=== PATIENT | female | born 1980 | race Caucasian/White ===

== ENCOUNTER 2016-06-21 18:15 | Observation (INO) | payer OTHER ==
[2016-06-21] MEDS ORDERED: Zofran 4 MG/2 ML VIAL IV ONE (18:43)
[2016-06-21] MEDS ORDERED: PROTONIX 40 MG IV IV ONE ×2 (18:43→19:11)
--- NOTE | 2016-06-21 18:43 | ERPHSYRPT ---
- History of Present Illness Historian: patient, family Exam Limitations: no limitations Patient Subjective Stated Complaint: Pt states she has had some wheezing and a cough since . Today she started having severe epigastric pain. She states the pain gets worse when she inhales. She also complains of feeling nauseous. She tried to get into Dr. Aguila but he was closed today. Triage Nursing Assessment: Pt alert and oriented x3. skin pink warm and dry. afebrile. pt sob upon arrival. bowel sounds present x4. abdomen soft, nontender. lung sounds clear and equal Timing/Duration: today Activities at Onset: none Quality: cramping, sharpness Abdominal Pain Onset Location: RUQ, LUQ, epigastric Severity of Pain-Max: moderate Severity of Pain-Current: moderate Modifying Factors: Improves With: coughing Associated Symptoms: shortness of breath Hx Tetanus, Diphtheria Vaccination/Date Given: No Hx Influenza Vaccination/Date Given: Yes Hx Pneumococcal Vaccination/Date Given: Yes Immunizations Up to Date: Yes <EDGAR GAYLE - Last Filed: 06/21/16 19:07> <YOSELIN JOHNSON - Last Filed: 06/21/16 21:47> - History of Present Illness Time Seen by Provider: 06/21/16 18:25 Allergies/Adverse Reactions: Sulfa (Sulfonamide Antibiotics) [Sulfa(Sulfonamide Antibiotics)] Allergy ( Verified 06/21/16 18:28) Rash topiramate [From Topamax] Allergy (Verified 06/21/16 18:28) confusion aspirin Adverse Reaction (Severe, Verified 06/21/16 18:28) advised not to take it d/t it will cause her to bleed Home Medications: Albuterol 8 gm Mdi Hfa [Ventolin Hfa MDI] 2 puff IH Q4HPRN PRN 07/14/14 [ History] Metformin HCl 500 mg [Glucophage 500 MG] 500 mg PO DAILY PRN 07/14/14 [ History] Citalopram Hydrobromide 20 mg* [ceLEXa 20 MG] 20 mg PO DAILY 07/24/14 [ History] Lorazepam 0.5 mg [Ativan 0.5 MG] 0.5 mg PO BID 07/02/15 [History] Montelukast Sodium [Singulair] 10 mg PO DAILY 07/02/15 [History] Sitagliptin Phosphate [Januvia] 100 mg PO DAILY 07/08/15 [History] Famotidine 40 mg PO BID 03/09/16 [History] Levothyroxine Sodium 75 Mcg [Synthroid 75 Mcg] 75 mcg PO DAILY 03/09/16 [ History] Metformin HCl 500 mg [Glucophage 500 MG] 250 mg PO HSPRN PRN 03/09/16 [ History] Multivitamin with Folic Acid [One Daily Multivitamin Tablet] 1 tab PO DAILY [History] Diphenhydramine HCl 25 mg [Benadryl 25 mg Capsule] 25 mg PO QHS 05/28/16 [ History] Prednisone 20 mg [Deltasone 20 mg] 20 mg PO DAILY 05/28/16 [History] Albuterol 2.5 mg/3 ml Neb [Proventil 2.5 mg/3 ml Neb] 2.5 mg IH Q4HPRN PRN 06/21/16 [History] - Review of Systems Constitutional: No Symptoms Eyes: No Symptoms Ears, Nose, & Throat: No Symptoms Respiratory: Cough, Dyspnea Cardiac: No Symptoms Abdominal/Gastrointestinal: Abdominal Pain, Nausea Musculoskeletal: No Symptoms Skin: No Symptoms Neurological: No Symptoms Psychological: No Symptoms Endocrine: No Symptoms Hematologic/Lymphatic: No Symptoms Immunological/Allergic: No Symptoms <EDGAR GAYLE - Last Filed: 06/21/16 19:07> - Past Medical History Pertinent Past Medical History: Yes Neurological History: Migraines, Other ENT History: No Pertinent History Cardiac History: High Cholesterol, Hypertension, Other Respiratory History: Asthma, Bronchitis, COPD, Sleep Apnea Endocrine Medical History: Diabetes Type II, Hypothyroidism Musculoskeletal History: Other GI Medical History: No Pertinent History History: No Pertinent History Psycho-Social History: Anxiety, Depression Female Reproductive Disorders: Menstrual Problems, Other Other Medical History: ANEMIA. ITP - Past Surgical History Past Surgical History: No Neuro Surgical History: No Pertinent History Cardiac: No Pertinent History Respiratory: No Pertinent History Gastrointestinal: No Pertinent History Genitourinary: No Pertinent History Musculoskeletal: No Pertinent History Female Surgical History: No Pertinent History - Social History Smoking Status: Never smoker Exposure to second hand smoke: Yes Alcohol Use: None Drug Use: none Patient Lives Alone: No Significant Family History: no pertinent family hx - Female History Hx Last Menstrual Period: 05/22/2016 Hx Now: No <EDGAR GAYLE - Last Filed: 06/21/16 19:07> - Physical Exam General Appearance: moderate distress, obese (with truncal obesity prominent) Eye Exam: eyes nml inspection Ears, Nose, Throat Exam: normal ENT inspection, pharynx normal Neck Exam: normal inspection, non-tender, supple, full range of motion Respiratory Exam: normal breath sounds, chest tenderness (lower costal margins canelo), lungs clear, airway intact Cardiovascular Exam: regular rate/rhythm, normal heart sounds, normal peripheral pulses Gastrointestinal/Abdomen Exam: soft, normal bowel sounds, tenderness (RUQ, LUQ, and epigastrium) Back Exam: normal inspection, normal range of motion Extremity Exam: normal inspection, normal range of motion, pelvis stable Neurologic Exam: alert, 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, cooperative Skin Exam: normal color, warm, dry SpO2 Interpretation: normal SpO2: 97 Oxygen Delivery: Room Air <EDGAR GAYLE - Last Filed: 06/21/16 19:07> - Course Nursing assessment & vital signs reviewed: Yes <EDGAR GAYLE - Last Filed: 06/21/16 19:07> - Course EKG Interpreted by Me: RATE (85), Sinus Rhythm, NORMAL AXIS, LAFB, Non-specific ST Changes - Radiology Exams cxr X-ray Interpretation: Interpreted by me, Negative - CT Exams abd/pelvis CT Interpretation: Tele-radiologist Report (normal eppendix, fatty liver, no acute) <YOSELIN JOHNSON - Last Filed: 06/21/16 21:47> Ordered Tests: Active Orders 24 hr Category Date Time Status Clean Catch Urine Specimen STAT Care 06/21/16 18:43 Active EKG-ER Only STAT Care 06/21/16 18:43 Active IV Insertion STAT Care 06/21/16 19:07 Active ABDOMEN AND PELVIS W CONTRAST [CT] Stat Exams 06/21/16 19:44 Taken CHEST 1 VIEW (PORTABLE) Stat Exams 06/21/16 18:43 Taken CBC W DIFF Stat Lab 06/21/16 18:59 Completed CMP Stat Lab 06/21/16 18:59 Completed HCG QUALITATIVE,SERUM Stat Lab 06/21/16 19:45 Completed LIPASE Stat Lab 06/21/16 18:59 Completed UA W/ MICROSCOPIC Stat Lab 06/21/16 19:20 Completed Respiratory Nebulizer STAT RT 06/21/16 19:43 Completed Medication Summary Generic Name Dose Route Start Last Admin Trade Name Freq PRN Reason Stop Dose Admin Sodium Chloride 1,000 mls @ 100 mls/hr 06/21/16 19:45 06/21/16 19:49 Sodium Chloride 0.9% 1000 Ml IV 07/21/16 19:44 100 mls/hr .Q10H CAITY Administration Discontinued Medications Generic Name Dose Route Start Last Admin Trade Name Freq PRN Reason Stop Dose Admin Albuterol/Ipratropium 3 ml 06/21/16 19:43 06/21/16 19:57 Duoneb 0.5-3 Mg/3 Ml Neb IH 06/21/16 19:44 3 ml STAT ONE Administration Albuterol/Ipratropium Confirm 06/21/16 19:55 Duoneb 0.5-3 Mg/3 Ml Neb Administered 06/21/16 19:56 Dose 3 ml IH .STK-MED ONE Hydromorphone HCl 0.5 mg 06/21/16 19:44 06/21/16 19:49 Dilaudid 1 Mg/Ml Injection IV 06/21/16 19:45 0.5 mg STAT ONE Administration Hydromorphone HCl Confirm 06/21/16 19:47 Dilaudid 1 Mg/Ml Injection Administered 06/21/16 19:48 Dose 1 mg .ROUTE .STK-MED ONE Hydromorphone HCl 0.5 mg 06/21/16 21:39 Dilaudid 1 Mg/Ml Injection IV 06/21/16 21:40 STAT ONE Sodium Chloride Confirm 06/21/16 19:47 Sodium Chloride 0.9% 1000 Ml Administered 06/21/16 19:48 Dose 1,000 mls @ ud .ROUTE .STK-MED ONE Ondansetron HCl 4 mg 06/21/16 18:43 06/21/16 19:14 Zofran 4 Mg/2 Ml Vial IV 06/21/16 18:44 4 mg STAT ONE Administration Ondansetron HCl Confirm 06/21/16 19:11 Zofran 4 Mg/2 Ml Vial Administered 06/21/16 19:12 Dose 4 mg .ROUTE .K-MED ONE Pantoprazole Sodium 40 mg 06/21/16 18:43 06/21/16 19:14 Protonix 40 Mg Iv IV 06/21/16 18:44 40 mg STAT ONE Administration Pantoprazole Sodium Confirm 06/21/16 19:11 Protonix 40 Mg Iv Administered 06/21/16 19:12 Dose 40 mg IV .K-MED ONE Lab/Rad Data: Laboratory Result Diagrams 06/21/16 18:59 06/21/16 18:59 Laboratory Results 06/21/16 06/21/16 06/21/16 Range/Units 19:45 19:20 18:59 WBC (4.0-10.5) K/mm3 RBC (4.1-5.4) M/mm3 Hgb (12.0-16.0) gm/dl Hct (35-47) % MCV (78-100) fl MCH (26-32) pg MCHC (32-36) g/dl RDW (11.5-14.0) % Plt Count (150-450) K/mm3 MPV (6-9.5) fl Gran % (36.0-66.0) % Lymphocytes % (24.0-44.0) % Monocytes % (0.0-12.0) % Eosinophils % (0.00-5.0) % Basophils % (0.0-0.4) % Basophils # (0-0.4) Sodium 138 (136-145) mEq/L Potassium 3.5 (3.5-5.1) mEq/L Chloride 104 (98-107) mEq/L Carbon Dioxide 25.9 (21-32) mEq/L Anion Gap 12.0 (5-15) MEQ/L BUN 21 H (9-20) mg/dL Creatinine 0.94 (0.55-1.30) mg/dl Estimated GFR > 60 ML/MIN Glucose 207 H (70-110) MG/DL Calcium 8.7 (8.5-10.1) mg/dL Total Bilirubin 0.2 (0.2-1.0) mg/dL AST 9 L (15-37) U/L ALT 38 (12-78) U/L Alkaline Phosphatase 109 (46-116) U/L Serum Total Protein 6.9 (6.4-8.2) gm/dL Albumin 3.3 L (3.4-5.0) g/dL Lipase 107 (73-393) U/L Serum , Qual NEGATIVE (Negative) Ur Collection Type CLEAN CATCH Urine Color YELLOW (YELLOW) Urine Appearance CLEAR (CLEAR) Urine pH 5.5 (5-6) Ur Specific [place] 1.010 (1.005-1.025) Urine Protein NEGATIVE (Negative) Urine Glucose (UA) NEGATIVE (NEGATIVE) mg/dL Urine Ketones NEGATIVE (NEGATIVE) Urine Nitrite NEGATIVE (NEGATIVE) Urine Bilirubin NEGATIVE (NEGATIVE) Urine Urobilinogen 0.2 (0-1) mg/dL Urine WBC (Auto) MODERATE (NEGATIVE) Urine RBC (Auto) NEGATIVE (0-5) Chago/ul Urine Microscopic WBC 2-5 (0-5) /HPF Ur Epithelial Cells MODERATE (FEW) /HPF Urine Bacteria FEW (NEGATIVE) /HPF Specimen Received [id number] 06/21/16 Range/Units 18:59 WBC 7.1 (4.0-10.5) K/mm3 RBC 3.86 L (4.1-5.4) M/mm3 Hgb 10.6 L (12.0-16.0) gm/dl Hct 33.4 L (35-47) % MCV 86.5 (78-100) fl MCH 27.4 (26-32) pg MCHC 31.7 L (32-36) g/dl RDW 14.3 H (11.5-14.0) % Plt Count 284 (150-450) K/mm3 MPV 9.1 (6-9.5) fl Gran % 70.9 H (36.0-66.0) % Lymphocytes % 19.6 L (24.0-44.0) % Monocytes % 6.5 (0.0-12.0) % Eosinophils % 2.6 (0.00-5.0) % Basophils % 0.4 (0.0-0.4) % Basophils # 0.03 (0-0.4) Sodium (136-145) mEq/L Potassium (3.5-5.1) mEq/L Chloride (98-107) mEq/L Carbon Dioxide (21-32) mEq/L Anion Gap (5-15) MEQ/L BUN (9-20) mg/dL Creatinine (0.55-1.30) mg/dl Estimated GFR ML/MIN Glucose (70-110) MG/DL Calcium (8.5-10.1) mg/dL Total Bilirubin (0.2-1.0) mg/dL AST (15-37) U/L ALT (12-78) U/L Alkaline Phosphatase (46-116) U/L Serum Total Protein (6.4-8.2) gm/dL Albumin (3.4-5.0) g/dL Lipase (73-393) U/L Serum , Qual (Negative) Ur Collection Type Urine Color (YELLOW) Urine Appearance (CLEAR) Urine pH (5-6) Ur Specific Greenleaf (1.005-1.025) Urine Protein (Negative) Urine Glucose (UA) (NEGATIVE) mg/dL Urine Ketones (NEGATIVE) Urine Nitrite (NEGATIVE) Urine Bilirubin (NEGATIVE) Urine Urobilinogen (0-1) mg/dL Urine WBC (Auto) (NEGATIVE) Urine RBC (Auto) (0-5) Chago/ul Urine Microscopic WBC (0-5) /HPF Ur Epithelial Cells (FEW) /HPF Urine Bacteria (NEGATIVE) /HPF Specimen Received <EDGAR GAYLE - Last Filed: 06/21/16 19:07> - Progress Will see patient in: hospital (observation) Counseled pt/family regarding: lab results, diagnosis, need for follow-up, rad results <YOSELIN JOHNSON - Last Filed: 06/21/16 21:47> - Progress Progress Note: 06/21/16 21:45 The patient was initially seen by Dr Gayle. She usually has DM and asthma. Tonite she has upper abd pain since all day. No hx of this in the past. No prior abd surgeries. States not . No fever. PE: Very tender epigastrum. Some guarding. No murphys sign. Lungs mostly clear. CAlled Dr Ramy Mendoza for [facility] and will place in obs and consult surgeon and get GB sonogram. (YOSELIN JOHNSON) <EDGAR GAYLE - Last Filed: 06/21/16 19:07> - Departure Time of Disposition: 21:46 Departure Disposition: Observation Critical Care Time: No <YOSELIN JOHNSON - Last Filed: 06/21/16 21:47> - Departure Clinical Impression: Type 2 diabetes mellitus with hyperglycemia, without long-term current use of insulin, Anxiety disorder, Epigastric abdominal pain, Hx of intrinsic asthma Condition: Fair Referrals: TIM MAGUIRE MD [Primary Care Provider] -
[2016-06-21 19:05] LABS: BASOPHIL % 0.4 % (0.0-0.4); Eosinophil % 2.6 % (0.00-5.0); Granulocytes % 70.9 % (36.0-66.0); Lymphocytes % 19.6 % (24.0-44.0); Mean Cell Volume 86.5 fl (78-100); Mean Corpuscular Hemoglobin 27.4 pg (26-32); Mean Platelet Volume 9.1 fl (6-9.5); Monocytes % 6.5 % (0.0-12.0); Platelet Count 284 K/mm3 (150-450); Red Blood Count 3.86 M/mm3 (4.1-5.4); Red Cell Distribution Width 14.3 % (11.5-14.0); White Blood Count 7.1 K/mm3 (4.0-10.5)
[2016-06-21] MEDS ORDERED: Zofran 4 MG/2 ML VIAL ONE (19:11)
[2016-06-21 19:34] LABS: COMPLETE URINE MICROSCOPIC? YES; Collection Type CLEAN CATCH; Epithelial Cells MODERATE /HPF (FEW); Ph 5.5 (5-6)
[2016-06-21 19:35] LABS: Bacteria FEW /HPF (NEGATIVE)
[2016-06-21 19:37] LABS: ALBUMIN 3.3 g/dL (3.4-5.0); ALKALINE PHOSPHATASE 109 U/L (46-116); BILIRUBIN,TOTAL 0.2 mg/dL (0.2-1.0); BLOOD UREA NITROGEN 21 mg/dL (9-20); CHLORIDE 104 mEq/L (98-107); Carbon Dioxide 25.9 mEq/L (21-32); Glucose 207 MG/DL (70-110); LIPASE 107 U/L (73-393); Potassium 3.5 mEq/L (3.5-5.1); SGOT/AST 9 U/L (15-37); SGPT/ALT 38 U/L (12-78); SODIUM 138 mEq/L (136-145); Total Protein 6.9 gm/dL (6.4-8.2)
[2016-06-21] MEDS ORDERED: DUONEB 0.5-3 MG/3 ml Neb IH ONE ×2 (19:43→19:55)
[2016-06-21] MEDS ORDERED: DILAUDID 1 MG/ML INJECTION IV ONE ×2 (19:44→21:39)
[2016-06-21] MEDS ORDERED: Sodium Chloride 0.9% 1000 ML 1,000 ML IV SCH (19:45)
[2016-06-21] MEDS ORDERED: DILAUDID 1 MG/ML INJECTION ONE ×2 (19:47→21:52)
[2016-06-21] MEDS ORDERED: Sodium Chloride 0.9% 1000 ML 1,000 ML ONE (19:47)
[2016-06-21] MEDS ORDERED: DUONEB 0.5-3 MG/3 ml Neb IH PRN (22:12)
[2016-06-21] MEDS ORDERED: NovoLOG Insulin SQ PRN (22:12)
[2016-06-21] MEDS: Sodium Chloride 0.9% 1000 ML 1,000 ML IV SCH (22:45)
[2016-06-22] MEDS: DILAUDID 2 MG INJECTION IV PRN ×4 (03:25→17:00)
[2016-06-22 05:48] LABS: Mean Cell Volume 87.2 fl (78-100); Mean Platelet Volume 9.1 fl (6-9.5); Platelet Count 292 K/mm3 (150-450); Red Blood Count 3.75 M/mm3 (4.1-5.4); Red Cell Distribution Width 14.7 % (11.5-14.0); White Blood Count 7.1 K/mm3 (4.0-10.5)
[2016-06-22 06:06] LABS: Mean Corpuscular Hemoglobin 27.4 pg (26-32)
[2016-06-22 06:18] LABS: ALBUMIN 3.3 g/dL (3.4-5.0); ALKALINE PHOSPHATASE 92 U/L (46-116); ANION GAP 11.4 MEQ/L (5-15); BILIRUBIN,TOTAL 0.3 mg/dL (0.2-1.0); BLOOD UREA NITROGEN 19 mg/dL (9-20); CHLORIDE 107 mEq/L (98-107); Carbon Dioxide 28.2 mEq/L (21-32); Glucose 104 MG/DL (70-110); Potassium 3.8 mEq/L (3.5-5.1); SGOT/AST 10 U/L (15-37); SGPT/ALT 36 U/L (12-78); SODIUM 143 mEq/L (136-145); Total Protein 6.7 gm/dL (6.4-8.2)
[2016-06-22] MEDS: Sodium Chloride 0.9% 1000 ML 1,000 ML IV SCH ×2 (06:44→17:00)
[2016-06-22] MEDS: Zofran 4 MG/2 ML VIAL IV PRN ×2 (08:11→13:13)
--- NOTE | 2016-06-22 08:29 | XRAY ---
Indication: Short of breath and wheezing. Comparison: May 28, 2016 Portable chest again demonstrates normal heart, lungs, and bony thorax.
--- NOTE | 2016-06-22 08:32 | XRAY ---
Indication: Bilateral upper abdominal pain and nausea. Multiple contiguous axial images obtained through the abdomen and pelvis using 80 cc Isovue 370 contrast only. Comparison: July 23, 2014 Lung bases are clear. Heart is not enlarged. Noncontrasted stomach and bowel loops appear nonobstructed. There is now mild diffuse scattered colonic fecal debris. Normal appendix. No free fluid/air. Stable fatty liver and small fatty umbilical hernia. Remaining liver, gallbladder, pancreas, spleen, adrenal glands, kidneys, ureters, bladder, uterus, and aorta appear unremarkable. No pathologic retroperitoneal lymphadenopathy. Osseous structures intact. Impression: 1. Fecal stasis without obstruction. 2. Stable fatty liver and fatty umbilical hernia. 3. No acute intra-abdominal/pelvic abnormalities. CT DI is 28.13
[2016-06-22 08:53] LABS: BAND 2 % (0.0-2.0); Platelet Estimate NORMAL (NORMAL); Total Cells Counted 100
[2016-06-22] MEDS ORDERED: BENADRYL 50 MG/ML IV ONE (09:52)
[2016-06-22] MEDS ORDERED: HOLD METFORMIN PRODUCTS FOR 48 HOURS MC SCH (10:00)
[2016-06-22] MEDS ORDERED: PROTONIX 40 MG IV IV SCH (10:00)
--- NOTE | 2016-06-22 12:03 | XRAY ---
Indication: Right upper quadrant pain. Two-dimensional right upper quadrant abdominal sonogram performed. Comparison: July 24, 2014 Sonogram again limited due to body habitus. Pancreas not seen and the liver is poorly visualized. Liver appears again fatty in echogenicity. No ascites. Gallbladder normally distended without gallstones, wall thickening, or pericholecystic fluid. Common bile duct measures 6.2 mm. No intrahepatic biliary distention. Right kidney measures 14.2 cm in length. No renal mass or hydronephrosis. Impression: Again limited exam due to body habitus. Stable fatty liver. Again negative gallbladder sonogram.
--- NOTE | 2016-06-22 14:50 | HP ---
HISTORY OF PRESENT ILLNESS: Gertrude Lees is a 35 year old woman with past medical history of hypertension, asthma, diabetes mellitus, anxiety/depression, chronic pain syndrome and obesity. She was admitted through the emergency room yesterday with symptoms of upper abdominal pain which has been ongoing for one and a half weeks however was particularly worse yesterday. It was associated with nausea. There was no precipitating factor as per patient. Also she had been moving her bowels earlier, too. The patient had also complained of some wheezing, chest congestion for about three to four days. After initial evaluation in the emergency room she was treated with Albuterol/Atrovent nebulization, Dilaudid 1 mg IV x2, Zofran 4 mg IV x1, Protonix 40 mg IV x1. She was admitted to the medical floor for further monitoring and management. Since admission she was kept NPO and underwent additional studies. At the time of this evaluation she is alert, awake, comfortable, still having some upper abdominal pain. However it is controlled with Dilaudid. Complains of nausea. No history of vomiting. PAST MEDICAL HISTORY: As noted above. History of chronic anemia, idiopathic thrombocytopenic purpura and hypothyroidism. PAST SURGICAL HISTORY: Noncontributory. MEDICATIONS: Current medications were reviewed. ALLERGIES: SULFA, TOPAMAX, ASPIRIN. FAMILY HISTORY: Noncontributory to current admission. SOCIAL HISTORY: The patient has not smoked but has history of exposure to secondhand smoke. Denies alcohol abuse or illicit drug use. 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 REVIEW OF SYSTEMS: Denies headache or dizziness. Denies chest pain. Complains of shortness of breath (mild). Complains of cough/chest congestion. Complains of upper abdominal pain, nausea. No vomiting. Denies constipation or diarrhea. Denies urinary complaints. PHYSICAL EXAMINATION: A middle aged woman lying comfortably in bed, not in acute distress. VITAL SIGNS: Blood pressure 107/58, heart rate 74, respiratory rate 18, temperature 98.2F. Oxygen saturations 99% on 2 liters. HEENT: No pallor or icterus is noted. NECK: No JVD is present. CVS: S1, S2 present. RESPIRATORY: Breath sounds are bilaterally diminished and clear to auscultation. ABDOMEN: Obese, soft, mild tenderness present epigastric and right upper quadrant area. No guarding or rigidity present. NEURO: She is alert, oriented x3. EXTREMITIES: No edema on bilateral lower extremities. LABORATORY DATA AND TESTS: Labs from admission were reviewed. Labs from today showed CBC with white blood cell 7.1, hemoglobin 10.3, hematocrit 32.7, neutrophils 73, bands 2, lymphocytes 22. Chest x-ray on admission was normal. CT scan of abdomen and pelvis showed fecal stasis without obstruction, stable fatty liver and fatty umbilical hernia, no acute intra-abdominal/pelvic pathology. Gallbladder ultrasound from earlier today showed limited exam due to body habitus, stable fatty liver, negative gallbladder sonogram. EKG showed sinus rhythm, nonspecific ST-T changes. ASSESSMENT: A 35 year old woman with impression: 1) Upper abdominal pain (epigastric and right upper quadrant area). 2) Acute bronchitis. 3) History of hypertension/congestive heart failure. 4) History of diabetes mellitus. 5) History of asthma. 6) Chronic pain syndrome. 7) Anxiety/depression. 8) Morbid obesity. 9) Hypothyroidism. 10) Chronic anemia. 11) History of idiopathic thrombocytopenic purpura. 12) Questionable urinary tract infection. PLAN: The patient is admitted for further monitoring and management. Since admission she has been kept NPO and will continue for now. Will continue PRN analgesics and antiemetic. Surgical consultation has been requested and is pending. Will add IV proton pump inhibitor. Also will continue to hold prednisone at this time. Will obtain baseline troponin due to the patient's multiple cardiac risk factors. The patient's clinical condition, work up results and plan of management was discussed with her. She seems to be in understanding and agreement.
[2016-06-22] MEDS ORDERED: Singulair 10 MG PO SCH (15:00)
[2016-06-22] MEDS ORDERED: KEFLEX 500 MG PO SCH (15:00)
[2016-06-22] MEDS ORDERED: SYNTHROID 75 MCG PO SCH (15:00)
[2016-06-22] MEDS ORDERED: THERAGRAN MULTIVITAMIN PO SCH (15:00)
[2016-06-22] MEDS ORDERED: TYLENOL 325 MG PO PRN (20:10)
[2016-06-22] MEDS ORDERED: TYLENOL 325 MG ONE (20:12)
[2016-06-22 20:22] VITALS: BP 108/61
[2016-06-22 21:12] VITALS: PULSE 80; O2SAT 95
[2016-06-22] MEDS ORDERED: Ativan 0.5 MG PO SCH (22:00)
[2016-06-22] MEDS ORDERED: Pepcid 20 MG PO SCH (22:00)
[2016-06-22] MEDS ORDERED: BENADRYL 25 MG CAPSULE PO SCH (22:00)
[2016-06-22] MEDS ORDERED: NON-FORMULARY ITEM (Famotidine [Famotidine] 40 MG) PO SCH (22:00)
--- NOTE | 2016-06-23 08:32 | CONS ---
CONSULT DATE: 06/22/2016 HISTORY: The patient is a 35 year-old female with multiple medical problems came in with some shortness of breath, some upper abdominal aches and pains associated with slight nausea. No vomiting. No bloody stool. No diarrhea. She told me the pain just started yesterday. She had some vague aches a week or so prior to that. She had some chest congestion. PAST MEDICAL HISTORY: Chronic pain syndrome, obesity, anxiety, depression, diabetes, asthma, hypertension. PAST SURGICAL HISTORY: She said she has got all of her parts. She has not had any prior abdominal surgery. MEDICATIONS: Prior to admission includes Albuterol, Proventil, Metformin, Citalopram, lorazepam, Montelukast, Januvia, famotidine, levothyroxine for some hypothyroidism, Metformin, multivitamin, diphenhydramine, prednisone 20 mg daily. ALLERGIES: SULFA, TOPAMAX, ASPIRIN. FAMILY HISTORY: Cancer, heart disease, diabetes. No family history of inflammatory bowel disease. SOCIAL HISTORY: No smoking or alcohol abuse. She is exposed to secondhand smoke. REVIEW OF SYSTEMS: Ten systems reviewed pertinent for chest congestion and respiratory issues as well as multiple medical problems. No current chest pain or shortness of breath. She is wearing glasses. Otherwise she has hypercholesterolemia, hypertension, hypothyroidism, diabetes, sleep apnea, chronic obstructive pulmonary disease, bronchitis, asthma, anxiety/depression, history of some idiopathic thrombocytopenic purpura in the past. PHYSICAL EXAMINATION: GENERAL: No acute distress. HEENT: Sclera nonicteric. NECK: No JVD. CHEST: Equal excursion, nonlabored breathing. CVS: Regular rhythm and pulse. ABDOMEN: Obese, soft. She had some mild tenderness along the right costal margin that is much improved from when she came in before, otherwise no peritoneal signs. EXTREMITIES: No edema. NEURO: Alert, moving extremities grossly symmetrically. LAB DATA AND TESTS: CT scan and ultrasound negative. Gallbladder ultrasound fatty liver, no gallstones. Chest x-ray fairly unremarkable. CT scan compared to prior study 07/23/2014 to current study shows no acute intra-abdominal pelvic abnormalities, fatty liver, small fatty umbilical hernia otherwise some fecal stasis without any evidence of obstruction, normal appendix, no free air. Hemoglobin A1C 6.3. White blood cell count 7.1, hemoglobin 10.3, PLT 292,000. Liver function test unremarkable. Total bilirubin 0.3, alkaline phosphatase 92, lipase 107. HCG was negative. IMPRESSION: Some vague upper abdominal pain that is improved in this 35 year-old female with multiple medical problems. It could be anything from some gastritis which she had been on prednisone in the past, some duodenitis versus some chronic cholecystitis or biliary dyskinesia. She said she has not had a HIDA scan before. Ultrasound does not show any stones. I feel she would benefit from HIDA scan for further evaluation as above and possible consideration of upper and lower endoscopy for further evaluation if the HIDA is negative. The patient said she has not had prior endoscopy. Either way no emergent surgery is necessary. She actually wants to eat and go home as she is feeling much better than when she came in. If she does go home then it could be worked up as an outpatient. I would recommend checking HIDA and if that is negative consider upper and/or lower endoscopy as she has a little bit low hemoglobin. She agrees with the plan. She wants to try to eat and possibly go home tonight. If she does can set up HIDA scan as an outpatient.
[2016-06-23] MEDS ORDERED: ceLEXa 20 MG PO SCH (10:00)
[2016-06-23] MEDS ORDERED: MULTIVITAMIN WITH FOLIC ACID PO SCH (10:00)
== END 2016-06-22 22:35 | disposition home or self-care (01) ==
LOC: ED 18:15 → MED SURG 22:03
PROVIDERS: ADMIT General Practice; ATTEND General Practice
DX: R10.11 Right upper quadrant pain (principal); R10.13 Epigastric pain; J20.9 Acute bronchitis, unspecified; E11.9 Type 2 diabetes mellitus without complications; Z79.4 Long term (current) use of insulin; I11.0 Hypertensive heart disease with heart failure; I50.9 Heart failure, unspecified; J45.909 Unspecified asthma, uncomplicated; G89.4 Chronic pain syndrome; F45.42 Pain disorder with related psychological factors; F41.8 Other specified anxiety disorders; E66.01 Morbid (severe) obesity due to excess calories; E03.9 Hypothyroidism, unspecified; D53.9 Nutritional anemia, unspecified
CPT/HCPCS: 36000; 36415; 71010; 74177; 76705; 80053; 81000; 82962; 83036; 83690; 84484; 84703; 85025; 93005; 94640; 94760; 96360; 96361; 96375; 96376; 99285; G0378; J1170; J1200; J2405

== ENCOUNTER 2016-07-12 19:17 | Emergency (ER) | payer OTHER ==
[2016-07-12] MEDS ORDERED: PROVENTIL 2.5 MG/3 ML NEB IH ONE ×2 (19:41→19:56)
--- NOTE | 2016-07-12 19:47 | ERPHSYRPT ---
- History of Present Illness Time Seen by Provider: 07/12/16 19:29 Source: patient Exam Limitations: no limitations Patient Subjective Stated Complaint: reports wheezing for 1 week - right-sided cp et arm pain as well - increased swelling in the legs - reports also 1 episode of diarrhea Triage Nursing Assessment: ambulatory to treatment area - steady gait - moves all extremities with equal strength. alert/oriented - grimmacing affect. skin pwd - no rash/injury. resps easy - tachypnea - non-labored Physician History: FOR THE PAST WEEK PT HAS HAD ACHY/DULL RIGHT ANTERIOR CHEST PAIN ONLY WITH MOVEMENT OF HER RIGHT SHOULDER AND DEEP BREATHING, WHEEZING AND A NON- PRODUCTIVE COUGH; FOR THE PAST 3 DAYS CHILLS; FOR THE PAST 2 DAYS DIARRHEA X1 WITHOUT BLOOD. PT ALSO STATES SHE HAS HAD SWELLING OF BOTH FEET FOR YEARS. Allergies/Adverse Reactions: Sulfa (Sulfonamide Antibiotics) [Sulfa(Sulfonamide Antibiotics)] Allergy ( Verified 07/12/16 19:32) Rash topiramate [From Topamax] Allergy (Verified 07/12/16 19:32) confusion aspirin Adverse Reaction (Severe, Verified 07/12/16 19:32) advised not to take it d/t it will cause her to bleed Home Medications: Albuterol 8 gm Mdi Hfa [Ventolin Hfa MDI] 2 puff IH Q4HPRN PRN 07/14/14 [ History] Metformin HCl 500 mg [Glucophage 500 MG] 500 mg PO DAILY PRN 07/14/14 [ History] Citalopram Hydrobromide 20 mg* [ceLEXa 20 MG] 20 mg PO DAILY 07/24/14 [ History] Lorazepam 0.5 mg [Ativan 0.5 MG] 0.5 mg PO BID 07/02/15 [History] Montelukast Sodium [Singulair] 10 mg PO DAILY 07/02/15 [History] Sitagliptin Phosphate [Januvia] 100 mg PO DAILY 07/08/15 [History] Famotidine 40 mg PO BID 03/09/16 [History] Levothyroxine Sodium 75 Mcg [Synthroid 75 Mcg] 75 mcg PO DAILY 03/09/16 [ History] Metformin HCl 500 mg [Glucophage 500 MG] 250 mg PO HSPRN PRN 03/09/16 [ History] Multivitamin with Folic Acid [One Daily Multivitamin Tablet] 1 tab PO DAILY [History] Diphenhydramine HCl 25 mg [Benadryl 25 mg Capsule] 25 mg PO QHS 05/28/16 [ History] Prednisone 20 mg [Deltasone 20 mg] 20 mg PO DAILY 05/28/16 [History] Albuterol 2.5 mg/3 ml Neb [Proventil 2.5 mg/3 ml Neb] 2.5 mg IH Q4HPRN PRN 06/21/16 [History] Hx Tetanus, Diphtheria Vaccination/Date Given: Yes Hx Influenza Vaccination/Date Given: No Hx Pneumococcal Vaccination/Date Given: No Immunizations Up to Date: Yes - Review of Systems Constitutional: Chills Respiratory: Cough, Wheezing Cardiac: Chest Pain Abdominal/Gastrointestinal: Diarrhea Musculoskeletal: Other (SWELLING OF BOTH FEET FOR YEARS) All Other Systems: Reviewed and Negative - Past Medical History Pertinent Past Medical History: Yes Neurological History: Migraines, Other ENT History: No Pertinent History Cardiac History: High Cholesterol, Hypertension, Other Respiratory History: Asthma, Bronchitis, COPD, Sleep Apnea Endocrine Medical History: Diabetes Type II, Hypothyroidism Musculoskeletal History: Other GI Medical History: No Pertinent History History: No Pertinent History Psycho-Social History: Anxiety, Depression Female Reproductive Disorders: Menstrual Problems, Other Other Medical History: ANEMIA. ITP - Past Surgical History Past Surgical History: No Neuro Surgical History: No Pertinent History Cardiac: No Pertinent History Respiratory: No Pertinent History Gastrointestinal: No Pertinent History Genitourinary: No Pertinent History Musculoskeletal: No Pertinent History Female Surgical History: No Pertinent History - Social History Smoking Status: Never smoker Exposure to second hand smoke: No Alcohol Use: None Drug Use: none Patient Lives Alone: No Significant Family History: no pertinent family hx - Female History Hx Last Menstrual Period: 2 weeks Hx Now: No - Nursing Vital Signs Nursing Vital Signs: Initial Vital Signs Temperature Source Oral Pulse Rate [Right Radial] 100 Pulse Rate 102 Respiratory Rate 14 Blood Pressure [Right Arm] 124/75 Pain Intensity 10 - Physical Exam General Appearance: alert Eye Exam: PERRL/EOMI, eyes nml inspection Ears, Nose, Throat Exam: TMs normal, pharynx normal, moist mucous membranes Neck Exam: normal inspection Respiratory Exam: wheezing (MINIMAL EXPIRATORY WHEEZING OVER BOTH POSTERIOR BASES) Cardiovascular Exam: regular rate/rhythm, normal heart sounds Gastrointestinal/Abdomen Exam: soft, normal bowel sounds Back Exam: normal range of motion Extremity Exam: normal inspection, No pedal edema Neurologic Exam: alert, cooperative Skin Exam: warm, dry SpO2 Interpretation: normal SpO2: 97 Oxygen Delivery: Room Air - Course Nursing assessment & vital signs reviewed: Yes EKG Interpreted by Me: RATE (85), Sinus Rhythm, NORMAL AXIS, NORMAL INTERVALS - Radiology Exams Chest X-ray Interpretation: Interpreted by me, No Pneumonia Ordered Tests: Active Orders 24 hr Category Date Time Status EKG-ER Only STAT Care 07/12/16 19:39 Active CHEST 2 VIEWS (PA AND LAT) Stat Exams 07/12/16 19:40 Taken AMYLASE Stat Lab 07/12/16 19:58 Completed CBC W DIFF Stat Lab 07/12/16 19:58 Completed CMP Stat Lab 07/12/16 19:58 Completed CULTURE,URINE Stat Lab 07/12/16 20:53 Ordered HCG QUALITATIVE,SERUM Stat Lab 07/12/16 19:58 Completed LIPASE Stat Lab 07/12/16 19:58 Completed MAGNESIUM Stat Lab 07/12/16 19:58 Completed TROPONIN Stat Lab 07/12/16 19:58 Completed UA W/ MICROSCOPIC Stat Lab 07/12/16 20:33 Completed Respiratory Nebulizer STAT RT 07/12/16 19:41 Completed Medication Summary Generic Name Dose Route Start Last Admin Trade Name Freq PRN Reason Stop Dose Admin Magnesium Oxide 400 mg 07/12/16 22:00 Mag-Ox 400 PO 08/11/16 21:59 BID CAITY Discontinued Medications Generic Name Dose Route Start Last Admin Trade Name Freq PRN Reason Stop Dose Admin Acetaminophen/Hydrocodone Bitart 2 tab 07/12/16 20:40 07/12/16 20:51 [place] 5/325 Mg PO 07/12/16 20:41 2 tab STAT ONE Administration Acetaminophen/Hydrocodone Bitart Confirm 07/12/16 20:45 [place] 5/325 Mg Administered 07/12/16 20:46 Dose 2 tab .ROUTE .STK-MED ONE Albuterol Sulfate 2.5 mg 07/12/16 19:41 07/12/16 20:04 Proventil 2.5 Mg/3 Ml Neb IH 07/12/16 19:42 2.5 mg STAT ONE Administration Albuterol Sulfate Confirm 07/12/16 19:56 Proventil 2.5 Mg/3 Ml Neb Administered 07/12/16 19:57 Dose 2.5 mg IH .STK-MED ONE Ceftriaxone Sodium 1,000 mg 07/12/16 20:53 Rocephin 1000 Mg Inj IM 07/12/16 20:54 STAT ONE Ondansetron HCl 4 mg 07/12/16 20:41 07/12/16 20:51 Zofran Odt 4 Mg PO 07/12/16 20:42 4 mg STAT ONE Administration Ondansetron HCl Confirm 07/12/16 20:45 Zofran Odt 4 Mg Administered 07/12/16 20:46 Dose 4 mg .ROUTE .STK-MED ONE Lab/Rad Data: Laboratory Result Diagrams 07/12/16 19:58 07/12/16 19:58 Laboratory Results 07/12/16 07/12/16 07/12/16 Range/Units 20:33 19:58 19:58 WBC (4.0-10.5) K/mm3 RBC (4.1-5.4) M/mm3 Hgb (12.0-16.0) gm/dl Hct (35-47) % MCV (78-100) fl MCH (26-32) pg MCHC (32-36) g/dl RDW (11.5-14.0) % Plt Count (150-450) K/mm3 MPV (6-9.5) fl Gran % (36.0-66.0) % Lymphocytes % (24.0-44.0) % Monocytes % (0.0-12.0) % Eosinophils % (0.00-5.0) % Basophils % (0.0-0.4) % Basophils # (0-0.4) Sodium (136-145) mEq/L Potassium (3.5-5.1) mEq/L Chloride (98-107) mEq/L Carbon Dioxide (21-32) mEq/L Anion Gap (5-15) MEQ/L BUN (9-20) mg/dL Creatinine (0.55-1.30) mg/dl Estimated GFR ML/MIN Glucose (70-110) MG/DL Calcium (8.5-10.1) mg/dL Magnesium 1.6 L (1.8-2.4) mg/dL Total Bilirubin (0.2-1.0) mg/dL AST (15-37) U/L ALT (12-78) U/L Alkaline Phosphatase (46-116) U/L Troponin I (0.000-0.056) ng/ml Serum Total Protein (6.4-8.2) gm/dL Albumin (3.4-5.0) g/dL Amylase (25-115) U/L Lipase (73-393) U/L Serum , Qual NEGATIVE (Negative) Ur Collection Type CLEAN CATCH Urine Color YELLOW (YELLOW) Urine Appearance CLEAR (CLEAR) Urine pH 6.0 (5-6) Ur Specific [place] 1.025 (1.005-1.025) Urine Protein NEGATIVE (Negative) Urine Glucose (UA) NEGATIVE (NEGATIVE) mg/dL Urine Ketones NEGATIVE (NEGATIVE) Urine Nitrite NEGATIVE (NEGATIVE) Urine Bilirubin NEGATIVE (NEGATIVE) Urine Urobilinogen 0.2 (0-1) mg/dL Urine WBC (Auto) TRACE (NEGATIVE) Urine RBC (Auto) TRACE-INTACT (0-5) [place]/ul Urine Microscopic RBC 0-2 (0-2) /HPF Urine Microscopic WBC 5-10 (0-5) /HPF Ur Epithelial Cells MODERATE (FEW) /HPF Urine Bacteria FEW (NEGATIVE) /HPF Specimen Received [id number] 07/12/16 07/12/16 Range/Units 19:58 19:58 WBC 7.0 (4.0-10.5) K/mm3 RBC 3.95 L (4.1-5.4) M/mm3 Hgb 10.9 L (12.0-16.0) gm/dl Hct 34.1 L (35-47) % MCV 86.3 (78-100) fl MCH 27.5 (26-32) pg MCHC 32.0 (32-36) g/dl RDW 14.3 H (11.5-14.0) % Plt Count 248 (150-450) K/mm3 MPV 9.5 (6-9.5) fl Gran % 61.3 (36.0-66.0) % Lymphocytes % 26.7 (24.0-44.0) % Monocytes % 8.3 (0.0-12.0) % Eosinophils % 3.3 (0.00-5.0) % Basophils % 0.4 (0.0-0.4) % Basophils # 0.03 (0-0.4) Sodium 142 (136-145) mEq/L Potassium 3.8 (3.5-5.1) mEq/L Chloride 105 (98-107) mEq/L Carbon Dioxide 27.0 (21-32) mEq/L Anion Gap 13.6 (5-15) MEQ/L BUN 19 (9-20) mg/dL Creatinine 1.09 (0.55-1.30) mg/dl Estimated GFR > 60 ML/MIN Glucose 115 H (70-110) MG/DL Calcium 8.6 (8.5-10.1) mg/dL Magnesium (1.8-2.4) mg/dL Total Bilirubin 0.2 (0.2-1.0) mg/dL AST 31 (15-37) U/L ALT 64 (12-78) U/L Alkaline Phosphatase 119 H (46-116) U/L Troponin I 0.022 (0.000-0.056) ng/ml Serum Total Protein 7.1 (6.4-8.2) gm/dL Albumin 3.4 (3.4-5.0) g/dL Amylase 46 (25-115) U/L Lipase 125 (73-393) U/L Serum , Qual (Negative) Ur Collection Type Urine Color (YELLOW) Urine Appearance (CLEAR) Urine pH (5-6) Ur Specific [place] (1.005-1.025) Urine Protein (Negative) Urine Glucose (UA) (NEGATIVE) mg/dL Urine Ketones (NEGATIVE) Urine Nitrite (NEGATIVE) Urine Bilirubin (NEGATIVE) Urine Urobilinogen (0-1) mg/dL Urine WBC (Auto) (NEGATIVE) Urine RBC (Auto) (0-5) [place] Urine Microscopic RBC (0-2) /HPF Urine Microscopic WBC (0-5) /HPF Ur Epithelial Cells (FEW) /HPF Urine Bacteria (NEGATIVE) /HPF Specimen Received - Departure Time of Disposition: 20:57 Departure Disposition: Home Clinical Impression: BRONCHITIS, UTI, HYPOMAGNESEMIA Condition: Fair Critical Care Time: No Instructions: Chest Pain, Bronchitis, Urinary Tract Infection (UTI) Additional Instructions: FOLLOW UP WITH PRIVATE DOCTOR TOMORROW. Prescriptions: Guaifenesin/Codeine Phosphate [Robitussin AC Syrup] 10 ml PO Q4H PRN PRN #120 ml PRN Reason: Cough Cefdinir [Omnicef 300 mg] 300 mg PO BID #20 capsule
[2016-07-12 20:05] LABS: BASOPHIL % 0.4 % (0.0-0.4); Eosinophil % 3.3 % (0.00-5.0); Granulocytes % 61.3 % (36.0-66.0); Lymphocytes % 26.7 % (24.0-44.0); Mean Cell Volume 86.3 fl (78-100); Mean Platelet Volume 9.5 fl (6-9.5); Monocytes % 8.3 % (0.0-12.0); Platelet Count 248 K/mm3 (150-450); Red Blood Count 3.95 M/mm3 (4.1-5.4); Red Cell Distribution Width 14.3 % (11.5-14.0)
[2016-07-12 20:06] LABS: Mean Corpuscular Hemoglobin 27.5 pg (26-32)
[2016-07-12 20:39] LABS: ALBUMIN 3.4 g/dL (3.4-5.0); ALKALINE PHOSPHATASE 119 U/L (46-116); ANION GAP 13.6 MEQ/L (5-15); BILIRUBIN,TOTAL 0.2 mg/dL (0.2-1.0); BLOOD UREA NITROGEN 19 mg/dL (9-20); CHLORIDE 105 mEq/L (98-107); Glucose 115 MG/DL (70-110); LIPASE 125 U/L (73-393); Potassium 3.8 mEq/L (3.5-5.1); SGOT/AST 31 U/L (15-37); SGPT/ALT 64 U/L (12-78); SODIUM 142 mEq/L (136-145); TROPONIN 0.022 ng/ml (0.000-0.056); Total Protein 7.1 gm/dL (6.4-8.2)
[2016-07-12] MEDS ORDERED: NORCO 5/325 MG PO ONE (20:40)
[2016-07-12] MEDS ORDERED: ZOFRAN ODT 4 MG PO ONE (20:41)
[2016-07-12] MEDS ORDERED: NORCO 5/325 MG ONE (20:45)
[2016-07-12] MEDS ORDERED: ZOFRAN ODT 4 MG ONE (20:45)
[2016-07-12 20:50] LABS: COMPLETE URINE MICROSCOPIC? YES; Collection Type CLEAN CATCH
[2016-07-12 20:51] LABS: Bacteria FEW /HPF (NEGATIVE); Epithelial Cells MODERATE /HPF (FEW)
[2016-07-12] MEDS ORDERED: Rocephin 1000 MG INJ IM ONE (20:53)
[2016-07-12] MEDS ORDERED: Rocephin 1000 MG INJ ONE (20:57)
[2016-07-12] MEDS ORDERED: XYLOCAINE 1% HCL 20 ML MDV ONE (20:57)
[2016-07-12] MEDS ORDERED: MAG-OX 400 ONE (20:58)
[2016-07-12 21:28] VITALS: BP 101/67; PULSE 96; O2SAT 96
[2016-07-12] MEDS ORDERED: MAG-OX 400 PO SCH (22:00)
--- NOTE | 2016-07-13 08:48 | XRAY ---
Indication: Cough and wheezing. History of asthma. Comparison: June 21, 2016 PA/lateral chest again demonstrates normal heart, lungs, and bony thorax.
== END 2016-07-12 21:27 | disposition home or self-care (01) ==
LOC: ED 19:17
DX: J40 Bronchitis, not specified as acute or chronic (principal); N39.0 Urinary tract infection, site not specified; E83.42 Hypomagnesemia; E78.00 Pure hypercholesterolemia, unspecified; I10 Essential (primary) hypertension; E11.9 Type 2 diabetes mellitus without complications; E03.9 Hypothyroidism, unspecified; Z79.84 Long term (current) use of oral hypoglycemic drugs
CPT/HCPCS: 36415; 71020; 80053; 81000; 82150; 83690; 83735; 84484; 84703; 85025; 87086; 93005; 94640; 96372; 99283; J0696; Q0162

== ENCOUNTER 2016-07-19 14:21 | Emergency (ER) | payer OTHER ==
[2016-07-19] MEDS ORDERED: PROVENTIL 2.5 MG/3 ML NEB IH ONE ×2 (14:44→14:49)
[2016-07-19] MEDS ORDERED: Sodium Chloride 0.9% 1000 ML 1,000 ML IV STA (14:44)
[2016-07-19] MEDS ORDERED: solu-MEDROL 125 MG IV ONE (14:49)
[2016-07-19] MEDS ORDERED: Levofloxacin 500MG/100ML D5W 100 ML IV ONE ×2 (14:50→15:03)
--- NOTE | 2016-07-19 14:53 | ERPHSYRPT ---
- History of Present Illness Time Seen by Provider: 07/19/16 14:40 Source: patient Exam Limitations: clinical condition Patient Subjective Stated Complaint: pt co increase sob for a week, was seen here and given antibotics , pt has finished meds Triage Nursing Assessment: pt alert and hyperventilating, encouraged to slow deep breaths, resp labored, lungs clear, wheezes to upper airway Physician History: PATIENT WITH HISTORY OF COPD, COMPLAINS OF PRODUCTIVE COUGH, DYSPNEA, FINISHED 7 DAY COURSE OF OMNICEF 300MG TWICE DAILY FOR 7 DAYS. DENIES CHEST PAIN, FEVER. Timing/Duration: week(s) Activities at Onset: none Severity of Dyspnea-Max: moderate Severity of Dyspnea-Current: moderate Possible Cause: occasional episodes Modifying Factors: Improves With: coughing Allergies/Adverse Reactions: Sulfa (Sulfonamide Antibiotics) [Sulfa(Sulfonamide Antibiotics)] Allergy ( Verified 07/19/16 14:31) Rash topiramate [From Topamax] Allergy (Verified 07/19/16 14:31) confusion aspirin Adverse Reaction (Severe, Verified 07/19/16 14:31) advised not to take it d/t it will cause her to bleed Home Medications: Albuterol 8 gm Mdi Hfa [Ventolin Hfa MDI] 2 puff IH Q4HPRN PRN 07/14/14 [ History] Metformin HCl 500 mg [Glucophage 500 MG] 500 mg PO DAILY PRN 07/14/14 [ History] Citalopram Hydrobromide 20 mg* [ceLEXa 20 MG] 20 mg PO DAILY 07/24/14 [ History] Lorazepam 0.5 mg [Ativan 0.5 MG] 0.5 mg PO BID 07/02/15 [History] Montelukast Sodium [Singulair] 10 mg PO DAILY 07/02/15 [History] Sitagliptin Phosphate [Januvia] 100 mg PO DAILY 07/08/15 [History] Famotidine 40 mg PO BID 03/09/16 [History] Levothyroxine Sodium 75 Mcg [Synthroid 75 Mcg] 75 mcg PO DAILY 03/09/16 [ History] Metformin HCl 500 mg [Glucophage 500 MG] 250 mg PO HSPRN PRN 03/09/16 [ History] Multivitamin with Folic Acid [One Daily Multivitamin Tablet] 1 tab PO DAILY [History] Diphenhydramine HCl 25 mg [Benadryl 25 mg Capsule] 25 mg PO QHS 05/28/16 [ History] Prednisone 20 mg [Deltasone 20 mg] 20 mg PO DAILY 05/28/16 [History] Albuterol 2.5 mg/3 ml Neb [Proventil 2.5 mg/3 ml Neb] 2.5 mg IH Q4HPRN PRN 06/21/16 [History] Hx Tetanus, Diphtheria Vaccination/Date Given: Yes Hx Influenza Vaccination/Date Given: Yes Hx Pneumococcal Vaccination/Date Given: No Immunizations Up to Date: Yes - Review of Systems Constitutional: No Fever, No Chills Eyes: No Symptoms Ears, Nose, & Throat: No Symptoms Respiratory: Cough, Dyspnea, Dyspnea on Exertion (MONZON), Stridor Cardiac: No Chest Pain, No Edema, No Syncope Abdominal/Gastrointestinal: No Symptoms, No Abdominal Pain, No Nausea, No Vomiting, No Diarrhea Genitourinary Symptoms: Incontinence, No Dysuria Musculoskeletal: No Symptoms, No Back Pain, No Neck Pain Skin: No Symptoms, No Rash Neurological: No Dizziness, No Focal Weakness, No Sensory Changes Psychological: No Symptoms Endocrine: No Symptoms All Other Systems: Reviewed and Negative - Past Medical History Pertinent Past Medical History: Yes Neurological History: Migraines, Other ENT History: No Pertinent History Cardiac History: High Cholesterol, Hypertension, Other Respiratory History: Asthma, Bronchitis, COPD, Sleep Apnea Endocrine Medical History: Diabetes Type II, Hypothyroidism Musculoskeletal History: Other GI Medical History: No Pertinent History History: No Pertinent History Psycho-Social History: Anxiety, Depression Female Reproductive Disorders: Menstrual Problems, Other Other Medical History: ANEMIA. ITP - Past Surgical History Past Surgical History: No Neuro Surgical History: No Pertinent History Cardiac: No Pertinent History Respiratory: No Pertinent History Gastrointestinal: No Pertinent History Genitourinary: No Pertinent History Musculoskeletal: No Pertinent History Female Surgical History: No Pertinent History - Social History Smoking Status: Never smoker Exposure to second hand smoke: Yes Alcohol Use: None Drug Use: none Patient Lives Alone: Yes Significant Family History: no pertinent family hx - Female History Hx Last Menstrual Period: 4 weeks Hx Now: No - Nursing Vital Signs Nursing Vital Signs: Initial Vital Signs Temperature 98.0 F Temperature Source Oral Pulse Rate 108 Respiratory Rate 18 Blood Pressure [Right Arm] 108/73 Pain Intensity 4 - Physical Exam General Appearance: no apparent distress, alert, other (NO AUDIBLE WHEEZES OR STRIDOR) Eye Exam: PERRL/EOMI Neck Exam: normal inspection, supple Respiratory Exam: diminished breath sounds, wheezing (THERE IS FAINT TERMINAL WHEEZES) Cardiovascular/Chest Exam: normal heart sounds, regular rate/rhythm Abdominal/Gastrointestinal Exam: soft, normal bowel sounds, No tenderness, No distention, No mass Extremity Exam: non-tender, normal range of motion, normal inspection, no calf tenderness, no pedal edema Peripheral Pulses Exam: carotid (R): 2+, carotid (L): 2+, femoral (R): 2+, femoral (L): 2+, dorsalis-pedis (R): 2+, dorsalis-pedis (L): 2+ Neurologic Exam: alert, 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, cooperative, long lines operator II-XII nml as tested, sensation nml, No motor deficits Skin Exam: normal color, warm, No dry SpO2 Interpretation: normal SpO2: 99 Oxygen Delivery: Room Air - Radiology Exams Chest X-ray Interpretation: Discussed w/ radiologist, Negative, No Infiltrates Ordered Tests: Active Orders 24 hr Category Date Time Status IV Insertion STAT Care 07/19/16 14:44 Active CHEST 2 VIEWS (PA AND LAT) Stat Exams 07/19/16 14:46 Completed ARTERIAL BLOOD GASES Stat Lab 07/19/16 14:50 Completed BMP Stat Lab 07/19/16 14:55 Completed CBC W DIFF Stat Lab 07/19/16 14:55 Completed Manual Differential NC Stat Lab 07/19/16 14:55 Completed Peak Expiratory Flow Rate ONCE RT 07/19/16 14:44 Completed Respiratory Nebulizer STAT RT 07/19/16 14:47 Completed Respiratory Nebulizer STAT RT 07/19/16 14:49 Completed Medication Summary Generic Name Dose Route Start Last Admin Trade Name Freq PRN Reason Stop Dose Admin Sodium Chloride 1,000 mls @ 500 mls/hr 07/19/16 14:44 07/19/16 15:05 Sodium Chloride 0.9% 1000 Ml IV 07/19/16 16:43 500 mls/hr .Q2H STA Administration Discontinued Medications Generic Name Dose Route Start Last Admin Trade Name Freq PRN Reason Stop Dose Admin Albuterol Sulfate 2.5 mg 07/19/16 14:44 Proventil 2.5 Mg/3 Ml Neb IH 07/19/16 14:45 STAT ONE Albuterol Sulfate 10 mg 07/19/16 14:49 Proventil 2.5 Mg/3 Ml Neb IH 07/19/16 14:50 STAT ONE Albuterol Sulfate Confirm 07/19/16 14:58 Proventil Solution 2.5 Mg/0.5 Ml Administered 07/19/16 14:59 Dose 10 mg IH .STK-MED ONE Albuterol Sulfate 10 mg 07/19/16 15:23 07/19/16 15:23 Proventil Solution 2.5 Mg/0.5 Ml IH 07/19/16 15:24 10 mg STAT ONE Administration Levofloxacin/Dextrose 100 mls @ 100 mls/hr 07/19/16 14:50 07/19/16 15:05 Levofloxacin 500mg/100ml D5w IV 07/19/16 15:49 100 mls/hr STAT ONE Administration Sodium Chloride Confirm 07/19/16 15:02 Sodium Chloride 0.9% 1000 Ml Administered 07/19/16 15:03 Dose 1,000 mls @ ud .ROUTE .STK-MED ONE Levofloxacin/Dextrose Confirm 07/19/16 15:03 Levofloxacin 500mg/100ml D5w Administered 07/19/16 15:04 Dose 100 mls @ ud IV .STK-MED ONE Methylprednisolone Sodium Succinate 125 mg 07/19/16 14:49 07/19/16 15:05 Solu-Medrol 125 Mg IV 07/19/16 14:50 125 mg STAT ONE Administration Methylprednisolone Sodium Succinate Confirm 07/19/16 15:02 Solu-Medrol 125 Mg Administered 07/19/16 15:03 Dose 125 mg .ROUTE .STK-MED ONE Sodium Chloride Confirm 07/19/16 14:59 Sodium Chloride 3 Ml Ud Nebules Administered 07/19/16 15:00 Dose 9 ml IH .STK-MED ONE Lab/Rad Data: Laboratory Result Diagrams 07/19/16 14:55 07/19/16 14:55 Laboratory Results 07/19/16 07/19/1617 Range/Units 14:55 14:55 14:50 WBC 6.1 (4.0-10.5) K/mm3 RBC 3.80 L (4.1-5.4) M/mm3 Hgb 10.3 L (12.0-16.0) gm/dl Hct 32.9 L (35-47) % MCV 86.6 (78-100) fl MCH 27.1 (26-32) pg MCHC 31.3 L (32-36) g/dl RDW 14.2 H (11.5-14.0) % Plt Count 247 (150-450) K/mm3 MPV 9.4 (6-9.5) fl Segmented Neutrophils 73 H (36.0-66.0) % Lymphocytes (Manual) 20 L (24-44) % Monocytes (Manual) 6 (0.0-12.0) % Eosinophils (Manual) 1 (0.00-3.0) % Differential Comment NORMAL Platelet Estimate NORMAL (NORMAL) Puncture Site LEFT RADIAL pCO2 36 (35-45) mmHg pO2 70 L (75-100) mmHg Base Excess 1.1 (-2.0-2.0) O2 Saturation 93.7 L (94-100) g/dF ABG pH 7.45 (7.35-7.45) ABG HCO3 25.0 (22-28) ABG O2 Sat (Measured) 96.6 (95-100) % Adam Test YES A-a Gradient 35 a/A Ratio 0.67 Hemoglobin 10.6 Carboxyhemoglobin 1.6 (0.0-6.9) % THgb Methemoglobin 1.4 (1.4-1.5) % Potassium 3.9 3.6 (3.5-5.1) Temperature 37.0 C POC O2 Flow Rate 21 % Sodium 142 (136-145) mEq/L Chloride 107 (98-107) mEq/L Carbon Dioxide 24.8 (21-32) mEq/L Anion Gap 14.2 (5-15) MEQ/L BUN 15 (9-20) mg/dL Creatinine 0.90 (0.55-1.30) mg/dl Estimated GFR > 60 ML/MIN Glucose 169 H (70-110) MG/DL Calcium 8.7 (8.5-10.1) mg/dL - Progress Progress: improved Air Movement: good Progress Note: 07/19/16 16:21 PATIENT GIVEN CONTINUOUS ALBUTEROL 10MG OVER 1 HOUR, SOLUMEDROL 125MG IV, LEVAQUIN 500MG IVPB Blood Culture(s) Obtained: No Antibiotics given: Yes Counseled pt/family regarding: lab results, diagnosis, need for follow-up, rad results - Departure Time of Disposition: 16:35 Departure Disposition: Home Clinical Impression: EXACERBATION COPD Condition: Stable Critical Care Time: No Additional Instructions: TAKE YOUR PREDNISONE DAILY FOR 5 DAYS. ANTIBIOTIC LEVAQUIN 500MG DAILY FOR 10 DAYS. CONTINUE AEROSOL TREATMENTS EVERY 4 HOURS NEEDED. TAKE OVER THE COUNTER COUGH SYRUP NEEDED. FOLLOWUP WITH YOUR FAMILY PHYSICIAN IN 1 WEEK. RETURN TO EMERGENCY FOR BREATHING DIFFICULTY, Prescriptions: Levofloxacin [Levaquin] 500 mg PO DAILY #10 tablet
[2016-07-19 14:54] LABS: A-aADO2 35; ALLEN TEST OK? YES; ARTERIAL BLD GAS O2 SATURATION 96.6 % (95-100); ARTERIAL BLOOD GAS BASE EXCESS 1.1 (-2.0-2.0); ARTERIAL BLOOD GAS FIO2 21 %; ARTERIAL BLOOD GAS PO2 70 mmHg (75-100); ARTERIAL BLOOD GAS pH 7.45 (7.35-7.45)
[2016-07-19] MEDS ORDERED: PROVENTIL Solution 2.5 MG/0.5 ML IH ONE ×2 (14:58→15:23)
[2016-07-19] MEDS ORDERED: Sodium Chloride 3 ML UD NEBULES IH ONE (14:59)
[2016-07-19] MEDS ORDERED: solu-MEDROL 125 MG ONE (15:02)
[2016-07-19] MEDS ORDERED: Sodium Chloride 0.9% 1000 ML 1,000 ML ONE (15:02)
[2016-07-19 15:05] LABS: Mean Cell Volume 86.6 fl (78-100); Mean Corpuscular Hemoglobin 27.1 pg (26-32); Mean Platelet Volume 9.4 fl (6-9.5); Platelet Count 247 K/mm3 (150-450); Red Cell Distribution Width 14.2 % (11.5-14.0); White Blood Count 6.1 K/mm3 (4.0-10.5)
[2016-07-19 15:25] LABS: ANION GAP 14.2 MEQ/L (5-15); BLOOD UREA NITROGEN 15 mg/dL (9-20); CHLORIDE 107 mEq/L (98-107); Carbon Dioxide 24.8 mEq/L (21-32); Glucose 169 MG/DL (70-110); Potassium 3.9 mEq/L (3.5-5.1); SODIUM 142 mEq/L (136-145)
--- NOTE | 2016-07-19 15:32 | XRAY ---
Indication: Cough and short of breath. Comparison: June 21 and July 12, 2016 PA/lateral chest continues to demonstrate normal heart, lungs, and bony thorax.
[2016-07-19 15:48] LABS: Eosinophil 1 % (0.00-3.0); Total Cells Counted 100
[2016-07-19 15:49] LABS: Platelet Estimate NORMAL (NORMAL)
[2016-07-19 16:10] VITALS: PULSE 108
[2016-07-19 16:32] VITALS: BP 108/77; O2SAT 98
== END 2016-07-19 16:31 | disposition home or self-care (01) ==
LOC: ED 14:21
DX: J44.1 Chronic obstructive pulmonary disease with (acute) exacerbation (principal); R05 Cough; E11.9 Type 2 diabetes mellitus without complications; E03.9 Hypothyroidism, unspecified; Z79.84 Long term (current) use of oral hypoglycemic drugs; Z79.899 Other long term (current) drug therapy
CPT/HCPCS: 36000; 36415; 36600; 71020; 80048; 82375; 82803; 85025; 94150; 94640; 96360; 96361; 96374; 99283; J1956; J2930

== ENCOUNTER 2016-08-16 17:00 | Emergency (ER) | payer OTHER ==
--- NOTE | 2016-08-16 17:49 | ERPHSYRPT ---
- History of Present Illness Time Seen by Provider: 08/16/16 17:40 Source: patient Exam Limitations: clinical condition Patient Subjective Stated Complaint: SOB x 3 days, chest pain with deep breath, nausea Triage Nursing Assessment: skin warm and dry, no resp distress noted, no cough, pt c/o mid chest pain with deep inspiration and nausea, no emesis noted, resp unlabored at 20/min. LCTA bilat, monitor shows NSR w freq PVCs (see strip). saline lock noted to right ac per EMS. Physician History: PATIENT WITH HISTORY OF COPD COMPLAINS OF EXERTIONAL DYSPNEA, PRODUCTIVE COUGH FOR 4 DAYS. DENIES FEVER OR CHILLS. HAS ANTERIOR CHEST AND POSTERIOR CHEST PAINS UPON COUGHING AND DEEP INSPIRATION. Timing/Duration: day(s) Activities at Onset: activity Severity of Dyspnea-Max: moderate Severity of Dyspnea-Current: moderate Possible Cause: occasional episodes Modifying Factors: Improves With: coughing, deep breath, exertion Associated Symptoms: cough, wheezing, painful breathing International travel in last 2 weeks: No Allergies/Adverse Reactions: Sulfa (Sulfonamide Antibiotics) [Sulfa(Sulfonamide Antibiotics)] Allergy ( Verified 07/19/16 14:31) Rash topiramate [From Topamax] Allergy (Verified 07/19/16 14:31) confusion aspirin Adverse Reaction (Severe, Verified 07/19/16 14:31) advised not to take it d/t it will cause her to bleed Home Medications: Albuterol 8 gm Mdi Hfa [Ventolin Hfa MDI] 2 puff IH Q4HPRN PRN 07/14/14 [ History] Metformin HCl 500 mg [Glucophage 500 MG] 500 mg PO DAILY PRN 07/14/14 [ History] Citalopram Hydrobromide 20 mg* [ceLEXa 20 MG] 20 mg PO DAILY 07/24/14 [ History] Lorazepam 0.5 mg [Ativan 0.5 MG] 0.5 mg PO BID 07/02/15 [History] Montelukast Sodium [Singulair] 10 mg PO DAILY 07/02/15 [History] Sitagliptin Phosphate [Januvia] 100 mg PO DAILY 07/08/15 [History] Famotidine 40 mg PO BID 03/09/16 [History] Metformin HCl 500 mg [Glucophage 500 MG] 250 mg PO HSPRN PRN 03/09/16 [ History] Diphenhydramine HCl 25 mg [Benadryl 25 mg Capsule] 25 mg PO QHS 05/28/16 [ History] Albuterol 2.5 mg/3 ml Neb [Proventil 2.5 mg/3 ml Neb] 2.5 mg IH Q4HPRN PRN 06/21/16 [History] Folic Acid 0.8 mg PO DAILY 08/16/16 [History] Hydroxyzine HCl 25 mg [Atarax 25 mg] 25 mg PO QID 08/16/16 [History] Naproxen 375 mg [Naprosyn 375 mg] 375 mg PO DAILY 08/16/16 [History] Verapamil HCl [Verapamil ER Pm] 200 mg PO HS 08/16/16 [History] Hx Tetanus, Diphtheria Vaccination/Date Given: Yes Hx Influenza Vaccination/Date Given: Yes Hx Pneumococcal Vaccination/Date Given: No - Review of Systems Constitutional: No Fever, No Chills Eyes: No Symptoms Ears, Nose, & Throat: No Symptoms Respiratory: Cough, Dyspnea on Exertion (MONZON), No Dyspnea Cardiac: No Chest Pain, No Edema, No Syncope Abdominal/Gastrointestinal: No Symptoms, No Abdominal Pain, No Nausea, No Vomiting, No Diarrhea Genitourinary Symptoms: No Symptoms, No Dysuria Musculoskeletal: No Symptoms, No Back Pain, No Neck Pain Skin: No Symptoms, No Rash Neurological: No Dizziness, No Focal Weakness, No Sensory Changes Psychological: No Symptoms Endocrine: No Symptoms All Other Systems: Reviewed and Negative - Past Medical History Pertinent Past Medical History: Yes Neurological History: Migraines, Other ENT History: No Pertinent History Cardiac History: High Cholesterol, Hypertension, Other Respiratory History: Asthma, Bronchitis, COPD, Sleep Apnea Endocrine Medical History: Diabetes Type II, Hypothyroidism Musculoskeletal History: Other GI Medical History: No Pertinent History History: No Pertinent History Psycho-Social History: Anxiety, Depression Female Reproductive Disorders: Menstrual Problems, Other Other Medical History: ANEMIA. ITP - Past Surgical History Past Surgical History: No Neuro Surgical History: No Pertinent History Cardiac: No Pertinent History Respiratory: No Pertinent History Gastrointestinal: No Pertinent History Genitourinary: No Pertinent History Musculoskeletal: No Pertinent History Female Surgical History: No Pertinent History - Social History Smoking Status: Never smoker Exposure to second hand smoke: Yes Alcohol Use: None Drug Use: none Patient Lives Alone: No Significant Family History: no pertinent family hx - Female History Hx Last Menstrual Period: 1 month ago Hx Now: No - Nursing Vital Signs Nursing Vital Signs: Initial Vital Signs Temperature 98.8 F Temperature Source Oral Pulse Rate 85 Respiratory Rate 20 Blood Pressure [] 120/64 Pain Intensity 10 - Physical Exam General Appearance: no apparent distress, alert Eye Exam: PERRL/EOMI Neck Exam: normal inspection, supple Respiratory Exam: normal breath sounds, chest tenderness (THERE IS PARASTERNAL TENDERNESS T3 TO T5, AND LEFT POSTERIOR CHEST WALL T4 TO T8 TENDERNESS), lungs clear, other (NO WHEEZES OR RHONCHI NOTED) Cardiovascular/Chest Exam: normal heart sounds, regular rate/rhythm Abdominal/Gastrointestinal Exam: soft, No tenderness, No distention, No mass Extremity Exam: non-tender, normal range of motion, normal inspection, no calf tenderness, no pedal edema Peripheral Pulses Exam: carotid (R): 2+, carotid (L): 2+, femoral (R): 2+, femoral (L): 2+, dorsalis-pedis (R): 2+ Neurologic Exam: alert, 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, cooperative, terrapin fisher II-XII nml as tested, sensation nml, No motor deficits Skin Exam: normal color, warm, No dry SpO2 Interpretation: normal SpO2: 96 Oxygen Delivery: Room Air - Course EKG Interpreted by Me: RATE, Sinus Tach, NORMAL AXIS (OCCASIONAL PVC) - CT Exams Chest CT Interpretation: Discussed w/radiologist (NO CENTRAL PULMONARY EMBOLI, SPLENOMEGALY) Ordered Tests: Active Orders 24 hr Category Date Time Status House Registry Rn STAT Care 08/16/16 17:46 Active EKG-ER Only STAT Care 08/16/16 17:46 Active CHEST WITH CONTRAST [CT] Stat Exams 08/16/16 17:45 Taken BLOOD CULTURE Stat Lab 08/16/16 18:07 Received CBC W DIFF Stat Lab 08/16/16 18:11 Completed CMP Stat Lab 08/16/16 18:11 Completed HCG,QUALITATIVE URINE Stat Lab 08/16/16 18:21 Completed Manual Differential NC Stat Lab 08/16/16 18:11 Completed NT PRO BNP Stat Lab 08/16/16 18:11 Completed PROTIME WITH INR Stat Lab 08/16/16 18:11 Completed TROPONIN Stat Lab 08/16/16 18:11 Completed UA Stat Lab 08/16/16 18:21 Completed Peak Expiratory Flow Rate ONCE RT 08/16/16 17:46 Completed Medication Summary Generic Name Dose Route Start Last Admin Trade Name Freq PRN Reason Stop Dose Admin Sodium Chloride 1,000 mls @ 200 mls/hr 08/16/16 18:00 08/16/16 18:13 Sodium Chloride 0.9% 1000 Ml IV 09/15/16 17:59 200 mls/hr .Q5H CAITY Administration Levofloxacin 500 mg 08/16/16 20:32 Levofloxacin 250mg Tablet PO 08/16/16 20:33 STAT ONE Discontinued Medications Generic Name Dose Route Start Last Admin Trade Name Freq PRN Reason Stop Dose Admin Sodium Chloride Confirm 08/16/16 18:05 Sodium Chloride 0.9% 1000 Ml Administered 08/16/16 18:06 Dose 1,000 mls @ ud .ROUTE .STK-MED ONE Levofloxacin Confirm 08/16/16 20:25 Levofloxacin 500 Mg Tablet Administered 08/16/16 20:26 Dose 500 mg .ROUTE .STK-MED ONE Lab/Rad Data: Laboratory Result Diagrams 08/16/16 18:11 08/16/16 18:11 Laboratory Results 08/16/16 08/16/16 08/16/16 Range/Units 18:21 18:21 18:11 WBC (4.0-10.5) K/mm3 RBC (4.1-5.4) M/mm3 Hgb (12.0-16.0) gm/dl Hct (35-47) % MCV (78-100) fl MCH (26-32) pg MCHC (32-36) g/dl RDW (11.5-14.0) % Plt Count (150-450) K/mm3 MPV (6-9.5) fl Segmented Neutrophils (36.0-66.0) % Lymphocytes (Manual) (24-44) % Monocytes (Manual) (0.0-12.0) % Eosinophils (Manual) (0.00-3.0) % Differential Comment Platelet Estimate (NORMAL) Hypochromasia Anisocytosis INR 1.07 (0.8-3.0) Sodium (136-145) mEq/L Potassium (3.5-5.1) mEq/L Chloride (98-107) mEq/L Carbon Dioxide (21-32) mEq/L Anion Gap (5-15) MEQ/L BUN (9-20) mg/dL Creatinine (0.55-1.30) mg/dl Estimated GFR ML/MIN Glucose (70-110) MG/DL Calcium (8.5-10.1) mg/dL Total Bilirubin (0.2-1.0) mg/dL AST (15-37) U/L ALT (12-78) U/L Alkaline Phosphatase (46-116) U/L Troponin I (0.000-0.056) ng/ml NT-Pro-B Natriuret Pep (0-125) pg/ml Serum Total Protein (6.4-8.2) gm/dL Albumin (3.4-5.0) g/dL Ur Collection Type CLEAN CATCH Urine Color YELLOW (YELLOW) Urine Appearance CLEAR (CLEAR) Urine pH 5.5 (5-6) Ur Specific [place] 1.020 (1.005-1.025) Urine Protein NEGATIVE (Negative) Urine Glucose (UA) NEGATIVE (NEGATIVE) mg/dL Urine Ketones NEGATIVE (NEGATIVE) Urine Nitrite NEGATIVE (NEGATIVE) Urine Bilirubin NEGATIVE (NEGATIVE) Urine Urobilinogen 0.2 (0-1) mg/dL Urine WBC (Auto) NEGATIVE (NEGATIVE) Urine RBC (Auto) NEGATIVE (0-5) Chago/ul Urine HCG, Qual NEGATIVE (Negative) Specimen Received 08/16/16 1830 08/16/16 08/16/16 Range/Units 18:11 18:11 WBC 6.8 (4.0-10.5) K/mm3 RBC 3.83 L (4.1-5.4) M/mm3 Hgb 10.4 L (12.0-16.0) gm/dl Hct 32.7 L (35-47) % MCV 85.4 (78-100) fl MCH 27.1 (26-32) pg MCHC 31.8 L (32-36) g/dl RDW 14.5 H (11.5-14.0) % Plt Count 317 (150-450) K/mm3 MPV 9.3 (6-9.5) fl Segmented Neutrophils 57 (36.0-66.0) % Lymphocytes (Manual) 35 (24-44) % Monocytes (Manual) 5 (0.0-12.0) % Eosinophils (Manual) 3 (0.00-3.0) % Differential Comment ABNORMAL Platelet Estimate NORMAL (NORMAL) Hypochromasia 1+ Anisocytosis 1+ INR (0.8-3.0) Sodium 142 (136-145) mEq/L Potassium 3.6 (3.5-5.1) mEq/L Chloride 107 (98-107) mEq/L Carbon Dioxide 23.0 (21-32) mEq/L Anion Gap 16.0 H (5-15) MEQ/L BUN 19 (9-20) mg/dL Creatinine 0.87 (0.55-1.30) mg/dl Estimated GFR > 60 ML/MIN Glucose 138 H (70-110) MG/DL Calcium 8.6 (8.5-10.1) mg/dL Total Bilirubin 0.1 L (0.2-1.0) mg/dL AST 22 (15-37) U/L ALT 34 (12-78) U/L Alkaline Phosphatase 112 (46-116) U/L Troponin I < 0.017 (0.000-0.056) ng/ml NT-Pro-B Natriuret Pep 505 H (0-125) pg/ml Serum Total Protein 6.9 (6.4-8.2) gm/dL Albumin 3.5 (3.4-5.0) g/dL Ur Collection Type Urine Color (YELLOW) Urine Appearance (CLEAR) Urine pH (5-6) Ur Specific [place] (1.005-1.025) Urine Protein (Negative) Urine Glucose (UA) (NEGATIVE) mg/dL Urine Ketones (NEGATIVE) Urine Nitrite (NEGATIVE) Urine Bilirubin (NEGATIVE) Urine Urobilinogen (0-1) mg/dL Urine WBC (Auto) (NEGATIVE) Urine RBC (Auto) (0-5) Chago/ul Urine HCG, Qual (Negative) Specimen Received - Progress Progress Note: 08/16/16 20:25 PULSE OXIMETRY 98%, PEAK FLOW 350, REPEAT EXAM NO WHEEZES, CLEAR BREATH SOUNDS Blood Culture(s) Obtained: No Antibiotics given: Yes (PATIENT GIVEN LEVAQUIN 500MG ORALLY) Counseled pt/family regarding: lab results, diagnosis, need for follow-up, rad results - Departure Time of Disposition: 20:35 Departure Disposition: Home Clinical Impression: ACUTE BRONCHITIS Condition: Stable Critical Care Time: No Referrals: TIM MAGUIRE MD [Primary Care Provider] - Additional Instructions: ANTIBIOTIC CEFTIN 250MG TWICE DAILY FOR 7 DAYS. CONTINUE AEROSOL TREATMENTS NEEDED. CONSULT YOUR FAMILY PHYSICIAN FOR FOLLOWUP IN 1 WEEK. Prescriptions: Cefuroxime Axetil [Cefuroxime] 250 mg PO BID #14 tablet
[2016-08-16] MEDS ORDERED: Sodium Chloride 0.9% 1000 ML 1,000 ML IV SCH (18:00)
[2016-08-16] MEDS ORDERED: Sodium Chloride 0.9% 1000 ML 1,000 ML ONE (18:05)
[2016-08-16 18:18] LABS: Mean Cell Volume 85.4 fl (78-100); Mean Platelet Volume 9.3 fl (6-9.5); Platelet Count 317 K/mm3 (150-450); Red Blood Count 3.83 M/mm3 (4.1-5.4); Red Cell Distribution Width 14.5 % (11.5-14.0); White Blood Count 6.8 K/mm3 (4.0-10.5)
[2016-08-16 18:32] LABS: COMPLETE URINE MICROSCOPIC? NO; Collection Type CLEAN CATCH; Ph 5.5 (5-6)
[2016-08-16 18:34] LABS: Mean Corpuscular Hemoglobin 27.1 pg (26-32)
[2016-08-16 18:40] LABS: INR 1.07 (0.8-3.0)
[2016-08-16 18:58] LABS: Eosinophil 3 % (0.00-3.0); Total Cells Counted 100
[2016-08-16 19:00] LABS: ALBUMIN 3.5 g/dL (3.4-5.0); ALKALINE PHOSPHATASE 112 U/L (46-116); BILIRUBIN,TOTAL 0.1 mg/dL (0.2-1.0); BLOOD UREA NITROGEN 19 mg/dL (9-20); CHLORIDE 107 mEq/L (98-107); Glucose 138 MG/DL (70-110); Potassium 3.6 mEq/L (3.5-5.1); SGOT/AST 22 U/L (15-37); SGPT/ALT 34 U/L (12-78); SODIUM 142 mEq/L (136-145); Total Protein 6.9 gm/dL (6.4-8.2)
[2016-08-16 19:01] LABS: TROPONIN < 0.017 ng/ml (0.000-0.056)
[2016-08-16 19:10] LABS: Platelet Estimate NORMAL (NORMAL)
[2016-08-16 19:11] LABS: ANISOCYTOSIS 1+; Hypochromia 1+
[2016-08-16] MEDS ORDERED: Levofloxacin 500 MG Tablet ONE (20:25)
[2016-08-16 20:26] VITALS: O2SAT 96
[2016-08-16 20:32] VITALS: BP 120/64; PULSE 85
[2016-08-16] MEDS ORDERED: Levofloxacin 250MG Tablet PO ONE (20:32)
--- NOTE | 2016-08-17 08:38 | XRAY ---
Indication: Chest pain and coughing. Multiple contiguous axial images obtained through the chest using 80 cc Isovue 370 contrast and PE protocol. Comparison: None There is adequate opacification of the pulmonary arteries. However some respiration artifact limits evaluation of the lobar and distal branches. No filling defect or pulmonary embolus in the more central pulmonary arteries. Heart is enlarged. No pericardial effusion. Aorta is normal in course and caliber. No pathologic mediastinal/hilar lymphadenopathy. Examination of the lung parenchyma demonstrates fully inflated lungs. No pulmonary mass/nodule, infiltrate, consolidation, or effusion. Bony thorax intact. Limited upper abdomen demonstrates fatty liver and 13 cm splenomegaly. Impression: 1. Respiration artifact. No central pulmonary embolus. 2. Cardiomegaly. No acute cardiopulmonary abnormalities. 3. Incidental fatty liver and splenomegaly. CT DI 23.69
== END 2016-08-16 20:56 | disposition home or self-care (01) ==
LOC: ED 17:00
DX: J20.9 Acute bronchitis, unspecified (principal); R07.89 Other chest pain; R05 Cough; R11.0 Nausea; I10 Essential (primary) hypertension; E78.00 Pure hypercholesterolemia, unspecified; E11.9 Type 2 diabetes mellitus without complications; Z79.84 Long term (current) use of oral hypoglycemic drugs; Z79.4 Long term (current) use of insulin; Z79.899 Other long term (current) drug therapy
CPT/HCPCS: 36000; 36415; 71260; 80053; 81002; 83880; 84484; 84703; 85025; 85610; 87040; 93005; 93041; 94150; 96360; 96361; 99284

== ENCOUNTER 2016-09-15 18:49 | Observation (INO) | payer OTHER, SELFPAY ==
[2016-09-15] MEDS ORDERED: PROVENTIL 2.5 MG/3 ML NEB IH ONE ×2 (19:19→19:32)
[2016-09-15] MEDS ORDERED: Rocephin 1000 MG INJ IM ONE (19:21)
[2016-09-15] MEDS ORDERED: Rocephin 1000 MG INJ ONE (19:26)
--- NOTE | 2016-09-15 19:27 | ERPHSYRPT ---
- History of Present Illness Time Seen by Provider: 09/15/16 19:10 Source: patient Exam Limitations: no limitations Patient Subjective Stated Complaint: back pain for weeks Triage Nursing Assessment: back pain for weeks. saw dr maguire on 09/03 and states 'he keeps saying my back hurts from my lungs and cough' and it isnt getting [place] better. denies injury. states pain starts in lower back and goes up to neck--pain worse with movement. productive cough for weeks. no fever at home. normal bm. denies pain with uriantion. multiple complaints with every question asked of pt. skin warm and dry Physician History: FOR THE PAST 19 DAYS PT HAS HAD COUGH PRODUCTIVE OF YELLOW-GREEN PHLEGM; FOR THE PAST 12 DAYS CONSTANT ANTERIOR CHEST PAIN AND BACK PAIN; FOR 10 DAYS STARTING 12 DAYS AGO A SORE THROAT. PT ALSO C/O ONGOING DYSPNEA ON EXERTION AND ASTHMA. PT DENIES VOMITING, DIARRHEA, FEVER. Allergies/Adverse Reactions: Sulfa (Sulfonamide Antibiotics) [Sulfa(Sulfonamide Antibiotics)] Allergy ( Verified 09/15/16 19:07) Rash topiramate [From Topamax] Allergy (Verified 09/15/16 19:07) confusion aspirin Adverse Reaction (Severe, Verified 09/15/16 19:07) advised not to take it d/t it will cause her to bleed Home Medications: Albuterol 8 gm Mdi Hfa [Ventolin Hfa MDI] 2 puff IH Q4HPRN PRN 07/14/14 [ History] Metformin HCl 500 mg [Glucophage 500 MG] 500 mg PO DAILY PRN 07/14/14 [ History] Citalopram Hydrobromide 20 mg* [ceLEXa 20 MG] 20 mg PO DAILY 07/24/14 [ History] Lorazepam 0.5 mg [Ativan 0.5 MG] 0.5 mg PO BID 07/02/15 [History] Montelukast Sodium [Singulair] 10 mg PO DAILY 07/02/15 [History] Sitagliptin Phosphate [Januvia] 100 mg PO DAILY 07/08/15 [History] Famotidine 40 mg PO BID 03/09/16 [History] Metformin HCl 500 mg [Glucophage 500 MG] 250 mg PO HSPRN PRN 03/09/16 [ History] Diphenhydramine HCl 25 mg [Benadryl 25 mg Capsule] 25 mg PO QHS 05/28/16 [ History] Albuterol 2.5 mg/3 ml Neb [Proventil 2.5 mg/3 ml Neb] 2.5 mg IH Q4HPRN PRN 06/21/16 [History] Folic Acid 0.8 mg PO DAILY 08/16/16 [History] Hydroxyzine HCl 25 mg [Atarax 25 mg] 25 mg PO QID 08/16/16 [History] Naproxen 375 mg [Naprosyn 375 mg] 375 mg PO DAILY 08/16/16 [History] Verapamil HCl [Verapamil ER Pm] 200 mg PO HS 08/16/16 [History] Hx Tetanus, Diphtheria Vaccination/Date Given: Yes Hx Influenza Vaccination/Date Given: Yes Hx Pneumococcal Vaccination/Date Given: Yes Immunizations Up to Date: Yes - Review of Systems Constitutional: No Fever Ears, Nose, & Throat: Throat Pain Respiratory: Cough, Dyspnea on Exertion (MONZON) Cardiac: Chest Pain Abdominal/Gastrointestinal: No Vomiting, No Diarrhea Musculoskeletal: Back Pain All Other Systems: Reviewed and Negative - Past Medical History Pertinent Past Medical History: Yes Neurological History: Migraines, Other ENT History: No Pertinent History Cardiac History: High Cholesterol, Hypertension, Other Respiratory History: Asthma, Bronchitis, COPD, Sleep Apnea Endocrine Medical History: Diabetes Type II, Hypothyroidism Musculoskeletal History: Other GI Medical History: No Pertinent History History: No Pertinent History Psycho-Social History: Anxiety, Depression Female Reproductive Disorders: Menstrual Problems, Other Other Medical History: ANEMIA. ITP - Past Surgical History Past Surgical History: No Neuro Surgical History: No Pertinent History Cardiac: No Pertinent History Respiratory: No Pertinent History Gastrointestinal: No Pertinent History Genitourinary: No Pertinent History Musculoskeletal: No Pertinent History Female Surgical History: No Pertinent History - Social History Smoking Status: Never smoker Exposure to second hand smoke: Yes Alcohol Use: None Drug Use: none Patient Lives Alone: No Significant Family History: no pertinent family hx - Female History Hx Last Menstrual Period: current Hx Now: No - Nursing Vital Signs Nursing Vital Signs: Initial Vital Signs Temperature 98.3 F Temperature Source Oral Pulse Rate 90 Respiratory Rate 18 Blood Pressure [] 134/68 Pain Intensity 8 - Physical Exam General Appearance: alert, anxiety Eye Exam: PERRL/EOMI Ears, Nose, Throat Exam: TMs normal, dry mucous membranes, pharyngeal erythema Neck Exam: normal inspection Respiratory Exam: wheezing (MINIMAL EXPIRATORY WHEEZING OVER POSTERIOR BASES.) Cardiovascular Exam: normal heart sounds Gastrointestinal/Abdomen Exam: soft, normal bowel sounds Back Exam: normal range of motion, other (MILD PARAVERTEBRAL MUSCLE TENDERNESS OVER THE ENTIRE SPINE WITHOUT BRUISING OR ERYTHEMA.) Extremity Exam: No pedal edema Neurologic Exam: alert, cooperative, No normal mood/affect (ANXIOUS) Skin Exam: warm, dry SpO2 Interpretation: normal SpO2: 98 Oxygen Delivery: Room Air - Course Nursing assessment & vital signs reviewed: Yes EKG Interpreted by Me: RATE (80), Sinus Rhythm, NORMAL AXIS, NORMAL INTERVALS - Radiology Exams Chest X-ray Interpretation: Interpreted by me, No Pneumonia Ordered Tests: Active Orders 24 hr Category Date Time Status Legal Transcriptionist STAT Care 09/15/16 19:19 Active Clean Catch Urine Specimen STAT Care 09/15/16 19:19 Active EKG-ER Only STAT Care 09/15/16 19:19 Active CHEST 1 VIEW (PORTABLE) Stat Exams 09/15/16 19:20 Taken AMYLASE Stat Lab 09/15/16 19:38 Completed ARTERIAL BLOOD GASES Urgent Lab 09/15/16 19:40 Completed CBC W DIFF Stat Lab 09/15/16 19:38 Completed CMP Stat Lab 09/15/16 19:38 Completed LIPASE Stat Lab 09/15/16 19:38 Completed MAGNESIUM Stat Lab 09/15/16 19:38 Completed TROPONIN Stat Lab 09/15/16 19:38 Completed UA Stat Lab 09/15/16 19:20 Completed Respiratory Nebulizer STAT RT 09/15/16 19:21 Completed Medication Summary Discontinued Medications Generic Name Dose Route Start Last Admin Trade Name Freq PRN Reason Stop Dose Admin Albuterol Sulfate 2.5 mg 09/15/16 19:19 09/15/16 19:34 Proventil 2.5 Mg/3 Ml Neb IH 09/15/16 19:20 2.5 mg STAT ONE Administration Albuterol Sulfate Confirm 09/15/16 19:32 Proventil 2.5 Mg/3 Ml Neb Administered 09/15/16 19:33 Dose 2.5 mg IH .STK-MED ONE Ceftriaxone Sodium 1,000 mg 09/15/16 19:21 09/15/16 19:31 Rocephin 1000 Mg Inj IM 09/15/16 19:22 1,000 mg STAT ONE Administration Ceftriaxone Sodium Confirm 09/15/16 19:26 Rocephin 1000 Mg Inj Administered 09/15/16 19:27 Dose 1,000 mg .ROUTE .STK-MED ONE Hydromorphone HCl 1 mg 09/15/16 21:43 09/15/16 21:49 Hydromorphone 1 Mg/Ml Ampule IV 09/15/16 21:44 1 mg STAT ONE Administration Hydromorphone HCl Confirm 09/15/16 21:46 Hydromorphone 1 Mg/Ml Ampule Administered 09/15/16 21:47 Dose 1 mg .ROUTE .STK-MED ONE Sodium Chloride 1,000 mls @ 999 mls/hr 09/15/16 20:30 09/15/16 21:08 Sodium Chloride 0.9% 1000 Ml IV 09/15/16 21:30 999 mls/hr .Q1H1M STA Administration Sodium Chloride Confirm 09/15/16 21:07 Sodium Chloride 0.9% 1000 Ml Administered 09/15/16 21:08 Dose 1,000 mls @ ud .ROUTE .STK-MED ONE Lidocaine HCl Confirm 09/15/16 20:00 Xylocaine 1% Hcl 20 Ml Mdv Administered 09/15/16 20:01 Dose 3 ml .ROUTE .STK-MED ONE Nitroglycerin Confirm 09/15/16 21:07 Nitrostat 0.4 Mg (Ed) Administered 09/15/16 21:08 Dose 0.4 mg SL .STK-MED ONE Nitroglycerin 0.4 mg 09/15/16 21:11 09/15/16 21:16 Nitrostat 0.4 Mg (Ed) SL 09/15/16 21:12 0.4 mg STAT ONE Administration Nitroglycerin Confirm 09/15/16 21:15 Nitrostat 0.4 Mg (Ed) Administered 09/15/16 21:16 Dose 0.4 mg SL .STK-MED ONE Promethazine HCl 12.5 mg 09/15/16 21:43 09/15/16 21:49 Phenergan 25 Mg Inj IV 09/15/16 21:44 12.5 mg STAT ONE Administration Promethazine HCl Confirm 09/15/16 21:46 Phenergan 25 Mg Inj Administered 09/15/16 21:47 Dose 25 mg .ROUTE .STK-MED ONE Lab/Rad Data: Laboratory Result Diagrams 09/15/16 19:38 09/15/16 19:38 Laboratory Results 09/15/16 09/15/16 09/15/16 Range/Units 19:40 19:38 19:38 WBC (4.0-10.5) K/mm3 RBC (4.1-5.4) M/mm3 Hgb (12.0-16.0) gm/dl Hct (35-47) % MCV (78-100) fl MCH (26-32) pg MCHC (32-36) g/dl RDW (11.5-14.0) % Plt Count (150-450) K/mm3 MPV (6-9.5) fl Gran % (36.0-66.0) % Lymphocytes % (24.0-44.0) % Monocytes % (0.0-12.0) % Eosinophils % (0.00-5.0) % Basophils % (0.0-0.4) % Basophils # (0-0.4) Puncture Site LEFT RADIAL pCO2 41 (35-45) mmHg pO2 74 L (75-100) mmHg Base Excess 4.1 H (-2.0-2.0) O2 Saturation 94.8 (94-100) g/dF ABG pH 7.45 (7.35-7.45) ABG HCO3 28.5 H (22-28) ABG O2 Sat (Measured) 97.3 (95-100) % Adam Test YES A-a Gradient 24 a/A Ratio 0.76 Hemoglobin 10.5 Carboxyhemoglobin 1.3 (0.0-6.9) % THgb Methemoglobin 1.2 L (1.4-1.5) % Temperature 37.0 C POC O2 Flow Rate 21 % Sodium 143 (136-145) mEq/L Potassium 4.1 4.0 (3.5-5.1) mEq/L Chloride 105 (98-107) mEq/L Carbon Dioxide 28.3 (21-32) mEq/L Anion Gap 13.2 (5-15) MEQ/L BUN 27 H (9-20) mg/dL Creatinine 0.97 (0.55-1.30) mg/dl Estimated GFR > 60 ML/MIN Glucose 111 H (70-110) MG/DL Calcium 8.9 (8.5-10.1) mg/dL Magnesium 1.9 (1.8-2.4) mg/dL Total Bilirubin 0.2 (0.2-1.0) mg/dL AST 25 (15-37) U/L ALT 30 (12-78) U/L Alkaline Phosphatase 110 (46-116) U/L Troponin I 0.110 H* (0.000-0.056) ng/ml Serum Total Protein 7.1 (6.4-8.2) gm/dL Albumin 3.7 (3.4-5.0) g/dL Amylase 45 (25-115) U/L Lipase 102 (73-393) U/L Ur Collection Type Urine Color (YELLOW) Urine Appearance (CLEAR) Urine pH (5-6) Ur Specific [place] (1.005-1.025) Urine Protein (Negative) Urine Glucose (UA) (NEGATIVE) mg/dL Urine Ketones (NEGATIVE) Urine Nitrite (NEGATIVE) Urine Bilirubin (NEGATIVE) Urine Urobilinogen (0-1) mg/dL Urine WBC (Auto) (NEGATIVE) Urine RBC (Auto) (0-5) Chago/ul Specimen Received 09/15/16 09/15/16 Range/Units 19:38 19:20 WBC 7.1 (4.0-10.5) K/mm3 RBC 3.83 L (4.1-5.4) M/mm3 Hgb 10.4 L (12.0-16.0) gm/dl Hct 32.8 L (35-47) % MCV 85.6 (78-100) fl MCH 27.1 (26-32) pg MCHC 31.7 L (32-36) g/dl RDW 14.2 H (11.5-14.0) % Plt Count 287 (150-450) K/mm3 MPV 9.0 (6-9.5) fl Gran % 66.7 H (36.0-66.0) % Lymphocytes % 19.2 L (24.0-44.0) % Monocytes % 7.1 (0.0-12.0) % Eosinophils % 6.4 H (0.00-5.0) % Basophils % 0.6 (0.0-0.4) % Basophils # 0.04 (0-0.4) Puncture Site pCO2 (35-45) mmHg pO2 (75-100) mmHg Base Excess (-2.0-2.0) O2 Saturation (94-100) g/dF ABG pH (7.35-7.45) ABG HCO3 (22-28) ABG O2 Sat (Measured) (95-100) % Adam Test A-a Gradient a/A Ratio Hemoglobin Carboxyhemoglobin (0.0-6.9) % THgb Methemoglobin (1.4-1.5) % Temperature C POC O2 Flow Rate % Sodium (136-145) mEq/L Potassium (3.5-5.1) mEq/L Chloride (98-107) mEq/L Carbon Dioxide (21-32) mEq/L Anion Gap (5-15) MEQ/L BUN (9-20) mg/dL Creatinine (0.55-1.30) mg/dl Estimated GFR ML/MIN Glucose (70-110) MG/DL Calcium (8.5-10.1) mg/dL Magnesium (1.8-2.4) mg/dL Total Bilirubin (0.2-1.0) mg/dL AST (15-37) U/L ALT (12-78) U/L Alkaline Phosphatase (46-116) U/L Troponin I (0.000-0.056) ng/ml Serum Total Protein (6.4-8.2) gm/dL Albumin (3.4-5.0) g/dL Amylase (25-115) U/L Lipase (73-393) U/L Ur Collection Type CCMS Urine Color YELLOW (YELLOW) Urine Appearance CLEAR (CLEAR) Urine pH 5.5 (5-6) Ur Specific [place] 1.025 (1.005-1.025) Urine Protein NEGATIVE (Negative) Urine Glucose (UA) NEGATIVE (NEGATIVE) mg/dL Urine Ketones NEGATIVE (NEGATIVE) Urine Nitrite NEGATIVE (NEGATIVE) Urine Bilirubin NEGATIVE (NEGATIVE) Urine Urobilinogen 0.2 (0-1) mg/dL Urine WBC (Auto) NEGATIVE (NEGATIVE) Urine RBC (Auto) NEGATIVE (0-5) Chago/ul Specimen Received [id number] - Progress Discussed with : Aaron (([id number] - WILL SEE PT TOMORROW AT [facility] ), [place] ( OBS - [id number]) - Departure Time of Disposition: 21:50 Departure Disposition: Observation Clinical Impression: BRONCHITIS, PHARYNGITIS, BACK PAIN, CHEST PAIN, ELEVATED TROPONIN, MILD DEHYDRATION, MONZON, ANEMIA, HTN, COPD, DM, HYPOTHYROIDISM, HX ITP, ANXIETY, DEPRESSION Condition: Stable Critical Care Time: No Referrals: TIM MAGUIRE MD [Primary Care Provider] -
[2016-09-15 19:32] LABS: COMPLETE URINE MICROSCOPIC? NO; Collection Type CCMS; Ph 5.5 (5-6)
[2016-09-15 19:42] LABS: BASOPHIL % 0.6 % (0.0-0.4); Eosinophil % 6.4 % (0.00-5.0); Granulocytes % 66.7 % (36.0-66.0); Lymphocytes % 19.2 % (24.0-44.0); Mean Cell Volume 85.6 fl (78-100); Mean Corpuscular Hemoglobin 27.1 pg (26-32); Monocytes % 7.1 % (0.0-12.0); Platelet Count 287 K/mm3 (150-450); Red Blood Count 3.83 M/mm3 (4.1-5.4); Red Cell Distribution Width 14.2 % (11.5-14.0); White Blood Count 7.1 K/mm3 (4.0-10.5)
[2016-09-15 19:46] LABS: A-aADO2 24; ALLEN TEST OK? YES; ARTERIAL BLD GAS O2 SATURATION 97.3 % (95-100); ARTERIAL BLOOD GAS BASE EXCESS 4.1 (-2.0-2.0); ARTERIAL BLOOD GAS FIO2 21 %; ARTERIAL BLOOD GAS PO2 74 mmHg (75-100); ARTERIAL BLOOD GAS pH 7.45 (7.35-7.45)
[2016-09-15] MEDS ORDERED: XYLOCAINE 1% HCL 20 ML MDV ONE (20:00)
[2016-09-15 20:08] LABS: LIPASE 102 U/L (73-393)
[2016-09-15 20:26] LABS: ALBUMIN 3.7 g/dL (3.4-5.0); ALKALINE PHOSPHATASE 110 U/L (46-116); ANION GAP 13.2 MEQ/L (5-15); BILIRUBIN,TOTAL 0.2 mg/dL (0.2-1.0); BLOOD UREA NITROGEN 27 mg/dL (9-20); CHLORIDE 105 mEq/L (98-107); Carbon Dioxide 28.3 mEq/L (21-32); Glucose 111 MG/DL (70-110); MAGNESIUM 1.9 mg/dL (1.8-2.4); SGOT/AST 25 U/L (15-37); SGPT/ALT 30 U/L (12-78); SODIUM 143 mEq/L (136-145); Total Protein 7.1 gm/dL (6.4-8.2)
[2016-09-15] MEDS ORDERED: Sodium Chloride 0.9% 1000 ML 1,000 ML IV STA (20:30)
[2016-09-15] MEDS ORDERED: Sodium Chloride 0.9% 1000 ML 1,000 ML ONE (21:07)
[2016-09-15] MEDS ORDERED: Nitrostat 0.4 MG (ED) SL ONE ×3 (21:07→21:15)
[2016-09-15] MEDS ORDERED: Hydromorphone 1 mg/ml Ampule IV ONE (21:43)
[2016-09-15] MEDS ORDERED: Phenergan 25 MG INJ IV ONE (21:43)
[2016-09-15] MEDS ORDERED: Hydromorphone 1 mg/ml Ampule ONE (21:46)
[2016-09-15] MEDS ORDERED: Phenergan 25 MG INJ ONE (21:46)
[2016-09-15] MEDS ORDERED: TYLENOL 325 MG PO PRN (22:16)
[2016-09-15] MEDS ORDERED: PROVENTIL 2.5 MG/3 ML NEB IH PRN (22:16)
[2016-09-15] MEDS ORDERED: NovoLOG Insulin SQ PRN (22:16)
[2016-09-15] MEDS ORDERED: Phenergan 25 MG INJ IV PRN (22:16)
[2016-09-15] MEDS ORDERED: DUONEB 0.5-3 MG/3 ml Neb IH ONE (22:33)
[2016-09-15] MEDS ORDERED: DUONEB 0.5-3 MG/3 ml Neb IH SCH (23:00)
[2016-09-15] MEDS ORDERED: Naprosyn 500 MG ONE (23:07)
[2016-09-15] MEDS: Ativan 0.5 MG PO SCH (23:13)
[2016-09-15] MEDS: ceLEXa 20 MG PO SCH (23:14)
[2016-09-15] MEDS: NAPROSYN 375 MG PO SCH (23:17)
[2016-09-15] MEDS: Pepcid 20 MG PO SCH (23:17)
[2016-09-15] MEDS ORDERED: BENADRYL 25 MG CAPSULE PO SCH (23:30)
[2016-09-16] MEDS: DILAUDID 2 MG INJECTION IV PRN ×5 (01:56→20:21)
[2016-09-16 06:03] LABS: BASOPHIL % 0.5 % (0.0-0.4); Eosinophil % 7.9 % (0.00-5.0); Lymphocytes % 31.6 % (24.0-44.0); Mean Cell Volume 86.7 fl (78-100); Mean Corpuscular Hemoglobin 27.3 pg (26-32); Mean Platelet Volume 9.4 fl (6-9.5); Platelet Count 304 K/mm3 (150-450); Red Blood Count 3.84 M/mm3 (4.1-5.4); Red Cell Distribution Width 14.5 % (11.5-14.0); White Blood Count 7.6 K/mm3 (4.0-10.5)
[2016-09-16] MEDS: DUONEB 0.5-3 MG/3 ml Neb IH SCH ×3 (06:32→19:12)
[2016-09-16 06:58] LABS: ALBUMIN 3.7 g/dL (3.4-5.0); ALKALINE PHOSPHATASE 97 U/L (46-116); ANION GAP 14.6 MEQ/L (5-15); BILIRUBIN,TOTAL 0.3 mg/dL (0.2-1.0); BLOOD UREA NITROGEN 23 mg/dL (9-20); CHLORIDE 106 mEq/L (98-107); Carbon Dioxide 27.5 mEq/L (21-32); Glucose 90 MG/DL (70-110); Potassium 3.8 mEq/L (3.5-5.1); SGOT/AST 21 U/L (15-37); SGPT/ALT 41 U/L (12-78); SODIUM 144 mEq/L (136-145); Total Protein 7.2 gm/dL (6.4-8.2)
[2016-09-16 07:03] LABS: TROPONIN 0.153 ng/ml (0.000-0.056)
[2016-09-16] MEDS ORDERED: Glucophage 500 MG PO PRN ×2 (07:21)
[2016-09-16] MEDS: Sodium Chloride 0.9% 1000 ML 1,000 ML IV SCH ×5 (07:56→22:12)
[2016-09-16] MEDS ORDERED: MEDICATION INTERVENTION MC SCH (08:00)
--- NOTE | 2016-09-16 08:49 | XRAY ---
Indication: Cough, congestion, and chest pain. Comparison: July 19, 2016. Portable chest again demonstrates normal heart, lungs, and bony thorax.
[2016-09-16] MEDS ORDERED: Imitrex 6 MG/0.5 ML SQ PRN (09:25)
[2016-09-16] MEDS: Singulair 10 MG PO SCH (09:29)
[2016-09-16] MEDS: Januvia 50 MG PO SCH (09:29)
[2016-09-16] MEDS: LASIX 20 MG PO SCH (09:29)
[2016-09-16] MEDS: ROCEPHIN 1 Gm-D5w 50 ml Bag** 50 ML IV SCH (09:29)
[2016-09-16] MEDS: Ativan 0.5 MG PO SCH ×2 (09:29→23:01)
[2016-09-16] MEDS: BENADRYL 25 MG CAPSULE PO PRN ×2 (09:29→23:13)
[2016-09-16] MEDS: Pepcid 20 MG PO SCH ×2 (09:30→23:03)
[2016-09-16] MEDS: FOLATE 1 MG PO SCH (09:30)
[2016-09-16] MEDS: Glucophage 500 MG PO SCH (09:33)
[2016-09-16] MEDS: NAPROSYN 375 MG PO SCH (09:34)
[2016-09-16] MEDS ORDERED: NON-FORMULARY ITEM (Sumatriptan Succinate [Imitrex 50 Mg] 50 MG) PO SCH (10:00)
[2016-09-16] MEDS ORDERED: NON-FORMULARY ITEM (Folic Acid [Folic Acid] 0.8 MG) PO SCH (10:00)
[2016-09-16] MEDS: Nitrostat 0.4 MG Tablet SL PRN ×2 (11:09→11:24)
--- NOTE | 2016-09-16 11:47 | PCM.HP ---
History of Present Illness - Chief Complaint Chief Complaint: Shortness of Breath for weeks, c/o back pain for 2-3 weeks History of Present Illness: is a 36 year old female. FOR THE PAST 19 DAYS PT HAS HAD COUGH PRODUCTIVE OF YELLOW-GREEN PHLEGM; FOR THE PAST 12 DAYS CONSTANT ANTERIOR CHEST PAIN AND BACK PAIN; FOR 10 DAYS STARTING 12 DAYS AGO A SORE THROAT. PT ALSO C/ O ONGOING DYSPNEA ON EXERTION AND ASTHMA. PT DENIES VOMITING, DIARRHEA, FEVER - Review of Systems Constitutional: No Fever, No Chills Eyes: No Symptoms Ears, Nose, & Throat: No Symptoms Respiratory: Cough, Short Of Breath Cardiac: Chest Pain, No Edema, No Syncope Abdominal/Gastrointestinal: No Abdominal Pain, No Nausea, No Vomiting, No Diarrhea Genitourinary Symptoms: No Dysuria Musculoskeletal: Back Pain, No Neck Pain Skin: No Rash Neurological: No Dizziness, No Focal Weakness, No Sensory Changes Psychological: No Symptoms Endocrine: No Symptoms Hematologic/Lymphatic: No Symptoms Immunological/Allergic: No Symptoms Medications & Allergies Home Medications: Home Medication List Metformin HCl 500 mg [Glucophage 500 MG] 500 mg PO DAILY 07/14/14 [ History Confirmed 09/15/16] Citalopram Hydrobromide 20 mg* [ceLEXa 20 MG] 20 mg PO DAILY 07/24/14 [ History Confirmed 09/15/16] Lorazepam 0.5 mg [Ativan 0.5 MG] 0.5 mg PO BID 07/02/15 [History Confirmed 09/15/16] Montelukast Sodium [Singulair] 10 mg PO DAILY 07/02/15 [History Confirmed ] Sitagliptin Phosphate [Januvia] 100 mg PO DAILY 07/08/15 [History Confirmed ] Famotidine 40 mg PO BID 03/09/16 [History Confirmed 09/15/16] Metformin HCl 500 mg [Glucophage 500 MG] 250 mg PO HS 03/09/16 [History Confirmed 09/16/16] Diphenhydramine HCl 25 mg [Benadryl 25 mg Capsule] 25 mg PO QHS 05/28/16 [ History Confirmed 09/15/16] Folic Acid 0.8 mg PO DAILY 08/16/16 [History Confirmed 09/15/16] Naproxen 375 mg [Naprosyn 375 mg] 375 mg PO BID 08/16/16 [History Confirmed 09/15/16] Verapamil HCl [Verapamil ER Pm] 200 mg PO HS 08/16/16 [History Confirmed ] Furosemide [Lasix] 20 mg PO DAILY 09/15/16 [History Confirmed 09/15/16] Sumatriptan Succinate [Imitrex 50 mg] 50 mg PO DAILY PRN PRN 09/15/16 [History Confirmed 09/16/16] Allergies/Adverse Reactions: Allergies Allergy/AdvReac Type Severity Reaction Status Date / Time Sulfa (Sulfonamide Allergy Rash Verified 09/15/16 19:07 Antibiotics) [Sulfa(Sulfonamide Antibiotics)] topiramate [From Topamax] Allergy confusion Verified 09/15/16 19:07 aspirin AdvReac Severe Verified 09/15/16 19:07 - Past Medical History Past Medical History: Yes Neurological History: Migraines, Other ENT History: No Pertinent History Cardiac History: High Cholesterol, Hypertension, Other Respiratory History: Asthma, Bronchitis, COPD, Sleep Apnea Endocrine Medical History: Diabetes Type II, Hypothyroidism Musculoskelatal History: Other GI Medical History: No Pertinent History History: No Pertinent History Pyscho-Social History: Anxiety, Depression Reproductive Disorders: Menstrual Problems, Other Comment: ANEMIA. ITP - Female History Hx Last Menstrual Period: current Are you now?: No - Past Surgical History Past Surgical History: No Neuro Surgical History: No Pertinent History Cardiac History: No Pertinent History Respiratory Surgery: No Pertinent History GI Surgical History: No Pertinent History Genitourinary Surgical Hx: No Pertinent History Musculskeletal Surgical Hx: No Pertinent History Female Surgical History: No Pertinent History - Social History Smoking Status: Never smoker Exposure to second hand smoke: Yes Alcohol: None Drug Use: none Significant Family History: no pertinent family hx - Physical Exam Vital Signs: Vital Signs - 24 hr Temp Pulse Resp BP BP Pulse Ox 09/16/16 11:25 97.9 F 78 22 134/63 98 09/16/16 11:24 87 112/57 09/16/16 11:09 62 134/63 09/16/16 07:18 98 F 80 20 127/62 98 09/16/16 06:32 79 16 98 09/16/16 03:53 98.7 F 75 16 123/64 98 09/15/16 23:14 78 20 97 09/15/16 22:37 98.0 F 71 16 117/58 96 09/15/16 21:54 89 22 122/55 97 09/15/16 21:51 98 09/15/16 21:12 90 18 134/68 97 09/15/16 19:47 88 10 L 96 09/15/16 19:02 98.3 F 90 20 137/63 98 Oxygen-Last 24 hours O2 Percentage 2 Liters = 28% O2 Percentage 2 Liters = 28% General Appearance: no apparent distress, alert Neurologic Exam: alert, 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, cooperative, normal mood/affect, nml cerebellar function, nml station & gait, sensation nml, No motor deficits Eye Exam: PERRL/EOMI, eyes nml inspection Ears, Nose, Throat Exam: normal ENT inspection, TMs normal, pharynx normal, moist mucous membranes Neck Exam: normal inspection, non-tender, supple, full range of motion Respiratory Exam: normal breath sounds, lungs clear, No respiratory distress Cardiovascular Exam: regular rate/rhythm, normal heart sounds, normal peripheral pulses Gastrointestinal/Abdomen Exam: soft, normal bowel sounds, No tenderness, No mass Back Exam: normal inspection, normal range of motion, No CVA tenderness, No vertebral tenderness Extremity Exam: normal inspection, normal range of motion, pelvis stable Skin Exam: normal color, warm, dry, No rash Lymphatic Exam: No adenopathy Results - Labs Lab/Micro Results: Accuchecks Date 09/16/16 Date 09/16/16 Time 11:30 Time 07:30 Accucheck Value: 93 Accucheck Value: 93 Lab Results-Last 24 Hours 09/16/16 09/16/16 09/16/16 Range/Units 05:44 05:44 05:44 WBC 7.6 (4.0-10.5) K/mm3 RBC 3.84 L (4.1-5.4) M/mm3 Hgb 10.5 L (12.0-16.0) gm/dl Hct 33.3 L (35-47) % MCV 86.7 (78-100) fl MCH 27.3 (26-32) pg MCHC 31.5 L (32-36) g/dl RDW 14.5 H (11.5-14.0) % Plt Count 304 (150-450) K/mm3 MPV 9.4 (6-9.5) fl Gran % 53.0 (36.0-66.0) % Lymphocytes % 31.6 (24.0-44.0) % Monocytes % 7.0 (0.0-12.0) % Eosinophils % 7.9 H (0.00-5.0) % Basophils % 0.5 (0.0-0.4) % Basophils # 0.04 (0-0.4) Sodium 144 (136-145) mEq/L Potassium 3.8 (3.5-5.1) mEq/L Chloride 106 (98-107) mEq/L Carbon Dioxide 27.5 (21-32) mEq/L Anion Gap 14.6 (5-15) MEQ/L BUN 23 H (9-20) mg/dL Creatinine 0.92 (0.55-1.30) mg/dl Estimated GFR > 60 ML/MIN Glucose 90 (70-110) MG/DL Calcium 8.6 (8.5-10.1) mg/dL Total Bilirubin 0.3 (0.2-1.0) mg/dL AST 21 (15-37) U/L ALT 41 (12-78) U/L Alkaline Phosphatase 97 (46-116) U/L Troponin I 0.153 H* (0.000-0.056) ng/ml Serum Total Protein 7.2 (6.4-8.2) gm/dL Albumin 3.7 (3.4-5.0) g/dL Triglycerides 73 (30-200) mg/dL Cholesterol 155 (100-200) mg/dL LDL Cholesterol 104 H (5-99) mg/dL HDL Cholesterol 40 (35-60) mg/dL Heart Disease Risk Ratio 3.9 Accuchecks Date 09/16/16 Date 09/16/16 Time 11:30 Time 07:30 Accucheck Value: 93 Accucheck Value: 93 - Other Procedures and Tests Respiratory Therapy 09/15/16 23:04 Respiratory Nebulizer UD Assessment/Plan (1) Chest pain Current Visit: Yes Status: Acute Qualifiers: Chest pain type: other chest pain Qualified Code(s): R07.89 - Other chest pain; R07.8 - Other chest pain Code(s): R07.9 - CHEST PAIN, UNSPECIFIED (2) Elevated troponin Current Visit: Yes Status: Acute Code(s): R74.8 - ABNORMAL LEVELS OF OTHER SERUM ENZYMES (3) Hx of intrinsic asthma Current Visit: Yes Status: Chronic Code(s): Z87.09 - PERSONAL HISTORY OF OTHER DISEASES OF THE RESPIRATORY SYSTEM (4) Diabetes Current Visit: No Status: Chronic Qualifiers: Diabetes mellitus type: type 2 Diabetes mellitus complication status: without complication Diabetes mellitus jail insulin use: without jail use Qualified Code(s): E11.9 - Type 2 diabetes mellitus without complications Code(s): E11.9 - TYPE 2 DIABETES MELLITUS WITHOUT COMPLICATIONS (5) Hypertension Current Visit: No Status: Chronic Qualifiers: Hypertension type: essential hypertension Qualified Code(s): I10 - Essential (primary) hypertension Code(s): I10 - ESSENTIAL (PRIMARY) HYPERTENSION (6) Morbid obesity Current Visit: Yes Status: Chronic Code(s): E66.01 - MORBID (SEVERE) OBESITY DUE TO EXCESS CALORIES
[2016-09-16] MEDS ORDERED: Glucophage 500 MG PO SCH (22:00)
[2016-09-16] MEDS ORDERED: ISOPTIN SR 180MG PO SCH ×2 (22:00)
[2016-09-16] MEDS ORDERED: VERAPAMIL HCL 200 MG PO SCH (22:00)
[2016-09-16] MEDS: ceLEXa 20 MG PO SCH (23:02)
[2016-09-17] MEDS: DILAUDID 2 MG INJECTION IV PRN ×3 (01:14→09:32)
[2016-09-17] MEDS: Sodium Chloride 0.9% 1000 ML 1,000 ML IV SCH (04:54)
[2016-09-17] MEDS: DUONEB 0.5-3 MG/3 ml Neb IH SCH ×2 (05:20→12:39)
--- NOTE | 2016-09-17 07:52 | CONS ---
CONSULT DATE: 09/16/2016 BRIEF HISTORY: This is a 36 year-old female who was seen because of elevated troponin I. The patient gave a history of having intermittent coughing spells with yellowish sputum for the past 12 days associated with some chest pain that she described as aggravated by deep inspiration and often by coughing. In addition, she also had some back pain starting on the lower back that goes to the posterior chest area. There is no diaphoresis, no syncope. She is also mildly short of breath. She was admitted for further evaluation and apparently she had troponin I that went up but is trending down. At the time of examination was still complaining of pleuritic-type of chest pain. She denies any fever but she said she had some chills. The patient has had previous stress test and she was told that this was within normal limits. She has a history of idiopathic thrombocytopenic purpura with platelets going down to the 40's. She has seen Dr. Enriquez and she was told not to take any NSAID's or aspirin. CURRENT MEDICATIONS: Tylenol, Albuterol inhaler, Celexa, Benadryl, famotidine, Dilaudid, lorazepam. CARDIAC RISK FACTORS: She has hypertension. She does not smoke. She has history of no history of diabetes. No known hyperlipidemia. FAMILY HISTORY: Positive for coronary artery disease. REVIEW OF SYSTEMS: RUG SCRATCHER: No history of stroke or seizure. RESPIRATORY: She has chronic obstructive lung disease on nebulizer. GI: Denies any peptic ulcer or colon disorder. : Negative for dysuria or hematuria. PERIPHERAL VASCULAR: No history of deep venous thrombosis or claudication. HEMATOLOGY: She has a history of idiopathic thrombocytopenic purpura. SOCIAL HISTORY: She is . She has no significant alcohol intake. PHYSICAL EXAMINATION: Her blood pressure 123/64 with heart rate 75, respirations about 16. GENERAL: The patient is a young female who is obese, alert, who is not in any form of distress. HEENT: Unremarkable. NECK: No significant JVD. No carotid bruit. CHEST: The breath sounds are harsh. CARDIAC: Heart tones are normal. There is no audible gallop. The rhythm is regular. ABDOMEN: Soft with normal bowel sounds. No bruits. EXTREMITIES: No significant edema with palpable distal pulses. LAB DATA AND DIAGNOSTIC TESTS: The EKG shows a normal sinus rhythm with poor R progression and nonspecific ST changes. IMPRESSION: In essence the patient has elevated troponin I possibly due to demand and supply mismatch from ongoing infection, this may also be secondary to respiratory tract infection associated with myocarditis. It is also possible that the patient has occlusive coronary artery disease. In view of the patient's history of idiopathic thrombocytopenic purpura and unable to take any aspirin would just continue with medical therapy. The patient will be started on beta blockers. The patient understands about her risk of having pain because of her history of thrombocytopenic purpura. I agree with aggressive treatment of infection. Will get an echocardiogram to assess left ventricle systolic function. I will follow up with you.
[2016-09-17] MEDS: Glucophage 500 MG PO SCH (09:20)
[2016-09-17] MEDS: FOLATE 1 MG PO SCH (09:20)
[2016-09-17] MEDS: Ativan 0.5 MG PO SCH (09:20)
[2016-09-17] MEDS: Singulair 10 MG PO SCH (09:20)
[2016-09-17] MEDS: LASIX 20 MG PO SCH (09:20)
[2016-09-17] MEDS: Pepcid 20 MG PO SCH (09:22)
[2016-09-17] MEDS: Januvia 50 MG PO SCH (09:22)
[2016-09-17] MEDS: ROCEPHIN 1 Gm-D5w 50 ml Bag** 50 ML IV SCH (09:23)
[2016-09-17] MEDS: ceLEXa 20 MG PO SCH (09:30)
[2016-09-17] MEDS ORDERED: Lopressor 25MG Tab PO SCH (10:00)
[2016-09-17] MEDS: BENADRYL 25 MG CAPSULE PO PRN (10:15)
[2016-09-17 12:02] VITALS: BP 96/44; PULSE 72
[2016-09-17 12:41] VITALS: O2SAT 92
--- NOTE | 2016-09-17 12:47 | PCM.DS ---
Discharge Summary Date of Admission: 09/15/16 22:11 Admitting Physician: TIM MAGUIRE Consults: Consults on Case 09/16/16 09:00 Cardiology Consult [Notify Systems Librarian of Admit] ROUTINE Primary Care Provider: TIM MAGUIRE Allergies Allergies Sulfa (Sulfonamide Antibiotics) [Sulfa(Sulfonamide Antibiotics)] Allergy ( Verified 09/15/16 19:07) Rash topiramate [From Topamax] Allergy (Verified 09/15/16 19:07) confusion aspirin Adverse Reaction (Severe, Verified 09/15/16 19:07) advised not to take it d/t it will cause her to bleed Hospital Summary - Hospital Course Hospital Course: Chief Complaint Diagnosis Shortness of Breath for weeks, c/o back pain for 2-3 weeks Allergies Allergy/AdvReac Type Severity Reaction Status Date / Time Sulfa (Sulfonamide Allergy Rash Verified 09/15/16 19:07 Antibiotics) [Sulfa(Sulfonamide Antibiotics)] topiramate [From Topamax] Allergy confusion Verified 09/15/16 19:07 aspirin AdvReac Severe Verified 09/15/16 19:07 Vital Signs (Last 24 hours) Temp Pulse Resp BP Pulse Ox 09/17/16 12:40 72 20 92 L 09/17/16 12:00 98.6 F 72 20 96/44 91 L 09/17/16 07:23 98.9 F 69 19 112/53 92 L 09/17/16 06:00 16 09/17/16 05:20 91 H 16 97 09/17/16 03:55 98.1 F 84 16 119/57 96 09/17/16 02:00 19 09/17/16 00:00 97.9 F 84 15 132/69 97 09/16/16 23:39 75 15 97 09/16/16 22:00 16 09/16/16 20:00 98.4 F 73 15 125/57 98 09/16/16 19:13 81 20 96 09/16/16 18:00 20 09/16/16 16:07 96.6 F 80 20 121/59 95 09/16/16 14:00 20 09/16/16 13:10 84 20 97 Home Medications Medication Instructions Recorded Confirmed Last Taken Type Furosemide [Lasix] 20 mg PO DAILY 09/15/16 09/15/16 09/15/16 08:00 History Sumatriptan Succinate [Imitrex 50 50 mg PO DAILY PRN PRN 09/15/16 09/16/16 Unknown History mg] Current Medications Generic Name Dose Route Start Last Admin Trade Name Freq PRN Reason Stop Dose Admin Acetaminophen 650 mg 09/15/16 22:16 Tylenol 325 Mg PO 10/15/16 22:15 Q4H PRN PRN PAIN AND/OR FEVER Albuterol Sulfate 2.5 mg 09/15/16 22:16 Proventil 2.5 Mg/3 Ml Neb IH 10/15/16 22:15 Q2H PRN PRN SHORTNESS OF BREATH/WHEEZING Albuterol/Ipratropium 3 ml 09/16/16 07:00 09/17/16 12:39 Duoneb 0.5-3 Mg/3 Ml Neb IH 10/16/16 06:59 3 ml TIDRT CAITY Administration Citalopram Hydrobromide 20 mg 09/15/16 23:30 09/17/16 09:30 Celexa 20 Mg PO 10/15/16 23:29 20 mg HS CAITY Administration Diphenhydramine HCl 25 mg 09/16/16 09:02 09/17/16 10:15 Benadryl 25 Mg Capsule PO 10/16/16 09:14 25 mg TIDPRN PRN Administration ITCHING Famotidine 40 mg 09/15/16 23:30 09/17/16 09:22 Pepcid 20 Mg PO 10/15/16 23:29 40 mg BID CAITY Administration Folic Acid 1 mg 09/16/16 10:00 09/17/16 09:20 Folate 1 Mg PO 10/16/16 09:59 1 mg DAILY CAITY Administration Furosemide 20 mg 09/16/16 10:00 09/17/16 09:20 Lasix 20 Mg PO 10/16/16 09:59 20 mg DAILY CAITY Administration Hydromorphone HCl 1 mg 09/15/16 22:16 09/17/16 09:32 Dilaudid 2 Mg Injection IV 09/20/16 22:15 1 mg Q4H PRN PRN Administration PAIN Ceftriaxone Sodium/Dextrose 50 mls @ 100 mls/hr 09/16/16 10:00 03/31/17 09:23 Rocephin 1 Gm-D5w 50 Ml Bag IV 10/16/16 09:59 100 mls/hr Q24H10 CAITY Administration Sodium Chloride 1,000 mls @ 150 mls/hr 09/15/16 22:16 09/17/16 04:54 Sodium Chloride 0.9% 1000 Ml IV 10/15/16 22:15 150 mls/hr .Q6H40M CAITY Administration Insulin Aspart 0 unit 09/15/16 22:16 Novolog Insulin SQ 10/15/16 22:15 UD PRN HYPERGLYCEMIA Lorazepam 0.5 mg 09/15/16 23:30 09/17/16 09:20 Ativan 0.5 Mg PO 10/15/16 23:29 0.5 mg BID CAITY Administration Metformin HCl 500 mg 09/16/16 10:00 09/17/16 09:20 Glucophage 500 Mg PO 10/16/16 09:59 Not Given DAILY CAITY Metformin HCl 250 mg 09/16/16 22:00 09/16/16 23:01 Glucophage 500 Mg PO 10/16/16 21:59 250 mg HS CAITY Administration Metoprolol Tartrate 12.5 mg 09/17/16 10:00 09/17/16 09:22 Lopressor 25mg Tab PO 10/17/16 09:59 12.5 mg DAILY CAITY Administration Montelukast Sodium 10 mg 09/16/16 10:00 09/17/16 09:20 Singulair 10 Mg PO 10/16/16 09:59 10 mg DAILY CAITY Administration Nitroglycerin 0.4 mg 09/15/16 22:16 09/16/16 11:24 Nitrostat 0.4 Mg Tablet SL 10/15/16 22:15 0.4 mg Q5MIN PRN MR X 3 PRN Administration CHEST PAIN Promethazine HCl 12.5 mg 09/15/16 22:16 09/16/16 11:18 Phenergan 25 Mg Inj IV 10/15/16 22:15 12.5 mg Q2H PRN PRN Administration NAUSEA/VOMITING Sitagliptin Phosphate 100 mg 09/16/16 10:00 09/17/16 09:22 Januvia 50 Mg PO 10/16/16 09:59 100 mg DAILY CAITY Administration Sumatriptan Succinate 6 mg 09/16/16 09:25 Imitrex 6 Mg/0.5 Ml SQ 10/16/16 09:24 QDP PRN HEADACHE Verapamil HCl 180 mg 09/16/16 22:00 09/16/16 23:04 Isoptin Sr 180mg PO 10/16/16 21:59 180 mg HS CAITY Administration Discontinued Medications Generic Name Dose Route Start Last Admin Trade Name Freq PRN Reason Stop Dose Admin Albuterol Sulfate 2.5 mg 09/15/16 19:19 09/15/16 19:34 Proventil 2.5 Mg/3 Ml Neb IH 09/15/16 19:20 2.5 mg STAT ONE Administration Albuterol Sulfate Confirm 09/15/16 19:32 Proventil 2.5 Mg/3 Ml Neb Administered 09/15/16 19:33 Dose 2.5 mg IH .STK-MED ONE Albuterol/Ipratropium 3 ml 09/15/16 23:00 09/15/16 22:58 Duoneb 0.5-3 Mg/3 Ml Neb IH 10/15/16 22:59 Not Given Q4HRT CAITY Albuterol/Ipratropium Confirm 09/15/16 22:33 Duoneb 0.5-3 Mg/3 Ml Neb Administered 09/15/16 22:34 Dose 3 ml IH .STK-MED ONE Ceftriaxone Sodium 1,000 mg 09/15/16 19:21 09/15/16 19:31 Rocephin 1000 Mg Inj IM 09/15/16 19:22 1,000 mg STAT ONE Administration Ceftriaxone Sodium Confirm 09/15/16 19:26 Rocephin 1000 Mg Inj Administered 09/15/16 19:27 Dose 1,000 mg .ROUTE .STK-MED ONE Diphenhydramine HCl 25 mg 09/15/16 23:30 09/15/16 23:13 Benadryl 25 Mg Capsule PO 10/15/16 23:29 25 mg HS CAITY Administration Hydromorphone HCl 1 mg 09/15/16 21:43 09/15/16 21:49 Hydromorphone 1 Mg/Ml Ampule IV 09/15/16 21:44 1 mg STAT ONE Administration Hydromorphone HCl Confirm 09/15/16 21:46 Hydromorphone 1 Mg/Ml Ampule Administered 09/15/16 21:47 Dose 1 mg .ROUTE .STK-MED ONE Sodium Chloride 1,000 mls @ 999 mls/hr 09/15/16 20:30 09/15/16 21:08 Sodium Chloride 0.9% 1000 Ml IV 09/15/16 21:30 999 mls/hr .Q1H1M STA Administration Sodium Chloride Confirm 09/15/16 21:07 Sodium Chloride 0.9% 1000 Ml Administered 09/15/16 21:08 Dose 1,000 mls @ ud .ROUTE .STK-MED ONE Lidocaine HCl Confirm 09/15/16 20:00 Xylocaine 1% Hcl 20 Ml Mdv Administered 09/15/16 20:01 Dose 3 ml .ROUTE .STK-MED ONE Metformin HCl 250 mg 09/16/16 07:21 Glucophage 500 Mg PO 10/16/16 07:20 HSPRN PRN elevated BS Metformin HCl 500 mg 09/16/16 07:21 Glucophage 500 Mg PO 10/16/16 07:20 DAILY PRN PRN HYPERGLYCEMIA Naproxen 375 mg 09/15/16 23:30 09/16/16 09:34 Naprosyn 375 Mg PO 10/15/16 23:29 375 mg BID CAITY Administration Naproxen Confirm 09/15/16 23:07 Naprosyn 500 Mg Administered 09/15/16 23:08 Dose 500 mg .ROUTE .STK-MED ONE Nitroglycerin Confirm 09/15/16 21:07 Nitrostat 0.4 Mg (Ed) Administered 09/15/16 21:08 Dose 0.4 mg SL .STK-MED ONE Nitroglycerin 0.4 mg 09/15/16 21:11 09/15/16 21:16 Nitrostat 0.4 Mg (Ed) SL 09/15/16 21:12 0.4 mg STAT ONE Administration Nitroglycerin Confirm 09/15/16 21:15 Nitrostat 0.4 Mg (Ed) Administered 09/15/16 21:16 Dose 0.4 mg SL .STK-MED ONE Promethazine HCl 12.5 mg 09/15/16 21:43 09/15/16 21:49 Phenergan 25 Mg Inj IV 09/15/16 21:44 12.5 mg STAT ONE Administration Promethazine HCl Confirm 09/15/16 21:46 Phenergan 25 Mg Inj Administered 09/15/16 21:47 Dose 25 mg .ROUTE .STK-MED ONE Intake & Output (Last 24 hours) 09/15/16 09/16/16 09/17/16 09/18/16 11:59 11:59 11:59 11:59 Intake Total 1820 4651 Balance 1820 4658 Weight 158.757 kg 163.157 kg Laboratory Results (Last 24 hours) 09/17/16 05:27 Troponin I 0.071 H* Orders (Last 24 hours) Category Date Time Status ECHO W/2D AND DOPPLER [US] Routine Exams 09/17/16 08:00 Taken TROPONIN Routine Lab 09/17/16 05:27 Completed Metformin HCl 500 mg [Glucophage 500 MG] Med 09/16/16 22:00 Active 250 mg PO HS Metoprolol Tartrate 25 mg [Lopressor 25MG Tab] Med 09/17/16 10:00 Active 12.5 mg PO DAILY Verapamil HCl Sr 180 mg [Isoptin Sr 180Mg] Med 09/16/16 22:00 Active 180 mg PO HS Patient Care Notes (Last 24 hours) 09/17/16 09:45 (created 09/17/16 11:07) Case Management Note by Jeanine Ochoa DISCHARGE PLAN REVIEWED, PROVIDES SELF CARE, INDEPENDENT WITH ALL ADL'S. DECLINED NEED FOR ADDNL SERVICES/EQUIP ON DC. PLAN TO RETURN HOME TO PRE EPISODIC LEVEL OF [facility]. Initialized on 09/17/16 11:07 - END OF NOTE 09/16/16 19:12 Respiratory Note by Rome Cosby PT REFUSED 1900 TX, ASKED TO HAVE ME COME BACK AROUND 2300. Initialized on 09/16/16 19:12 - END OF NOTE Patient is doing better. Troponin back to normal. coronary calcium score CT scan as an outpatient. will discharge home. - Vitals & Intake/Output Vital Signs: Vital Signs Temperature 98.6 F 09/17/16 12:00 Pulse Rate 72 09/17/16 12:40 Respiratory Rate 20 09/17/16 12:40 Blood Pressure 96/44 09/17/16 12:00 O2 Sat by Pulse Oximetry 92 L 09/17/16 12:40 Oxygen-Last Documented O2 Percentage 2 Liters = 28% Intake & Output: Intake & Output 09/15/16 09/16/16 09/17/16 09/18/16 11:59 11:59 11:59 11:59 Intake Total 1820 4658 Balance 1820 4658 Weight 158.757 kg 163.157 kg - Lab Result Diagrams: 09/16/16 05:44 09/16/16 05:44 Lab Results-Last 24 Hrs: Accuchecks Date 09/17/16 Date 09/16/16 Date 09/16/16 Time 07:30 Time 22:00 Time 16:30 Accucheck Value: 106 Accucheck Value: 117 Accucheck Value: 119 Lab Results-Last 24 Hours 09/17/16 Range/Units 05:27 Troponin I 0.071 H* (0.000-0.056) ng/ml Micro Results-Entire Visit: Accuchecks Date 09/17/16 Date 09/16/16 Date 09/16/16 Time 07:30 Time 22:00 Time 16:30 Accucheck Value: 106 Accucheck Value: 117 Accucheck Value: 119 - Radiology Exams Ordered Rad Exams-Entire Visit: Radiology Procedures Category Date Time Status ECHO W/2D AND DOPPLER [US] Routine Exams 09/17/16 08:00 Taken - Procedures and Test Procedures and Tests throughout Hospitalization: Therapy Orders & Screens 09/15/16 23:04 Respiratory Nebulizer UD Comment: Diagnosis: Shortness of Breath 09/16/16 11:03 EKG ROUTINE Comment: Diagnosis: Shortness of Breath Discharge Exam General Appearance: no apparent distress, alert Neurologic Exam: alert, 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, cooperative, normal mood/affect, nml cerebellar function, sensation nml, No motor deficits Skin Exam: normal color, warm, dry Eye Exam: PERRL, EOMI, eyes nml inspection Ears, Nose, Throat Exam: normal ENT inspection, pharynx normal, moist mucous membranes Neck Exam: normal inspection, non-tender, supple, full range of motion Respiratory Exam: normal breath sounds, lungs clear, No respiratory distress Cardiovascular Exam: regular rate/rhythm, normal heart sounds Gastrointestinal/Abdomen Exam: soft, No tenderness, No mass Extremity Exam: normal inspection, normal range of motion Back Exam: normal inspection, normal range of motion, No CVA tenderness, No vertebral tenderness Pelvic Exam: deferred Rectal Exam: deferred Final Diagnosis/Problem List - Final Discharge Diagnosis/Problem (1) Chest pain Current Visit: Yes Status: Resolved (2) Elevated troponin Current Visit: Yes Status: Resolved (3) Hx of intrinsic asthma Current Visit: Yes Status: Chronic (4) Diabetes Current Visit: No Status: Chronic (5) Hypertension Current Visit: No Status: Chronic (6) Morbid obesity Current Visit: No Status: Chronic - Discharge Discharge Date: 09/17/16 Disposition: Home, Self-Care Condition: Stable Prescriptions: New Metoprolol Tartrate 25 mg [Lopressor 25MG Tab] 12.5 mg PO DAILY #30 tab Continue Metformin HCl 500 mg [Glucophage 500 MG] 500 mg PO DAILY Citalopram Hydrobromide 20 mg* [ceLEXa 20 MG] 20 mg PO DAILY Montelukast Sodium [Singulair] 10 mg PO DAILY Lorazepam 0.5 mg [Ativan 0.5 MG] 0.5 mg PO BID Sitagliptin Phosphate [Januvia] 100 mg PO DAILY Metformin HCl 500 mg [Glucophage 500 MG] 250 mg PO HS Famotidine 40 mg PO BID Diphenhydramine HCl 25 mg [Benadryl 25 mg Capsule] 25 mg PO QHS Naproxen 375 mg [Naprosyn 375 mg] 375 mg PO BID Verapamil HCl [Verapamil ER Pm] 200 mg PO HS Folic Acid 0.8 mg PO DAILY Furosemide [Lasix] 20 mg PO DAILY Sumatriptan Succinate [Imitrex 50 mg] 50 mg PO DAILY PRN PRN PRN Reason: Headache Instructions: Bronchitis, Diabetes Type 2, Viral Pharyngitis Follow up with: GIANCARLO KIRBY [ACTIVE STAFF] - 09/23/16 3:00 pm TIM MAGUIRE MD [Primary Care Provider] - 09/24/16 2:00 pm ([facility]) Forms: Discharge Instructions
== END 2016-09-17 13:39 | disposition home or self-care (01) ==
LOC: ED 18:49 → MED SURG 22:11
PROVIDERS: ADMIT General Practice; ATTEND General Practice
DX: R07.9 Chest pain, unspecified (principal); R79.89 Other specified abnormal findings of blood chemistry; Z87.09 Personal history of other diseases of the respiratory system; E11.9 Type 2 diabetes mellitus without complications; I10 Essential (primary) hypertension; E66.01 Morbid (severe) obesity due to excess calories; Z79.4 Long term (current) use of insulin; J44.9 Chronic obstructive pulmonary disease, unspecified; G47.30 Sleep apnea, unspecified; E03.9 Hypothyroidism, unspecified; F41.8 Other specified anxiety disorders; Z79.899 Other long term (current) drug therapy
CPT/HCPCS: 36000; 36415; 36600; 71010; 80053; 80061; 81002; 82150; 82375; 82803; 82962; 83690; 83721; 83735; 84484; 85025; 93005; 93041; 93268; 93306; 94640; 94760; 96360; 96372; 96374; 96375; 99285; G0378; J0696; J1170; J2550; A9270-GY

== ENCOUNTER 2016-10-02 19:31 | Emergency (ER) | payer OTHER, SELFPAY ==
[2016-10-02] MEDS ORDERED: Nitrostat 0.4 MG (ED) SL ONE ×4 (19:59→20:25)
[2016-10-02] MEDS ORDERED: Phenergan 25 MG INJ IV ONE (19:59)
[2016-10-02 20:05] LABS: BASOPHIL % 0.3 % (0.0-0.4); Eosinophil % 2.6 % (0.00-5.0); Granulocytes % 70.8 % (36.0-66.0); Lymphocytes % 20.8 % (24.0-44.0); Mean Cell Volume 85.1 fl (78-100); Mean Platelet Volume 9.3 fl (6-9.5); Monocytes % 5.5 % (0.0-12.0); Platelet Count 255 K/mm3 (150-450); Red Blood Count 3.97 M/mm3 (4.1-5.4); Red Cell Distribution Width 14.2 % (11.5-14.0); White Blood Count 7.2 K/mm3 (4.0-10.5)
[2016-10-02] MEDS ORDERED: Phenergan 25 MG INJ ONE (20:05)
--- NOTE | 2016-10-02 20:05 | ERPHSYRPT ---
- History of Present Illness Time Seen by Provider: 10/02/16 19:54 Historian: patient Exam Limitations: no limitations Patient Subjective Stated Complaint: STATES THAT DR. KIRBY TOLD HER THAT SHE HAS AN INFECTION AROUND HER HEART X 2 WEEKS AGO AND HAS BEEN HAVING PAIN SINCE THAT TIME - STATES THAT HE DID NOT GIVE HER ANYTHING FOR PAIN - ALSO C/O NAUSEA AT THIS TIME Triage Nursing Assessment: AMBULATORY TO TREATMENT AREA - STEADY GAIT - MOVES ALL EXTREMITIES WITH EQUAL STRENGTH. ALERT/ORIENTED - ANXIOUS AFFECT. SKIN PWD - NO RASH/INJURY. RESPS LABORED - SCATTERED WHEEZING Physician History: FOR THE PAST 2 DAYS PT HAS HAD SHARP/DULL CONSTANT LEFT ANTERIOR CHEST PAIN RADIATING TO THE LEFT ARM WORSE WITH MOVEMENT. THIS AM PT HAS HAD SHORTNESS OF AIR AND NAUSEA. PT DENIES FEVER, DIAPHORESIS, CHILLS. Aspirin Treatment Today: no aspirin today Allergies/Adverse Reactions: Sulfa (Sulfonamide Antibiotics) [Sulfa(Sulfonamide Antibiotics)] Allergy ( Verified 10/02/16 19:34) Rash topiramate [From Topamax] Allergy (Verified 10/02/16 19:34) confusion aspirin Adverse Reaction (Severe, Verified 10/02/16 19:34) advised not to take it d/t it will cause her to bleed Home Medications: Metformin HCl 500 mg [Glucophage 500 MG] 500 mg PO DAILY 07/14/14 [History ] Citalopram Hydrobromide 20 mg* [ceLEXa 20 MG] 20 mg PO DAILY 07/24/14 [ History] Lorazepam 0.5 mg [Ativan 0.5 MG] 0.5 mg PO BID 07/02/15 [History] Montelukast Sodium [Singulair] 10 mg PO DAILY 07/02/15 [History] Sitagliptin Phosphate [Januvia] 100 mg PO DAILY 07/08/15 [History] Famotidine 40 mg PO BID 03/09/16 [History] Metformin HCl 500 mg [Glucophage 500 MG] 250 mg PO HS 03/09/16 [History] Diphenhydramine HCl 25 mg [Benadryl 25 mg Capsule] 25 mg PO QHS 05/28/16 [ History] Folic Acid 0.8 mg PO DAILY 08/16/16 [History] Naproxen 375 mg [Naprosyn 375 mg] 375 mg PO BID 08/16/16 [History] Verapamil HCl [Verapamil ER Pm] 200 mg PO HS 08/16/16 [History] Furosemide [Lasix] 20 mg PO DAILY 09/15/16 [History] Sumatriptan Succinate [Imitrex 50 mg] 50 mg PO DAILY PRN PRN 09/15/16 [History] Hx Tetanus, Diphtheria Vaccination/Date Given: Yes Hx Influenza Vaccination/Date Given: Yes Hx Pneumococcal Vaccination/Date Given: No Immunizations Up to Date: Yes - Review of Systems Constitutional: No Fever, No Chills Respiratory: Dyspnea Cardiac: Chest Pain Abdominal/Gastrointestinal: Nausea Musculoskeletal: Other (LEFT ARM PAIN) Endocrine: No Excessive Sweating All Other Systems: Reviewed and Negative - Past Medical History Pertinent Past Medical History: Yes Neurological History: Migraines, Other ENT History: No Pertinent History Cardiac History: High Cholesterol, Hypertension, Other Respiratory History: Asthma, Bronchitis, COPD, Sleep Apnea Endocrine Medical History: Diabetes Type II, Hypothyroidism Musculoskeletal History: Other GI Medical History: No Pertinent History History: No Pertinent History Psycho-Social History: Anxiety, Depression Female Reproductive Disorders: Menstrual Problems, Other Other Medical History: ANEMIA. ITP - Past Surgical History Past Surgical History: No Neuro Surgical History: No Pertinent History Cardiac: No Pertinent History Respiratory: No Pertinent History Gastrointestinal: No Pertinent History Genitourinary: No Pertinent History Musculoskeletal: No Pertinent History Female Surgical History: No Pertinent History - Social History Smoking Status: Never smoker Exposure to second hand smoke: No Alcohol Use: None Drug Use: none Patient Lives Alone: No Significant Family History: no pertinent family hx - Female History Hx Last Menstrual Period: 2.5 WEEKS AGO Hx Now: No - Nursing Vital Signs Temperature: 99.2 F Temperature Source: Oral Pulse Rate: 110 Respiratory Rate: 24 Pain Intensity: 10 - Physical Exam General Appearance: alert Eye Exam: PERRL/EOMI Ears, Nose, Throat Exam: TMs normal, moist mucous membranes, pharyngeal erythema (MINIMAL) Neck Exam: normal inspection Respiratory Exam: lungs clear Cardiovascular Exam: normal heart sounds Gastrointestinal/Abdomen Exam: soft, normal bowel sounds Back Exam: normal range of motion Extremity Exam: normal inspection, No pedal edema Neurologic Exam: alert, cooperative Skin Exam: warm, dry SpO2 Interpretation: normal SpO2: 98 Oxygen Delivery: Room Air - Course Nursing assessment & vital signs reviewed: Yes EKG Interpreted by Me: RATE (100), NORMAL AXIS, LAFB, Other (UNIFOCAL PVC'S) Ordered Tests: Active Orders 24 hr Category Date Time Status Brazing Furnace Feeder STAT Care 10/02/16 19:59 Active Clean Catch Urine Specimen STAT Care 10/02/16 19:59 Active EKG-ER Only STAT Care 10/02/16 19:50 Active IV Insertion STAT Care 10/02/16 19:50 Active Oxygen-ED Only NASAL CANNULA 2 lpm Care 10/02/16 19:59 Active Pulse Oximetry (ED) STAT Care 10/02/16 19:59 Active CHEST 1 VIEW (PORTABLE) Stat Exams 10/02/16 19:59 Completed AMYLASE Stat Lab 10/02/16 19:50 Completed CBC W DIFF Stat Lab 10/02/16 19:50 Completed CMP Stat Lab 10/02/16 19:50 Completed CULTURE, THROAT Stat Lab 10/02/16 20:21 Received Erythrocyte Sedimentation Rate Stat Lab 10/02/16 19:50 Completed LIPASE Stat Lab 10/02/16 19:50 Completed MAGNESIUM Stat Lab 10/02/16 19:50 Completed Rankin Screen Stat Lab 10/02/16 19:50 Completed STREP SCREEN-BETA A Stat Lab 10/02/16 20:21 Completed TROPONIN Q3H Lab 10/02/16 19:50 Completed TROPONIN Q3H Lab 10/02/16 23:00 Ordered TROPONIN Q3H Lab 10/03/16 02:00 Ordered TROPONIN Q3H Lab 10/03/16 05:00 Ordered TROPONIN Q3H Lab 10/03/16 08:00 Ordered UA Stat Lab 10/02/16 20:18 Completed Medication Summary Generic Name Dose Route Start Last Admin Trade Name Freq PRN Reason Stop Dose Admin Sodium Chloride 1,000 mls @ 999 mls/hr 10/02/16 21:04 10/02/16 21:13 Sodium Chloride 0.9% 1000 Ml IV 10/02/16 22:04 999 mls/hr .Q1H1M STA Administration Discontinued Medications Generic Name Dose Route Start Last Admin Trade Name Freq PRN Reason Stop Dose Admin Magnesium Sulfate/Dextrose 100 mls @ 200 mls/hr 10/02/16 21:04 10/02/16 21:13 Magnesium 1 Gm / 100 Ml D5w IV 10/02/16 21:33 200 mls/hr STAT ONE Administration Magnesium Sulfate/Dextrose Confirm 10/02/16 21:09 Magnesium 1 Gm / 100 Ml D5w Administered 10/02/16 21:10 Dose 100 mls @ ud IV .STK-MED ONE Sodium Chloride Confirm 10/02/16 21:09 Sodium Chloride 0.9% 1000 Ml Administered 10/02/16 21:10 Dose 1,000 mls @ ud .ROUTE .STK-MED ONE Ketorolac Tromethamine 15 mg 10/02/16 20:50 10/02/16 20:55 Toradol 30 Mg Injection IV 10/02/16 20:51 15 mg STAT ONE Administration Ketorolac Tromethamine Confirm 10/02/16 20:53 Toradol 30 Mg Injection Administered 10/02/16 20:54 Dose 30 mg .ROUTE .STK-MED ONE Nitroglycerin 0.4 mg 10/02/16 19:59 10/02/16 20:09 Nitrostat 0.4 Mg (Ed) SL 10/02/16 20:00 0.4 mg STAT ONE Administration Nitroglycerin Confirm 10/02/16 20:06 Nitrostat 0.4 Mg (Ed) Administered 10/02/16 20:07 Dose 0.4 mg SL .STK-MED ONE Nitroglycerin 0.4 mg 10/02/16 20:23 10/02/16 20:26 Nitrostat 0.4 Mg (Ed) SL 10/02/16 20:24 0.4 mg STAT ONE Administration Nitroglycerin Confirm 10/02/16 20:25 Nitrostat 0.4 Mg (Ed) Administered 10/02/16 20:26 Dose 0.4 mg SL .STK-MED ONE Promethazine HCl 12.5 mg 10/02/16 19:59 10/02/16 20:09 Phenergan 25 Mg Inj IV 10/02/16 20:00 12.5 mg STAT ONE Administration Promethazine HCl Confirm 10/02/16 20:05 Phenergan 25 Mg Inj Administered 10/02/16 20:06 Dose 25 mg .ROUTE .STK-MED ONE Lab/Rad Data: Laboratory Result Diagrams 10/02/16 19:50 04/15/17 19:50 Laboratory Results 10/02/16 10/02/16 10/02/16 Range/Units 20:21 20:21 20:18 WBC (4.0-10.5) K/mm3 RBC (4.1-5.4) M/mm3 Hgb (12.0-16.0) gm/dl Hct (35-47) % MCV (78-100) fl MCH (26-32) pg MCHC (32-36) g/dl RDW (11.5-14.0) % Plt Count (150-450) K/mm3 MPV (6-9.5) fl Gran % (36.0-66.0) % Lymphocytes % (24.0-44.0) % Monocytes % (0.0-12.0) % Eosinophils % (0.00-5.0) % Basophils % (0.0-0.4) % Basophils # (0-0.4) ESR (0-20) mm/hr Sodium (136-145) mEq/L Potassium (3.5-5.1) mEq/L Chloride (98-107) mEq/L Carbon Dioxide (21-32) mEq/L Anion Gap (5-15) MEQ/L BUN (9-20) mg/dL Creatinine (0.55-1.30) mg/dl Estimated GFR ML/MIN Glucose (70-110) MG/DL Calcium (8.5-10.1) mg/dL Magnesium (1.8-2.4) mg/dL Total Bilirubin (0.2-1.0) mg/dL AST (15-37) U/L ALT (12-78) U/L Alkaline Phosphatase (46-116) U/L Troponin I (0.000-0.056) ng/ml Serum Total Protein (6.4-8.2) gm/dL Albumin (3.4-5.0) g/dL Amylase (25-115) U/L Lipase (73-393) U/L Ur Collection Type CLEAN CATCH Urine Color YELLOW (YELLOW) Urine Appearance CLEAR (CLEAR) Urine pH 5.5 (5-6) Ur Specific [place] 1.020 (1.005-1.025) Urine Protein NEGATIVE (Negative) Urine Glucose (UA) NEGATIVE (NEGATIVE) mg/dL Urine Ketones NEGATIVE (NEGATIVE) Urine Nitrite NEGATIVE (NEGATIVE) Urine Bilirubin NEGATIVE (NEGATIVE) Urine Urobilinogen 0.2 (0-1) mg/dL Urine WBC (Auto) NEGATIVE (NEGATIVE) Urine RBC (Auto) NEGATIVE (0-5) [place]/ul Monoscreen (Negative) Influenza Type A Ag NEGATIVE (NEGATIVE) Influenza Type B Ag NEGATIVE (NEGATIVE) RSV (PCR) NEGATIVE (Negative) Streptococcus Screen NEGATIVE (Negative) Specimen Received 10/02/16:201410/02/16 10/02/16 10/02/16 Range/Units 19:50 19:50 19:50 WBC (4.0-10.5) K/mm3 RBC (4.1-5.4) M/mm3 Hgb (12.0-16.0) gm/dl Hct (35-47) % MCV (78-100) fl MCH (26-32) pg MCHC (32-36) g/dl RDW (11.5-14.0) % Plt Count (150-450) K/mm3 MPV (6-9.5) fl Gran % (36.0-66.0) % Lymphocytes % (24.0-44.0) % Monocytes % (0.0-12.0) % Eosinophils % (0.00-5.0) % Basophils % (0.0-0.4) % Basophils # (0-0.4) ESR 33 H (0-20) mm/hr Sodium (136-145) mEq/L Potassium (3.5-5.1) mEq/L Chloride (98-107) mEq/L Carbon Dioxide (21-32) mEq/L Anion Gap (5-15) MEQ/L BUN (9-20) mg/dL Creatinine (0.55-1.30) mg/dl Estimated GFR ML/MIN Glucose (70-110) MG/DL Calcium (8.5-10.1) mg/dL Magnesium (1.8-2.4) mg/dL Total Bilirubin (0.2-1.0) mg/dL AST (15-37) U/L ALT (12-78) U/L Alkaline Phosphatase (46-116) U/L Troponin I < 0.017 (0.000-0.056) ng/ml Serum Total Protein (6.4-8.2) gm/dL Albumin (3.4-5.0) g/dL Amylase (25-115) U/L Lipase (73-393) U/L Ur Collection Type Urine Color (YELLOW) Urine Appearance (CLEAR) Urine pH (5-6) Ur Specific [place] (1.005-1.025) Urine Protein (Negative) Urine Glucose (UA) (NEGATIVE) mg/dL Urine Ketones (NEGATIVE) Urine Nitrite (NEGATIVE) Urine Bilirubin (NEGATIVE) Urine Urobilinogen (0-1) mg/dL Urine WBC (Auto) (NEGATIVE) Urine RBC (Auto) (0-5) [place]/ul Monoscreen NEGATIVE (Negative) Influenza Type A Ag (NEGATIVE) Influenza Type B Ag (NEGATIVE) RSV (PCR) (Negative) Streptococcus Screen (Negative) Specimen Received 10/02/16 10/02/16 Range/Units 19:50 19:50 WBC 7.2 (4.0-10.5) K/mm3 RBC 3.97 L (4.1-5.4) M/mm3 Hgb 10.7 L (12.0-16.0) gm/dl Hct 33.8 L (35-47) % MCV 85.1 (78-100) fl MCH 26.9 (26-32) pg MCHC 31.7 L (32-36) g/dl RDW 14.2 H (11.5-14.0) % Plt Count 255 (150-450) K/mm3 MPV 9.3 (6-9.5) fl Gran % 70.8 H (36.0-66.0) % Lymphocytes % 20.8 L (24.0-44.0) % Monocytes % 5.5 (0.0-12.0) % Eosinophils % 2.6 (0.00-5.0) % Basophils % 0.3 (0.0-0.4) % Basophils # 0.02 (0-0.4) ESR (0-20) mm/hr Sodium 138 (136-145) mEq/L Potassium 3.7 (3.5-5.1) mEq/L Chloride 104 (98-107) mEq/L Carbon Dioxide 25.8 (21-32) mEq/L Anion Gap 11.7 (5-15) MEQ/L BUN 21 H (9-20) mg/dL Creatinine 0.96 (0.55-1.30) mg/dl Estimated GFR > 60 ML/MIN Glucose 203 H (70-110) MG/DL Calcium 8.8 (8.5-10.1) mg/dL Magnesium 1.6 L (1.8-2.4) mg/dL Total Bilirubin 0.4 (0.2-1.0) mg/dL AST 16 (15-37) U/L ALT 39 (12-78) U/L Alkaline Phosphatase 100 (46-116) U/L Troponin I (0.000-0.056) ng/ml Serum Total Protein 6.9 (6.4-8.2) gm/dL Albumin 3.5 (3.4-5.0) g/dL Amylase 41 (25-115) U/L Lipase 97 (73-393) U/L Ur Collection Type Urine Color (YELLOW) Urine Appearance (CLEAR) Urine pH (5-6) Ur Specific [place] (1.005-1.025) Urine Protein (Negative) Urine Glucose (UA) (NEGATIVE) mg/dL Urine Ketones (NEGATIVE) Urine Nitrite (NEGATIVE) Urine Bilirubin (NEGATIVE) Urine Urobilinogen (0-1) mg/dL Urine WBC (Auto) (NEGATIVE) Urine RBC (Auto) (0-5) [place]/ul Monoscreen (Negative) Influenza Type A Ag (NEGATIVE) Influenza Type B Ag (NEGATIVE) RSV (PCR) (Negative) Streptococcus Screen (Negative) Specimen Received - Progress Discussed with : Aguila ([facility] - [id number]) - Departure Time of Disposition: 21:45 Departure Disposition: Home Clinical Impression: CHEST PAIN, HYPOMAGNESEMIA Condition: Fair Critical Care Time: No Referrals: TIM MAGUIRE MD [Primary Care Provider] - Instructions: Chest Pain Additional Instructions: FOLLOW UP WITH PRIVATE DOCTOR TOMORROW.
[2016-10-02 20:24] LABS: ALBUMIN 3.5 g/dL (3.4-5.0); ALKALINE PHOSPHATASE 100 U/L (46-116); ANION GAP 11.7 MEQ/L (5-15); BILIRUBIN,TOTAL 0.4 mg/dL (0.2-1.0); BLOOD UREA NITROGEN 21 mg/dL (9-20); CHLORIDE 104 mEq/L (98-107); Carbon Dioxide 25.8 mEq/L (21-32); Glucose 203 MG/DL (70-110); LIPASE 97 U/L (73-393); MAGNESIUM 1.6 mg/dL (1.8-2.4); Potassium 3.7 mEq/L (3.5-5.1); SGOT/AST 16 U/L (15-37); SGPT/ALT 39 U/L (12-78); SODIUM 138 mEq/L (136-145); Total Protein 6.9 gm/dL (6.4-8.2)
[2016-10-02 20:27] LABS: Mean Corpuscular Hemoglobin 26.9 pg (26-32)
[2016-10-02 20:27] LABS: COMPLETE URINE MICROSCOPIC? NO; Collection Type CLEAN CATCH; Ph 5.5 (5-6)
[2016-10-02] MEDS ORDERED: TORAdol 30 mg Injection IV ONE (20:50)
[2016-10-02] MEDS ORDERED: TORAdol 30 mg Injection ONE (20:53)
[2016-10-02] MEDS ORDERED: Magnesium 1 Gm / 100 Ml D5W*** 100 ML IV ONE ×2 (21:04→21:09)
[2016-10-02] MEDS ORDERED: Sodium Chloride 0.9% 1000 ML 1,000 ML IV STA (21:04)
[2016-10-02] MEDS ORDERED: Sodium Chloride 0.9% 1000 ML 1,000 ML ONE (21:09)
--- NOTE | 2016-10-02 21:27 | XRAY ---
Indication: Chest pain and short of breath. History of asthma. Comparison: September 15, 2016. Portable chest again demonstrates normal heart, lungs, and bony thorax.
[2016-10-02] MEDS ORDERED: Hydromorphone 1 mg/ml Ampule IV ONE (21:46)
[2016-10-02] MEDS ORDERED: Hydromorphone 1 mg/ml Ampule ONE (21:50)
[2016-10-02 22:16] VITALS: BP 132/46; PULSE 80; O2SAT 97
== END 2016-10-02 22:19 | disposition home or self-care (01) ==
LOC: ED 19:31
DX: R07.89 Other chest pain (principal); E83.42 Hypomagnesemia; Z79.84 Long term (current) use of oral hypoglycemic drugs; Z79.4 Long term (current) use of insulin; R06.02 Shortness of breath; R11.0 Nausea; E78.00 Pure hypercholesterolemia, unspecified; I10 Essential (primary) hypertension; E11.9 Type 2 diabetes mellitus without complications
CPT/HCPCS: 36000; 36415; 71010; 80053; 81002; 82150; 83690; 83735; 84484; 85025; 85652; 86308; 87070; 87430; 87631; 93005; 93041; 96360; 96361; 96365; 96374; 96375; 99284; 99285; J1170; J1885; J2550; J3475; A9270-GY

== ENCOUNTER 2016-11-04 13:03 | Emergency (ER) | payer OTHER, SELFPAY ==
--- NOTE | 2016-11-04 13:20 | ERPHSYRPT ---
- History of Present Illness Time Seen by Provider: 11/04/16 13:10 Source: patient Patient Subjective Stated Complaint: pt arrived per ambulance for cough and wheezes, took 3 neb treatments at home, coughing up white sputum, no fever, pain from coughing Triage Nursing Assessment: pt alert,resp easy, chest clear, skin w/d pinl, no distress Physician History: Pt. with cough with whitish sputum that began yesterday. States asthma worse with cough/bronchitis and took 3 nebs at home prior to coming to ED. States increase chest discomfort with coughing but not fever, chills, vomiting or diarrhea. States no dizziness or weakness. Took Prednisone 20mg this AM as well. Timing/Duration: yesterday Cough Quality/Degree: moderate, productive cough Possible Cause: occasional episodes Modifying Factors: Improves With: albuterol inhaler (improves), albuterol nebulizer (improves), coughing (worsens) Associated Symptoms: chest pain/soreness, cough, nasal drainage, sore throat, No fever, No chills, No nasal congestion, No shortness of breath International travel in last 2 weeks: No Allergies/Adverse Reactions: Sulfa (Sulfonamide Antibiotics) [Sulfa(Sulfonamide Antibiotics)] Allergy ( Verified 11/04/16 13:09) Rash topiramate [From Topamax] Allergy (Verified 11/04/16 13:09) confusion aspirin Adverse Reaction (Severe, Verified 11/04/16 13:09) advised not to take it d/t it will cause her to bleed Home Medications: Metformin HCl 500 mg [Glucophage 500 MG] 500 mg PO DAILY 07/14/14 [History ] Citalopram Hydrobromide 20 mg* [ceLEXa 20 MG] 20 mg PO DAILY 07/24/14 [ History] Lorazepam 0.5 mg [Ativan 0.5 MG] 0.5 mg PO BID 07/02/15 [History] Montelukast Sodium [Singulair] 10 mg PO DAILY 07/02/15 [History] Sitagliptin Phosphate [Januvia] 100 mg PO DAILY 07/08/15 [History] Famotidine 40 mg PO BID 03/09/16 [History] Metformin HCl 500 mg [Glucophage 500 MG] 250 mg PO HS 03/09/16 [History] Diphenhydramine HCl 25 mg [Benadryl 25 mg Capsule] 25 mg PO QHS 05/28/16 [ History] Folic Acid 0.8 mg PO DAILY 08/16/16 [History] Naproxen 375 mg [Naprosyn 375 mg] 375 mg PO BID 08/16/16 [History] Verapamil HCl [Verapamil ER Pm] 200 mg PO HS 08/16/16 [History] Furosemide [Lasix] 20 mg PO DAILY 09/15/16 [History] Sumatriptan Succinate [Imitrex 50 mg] 50 mg PO DAILY PRN PRN 09/15/16 [History] Levothyroxine Sodium 75 Mcg [Synthroid 75 Mcg] 75 mcg DAILY 11/04/16 [ History] Hx Tetanus, Diphtheria Vaccination/Date Given: Yes Hx Influenza Vaccination/Date Given: Yes Hx Pneumococcal Vaccination/Date Given: Yes Immunizations Up to Date: Yes - Review of Systems Constitutional: No Fever, No Chills Eyes: No Symptoms Ears, Nose, & Throat: No Symptoms, Nose Congestion, Nose Discharge, Throat Pain Respiratory: Cough, No Dyspnea Cardiac: No Chest Pain, No Edema, No Palpitations, No Syncope Abdominal/Gastrointestinal: No Abdominal Pain, No Nausea, No Vomiting, No Diarrhea Genitourinary Symptoms: No Dysuria Musculoskeletal: No Back Pain, No Neck Pain Skin: No Rash Neurological: No Dizziness, No Focal Weakness, No Sensory Changes Psychological: No Symptoms Endocrine: No Symptoms All Other Systems: Reviewed and Negative - Past Medical History Pertinent Past Medical History: Yes Neurological History: Migraines, Other ENT History: No Pertinent History Cardiac History: High Cholesterol, Hypertension, Other Respiratory History: Asthma, Bronchitis, COPD, Sleep Apnea Endocrine Medical History: Diabetes Type II, Hypothyroidism Musculoskeletal History: Other GI Medical History: No Pertinent History History: No Pertinent History Psycho-Social History: Anxiety, Depression Female Reproductive Disorders: Menstrual Problems, Other Other Medical History: ANEMIA. ITP - Past Surgical History Past Surgical History: No Neuro Surgical History: No Pertinent History Cardiac: No Pertinent History Respiratory: No Pertinent History Gastrointestinal: No Pertinent History Genitourinary: No Pertinent History Musculoskeletal: No Pertinent History Female Surgical History: No Pertinent History - Social History Smoking Status: Never smoker Exposure to second hand smoke: Yes Alcohol Use: None Drug Use: none Patient Lives Alone: No Significant Family History: no pertinent family hx - Female History Hx Last Menstrual Period: 2 weeks ago Hx Now: No - Nursing Vital Signs Nursing Vital Signs: Initial Vital Signs Temperature 97.5 F Temperature Source Oral Pulse Rate 90 Respiratory Rate 18 Blood Pressure [Right Arm] 105/55 Pain Intensity 9 - Physical Exam General Appearance: no apparent distress, alert, other (extreme obesity) Eye Exam: PERRL/EOMI, eyes nml inspection Ears, Nose, Throat Exam: normal ENT inspection, TMs normal, pharynx normal, moist mucous membranes Neck Exam: normal inspection, non-tender, supple, full range of motion Respiratory Exam: normal breath sounds, lungs clear, No respiratory distress Cardiovascular Exam: regular rate/rhythm, normal heart sounds Gastrointestinal/Abdomen Exam: soft, No tenderness Back Exam: normal inspection, No CVA tenderness, No vertebral tenderness Extremity Exam: normal inspection, normal range of motion Neurologic Exam: alert, 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, cooperative, normal mood/affect, sensation nml, No motor deficits Skin Exam: normal color, warm, dry, No rash Lymphatic Exam: No adenopathy SpO2: 95 Oxygen Delivery: Room Air - Course Nursing assessment & vital signs reviewed: Yes - Radiology Exams Chest X-ray Interpretation: Discussed w/ radiologist, No Pneumonia Ordered Tests: Active Orders 24 hr Category Date Time Status CHEST 2 VIEWS (PA AND LAT) Stat Exams 11/04/16 13:27 Completed Medication Summary Discontinued Medications Generic Name Dose Route Start Last Admin Trade Name [place] PRN Reason Stop Dose Admin Acetaminophen 650 mg 11/04/16 13:38 11/04/16 13:39 Tylenol 325 Mg PO 11/04/16 13:39 650 mg STAT STA Administration Acetaminophen Confirm 11/04/16 13:38 Tylenol 325 Mg Administered 11/04/16 13:39 Dose 650 mg .ROUTE .STK-MED ONE Guaifenesin/Dextromethorphan 10 ml 11/04/16 13:31 11/04/16 13:52 Robitussin-Dm Syrup PO 11/04/16 13:32 10 ml STAT ONE Administration Methylprednisolone Sodium Succinate 125 mg 11/04/16 13:27 11/04/16 13:31 Solu-Medrol 125 Mg IM 11/04/16 13:28 125 mg STAT ONE Administration Methylprednisolone Sodium Succinate Confirm 11/04/16 13:30 Solu-Medrol 125 Mg Administered 11/04/16 13:31 Dose 125 mg .ROUTE .STK-MED ONE - Progress Progress: improved Air Movement: good Progress Note: 11/04/16 13:25 Given Solumedrol and Robitussin add feels better 11/04/16 13:32 Blood Culture(s) Obtained: No Antibiotics given: No Counseled pt/family regarding: diagnosis, rad results - Departure Time of Disposition: 14:05 Departure Disposition: Home, Extended Care Facility Clinical Impression: Bronchitis Condition: Stable Critical Care Time: No Instructions: Cough -- Adult, Bronchitis Additional Instructions: Motrin or Tylenol for fever/pain. RX: ZPack, Prednisone, Robitussin AC Return for worse cough, short of breath, fever, vomiting or any problems Forms: Work/School Release Form Prescriptions: Azithromycin [Zithromax Tri-Jude] 500 mg PO DAILY #3 tablet Guaifenesin/Codeine 5 ml [Robitussin AC Syrup Unit Dose Cup] 10 ml PO Q6- 8HPRN PRN #200 ml PRN Reason: Cough Prednisone 20 mg [Deltasone 20 mg] 60 mg PO DAILY #15 tablet
[2016-11-04] MEDS ORDERED: solu-MEDROL 125 MG IM ONE (13:27)
[2016-11-04] MEDS ORDERED: solu-MEDROL 125 MG ONE (13:30)
[2016-11-04] MEDS ORDERED: Robitussin-Dm Syrup PO ONE (13:31)
[2016-11-04] MEDS ORDERED: TYLENOL 325 MG ONE (13:38)
[2016-11-04] MEDS ORDERED: TYLENOL 325 MG PO STA (13:38)
--- NOTE | 2016-11-04 13:59 | XRAY ---
Indication: Cough. Comparison: October 02, 2016. PA/lateral chest again demonstrates normal heart, lungs, and bony thorax.
[2016-11-04 14:22] VITALS: BP 92/52; PULSE 79; O2SAT 98
== END 2016-11-04 14:22 | disposition home or self-care (01) ==
LOC: ED 13:03
DX: J40 Bronchitis, not specified as acute or chronic (principal); R05 Cough; J45.909 Unspecified asthma, uncomplicated; J44.9 Chronic obstructive pulmonary disease, unspecified
CPT/HCPCS: 71020; 96372; 96374; 99283; 99284; J2930; A9270-GY

== ENCOUNTER 2016-11-22 12:43 | Emergency (ER) | payer OTHER, SELFPAY ==
[2016-11-22] MEDS ORDERED: Reglan 10 MG/2 ML IM ONE (15:08)
[2016-11-22] MEDS ORDERED: BENADRYL 25 MG CAPSULE PO ONE (15:09)
[2016-11-22] MEDS ORDERED: ZOFRAN ODT 4 MG PO ONE (15:09)
[2016-11-22] MEDS ORDERED: ZOFRAN ODT 4 MG ONE (15:23)
[2016-11-22] MEDS ORDERED: Reglan 10 MG/2 ML ONE (15:23)
[2016-11-22] MEDS ORDERED: BENADRYL 25 MG CAPSULE ONE (15:23)
[2016-11-22 15:32] VITALS: PULSE 78
--- NOTE | 2016-11-22 15:38 | XRAY ---
Indication: Headache. Multiple contiguous axial images obtained through the head without contrast. Comparison: March 28, 2016. Again normal appearing brain parenchyma, ventricles, and bony calvarium. Visualized paranasal sinuses and mastoid air cells are pneumatized and clear. Impression: Stable normal CT head without contrast exam. CTDI 68.81
--- NOTE | 2016-11-22 15:50 | ERPHSYRPT ---
- History of Present Illness Time Seen by Provider: 11/22/16 13:15 Source: patient Exam Limitations: no limitations Patient Subjective Stated Complaint: co dizziness, pt also states she feels foggy,pt is alert and oriented to name,place and birthday, states has been for a couple days, cough nonproductive, headache since this week end Triage Nursing Assessment: pt alert and oriented, resp easy, skin w/d pink, no edema noted, sob when she goes into a smoke room . pt answers question well Physician History: Multiple symptoms with initial onset headache 3 days ago .[place]O located vertex scalp is 10/10 intensity sharp. Now she feeld foggy and dizzy with nausea. Timing/Duration: day(s) (3) Quality: sharpness Head Pain Location: frontal Severity of Pain-Max: moderate Severity of Pain-Current: moderate Recent Head Trauma: no recent headache/trauma, frequent headaches, chronic headaches Associated Symptoms: dizziness, fatigue, light-headedness, nausea/vomiting, No confusion, No fever/chills Previous symptoms: same symptoms as today Allergies/Adverse Reactions: Sulfa (Sulfonamide Antibiotics) [Sulfa(Sulfonamide Antibiotics)] Allergy ( Verified 11/22/16 13:16) Rash topiramate [From Topamax] Allergy (Verified 11/22/16 13:16) confusion aspirin Adverse Reaction (Severe, Verified 11/22/16 13:16) advised not to take it d/t it will cause her to bleed Home Medications: Metformin HCl 500 mg [Glucophage 500 MG] 500 mg PO DAILY 07/14/14 [History ] Citalopram Hydrobromide 20 mg* [ceLEXa 20 MG] 20 mg PO DAILY 07/24/14 [ History] Lorazepam 0.5 mg [Ativan 0.5 MG] 0.5 mg PO BID 07/02/15 [History] Montelukast Sodium [Singulair] 10 mg PO DAILY 07/02/15 [History] Sitagliptin Phosphate [Januvia] 100 mg PO DAILY 07/08/15 [History] Famotidine 40 mg PO BID 03/09/16 [History] Metformin HCl 500 mg [Glucophage 500 MG] 250 mg PO HS 03/09/16 [History] Diphenhydramine HCl 25 mg [Benadryl 25 mg Capsule] 25 mg PO QHS 05/28/16 [ History] Folic Acid 0.8 mg PO DAILY 08/16/16 [History] Naproxen 375 mg [Naprosyn 375 mg] 375 mg PO BID 08/16/16 [History] Verapamil HCl [Verapamil ER Pm] 200 mg PO HS 08/16/16 [History] Furosemide [Lasix] 20 mg PO DAILY 09/15/16 [History] Sumatriptan Succinate [Imitrex 50 mg] 50 mg PO DAILY PRN PRN 09/15/16 [History] Levothyroxine Sodium 75 Mcg [Synthroid 75 Mcg] 75 mcg DAILY 11/04/16 [ History] Hx Tetanus, Diphtheria Vaccination/Date Given: Yes Hx Influenza Vaccination/Date Given: Yes Hx Pneumococcal Vaccination/Date Given: Yes Immunizations Up to Date: Yes - Review of Systems Constitutional: Malaise Eyes: No Symptoms Ears, Nose, & Throat: No Symptoms Respiratory: No Symptoms Cardiac: No Symptoms Abdominal/Gastrointestinal: No Symptoms Musculoskeletal: No Symptoms Skin: No Symptoms Neurological: Dizziness Psychological: No Symptoms Endocrine: No Symptoms Hematologic/Lymphatic: No Symptoms - Past Medical History Pertinent Past Medical History: Yes Neurological History: Migraines, Other ENT History: No Pertinent History Cardiac History: High Cholesterol, Hypertension, Other Respiratory History: Asthma, Bronchitis, COPD, Sleep Apnea Endocrine Medical History: Diabetes Type II, Hypothyroidism Musculoskeletal History: Other GI Medical History: No Pertinent History History: No Pertinent History Psycho-Social History: Anxiety, Depression Female Reproductive Disorders: Menstrual Problems, Other Other Medical History: ANEMIA. ITP - Past Surgical History Past Surgical History: No Neuro Surgical History: No Pertinent History Cardiac: No Pertinent History Respiratory: No Pertinent History Gastrointestinal: No Pertinent History Genitourinary: No Pertinent History Musculoskeletal: No Pertinent History Female Surgical History: No Pertinent History - Social History Smoking Status: Never smoker Exposure to second hand smoke: Yes Alcohol Use: None Drug Use: none Patient Lives Alone: No Significant Family History: no pertinent family hx - Female History Hx Last Menstrual Period: week ago Hx Now: No - Nursing Vital Signs Nursing Vital Signs: Initial Vital Signs Temperature 98.2 F Temperature Source Oral Pulse Rate 78 Respiratory Rate 18 Blood Pressure [Left Thigh] 121/70 Pain Intensity 0 - Physical Exam General Appearance: mild distress Eye Exam: PERRL/EOMI, eyes nml inspection Ears, Nose, Throat Exam: normal ENT inspection, pharynx normal Neck Exam: normal inspection, non-tender, supple, full range of motion Respiratory Exam: normal breath sounds, lungs clear Cardiovascular Exam: regular rate/rhythm Gastrointestinal/Abdominal Exam: soft, normal bowel sounds Back Exam: normal inspection Extremity Exam: normal inspection, normal range of motion, pelvis stable Mental Status Exam: alert, 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 targeteer Exam: normal hearing, normal speech, PERRL Coordination/Gait Exam: normal gait Motor/Sensory Exam: no motor deficit, no sensory deficit SpO2: 97 Oxygen Delivery: Room Air - CT Exams Head CT Interpretation: Negative, Tele-radiologist Report Ordered Tests: Active Orders 24 hr Category Date Time Status HEAD WITHOUT CONTRAST [CT] Stat Exams 11/22/16 15:07 Completed Medication Summary Discontinued Medications Generic Name Dose Route Start Last Admin Trade Name Freq PRN Reason Stop Dose Admin Diphenhydramine HCl 25 mg 11/22/16 15:09 11/22/16 15:25 Benadryl 25 Mg Capsule PO 11/22/16 15:10 25 mg STAT ONE Administration Diphenhydramine HCl Confirm 11/22/16 15:23 Benadryl 25 Mg Capsule Administered 11/22/16 15:24 Dose 25 mg .ROUTE .STK-MED ONE Metoclopramide HCl 10 mg 11/22/16 15:08 11/22/16 15:25 Reglan 10 Mg/2 Ml IM 11/22/16 15:09 10 mg STAT ONE Administration Metoclopramide HCl Confirm 11/22/16 15:23 Reglan 10 Mg/2 Ml Administered 11/22/16 15:24 Dose 10 mg .ROUTE .STK-MED ONE Ondansetron HCl 4 mg 11/22/16 15:09 11/22/16 15:25 Zofran Odt 4 Mg PO 11/22/16 15:10 4 mg STAT ONE Administration Ondansetron HCl Confirm 11/22/16 15:23 Zofran Odt 4 Mg Administered 11/22/16 15:24 Dose 4 mg .ROUTE .STK-MED ONE - Progress Progress: improved Air Movement: good Blood Culture(s) Obtained: No Antibiotics given: No Counseled pt/family regarding: lab results, diagnosis, need for follow-up, rad results - Departure Time of Disposition: 15:45 Departure Disposition: Home Clinical Impression: Headache Qualifiers: Headache type: tension-type Headache chronicity pattern: chronic headache Intractability: intractable Qualified Code(s): G44.221 - Chronic tension-type headache, intractable Condition: Stable Critical Care Time: No
[2016-11-22 16:17] VITALS: BP 141/67; O2SAT 98
== END 2016-11-22 16:38 | disposition home or self-care (01) ==
LOC: ED 12:43
DX: G44.221 Chronic tension-type headache, intractable (principal); R42 Dizziness and giddiness; R11.0 Nausea; E11.9 Type 2 diabetes mellitus without complications; E78.00 Pure hypercholesterolemia, unspecified; I10 Essential (primary) hypertension; E03.9 Hypothyroidism, unspecified; Z79.84 Long term (current) use of oral hypoglycemic drugs; Z79.4 Long term (current) use of insulin; Z79.899 Other long term (current) drug therapy
CPT/HCPCS: 70450; 96372; 99284; Q0162; A9270-GY

== ENCOUNTER 2016-12-03 20:24 | Emergency (ER) | payer OTHER, SELFPAY ==
[2016-12-03] MEDS ORDERED: NORCO 5/325 MG PO ONE ×2 (20:37→21:19)
--- NOTE | 2016-12-03 20:42 | ERPHSYRPT ---
- History of Present Illness Time Seen by Provider: 12/03/16 20:33 Source: patient Exam Limitations: no limitations Physician History: FOR THE PAST 3 DAYS PT HAS HAD ACHY RIGHT ANKLE PAIN WITH NO RECENT INJURY AND NO NUMBNESS OF THE RIGHT TOES. Allergies/Adverse Reactions: Sulfa (Sulfonamide Antibiotics) [Sulfa(Sulfonamide Antibiotics)] Allergy ( Verified 12/03/16 20:29) Rash topiramate [From Topamax] Allergy (Verified 12/03/16 20:29) confusion aspirin Adverse Reaction (Severe, Verified 12/03/16 20:29) advised not to take it d/t it will cause her to bleed Home Medications: Metformin HCl 500 mg [Glucophage 500 MG] 500 mg PO DAILY 07/14/14 [History ] Citalopram Hydrobromide 20 mg* [ceLEXa 20 MG] 20 mg PO DAILY 07/24/14 [ History] Lorazepam 0.5 mg [Ativan 0.5 MG] 0.5 mg PO BID 07/02/15 [History] Montelukast Sodium [Singulair] 10 mg PO DAILY 07/02/15 [History] Sitagliptin Phosphate [Januvia] 100 mg PO DAILY 07/08/15 [History] Famotidine 40 mg PO BID 03/09/16 [History] Metformin HCl 500 mg [Glucophage 500 MG] 250 mg PO HS 03/09/16 [History] Diphenhydramine HCl 25 mg [Benadryl 25 mg Capsule] 25 mg PO QHS 05/28/16 [ History] Folic Acid 0.8 mg PO DAILY 08/16/16 [History] Naproxen 375 mg [Naprosyn 375 mg] 375 mg PO BID 08/16/16 [History] Verapamil HCl [Verapamil ER Pm] 200 mg PO HS 08/16/16 [History] Furosemide [Lasix] 20 mg PO DAILY 09/15/16 [History] Sumatriptan Succinate [Imitrex 50 mg] 50 mg PO DAILY PRN PRN 09/15/16 [History] Levothyroxine Sodium 75 Mcg [Synthroid 75 Mcg] 75 mcg DAILY 11/04/16 [ History] Hx Tetanus, Diphtheria Vaccination/Date Given: Yes Hx Influenza Vaccination/Date Given: Yes Hx Pneumococcal Vaccination/Date Given: Yes - Review of Systems Musculoskeletal: Joint Pain (RIGHT ANKLE PAIN) - Past Medical History Pertinent Past Medical History: Yes Neurological History: Migraines, Other ENT History: No Pertinent History Cardiac History: High Cholesterol, Hypertension, Other Respiratory History: Asthma, Bronchitis, COPD, Sleep Apnea Endocrine Medical History: Diabetes Type II, Hypothyroidism Musculoskeletal History: Other GI Medical History: No Pertinent History History: No Pertinent History Psycho-Social History: Anxiety, Depression Female Reproductive Disorders: Menstrual Problems, Other Other Medical History: ANEMIA. ITP - Past Surgical History Past Surgical History: No Neuro Surgical History: No Pertinent History Cardiac: No Pertinent History Respiratory: No Pertinent History Gastrointestinal: No Pertinent History Genitourinary: No Pertinent History Musculoskeletal: No Pertinent History Female Surgical History: No Pertinent History - Social History Smoking Status: Never smoker Exposure to second hand smoke: Yes Alcohol Use: None Drug Use: none Patient Lives Alone: No Significant Family History: no pertinent family hx - Female History Hx Now: No - Nursing Vital Signs Nursing Vital Signs: Initial Vital Signs Temperature 98.5 F Temperature Source Oral Pulse Rate 95 Respiratory Rate 18 Blood Pressure [Right Arm] 139/62 Pain Intensity 6 - Physical Exam General Appearance: alert Hips Exam: right: normal range of motion Legs Exam: right leg: normal range of motion Knees Exam: right knee: normal range of motion Ankle Exam: right ankle: normal range of motion, soft tissue tenderness (MILD TENDERNESS OF THE MEDIAL ASPECT OF THE RIGHT ANKLE WITHOUT ERYTHEMA OR EDEMA.) Foot Exam: right foot: normal range of motion Neuro/Tendon Exam: normal sensation, normal motor functions, normal tendon functions Mental Status Exam: alert, cooperative Skin Exam: warm, dry - Course Nursing assessment & vital signs reviewed: Yes - Radiology Exams Right Ankle X-ray Interpretation: Discussed w/ radiologist (STABLE NON-ACUTE RIGHT ANKLE WITH CHRONIC FINDINGS COMPARED TO 01/12/16.) Ordered Tests: Active Orders 24 hr Category Date Time Status Luke Bandage Application -[facility] STAT Care 12/03/16 20:37 Active Crutches STAT Care 12/03/16 20:37 Active ANKLE (3 VIEWS) Stat Exams 12/03/16 20:38 Taken Medication Summary Discontinued Medications Generic Name Dose Route Start Last Admin Trade Name Freq PRN Reason Stop Dose Admin Hydrocodone Bitart/Acetaminophen 2 tab 12/03/16 20:37 12/03/16 20:49 [place] 5/325 Mg PO 12/03/16 20:38 2 tab STAT ONE Administration Hydrocodone Bitart/Acetaminophen Confirm 12/03/16 20:49 [place] 5/325 Mg Administered 12/03/16 20:50 Dose 2 tab .ROUTE .STK-MED ONE - Departure Time of Disposition: 21:19 Departure Disposition: Home Clinical Impression: RIGHT ANKLE SPRAIN Condition: Fair Critical Care Time: No Instructions: Ankle Sprain Additional Instructions: FOLLOW UP WITH PRIVATE DOCTOR TOMORROW. ELEVATE RIGHT ANKLE ABOVE HEART LEVEL FOR 24 HOURS. LUKE WRAP TO RIGHT ANKLE FOR 4 DAYS. NO WEIGHT BEARING ON RIGHT ANKLE FOR 4 DAYS. USE CRUTCHES FOR 2 WEEKS. Prescriptions: Acetaminophen 650 mg PO Q4H PRN PRN #30 tablet PRN Reason: Pain
[2016-12-03] MEDS ORDERED: NORCO 5/325 MG ONE ×2 (20:49→21:21)
[2016-12-03 21:33] VITALS: BP 124/73; PULSE 79; O2SAT 100
--- NOTE | 2016-12-04 07:55 | XRAY ---
Indication: Medial ankle pain. Comparison: January 12, 2016. 3 views of the right ankle unchanged again demonstrating moderate plantar/posterior heel spurs with stable cuboid accessory ossicle and well-circumscribed round ossifications adjacent to the tip of the medial/lateral malleolus either developmental versus sequela to old injury. No new/acute findings.
== END 2016-12-03 21:32 | disposition home or self-care (01) ==
LOC: ED 20:24
DX: S93.401A Sprain of unspecified ligament of right ankle, initial encounter (principal)
CPT/HCPCS: 73610; 99284; A9270-GY

== ENCOUNTER 2016-12-08 12:33 | Emergency (ER) | payer OTHER, SELFPAY ==
[2016-12-08] MEDS ORDERED: PROVENTIL 2.5 MG/3 ML NEB IH ONE ×2 (13:12→13:23)
[2016-12-08] MEDS ORDERED: MORPHINE SULFATE 4 MG INJ IV ONE (13:13)
--- NOTE | 2016-12-08 13:17 | ERPHSYRPT ---
- History of Present Illness Time Seen by Provider: 12/08/16 13:11 Source: patient Exam Limitations: no limitations Patient Subjective Stated Complaint: ems states pt called 911 due to an asthma attack. pt states she became sob with wheezing at home. ems states they gave 125mg solumedrol, a duo gisel and 4mg zofran. Triage Nursing Assessment: pt pink, warm, dry. lung sounds clear and equal. breathing wnl. Physician History: This is a 36-year-old morbidly obese white female with history of migraines, diabetes, hypothyroidism, bronchitis, asthma She arrives with complaint of shortness of breath, and pain with breathing in the left anterior chest described as a aching onset since 1120 this afternoon She was given breathing treatments 2 Solu-Medrol and Zofran prior to arrival she states she is feeling better Patient does have a history of recent of her brother yesterday. Past medical history includes migraines, diabetes, hypothyroidism, asthma, bronchitis. Timing/Duration: today (1120 this morning) Activities at Onset: rest Severity of Dyspnea-Max: moderate Severity of Dyspnea-Current: mild Possible Cause: occasional episodes Modifying Factors: Improves With: other (patient received DuoNeb treatment and Solu-Medrol prior to arrival) Associated Symptoms: wheezing, painful breathing, No constant, No intermittent, No anxiety, No cough, No chest pain/discomfort, No edema, No fever, No insomnia , No loss of appetite, No lightheadedness, No weakness, No ankle swelling, No chills, No hemoptysis, No calf pain, No dizziness, No heaviness, No heart racing , No lightheadedness, No leg swelling, No muscle spasms feet, No muscle spasms hands, No productive cough, No sweating, No tightness (We need to get them. The ) International travel in last 2 weeks: No Allergies/Adverse Reactions: Sulfa (Sulfonamide Antibiotics) [Sulfa(Sulfonamide Antibiotics)] Allergy ( Verified 12/08/16 12:41) Rash topiramate [From Topamax] Allergy (Verified 12/08/16 12:41) confusion aspirin Adverse Reaction (Severe, Verified 12/08/16 12:41) advised not to take it d/t it will cause her to bleed Home Medications: Metformin HCl 500 mg [Glucophage 500 MG] 500 mg PO DAILY 07/14/14 [History ] Citalopram Hydrobromide 20 mg* [ceLEXa 20 MG] 20 mg PO DAILY 07/24/14 [ History] Lorazepam 0.5 mg [Ativan 0.5 MG] 0.5 mg PO BID 07/02/15 [History] Montelukast Sodium [Singulair] 10 mg PO DAILY 07/02/15 [History] Sitagliptin Phosphate [Januvia] 100 mg PO DAILY 07/08/15 [History] Famotidine 40 mg PO BID 03/09/16 [History] Metformin HCl 500 mg [Glucophage 500 MG] 250 mg PO HS 03/09/16 [History] Diphenhydramine HCl 25 mg [Benadryl 25 mg Capsule] 25 mg PO QHS 05/28/16 [ History] Folic Acid 0.8 mg PO DAILY 08/16/16 [History] Naproxen 375 mg [Naprosyn 375 mg] 375 mg PO BID 08/16/16 [History] Verapamil HCl [Verapamil ER Pm] 200 mg PO HS 08/16/16 [History] Furosemide [Lasix] 20 mg PO DAILY 09/15/16 [History] Sumatriptan Succinate [Imitrex 50 mg] 50 mg PO DAILY PRN PRN 09/15/16 [History] Levothyroxine Sodium 75 Mcg [Synthroid 75 Mcg] 75 mcg DAILY 11/04/16 [ History] Hx Tetanus, Diphtheria Vaccination/Date Given: Yes (up to date) Hx Influenza Vaccination/Date Given: Yes Hx Pneumococcal Vaccination/Date Given: No Immunizations Up to Date: Yes - Review of Systems Constitutional: No Fever, No Chills Eyes: No Symptoms Ears, Nose, & Throat: No Symptoms Respiratory: Dyspnea, Wheezing Cardiac: Chest Pain (pain with breathing anterior chest) Abdominal/Gastrointestinal: No Abdominal Pain, No Nausea, No Vomiting, No Diarrhea Genitourinary Symptoms: No Dysuria Musculoskeletal: No Back Pain, No Neck Pain Skin: No Rash Neurological: No Dizziness, No Focal Weakness, No Sensory Changes Psychological: Other (patient with recent loss of her brother) Endocrine: No Symptoms All Other Systems: Reviewed and Negative - Past Medical History Pertinent Past Medical History: Yes Neurological History: Migraines, Other ENT History: No Pertinent History Cardiac History: High Cholesterol, Hypertension, Other Respiratory History: Asthma, Bronchitis, COPD, Sleep Apnea Endocrine Medical History: Diabetes Type II, Hypothyroidism Musculoskeletal History: Other GI Medical History: No Pertinent History History: No Pertinent History Psycho-Social History: Anxiety, Depression Female Reproductive Disorders: Menstrual Problems, Other Other Medical History: ANEMIA. ITP - Past Surgical History Past Surgical History: No Neuro Surgical History: No Pertinent History Cardiac: No Pertinent History Respiratory: No Pertinent History Gastrointestinal: No Pertinent History Genitourinary: No Pertinent History Musculoskeletal: No Pertinent History Female Surgical History: No Pertinent History - Social History Smoking Status: Never smoker Exposure to second hand smoke: Yes Alcohol Use: None Drug Use: none Patient Lives Alone: No Significant Family History: no pertinent family hx - Female History Hx Last Menstrual Period: end october 2016 Hx Now: No - Nursing Vital Signs Nursing Vital Signs: Initial Vital Signs Temperature 98.7 F Temperature Source Oral Pulse Rate 84 Respiratory Rate 16 Blood Pressure [] 92/46 Pain Intensity 0 - Physical Exam General Appearance: mild distress Eye Exam: PERRL/EOMI Neck Exam: normal inspection, supple Respiratory Exam: rhonchi (occasional rhonchi), wheezing (few scattered wheezes) Cardiovascular/Chest Exam: normal heart sounds, regular rate/rhythm Abdominal/Gastrointestinal Exam: soft, No tenderness, No distention, No mass Neurologic Exam: alert, 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, cooperative, lithograph printer II-XII nml as tested, sensation nml, No motor deficits Skin Exam: normal color, warm, No dry SpO2 Interpretation: normal (this96%) SpO2: 96 Oxygen Delivery: Room Air - Course Nursing assessment & vital signs reviewed: Yes EKG Interpreted by Me: RATE (85 bpm), Sinus Rhythm, NORMAL AXIS, Other (EKG: Sinus rhythm, 85 bpm, normal axis, no acute ST or T wave changes noted) - Radiology Exams Chest X-ray Interpretation: Discussed w/ radiologist, Other (chest x-ray: No acute cardiopulmonary processes noted) Ordered Tests: Active Orders 24 hr Category Date Time Status Bakelite Molder STAT Care 12/08/16 13:12 Active EKG-ER Only STAT Care 12/08/16 13:12 Active IV Insertion STAT Care 12/08/16 13:12 Active CHEST 1 VIEW (PORTABLE) Stat Exams 12/08/16 13:12 Completed CBC W DIFF Stat Lab 12/08/16 13:30 Completed CMP Stat Lab 12/08/16 13:30 Completed Manual Differential NC Stat Lab 12/08/16 13:30 Completed TROPONIN Stat Lab 12/08/16 13:30 Completed Respiratory Nebulizer STAT RT 12/08/16 13:13 Completed Medication Summary Discontinued Medications Generic Name Dose Route Start Last Admin Trade Name [place] PRN Reason Stop Dose Admin Albuterol Sulfate 2.5 mg 12/08/16 13:12 12/08/16 13:25 Proventil 2.5 Mg/3 Ml Neb IH 12/08/16 13:13 2.5 mg STAT ONE Administration Albuterol Sulfate Confirm 12/08/16 13:23 Proventil 2.5 Mg/3 Ml Neb Administered 12/08/16 13:24 Dose 2.5 mg IH .STK-MED ONE Morphine Sulfate 4 mg 12/08/16 13:13 12/08/16 13:25 Morphine Sulfate 4 Mg Inj IV 12/08/16 13:14 4 mg STAT ONE Administration Morphine Sulfate Confirm 12/08/16 13:22 Morphine Sulfate 4 Mg Inj Administered 12/08/16 13:23 Dose 4 mg .ROUTE .STK-MED ONE Lab/Rad Data: Laboratory Result Diagrams 12/08/16 13:30 12/08/16 13:30 Laboratory Results 12/08/16 12/08/16 Range/Units 13:30 13:30 WBC 6.7 (4.0-10.5) K/mm3 RBC 3.67 L (4.1-5.4) M/mm3 Hgb 10.0 L (12.0-16.0) gm/dl Hct 31.7 L (35-47) % MCV 86.4 (78-100) fl MCH 27.2 (26-32) pg MCHC 31.5 L (32-36) g/dl RDW 14.7 H (11.5-14.0) % Plt Count 240 (150-450) K/mm3 MPV 9.8 H (6-9.5) fl Gran % 72.0 H (36.0-66.0) % Lymphocytes % 20.0 L (24.0-44.0) % Monocytes % 5.9 (0.0-12.0) % Eosinophils % 1.8 (0.00-5.0) % Basophils % 0.3 (0.0-0.4) % Segmented Neutrophils 65 (36.0-66.0) % Band Neutrophils 3 H (0.0-2.0) % Lymphocytes (Manual) 27 (24-44) % Monocytes (Manual) 4 (0.0-12.0) % Eosinophils (Manual) 1 (0.00-3.0) % Basophils # 0.02 (0-0.4) Differential Comment NORMAL Platelet Estimate NORMAL (NORMAL) Sodium 142 (136-145) mEq/L Potassium 3.8 (3.5-5.1) mEq/L Chloride 108 H (98-107) mEq/L Carbon Dioxide 26.0 (21-32) mEq/L Anion Gap 11.7 (5-15) MEQ/L BUN 19 (9-20) mg/dL Creatinine 0.79 (0.55-1.30) mg/dl Estimated GFR > 60 ML/MIN Glucose 178 H (70-110) MG/DL Calcium 8.2 L (8.5-10.1) mg/dL Total Bilirubin 0.20 (0.2-1.0) mg/dL AST 20 (15-37) U/L ALT 35 (12-78) U/L Alkaline Phosphatase 109 (46-116) U/L Troponin I < 0.017 (0.000-0.056) ng/ml Serum Total Protein 6.4 (6.4-8.2) gm/dL Albumin 3.3 L (3.4-5.0) g/dL - Progress Progress: improved Air Movement: fair Progress Note: 12/08/16 15:03 Patient markedly improved feeling much better lungs are clear. Will discharge with Zithromax, tapering prednisone. Patient has been warned to keep an eye on her blood sugars. Patient has albuterol inhalers at home. Patient states she is planning to see his therapist to help her deal with the loss of her brother she denies any suicidal or homicidal ideation. Will discharge 12/08/16 15:12 Patient's blood pressure 92/46 vitals are stable she is in no distress Will go ahead and discharge - Departure Time of Disposition: 15:04 Departure Disposition: Home Clinical Impression: COPD with exacerbation, Grief reaction Condition: Fair Critical Care Time: No Referrals: TIM MAGUIRE MD [Primary Care Provider] - Instructions: Chronic Obstructive Pulmonary Disease Additional Instructions: Return home. Continue your nebulizers as prescribed by your family doctor. Zithromax Z-ROSLYN as directed. Tapering dose of prednisone as directed follow-up with your family doctor. Follow-up with your counselor. Return for acute distress or for severe symptoms. Prescriptions: Azithromycin 250 mg [Zithromax 250 MG TABLET] 0 mg PO ZPACK #6 tablet
[2016-12-08] MEDS ORDERED: MORPHINE SULFATE 4 MG INJ ONE (13:22)
[2016-12-08 13:53] LABS: BASOPHIL % 0.3 % (0.0-0.4); Eosinophil % 1.8 % (0.00-5.0); Mean Cell Volume 86.4 fl (78-100); Mean Corpuscular Hemoglobin 27.2 pg (26-32); Mean Platelet Volume 9.8 fl (6-9.5); Monocytes % 5.9 % (0.0-12.0); Platelet Count 240 K/mm3 (150-450); Red Blood Count 3.67 M/mm3 (4.1-5.4); Red Cell Distribution Width 14.7 % (11.5-14.0); White Blood Count 6.7 K/mm3 (4.0-10.5)
[2016-12-08 14:07] LABS: ALBUMIN 3.3 g/dL (3.4-5.0); ALKALINE PHOSPHATASE 109 U/L (46-116); ANION GAP 11.7 MEQ/L (5-15); BLOOD UREA NITROGEN 19 mg/dL (9-20); CHLORIDE 108 mEq/L (98-107); Glucose 178 MG/DL (70-110); Potassium 3.8 mEq/L (3.5-5.1); SGOT/AST 20 U/L (15-37); SGPT/ALT 35 U/L (12-78); SODIUM 142 mEq/L (136-145); Total Protein 6.4 gm/dL (6.4-8.2)
[2016-12-08 14:09] LABS: TROPONIN < 0.017 ng/ml (0.000-0.056)
--- NOTE | 2016-12-08 14:16 | XRAY ---
Exam: AP upright portable chest film from 1320 hrs. on 12/08/2016. Comparison: Two-view chest from 11/04/2016. Indication: Shortness of breath. Findings: The film was obtained in a lordotic projection. The transverse heart size appears within normal limits for this portable technique. The nnacy and mediastinal structures appear unremarkable. Some subtle linear artifact overlies the lower chest. The lungs are well expanded. No air space infiltrates, vascular congestion, pneumothorax, or pleural fluid is seen. Abundant soft tissues are evident. Impression: 1. No acute cardiopulmonary disease is seen. The findings are unchanged from 11/04/2016.
[2016-12-08 15:05] LABS: BAND 3 % (0.0-2.0); Eosinophil 1 % (0.00-3.0); Total Cells Counted 100
[2016-12-08 15:06] LABS: Platelet Estimate NORMAL (NORMAL)
[2016-12-08 15:08] VITALS: O2SAT 96
[2016-12-08 15:10] VITALS: BP 92/46; PULSE 84
== END 2016-12-08 15:19 | disposition home or self-care (01) ==
LOC: ED 12:33
DX: J44.1 Chronic obstructive pulmonary disease with (acute) exacerbation (principal); F43.20 Adjustment disorder, unspecified
CPT/HCPCS: 36000; 36415; 71010; 80053; 84484; 85025; 93005; 93041; 94640; 96374; 99282; 99284; J2270; A9270-GY

== ENCOUNTER 2017-03-25 18:28 | Emergency (ER) | payer OTHER, SELFPAY ==
[2017-03-25] MEDS ORDERED: TORAdol 30 mg Injection IM ONE (19:42)
[2017-03-25] MEDS ORDERED: Norflex 60 MG/2 ML IM ONE (19:43)
--- NOTE | 2017-03-25 19:46 | ERPHSYRPT ---
- History of Present Illness Time Seen by Provider: 03/25/17 20:21 Patient Subjective Stated Complaint: pt states she has had a migraine all day. states she took her meds with no relief. c/o sensitivity to light and sound. states she has been nauseated and vomiting today. Triage Nursing Assessment: pt alert and oriented, asnwers questions approp. pt ambulatory with steady gait noted. respirations nonlabored with lungs cta. bilat upper and lowr ext srtrength wnl. pupils equal and reactive. Physician History: 36-year-old female came to the emergency room with complaining of frontal headache, for last 1 day. She took Imitrex but without any relief. She is complaining of photosensitivity and also complaining of some nausea. Timing/Duration: today Quality: aching, throbbing Head Pain Location: frontal Severity of Pain-Max: moderate Severity of Pain-Current: severe Recent Head Trauma: frequent headaches Modifying Factors: Improves With: exposure to light Associated Symptoms: nausea/vomiting, sensitive to light Previous symptoms: same symptoms as today Allergies/Adverse Reactions: Sulfa (Sulfonamide Antibiotics) [Sulfa(Sulfonamide Antibiotics)] Allergy ( Verified 03/25/17 19:25) Rash topiramate [From Topamax] Allergy (Verified 03/25/17 19:25) confusion aspirin Adverse Reaction (Severe, Verified 03/25/17 19:25) advised not to take it d/t it will cause her to bleed Home Medications: Metformin HCl 500 mg [Glucophage 500 MG] 500 mg PO DAILY 07/14/14 [History ] Citalopram Hydrobromide 20 mg* [ceLEXa 20 MG] 20 mg PO DAILY 07/24/14 [ History] Lorazepam 0.5 mg [Ativan 0.5 MG] 0.5 mg PO BID 07/02/15 [History] Montelukast Sodium [Singulair] 10 mg PO DAILY 07/02/15 [History] Sitagliptin Phosphate [Januvia] 100 mg PO DAILY 07/08/15 [History] Famotidine 40 mg PO BID 03/09/16 [History] Metformin HCl 500 mg [Glucophage 500 MG] 250 mg PO HS 03/09/16 [History] Diphenhydramine HCl 25 mg [Benadryl 25 mg Capsule] 25 mg PO QHS 05/28/16 [ History] Folic Acid 0.8 mg PO DAILY 08/16/16 [History] Naproxen 375 mg [Naprosyn 375 mg] 375 mg PO BID 08/16/16 [History] Verapamil HCl [Verapamil ER Pm] 200 mg PO HS 08/16/16 [History] Furosemide [Lasix] 20 mg PO DAILY 09/15/16 [History] Sumatriptan Succinate [Imitrex 50 mg] 50 mg PO DAILY PRN PRN 09/15/16 [History] Levothyroxine Sodium 75 Mcg [Synthroid 75 Mcg] 75 mcg DAILY 11/04/16 [ History] Hx Tetanus, Diphtheria Vaccination/Date Given: Yes (up to date) Hx Influenza Vaccination/Date Given: No Hx Pneumococcal Vaccination/Date Given: No Immunizations Up to Date: Yes - Review of Systems Constitutional: No Fever, No Chills Eyes: No Symptoms Ears, Nose, & Throat: No Symptoms Respiratory: No Cough, No Dyspnea Cardiac: No Chest Pain, No Edema, No Syncope Abdominal/Gastrointestinal: No Abdominal Pain, No Nausea, No Vomiting, No Diarrhea Genitourinary Symptoms: No Dysuria Musculoskeletal: No Back Pain, No Neck Pain Skin: No Rash Neurological: Headache, No Dizziness, No Focal Weakness, No Sensory Changes Psychological: No Symptoms Endocrine: No Symptoms All Other Systems: Reviewed and Negative - Past Medical History Pertinent Past Medical History: Yes Neurological History: Migraines, Other ENT History: No Pertinent History Cardiac History: High Cholesterol, Hypertension, Other Respiratory History: Asthma, Bronchitis, COPD, Sleep Apnea Endocrine Medical History: Diabetes Type II, Hypothyroidism Musculoskeletal History: Other GI Medical History: No Pertinent History History: No Pertinent History Psycho-Social History: Anxiety, Depression Female Reproductive Disorders: Menstrual Problems, Other Other Medical History: ANEMIA. ITP - Past Surgical History Past Surgical History: No Neuro Surgical History: No Pertinent History Cardiac: No Pertinent History Respiratory: No Pertinent History Gastrointestinal: No Pertinent History Genitourinary: No Pertinent History Musculoskeletal: No Pertinent History Female Surgical History: No Pertinent History - Social History Smoking Status: Never smoker Exposure to second hand smoke: Yes Alcohol Use: None Drug Use: none Patient Lives Alone: No Significant Family History: no pertinent family hx - Female History Hx Last Menstrual Period: 1 week ago Hx Now: No - Nursing Vital Signs Nursing Vital Signs: Initial Vital Signs Temperature 98.3 F 03/25/17 19:17 Pulse Rate 88 03/25/17 19:17 Respiratory Rate 18 03/25/17 19:17 Blood Pressure 133/66 03/25/17 19:17 O2 Sat by Pulse Oximetry 97 03/25/17 19:17 Pain Scale Pain Intensity 9 - Physical Exam General Appearance: no apparent distress Eye Exam: PERRL/EOMI Ears, Nose, Throat Exam: normal ENT inspection, moist mucous membranes Neck Exam: normal inspection, supple, full range of motion, No meningismus Respiratory Exam: normal breath sounds, lungs clear Cardiovascular Exam: regular rate/rhythm, normal heart sounds Gastrointestinal/Abdominal Exam: soft, No tenderness, No distention Back Exam: normal inspection, normal range of motion Mental Status Exam: alert, 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, 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 Exam: normal speech, PERRL, No facial droop Coordination/Gait Exam: normal cerebellar function Motor/Sensory Exam: no motor deficit, no sensory deficit Skin Exam: normal color, warm, dry, No rash SpO2: 97 Oxygen Delivery: Room Air - Course Nursing assessment & vital signs reviewed: Yes Ordered Tests: Medication Summary Discontinued Medications Generic Name Dose Route Start Last Admin Trade Name Paxton PRN Reason Stop Dose Admin Ketorolac Tromethamine 60 mg 03/25/17 19:42 03/25/17 19:56 Toradol 30 Mg Injection IM 03/25/17 19:43 60 mg STAT ONE Administration Ketorolac Tromethamine Confirm 03/25/17 19:51 Toradol 30 Mg Injection Administered 03/25/17 19:52 Dose 60 mg .ROUTE .STK-MED ONE Orphenadrine Citrate 60 mg 03/25/17 19:43 03/25/17 19:56 Norflex 60 Mg/2 Ml IM 03/25/17 19:44 60 mg STAT ONE Administration Orphenadrine Citrate Confirm 03/25/17 19:51 Norflex 60 Mg/2 Ml Administered 03/25/17 19:52 Dose 60 mg .ROUTE .STK-MED ONE - Progress Progress: improved Counseled pt/family regarding: diagnosis, need for follow-up - Departure Time of Disposition: 20:21 Departure Disposition: Home Clinical Impression: Migraine Qualifiers: Migraine type: with aura Status migrainosus presence: without status migrainosus Intractability: intractable Qualified Code(s): G43.119 - Migraine with aura, intractable, without status migrainosus Condition: Stable Critical Care Time: No Referrals: TIM MAGUIRE MD [Primary Care Provider] - Instructions: Headache, Migraine Additional Instructions: HEADACHE 1. After discharge from the emergency department, you should rest at home in a cool, dark, quiet place for 12-24 hours. 2. If any of the following signs or symptoms are noticed, you should be re- evaluated right away: A. Visual changes B. Stiff Neck C. Change in quality or location of pain D. Fever E. Recurrent vomiting 3. If pain medications were prescribed or given, they may cause drowsiness.
[2017-03-25] MEDS ORDERED: Norflex 60 MG/2 ML ONE (19:51)
[2017-03-25] MEDS ORDERED: TORAdol 30 mg Injection ONE (19:51)
[2017-03-25 20:22] VITALS: BP 118/63; PULSE 64
[2017-03-25 20:23] VITALS: O2SAT 97
== END 2017-03-25 20:35 | disposition home or self-care (01) ==
LOC: ED 18:28
DX: G43.119 Migraine with aura, intractable, without status migrainosus (principal); R11.2 Nausea with vomiting, unspecified; Z79.899 Other long term (current) drug therapy; Z79.84 Long term (current) use of oral hypoglycemic drugs
CPT/HCPCS: 96372; 99284; J1885; J2360

== ENCOUNTER 2017-08-28 13:13 | Observation (INO) | payer OTHER, SELFPAY ==
[2017-08-28] MEDS ORDERED: BABY ASPIRIN 81 MG CHEW PO ONE (13:36)
[2017-08-28] MEDS ORDERED: NITRO-BID 2% UD PACKETS TOP ONE (13:36)
[2017-08-28] MEDS ORDERED: Pepcid 20 MG VIAL IV ONE ×2 (13:36→13:43)
[2017-08-28] MEDS ORDERED: ATARAX 25 MG PO ONE (13:37)
[2017-08-28] MEDS ORDERED: BABY ASPIRIN 81 MG CHEW ONE (13:42)
[2017-08-28 13:43] LABS: BASOPHIL % 0.2 % (0.0-0.4); Basophil (Absolute #) 0.02 (0-0.4); Eosinophil % 1.2 % (0.00-5.0); Eosinophil (Absolute #) 0.12 (0-0.5); Granulocyte Absolute (ANC) 7.12 (1.4-6.9); Granulocytes % 73.7 % (36.0-66.0); Hemoglobin 10.4 gm/dl (12.0-16.0); Lymphocyte (Absolute #) 1.87 (1.0-4.6); Lymphocytes % 19.4 % (24.0-44.0); Mean Cell Volume 84.2 fl (78-100); Mean Corpuscular Hemoglobin 26.5 pg (26-32); Mean Corpuscular Hgb Concent. 31.5 g/dl (32-36); Mean Platelet Volume 9.6 fl (6-9.5); Monocyte (Absolute #) 0.53 (0.0-1.3); Monocytes % 5.5 % (0.0-12.0); Platelet Count 290 K/mm3 (150-450); Red Blood Count 3.92 M/mm3 (4.1-5.4); Red Cell Distribution Width 14.6 % (11.5-14.0); White Blood Count 9.7 K/mm3 (4.0-10.5)
[2017-08-28] MEDS ORDERED: ATARAX 25 MG ONE (13:43)
[2017-08-28] MEDS ORDERED: NITRO-BID 2% UD PACKETS ONE (13:43)
--- NOTE | 2017-08-28 13:47 | ERPHSYRPT ---
- History of Present Illness Time Seen by Provider: 08/28/17 13:27 Historian: patient, family (mother) Patient Subjective Stated Complaint: chest pain started at noon today while at work. also having palpitations. Triage Nursing Assessment: ambulated to room per self. skin w/d, color normal, resp nonlabored. Physician History: CC: chest pain Hx: 37 y/o patient of Dr Diaz. She has hx of afib but no CAD. She is on xarelto. Hx of ITP and asthma. She felt bad yesterday. Has some dizziness and feels malaise. No fever, chills, cough. 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 She took two NTG with some easing and came to ER. Continues to have some lower chest pains. Not short of breath. Some nausea. LMP 2 weeks ago. Timing/Duration: today Nitro Today/Relief: 0.4 mg x 2, mild relief Aspirin Treatment Today: no aspirin today (ITP= pt declines) Allergies/Adverse Reactions: Sulfa (Sulfonamide Antibiotics) [Sulfa(Sulfonamide Antibiotics)] Allergy ( Verified 08/28/17 13:35) Rash topiramate [From Topamax] Allergy (Verified 08/28/17 13:35) confusion aspirin Adverse Reaction (Severe, Verified 08/28/17 13:35) advised not to take it d/t it will cause her to bleed Home Medications: Metformin HCl 500 mg [Glucophage 500 MG] 500 mg PO DAILY 07/14/14 [History ] Citalopram Hydrobromide 20 mg* [ceLEXa 20 MG] 20 mg PO DAILY 07/24/14 [ History] Lorazepam 0.5 mg [Ativan 0.5 MG] 0.5 mg PO TID 07/02/15 [History] Montelukast Sodium [Singulair] 10 mg PO DAILY 07/02/15 [History] Sitagliptin Phosphate [Januvia] 100 mg PO DAILY 07/08/15 [History] Famotidine 40 mg PO BID 03/09/16 [History] Metformin HCl 500 mg [Glucophage 500 MG] 250 mg PO HS 03/09/16 [History] Diphenhydramine HCl 25 mg [Benadryl 25 mg Capsule] 25 mg PO QHS 05/28/16 [ History] Folic Acid 0.8 mg PO DAILY 08/16/16 [History] Naproxen 375 mg [Naprosyn 375 mg] 375 mg PO BID 08/16/16 [History] Furosemide [Lasix] 20 mg PO DAILY 09/15/16 [History] Sumatriptan Succinate [Imitrex 50 mg] 50 mg PO DAILY PRN PRN 09/15/16 [History] Levothyroxine Sodium 75 Mcg [Synthroid 75 Mcg] 75 mcg DAILY 11/04/16 [ History] Gabapentin [Gralise] 300 mg PO BID 08/28/17 [History] Metoprolol Tartrate 25 mg [Lopressor 25MG Tab] 50 mg PO DAILY 08/28/17 [ History] Rivaroxaban 10 mg Tablet [Xarelto 10 mg Tablet] 20 mg PO DAILY 08/28/17 [ History] Hx Tetanus, Diphtheria Vaccination/Date Given: No Hx Influenza Vaccination/Date Given: Yes Hx Pneumococcal Vaccination/Date Given: No - Review of Systems Constitutional: Malaise, No Fever, No Chills Eyes: No Symptoms Ears, Nose, & Throat: No Symptoms Respiratory: No Cough, No Dyspnea Cardiac: Chest Pain, Palpitations, No Syncope Abdominal/Gastrointestinal: Nausea, No Abdominal Pain, No Vomiting Skin: No Rash Neurological: No Focal Weakness, No Headache, No Parasthesia All Other Systems: Reviewed and Negative - Past Medical History Pertinent Past Medical History: Yes Neurological History: Migraines, Other ENT History: No Pertinent History Cardiac History: High Cholesterol, Hypertension, Other Respiratory History: Asthma, Bronchitis, COPD, Sleep Apnea Endocrine Medical History: Diabetes Type II, Hypothyroidism Musculoskeletal History: Other GI Medical History: No Pertinent History History: No Pertinent History Psycho-Social History: Anxiety, Depression Female Reproductive Disorders: Menstrual Problems, Other Other Medical History: ANEMIA. ITP - Past Surgical History Past Surgical History: No Neuro Surgical History: No Pertinent History Cardiac: No Pertinent History Respiratory: No Pertinent History Gastrointestinal: No Pertinent History Genitourinary: No Pertinent History Musculoskeletal: No Pertinent History Female Surgical History: No Pertinent History - Social History Smoking Status: Never smoker Exposure to second hand smoke: Yes Alcohol Use: None Drug Use: none Patient Lives Alone: No Significant Family History: no pertinent family hx - Female History Hx Last Menstrual Period: yesterday Hx Now: No - Nursing Vital Signs Nursing Vital Signs: Initial Vital Signs Temperature 98.5 F 08/28/17 13:24 Pulse Rate 83 08/28/17 13:24 Respiratory Rate 18 08/28/17 13:24 Blood Pressure 114/81 08/28/17 13:24 O2 Sat by Pulse Oximetry 98 08/28/17 13:24 Pain Scale Pain Intensity 6 - Physical Exam General Appearance: alert, obese Eye Exam: PERRL/EOMI Ears, Nose, Throat Exam: normal ENT inspection, moist mucous membranes Neck Exam: normal inspection, non-tender, supple Respiratory Exam: normal breath sounds Cardiovascular Exam: regular rate/rhythm Gastrointestinal/Abdomen Exam: soft, No tenderness, No distention Extremity Exam: normal inspection, normal range of motion, No calf tenderness, No pedal edema Neurologic Exam: alert, 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, cooperative, sensation nml, No motor deficits Skin Exam: warm, dry, No rash SpO2 Interpretation: normal SpO2: 98 - Course Nursing assessment & vital signs reviewed: Yes EKG Interpreted by Me: RATE (3), Sinus Rhythm, NORMAL AXIS, LAFB, NORMAL INTERVALS (QTc 440), Non-specific ST Changes - Radiology Exams cxr X-ray Interpretation: Reviewed by me (atelectasis) Ordered Tests: Active Orders 24 hr Category Date Time Status Trade Embalmer STAT Care 08/28/17 13:37 Active EKG-ER Only STAT Care 08/28/17 13:36 Active IV Insertion STAT Care 08/28/17 13:36 Active Pulse Oximetry (ED) STAT Care 08/28/17 13:36 Active CHEST 1 VIEW (PORTABLE) Stat Exams 08/28/17 13:37 Taken CBC W DIFF Stat Lab 08/28/17 13:30 Completed CMP Routine Lab 08/28/17 13:30 Completed HCG QUALITATIVE,SERUM Stat Lab 08/28/17 13:30 Completed TROPONIN Q3H Lab 08/28/17 13:30 Completed TROPONIN Q3H Lab 08/28/17 16:45 Ordered TROPONIN Q3H Lab 08/28/17 19:45 Ordered TROPONIN Q3H Lab 08/28/17 22:45 Ordered TROPONIN Q3H Lab 08/29/17 01:45 Ordered Medication Summary Discontinued Medications Generic Name Dose Route Start Last Admin Trade Name Paxton PRN Reason Stop Dose Admin Aspirin 81 mg 08/28/17 13:36 08/28/17 13:44 Baby Aspirin 81 Mg Chew PO 08/28/17 13:37 Not Given STAT ONE Aspirin Confirm 08/28/17 13:42 Baby Aspirin 81 Mg Chew Administered 08/28/17 13:43 Dose 81 mg .ROUTE .STK-MED ONE Famotidine 20 mg 08/28/17 13:36 08/28/17 13:46 Pepcid 20 Mg Vial IV 08/28/17 13:37 20 mg STAT ONE Administration Famotidine Confirm 08/28/17 13:43 Pepcid 20 Mg Vial Administered 08/28/17 13:44 Dose 20 mg IV .STK-MED ONE Fentanyl Citrate 50 mcg 08/28/17 14:47 Sublimaze 100 Mcg/2 Ml IV 08/28/17 14:48 STAT ONE Hydroxyzine HCl 25 mg 08/28/17 13:37 08/28/17 13:45 Atarax 25 Mg PO 08/28/17 13:38 25 mg STAT ONE Administration Hydroxyzine HCl Confirm 08/28/17 13:43 Atarax 25 Mg Administered 08/28/17 13:44 Dose 25 mg .ROUTE .STK-MED ONE Nitroglycerin 1 gm 08/28/17 13:36 08/28/17 13:45 Nitro-Bid 2% Ud Packets TOP 08/28/17 13:37 1 gm STAT ONE Administration Nitroglycerin Confirm 08/28/17 13:43 Nitro-Bid 2% Ud Packets Administered 08/28/17 13:44 Dose 1 gm .ROUTE .STK-MED ONE Ondansetron HCl 4 mg 08/28/17 14:47 Zofran 4 Mg/2 Ml Vial IV 08/28/17 14:48 STAT ONE Lab/Rad Data: Laboratory Result Diagrams 08/28/17 13:30 08/28/17 13:30 Laboratory Results 08/28/17 08/28/17 08/28/17 Range/Units 13:30 13:30 13:30 WBC 9.7 (4.0-10.5) K/mm3 RBC 3.92 L (4.1-5.4) M/mm3 Hgb 10.4 L (12.0-16.0) gm/dl Hct 33.0 L (35-47) % MCV 84.2 (78-100) fl MCH 26.5 (26-32) pg MCHC 31.5 L (32-36) g/dl RDW 14.6 H (11.5-14.0) % Plt Count 290 (150-450) K/mm3 MPV 9.6 H (6-9.5) fl Gran % 73.7 H (36.0-66.0) % Lymphocytes % 19.4 L (24.0-44.0) % Monocytes % 5.5 (0.0-12.0) % Eosinophils % 1.2 (0.00-5.0) % Basophils % 0.2 (0.0-0.4) % Basophils # 0.02 (0-0.4) Sodium 143 (137-145) mmol/L Potassium 3.9 (3.5-5.1) mmol/L Chloride 104 (98-107) mEq/L Carbon Dioxide 28 (22-30) mmol/L Anion Gap 15.3 H (5-15) MEQ/L BUN 22 H (7-17) mg/dl Creatinine 0.67 (0.52-1.04) mg/dl Estimated GFR > 60 ML/MIN Glucose 122 H (74-106) mg/dL Calcium 9.6 (8.4-10.2) mg/dL Total Bilirubin 0.20 (0.2-1.3) mg/d? AST 21 (14-36) U/L ALT 32 (0-35) U/L Alkaline Phosphatase 123 (38-126) U/L Troponin I < 0.012 (0.000-0.034) ng/ml Serum Total Protein 7.6 (6.3-8.2) mg/dl Albumin 4.3 (3.5-5.0) g/dl Serum , Qual NEGATIVE (Negative) - Progress Progress Note: 08/28/17 14:50 Still having chest pain. NTG paste applied. Normal troponin. She has strong fam hx of CAD in her mother and has HTN and obesity. Called Dr Ramy Mendoza for [place] and will place in chest pain observation to rule out DC. Will see patient in: hospital (observation) Counseled pt/family regarding: lab results, diagnosis, need for follow-up, rad results - Departure Time of Disposition: 14:51 Departure Disposition: Observation (Tele) Clinical Impression: Chest pain, rule out acute myocardial infarction Condition: Stable Critical Care Time: No Referrals: TIM MAGUIRE MD [Primary Care Provider] -
[2017-08-28 14:00] LABS: ALBUMIN 4.3 g/dl (3.5-5.0); ALKALINE PHOSPHATASE 123 U/L (38-126); ANION GAP 15.3 MEQ/L (5-15); BLOOD UREA NITROGEN 22 mg/dl (7-17); CHLORIDE 104 mEq/L (98-107); Calcium 9.6 mg/dL (8.4-10.2); Carbon Dioxide 28 mmol/L (22-30); Creatinine 1 0.67 mg/dl (0.52-1.04); Glucose 122 mg/dL (74-106); Potassium 3.9 mmol/L (3.5-5.1); SGOT/AST 21 U/L (14-36); SGPT/ALT 32 U/L (0-35); SODIUM 143 mmol/L (137-145); Total Protein 7.6 mg/dl (6.3-8.2)
[2017-08-28 14:13] LABS: TROPONIN < 0.012 ng/ml (0.000-0.034)
[2017-08-28] MEDS ORDERED: SUBLIMAZE 100 MCG/2 ML IV ONE (14:47)
[2017-08-28] MEDS ORDERED: Zofran 4 MG/2 ML VIAL IV ONE (14:47)
[2017-08-28] MEDS ORDERED: Zofran 4 MG/2 ML VIAL ONE (14:55)
[2017-08-28] MEDS ORDERED: SUBLIMAZE 100 MCG/2 ML ONE (14:56)
[2017-08-28] MEDS ORDERED: MILK OF MAGNESIA 30 ML PO PRN (15:06)
[2017-08-28] MEDS ORDERED: TYLENOL 325 MG PO PRN (15:06)
[2017-08-28] MEDS ORDERED: Zofran 4 MG/2 ML VIAL IV PRN (15:06)
[2017-08-28] MEDS ORDERED: Senokot-S Tablet PO PRN (15:06)
[2017-08-28] MEDS ORDERED: MAALOX ES 30 ML UNIT DOSE PO PRN (15:06)
[2017-08-28] MEDS ORDERED: NovoLOG Insulin SQ PRN (15:06)
[2017-08-28] MEDS ORDERED: NON-FORMULARY ITEM (Sumatriptan Succinate [Imitrex 50 Mg] 50 MG) PO PRN (16:20)
[2017-08-28] MEDS ORDERED: PATIENT OWN MEDICATION PO PRN (16:31)
[2017-08-28] MEDS: NORCO 5/325 MG PO PRN (18:12)
--- NOTE | 2017-08-28 20:40 | XRAY ---
Indication: Chest pain. Comparison: December 08, 2016. Portable chest remains clear. Heart and mediastinal structures within normal limits for AP portable technique. Bony thorax intact. Impression: Stable nonacute chest.
[2017-08-28] MEDS: Pepcid 20 MG PO SCH (21:40)
[2017-08-28] MEDS: Ativan 0.5 MG PO SCH (21:40)
[2017-08-28] MEDS: NEURONTIN 300 MG PO SCH (21:41)
[2017-08-28] MEDS: NITRO-BID 2% UD PACKETS TOP SCH (21:49)
[2017-08-28] MEDS ORDERED: NAPROSYN 375 MG PO PRN (22:00)
[2017-08-28] MEDS ORDERED: BENADRYL 25 MG CAPSULE PO SCH (22:00)
[2017-08-28] MEDS ORDERED: Glucophage 500 MG PO SCH (22:00)
[2017-08-28] MEDS ORDERED: Pepcid 20 MG PO SCH (22:00)
[2017-08-28] MEDS ORDERED: NON-FORMULARY ITEM (Famotidine [Famotidine] 40 MG) PO SCH (22:00)
[2017-08-28] MEDS ORDERED: GABAPENTIN 300 MG PO SCH (22:00)
[2017-08-28] MEDS: MORPHINE SULFATE 2 MG INJ IV PRN (23:30)
[2017-08-29 04:18] LABS: Risk Ratio 3.9
[2017-08-29 04:29] LABS: LDL, DIRECT 90.96 mg/dL (30-100)
[2017-08-29] MEDS: NORCO 5/325 MG PO PRN (05:19)
[2017-08-29] MEDS: NITRO-BID 2% UD PACKETS TOP SCH ×2 (05:29→14:16)
[2017-08-29 06:51] VITALS: O2SAT 97
[2017-08-29] MEDS: MORPHINE SULFATE 2 MG INJ IV PRN (08:11)
[2017-08-29] MEDS ORDERED: Lopressor 25MG Tab PO SCH (10:00)
[2017-08-29] MEDS ORDERED: XARELTO 10 MG TABLET PO SCH (10:00)
[2017-08-29] MEDS ORDERED: FOLATE 1 MG PO SCH (10:00)
[2017-08-29] MEDS ORDERED: Januvia 50 MG PO SCH (10:00)
[2017-08-29] MEDS ORDERED: Glucophage 500 MG PO SCH (10:00)
[2017-08-29] MEDS ORDERED: NON-FORMULARY ITEM (Folic Acid [Folic Acid] 0.8 MG) PO SCH (10:00)
[2017-08-29] MEDS ORDERED: ceLEXa 20 MG PO SCH (10:00)
[2017-08-29] MEDS ORDERED: Singulair 10 MG PO SCH (10:00)
[2017-08-29] MEDS ORDERED: LASIX 20 MG PO SCH (10:00)
[2017-08-29] MEDS ORDERED: SYNTHROID 75 MCG PO SCH (10:00)
[2017-08-29] MEDS ORDERED: Lopressor 50 MG PO SCH (10:00)
[2017-08-29] MEDS: NEURONTIN 300 MG PO SCH (10:13)
[2017-08-29] MEDS: Ativan 0.5 MG PO SCH (10:14)
[2017-08-29] MEDS: Pepcid 20 MG PO SCH (10:15)
[2017-08-29 10:58] VITALS: BP 133/63; PULSE 65
--- NOTE | 2017-08-29 12:53 | PCM.SSS ---
History of Present Illness - Chief Complaint Chief Complaint: chest pain History of Present Illness: is a 37 year old female has hx of afib but no CAD. She is on xarelto. Hx of ITP and asthma. She felt bad yesterday. Has some dizziness and feels malaise. No fever, chills, cough. 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 She took two NTG with some easing and came to ER. Continues to have some lower chest pains. Not short of breath. - Review of Systems Constitutional: No Fever, No Chills Eyes: No Symptoms Ears, Nose, & Throat: No Symptoms Respiratory: No Cough, No Short Of Breath Cardiac: No Chest Pain, No Edema, No Syncope Abdominal/Gastrointestinal: No Abdominal Pain, No Nausea, No Vomiting, No Diarrhea Genitourinary Symptoms: No Dysuria Musculoskeletal: No Back Pain, No Neck Pain Skin: No Rash Neurological: No Dizziness, No Focal Weakness, No Sensory Changes Psychological: No Symptoms Endocrine: No Symptoms Hematologic/Lymphatic: No Symptoms Immunological/Allergic: No Symptoms Medications & Allergies Home Medications: Home Medication List Metformin HCl 500 mg [Glucophage 500 MG] 500 mg PO DAILY 07/14/14 [ History Confirmed 08/28/17] Citalopram Hydrobromide 20 mg* [ceLEXa 20 MG] 20 mg PO DAILY 07/24/14 [ History Confirmed 08/28/17] Lorazepam 0.5 mg [Ativan 0.5 MG] 0.5 mg PO TID 07/02/15 [History Confirmed 08/28/17] Montelukast Sodium [Singulair] 10 mg PO DAILY 07/02/15 [History Confirmed ] Sitagliptin Phosphate [Januvia] 100 mg PO DAILY 07/08/15 [History Confirmed 05/07] Famotidine 40 mg PO BID 03/09/16 [History Confirmed 08/28/17] Metformin HCl 500 mg [Glucophage 500 MG] 250 mg PO HS 03/09/16 [History Confirmed 08/28/17] Diphenhydramine HCl 25 mg [Benadryl 25 mg Capsule] 25 mg PO QHS 05/28/16 [ History Confirmed 08/28/17] Folic Acid 0.8 mg PO DAILY 08/16/16 [History Confirmed 08/28/17] Naproxen 375 mg [Naprosyn 375 mg] 375 mg PO BID 08/16/16 [History Confirmed 08/28/17] Furosemide [Lasix] 20 mg PO DAILY 09/15/16 [History Confirmed 08/28/17] Sumatriptan Succinate [Imitrex 50 mg] 50 mg PO DAILY PRN PRN 09/15/16 [History Confirmed 08/28/17] Levothyroxine Sodium 75 Mcg [Synthroid 75 Mcg] 75 mcg DAILY 11/04/16 [ History Confirmed 08/28/17] Acetaminophen 650 mg PO Q4H PRN PRN #30 tablet 12/03/16 [Rx Confirmed 08/28/17] Gabapentin [Gralise] 300 mg PO BID 08/28/17 [History Confirmed 08/28/17] Metoprolol Tartrate 25 mg [Lopressor 25MG Tab] 50 mg PO DAILY 08/28/17 [ History Confirmed 08/28/17] Rivaroxaban 10 mg Tablet [Xarelto 10 mg Tablet] 20 mg PO DAILY 08/28/17 [ History Confirmed 08/28/17] Allergies/Adverse Reactions: Allergies Allergy/AdvReac Type Severity Reaction Status Date / Time Sulfa (Sulfonamide Allergy Rash Verified 08/28/17 13:35 Antibiotics) [Sulfa(Sulfonamide Antibiotics)] topiramate [From Topamax] Allergy confusion Verified 08/28/17 13:35 aspirin AdvReac Severe Verified 08/28/17 13:35 - Past Medical History Past Medical History: Yes Neurological History: Migraines, Other ENT History: No Pertinent History Cardiac History: High Cholesterol, Hypertension, Other Respiratory History: Asthma, Bronchitis, COPD, Sleep Apnea Endocrine Medical History: Diabetes Type II, Hypothyroidism Musculoskelatal History: Other GI Medical History: No Pertinent History History: No Pertinent History Pyscho-Social History: Anxiety, Depression Reproductive Disorders: Menstrual Problems, Other Comment: ANEMIA. ITP - Female History Hx Last Menstrual Period: yesterday Are you now?: No - Past Surgical History Past Surgical History: No Neuro Surgical History: No Pertinent History Cardiac History: No Pertinent History Respiratory Surgery: No Pertinent History GI Surgical History: No Pertinent History Genitourinary Surgical Hx: No Pertinent History Musculskeletal Surgical Hx: No Pertinent History Female Surgical History: No Pertinent History - Social History Smoking Status: Never smoker Exposure to second hand smoke: No Alcohol: None Drug Use: none Significant Family History: no pertinent family hx - Physical Exam Vital Signs: Vital Signs - 24 hr Temp Pulse Pulse Resp BP Pulse Ox 08/29/17 11:58 97 08/29/17 10:57 98.0 F 65 20 133/63 97 08/29/17 08:00 97 08/29/17 06:51 97.8 F 70 20 128/73 97 08/29/17 04:00 98.4 F 86 19 110/59 98 08/29/17 00:00 93 L 08/28/17 23:43 97.9 F 73 18 107/58 96 08/28/17 20:08 95 08/28/17 19:48 98.3 F 85 19 104/54 95 08/28/17 16:08 96 08/28/17 15:44 98.5 F 71 18 134/70 96 08/28/17 15:03 71 18 134/70 96 08/28/17 14:51 98 08/28/17 14:18 97 08/28/17 14:04 86 22 138/75 16 L 08/28/17 13:24 98.5 F 83 83 18 114/81 98 General Appearance: no apparent distress, alert Neurologic Exam: alert, 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, cooperative, normal mood/affect, nml cerebellar function, nml station & gait, sensation nml, No motor deficits Eye Exam: PERRL/EOMI, eyes nml inspection Ears, Nose, Throat Exam: normal ENT inspection, TMs normal, pharynx normal, moist mucous membranes Neck Exam: normal inspection, non-tender, supple, full range of motion Respiratory Exam: normal breath sounds, lungs clear, No respiratory distress Cardiovascular Exam: regular rate/rhythm, normal heart sounds, normal peripheral pulses Gastrointestinal/Abdomen Exam: soft, normal bowel sounds, No tenderness, No mass Back Exam: normal inspection, normal range of motion, No CVA tenderness, No vertebral tenderness Extremity Exam: normal inspection, normal range of motion, pelvis stable Skin Exam: normal color, warm, dry, No rash Lymphatic Exam: No adenopathy Results - Labs Lab/Micro Results: Accuchecks Date 08/29/17 Date 08/29/17 Date 08/28/17 Date 08/28/17 Time 22:00 Time 16:30 Accucheck Value: 143 Accucheck Value: 107 Accucheck Value: 126 Accucheck Value: 102 Lab Results-Last 24 Hours 08/28/17 08/28/17 08/29/17 Range/Units 16:57 19:54 03:21 Hemoglobin A1c (4.5-6.0) Troponin I < 0.012 < 0.012 < 0.012 (0.000-0.034) ng/ml Triglycerides (30-150) mg/dl Cholesterol (50-200) mg/dl LDL Cholesterol (30-100) mg/dL HDL Cholesterol (40-60) mg/dl Heart Disease Risk Ratio 08/29/17 08/29/17 Range/Units 03:21 10:05 Hemoglobin A1c 6.31 H (4.5-6.0) Troponin I (0.000-0.034) ng/ml Triglycerides 80 (30-150) mg/dl Cholesterol 144 (50-200) mg/dl LDL Cholesterol 90.96 (30-100) mg/dL HDL Cholesterol 37 L (40-60) mg/dl Heart Disease Risk Ratio 3.9 Accuchecks Date 08/29/17 Date 08/29/17 Date 08/28/17 Date 08/28/17 Time 22:00 Time 16:30 Accucheck Value: 143 Accucheck Value: 107 Accucheck Value: 126 Accucheck Value: 102 - Other Procedures and Tests Respiratory Therapy 08/30/17 05:00 EKG ONCE 08/31/17 05:00 EKG ONCE Assessment/Plan (1) Chest pain, rule out acute myocardial infarction Current Visit: Yes Status: Resolved Assessment & Plan: Chief Complaint Diagnosis chest pain Allergies Allergy/AdvReac Type Severity Reaction Status Date / Time Sulfa (Sulfonamide Allergy Rash Verified 08/28/17 13:35 Antibiotics) [Sulfa(Sulfonamide Antibiotics)] topiramate [From Topamax] Allergy confusion Verified 08/28/17 13:35 aspirin AdvReac Severe Verified 08/28/17 13:35 Vital Signs (Last 24 hours) Temp Pulse Pulse Resp BP Pulse Ox 08/29/17 11:58 97 08/29/17 10:57 98.0 F 65 20 133/63 97 08/29/17 08:00 97 08/29/17 06:51 97.8 F 70 20 128/73 97 08/29/17 04:00 98.4 F 86 19 110/59 98 08/29/17 00:00 93 L 08/28/17 23:43 97.9 F 73 18 107/58 96 08/28/17 20:08 95 08/28/17 19:48 98.3 F 85 19 104/54 95 08/28/17 16:08 96 08/28/17 15:44 98.5 F 71 18 134/70 96 08/28/17 15:03 71 18 134/70 96 08/28/17 14:51 98 08/28/17 14:18 97 08/28/17 14:04 86 22 138/75 16 L 08/28/17 13:24 98.5 F 83 83 18 114/81 98 Home Medications Medication Instructions Recorded Confirmed Last Taken Type Gabapentin [Gralise] 300 mg PO BID 08/28/17 08/28/17 08/28/17 History Metoprolol Tartrate 25 mg 50 mg PO DAILY 08/28/17 08/28/17 08/28/17 History [Lopressor 25MG Tab] Rivaroxaban 10 mg Tablet 20 mg PO DAILY 08/28/17 08/28/17 08/28/17 History [Xarelto 10 mg Tablet] Current Medications Generic Name Dose Route Start Last Admin Trade Name Freq PRN Reason Stop Dose Admin Acetaminophen 650 mg 08/28/17 15:06 08/28/17 21:40 Tylenol 325 Mg PO 09/27/17 15:05 650 mg Q4H PRN PRN Administration PAIN AND/OR FEVER Hydrocodone Bitart/Acetaminophen 1 tab 08/28/17 18:07 08/29/17 05:19 [place] 5/325 Mg PO 09/02/17 18:06 1 tab Q8H PRN PRN Administration PAIN Al Hydrox/Mg Hydrox/Simethicone 30 ml 08/28/17 15:06 Maalox Es 30 Ml Unit Dose PO 09/27/17 15:05 Q4H PRN PRN INDIGESTION Citalopram Hydrobromide 20 mg 08/29/17 10:00 08/29/17 10:14 Celexa 20 Mg PO 09/28/17 09:59 20 mg DAILY CAITY Administration Diphenhydramine HCl 25 mg 08/28/17 22:00 08/28/17 21:41 Benadryl 25 Mg Capsule PO 09/27/17 21:59 25 mg QHS CAITY Administration Famotidine 40 mg 08/28/17 22:00 08/29/17 10:15 Pepcid 20 Mg PO 09/27/17 21:59 40 mg BID CAITY Administration Folic Acid 1 mg 08/29/17 10:00 08/29/17 10:14 Folate 1 Mg PO 09/28/17 09:59 1 mg DAILY CAITY Administration Furosemide 20 mg 08/29/17 10:00 08/29/17 10:14 Lasix 20 Mg PO 09/28/17 09:59 20 mg DAILY CAITY Administration Gabapentin 300 mg 08/28/17 22:00 08/29/17 10:13 Neurontin 300 Mg PO 09/27/17 21:59 300 mg BID CAITY Administration Insulin Aspart 0 unit 08/28/17 15:06 Novolog Insulin SQ 09/27/17 15:05 PRN PRN HYPERGLYCEMIA Levothyroxine Sodium 75 mcg 08/29/17 10:00 08/29/17 10:15 Synthroid 75 Mcg PO 09/28/17 09:59 75 mcg DAILY CAITY Administration Lorazepam 0.5 mg 08/28/17 22:00 08/29/17 10:14 Ativan 0.5 Mg PO 09/27/17 21:59 0.5 mg TID CAITY Administration Magnesium Hydroxide 30 - 60 ml 08/28/17 15:06 Milk Of Magnesia 30 Ml PO 09/27/17 15:05 QDP PRN CONSTIPATION Metformin HCl 250 mg 08/28/17 22:00 08/28/17 21:41 Glucophage 500 Mg PO 09/27/17 21:59 250 mg HS CAITY Administration Metformin HCl 500 mg 08/29/17 10:00 08/29/17 10:14 Glucophage 500 Mg PO 09/28/17 09:59 500 mg DAILY CAITY Administration Metoprolol Tartrate 50 mg 08/29/17 10:00 03/12/18 10:16 Lopressor 50 Mg PO 09/28/17 09:59 50 mg DAILY CAITY Administration Montelukast Sodium 10 mg 08/29/17 10:00 08/29/17 10:15 Singulair 10 Mg PO 09/28/17 09:59 10 mg DAILY CAITY Administration Morphine Sulfate 1 mg 08/28/17 22:45 08/29/17 08:11 Morphine Sulfate 2 Mg Inj IV 09/02/17 22:44 1 mg Q6H PRN PRN Administration PAIN Naproxen 375 mg 08/28/17 22:00 Naprosyn 375 Mg PO 09/27/17 21:59 BID PRN PRN Nitroglycerin 1 gm 08/28/17 22:00 08/29/17 05:29 Nitro-Bid 2% Ud Packets TOP 09/27/17 21:59 Not Given Q8HT [facility] Ondansetron HCl 4 mg 08/28/17 15:06 Zofran 4 Mg/2 Ml Vial IV 09/27/17 15:05 Q4H PRN PRN NAUSEA/VOMITING Patient Own Med: 0 each 08/28/17 16:31 Imitrex 50 Mg Tablet PO 09/27/17 16:30 DAILY PRN PRN HEADACHE Senna/Docusate Sodium 2 udtab 08/28/17 15:06 Senokot-S Tablet PO 09/27/17 15:05 BID PRN PRN CONSTIPATION Sitagliptin Phosphate 100 mg 08/29/17 10:00 08/29/17 10:15 Januvia 50 Mg PO 09/28/17 09:59 100 mg DAILY CAITY Administration Discontinued Medications Generic Name Dose Route Start Last Admin Trade Name Freq PRN Reason Stop Dose Admin Aspirin 81 mg 08/28/17 13:36 08/28/17 13:44 Baby Aspirin 81 Mg Chew PO 08/28/17 13:37 Not Given STAT ONE Aspirin Confirm 08/28/17 13:42 Baby Aspirin 81 Mg Chew Administered 08/28/17 13:43 Dose 81 mg .ROUTE .STK-MED ONE Famotidine 20 mg 08/28/17 13:36 08/28/17 13:46 Pepcid 20 Mg Vial IV 08/28/17 13:37 20 mg STAT ONE Administration Famotidine Confirm 08/28/17 13:43 Pepcid 20 Mg Vial Administered 08/28/17 13:44 Dose 20 mg IV .STK-MED ONE Famotidine 20 mg 08/28/17 22:00 Pepcid 20 Mg PO 09/27/17 21:59 BID CAITY Fentanyl Citrate 50 mcg 08/28/17 14:47 08/28/17 14:56 Sublimaze 100 Mcg/2 Ml IV 08/28/17 14:48 50 mcg STAT ONE Administration Fentanyl Citrate Confirm 08/28/17 14:56 Sublimaze 100 Mcg/2 Ml Administered 08/28/17 14:57 Dose 100 mcg .ROUTE .STK-MED ONE Hydroxyzine HCl 25 mg 08/28/17 13:37 08/28/17 13:45 Atarax 25 Mg PO 08/28/17 13:38 25 mg STAT ONE Administration Hydroxyzine HCl Confirm 08/28/17 13:43 Atarax 25 Mg Administered 08/28/17 13:44 Dose 25 mg .ROUTE .STK-MED ONE Nitroglycerin 1 gm 08/28/17 13:36 08/28/17 13:45 Nitro-Bid 2% Ud Packets TOP 08/28/17 13:37 1 gm STAT ONE Administration Nitroglycerin Confirm 08/28/17 13:43 Nitro-Bid 2% Ud Packets Administered 08/28/17 13:44 Dose 1 gm .ROUTE .STK-MED ONE Ondansetron HCl 4 mg 08/28/17 14:47 08/28/17 14:56 Zofran 4 Mg/2 Ml Vial IV 08/28/17 14:48 4 mg STAT ONE Administration Ondansetron HCl Confirm 08/28/17 14:55 Zofran 4 Mg/2 Ml Vial Administered 08/28/17 14:56 Dose 4 mg .ROUTE .STK-MED ONE Intake & Output (Last 24 hours) 08/27/17 08/28/17 08/29/17 08/30/17 10:59 11:59 11:59 11:59 Intake Total 1578 Output Total 400 Balance 1178 Weight 156.9 kg Laboratory Results (Last 24 hours) 08/29/17 08/29/17 08/29/17 10:05 03:21 03:21 WBC RBC Hgb Hct MCV MCH MCHC RDW Plt Count MPV Gran % Lymphocytes % Monocytes % Eosinophils % Basophils % Basophils # Sodium Potassium Chloride Carbon Dioxide Anion Gap BUN Creatinine Estimated GFR Glucose Hemoglobin A1c 6.31 H Calcium Total Bilirubin AST ALT Alkaline Phosphatase Troponin I < 0.012 Serum Total Protein Albumin Triglycerides 80 Cholesterol 144 LDL Cholesterol 90.96 HDL Cholesterol 37 L Heart Disease Risk Ratio 3.9 TSH 3rd Generation Serum , Qual 08/28/17 08/28/17 08/28/17 19:54 16:57 13:45 WBC RBC Hgb Hct MCV MCH MCHC RDW Plt Count MPV Gran % Lymphocytes % Monocytes % Eosinophils % Basophils % Basophils # Sodium Potassium Chloride Carbon Dioxide Anion Gap BUN Creatinine Estimated GFR Glucose Hemoglobin A1c Calcium Total Bilirubin AST ALT Alkaline Phosphatase Troponin I < 0.012 < 0.012 Serum Total Protein Albumin Triglycerides Cholesterol LDL Cholesterol HDL Cholesterol Heart Disease Risk Ratio TSH 3rd Generation 4.240 Serum , Qual 08/28/17 08/28/17 08/28/17 13:30 13:30 13:30 WBC 9.7 RBC 3.92 L Hgb 10.4 L Hct 33.0 L MCV 84.2 MCH 26.5 MCHC 31.5 L RDW 14.6 H Plt Count 290 MPV 9.6 H Gran % 73.7 H Lymphocytes % 19.4 L Monocytes % 5.5 Eosinophils % 1.2 Basophils % 0.2 Basophils # 0.02 Sodium 143 Potassium 3.9 Chloride 104 Carbon Dioxide 28 Anion Gap 15.3 H BUN 22 H Creatinine 0.67 Estimated GFR > 60 Glucose 122 H Hemoglobin A1c Calcium 9.6 Total Bilirubin 0.20 AST 21 ALT 32 Alkaline Phosphatase 123 Troponin I < 0.012 Serum Total Protein 7.6 Albumin 4.3 Triglycerides Cholesterol LDL Cholesterol HDL Cholesterol Heart Disease Risk Ratio TSH 3rd Generation Serum , Qual NEGATIVE 08/28/17 00:02 WBC RBC Hgb Hct MCV MCH MCHC RDW Plt Count MPV Gran % Lymphocytes % Monocytes % Eosinophils % Basophils % Basophils # Sodium Potassium Chloride Carbon Dioxide Anion Gap BUN Creatinine Estimated GFR Glucose Hemoglobin A1c Calcium Total Bilirubin AST ALT Alkaline Phosphatase Troponin I < 0.012 Serum Total Protein Albumin Triglycerides Cholesterol LDL Cholesterol HDL Cholesterol Heart Disease Risk Ratio TSH 3rd Generation Serum , Qual Orders (Last 24 hours) Category Date Time Status Bedrest with BRP/BSC ROUTINE Activity 08/28/17 15:06 Active Accucheck ACHS Care 08/28/17 15:06 Active Call Admit Doctor for Orders ROUTINE Care 08/28/17 15:06 Active Seed Tester STAT Care 08/28/17 13:37 Completed Code Status Order ROUTINE Care 08/28/17 15:06 Active EKG-ER Only STAT Care 08/28/17 13:36 Completed IV Care Q6H Care 08/28/17 15:06 Completed IV Insertion STAT Care 08/28/17 13:36 Completed Implement Chest Pain Pathway ROUTINE Care 08/28/17 15:[address] in Observation ROUTINE Care 08/28/17 15:06 Active Pulse Oximetry (ED) STAT Care 08/28/17 13:36 Completed [place] Arellano, Jacquie ROUTINE Care 08/28/17 15:06 Active Telemetry ROUTINE Care 08/28/17 15:06 Active Vital Signs Q4H Care 08/28/17 15:06 Completed Weight,Daily 0600 Care 08/28/17 15:06 Active 1800 Calorie ADA Diet 08/29/17 Dinner Active Nutritional Admission Screen once Diet 08/28/17 15:57 Completed CHEST 1 VIEW (PORTABLE) Stat Exams 08/28/17 13:37 Completed CBC W DIFF Stat Lab 08/28/17 13:30 Completed CMP Routine Lab 08/28/17 13:30 Completed HCG QUALITATIVE,SERUM Stat Lab 08/28/17 13:30 Completed HEMOGLOBIN A1C Urgent Lab 08/29/17 10:05 Completed LIPID PROFILE AM.LAB Lab 08/29/17 03:21 Completed TROPONIN Q3H Lab 08/28/17 13:30 Completed TROPONIN Q3H Lab 08/28/17 16:57 Completed TROPONIN Q3H Lab 08/28/17 19:54 Completed TROPONIN Q3H Lab 08/29/17 03:21 Completed TSH [TSH, 3RD Generation] Routine Lab 08/28/17 13:45 Completed Acetaminophen 325 mg [Tylenol 325 mg] Med 08/28/17 15:06 Active 650 mg PO Q4H PRN PRN Aspirin 81 gm Chew [Baby Aspirin 81 mg Chew] Med 08/28/17 13:42 Discontinued 81 mg .ROUTE .STK-MED ONE Aspirin 81 gm Chew [Baby Aspirin 81 mg Chew] Med 08/28/17 13:36 Discontinued 81 mg PO STAT ONE Citalopram Hydrobromide 20 mg* [ceLEXa 20 MG] Med 08/29/17 10:00 Active 20 mg PO DAILY Diphenhydramine HCl 25 mg [Benadryl 25 mg Capsule Med 08/28/17 22:00 Active ] 25 mg PO QHS Famotidine 20 mg Vial [Pepcid 20 MG VIAL] Med 08/28/17 13:43 Discontinued 20 mg IV .STK-MED ONE Famotidine 20 mg Vial [Pepcid 20 MG VIAL] Med 08/28/17 13:36 Discontinued 20 mg IV STAT ONE Famotidine 20 mg [Pepcid 20 MG] Med 08/28/17 22:00 Discontinued 20 mg PO BID Famotidine 20 mg [Pepcid 20 MG] Med 08/28/17 22:00 Active 40 mg PO BID Fentanyl Citrate 100 Mcg/2 ml* [Sublimaze 100 Mcg/2 ml* Med 08/28/17 14:56 Discontinued ] 100 mcg .ROUTE .STK-MED ONE Fentanyl Citrate 100 Mcg/2 ml* [Sublimaze 100 Mcg/2 ml* Med 08/28/17 14:47 Discontinued ] 50 mcg IV STAT ONE Folic Acid 1 mg [Folate 1 mg] Med 08/29/17 10:00 Active 1 mg PO DAILY Furosemide 20 mg [Lasix 20 mg] Med 08/29/17 10:00 Active 20 mg PO DAILY Gabapentin 300 mg [Neurontin 300 mg] Med 08/28/17 22:00 Active 300 mg PO BID Hydrocodone/APAP 5/325 [[place] 5/325 mg] Med 08/28/17 18:07 Active 1 tab PO Q8H PRN PRN Hydroxyzine HCl 25 mg [Atarax 25 mg] Med 08/28/17 13:43 Discontinued 25 mg .ROUTE .STK-MED ONE Hydroxyzine HCl 25 mg [Atarax 25 mg] Med 08/28/17 13:37 Discontinued 25 mg PO STAT ONE Insulin Aspart [NovoLOG Insulin] Med 08/28/17 15:06 Active See Dose Instructions SQ PRN PRN Levothyroxine Sodium 75 Mcg [Synthroid 75 Mcg] Med 08/29/17 10:00 Active 75 mcg PO DAILY Lorazepam 0.5 mg [Ativan 0.5 MG] Med 08/28/17 22:00 Active 0.5 mg PO TID Mag Hydrox/Al Hydrox/Simeth [Maalox Es 30 ml Unit Med 08/28/17 15:06 Active Dose] 30 ml PO Q4H PRN PRN Magnesium Hydroxide 30 ml [Milk of Magnesia 30 ml Med 08/28/17 15:06 Active ] 30 - 60 ml PO QDP PRN Metformin HCl 500 mg [Glucophage 500 MG] Med 08/28/17 22:00 Active 250 mg PO HS Metformin HCl 500 mg [Glucophage 500 MG] Med 08/29/17 10:00 Active 500 mg PO DAILY Metoprolol Tartrate 50 mg [Lopressor 50 MG] Med 08/29/17 10:00 Active 50 mg PO DAILY Montelukast Sodium 10 mg [Singulair 10 MG] Med 08/29/17 10:00 Active 10 mg PO DAILY Morphine Sulfate 2 mg Inj Med 08/28/17 22:45 Active 1 mg IV Q6H PRN PRN Naproxen 375 mg [Naprosyn 375 mg] Med 08/28/17 22:00 Active 375 mg PO BID PRN PRN Nitroglycerin 2 %Ointment [Nitro-Bid 2% Ud Packets Med 08/28/17 13:43 Discontinued *] 1 gm .ROUTE .STK-MED ONE Nitroglycerin 2 %Ointment [Nitro-Bid 2% Ud Packets Med 08/28/17 22:00 Active *] 1 gm TOP Q8HT Nitroglycerin 2 %Ointment [Nitro-Bid 2% Ud Packets Med 08/28/17 13:36 Discontinued *] 1 gm TOP STAT ONE Ondansetron HCl 4 mg/2 ml [Zofran 4 MG/2 ML VIAL] Med 08/28/17 14:55 Discontinued 4 mg .ROUTE .STK-MED ONE Ondansetron HCl 4 mg/2 ml [Zofran 4 MG/2 ML VIAL] Med 08/28/17 15:06 Active 4 mg IV Q4H PRN PRN Ondansetron HCl 4 mg/2 ml [Zofran 4 MG/2 ML VIAL] Med 08/28/17 14:47 Discontinued 4 mg IV STAT ONE Patient Own Med [Patient Own Medication] Med 08/28/17 16:31 Active 0 each PO DAILY PRN PRN Rivaroxaban 10 mg Tablet [Xarelto 10 mg Tablet] Med 08/29/17 10:00 Active 20 mg PO DAILY Senna/Docusate Sodium Tab [Senokot-S Tablet] Med 08/28/17 15:06 Active 2 udtab PO BID PRN PRN Sitagliptin Phosphate 50 MG [Januvia 50 MG] Med 08/29/17 10:00 Active 100 mg PO DAILY EKG ONCE RT 08/28/17 21:00 Completed EKG ONCE RT 08/29/17 05:00 Completed EKG ONCE RT 08/30/17 05:00 Active EKG ONCE RT 08/31/17 05:00 Active EKG Q8HX2,QAMX3,PRN RT 08/28/17 15:06 Completed Pulse Oximetry Q4H RT 08/28/17 15:06 Active RT Screen per Nursing Assess ONCE RT 08/28/17 15:57 Completed Code(s): R07.9 - CHEST PAIN, UNSPECIFIED (2) Bronchitis Current Visit: No Status: Acute Code(s): J40 - BRONCHITIS, NOT SPECIFIED ACUTE OR CHRONIC (3) Hypertension Current Visit: No Status: Chronic Qualifiers: Hypertension type: essential hypertension Qualified Code(s): I10 - Essential (primary) hypertension Code(s): I10 - ESSENTIAL (PRIMARY) HYPERTENSION (4) Morbid obesity Current Visit: No Status: Chronic Code(s): E66.01 - MORBID (SEVERE) OBESITY DUE TO EXCESS CALORIES (5) Sleep apnea, obstructive Current Visit: No Status: Chronic Code(s): G47.33 - OBSTRUCTIVE SLEEP APNEA (ADULT) (PEDIATRIC) (6) Type 2 diabetes mellitus with hyperglycemia, without long-term current use of insulin Current Visit: No Status: Chronic Code(s): E11.65 - TYPE 2 DIABETES MELLITUS WITH HYPERGLYCEMIA Hospital Summary - Hospital Course Hospital Course: Last Vital Signs Temp 98.0 F 08/29/17 10:57 Pulse 65 08/29/17 10:57 Resp 20 08/29/17 10:57 BP 133/63 08/29/17 10:57 Pulse Ox 97 08/29/17 11:58 Allergies Sulfa (Sulfonamide Antibiotics) [Sulfa(Sulfonamide Antibiotics)] Allergy ( Verified 08/28/17 13:35) Rash topiramate [From Topamax] Allergy (Verified 08/28/17 13:35) confusion aspirin Adverse Reaction (Severe, Verified 08/28/17 13:35) advised not to take it d/t it will cause her to bleed Active Medications Acetaminophen (Tylenol 325 Mg) 650 mg PO Q4H PRN PRN PRN Reason: PAIN AND/OR FEVER Stop: 09/27/17 15:05 Last Admin: 08/28/17 21:40 Dose: 650 mg Hydrocodone Bitart/Acetaminophen ([place] 5/325 Mg) 1 tab PO Q8H PRN PRN PRN Reason: PAIN Stop: 09/02/17 18:06 Last Admin: 08/29/17 05:19 Dose: 1 tab Al Hydrox/Mg Hydrox/Simethicone (Maalox Es 30 Ml Unit Dose) 30 ml PO Q4H PRN PRN PRN Reason: INDIGESTION Stop: 09/27/17 15:05 Citalopram Hydrobromide (Celexa 20 Mg) 20 mg PO DAILY [facility] [place] Stop: 09/28/17 09:59 Last Admin: 08/29/17 10:14 Dose: 20 mg Diphenhydramine HCl (Benadryl 25 Mg Capsule) 25 mg PO QHS CAITY Stop: 09/27/17 21:59 Last Admin: 08/28/17 21:41 Dose: 25 mg Famotidine (Pepcid 20 Mg) 40 mg PO BID CAITY Stop: 09/27/17 21:59 Last Admin: 08/29/17 10:15 Dose: 40 mg Folic Acid (Folate 1 Mg) 1 mg PO DAILY CAITY Stop: 09/28/17 09:59 Last Admin: 08/29/17 10:14 Dose: 1 mg Furosemide (Lasix 20 Mg) 20 mg PO DAILY CAITY Stop: 09/28/17 09:59 Last Admin: 08/29/17 10:14 Dose: 20 mg Gabapentin (Neurontin 300 Mg) 300 mg PO BID CAITY Stop: 09/27/17 21:59 Last Admin: 08/29/17 10:13 Dose: 300 mg Insulin Aspart (Novolog Insulin) 0 unit SQ PRN PRN PRN Reason: HYPERGLYCEMIA Stop: 09/27/17 15:05 Levothyroxine Sodium (Synthroid 75 Mcg) 75 mcg PO DAILY [facility] [place] Stop: 09/28/17 09:59 Last Admin: 08/29/17 10:15 Dose: 75 mcg Lorazepam (Ativan 0.5 Mg) 0.5 mg PO TID CAITY Stop: 09/27/17 21:59 Last Admin: 08/29/17 10:14 Dose: 0.5 mg Magnesium Hydroxide (Milk Of Magnesia 30 Ml) 30 - 60 ml PO QDP PRN PRN Reason: CONSTIPATION Stop: 09/27/17 15:05 Metformin HCl (Glucophage 500 Mg) 250 mg PO HS [facility] [place] Stop: 09/27/17 21:59 Last Admin: 08/28/17 21:41 Dose: 250 mg Metformin HCl (Glucophage 500 Mg) 500 mg PO DAILY [facility] Stop: 09/28/17 09:59 Last Admin: 08/29/17 10:14 Dose: 500 mg Metoprolol Tartrate (Lopressor 50 Mg) 50 mg PO DAILY [facility] Stop: 09/28/17 09:59 Last Admin: 08/29/17 10:16 Dose: 50 mg Montelukast Sodium (Singulair 10 Mg) 10 mg PO DAILY [facility] [place] Stop: 09/28/17 09:59 Last Admin: 08/29/17 10:15 Dose: 10 mg Morphine Sulfate (Morphine Sulfate 2 Mg Inj) 1 mg IV Q6H PRN PRN PRN Reason: PAIN Stop: 09/02/17 22:44 Last Admin: 08/29/17 08:11 Dose: 1 mg Naproxen (Naprosyn 375 Mg) 375 mg PO BID PRN PRN Stop: 09/27/17 21:59 Nitroglycerin (Nitro-Bid 2% Ud Packets) 1 gm TOP Q8HT [facility] Stop: 09/27/17 21:59 Last Admin: 08/29/17 05:29 Dose: Not Given Ondansetron HCl (Zofran 4 Mg/2 Ml Vial) 4 mg IV Q4H PRN PRN PRN Reason: NAUSEA/VOMITING Stop: 09/27/17 15:05 Patient Own Med: (Imitrex 50 Mg Tablet) 0 each PO DAILY PRN PRN PRN Reason: HEADACHE Stop: 09/27/17 16:30 Senna/Docusate Sodium (Senokot-S Tablet) 2 udtab PO BID PRN PRN PRN Reason: CONSTIPATION Stop: 09/27/17 15:05 Sitagliptin Phosphate (Januvia 50 Mg) 100 mg PO DAILY [facility] [facility] Stop: 09/28/17 09:59 Last Admin: 08/29/17 10:15 Dose: 100 mg Intake & Output 08/29/17 08/30/17 11:59 11:59 Intake Total 1578 Output Total 400 Balance 1178 Weight 156.9 kg Orders 08/30/17 05:00 EKG ONCE 08/31/17 05:00 EKG ONCE Lab Tests 08/28/17 08/28/17 08/28/17 00:02 13:30 13:30 WBC 9.7 RBC 3.92 L Hgb 10.4 L Hct 33.0 L MCV 84.2 MCH 26.5 MCHC 31.5 L RDW 14.6 H Plt Count 290 MPV 9.6 H Gran % 73.7 H Lymphocytes % 19.4 L Monocytes % 5.5 Eosinophils % 1.2 Basophils % 0.2 Basophils # 0.02 Sodium 143 Potassium 3.9 Chloride 104 Carbon Dioxide 28 Anion Gap 15.3 H BUN 22 H Creatinine 0.67 Estimated GFR > 60 Glucose 122 H Hemoglobin A1c Calcium 9.6 Total Bilirubin 0.20 AST 21 ALT 32 Alkaline Phosphatase 123 Troponin I < 0.012 < 0.012 Serum Total Protein 7.6 Albumin 4.3 Triglycerides Cholesterol LDL Cholesterol HDL Cholesterol Heart Disease Risk Ratio TSH 3rd Generation Serum , Qual 08/28/17 08/28/17 08/28/17 13:30 13:45 16:57 WBC RBC Hgb Hct MCV MCH MCHC RDW Plt Count MPV Gran % Lymphocytes % Monocytes % Eosinophils % Basophils % Basophils # Sodium Potassium Chloride Carbon Dioxide Anion Gap BUN Creatinine Estimated GFR Glucose Hemoglobin A1c Calcium Total Bilirubin AST ALT Alkaline Phosphatase Troponin I < 0.012 Serum Total Protein Albumin Triglycerides Cholesterol LDL Cholesterol HDL Cholesterol Heart Disease Risk Ratio TSH 3rd Generation 4.240 Serum , Qual NEGATIVE 08/28/17 08/29/17 08/29/17 19:54 03:21 03:21 WBC RBC Hgb Hct MCV MCH MCHC RDW Plt Count MPV Gran % Lymphocytes % Monocytes % Eosinophils % Basophils % Basophils # Sodium Potassium Chloride Carbon Dioxide Anion Gap BUN Creatinine Estimated GFR Glucose Hemoglobin A1c Calcium Total Bilirubin AST ALT Alkaline Phosphatase Troponin I < 0.012 < 0.012 Serum Total Protein Albumin Triglycerides 80 Cholesterol 144 LDL Cholesterol 90.96 HDL Cholesterol 37 L Heart Disease Risk Ratio 3.9 TSH 3rd Generation Serum , Qual 08/29/17 10:05 WBC RBC Hgb Hct MCV MCH MCHC RDW Plt Count MPV Gran % Lymphocytes % Monocytes % Eosinophils % Basophils % Basophils # Sodium Potassium Chloride Carbon Dioxide Anion Gap BUN Creatinine Estimated GFR Glucose Hemoglobin A1c 6.31 H Calcium Total Bilirubin AST ALT Alkaline Phosphatase Troponin I Serum Total Protein Albumin Triglycerides Cholesterol LDL Cholesterol HDL Cholesterol Heart Disease Risk Ratio TSH 3rd Generation Serum , Qual - Vitals & Intake/Output Vital Signs: Vital Signs Temperature 98.0 F 08/29/17 10:57 Pulse Rate 65 08/29/17 10:57 Respiratory Rate 20 08/29/17 10:57 Blood Pressure 133/63 08/29/17 10:57 O2 Sat by Pulse Oximetry 97 08/29/17 11:58 Intake & Output: Intake & Output 08/27/17 08/28/17 08/29/17 08/30/17 10:59 11:59 11:59 11:59 Intake Total 1578 Output Total 400 Balance 1178 Weight 156.9 kg - Lab Result Diagrams: 08/28/17 13:30 08/28/17 13:30 Lab Results-Last 24 Hrs: Accuchecks Date 08/29/17 Date 08/29/17 Date 08/28/17 Date 08/28/17 Time 22:00 Time 16:30 Accucheck Value: 143 Accucheck Value: 107 Accucheck Value: 126 Accucheck Value: 102 Lab Results-Last 24 Hours 08/28/17 08/28/17 08/29/17 Range/Units 16:57 19:54 03:21 Hemoglobin A1c (4.5-6.0) Troponin I < 0.012 < 0.012 < 0.012 (0.000-0.034) ng/ml Triglycerides (30-150) mg/dl Cholesterol (50-200) mg/dl LDL Cholesterol (30-100) mg/dL HDL Cholesterol (40-60) mg/dl Heart Disease Risk Ratio 08/29/17 08/29/17 Range/Units 03:21 10:05 Hemoglobin A1c 6.31 H (4.5-6.0) Troponin I (0.000-0.034) ng/ml Triglycerides 80 (30-150) mg/dl Cholesterol 144 (50-200) mg/dl LDL Cholesterol 90.96 (30-100) mg/dL HDL Cholesterol 37 L (40-60) mg/dl Heart Disease Risk Ratio 3.9 Micro Results-Entire Visit: Accuchecks Date 08/29/17 Date 08/29/17 Date 08/28/17 Date 08/28/17 Time 22:00 Time 16:30 Accucheck Value: 143 Accucheck Value: 107 Accucheck Value: 126 Accucheck Value: 102 - Procedures and Test Procedures and Tests throughout Hospitalization: Therapy Orders & Screens 08/28/17 15:57 RT Screen per Nursing Assess ONCE Comment: Protocol Order Physician Instructions: Greater than 3 points order RT Admission Screen Reason For Exam: Triggered on Admission Diagnosis: chest pain Diagnosis: chest pain Pneumonia: No Home O2: No Asthma: Yes CHF: No Home CPAP/BIPAP: Yes Home Nebs/MDI: No Total Points: 9 08/28/17 21:00 EKG ONCE Comment: Diagnosis: chest pain 08/29/17 05:00 EKG ONCE Comment: Diagnosis: chest pain 08/30/17 05:00 EKG ONCE Comment: Diagnosis: chest pain 08/31/17 05:00 EKG ONCE Comment: Diagnosis: chest pain - Discharge Discharge Date: 08/29/17 Disposition: Home, Self-Care Condition: Stable Prescriptions: No Action Metformin HCl 500 mg [Glucophage 500 MG] 500 mg PO DAILY Citalopram Hydrobromide 20 mg* [ceLEXa 20 MG] 20 mg PO DAILY Montelukast Sodium [Singulair] 10 mg PO DAILY Lorazepam 0.5 mg [Ativan 0.5 MG] 0.5 mg PO TID Sitagliptin Phosphate [Januvia] 100 mg PO DAILY Metformin HCl 500 mg [Glucophage 500 MG] 250 mg PO HS Famotidine 40 mg PO BID Diphenhydramine HCl 25 mg [Benadryl 25 mg Capsule] 25 mg PO QHS Naproxen 375 mg [Naprosyn 375 mg] 375 mg PO BID Folic Acid 0.8 mg PO DAILY Furosemide [Lasix] 20 mg PO DAILY Sumatriptan Succinate [Imitrex 50 mg] 50 mg PO DAILY PRN PRN PRN Reason: Headache Levothyroxine Sodium 75 Mcg [Synthroid 75 Mcg] 75 mcg DAILY Acetaminophen 650 mg PO Q4H PRN PRN #30 tablet PRN Reason: Pain Rivaroxaban 10 mg Tablet [Xarelto 10 mg Tablet] 20 mg PO DAILY Gabapentin [Gralise] 300 mg PO BID Metoprolol Tartrate 25 mg [Lopressor 25MG Tab] 50 mg PO DAILY Follow up with: TIM MAGUIRE MD [Primary Care Provider] - 1 Week
== END 2017-08-29 14:45 | disposition home or self-care (01) ==
LOC: ED 13:13 → MED SURG 15:21
PROVIDERS: ADMIT General Practice; ATTEND General Practice
DX: R07.9 Chest pain, unspecified (principal); R42 Dizziness and giddiness; R53.81 Other malaise; J40 Bronchitis, not specified as acute or chronic; I10 Essential (primary) hypertension; E66.01 Morbid (severe) obesity due to excess calories; G47.33 Obstructive sleep apnea (adult) (pediatric); E11.65 Type 2 diabetes mellitus with hyperglycemia
CPT/HCPCS: 36000; 36415; 71045; 80053; 80061; 82962; 83036; 83721; 84443; 84484; 84703; 85025; 93005; 93041; 93268; 96374; 96375; 99285; G0378; J2270; J2405; J3010; A9270-GY

== ENCOUNTER 2017-10-14 19:17 | Emergency (ER) | payer OTHER ==
[2017-10-14] MEDS ORDERED: Sodium Chloride 0.9% 1000 ML 1,000 ML ONE (19:56)
--- NOTE | 2017-10-14 19:56 | ERPHSYRPT ---
- History of Present Illness Time Seen by Provider: 10/14/17 19:47 Historian: patient Exam Limitations: no limitations Patient Subjective Stated Complaint: pain in chest for past 3 days, states that the pain goes up middle of chest to middle of jaw to middle of back, took Nitro yesterday with no relief, didn't get out of bed until coming to hospital Triage Nursing Assessment: PT A&O x3, sinus tachy at 104, all other vitals wnl, lungs clear, no edema, pt states that she has a hx of afib, Physician History: 37-year-old morbidly obese white female arrives with complaint of substernal chest pain which radiates up to her jaw into her back described as sharp/dull/ worse with breathing symptoms going on for 3 days patient states she's been short of breath no nausea no vomiting. Past medical history includes atrial fibrillation ITP, asthma, hyperlipidemia, high blood pressure, bronchitis, COPD, diabetes, anxiety, depression, menstrual problems. Past surgical history is negative. Patient states she is on Xaralto Timing/Duration: day(s) (3 days) Activities at Onset: none Quality: dullness, sharpness Location: substernal Chest Pain Radiation: jaw, back Severity of Pain-Max: moderate Severity of Pain-Current: moderate Modifying Factors: Improves With: nothing Associated Symptoms: shortness of breath, hurts to breathe, No nausea, No vomiting, No palpitations, No heartburn, No abdominal pain, No cough, No diaphoresis, No chills, No fever, No fatigue, No weakness, No swelling/lump in chest, No syncope, No rash, No headache, No dizziness, No edema, No back pain Nitro Today/Relief: no nitro taken today Aspirin Treatment Today: no aspirin today (patient states she is allergic to aspirin) Allergies/Adverse Reactions: Sulfa (Sulfonamide Antibiotics) [Sulfa(Sulfonamide Antibiotics)] Allergy ( Verified 10/14/17 19:37) Rash aspirin Adverse Reaction (Severe, Verified 08/28/17 13:35) advised not to take it d/t it will cause her to bleed topiramate [From Topamax] Adverse Reaction (Verified 10/14/17 19:37) confusion Home Medications: Metformin HCl 500 mg [Glucophage 500 MG] 500 mg PO DAILY 07/14/14 [History ] Citalopram Hydrobromide 20 mg* [ceLEXa 20 MG] 20 mg PO DAILY 07/24/14 [ History] Lorazepam 0.5 mg [Ativan 0.5 MG] 0.5 mg PO TID 07/02/15 [History] Montelukast Sodium [Singulair] 10 mg PO DAILY 07/02/15 [History] Sitagliptin Phosphate [Januvia] 100 mg PO DAILY 07/08/15 [History] Famotidine 40 mg PO BID 03/09/16 [History] Metformin HCl 500 mg [Glucophage 500 MG] 250 mg PO HS 03/09/16 [History] Diphenhydramine HCl 25 mg [Benadryl 25 mg Capsule] 25 mg PO QHS 05/28/16 [ History] Folic Acid 0.8 mg PO DAILY 08/16/16 [History] Naproxen 375 mg [Naprosyn 375 mg] 375 mg PO BID 08/16/16 [History] Furosemide [Lasix] 20 mg PO DAILY 09/15/16 [History] SUMAtriptan succinate [Imitrex 50 mg] 50 mg PO DAILY PRN PRN 09/15/16 [History] Levothyroxine Sodium 75 Mcg [Synthroid 75 Mcg] 75 mcg DAILY 11/04/16 [ History] Gabapentin [Gralise] 300 mg PO BID 08/28/17 [History] Metoprolol Tartrate 25 mg [Lopressor 25MG Tab] 50 mg PO DAILY 08/28/17 [ History] Rivaroxaban 10 mg Tablet [Xarelto 10 mg Tablet] 20 mg PO DAILY 08/28/17 [ History] Topiramate 25 mg [Topamax 25 MG] 50 mg PO BID 10/14/17 [History] Hx Tetanus, Diphtheria Vaccination/Date Given: No Hx Influenza Vaccination/Date Given: Yes Hx Pneumococcal Vaccination/Date Given: No - Review of Systems Constitutional: No Fever, No Chills Eyes: No Symptoms Ears, Nose, & Throat: No Symptoms Respiratory: Dyspnea, No Cough, No Cyanosis, No Dyspnea on Exertion (MONZON), No Stridor, No Wheezing Cardiac: Chest Pain, No Edema, No Palpitations, No Syncope, No Orthopnea, No PND Abdominal/Gastrointestinal: No Abdominal Pain, No Nausea, No Vomiting, No Diarrhea Genitourinary Symptoms: No Dysuria Musculoskeletal: No Back Pain, No Neck Pain Skin: No Rash Neurological: No Dizziness, No Focal Weakness, No Sensory Changes Psychological: No Symptoms Endocrine: No Symptoms All Other Systems: Reviewed and Negative - Past Medical History Pertinent Past Medical History: Yes Neurological History: Migraines, Other ENT History: No Pertinent History Cardiac History: High Cholesterol, Hypertension, Other Respiratory History: Asthma, Bronchitis, COPD, Sleep Apnea Endocrine Medical History: Diabetes Type II, Hypothyroidism Musculoskeletal History: Other GI Medical History: No Pertinent History History: No Pertinent History Psycho-Social History: Anxiety, Depression Female Reproductive Disorders: Menstrual Problems, Other Other Medical History: ANEMIA. ITP - Past Surgical History Past Surgical History: No Neuro Surgical History: No Pertinent History Cardiac: No Pertinent History Respiratory: No Pertinent History Gastrointestinal: No Pertinent History Genitourinary: No Pertinent History Musculoskeletal: No Pertinent History Female Surgical History: No Pertinent History - Social History Smoking Status: Never smoker Exposure to second hand smoke: Yes Alcohol Use: None Drug Use: none Patient Lives Alone: No Significant Family History: no pertinent family hx - Female History Hx Last Menstrual Period: 2-3 weeks ago Hx Now: No - Nursing Vital Signs Nursing Vital Signs: Initial Vital Signs Temperature 98.6 F 10/14/17 19:19 Pulse Rate 104 H 10/14/17 19:19 Blood Pressure 100/73 10/14/17 19:19 O2 Sat by Pulse Oximetry 100 10/14/17 19:19 Pain Scale Pain Intensity 6 - Physical Exam General Appearance: other (morbidly obese white female alert 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 , mild distress) Eye Exam: PERRL/EOMI, eyes nml inspection Ears, Nose, Throat Exam: normal ENT inspection, moist mucous membranes Neck Exam: normal inspection, non-tender, supple, full range of motion Respiratory Exam: normal breath sounds, lungs clear, No respiratory distress Cardiovascular Exam: regular rate/rhythm, normal heart sounds Gastrointestinal/Abdomen Exam: soft, No tenderness, No mass Back Exam: normal inspection, No CVA tenderness, No vertebral tenderness Extremity Exam: normal inspection, normal range of motion Neurologic Exam: alert, 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, cooperative, 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, normal mood/affect, sensation nml, No motor deficits Skin Exam: normal color, warm, dry SpO2 Interpretation: normal (100%) SpO2: 100 Oxygen Delivery: Room Air - Course Nursing assessment & vital signs reviewed: Yes EKG Interpreted by Me: RATE (106 bpm), Sinus Tach, NORMAL AXIS, Other (EKG, sinus tachycardia, 106 bpm, normal axis, no acute ST or T wave changes,) - Radiology Exams Chest X-ray Interpretation: Reviewed by me, Other (no acute disease process noted) Ordered Tests: Active Orders 24 hr Category Date Time Status Vice President Medical Affairs STAT Care 10/14/17 19:50 Active EKG-ER Only STAT Care 10/14/17 19:49 Active IV Insertion STAT Care 10/14/17 19:49 Active Pulse Oximetry (ED) STAT Care 10/14/17 19:49 Active CHEST 1 VIEW (PORTABLE) Stat Exams 10/14/17 19:50 Taken CBC W DIFF Stat Lab 10/14/17 19:20 Completed CMP Stat Lab 10/14/17 19:20 Completed D-DIMER QUANTITATION Stat Lab 10/14/17 19:20 Completed HCG QUALITATIVE,SERUM Stat Lab 10/14/17 19:20 Completed PROTIME WITH INR Stat Lab 10/14/17 19:20 Completed PTT Stat Lab 10/14/17 19:20 Completed TROPONIN Q3H Lab 10/14/17 19:20 Completed TROPONIN Q3H Lab 10/14/17 23:00 Ordered TROPONIN Q3H Lab 10/15/17 02:00 Ordered TROPONIN Q3H Lab 10/15/17 05:00 Ordered TROPONIN Q3H Lab 10/15/17 08:00 Ordered Medication Summary Generic Name Dose Route Start Last Admin Trade Name Freq PRN Reason Stop Dose Admin Sodium Chloride 1,000 mls @ 100 mls/hr 10/14/17 20:00 10/14/17 19:57 Sodium Chloride 0.9% 1000 Ml IV 11/13/17 19:59 100 mls/hr .Q10H CAITY Administration Discontinued Medications Generic Name Dose Route Start Last Admin Trade Name Freq PRN Reason Stop Dose Admin Hydrocodone Bitart/Acetaminophen 1 tab 10/14/17 20:01 10/14/17 20:03 [place] 5/325 Mg PO 10/14/17 20:02 1 tab STAT ONE Administration Hydrocodone Bitart/Acetaminophen Confirm 10/14/17 20:03 [place] 5/325 Mg Administered 10/14/17 20:04 Dose 1 tab .ROUTE .STK-MED ONE Hydrocodone Bitart/Acetaminophen 2 tab 10/14/17 21:03 [place] 5/325 Mg PO 10/14/17 21:04 SENT HOME W/ PATIENT ONE Hydrocodone Bitart/Acetaminophen Confirm 10/14/17 21:10 [place] 5/325 Mg Administered 10/14/17 21:11 Dose 2 tab .ROUTE .STK-MED ONE Lab/Rad Data: Laboratory Result Diagrams 10/14/17 19:20 10/14/17 19:20 Laboratory Results 10/14/17 10/14/17 10/14/17 Range/Units 19:20 19:20 19:20 WBC (4.0-10.5) K/mm3 RBC (4.1-5.4) M/mm3 Hgb (12.0-16.0) gm/dl Hct (35-47) % MCV (78-100) fl MCH (26-32) pg MCHC (32-36) g/dl RDW (11.5-14.0) % Plt Count (150-450) K/mm3 MPV (6-9.5) fl Gran % (36.0-66.0) % Eos # (Auto) (0-0.5) Absolute Lymphs (auto) (1.0-4.6) Absolute Monos (auto) (0.0-1.3) Lymphocytes % (24.0-44.0) % Monocytes % (0.0-12.0) % Eosinophils % (0.00-5.0) % Basophils % (0.0-0.4) % Absolute Granulocytes (1.4-6.9) Basophils # (0-0.4) PT 12.9 H (9.95-12.35) SECONDS INR 1.16 (0.8-3.0) APTT 30.4 (25.3-37.0) SECONDS D-Dimer 323.18 (215-500) ng/mL Sodium (137-145) mmol/L Potassium (3.5-5.1) mmol/L Chloride (98-107) mmol/L Carbon Dioxide (22-30) mmol/L Anion Gap (5-15) MEQ/L BUN (7-17) mg/dL Creatinine (0.52-1.04) mg/dL Estimated GFR ML/MIN Glucose (74-106) mg/dL Calcium (8.4-10.2) mg/dL Total Bilirubin (0.2-1.3) mg/dL AST (14-36) U/L ALT (0-35) U/L Alkaline Phosphatase (38-126) U/L Troponin I < 0.012 (0.000-0.034) ng/mL Serum Total Protein (6.3-8.2) g/dL Albumin (3.5-5.0) g/dL Serum , Qual NEGATIVE (Negative) 10/14/17 10/14/17 Range/Units 19:20 19:20 WBC 12.6 H (4.0-10.5) K/mm3 RBC 4.07 L (4.1-5.4) M/mm3 Hgb 10.9 L (12.0-16.0) gm/dl Hct 33.9 L (35-47) % MCV 83.3 (78-100) fl MCH 26.7 (26-32) pg MCHC 32.2 (32-36) g/dl RDW 15.1 H (11.5-14.0) % Plt Count 311 (150-450) K/mm3 MPV 9.8 H (6-9.5) fl Gran % 76.1 H (36.0-66.0) % Eos # (Auto) 0.12 (0-0.5) Absolute Lymphs (auto) 2.12 (1.0-4.6) Absolute Monos (auto) 0.74 (0.0-1.3) Lymphocytes % 16.8 L (24.0-44.0) % Monocytes % 5.9 (0.0-12.0) % Eosinophils % 1.0 (0.00-5.0) % Basophils % 0.2 (0.0-0.4) % Absolute Granulocytes 9.60 H (1.4-6.9) Basophils # 0.02 (0-0.4) PT (9.95-12.35) SECONDS INR (0.8-3.0) APTT (25.3-37.0) SECONDS D-Dimer (215-500) ng/mL Sodium 139 (137-145) mmol/L Potassium 3.6 (3.5-5.1) mmol/L Chloride 107 (98-107) mmol/L Carbon Dioxide 22 (22-30) mmol/L Anion Gap 13.8 (5-15) MEQ/L BUN 23 H (7-17) mg/dL Creatinine 0.76 (0.52-1.04) mg/dL Estimated GFR > 60.0 ML/MIN Glucose 134 H (74-106) mg/dL Calcium 9.5 (8.4-10.2) mg/dL Total Bilirubin 0.40 (0.2-1.3) mg/dL AST 14 (14-36) U/L ALT 26 (0-35) U/L Alkaline Phosphatase 120 (38-126) U/L Troponin I (0.000-0.034) ng/mL Serum Total Protein 7.8 (6.3-8.2) g/dL Albumin 4.3 (3.5-5.0) g/dL Serum , Qual (Negative) - Progress Progress: improved Air Movement: fair Progress Note: 10/14/17 20:56 37-year-old white female with history of atrial fibrillation in the past ITP asthma hyperlipidemia high blood pressure bronchitis sleep apnea diabetes patient states she is she has had multiple episodes of chest pain she states she 's been worked up for this multiple time she arrives with complaint of anterior chest pain radiating to her jaw symptoms going on for 2-3 days she states she has shortness of breath with this On presentation patient with stable vitals EKG sinus tachycardia 10 6 bpm normal axis no acute ST or T wave changes noted chemistry is essentially normal glucose is 134 sodium 139 potassium 3.6 chloride 107 bicarbonate 22 BUN 23 creatinine 0.76 patient's d-dimer is within normal limits patient's troponin is less than 0.012 white blood cell count 12.6 hemoglobin 10.9 hematocrit 33.9 Patient's chest x-ray within normal limits Patient is markedly improved with one [place] tablet orally I have offered to and recommended to the patient that she's get a repeat troponin she does not want this she states she has had multiple presentations with the same complaints and has ruled out for heart problems. She is not having chest pain at this time she states she would like to go home and follow-up with her family doctor. I will write for a limited amount of [place] for the patient she states she has no problems with the [place] and is not having any issues with substance abuse. Will give patient 2 [place] tablets to take home with her write for a prescription for 8 [place] tablets 1 every 4-6 hours as needed for pain she is to contact her family doctor tomorrow morning and arrange follow-up. She is to return for acute distress or for severe symptoms. 10/14/17 21:01 Patient was not given aspirin she has a listed allergy to aspirin and she is on Xaralto - Departure Time of Disposition: 21:00 Departure Disposition: Home Clinical Impression: Morbid obesity Chest pain Qualifiers: Chest pain type: unspecified Qualified Code(s): R07.9 - Chest pain, unspecified Condition: Fair Critical Care Time: No Referrals: TIM MAGUIRE MD [Primary Care Provider] - Additional Instructions: Return home. Rest. Mans[place] 5/325 one orally every 4-6 hours as needed for pain. Follow-up with your family doctor call in the morning to arrange follow-up. Return for acute distress or for severe symptoms. Prescriptions: Hydrocodone/Acetaminophen [[place] 5-325 Tablet] 1 tab PO Q4-6HPRN PRN #8 tablet MDD 6 tablets PRN Reason: Pain
[2017-10-14] MEDS ORDERED: Sodium Chloride 0.9% 1000 ML 1,000 ML IV SCH (20:00)
[2017-10-14] MEDS ORDERED: NORCO 5/325 MG PO ONE ×2 (20:01→21:03)
[2017-10-14] MEDS ORDERED: NORCO 5/325 MG ONE ×2 (20:03→21:10)
[2017-10-14 20:04] LABS: BASOPHIL % 0.2 % (0.0-0.4); Basophil (Absolute #) 0.02 (0-0.4); Eosinophil (Absolute #) 0.12 (0-0.5); Granulocytes % 76.1 % (36.0-66.0); Hematocrit 33.9 % (35-47); Hemoglobin 10.9 gm/dl (12.0-16.0); Lymphocyte (Absolute #) 2.12 (1.0-4.6); Lymphocytes % 16.8 % (24.0-44.0); Mean Cell Volume 83.3 fl (78-100); Mean Corpuscular Hgb Concent. 32.2 g/dl (32-36); Mean Platelet Volume 9.8 fl (6-9.5); Monocyte (Absolute #) 0.74 (0.0-1.3); Monocytes % 5.9 % (0.0-12.0); Platelet Count 311 K/mm3 (150-450); Red Blood Count 4.07 M/mm3 (4.1-5.4); Red Cell Distribution Width 15.1 % (11.5-14.0); White Blood Count 12.6 K/mm3 (4.0-10.5)
[2017-10-14 20:08] LABS: Mean Corpuscular Hemoglobin 26.7 pg (26-32)
[2017-10-14 20:32] VITALS: O2SAT 100
[2017-10-14 20:33] LABS: ALBUMIN 4.3 g/dL (3.5-5.0); ALKALINE PHOSPHATASE 120 U/L (38-126); ANION GAP 13.8 MEQ/L (5-15); BLOOD UREA NITROGEN 23 mg/dL (7-17); CHLORIDE 107 mmol/L (98-107); Calcium 9.5 mg/dL (8.4-10.2); Carbon Dioxide 22 mmol/L (22-30); Creatinine 1 0.76 mg/dL (0.52-1.04); Glucose 134 mg/dL (74-106); Potassium 3.6 mmol/L (3.5-5.1); SGOT/AST 14 U/L (14-36); SGPT/ALT 26 U/L (0-35); SODIUM 139 mmol/L (137-145); Total Protein 7.8 g/dL (6.3-8.2)
[2017-10-14 20:41] LABS: INR 1.16 (0.8-3.0)
[2017-10-14 20:43] LABS: D-DIMER QUANTITATION 323.18 ng/mL (215-500)
[2017-10-14 20:44] LABS: PTT 30.4 SECONDS (25.3-37.0)
[2017-10-14 20:59] VITALS: BP 111/61; PULSE 93
--- NOTE | 2017-10-15 07:17 | XRAY ---
Indication: Chest pain and cough. Comparison: August 28, 2017. Portable chest again demonstrates normal heart and lungs. Bony thorax intact. No new/acute findings.
== END 2017-10-14 21:20 | disposition home or self-care (01) ==
LOC: ED 19:17
DX: R07.89 Other chest pain (principal); E66.01 Morbid (severe) obesity due to excess calories; Z79.899 Other long term (current) drug therapy; Z79.891 Long term (current) use of opiate analgesic; I10 Essential (primary) hypertension; E78.2 Mixed hyperlipidemia; J44.9 Chronic obstructive pulmonary disease, unspecified; E11.9 Type 2 diabetes mellitus without complications; Z79.01 Long term (current) use of anticoagulants
CPT/HCPCS: 36000; 36415; 71045; 80053; 84484; 84703; 85025; 85379; 85610; 85730; 93005; 93041; 99283; 99284; A9270-GY

== ENCOUNTER 2018-01-22 14:26 | Emergency (ER) | payer OTHER ==
--- NOTE | 2018-01-22 14:57 | ERPHSYRPT ---
- History of Present Illness Time Seen by Provider: 01/22/18 14:56 Source: patient Exam Limitations: no limitations Patient Subjective Stated Complaint: pt here for cough, sob, low grade fever, not eating well for a week, Triage Nursing Assessment: pt alert, resp labored with excertion,has frequent cough, nonproductive Physician History: pt here for cough, sob, low grade fever, not eating well for a week, Timing/Duration: week(s) Activities at Onset: none Severity of Dyspnea-Max: mild Severity of Dyspnea-Current: mild Possible Cause: occasional episodes Associated Symptoms: anxiety, cough, wheezing International travel in last 2 weeks: No Allergies/Adverse Reactions: Sulfa (Sulfonamide Antibiotics) [Sulfa(Sulfonamide Antibiotics)] Allergy ( Verified 01/22/18 14:39) Rash aspirin Adverse Reaction (Severe, Verified 01/22/18 14:39) advised not to take it d/t it will cause her to bleed Home Medications: Metformin HCl 500 mg [Glucophage 500 MG] 500 mg PO DAILY 07/14/14 [History ] Citalopram Hydrobromide 20 mg* [ceLEXa 20 MG] 20 mg PO DAILY 07/24/14 [ History] Lorazepam 0.5 mg [Ativan 0.5 MG] 0.5 mg PO TID 07/02/15 [History] Montelukast Sodium [Singulair] 10 mg PO DAILY 07/02/15 [History] Sitagliptin Phosphate [Januvia] 100 mg PO DAILY 07/08/15 [History] Famotidine 40 mg PO BID 03/09/16 [History] Metformin HCl 500 mg [Glucophage 500 MG] 250 mg PO HS 03/09/16 [History] Diphenhydramine HCl 25 mg [Benadryl 25 mg Capsule] 25 mg PO QHS 05/28/16 [ History] Folic Acid 0.8 mg PO DAILY 08/16/16 [History] Naproxen 375 mg [Naprosyn 375 mg] 375 mg PO BID 08/16/16 [History] Furosemide [Lasix] 20 mg PO DAILY 09/15/16 [History] SUMAtriptan succinate [Imitrex 50 mg] 50 mg PO DAILY PRN PRN 09/15/16 [History] Levothyroxine Sodium 75 Mcg [Synthroid 75 Mcg] 75 mcg DAILY 11/04/16 [ History] Gabapentin [Gralise] 300 mg PO BID 08/28/17 [History] Metoprolol Tartrate 25 mg [Lopressor 25MG Tab] 50 mg PO DAILY 08/28/17 [ History] Rivaroxaban 10 mg Tablet [Xarelto 10 mg Tablet] 20 mg PO DAILY 08/28/17 [ History] Topiramate 25 mg [Topamax 25 MG] 50 mg PO BID 10/14/17 [History] Hx Tetanus, Diphtheria Vaccination/Date Given: No Hx Influenza Vaccination/Date Given: Yes Hx Pneumococcal Vaccination/Date Given: Yes Immunizations Up to Date: Yes - Review of Systems Constitutional: No Fever, No Chills Eyes: No Symptoms Ears, Nose, & Throat: No Symptoms Respiratory: Cough, Dyspnea, Wheezing Cardiac: No Chest Pain, No Edema, No Syncope Abdominal/Gastrointestinal: No Abdominal Pain, No Nausea, No Vomiting, No Diarrhea Genitourinary Symptoms: No Dysuria Musculoskeletal: No Back Pain, No Neck Pain Skin: No Rash Neurological: No Dizziness, No Focal Weakness, No Sensory Changes Psychological: No Symptoms Endocrine: No Symptoms All Other Systems: Reviewed and Negative - Past Medical History Pertinent Past Medical History: Yes Neurological History: Migraines, Other ENT History: No Pertinent History Cardiac History: Arrhythmia, High Cholesterol, Hypertension, Other Respiratory History: Asthma, Bronchitis, COPD, Sleep Apnea Endocrine Medical History: Diabetes Type II, Hypothyroidism Musculoskeletal History: Other GI Medical History: No Pertinent History History: No Pertinent History Psycho-Social History: Anxiety, Depression Female Reproductive Disorders: Menstrual Problems, Other Other Medical History: ANEMIA,afib. ITP - Past Surgical History Past Surgical History: No Neuro Surgical History: No Pertinent History Cardiac: No Pertinent History Respiratory: No Pertinent History Gastrointestinal: No Pertinent History Genitourinary: No Pertinent History Musculoskeletal: No Pertinent History Female Surgical History: No Pertinent History - Social History Smoking Status: Never smoker Exposure to second hand smoke: Yes Alcohol Use: None Drug Use: none Patient Lives Alone: No Significant Family History: no pertinent family hx - Female History Hx Last Menstrual Period: 3 weeks ago Hx Now: No - Nursing Vital Signs Nursing Vital Signs: Initial Vital Signs Temperature 99.2 F 01/22/18 14:31 Pulse Rate 112 H 01/22/18 14:31 Respiratory Rate 28 H 01/22/18 14:31 Blood Pressure 149/107 01/22/18 14:31 O2 Sat by Pulse Oximetry 98 01/22/18 14:31 Pain Scale Pain Intensity 9 - Physical Exam General Appearance: no apparent distress, alert Eye Exam: PERRL/EOMI Neck Exam: normal inspection, supple Respiratory Exam: diminished breath sounds, rhonchi, wheezing Cardiovascular/Chest Exam: normal heart sounds, regular rate/rhythm Abdominal/Gastrointestinal Exam: soft, No tenderness, No distention, No mass Extremity Exam: non-tender, normal range of motion, normal inspection, no calf tenderness, no pedal edema Neurologic Exam: alert, 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, cooperative, 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, sensation nml, No motor deficits Skin Exam: normal color, warm, No dry SpO2 Interpretation: normal SpO2: 98 Oxygen Delivery: Room Air - Course Nursing assessment & vital signs reviewed: Yes - Radiology Exams Chest X-ray Interpretation: Reviewed by me, Negative, No Pneumonia, No Pneumothorax, No Infiltrates Ordered Tests: Active Orders 24 hr Category Date Time Status CHEST 2 VIEWS (PA AND LAT) Stat Exams 01/22/18 14:46 Taken BMP Stat Lab 01/22/18 15:00 Received CBC W DIFF Stat Lab 01/22/18 15:00 Completed Manual Differential NC Stat Lab 01/22/18 15:00 Completed Peak Expiratory Flow Rate ONCE RT 01/22/18 14:57 Completed Respiratory Nebulizer STAT RT 01/22/18 14:47 Completed Respiratory Therapy Assessment DAILY RT 01/22/18 14:57 Completed Medication Summary Discontinued Medications Generic Name Dose Route Start Last Admin Trade Name Freq PRN Reason Stop Dose Admin Albuterol/Ipratropium 3 ml 01/22/18 14:46 01/22/18 15:13 Duoneb 0.5-3 Mg/3 Ml Neb IH 01/22/18 14:47 3 ml STAT ONE Administration Albuterol/Ipratropium Confirm 01/22/18 15:03 Duoneb 0.5-3 Mg/3 Ml Neb Administered 01/22/18 15:04 Dose 3 ml IH .STK-MED ONE Guaifenesin/Codeine Phosphate 10 ml 01/22/18 14:49 Robitussin Ac Syrup Unit Dose Cup PO 01/22/18 14:50 STAT ONE Methylprednisolone Sodium Succinate 40 mg 01/22/18 14:46 Solu-Medrol 125 Mg IM 01/22/18 14:47 STAT ONE Lab/Rad Data: Laboratory Result Diagrams 01/22/18 15:00 Laboratory Results 01/22/18 Range/Units 15:00 WBC 8.5 (4.0-10.5) K/mm3 RBC 3.70 L (4.1-5.4) M/mm3 Hgb 9.9 L (12.0-16.0) gm/dl Hct 30.8 L (35-47) % MCV 83.2 (78-100) fl MCH 26.7 (26-32) pg MCHC 32.1 (32-36) g/dl RDW 15.4 H (11.5-14.0) % Plt Count 254 (150-450) K/mm3 MPV 9.4 (6-9.5) fl Absolute Granulocytes 6.25 (1.4-6.9) - Progress Progress: improved Air Movement: good Blood Culture(s) Obtained: No Antibiotics given: Yes Counseled pt/family regarding: lab results, diagnosis, need for follow-up, rad results - Departure Time of Disposition: 15:35 Departure Disposition: Home Clinical Impression: Acute bronchitis Qualifiers: Bronchitis organism: unspecified organism Qualified Code(s): J20.9 - Acute bronchitis, unspecified Condition: Stable Critical Care Time: No Referrals: TIM MAGUIRE MD [Primary Care Provider] - Instructions: Acute Bronchitis Forms: Work/School Release Form Prescriptions: Amoxicillin 500 mg Cap [Amoxil 500 mg] 500 mg PO TID #30 capsule Guaifenesin/Codeine Phos [Cheratussin AC Syrup] 5 ml PO Q6H #150 liquid
[2018-01-22] MEDS ORDERED: DUONEB 0.5-3 MG/3 ml Neb IH ONE (15:03)
[2018-01-22 15:13] LABS: Granulocyte Absolute (ANC) 6.25 (1.4-6.9); Hematocrit 30.8 % (35-47); Hemoglobin 9.9 gm/dl (12.0-16.0); Mean Cell Volume 83.2 fl (78-100); Mean Corpuscular Hgb Concent. 32.1 g/dl (32-36); Mean Platelet Volume 9.4 fl (6-9.5); Platelet Count 254 K/mm3 (150-450); Red Cell Distribution Width 15.4 % (11.5-14.0); White Blood Count 8.5 K/mm3 (4.0-10.5)
[2018-01-22] MEDS: DUONEB 0.5-3 MG/3 ml Neb IH ONE (15:13)
[2018-01-22 15:26] LABS: Mean Corpuscular Hemoglobin 26.7 pg (26-32)
[2018-01-22 15:31] LABS: ANION GAP 13.6 MEQ/L (5-15); BLOOD UREA NITROGEN 21 mg/dL (7-17); CHLORIDE 110 mmol/L (98-107); Calcium 9.1 mg/dL (8.4-10.2); Carbon Dioxide 20 mmol/L (22-30); Creatinine 1 0.73 mg/dL (0.52-1.04); Glucose 148 mg/dL (74-106); Potassium 3.6 mmol/L (3.5-5.1); SODIUM 141 mmol/L (137-145)
[2018-01-22] MEDS ORDERED: Robitussin AC Syrup Unit Dose Cup ONE (15:43)
[2018-01-22] MEDS ORDERED: solu-MEDROL 125 MG ONE (15:43)
[2018-01-22] MEDS: solu-MEDROL 125 MG IM ONE (15:44)
[2018-01-22] MEDS: Robitussin AC Syrup Unit Dose Cup PO ONE (15:44)
[2018-01-22 16:08] LABS: BAND 8 % (0.0-2.0); Hypochromia 1+; Lymphocytes 21 % (24-44); Monocyte 4 % (0.0-12.0); Neutrophils 67 % (36.0-66.0); Platelet Estimate NORMAL (NORMAL); Polychromasia 1+; Total Cells Counted 100
[2018-01-22] MEDS: Sodium Chloride 0.9% 1000 ML 1,000 ML IV SCH (16:14)
[2018-01-22 16:36] VITALS: BP 119/68; PULSE 84; O2SAT 95
--- NOTE | 2018-01-22 19:25 | XRAY ---
Indication: Short of breath. Comparison: October 14, 2017. PA/lateral chest again demonstrates normal heart and lungs. Bony thorax intact with minimal degenerative changes. No new/acute findings.
== END 2018-01-22 17:00 | disposition home or self-care (01) ==
LOC: ED 14:26
DX: J20.9 Acute bronchitis, unspecified (principal); F41.8 Other specified anxiety disorders; I10 Essential (primary) hypertension; I48.91 Unspecified atrial fibrillation; Z79.01 Long term (current) use of anticoagulants; Z79.899 Other long term (current) drug therapy; E78.00 Pure hypercholesterolemia, unspecified; J45.909 Unspecified asthma, uncomplicated; J44.9 Chronic obstructive pulmonary disease, unspecified; E03.9 Hypothyroidism, unspecified; G47.30 Sleep apnea, unspecified; E11.9 Type 2 diabetes mellitus without complications; Z79.4 Long term (current) use of insulin
CPT/HCPCS: 36415; 71046; 80048; 85025; 94150; 94640; 96372; 99284; J2930; A9270-GY

== ENCOUNTER 2018-02-16 13:23 | Emergency (ER) | payer OTHER ==
--- NOTE | 2018-02-16 13:32 | ERPHSYRPT ---
- History of Present Illness Time Seen by Provider: 02/16/18 13:24 Historian: patient, EMS, old records Exam Limitations: no limitations Physician History: CP substernal with radiation to left arm at rest today; can't take ASA due to allergy; took NTG - helped; no SOB; some nausea, no emesis; didn't take meds because of nausea; no diaporesis; similar to prior episodes; no hx of heart attacks; strong family hx; no trauma; no fever no chills; no different then prior episodes Timing/Duration: today, hour(s) (1-2) Activities at Onset: rest Quality: sharpness Location: substernal Chest Pain Radiation: arm (left) Severity of Pain-Max: moderate Severity of Pain-Current: mild Modifying Factors: Improves With: breathing, coughing, nitroglycerin Associated Symptoms: cough, hurts to breathe Prior Chest Pain/Cardiac Workup: non-cardiac Nitro Today/Relief: 0.4 mg x 1 Aspirin Treatment Today: no aspirin today Allergies/Adverse Reactions: Sulfa (Sulfonamide Antibiotics) [Sulfa(Sulfonamide Antibiotics)] Allergy ( Verified 02/16/18 13:47) Rash aspirin Adverse Reaction (Severe, Verified 02/16/18 13:47) advised not to take it d/t it will cause her to bleed Home Medications: Metformin HCl 500 mg [Glucophage 500 MG] 500 mg PO DAILY 07/14/14 [History ] Citalopram Hydrobromide 20 mg* [ceLEXa 20 MG] 20 mg PO DAILY 07/24/14 [ History] Lorazepam 0.5 mg [Ativan 0.5 MG] 0.5 mg PO TID 07/02/15 [History] Montelukast Sodium [Singulair] 10 mg PO DAILY 07/02/15 [History] Sitagliptin Phosphate [Januvia] 100 mg PO DAILY 07/08/15 [History] Famotidine 40 mg PO BID 03/09/16 [History] Metformin HCl 500 mg [Glucophage 500 MG] 250 mg PO HS 03/09/16 [History] Diphenhydramine HCl 25 mg [Benadryl 25 mg Capsule] 25 mg PO QHS 12/09/16 [ History] Folic Acid 0.8 mg PO DAILY 08/16/16 [History] Naproxen 375 mg [Naprosyn 375 mg] 375 mg PO BID 08/16/16 [History] Furosemide [Lasix] 20 mg PO DAILY 09/15/16 [History] SUMAtriptan succinate [Imitrex 50 mg] 50 mg PO DAILY PRN PRN 09/15/16 [History] Levothyroxine Sodium 75 Mcg [Synthroid 75 Mcg] 75 mcg DAILY 11/04/16 [ History] Gabapentin [Gralise] 300 mg PO BID 08/28/17 [History] Metoprolol Tartrate 25 mg [Lopressor 25MG Tab] 50 mg PO DAILY 08/28/17 [ History] Rivaroxaban 10 mg Tablet [Xarelto 10 mg Tablet] 20 mg PO DAILY 08/28/17 [ History] Topiramate 25 mg [Topamax 25 MG] 50 mg PO BID 10/14/17 [History] Hx Tetanus, Diphtheria Vaccination/Date Given: No Hx Influenza Vaccination/Date Given: Yes Hx Pneumococcal Vaccination/Date Given: Yes - Review of Systems Eyes: No Symptoms Ears, Nose, & Throat: No Symptoms Respiratory: Cough, No Cyanosis, No Dyspnea, No Wheezing Cardiac: Chest Pain, No Edema, No Palpitations, No Syncope, No Orthopnea Abdominal/Gastrointestinal: Nausea, No Abdominal Pain, No Vomiting, No Diarrhea Genitourinary Symptoms: No Symptoms Skin: No Symptoms Neurological: No Symptoms Psychological: No Symptoms Endocrine: No Symptoms Hematologic/Lymphatic: No Symptoms Immunological/Allergic: No Symptoms - Past Medical History Pertinent Past Medical History: Yes Neurological History: Migraines, Other ENT History: No Pertinent History Cardiac History: Arrhythmia, High Cholesterol, Hypertension, Other Respiratory History: Asthma, Bronchitis, COPD, Sleep Apnea Endocrine Medical History: Diabetes Type II, Hypothyroidism Musculoskeletal History: Other GI Medical History: No Pertinent History History: No Pertinent History Psycho-Social History: Anxiety, Depression Female Reproductive Disorders: Menstrual Problems, Other Other Medical History: ANEMIA,afib. ITP - Past Surgical History Past Surgical History: No Neuro Surgical History: No Pertinent History Cardiac: No Pertinent History Respiratory: No Pertinent History Gastrointestinal: No Pertinent History Genitourinary: No Pertinent History Musculoskeletal: No Pertinent History Female Surgical History: No Pertinent History - Social History Smoking Status: Never smoker Exposure to second hand smoke: Yes Alcohol Use: None Drug Use: none Patient Lives Alone: No Significant Family History: no pertinent family hx, heart disease, hypertension - Nursing Vital Signs Nursing Vital Signs: Initial Vital Signs Pulse Rate 80 02/16/18 13:39 Respiratory Rate 20 02/16/18 13:39 Blood Pressure 140/85 02/16/18 13:39 O2 Sat by Pulse Oximetry 98 02/16/18 13:39 Pain Scale Pain Intensity 6 - Physical Exam General Appearance: mild distress, alert, obese Eye Exam: PERRL/EOMI, eyes nml inspection Ears, Nose, Throat Exam: normal ENT inspection, TMs normal, pharynx normal, moist mucous membranes Neck Exam: normal inspection, non-tender, supple, full range of motion, No meningismus, No carotid bruit, No JVD Respiratory Exam: normal breath sounds, chest tenderness (left sternal margin - duplicates pain), lungs clear, airway intact, No respiratory distress, No crackles/rales, No rhonchi, No wheezing, No stridor, No pleural rub Cardiovascular Exam: regular rate/rhythm, normal heart sounds, normal peripheral pulses, capillary refill <2 sec, No murmur, No friction rub Gastrointestinal/Abdomen Exam: soft, normal bowel sounds, No tenderness, No guarding, No rebound, No organomegaly Pelvic Exam: deferred Rectal Exam: deferred Back Exam: normal inspection, normal range of motion, No CVA tenderness, No vertebral tenderness, No rash Extremity Exam: normal inspection, normal range of motion, No oleg's sign, No pedal edema Neurologic Exam: alert, 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, cooperative, 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, normal mood/affect Skin Exam: normal color, warm, dry, No rash, No petechiae, No cyanosis SpO2 Interpretation: normal SpO2: 98 Oxygen Delivery: Room Air - Course Nursing assessment & vital signs reviewed: Yes EKG Interpreted by Me: RATE (78), Sinus Rhythm, NORMAL AXIS, NORMAL INTERVALS, NORMAL QRS, Non-specific ST Changes, Other (compared to 10-14-17 no acute change) Rhythm Strip: Rate (78), Normal Sinus Rhythm - Radiology Exams Chest X-ray Interpretation: Discussed w/ radiologist, Teleradiologist Report, Negative , No Pneumonia, No Pneumothorax, Nml Alignment, Nml Heart Size, No Infiltrates, Nml Mediastinum Ordered Tests: Active Orders 24 hr Category Date Time Status Chief Petroleum Engineer STAT Care 02/16/18 13:25 Active EKG-ER Only STAT Care 02/16/18 13:25 Active Pulse Oximetry (ED) STAT Care 02/16/18 13:25 Active Re-Check Vital Signs STAT Care 02/16/18 13:25 Active CHEST 1 VIEW (PORTABLE) Stat Exams 02/16/18 13:37 Completed CBC W DIFF Stat Lab 02/16/18 13:56 Completed CMP Stat Lab 02/16/18 13:56 Completed Manual Differential NC Stat Lab 02/16/18 13:56 Completed NT PRO BNP Stat Lab 02/16/18 13:56 Completed TROPONIN Q3H Lab 02/16/18 13:56 Completed TROPONIN Q3H Lab 02/16/18 16:45 Ordered TROPONIN Q3H Lab 02/16/18 19:45 Ordered TROPONIN Q3H Lab 02/16/18 22:45 Ordered TROPONIN Q3H Lab 02/17/18 01:45 Ordered Medication Summary Discontinued Medications Generic Name Dose Route Start Last Admin Trade Name Freq PRN Reason Stop Dose Admin Nitroglycerin 1 gm 02/16/18 13:37 02/16/18 13:52 Nitro-Bid 2% Ud Packets TOP 02/16/18 13:38 1 gm STAT ONE Administration Nitroglycerin Confirm 02/16/18 13:48 Nitro-Bid 2% Ud Packets Administered 02/16/18 13:49 Dose 1 gm .ROUTE .STK-MED ONE Promethazine HCl 12.5 mg 02/16/18 13:44 02/16/18 13:52 Phenergan 25 Mg Inj IV 02/16/18 13:45 12.5 mg STAT ONE Administration Promethazine HCl Confirm 02/16/18 13:48 Phenergan 25 Mg Inj Administered 02/16/18 13:49 Dose 25 mg .ROUTE .STK-MED ONE Lab/Rad Data: Laboratory Result Diagrams 02/16/18 13:56 02/16/18 13:56 Laboratory Results 02/16/18 02/16/18 02/16/18 Range/Units 13:56 13:56 13:56 WBC 6.9 (4.0-10.5) K/mm3 RBC 3.75 L (4.1-5.4) M/mm3 Hgb 10.0 L (12.0-16.0) gm/dl Hct 31.7 L (35-47) % MCV 84.5 (78-100) fl MCH 26.6 (26-32) pg MCHC 31.5 L (32-36) g/dl RDW 15.5 H (11.5-14.0) % Plt Count 244 (150-450) K/mm3 MPV 9.0 (6-9.5) fl Sodium 141 (137-145) mmol/L Potassium 4.1 (3.5-5.1) mmol/L Chloride 111 H (98-107) mmol/L Carbon Dioxide 21 L (22-30) mmol/L Anion Gap 12.3 (5-15) MEQ/L BUN 25 H (7-17) mg/dL Creatinine 0.71 (0.52-1.04) mg/dL Estimated GFR > 60.0 ML/MIN Glucose 161 H (74-106) mg/dL Calcium 8.9 (8.4-10.2) mg/dL Total Bilirubin 0.20 (0.2-1.3) mg/dL AST 19 (14-36) U/L ALT 35 (0-35) U/L Alkaline Phosphatase 119 (38-126) U/L Troponin I < 0.012 (0.000-0.034) ng/mL NT-Pro-B Natriuret Pep 184 (0-450) pg/mL Serum Total Protein 6.7 (6.3-8.2) g/dL Albumin 3.8 (3.5-5.0) g/dL review - Progress Progress: improved (after meds), re-examined (after meds) Air Movement: good Progress Note: 02/16/18 13:54 will give NTG and phenergan for CP and nausea; no ASA due to hx; ekg ok; labs pending; cxr ok; sats good, no SOB will recheck 02/16/18 14:38 feeling better after meds; vs ok; cxr and ekg ok; labs pending 02/16/18 15:02 improved post meds; mild anemia; glu up mild at 161, bun up at 25, cr ok; lytes ok, liver fx ok, no chf; troponin pending; family at bedside 02/16/18 15:15 feeling better; troponin ok; vs ok discussed results, treatment plan and instructions Blood Culture(s) Obtained: No Antibiotics given: No Counseled pt/family regarding: lab results, diagnosis, need for follow-up, rad results - Departure Time of Disposition: 15:16 Departure Disposition: Home Clinical Impression: Chest pain, Type 2 diabetes mellitus with hyperglycemia, without long-term current use of insulin, Hypertension, Morbid obesity, Acute costochondritis Condition: Stable Critical Care Time: No Referrals: TIM MAGUIRE MD [Primary Care Provider] - Instructions: Atypical Chest Pain Additional Instructions: Follow-up with family doctor as directed. Call for appointment. Return if any problems. If you smoke please stop. Call or follow up with your family doctor for assistance if you need it to stop. Please wear your seatbelt when driving. Have a nice day. Thank you for allowing us to participate in your care today. :o) Dr Jhoan Saleem
[2018-02-16] MEDS ORDERED: NITRO-BID 2% UD PACKETS TOP ONE (13:37)
[2018-02-16] MEDS ORDERED: Phenergan 25 MG INJ IV ONE (13:44)
[2018-02-16] MEDS ORDERED: NITRO-BID 2% UD PACKETS ONE (13:48)
[2018-02-16] MEDS ORDERED: Phenergan 25 MG INJ ONE (13:48)
[2018-02-16 13:58] LABS: Hematocrit 31.7 % (35-47); Mean Cell Volume 84.5 fl (78-100); Mean Corpuscular Hgb Concent. 31.5 g/dl (32-36); Platelet Count 244 K/mm3 (150-450); Red Blood Count 3.75 M/mm3 (4.1-5.4); Red Cell Distribution Width 15.5 % (11.5-14.0); White Blood Count 6.9 K/mm3 (4.0-10.5)
[2018-02-16 13:59] LABS: Mean Corpuscular Hemoglobin 26.6 pg (26-32)
--- NOTE | 2018-02-16 14:12 | XRAY ---
Indication: Chest pain. History asthma and COPD. Comparison: January 22, 2018. Portable apical lordotic chest again demonstrates normal heart and lungs. Bony thorax intact. No new/acute findings.
[2018-02-16 14:25] LABS: ALBUMIN 3.8 g/dL (3.5-5.0); ALKALINE PHOSPHATASE 119 U/L (38-126); ANION GAP 12.3 MEQ/L (5-15); BLOOD UREA NITROGEN 25 mg/dL (7-17); CHLORIDE 111 mmol/L (98-107); Calcium 8.9 mg/dL (8.4-10.2); Carbon Dioxide 21 mmol/L (22-30); Creatinine 1 0.71 mg/dL (0.52-1.04); Glucose 161 mg/dL (74-106); NT PRO BNP 184 pg/mL (0-450); Potassium 4.1 mmol/L (3.5-5.1); SGOT/AST 19 U/L (14-36); SGPT/ALT 35 U/L (0-35); SODIUM 141 mmol/L (137-145); Total Protein 6.7 g/dL (6.3-8.2)
[2018-02-16 15:00] VITALS: BP 111/56; PULSE 75
[2018-02-16 15:04] VITALS: O2SAT 98
[2018-02-16 15:15] LABS: ANISOCYTOSIS 1+; BAND 1 % (0.0-2.0); Eosinophil 3 % (0.00-3.0); Lymphocytes 17 % (24-44); Monocyte 4 % (0.0-12.0); Neutrophils 75 % (36.0-66.0); Total Cells Counted 100
[2018-02-16 15:16] LABS: Platelet Estimate NORMAL (NORMAL)
== END 2018-02-16 15:26 | disposition home or self-care (01) ==
LOC: ED 13:23
DX: R07.9 Chest pain, unspecified (principal); E11.65 Type 2 diabetes mellitus with hyperglycemia; D64.9 Anemia, unspecified; M94.0 Chondrocostal junction syndrome [Tietze]; I10 Essential (primary) hypertension; E66.01 Morbid (severe) obesity due to excess calories; Z79.899 Other long term (current) drug therapy; Z79.84 Long term (current) use of oral hypoglycemic drugs
CPT/HCPCS: 36000; 36415; 71045; 80053; 83880; 84484; 85025; 93005; 93041; 96374; 99284; J2550; A9270-GY

== ENCOUNTER 2018-07-15 12:38 | Emergency (ER) | payer OTHER ==
--- NOTE | 2018-07-15 13:00 | ERPHSYRPT ---
- History of Present Illness Time Seen by Provider: 07/15/18 12:50 Historian: patient, family Exam Limitations: no limitations Physician History: 38 y/o morbidly obese white female presents with right upper quad abd pain. began a few days ago. pt did fall onto that site a few days ago after slipping on the ice. pt has had vomiting. no diarrhea. no flu like sx. no h/o of abd surgeries. no dysuria or hematuria. no flank pain. Timing/Duration: day(s) (a few days) Abdominal Pain Onset Location: RUQ Pain Radiation: no radiation Severity of Pain-Max: moderate Severity of Pain-Current: moderate Modifying Factors: Improves With: vomiting Associated Symptoms: loss of appetite, nausea, vomiting, No diarrhea Previous symptoms: no prior history Allergies/Adverse Reactions: Sulfa (Sulfonamide Antibiotics) [Sulfa(Sulfonamide Antibiotics)] Allergy ( Verified 07/15/18 13:01) Rash aspirin Adverse Reaction (Severe, Verified 07/15/18 13:01) advised not to take it d/t it will cause her to bleed Home Medications: Metformin HCl 500 mg [Glucophage 500 MG] 500 mg PO DAILY 07/14/14 [History ] Citalopram Hydrobromide 20 mg* [ceLEXa 20 MG] 20 mg PO DAILY 07/24/14 [ History] Lorazepam 0.5 mg [Ativan 0.5 MG] 0.5 mg PO TID 07/02/15 [History] Montelukast Sodium [Singulair] 10 mg PO DAILY 07/02/15 [History] Sitagliptin Phosphate [Januvia] 100 mg PO DAILY 07/08/15 [History] Famotidine 40 mg PO BID 03/09/16 [History] Metformin HCl 500 mg [Glucophage 500 MG] 250 mg PO HS 03/09/16 [History] Diphenhydramine HCl 25 mg [Benadryl 25 mg Capsule] 25 mg PO QHS 05/28/16 [ History] Folic Acid 0.8 mg PO DAILY 08/16/16 [History] Naproxen 375 mg [Naprosyn 375 mg] 375 mg PO BID 08/16/16 [History] Furosemide [Lasix] 20 mg PO DAILY 09/15/16 [History] SUMAtriptan succinate [Imitrex 50 mg] 50 mg PO DAILY PRN PRN 09/15/16 [History] Levothyroxine Sodium 75 Mcg [Synthroid 75 Mcg] 75 mcg DAILY 11/04/16 [ History] Gabapentin [Gralise] 300 mg PO BID 08/28/17 [History] Metoprolol Tartrate 25 mg [Lopressor 25MG Tab] 50 mg PO DAILY 08/28/17 [ History] Rivaroxaban 10 mg Tablet [Xarelto 10 mg Tablet] 20 mg PO DAILY 08/28/17 [ History] Topiramate 25 mg [Topamax 25 MG] 50 mg PO BID 10/14/17 [History] Hx Tetanus, Diphtheria Vaccination/Date Given: No Hx Influenza Vaccination/Date Given: Yes Hx Pneumococcal Vaccination/Date Given: Yes - Review of Systems Constitutional: No Symptoms Eyes: No Symptoms Ears, Nose, & Throat: No Symptoms Respiratory: No Symptoms Cardiac: No Symptoms Abdominal/Gastrointestinal: Abdominal Pain (right upper quad), Nausea, Vomiting , No Diarrhea, No Constipation Genitourinary Symptoms: No Symptoms Musculoskeletal: No Symptoms Skin: No Symptoms Neurological: No Symptoms Psychological: No Symptoms Endocrine: No Symptoms Hematologic/Lymphatic: No Symptoms Immunological/Allergic: No Symptoms All Other Systems: Reviewed and Negative - Past Medical History Pertinent Past Medical History: Yes Neurological History: Migraines, Other ENT History: No Pertinent History Cardiac History: Arrhythmia, High Cholesterol, Hypertension, Other Respiratory History: Asthma, Bronchitis, COPD, Sleep Apnea Endocrine Medical History: Diabetes Type II, Hypothyroidism Musculoskeletal History: Other GI Medical History: No Pertinent History History: No Pertinent History Psycho-Social History: Anxiety, Depression Female Reproductive Disorders: Menstrual Problems, Other Other Medical History: ANEMIA,afib. ITP - Past Surgical History Past Surgical History: No Neuro Surgical History: No Pertinent History Cardiac: No Pertinent History Respiratory: No Pertinent History Gastrointestinal: No Pertinent History Genitourinary: No Pertinent History Musculoskeletal: No Pertinent History Female Surgical History: No Pertinent History - Social History Smoking Status: Never smoker Exposure to second hand smoke: Yes Alcohol Use: None Drug Use: none Patient Lives Alone: No Significant Family History: no pertinent family hx, heart disease, hypertension - Nursing Vital Signs Nursing Vital Signs: Initial Vital Signs Temperature 97.8 F 07/15/18 12:53 Pulse Rate 89 07/15/18 12:53 Respiratory Rate 18 07/15/18 12:53 Blood Pressure 113/71 07/15/18 12:53 O2 Sat by Pulse Oximetry 98 07/15/18 12:53 Pain Scale Pain Intensity 6 - Physical Exam General Appearance: mild distress, alert, anxiety Eye Exam: PERRL/EOMI Ears, Nose, Throat Exam: normal ENT inspection, moist mucous membranes Neck Exam: normal inspection, non-tender, supple, full range of motion Respiratory Exam: normal breath sounds, lungs clear, airway intact, No chest tenderness, No respiratory distress, No accessory muscle use, No rhonchi, No wheezing, No stridor Cardiovascular Exam: regular rate/rhythm, normal heart sounds, normal peripheral pulses Gastrointestinal/Abdomen Exam: soft, normal bowel sounds, tenderness (right upper quad), guarding, No rebound Pelvic Exam: not done Rectal Exam: not done Back Exam: normal inspection, normal range of motion, No CVA tenderness, No vertebral tenderness Extremity Exam: normal inspection, normal range of motion, pelvis stable Neurologic Exam: alert, 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, cooperative, 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 tested Skin Exam: normal color, warm, dry Lymphatic Exam: adenopathy SpO2 Interpretation: normal O2 Delivery: Room Air - Course Nursing assessment & vital signs reviewed: Yes Ordered Tests: Active Orders 24 hr Category Date Time Status Clean Catch Urine Specimen STAT Care 07/15/18 13:01 Active IV Insertion STAT Care 07/15/18 13:01 Active ABDOMEN AND PELVIS W/0 CONTRAS [CT] Stat Exams 07/15/18 13:01 Taken AMYLASE Stat Lab 07/15/18 12:50 Completed CBC W DIFF Stat Lab 07/15/18 12:50 Completed CMP Stat Lab 07/15/18 12:50 Completed CULTURE,URINE Stat Lab 07/15/18 12:50 Received HCG,QUALITATIVE URINE Stat Lab 07/15/18 12:50 Completed LIPASE Stat Lab 07/15/18 12:50 Completed Lactic Acid Stat Lab 07/15/18 13:01 Completed UA W/RFX UR CULTURE Stat Lab 07/15/18 12:50 Completed Medication Summary Discontinued Medications Generic Name Dose Route Start Last Admin Trade Name Freq PRN Reason Stop Dose Admin Hydromorphone HCl 1 mg 07/15/18 13:01 07/15/18 13:12 Hydromorphone 1 Mg/Ml Ampule IV 07/15/18 13:02 1 mg STAT ONE Administration Hydromorphone HCl Confirm 07/15/18 13:05 Hydromorphone 1 Mg/Ml Ampule Administered 07/15/18 13:06 Dose 1 mg .ROUTE .STK-MED ONE Sodium Chloride 1,000 mls @ 999 mls/hr 07/15/18 13:01 07/15/18 13:13 Sodium Chloride 0.9% 1000 Ml IV 07/15/18 14:01 999 mls/hr .Q1H1M STA Administration Sodium Chloride Confirm 07/15/18 13:05 Sodium Chloride 0.9% 1000 Ml Administered 07/15/18 13:06 Dose 1,000 mls @ ud .ROUTE .STK-MED ONE Ceftriaxone Sodium/Dextrose 1 g in 50 mls @ 100 mls/hr 07/15/18 13:54 14:21 Rocephin 1 Gm-D5w 50 Ml Bag IV 07/15/18 14:23 100 ml/hr STAT STA 100 mls/hr Administration Ceftriaxone Sodium/Dextrose Confirm 07/15/18 14:19 Rocephin 1 Gm-D5w 50 Ml Bag Administered 07/15/18 14:20 Dose 1 g in 50 mls @ ud IV .STK-MED ONE Ondansetron HCl 4 mg 07/15/18 13:01 07/15/18 13:12 Zofran 4 Mg/2 Ml Vial IV 07/15/18 13:02 4 mg STAT ONE Administration Ondansetron HCl Confirm 07/15/18 13:05 Zofran 4 Mg/2 Ml Vial Administered 07/15/18 13:06 Dose 4 mg .ROUTE .STK-MED ONE Lab/Rad Data: Laboratory Result Diagrams 07/15/18 12:50 07/15/18 12:50 Laboratory Results 07/15/18 07/15/18 07/15/18 Range/Units 13:01 12:50 12:50 WBC (4.0-10.5) K/mm3 RBC (4.1-5.4) M/mm3 Hgb (12.0-16.0) gm/dl Hct (35-47) % MCV (78-100) fl MCH (26-32) pg MCHC (32-36) g/dl RDW (11.5-14.0) % Plt Count (150-450) K/mm3 MPV (6-9.5) fl Gran % (36.0-66.0) % Eos # (Auto) (0-0.5) Absolute Lymphs (auto) (1.0-4.6) Absolute Monos (auto) (0.0-1.3) Lymphocytes % (24.0-44.0) % Monocytes % (0.0-12.0) % Eosinophils % (0.00-5.0) % Basophils % (0.0-0.4) % Absolute Granulocytes (1.4-6.9) Basophils # (0-0.4) Sodium (137-145) mmol/L Potassium (3.5-5.1) mmol/L Chloride (98-107) mmol/L Carbon Dioxide (22-30) mmol/L Anion Gap (5-15) MEQ/L BUN (7-17) mg/dL Creatinine (0.52-1.04) mg/dL Estimated GFR ML/MIN Glucose (74-106) mg/dL Lactic Acid 0.8 (0.4-2.0) Calcium (8.4-10.2) mg/dL Total Bilirubin (0.2-1.3) mg/dL AST (14-36) U/L ALT (0-35) U/L Alkaline Phosphatase (38-126) U/L Serum Total Protein (6.3-8.2) g/dL Albumin (3.5-5.0) g/dL Amylase (30-110) U/L Lipase (23-300) U/L Urine Color YELLOW (YELLOW) Urine Appearance CLOUDY (CLEAR) Urine pH 5.0 (5-6) Ur Specific [place] 1.029 (1.005-1.025) Urine Protein 100 (Negative) Urine Ketones NEGATIVE (NEGATIVE) Urine Blood NEGATIVE (0-5) [place]/ul Urine Nitrite NEGATIVE (NEGATIVE) Urine Bilirubin NEGATIVE (NEGATIVE) Urine Urobilinogen 2 (0-1) mg/dL Ur Leukocyte Esterase MODERATE (NEGATIVE) Urine WBC (Auto) 6-10 (0-5) /HPF Urine RBC (Auto) NONE (0-2) /HPF U Epithel Cells (Auto) MANY (FEW) /HPF Urine Bacteria (Auto) MODERATE (NEGATIVE) /HPF Urine Mucus (Auto) SLIGHT (NEGATIVE) /HPF Urine Culture Reflexed YES (NO) Urine Glucose NEGATIVE (NEGATIVE) mg/dL Urine HCG, Qual NEGATIVE (Negative) 07/15/18 07/15/18 Range/Units 12:50 12:50 WBC 5.4 (4.0-10.5) K/mm3 RBC 4.08 L (4.1-5.4) M/mm3 Hgb 10.5 L (12.0-16.0) gm/dl Hct 34.2 L (35-47) % MCV 83.8 (78-100) fl MCH 25.7 L (26-32) pg MCHC 30.7 L (32-36) g/dl RDW 15.8 H (11.5-14.0) % Plt Count 279 (150-450) K/mm3 MPV 9.5 (6-9.5) fl Gran % 61.0 (36.0-66.0) % Eos # (Auto) 0.13 (0-0.5) Absolute Lymphs (auto) 1.57 (1.0-4.6) Absolute Monos (auto) 0.37 (0.0-1.3) Lymphocytes % 29.3 (24.0-44.0) % Monocytes % 6.9 (0.0-12.0) % Eosinophils % 2.4 (0.00-5.0) % Basophils % 0.4 (0.0-0.4) % Absolute Granulocytes 3.26 (1.4-6.9) Basophils # 0.02 (0-0.4) Sodium 141 (137-145) mmol/L Potassium 3.5 (3.5-5.1) mmol/L Chloride 110 H (98-107) mmol/L Carbon Dioxide 20 L (22-30) mmol/L Anion Gap 14.1 (5-15) MEQ/L BUN 16 (7-17) mg/dL Creatinine 0.64 (0.52-1.04) mg/dL Estimated GFR > 60.0 ML/MIN Glucose 135 H (74-106) mg/dL Lactic Acid (0.4-2.0) Calcium 8.3 L (8.4-10.2) mg/dL Total Bilirubin 0.40 (0.2-1.3) mg/dL AST 17 (14-36) U/L ALT 25 (0-35) U/L Alkaline Phosphatase 115 (38-126) U/L Serum Total Protein 7.7 (6.3-8.2) g/dL Albumin 4.3 (3.5-5.0) g/dL Amylase 47 (30-110) U/L Lipase 40 (23-300) U/L Urine Color (YELLOW) Urine Appearance (CLEAR) Urine pH (5-6) Ur Specific [place] (1.005-1.025) Urine Protein (Negative) Urine Ketones (NEGATIVE) Urine Blood (0-5) Chago/ul Urine Nitrite (NEGATIVE) Urine Bilirubin (NEGATIVE) Urine Urobilinogen (0-1) mg/dL Ur Leukocyte Esterase (NEGATIVE) Urine WBC (Auto) (0-5) /HPF Urine RBC (Auto) (0-2) /HPF U Epithel Cells (Auto) (FEW) /HPF Urine Bacteria (Auto) (NEGATIVE) /HPF Urine Mucus (Auto) (NEGATIVE) /HPF Urine Culture Reflexed (NO) Urine Glucose (NEGATIVE) mg/dL Urine HCG, Qual (Negative) - Progress Progress: improved, re-examined Counseled pt/family regarding: lab results, diagnosis, need for follow-up, rad results - Departure Time of Disposition: 14:57 Departure Disposition: Home Clinical Impression: UTI (urinary tract infection) Condition: Stable Critical Care Time: No Referrals: TIM MAGUIRE MD [Primary Care Provider] - Additional Instructions: drink plenty of fluids. take your medications as prescribed. follow up with your primary doctor for further management Prescriptions: Promethazine HCl 25 mg [Phenergan 25 mg] 25 mg PO Q8H PRN PRN #10 tablet PRN Reason: Nausea/Vomiting Ciprofloxacin [Cipro 500 MG] 500 mg PO BID #14 tablet
[2018-07-15] MEDS ORDERED: Hydromorphone 1 mg/ml Ampule IV ONE (13:01)
[2018-07-15] MEDS ORDERED: Sodium Chloride 0.9% 1000 ML 1,000 ML IV STA (13:01)
[2018-07-15] MEDS ORDERED: Zofran 4 MG/2 ML VIAL IV ONE (13:01)
[2018-07-15] MEDS ORDERED: Zofran 4 MG/2 ML VIAL ONE (13:05)
[2018-07-15] MEDS ORDERED: Hydromorphone 1 mg/ml Ampule ONE (13:05)
[2018-07-15] MEDS ORDERED: Sodium Chloride 0.9% 1000 ML 1,000 ML ONE (13:05)
[2018-07-15 13:17] LABS: BASOPHIL % 0.4 % (0.0-0.4); Basophil (Absolute #) 0.02 (0-0.4); Eosinophil % 2.4 % (0.00-5.0); Eosinophil (Absolute #) 0.13 (0-0.5); Granulocyte Absolute (ANC) 3.26 (1.4-6.9); Hematocrit 34.2 % (35-47); Hemoglobin 10.5 gm/dl (12.0-16.0); Lymphocyte (Absolute #) 1.57 (1.0-4.6); Lymphocytes % 29.3 % (24.0-44.0); Mean Cell Volume 83.8 fl (78-100); Mean Corpuscular Hemoglobin 25.7 pg (26-32); Mean Corpuscular Hgb Concent. 30.7 g/dl (32-36); Mean Platelet Volume 9.5 fl (6-9.5); Monocyte (Absolute #) 0.37 (0.0-1.3); Monocytes % 6.9 % (0.0-12.0); Platelet Count 279 K/mm3 (150-450); Red Blood Count 4.08 M/mm3 (4.1-5.4); Red Cell Distribution Width 15.8 % (11.5-14.0); White Blood Count 5.4 K/mm3 (4.0-10.5)
[2018-07-15 13:22] LABS: Appearance CLOUDY (CLEAR); Bacteria MODERATE /HPF (NEGATIVE); Bilirubin NEGATIVE (NEGATIVE); Blood NEGATIVE Ery/ul (0-5); Epithelial Cells MANY /HPF (FEW); Glucose NEGATIVE (NEGATIVE); Ketones NEGATIVE (NEGATIVE); Leukocyte Esterase MODERATE (NEGATIVE); Mucus SLIGHT /HPF (NEGATIVE); Nitrite NEGATIVE (NEGATIVE); Protein,Urine Dip 100 (Negative); Specific Gravity 1.029 (1.005-1.025); Urobilinogen 2 mg/dL (0-1)
[2018-07-15 13:45] LABS: ALBUMIN 4.3 g/dL (3.5-5.0); ALKALINE PHOSPHATASE 115 U/L (38-126); AMYLASE 47 U/L (30-110); ANION GAP 14.1 MEQ/L (5-15); BLOOD UREA NITROGEN 16 mg/dL (7-17); CHLORIDE 110 mmol/L (98-107); Calcium 8.3 mg/dL (8.4-10.2); Carbon Dioxide 20 mmol/L (22-30); Creatinine 1 0.64 mg/dL (0.52-1.04); Glucose 135 mg/dL (74-106); LIPASE 40 U/L (23-300); Potassium 3.5 mmol/L (3.5-5.1); SGOT/AST 17 U/L (14-36); SGPT/ALT 25 U/L (0-35); SODIUM 141 mmol/L (137-145); Total Protein 7.7 g/dL (6.3-8.2)
[2018-07-15] MEDS ORDERED: ROCEPHIN 1 Gm-D5w 50 ml Bag** 1 G/50 ML IVPB IV STA (13:54)
[2018-07-15] MEDS ORDERED: ROCEPHIN 1 Gm-D5w 50 ml Bag** 1 G/50 ML IVPB IV ONE (14:19)
[2018-07-15 15:11] VITALS: BP 114/90; PULSE 70; O2SAT 97
--- NOTE | 2018-07-15 20:07 | XRAY ---
Indication: Right abdominal pain. Nausea and vomiting. Multiple contiguous axial images obtained through the abdomen and pelvis without contrast as ordered. Comparison: June 21, 2016. Lung bases clear. Heart is not enlarged. Noncontrasted stomach and bowel loops again nonobstructed. Normal appendix. No free fluid/air. Stable fatty liver. Remaining liver, gallbladder, pancreas, spleen, adrenal glands, kidneys, ureters, bladder, uterus, and aorta appear unremarkable for noncontrast exam. Osseous structures intact. Stable small fatty umbilical hernia. Impression: 1. Stable fatty liver and fatty umbilical hernia. 2. Remaining CT abdomen/pelvis without contrast exam is again negative. Comment: Preliminary interpretation was made by [facility]. No discrepancy. CTDI 23.68
== END 2018-07-15 15:13 | disposition home or self-care (01) ==
LOC: ED 12:38
DX: N39.0 Urinary tract infection, site not specified (principal); E11.9 Type 2 diabetes mellitus without complications; Z79.4 Long term (current) use of insulin; E03.9 Hypothyroidism, unspecified; F41.8 Other specified anxiety disorders; I48.91 Unspecified atrial fibrillation; Z79.01 Long term (current) use of anticoagulants; Z79.899 Other long term (current) drug therapy
CPT/HCPCS: 36000; 36415; 74176; 80053; 81001; 82150; 83605; 83690; 84703; 85025; 87086; 96360; 96365; 96374; 96375; 99284; J0696; J1170; J2405

== ENCOUNTER 2018-09-04 18:50 | Emergency (ER) | payer OTHER ==
--- NOTE | 2018-09-04 18:58 | ERPHSYRPT ---
- History of Present Illness Time Seen by Provider: 09/04/18 18:56 Historian: patient, EMS Exam Limitations: no limitations Physician History: 38 y/o obese white female presents with recurrent substernal cp. pt cannot take asa due to allergy. EMS gave 2 ntg en route. pts cp is relieved on arrival.pt states her meal packer, dr. mccray, has run all tests except no cardiac cath. pt has a strong family h/o coronary artery dz. Timing/Duration: today Activities at Onset: none Quality: sharpness, stabbing Location: substernal Chest Pain Radiation: no radiation Severity of Pain-Max: moderate Severity of Pain-Current: mild Modifying Factors: Improves With: nitroglycerin Associated Symptoms: No nausea, No vomiting, No palpitations, No heartburn, No abdominal pain, No shortness of breath, No weakness, No syncope, No headache, No dizziness Prior Chest Pain/Cardiac Workup: echocardiography, stress test Nitro Today/Relief: provided by EMS Aspirin Treatment Today: no aspirin today Allergies/Adverse Reactions: Sulfa (Sulfonamide Antibiotics) [Sulfa(Sulfonamide Antibiotics)] Allergy ( Verified 09/04/18 19:09) Rash aspirin Adverse Reaction (Severe, Verified 09/04/18 19:09) advised not to take it d/t it will cause her to bleed Home Medications: Metformin HCl 500 mg [Glucophage 500 MG] 500 mg PO DAILY 07/14/14 [History ] Citalopram Hydrobromide 20 mg* [ceLEXa 20 MG] 20 mg PO DAILY 07/24/14 [ History] Lorazepam 0.5 mg [Ativan 0.5 MG] 0.5 mg PO TID 07/02/15 [History] Montelukast Sodium [Singulair] 10 mg PO DAILY 07/02/15 [History] Sitagliptin Phosphate [Januvia] 100 mg PO DAILY 07/08/15 [History] Famotidine 40 mg PO BID 03/09/16 [History] Metformin HCl 500 mg [Glucophage 500 MG] 250 mg PO HS 03/09/16 [History] Diphenhydramine HCl 25 mg [Benadryl 25 mg Capsule] 25 mg PO QHS 05/28/16 [ History] Folic Acid 0.8 mg PO DAILY 08/16/16 [History] Naproxen 375 mg [Naprosyn 375 mg] 375 mg PO BID 08/16/16 [History] Furosemide [Lasix] 20 mg PO DAILY 09/15/16 [History] SUMAtriptan succinate [Imitrex 50 mg] 50 mg PO DAILY PRN PRN 09/15/16 [History] Levothyroxine Sodium 75 Mcg [Synthroid 75 Mcg] 75 mcg DAILY 11/04/16 [ History] Gabapentin [Gralise] 300 mg PO BID 08/28/17 [History] Metoprolol Tartrate 25 mg [Lopressor 25MG Tab] 50 mg PO DAILY 08/28/17 [ History] Rivaroxaban 10 mg Tablet [Xarelto 10 mg Tablet] 20 mg PO DAILY 08/28/17 [ History] Topiramate 25 mg [Topamax 25 MG] 50 mg PO BID 10/14/17 [History] Hx Tetanus, Diphtheria Vaccination/Date Given: No Hx Influenza Vaccination/Date Given: Yes Hx Pneumococcal Vaccination/Date Given: Yes - Review of Systems Constitutional: No Symptoms Eyes: No Symptoms Ears, Nose, & Throat: No Symptoms Respiratory: No Symptoms Cardiac: Chest Pain, No Palpitations, No Syncope Abdominal/Gastrointestinal: No Symptoms, No Abdominal Pain, No Nausea, No Vomiting, No Diarrhea Genitourinary Symptoms: No Symptoms, No Dysuria, No Frequency, No Hematuria Musculoskeletal: No Symptoms Skin: No Symptoms Neurological: No Symptoms Psychological: No Symptoms Endocrine: No Symptoms Hematologic/Lymphatic: No Symptoms Immunological/Allergic: No Symptoms All Other Systems: Reviewed and Negative - Past Medical History Pertinent Past Medical History: Yes Neurological History: Migraines, Other ENT History: No Pertinent History Cardiac History: Arrhythmia, High Cholesterol, Hypertension, Other Respiratory History: Asthma, Bronchitis, COPD, Sleep Apnea Endocrine Medical History: Diabetes Type II, Hypothyroidism Musculoskeletal History: Other GI Medical History: No Pertinent History History: No Pertinent History Psycho-Social History: Anxiety, Depression Female Reproductive Disorders: Menstrual Problems, Other Other Medical History: ANEMIA,afib. ITP - Past Surgical History Past Surgical History: No Neuro Surgical History: No Pertinent History Cardiac: No Pertinent History Respiratory: No Pertinent History Gastrointestinal: No Pertinent History Genitourinary: No Pertinent History Musculoskeletal: No Pertinent History Female Surgical History: No Pertinent History - Social History Smoking Status: Never smoker Exposure to second hand smoke: Yes Alcohol Use: None Drug Use: none Patient Lives Alone: No Significant Family History: no pertinent family hx, heart disease, hypertension - Nursing Vital Signs Nursing Vital Signs: Initial Vital Signs Temperature 98.0 F 09/04/18 18:51 Pulse Rate 82 09/04/18 18:51 Respiratory Rate 24 09/04/18 18:51 Blood Pressure 132/66 09/04/18 18:51 O2 Sat by Pulse Oximetry 98 09/04/18 18:51 Pain Scale Pain Intensity 5 - Physical Exam General Appearance: mild distress, alert, anxiety Eye Exam: PERRL/EOMI Ears, Nose, Throat Exam: normal ENT inspection, moist mucous membranes Neck Exam: normal inspection, non-tender, supple, full range of motion Respiratory Exam: normal breath sounds, chest tenderness, lungs clear, airway intact, No respiratory distress, No accessory muscle use, No rhonchi, No wheezing, No stridor Cardiovascular Exam: regular rate/rhythm, normal heart sounds, normal peripheral pulses Gastrointestinal/Abdomen Exam: soft, normal bowel sounds, No tenderness, No guarding, No rebound Pelvic Exam: not done Rectal Exam: not done, No decreased tone Back Exam: normal inspection, normal range of motion, No vertebral tenderness Extremity Exam: normal inspection, normal range of motion, pelvis stable Neurologic Exam: alert, 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, cooperative, 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 Skin Exam: normal color, warm, dry Lymphatic Exam: No adenopathy SpO2 Interpretation: normal O2 Delivery: Room Air - Course Nursing assessment & vital signs reviewed: Yes EKG Interpreted by Me: RATE (75), Sinus Rhythm, Left [place] Deviation, Non- specific ST Changes, Other (new left axis deviation and 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) Ordered Tests: Active Orders 24 hr Category Date Time Status Fuel Pilot Engineer STAT Care 09/04/18 18:59 Active EKG-ER Only STAT Care 09/04/18 18:58 Active IV Insertion STAT Care 09/04/18 18:58 Active Pulse Oximetry (ED) STAT Care 09/04/18 18:58 Active CHEST 1 VIEW (PORTABLE) Stat Exams 09/04/18 19:18 Taken CBC W DIFF Stat Lab 09/04/18 19:25 Completed CMP Stat Lab 09/04/18 19:25 Completed D-DIMER QUANTITATION Stat Lab 09/04/18 19:25 Completed NT PRO BNP Stat Lab 09/04/18 19:25 Completed TROPONIN Q3H Lab 09/04/18 19:25 Completed TROPONIN Q3H Lab 09/04/18 22:00 Ordered TROPONIN Q3H Lab 09/05/18 01:00 Ordered TROPONIN Q3H Lab 09/05/18 04:00 Ordered TROPONIN Q3H Lab 09/05/18 07:00 Ordered Medication Summary Discontinued Medications Generic Name Dose Route Start Last Admin Trade Name Felicianoq PRN Reason Stop Dose Admin Morphine Sulfate 4 mg 09/04/18 20:02 09/04/18 20:18 Morphine Sulfate 4 Mg Inj IV 09/04/18 20:03 4 mg STAT ONE Administration Morphine Sulfate Confirm 09/04/18 20:18 Morphine Sulfate 4 Mg Inj Administered 09/04/18 20: Dose 4 mg .ROUTE .[place] [employer] ONE Lab/Rad Data: Laboratory Result Diagrams 09/04/18 19:25 09/04/18 19:25 Laboratory Results 09/04/18 09/04/18 09/04/18 Range/Units 19:25 19:25 19:25 WBC (4.0-10.5) K/mm3 RBC (4.1-5.4) M/mm3 Hgb (12.0-16.0) gm/dl Hct (35-47) % MCV (78-100) fl MCH (26-32) pg MCHC (32-36) g/dl RDW (11.5-14.0) % Plt Count (150-450) K/mm3 MPV (6-9.5) fl Gran % (36.0-66.0) % Eos # (Auto) (0-0.5) Absolute Lymphs (auto) (1.0-4.6) Absolute Monos (auto) (0.0-1.3) Lymphocytes % (24.0-44.0) % Monocytes % (0.0-12.0) % Eosinophils % (0.00-5.0) % Basophils % (0.0-0.4) % Absolute Granulocytes (1.4-6.9) Basophils # (0-0.4) D-Dimer < 215 L (215-500) ng/mL Sodium 140 (137-145) mmol/L Potassium 4.0 (3.5-5.1) mmol/L Chloride 110 H (98-107) mmol/L Carbon Dioxide 21 L (22-30) mmol/L Anion Gap 13.3 (5-15) MEQ/L BUN 23 H (7-17) mg/dL Creatinine 0.90 (0.52-1.04) mg/dL Estimated GFR > 60.0 ML/MIN Glucose 139 H (74-106) mg/dL Calcium 9.4 (8.4-10.2) mg/dL Total Bilirubin 0.30 (0.2-1.3) mg/dL AST 19 (14-36) U/L ALT 39 H (0-35) U/L Alkaline Phosphatase 110 (38-126) U/L Troponin I < 0.012 (0.000-0.034) ng/mL NT-Pro-B Natriuret Pep 242 (0-450) pg/mL Serum Total Protein 7.1 (6.3-8.2) g/dL Albumin 4.0 (3.5-5.0) g/dL 09/04/18 Range/Units 19:25 WBC 9.3 (4.0-10.5) K/mm3 RBC 3.81 L (4.1-5.4) M/mm3 Hgb 10.0 L (12.0-16.0) gm/dl Hct 32.1 L (35-47) % MCV 84.3 (78-100) fl MCH 26.2 (26-32) pg MCHC 31.2 L (32-36) g/dl RDW 15.9 H (11.5-14.0) % Plt Count 307 (150-450) K/mm3 MPV 9.0 (6-9.5) fl Gran % 77.8 H (36.0-66.0) % Eos # (Auto) 0.03 (0-0.5) Absolute Lymphs (auto) 1.53 (1.0-4.6) Absolute Monos (auto) 0.48 (0.0-1.3) Lymphocytes % 16.4 L (24.0-44.0) % Monocytes % 5.2 (0.0-12.0) % Eosinophils % 0.3 (0.00-5.0) % Basophils % 0.3 (0.0-0.4) % Absolute Granulocytes 7.24 H (1.4-6.9) Basophils # 0.03 (0-0.4) D-Dimer (215-500) ng/mL Sodium (137-145) mmol/L Potassium (3.5-5.1) mmol/L Chloride (98-107) mmol/L Carbon Dioxide (22-30) mmol/L Anion Gap (5-15) MEQ/L BUN (7-17) mg/dL Creatinine (0.52-1.04) mg/dL Estimated GFR ML/MIN Glucose (74-106) mg/dL Calcium (8.4-10.2) mg/dL Total Bilirubin (0.2-1.3) mg/dL AST (14-36) U/L ALT (0-35) U/L Alkaline Phosphatase (38-126) U/L Troponin I (0.000-0.034) ng/mL NT-Pro-B Natriuret Pep (0-450) pg/mL Serum Total Protein (6.3-8.2) g/dL Albumin (3.5-5.0) g/dL - Progress Progress: improved Air Movement: good Progress Note: 09/04/18 20:35 cxr-no acute process Counseled pt/family regarding: lab results, diagnosis, need for follow-up, rad results - Departure Time of Disposition: 20:35 Departure Disposition: Home Clinical Impression: Chest pain Condition: Stable Critical Care Time: No Referrals: TIM MAGUIRE MD [Primary Care Provider] - Additional Instructions: follow up with primary doctor for further management including evaluation of gallbladder and referral to a meal packer if indicated. avoid fatty, greasy, spicy foods. f
[2018-09-04 19:31] LABS: BASOPHIL % 0.3 % (0.0-0.4); Basophil (Absolute #) 0.03 (0-0.4); Eosinophil % 0.3 % (0.00-5.0); Eosinophil (Absolute #) 0.03 (0-0.5); Granulocyte Absolute (ANC) 7.24 (1.4-6.9); Granulocytes % 77.8 % (36.0-66.0); Hematocrit 32.1 % (35-47); Lymphocyte (Absolute #) 1.53 (1.0-4.6); Lymphocytes % 16.4 % (24.0-44.0); Mean Cell Volume 84.3 fl (78-100); Mean Corpuscular Hemoglobin 26.2 pg (26-32); Mean Corpuscular Hgb Concent. 31.2 g/dl (32-36); Monocyte (Absolute #) 0.48 (0.0-1.3); Monocytes % 5.2 % (0.0-12.0); Platelet Count 307 K/mm3 (150-450); Red Blood Count 3.81 M/mm3 (4.1-5.4); Red Cell Distribution Width 15.9 % (11.5-14.0); White Blood Count 9.3 K/mm3 (4.0-10.5)
[2018-09-04 19:52] LABS: ALKALINE PHOSPHATASE 110 U/L (38-126); ANION GAP 13.3 MEQ/L (5-15); BLOOD UREA NITROGEN 23 mg/dL (7-17); CHLORIDE 110 mmol/L (98-107); Calcium 9.4 mg/dL (8.4-10.2); Carbon Dioxide 21 mmol/L (22-30); Glucose 139 mg/dL (74-106); NT PRO BNP 242 pg/mL (0-450); SGOT/AST 19 U/L (14-36); SGPT/ALT 39 U/L (0-35); SODIUM 140 mmol/L (137-145); Total Protein 7.1 g/dL (6.3-8.2)
[2018-09-04] MEDS ORDERED: MORPHINE SULFATE 4 MG INJ IV ONE (20:02)
[2018-09-04] MEDS ORDERED: MORPHINE SULFATE 4 MG INJ ONE (20:18)
[2018-09-04 20:59] VITALS: O2SAT 97
[2018-09-04 21:00] VITALS: BP 113/63; PULSE 73
--- NOTE | 2018-09-05 08:40 | XRAY ---
Indication: Chest pain. Comparison: February 16, 2018. Portable apical lordotic chest again demonstrates normal heart, lungs, and bony thorax.
== END 2018-09-04 21:02 | disposition home or self-care (01) ==
LOC: ED 18:50
DX: R07.9 Chest pain, unspecified (principal); I10 Essential (primary) hypertension; E78.00 Pure hypercholesterolemia, unspecified; J45.909 Unspecified asthma, uncomplicated; J44.9 Chronic obstructive pulmonary disease, unspecified; P28.3 Primary sleep apnea of newborn; E11.9 Type 2 diabetes mellitus without complications; Z79.4 Long term (current) use of insulin; E03.9 Hypothyroidism, unspecified; F41.8 Other specified anxiety disorders; I48.91 Unspecified atrial fibrillation; Z79.01 Long term (current) use of anticoagulants; Z79.899 Other long term (current) drug therapy
CPT/HCPCS: 36415; 71045; 80053; 83880; 84484; 85025; 85379; 93005; 93041; 96374; 99284; J2270

== ENCOUNTER 2018-09-26 11:49 | Observation (INO) | payer OTHER ==
--- NOTE | 2018-09-26 12:55 | PCM.HP.ADD ---
Addendum to History & Physical - History & Physical Addendum Addendum to History & Physical: This certifies that the History & Physical in the electronic chart reflects the current health status of the patient. If there are changes in the H&P these changes/exceptions are listed as follows.
[2018-09-26] MEDS ORDERED: DUONEB 0.5-3 MG/3 ml Neb IH ONE (13:28)
--- NOTE | 2018-09-26 13:30 | XRAY ---
Indication: Short of breath. Comparison: September 04, 2018. PA/lateral chest again demonstrates normal heart, lungs, and bony thorax.
[2018-09-26] MEDS: Sodium Chloride 0.9% 1000 ML 1,000 ML IV SCH ×2 (13:34→23:59)
[2018-09-26 13:38] LABS: Hematocrit 29.6 % (35-47); Hemoglobin 9.3 gm/dl (12.0-16.0); Mean Cell Volume 82.9 fl (78-100); Mean Corpuscular Hgb Concent. 31.4 g/dl (32-36); Mean Platelet Volume 9.4 fl (6-9.5); Platelet Count 268 K/mm3 (150-450); Red Blood Count 3.57 M/mm3 (4.1-5.4); Red Cell Distribution Width 15.9 % (11.5-14.0); White Blood Count 3.8 K/mm3 (4.0-10.5)
[2018-09-26] MEDS: solu-MEDROL 125 MG IV SCH ×2 (13:52→21:51)
[2018-09-26] MEDS: DUONEB 0.5-3 MG/3 ml Neb IH SCH ×2 (13:57→19:35)
[2018-09-26 14:00] LABS: ALBUMIN 3.5 g/dL (3.5-5.0); ALKALINE PHOSPHATASE 115 U/L (38-126); ANION GAP 13.6 MEQ/L (5-15); BLOOD UREA NITROGEN 21 mg/dL (7-17); CHLORIDE 112 mmol/L (98-107); Calcium 8.9 mg/dL (8.4-10.2); Carbon Dioxide 21 mmol/L (22-30); Glucose 142 mg/dL (74-106); MAGNESIUM 1.6 mg/dL (1.6-2.3); NT PRO BNP 213 pg/mL (0-450); Potassium 3.3 mmol/L (3.5-5.1); SGOT/AST 22 U/L (14-36); SGPT/ALT 38 U/L (0-35); SODIUM 143 mmol/L (137-145); Total Protein 6.6 g/dL (6.3-8.2)
[2018-09-26 14:12] LABS: INFLUENZA A POSITIVE (NEGATIVE); INFLUENZA B NEGATIVE (NEGATIVE); RESPIRATORY SYNCTIAL VIRUS NEGATIVE (Negative)
[2018-09-26 14:14] LABS: A-aADO2 45; ABG HEMOGLOBIN 9.6; ARTERIAL BLD GAS O2 SATURATION 98.7 % (95-100); ARTERIAL BLOOD GAS FIO2 28 %; ARTERIAL BLOOD GAS PCO2 33 mmHg (35-45); ARTERIAL BLOOD GAS PO2 113 mmHg (75-100); ARTERIAL BLOOD GAS pH 7.43 (7.35-7.45); HCO3- 21.9 (22-28); HGB O2 SAT 96.8 g/dF (94-100); paO2 pAO1 0.72
[2018-09-26 14:17] LABS: ABG SITE LEFT RADIAL
[2018-09-26 14:18] LABS: ALLEN TEST OK? YES
[2018-09-26] MEDS ORDERED: POTASSIUM CHLORIDE 20 mEq IN WATER 100ML 20 MEQ/100 ML BAG IV ONE (15:09)
[2018-09-26] MEDS ORDERED: NON-FORMULARY ITEM (Sumatriptan Succinate [Imitrex 50 Mg] 50 MG) PO PRN (16:33)
[2018-09-26] MEDS: Tamiflu 75MG Capsule PO SCH ×2 (16:52→21:52)
[2018-09-26] MEDS: Januvia 50 MG PO SCH (17:00)
[2018-09-26] MEDS ORDERED: MEDICATION INTERVENTION MC SCH (17:00)
[2018-09-26] MEDS: XARELTO 10 MG TABLET PO SCH (17:00)
[2018-09-26] MEDS: TYLENOL 325 MG PO PRN ×2 (17:00→21:53)
[2018-09-26] MEDS: NAPROSYN 375 MG PO SCH (18:09)
[2018-09-26 19:36] LABS: Granulocyte Absolute (ANC) 2.78 (1.4-6.9)
[2018-09-26 19:37] LABS: Eosinophil 2 % (0.00-3.0); Lymphocytes 24 % (24-44); Monocyte 1 % (0.0-12.0); Neutrophils 73 % (36.0-66.0); Platelet Estimate NORMAL (NORMAL); Total Cells Counted 100
[2018-09-26] MEDS: Glucophage 500 MG PO SCH (21:52)
[2018-09-26] MEDS: NEURONTIN 300 MG PO SCH (21:52)
[2018-09-26] MEDS: Pepcid 20 MG PO SCH (21:52)
[2018-09-26] MEDS: BENADRYL 25 MG CAPSULE PO SCH (21:52)
[2018-09-26] MEDS: Topamax 100 MG PO SCH (21:52)
[2018-09-26] MEDS: Ativan 0.5 MG PO SCH (21:53)
[2018-09-26] MEDS: NovoLOG Insulin SQ PRN (21:53)
[2018-09-26] MEDS ORDERED: GABAPENTIN 300 MG PO SCH (22:00)
[2018-09-26] MEDS ORDERED: Topamax 25 MG PO SCH (22:00)
[2018-09-26] MEDS ORDERED: NON-FORMULARY ITEM (Famotidine [Famotidine] 40 MG) PO SCH (22:00)
[2018-09-26] MEDS: Robitussin AC Syrup Unit Dose Cup PO PRN (22:09)
[2018-09-27] MEDS: DUONEB 0.5-3 MG/3 ml Neb IH SCH ×8 (00:02→23:02)
[2018-09-27] MEDS: TYLENOL 325 MG PO PRN ×3 (04:44→22:39)
[2018-09-27] MEDS: Robitussin AC Syrup Unit Dose Cup PO PRN ×3 (04:44→22:36)
[2018-09-27] MEDS: solu-MEDROL 125 MG IV SCH ×3 (05:07→22:23)
[2018-09-27] MEDS ORDERED: Advair Hfa 115/21 Common canister IH SCH (07:00)
[2018-09-27] MEDS: Januvia 50 MG PO SCH (08:55)
[2018-09-27] MEDS: Topamax 100 MG PO SCH ×2 (08:56→22:24)
[2018-09-27] MEDS: Tamiflu 75MG Capsule PO SCH ×2 (08:56→22:24)
[2018-09-27] MEDS: Pepcid 20 MG PO SCH ×2 (08:57→22:23)
[2018-09-27] MEDS: NEURONTIN 300 MG PO SCH ×2 (08:58→22:22)
[2018-09-27] MEDS: Ativan 0.5 MG PO SCH ×3 (08:58→22:22)
[2018-09-27] MEDS: NAPROSYN 375 MG PO SCH ×2 (08:58→17:40)
[2018-09-27] MEDS: NovoLOG Insulin SQ PRN ×3 (08:58→22:27)
[2018-09-27] MEDS: XARELTO 10 MG TABLET PO SCH (09:01)
[2018-09-27] MEDS ORDERED: ceLEXa 20 MG PO SCH (10:00)
[2018-09-27] MEDS ORDERED: SYNTHROID 75 MCG PO SCH (10:00)
[2018-09-27] MEDS ORDERED: Glucophage 500 MG PO SCH (10:00)
[2018-09-27] MEDS ORDERED: Singulair 10 MG PO SCH (10:00)
[2018-09-27] MEDS ORDERED: Lopressor 25MG Tab PO SCH (10:00)
[2018-09-27] MEDS ORDERED: LASIX 20 MG PO SCH (10:00)
[2018-09-27] MEDS ORDERED: FOLATE 1 MG PO SCH (10:00)
[2018-09-27] MEDS ORDERED: Lopressor 50 MG PO SCH (10:00)
[2018-09-27] MEDS ORDERED: NON-FORMULARY ITEM (Folic Acid [Folic Acid] 0.8 MG) PO SCH (10:00)
--- NOTE | 2018-09-27 13:01 | PCM.NOTE ---
Date and Time: 09/27/18 1259 Subjective Assessment: doing ok - Review of Systems Constitutional: No Fever, No Chills Eyes: No Symptoms Ears, Nose, & Throat: No Symptoms Respiratory: Cough, Orthopnea, Short Of Breath, Wheezing Cardiac: No Chest Pain, No Edema, No Syncope Abdominal/Gastrointestinal: No Abdominal Pain, No Nausea, No Vomiting, No Diarrhea Genitourinary Symptoms: No Dysuria Musculoskeletal: No Back Pain, No Neck Pain Skin: No Rash Neurological: No Dizziness, No Focal Weakness, No Sensory Changes Psychological: No Symptoms Endocrine: No Symptoms Hematologic/Lymphatic: No Symptoms Immunological/Allergic: No Symptoms Objective Exam General Appearance: no apparent distress, alert Neurologic Exam: alert, 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, cooperative, normal mood/affect, nml cerebellar function, sensation nml, No motor deficits Skin Exam: normal color, warm, dry Eye Exam: PERRL, EOMI, eyes nml inspection Ears, Nose, Throat Exam: normal ENT inspection, pharynx normal, moist mucous membranes Neck Exam: normal inspection, non-tender, supple, full range of motion Respiratory Exam: diminished breath sounds, crackles/rales, wheezing, No respiratory distress Cardiovascular Exam: regular rate/rhythm, normal heart sounds Gastrointestinal/Abdomen Exam: soft, No tenderness, No mass Extremity Exam: normal inspection, normal range of motion Back Exam: normal inspection, normal range of motion, No CVA tenderness, No vertebral tenderness Pelvic Exam: deferred Rectal Exam: deferred OBJECTIVE DATA Vital Signs: Vital Signs - 24 hr Temp Pulse Resp BP Pulse Ox 09/27/18 10:24 86 18 96 09/27/18 07:51 97.8 F 65 18 145/72 97 09/27/18 06:45 65 18 97 09/27/18 04:12 64 18 98 09/27/18 03:55 97.7 F 64 18 132/67 98 09/27/18 00:06 80 20 98 09/26/18 23:55 97.9 F 69 17 141/79 96 09/26/18 21:01 83 20 98 09/26/18 19:58 96.4 F 76 18 131/78 98 09/26/18 16:00 98.5 F 78 18 141/67 98 09/26/18 14:02 78 18 98 09/26/18 13:59 98 Oxygen-Last 24 hours O2 Percentage 2 Liters = 28% O2 Percentage 2 Liters = 28% Pain Assessment - Last Documented Pain Intensity 5 Pain Scale Used 0-10 Pain Scale Intake and Output: Intake & Output 09/25/18 09/26/18 09/27/18 09/28/18 11:59 11:59 11:59 11:59 Intake Total 2924 Output Total 900 Balance 2023 Weight 153 kg Lab Results: Accuchecks Date 09/27/18 Date 09/26/18 Date 09/26/18 Time 07:30 Time 22:00 Time 16:30 Accucheck Value: 287 Accucheck Value: 277 Accucheck Value: 143 Lab Results-Last 24 Hours 09/26/18 09/26/18 09/26/18 Range/Units 13:30 13:30 13:30 WBC 3.8 L (4.0-10.5) K/mm3 RBC 3.57 L (4.1-5.4) M/mm3 Hgb 9.3 L (12.0-16.0) gm/dl Hct 29.6 L (35-47) % MCV 82.9 (78-100) fl MCH 26.0 (26-32) pg MCHC 31.4 L (32-36) g/dl RDW 15.9 H (11.5-14.0) % Plt Count 268 (150-450) K/mm3 MPV 9.4 (6-9.5) fl Absolute Granulocytes 2.78 (1.4-6.9) Segmented Neutrophils 73 H (36.0-66.0) % Lymphocytes (Manual) 24 (24-44) % Monocytes (Manual) 1 (0.0-12.0) % Eosinophils (Manual) 2 (0.00-3.0) % Platelet Estimate NORMAL (NORMAL) RBC Morphology NORMAL D-Dimer 244 (215-500) ng/mL Puncture Site pCO2 (35-45) mmHg pO2 (75-100) mmHg Base Excess (-2.0-2.0) O2 Saturation (94-100) g/dF ABG pH (7.35-7.45) ABG HCO3 (22-28) ABG O2 Sat (Measured) (95-100) % Adam Test A-a Gradient a/A Ratio Hemoglobin Carboxyhemoglobin (0.0-6.9) % THgb Methemoglobin (1.4-1.5) % Temperature C POC O2 Flow Rate % Sodium 143 (137-145) mmol/L Potassium 3.3 L (3.5-5.1) mmol/L Chloride 112 H (98-107) mmol/L Carbon Dioxide 21 L (22-30) mmol/L Anion Gap 13.6 (5-15) MEQ/L BUN 21 H (7-17) mg/dL Creatinine 0.80 (0.52-1.04) mg/dL Estimated GFR > 60.0 ML/MIN Glucose 142 H (74-106) mg/dL Hemoglobin A1c (4.5-6.0) % Lactic Acid (0.4-2.0) Calcium 8.9 (8.4-10.2) mg/dL Magnesium 1.6 (1.6-2.3) mg/dL Total Bilirubin 0.10 L (0.2-1.3) mg/dL AST 22 (14-36) U/L ALT 38 H (0-35) U/L Alkaline Phosphatase 115 (38-126) U/L Troponin I (0.000-0.034) ng/mL NT-Pro-B Natriuret Pep 213 (0-450) pg/mL Serum Total Protein 6.6 (6.3-8.2) g/dL Albumin 3.5 (3.5-5.0) g/dL Influenza Type A Ag (NEGATIVE) Influenza Type B Ag (NEGATIVE) RSV (PCR) (Negative) 09/26/18 09/26/18 09/26/18 Range/Units 13:30 13:30 13:45 WBC (4.0-10.5) K/mm3 RBC (4.1-5.4) M/mm3 Hgb (12.0-16.0) gm/dl Hct (35-47) % MCV (78-100) fl MCH (26-32) pg MCHC (32-36) g/dl RDW (11.5-14.0) % Plt Count (150-450) K/mm3 MPV (6-9.5) fl Absolute Granulocytes (1.4-6.9) Segmented Neutrophils (36.0-66.0) % Lymphocytes (Manual) (24-44) % Monocytes (Manual) (0.0-12.0) % Eosinophils (Manual) (0.00-3.0) % Platelet Estimate (NORMAL) RBC Morphology D-Dimer (215-500) ng/mL Puncture Site pCO2 (35-45) mmHg pO2 (75-100) mmHg Base Excess (-2.0-2.0) O2 Saturation (94-100) g/dF ABG pH (7.35-7.45) ABG HCO3 (22-28) ABG O2 Sat (Measured) (95-100) % Adam Test A-a Gradient a/A Ratio Hemoglobin Carboxyhemoglobin (0.0-6.9) % THgb Methemoglobin (1.4-1.5) % Temperature C POC O2 Flow Rate % Sodium (137-145) mmol/L Potassium (3.5-5.1) mmol/L Chloride (98-107) mmol/L Carbon Dioxide (22-30) mmol/L Anion Gap (5-15) MEQ/L BUN (7-17) mg/dL Creatinine (0.52-1.04) mg/dL Estimated GFR ML/MIN Glucose (74-106) mg/dL Hemoglobin A1c (4.5-6.0) % Lactic Acid 0.9 (0.4-2.0) Calcium (8.4-10.2) mg/dL Magnesium (1.6-2.3) mg/dL Total Bilirubin (0.2-1.3) mg/dL AST (14-36) U/L ALT (0-35) U/L Alkaline Phosphatase (38-126) U/L Troponin I < 0.012 (0.000-0.034) ng/mL NT-Pro-B Natriuret Pep (0-450) pg/mL Serum Total Protein (6.3-8.2) g/dL Albumin (3.5-5.0) g/dL Influenza Type A Ag POSITIVE (NEGATIVE) Influenza Type B Ag NEGATIVE (NEGATIVE) RSV (PCR) NEGATIVE (Negative) 09/26/18 09/26/18 09/26/18 Range/Units 13:45 20:55 Unknown WBC (4.0-10.5) K/mm3 RBC (4.1-5.4) M/mm3 Hgb (12.0-16.0) gm/dl Hct (35-47) % MCV (78-100) fl MCH (26-32) pg MCHC (32-36) g/dl RDW (11.5-14.0) % Plt Count (150-450) K/mm3 MPV (6-9.5) fl Absolute Granulocytes (1.4-6.9) Segmented Neutrophils (36.0-66.0) % Lymphocytes (Manual) (24-44) % Monocytes (Manual) (0.0-12.0) % Eosinophils (Manual) (0.00-3.0) % Platelet Estimate (NORMAL) RBC Morphology D-Dimer (215-500) ng/mL Puncture Site LEFT RADIAL pCO2 33 L (35-45) mmHg pO2 113 H (75-100) mmHg Base Excess -2.0 (-2.0-2.0) O2 Saturation 96.8 (94-100) g/dF ABG pH 7.43 (7.35-7.45) ABG HCO3 21.9 L (22-28) ABG O2 Sat (Measured) 98.7 (95-100) % Adam Test YES A-a Gradient 45 a/A Ratio 0.72 Hemoglobin 9.6 Carboxyhemoglobin 1.0 (0.0-6.9) % THgb Methemoglobin 1.0 L (1.4-1.5) % Temperature 37.0 C POC O2 Flow Rate 28 % Sodium (137-145) mmol/L Potassium 3.0 L 3.4 L (3.5-5.1) mmol/L Chloride (98-107) mmol/L Carbon Dioxide (22-30) mmol/L Anion Gap (5-15) MEQ/L BUN (7-17) mg/dL Creatinine (0.52-1.04) mg/dL Estimated GFR ML/MIN Glucose (74-106) mg/dL Hemoglobin A1c 5.87 (4.5-6.0) % Lactic Acid (0.4-2.0) Calcium (8.4-10.2) mg/dL Magnesium (1.6-2.3) mg/dL Total Bilirubin (0.2-1.3) mg/dL AST (14-36) U/L ALT (0-35) U/L Alkaline Phosphatase (38-126) U/L Troponin I (0.000-0.034) ng/mL NT-Pro-B Natriuret Pep (0-450) pg/mL Serum Total Protein (6.3-8.2) g/dL Albumin (3.5-5.0) g/dL Influenza Type A Ag (NEGATIVE) Influenza Type B Ag (NEGATIVE) RSV (PCR) (Negative) Radiology Exams: Radiology Procedures Category Date Time Status CHEST 2 VIEWS (PA AND LAT) Stat Exams 09/26/18 13:10 Completed Assessment/Plan (1) Influenza A Current Visit: Yes Status: Acute Code(s): J10.1 - FLU DUE TO OTH IDENT INFLUENZA VIRUS W OTH RESP MANIFEST (2) COPD (chronic obstructive pulmonary disease) Current Visit: Yes Status: Acute Qualifiers: COPD type: COPD with acute lower respiratory infection Qualified Code(s): J44.0 - Chronic obstructive pulmonary disease with acute lower respiratory infection (3) COPD with exacerbation Current Visit: Yes Status: Acute Code(s): J44.1 - CHRONIC OBSTRUCTIVE PULMONARY DISEASE W (ACUTE) EXACERBATION
[2018-09-27] MEDS: Glucophage 500 MG PO SCH (22:22)
[2018-09-27] MEDS: BENADRYL 25 MG CAPSULE PO SCH (22:22)
[2018-09-28] MEDS: DUONEB 0.5-3 MG/3 ml Neb IH SCH ×2 (03:20→06:58)
[2018-09-28] MEDS: TYLENOL 325 MG PO PRN ×2 (03:28→07:36)
[2018-09-28] MEDS: Robitussin AC Syrup Unit Dose Cup PO PRN ×2 (03:28→07:36)
[2018-09-28] MEDS: solu-MEDROL 125 MG IV SCH (06:40)
[2018-09-28 07:13] VITALS: BP 146/81
[2018-09-28 07:29] VITALS: PULSE 78; O2SAT 94
[2018-09-28] MEDS: NAPROSYN 375 MG PO SCH (07:36)
[2018-09-28] MEDS: NovoLOG Insulin SQ PRN (07:37)
--- NOTE | 2018-09-28 09:09 | PCM.DS ---
Discharge Summary Date of Admission: 09/26/18 11:59 Admitting Physician: TIM MAGUIRE Primary Care Provider: TIM MAGUIRE Allergies Allergies Sulfa (Sulfonamide Antibiotics) [Sulfa(Sulfonamide Antibiotics)] Allergy ( Verified 09/04/18 19:09) Rash aspirin Adverse Reaction (Severe, Verified 09/04/18 19:09) advised not to take it d/t it will cause her to bleed Hospital Summary - Hospital Course Hospital Course: Last Vital Signs Temp 97.7 F 09/28/18 07:11 Pulse 78 09/28/18 07:28 Resp 16 09/28/18 07:28 BP 146/81 09/28/18 07:11 Pulse Ox 94 L 09/28/18 07:28 Allergies Sulfa (Sulfonamide Antibiotics) [Sulfa(Sulfonamide Antibiotics)] Allergy ( Verified 09/04/18 19:09) Rash aspirin Adverse Reaction (Severe, Verified 09/04/18 19:09) advised not to take it d/t it will cause her to bleed Active Medications Acetaminophen (Tylenol 325 Mg) 650 mg PO Q4H PRN PRN PRN Reason: PAIN Stop: 10/26/18 16:32 Last Admin: 09/28/18 07:36 Dose: 650 mg Albuterol/Ipratropium (Duoneb 0.5-3 Mg/3 Ml Neb) 3 ml IH Q4HRT [facility] Stop: 10/26/18 14:59 Last Admin: 09/28/18 06:58 Dose: 3 ml Citalopram Hydrobromide (Celexa 20 Mg) 20 mg PO DAILY [facility] Stop: 10/27/18 09:59 Last Admin: 09/27/18 08:56 Dose: 20 mg Diphenhydramine HCl (Benadryl 25 Mg Capsule) 25 mg PO QHS [facility] Stop: 10/26/18 21:59 Last Admin: 09/27/18 22:22 Dose: 25 mg Famotidine (Pepcid 20 Mg) 40 mg PO BID [facility] Stop: 10/26/18 21:59 Last Admin: 09/27/18 22:23 Dose: 40 mg Folic Acid (Folate 1 Mg) 1 mg PO DAILY [facility] Stop: 10/27/18 09:59 Last Admin: 09/27/18 08:58 Dose: 1 mg Furosemide (Lasix 20 Mg) 20 mg PO DAILY [facility] Stop: 10/27/18 09:59 Last Admin: 09/27/18 08:55 Dose: 20 mg Gabapentin (Neurontin 300 Mg) 300 mg PO BID [facility] Stop: 10/26/18 21:59 Last Admin: 09/27/18 22:22 Dose: 300 mg Guaifenesin/Codeine Phosphate (Robitussin Ac Syrup Unit Dose Cup) 5 ml PO Q4H PRN PRN PRN Reason: COUGH Stop: 10/26/18 22:04 Last Admin: 09/28/18 07:36 Dose: 5 ml Sodium Chloride (Sodium Chloride 0.9% 1000 Ml) 1,000 mls @ 50 mls/hr IV .Q20H [facility] Stop: 10/26/18 12:59 Last Admin: 09/26/18 23:59 Dose: 50 mls/hr Insulin Aspart (Novolog Insulin) 0 unit SQ UD PRN PRN Reason: HYPERGLYCEMIA Stop: 10/26/18 17:24 Last Admin: 09/28/18 07:37 Dose: 2 unit Levothyroxine Sodium (Synthroid 75 Mcg) 75 mcg PO DAILY [facility] Stop: 10/27/18 09:59 Last Admin: 09/27/18 08:56 Dose: 75 mcg Lorazepam (Ativan 0.5 Mg) 0.5 mg PO TID [facility] Stop: 10/26/18 21:59 Last Admin: 09/27/18 22:22 Dose: 0.5 mg Metformin HCl (Glucophage 500 Mg) 250 mg PO HS [facility] Stop: 10/26/18 21:59 Last Admin: 09/27/18 22:22 Dose: 250 mg Metformin HCl (Glucophage 500 Mg) 500 mg PO DAILY [facility] Stop: 10/27/18 09:59 Last Admin: 09/27/18 08:56 Dose: 500 mg Methylprednisolone Sodium Succinate (Solu-Medrol 125 Mg) 60 mg IV Q8HT [facility] Stop: 10/26/18 12:59 Last Admin: 09/28/18 06:40 Dose: 60 mg Metoprolol Tartrate (Lopressor 50 Mg) 50 mg PO DAILY [facility] Stop: 10/27/18 09:59 Last Admin: 09/27/18 08:56 Dose: 50 mg Miscellaneous Information (Medication Intervention) 0 each MC .RN TO [facility] WITH PT [facility] Stop: 10/26/18 16:59 Montelukast Sodium (Singulair 10 Mg) 10 mg PO DAILY [facility] Stop: 10/27/18 09:59 Last Admin: 09/27/18 08:58 Dose: 10 mg Naproxen (Naprosyn 375 Mg) 375 mg PO BIDPC [facility] Stop: 10/26/18 18:29 Last Admin: 09/28/18 07:36 Dose: 375 mg Oseltamivir Phosphate (Tamiflu 75mg Capsule) 75 mg PO BID [facility] Stop: 10/01/18 15:29 Last Admin: 09/27/18 22:24 Dose: 75 mg Rivaroxaban (Xarelto 10 Mg Tablet) 20 mg PO DAILY [facility] Stop: 10/26/18 16:59 Last Admin: 09/27/18 09:01 Dose: 20 mg Sitagliptin Phosphate (Januvia 50 Mg) 100 mg PO DAILY [facility] Stop: 10/26/18 16:59 Last Admin: 09/27/18 08:55 Dose: 100 mg Topiramate (Topamax 100 Mg) 50 mg PO BID [facility] Stop: 10/26/18 21:59 Last Admin: 09/27/18 22:24 Dose: 50 mg Intake & Output 09/27/18 09/28/18 11:59 11:59 Intake Total 2924 3140 Output Total 900 1000 Balance 2023 2139 Weight 153 kg Orders 09/27/18 10:00 Citalopram Hydrobromide 20 mg* [ceLEXa 20 MG] 20 mg PO DAILY Folic Acid 1 mg [Folate 1 mg] 1 mg PO DAILY Furosemide 20 mg [Lasix 20 mg] 20 mg PO DAILY Levothyroxine Sodium 75 Mcg [Synthroid 75 Mcg] 75 mcg PO DAILY Metformin HCl 500 mg [Glucophage 500 MG] 500 mg PO DAILY Metoprolol Tartrate 50 mg [Lopressor 50 MG] 50 mg PO DAILY Montelukast Sodium 10 mg [Singulair 10 MG] 10 mg PO DAILY - Vitals & Intake/Output Vital Signs: Vital Signs Temperature 97.7 F 09/28/18 07:11 Pulse Rate 78 09/28/18 07:28 Respiratory Rate 16 09/28/18 07:28 Blood Pressure 146/81 09/28/18 07:11 O2 Sat by Pulse Oximetry 94 L 09/28/18 07:28 Oxygen-Last Documented O2 Percentage 2 Liters = 28% Intake & Output: Intake & Output 09/25/18 09/26/18 09/27/18 09/28/18 11:59 11:59 11:59 11:59 Intake Total 2924 3140 Output Total 900 1000 Balance 2023 2139 Weight 153 kg - Lab Result Diagrams: 09/26/18 13:30 09/26/18 20:55 Lab Results-Last 24 Hrs: Accuchecks Date 09/28/18 Date 09/27/18 Date 09/27/18 Time 07:30 Time 16:30 Time 12:00 Accucheck Value: 218 Accucheck Value: 271 Accucheck Value: 131 Accucheck Value: 308 Micro Results-Entire Visit: Accuchecks Date 09/28/18 Date 09/27/18 Date 09/27/18 Time 07:30 Time 16:30 Time 12:00 Accucheck Value: 218 Accucheck Value: 271 Accucheck Value: 131 Accucheck Value: 308 - Radiology Exams Ordered Rad Exams-Entire Visit: Radiology Procedures Category Date Time Status CHEST 2 VIEWS (PA AND LAT) Stat Exams 09/26/18 13:10 Completed - Procedures and Test Procedures and Tests throughout Hospitalization: Therapy Orders & Screens 09/26/18 07:00 Peak Expiratory Flow Rate DAILY Comment: Reason For Exam: Diagnosis: exacerbation asthma 09/26/18 12:51 Oxygen Nasal Cannula 2 lpm Comment: Diagnosis: exacerbation asthma Respiratory Nebulizer Q4H Comment: Diagnosis: exacerbation asthma 09/27/18 07:00 Respiratory Therapy Assessment DAILY Comment: Diagnosis: exacerbation asthma Discharge Exam General Appearance: no apparent distress, alert Neurologic Exam: alert, 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, cooperative, normal mood/affect, nml cerebellar function, sensation nml, No motor deficits Skin Exam: normal color, warm, dry Eye Exam: PERRL, EOMI, eyes nml inspection Ears, Nose, Throat Exam: normal ENT inspection, pharynx normal, moist mucous membranes Neck Exam: normal inspection, non-tender, supple, full range of motion Respiratory Exam: normal breath sounds, lungs clear, No respiratory distress Cardiovascular Exam: regular rate/rhythm, normal heart sounds Gastrointestinal/Abdomen Exam: soft, No tenderness, No mass Extremity Exam: normal inspection, normal range of motion Back Exam: normal inspection, normal range of motion, No CVA tenderness, No vertebral tenderness Pelvic Exam: deferred Rectal Exam: deferred Final Diagnosis/Problem List - Final Discharge Diagnosis/Problem (1) Influenza A Current Visit: Yes Status: Acute Assessment & Plan: resolved Code(s): J10.1 - FLU DUE TO OTH IDENT INFLUENZA VIRUS W OTH RESP MANIFEST (2) COPD (chronic obstructive pulmonary disease) Current Visit: Yes Status: Acute (3) COPD with exacerbation Current Visit: Yes Status: Acute Code(s): J44.1 - CHRONIC OBSTRUCTIVE PULMONARY DISEASE W (ACUTE) EXACERBATION - Discharge Discharge Date: 09/28/18 Disposition: Home, Self-Care Condition: Stable Prescriptions: New Methylprednisolone Packet [Medrol Dosepack] 4 mg PO UD #30 packet Hydrocodone/APAP 5-325 Tab^^^ [[place] 5-325 Tablet^^^] 1 tab PO Q6HPRN PRN # 20 tablet MDD 6 PRN Reason: Pain Oseltamivir 75 mg [Tamiflu 75MG Capsule] 75 mg PO BID #6 cap Continue Metformin HCl 500 mg [Glucophage 500 MG] 500 mg PO DAILY Citalopram Hydrobromide 20 mg* [ceLEXa 20 MG] 20 mg PO DAILY Montelukast Sodium [Singulair] 10 mg PO DAILY Lorazepam 0.5 mg [Ativan 0.5 MG] 0.5 mg PO TID Sitagliptin Phosphate [Januvia] 100 mg PO DAILY Metformin HCl 500 mg [Glucophage 500 MG] 250 mg PO HS Famotidine 40 mg PO BID Diphenhydramine HCl 25 mg [Benadryl 25 mg Capsule] 25 mg PO QHS Naproxen 375 mg [Naprosyn 375 mg] 375 mg PO BID Folic Acid 0.8 mg PO DAILY Furosemide [Lasix] 20 mg PO DAILY SUMAtriptan succinate [Imitrex 50 mg] 50 mg PO DAILY PRN PRN PRN Reason: Headache Levothyroxine Sodium 75 Mcg [Synthroid 75 Mcg] 75 mcg PO DAILY Acetaminophen 650 mg PO Q4H PRN PRN #30 tablet PRN Reason: Pain Rivaroxaban 10 mg Tablet [Xarelto 10 mg Tablet] 20 mg PO DAILY Gabapentin [Gralise] 300 mg PO BID Metoprolol Tartrate 25 mg [Lopressor 25MG Tab] 50 mg PO DAILY Topiramate 25 mg [Topamax 25 MG] 50 mg PO BID Follow up with: TIM MAGUIRE MD [Primary Care Provider] - 1 Week
== END 2018-09-28 10:40 | disposition home or self-care (01) ==
LOC: MED SURG 11:59
PROVIDERS: ADMIT General Practice; ATTEND General Practice
DX: J09.X2 Influenza due to identified novel influenza A virus with other respiratory manifestations (principal); J44.1 Chronic obstructive pulmonary disease with (acute) exacerbation; E11.9 Type 2 diabetes mellitus without complications; G47.33 Obstructive sleep apnea (adult) (pediatric); Z79.899 Other long term (current) drug therapy
CPT/HCPCS: 36415; 36600; 71046; 80053; 82375; 82803; 82962; 83036; 83605; 83735; 83880; 84132; 84484; 85025; 85379; 87631; 93268; 94150; 94640; 94760; J2930; J3480; A9270-GY; G0378

== ENCOUNTER 2018-11-27 13:30 | Emergency (ER) | payer OTHER ==
[2018-11-27] MEDS ORDERED: DELTASONE 20 MG PO ONE (14:08)
--- NOTE | 2018-11-27 14:08 | ERPHSYRPT ---
- History of Present Illness Time Seen by Provider: 11/27/18 13:36 Source: patient Exam Limitations: clinical condition Patient Subjective Stated Complaint: Natasha states she has been SOB since noon today, Natasha states she got choaked at lunch and has been SOB since Triage Nursing Assessment: Patient arrived by ambulance to ER. Natasha states SOB, Sats 94-97 on arrival to ER. Lunges with slight crackels noted Physician History: PATIENT WITH A HISTORY OF ASTHMA, CHOKED ON FOOD AT NOON AND COMPLAINS OF DIFFICULTY BREATHING. HAS SHORTNESS OF BREATH. DENIES CHEST PAIN, AUDIBLE WHEEZES OR LABORED BREATHING. Timing/Duration: today Activities at Onset: none Severity of Dyspnea-Max: mild Severity of Dyspnea-Current: mild Possible Cause: occasional episodes Modifying Factors: Improves With: coughing Associated Symptoms: cough, wheezing International travel in last 2 weeks: No Allergies/Adverse Reactions: Sulfa (Sulfonamide Antibiotics) [Sulfa(Sulfonamide Antibiotics)] Allergy (Mild, Verified 11/27/18 13:50) Rash rash aspirin Adverse Reaction (Severe, Verified 09/04/18 19:09) advised not to take it d/t it will cause her to bleed Home Medications: Metformin HCl 500 mg [Glucophage 500 MG] 500 mg PO DAILY 07/14/14 [History ] Citalopram Hydrobromide 20 mg* [ceLEXa 20 MG] 20 mg PO DAILY 07/24/14 [ History] Lorazepam 0.5 mg [Ativan 0.5 MG] 0.5 mg PO TID 07/02/15 [History] Montelukast Sodium [Singulair] 10 mg PO DAILY 07/02/15 [History] Sitagliptin Phosphate [Januvia] 100 mg PO DAILY 07/08/15 [History] Famotidine 40 mg PO BID 03/09/16 [History] Metformin HCl 500 mg [Glucophage 500 MG] 250 mg PO HS 03/09/16 [History] Diphenhydramine HCl 25 mg [Benadryl 25 mg Capsule] 25 mg PO QHS 05/28/16 [ History] Folic Acid 0.8 mg PO DAILY 08/16/16 [History] Naproxen 375 mg [Naprosyn 375 mg] 375 mg PO BID 08/16/16 [History] Furosemide [Lasix] 20 mg PO DAILY 09/15/16 [History] SUMAtriptan succinate [Imitrex 50 mg] 50 mg PO DAILY PRN PRN 09/15/16 [History] Levothyroxine Sodium 75 Mcg [Synthroid 75 Mcg] 75 mcg PO DAILY 11/04/16 [ History] Gabapentin [Gralise] 300 mg PO BID 08/28/17 [History] Metoprolol Tartrate 25 mg [Lopressor 25MG Tab] 50 mg PO DAILY 08/28/17 [ History] Rivaroxaban 10 mg Tablet [Xarelto 10 mg Tablet] 20 mg PO DAILY 08/28/17 [ History] Topiramate 25 mg [Topamax 25 MG] 50 mg PO BID 10/14/17 [History] Hx Tetanus, Diphtheria Vaccination/Date Given: Yes Hx Influenza Vaccination/Date Given: Yes Hx Pneumococcal Vaccination/Date Given: Yes Immunizations Up to Date: Yes - Review of Systems Constitutional: No Fever, No Chills Eyes: No Symptoms Ears, Nose, & Throat: No Symptoms Respiratory: Cough, Dyspnea Cardiac: No Symptoms, No Chest Pain, No Edema, No Syncope Abdominal/Gastrointestinal: Constipation, No Abdominal Pain, No Nausea, No Vomiting, No Diarrhea Genitourinary Symptoms: No Dysuria Musculoskeletal: No Back Pain, No Neck Pain Skin: No Symptoms, No Rash Neurological: No Dizziness, No Focal Weakness, No Sensory Changes Psychological: No Symptoms Endocrine: No Symptoms All Other Systems: Reviewed and Negative - Past Medical History Pertinent Past Medical History: Yes Neurological History: No Pertinent History ENT History: No Pertinent History Cardiac History: Congestive Heart Failure, High Cholesterol, Other Respiratory History: Asthma Endocrine Medical History: Diabetes Type II Musculoskeletal History: No Pertinent History GI Medical History: No Pertinent History History: No Pertinent History Psycho-Social History: No Pertinent History Female Reproductive Disorders: No Pertinent History Other Medical History: patient states she has ITP, sleep apnia - Past Surgical History Past Surgical History: Yes Neuro Surgical History: No Pertinent History Cardiac: No Pertinent History Respiratory: No Pertinent History Gastrointestinal: No Pertinent History Genitourinary: No Pertinent History Musculoskeletal: Other Female Surgical History: No Pertinent History Other Surgical History: bunion to right foot - Social History Smoking Status: Never smoker Exposure to second hand smoke: Yes Alcohol Use: None Drug Use: none Patient Lives Alone: No Significant Family History: no pertinent family hx, heart disease, hypertension - Female History Hx Last Menstrual Period: 11/20/2018 Hx Now: No - Nursing Vital Signs Nursing Vital Signs: Initial Vital Signs Temperature 99 F 11/27/18 13:36 Pulse Rate 89 11/27/18 13:36 Respiratory Rate 20 11/27/18 13:36 Blood Pressure 132/67 11/27/18 13:36 O2 Sat by Pulse Oximetry 95 11/27/18 13:36 Pain Scale Pain Intensity 7 - Physical Exam General Appearance: no apparent distress, other (THERE IS NO AUDIBLE WHEEZES OR STRIDOR, NO LABORED BREATHING) Ears, Nose, Throat Exam: hearing grossly normal, tonsillar exudate Respiratory Exam: normal breath sounds, chest tenderness, other (NO WHEEZES OR RHONCHI) Cardiovascular/Chest Exam: normal heart sounds Peripheral Pulses Exam: carotid (R): 2+, carotid (L): 2+, femoral (R): 2+, femoral (L): 2+, dorsalis-pedis (R): 2+, dorsalis-pedis (L): 2+ Neurologic Exam: alert, 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 Skin Exam: normal color SpO2 Interpretation: normal SpO2: 98 - Radiology Exams Chest X-ray Interpretation: Discussed w/ radiologist, No Infiltrates Ordered Tests: Active Orders 24 hr Category Date Time Status CHEST 2 VIEWS (PA AND LAT) Stat Exams 11/27/18 14:05 Completed Peak Expiratory Flow Rate ONCE RT 11/27/18 14:05 Active Respiratory Therapy Assessment DAILY RT 11/27/18 14:19 Active Medication Summary Discontinued Medications Generic Name Dose Route Start Last Admin Trade Name Freq PRN Reason Stop Dose Admin Albuterol/Ipratropium 3 ml 11/27/18 14:09 11/27/18 14:14 Duoneb 0.5-3 Mg/3 Ml Neb IH 11/27/18 14:10 3 ml STAT ONE Administration Albuterol/Ipratropium Confirm 11/27/18 14:13 Duoneb 0.5-3 Mg/3 Ml Neb Administered 11/27/18 14:14 Dose 3 ml IH .STK-MED ONE Prednisone 40 mg 11/27/18 14:08 11/27/18 14:17 Deltasone 20 Mg PO 11/27/18 14:09 40 mg STAT ONE Administration Prednisone Confirm 11/27/18 14:16 Deltasone 20 Mg Administered 11/27/18 14:17 Dose 40 mg .ROUTE .STK-MED ONE - Progress Progress Note: 11/27/18 14:58 PEAK FLOW PRE 250, POST 260, ADMINISTERED PREDNISONE 40MG ORALLY Counseled pt/family regarding: lab results, diagnosis, need for follow-up - Departure Departure Disposition: Home Clinical Impression: CHOKING EPISODE Condition: Stable Critical Care Time: No Referrals: TIM MAGUIRE MD [Primary Care Provider] - Additional Instructions: CONTINUE AEROSOL TREATMENTS EVERY 3-4 HOURS NEEDED. PREDNISONE 20MG, 2 TABLETS DAILY FOR 4 DAYS. ZITHROMAX 250MG, TAKE 2 TABLETS DAY 1, FOLLOWED BY 1 TABLET DAILY FOR 4 DAYS. CONSULT YOUR PRIMARY CARE PROVIDER FOR FOLLOWUP IN 1 WEEK. Prescriptions: Azithromycin 250 mg [Zithromax 250 MG TABLET] 250 mg PO ZPACK #6 tablet Prednisone 20 mg [Deltasone 20 mg] 2 tab PO DAILY #8 tablet
[2018-11-27] MEDS ORDERED: DUONEB 0.5-3 MG/3 ml Neb IH ONE ×2 (14:09→14:13)
[2018-11-27] MEDS ORDERED: DELTASONE 20 MG ONE (14:16)
--- NOTE | 2018-11-27 14:45 | XRAY ---
Indication: Cough. Choking episode. Comparison: September 26, 2018. PA/lateral chest again demonstrates normal heart and lungs. Bony thorax intact. No new/acute findings.
[2018-11-27 15:02] VITALS: O2SAT 98
[2018-11-27 15:13] VITALS: BP 100/51; PULSE 80
== END 2018-11-27 15:14 | disposition home or self-care (01) ==
LOC: ED 13:30
DX: R09.89 Other specified symptoms and signs involving the circulatory and respiratory systems (principal); Z79.899 Other long term (current) drug therapy; E11.9 Type 2 diabetes mellitus without complications
CPT/HCPCS: 71046; 94150; 94640; 99284; A9270-GY

== ENCOUNTER 2018-12-07 13:16 | Observation (INO) | payer OTHER ==
[2018-12-07] MEDS ORDERED: Pepcid 20 MG VIAL IV ONE ×2 (13:49→14:01)
[2018-12-07] MEDS ORDERED: Zofran 4 MG/2 ML VIAL IV ONE (13:49)
[2018-12-07] MEDS ORDERED: GI COCKTAIL 45 ML (Maalox/Lidocaine) PO ONE (13:51)
--- NOTE | 2018-12-07 13:57 | ERPHSYRPT ---
- History of Present Illness Time Seen by Provider: 12/07/18 13:52 Historian: patient Exam Limitations: no limitations Patient Subjective Stated Complaint: CP x 2 days. has had CP occasionally for a while.. was at work and lkeft due to the pain.. mid chest into the left shoulder. nausea with no vomiting. did not take her meds today. Triage Nursing Assessment: alert and in no distress.. CP x 2 days.. wants to find outwhat is going on with her heart has had these issues for a while. 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 hx asthma. lungs clear bilaterally. Physician History: C/o mid sternal chest pain, radiating to her left shoulder since yesterday, with mild SOB, nausea, denies abdominal pain, vomiting, productive cough, fever other complaints. Timing/Duration: yesterday Activities at Onset: none Quality: sharpness Location: substernal Chest Pain Radiation: arm (left shoulder) Severity of Pain-Max: moderate Severity of Pain-Current: moderate Modifying Factors: Improves With: nothing Associated Symptoms: nausea, shortness of breath Prior Chest Pain/Cardiac Workup: non-cardiac Nitro Today/Relief: no nitro taken today Aspirin Treatment Today: no aspirin today Allergies/Adverse Reactions: Sulfa (Sulfonamide Antibiotics) [Sulfa(Sulfonamide Antibiotics)] Allergy (Mild, Verified 11/27/18 13:50) Rash rash aspirin Adverse Reaction (Severe, Verified 09/04/18 19:09) advised not to take it d/t it will cause her to bleed Home Medications: Metformin HCl 500 mg [Glucophage 500 MG] 500 mg PO DAILY 07/14/14 [History ] Citalopram Hydrobromide 20 mg* [ceLEXa 20 MG] 20 mg PO DAILY 07/24/14 [ History] Lorazepam 0.5 mg [Ativan 0.5 MG] 0.5 mg PO TID 07/02/15 [History] Montelukast Sodium [Singulair] 10 mg PO DAILY 07/02/15 [History] Sitagliptin Phosphate [Januvia] 100 mg PO DAILY 07/08/15 [History] Famotidine 40 mg PO BID 03/09/16 [History] Metformin HCl 500 mg [Glucophage 500 MG] 250 mg PO HS 03/09/16 [History] Diphenhydramine HCl 25 mg [Benadryl 25 mg Capsule] 25 mg PO QHS 05/28/16 [ History] Folic Acid 0.8 mg PO DAILY 08/16/16 [History] Naproxen 375 mg [Naprosyn 375 mg] 375 mg PO BID 08/16/16 [History] Furosemide [Lasix] 20 mg PO DAILY 09/15/16 [History] SUMAtriptan succinate [Imitrex 50 mg] 50 mg PO DAILY PRN PRN 09/15/16 [History] Levothyroxine Sodium 75 Mcg [Synthroid 75 Mcg] 75 mcg PO DAILY 11/04/16 [ History] Gabapentin [Gralise] 300 mg PO BID 08/28/17 [History] Metoprolol Tartrate 25 mg [Lopressor 25MG Tab] 50 mg PO DAILY 08/28/17 [ History] Rivaroxaban 10 mg Tablet [Xarelto 10 mg Tablet] 20 mg PO DAILY 08/28/17 [ History] Topiramate 25 mg [Topamax 25 MG] 50 mg PO BID 10/14/17 [History] Hx Tetanus, Diphtheria Vaccination/Date Given: Yes Hx Influenza Vaccination/Date Given: Yes Hx Pneumococcal Vaccination/Date Given: Yes - Review of Systems Constitutional: No Symptoms Ears, Nose, & Throat: No Symptoms Respiratory: Dyspnea Cardiac: Chest Pain, No Edema Abdominal/Gastrointestinal: Nausea Skin: No Symptoms Neurological: No Symptoms All Other Systems: Reviewed and Negative - Past Medical History Pertinent Past Medical History: Yes Neurological History: No Pertinent History ENT History: No Pertinent History Cardiac History: Congestive Heart Failure, High Cholesterol, Other Respiratory History: Asthma Endocrine Medical History: Diabetes Type II Musculoskeletal History: No Pertinent History GI Medical History: No Pertinent History History: No Pertinent History Psycho-Social History: No Pertinent History Female Reproductive Disorders: No Pertinent History Other Medical History: patient states she has ITP, sleep apnia - Past Surgical History Past Surgical History: Yes Neuro Surgical History: No Pertinent History Cardiac: No Pertinent History Respiratory: No Pertinent History Gastrointestinal: No Pertinent History Genitourinary: No Pertinent History Musculoskeletal: Other Female Surgical History: No Pertinent History Other Surgical History: bunion to right foot - Social History Smoking Status: Never smoker Exposure to second hand smoke: No Alcohol Use: None Drug Use: none Patient Lives Alone: No Significant Family History: no pertinent family hx, heart disease, hypertension - Female History Hx Now: No - Nursing Vital Signs Nursing Vital Signs: Initial Vital Signs Temperature 98.6 F 12/07/18 13:29 Pulse Rate 77 12/07/18 13:29 Respiratory Rate 18 12/07/18 13:29 Blood Pressure 92/80 12/07/18 13:29 O2 Sat by Pulse Oximetry 98 12/07/18 13:29 Pain Scale Pain Intensity 9 - Physical Exam General Appearance: no apparent distress Eye Exam: eyes nml inspection Ears, Nose, Throat Exam: normal ENT inspection, moist mucous membranes Neck Exam: normal inspection, non-tender, supple, No carotid bruit, No JVD Respiratory Exam: normal breath sounds, lungs clear, airway intact, No chest tenderness Cardiovascular Exam: regular rate/rhythm, normal heart sounds, normal peripheral pulses, No murmur Gastrointestinal/Abdomen Exam: soft, normal bowel sounds, No tenderness Back Exam: normal inspection, No CVA tenderness Extremity Exam: normal inspection, No calf tenderness, No oleg's sign, No pedal edema Neurologic Exam: alert, 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, cooperative, normal mood/affect Skin Exam: normal color, warm, dry, No rash, No petechiae, No diaphoresis Lymphatic Exam: No adenopathy SpO2 Interpretation: normal SpO2: 98 O2 Delivery: Room Air - Course Nursing assessment & vital signs reviewed: Yes EKG Interpreted by Me: RATE (75/min), Left [place] Deviation, NORMAL INTERVALS, NORMAL QRS, Non-specific ST Changes, Other (unchanged from 09/04/18) - Radiology Exams Chest X-ray Interpretation: Interpreted by me, Negative Ordered Tests: Active Orders 24 hr Category Date Time Status Forging Press Operator STAT Care 12/07/18 13:50 Active EKG-ER Only STAT Care 12/07/18 13:49 Active IV Insertion STAT Care 12/07/18 13:49 Active CHEST 1 VIEW (PORTABLE) Stat Exams 12/07/18 13:49 Completed CBC W DIFF Stat Lab 12/07/18 13:58 Completed CK-Creatinine Phosphokinase Routine Lab 12/07/18 13:58 Completed CMP Routine Lab 12/07/18 13:58 Completed D-DIMER QUANTITATION Stat Lab 12/07/18 15:25 Completed LIPASE Routine Lab 12/07/18 13:58 Completed MAGNESIUM Routine Lab 12/07/18 13:58 Completed NT PRO BNP Routine Lab 12/07/18 13:58 Completed PROTIME WITH INR Stat Lab 12/07/18 13:58 Completed PTT Stat Lab 12/07/18 13:58 Completed TROPONIN Q3H Lab 12/07/18 13:58 Completed TROPONIN Q3H Lab 12/07/18 17:00 Ordered TROPONIN Q3H Lab 12/07/18 20:00 Ordered TROPONIN Q3H Lab 12/07/18 23:00 Ordered TROPONIN Q3H Lab 12/08/18 02:00 Ordered Medication Summary Discontinued Medications Generic Name Dose Route Start Last Admin Trade Name Freq PRN Reason Stop Dose Admin Al Hydrox/Mg Hydrox/Simethicone Confirm 12/07/18 13:59 Maalox Es 30 Ml Unit Dose Administered 12/07/18 14:00 Dose 30 ml .ROUTE .STK-MED ONE Famotidine 20 mg 12/07/18 13:49 12/07/18 14:05 Pepcid 20 Mg Vial IV 12/07/18 13:50 20 mg STAT ONE Administration Famotidine Confirm 12/07/18 14:01 Pepcid 20 Mg Vial Administered 12/07/18 14:02 Dose 20 mg IV .STK-MED ONE Lidocaine HCl Confirm 12/07/18 13:59 Xylocaine Hcl Viscous * Administered 12/07/18 14:00 Dose 15 ml .ROUTE .STK-MED ONE Magnesium Hydroxide 45 ml 12/07/18 13:51 12/07/18 14:05 Gi Cocktail 45 Ml (Maalox/Lidocaine) PO 12/07/18 13:52 45 ml STAT ONE Administration Ondansetron HCl 4 mg 12/07/18 13:49 12/07/18 14:05 Zofran 4 Mg/2 Ml Vial IV 12/07/18 13:50 4 mg STAT ONE Administration Ondansetron HCl Confirm 12/07/18 14:00 Zofran 4 Mg/2 Ml Vial Administered 12/07/18 14:01 Dose 4 mg .ROUTE .STK-MED ONE Lab/Rad Data: Laboratory Result Diagrams 12/07/18 13:58 06/20/19 13:58 Laboratory Results 12/07/18 12/07/18 12/07/18 Range/Units 15:25 13:58 13:58 WBC (4.0-10.5) K/mm3 RBC (4.1-5.4) M/mm3 Hgb (12.0-16.0) gm/dl Hct (35-47) % MCV (78-100) fl MCH (26-32) pg MCHC (32-36) g/dl RDW (11.5-14.0) % Plt Count (150-450) K/mm3 MPV (6-9.5) fl Gran % (36.0-66.0) % Eos # (Auto) (0-0.5) Absolute Lymphs (auto) (1.0-4.6) Absolute Monos (auto) (0.0-1.3) Lymphocytes % (24.0-44.0) % Monocytes % (0.0-12.0) % Eosinophils % (0.00-5.0) % Basophils % (0.0-0.4) % Absolute Granulocytes (1.4-6.9) Basophils # (0-0.4) PT 12.4 H (9.95-12.35) SECONDS INR 1.10 (0.8-3.0) APTT 31.4 (25.3-37.0) SECONDS D-Dimer 310 (215-500) ng/mL Sodium 141 (137-145) mmol/L Potassium 4.0 (3.5-5.1) mmol/L Chloride 107 (98-107) mmol/L Carbon Dioxide 25 (22-30) mmol/L Anion Gap 13.0 (5-15) MEQ/L BUN 21 H (7-17) mg/dL Creatinine 0.66 (0.52-1.04) mg/dL Estimated GFR > 60.0 ML/MIN Glucose 120 H (74-106) mg/dL Calcium 9.1 (8.4-10.2) mg/dL Magnesium 1.9 (1.6-2.3) mg/dL Total Bilirubin 0.30 (0.2-1.3) mg/dL AST 24 (14-36) U/L ALT 34 (0-35) U/L Alkaline Phosphatase 102 (38-126) U/L Creatine Kinase 44 (30-135) U/L Troponin I < 0.012 (0.000-0.034) ng/mL NT-Pro-B Natriuret Pep 121 (0-450) pg/mL Serum Total Protein 6.9 (6.3-8.2) g/dL Albumin 3.9 (3.5-5.0) g/dL Lipase 44 (23-300) U/L 12/07/18 Range/Units 13:58 WBC 6.3 (4.0-10.5) K/mm3 RBC 3.55 L (4.1-5.4) M/mm3 Hgb 9.2 L (12.0-16.0) gm/dl Hct 30.0 L (35-47) % MCV 84.5 (78-100) fl MCH 25.9 L (26-32) pg MCHC 30.7 L (32-36) g/dl RDW 15.6 H (11.5-14.0) % Plt Count 283 (150-450) K/mm3 MPV 10.0 H (6-9.5) fl Gran % 64.6 (36.0-66.0) % Eos # (Auto) 0.11 (0-0.5) Absolute Lymphs (auto) 1.63 (1.0-4.6) Absolute Monos (auto) 0.47 (0.0-1.3) Lymphocytes % 25.8 (24.0-44.0) % Monocytes % 7.4 (0.0-12.0) % Eosinophils % 1.7 (0.00-5.0) % Basophils % 0.5 (0.0-0.4) % Absolute Granulocytes 4.09 (1.4-6.9) Basophils # 0.03 (0-0.4) PT (9.95-12.35) SECONDS INR (0.8-3.0) APTT (25.3-37.0) SECONDS D-Dimer (215-500) ng/mL Sodium (137-145) mmol/L Potassium (3.5-5.1) mmol/L Chloride (98-107) mmol/L Carbon Dioxide (22-30) mmol/L Anion Gap (5-15) MEQ/L BUN (7-17) mg/dL Creatinine (0.52-1.04) mg/dL Estimated GFR ML/MIN Glucose (74-106) mg/dL Calcium (8.4-10.2) mg/dL Magnesium (1.6-2.3) mg/dL Total Bilirubin (0.2-1.3) mg/dL AST (14-36) U/L ALT (0-35) U/L Alkaline Phosphatase (38-126) U/L Creatine Kinase (30-135) U/L Troponin I (0.000-0.034) ng/mL NT-Pro-B Natriuret Pep (0-450) pg/mL Serum Total Protein (6.3-8.2) g/dL Albumin (3.5-5.0) g/dL Lipase (23-300) U/L - Progress Progress: improved Air Movement: good Progress Note: 12/07/18 16:22 Pt improved after GI cocktail and IV Pepcid, but still c/o pain, denies dizziness, nausea, or SOB, stable, reviewed her results, called Dr Maguire, discussed our findings and her current condition, he agreed to admit her for observation, patient and her family was informed and agreed. Blood Culture(s) Obtained: No Antibiotics given: No Discussed with .: Aguila Will see patient in: hospital (observation) Counseled pt/family regarding: lab results, diagnosis, rad results - Departure Departure Disposition: Observation Clinical Impression: Chest pain Qualifiers: Chest pain type: unspecified Qualified Code(s): R07.9 - Chest pain, unspecified Condition: Stable Critical Care Time: No Referrals: TIM MAGUIRE MD [Primary Care Provider] - Instructions: Chest Pain (DC), Atypical Chest Pain
[2018-12-07] MEDS ORDERED: XYLOCAINE HCl Viscous ONE (13:59)
[2018-12-07] MEDS ORDERED: MAALOX ES 30 ML UNIT DOSE ONE (13:59)
[2018-12-07] MEDS ORDERED: Zofran 4 MG/2 ML VIAL ONE (14:00)
[2018-12-07 14:10] LABS: BASOPHIL % 0.5 % (0.0-0.4); Basophil (Absolute #) 0.03 (0-0.4); Eosinophil % 1.7 % (0.00-5.0); Eosinophil (Absolute #) 0.11 (0-0.5); Granulocyte Absolute (ANC) 4.09 (1.4-6.9); Granulocytes % 64.6 % (36.0-66.0); Hemoglobin 9.2 gm/dl (12.0-16.0); Lymphocyte (Absolute #) 1.63 (1.0-4.6); Lymphocytes % 25.8 % (24.0-44.0); Mean Cell Volume 84.5 fl (78-100); Mean Corpuscular Hemoglobin 25.9 pg (26-32); Mean Corpuscular Hgb Concent. 30.7 g/dl (32-36); Monocytes % 7.4 % (0.0-12.0); Platelet Count 283 K/mm3 (150-450); Red Blood Count 3.55 M/mm3 (4.1-5.4); Red Cell Distribution Width 15.6 % (11.5-14.0); White Blood Count 6.3 K/mm3 (4.0-10.5)
[2018-12-07 14:13] LABS: INR 1.1 (0.8-3.0); PROTIME 12.4 SECONDS (9.95-12.35)
[2018-12-07 14:15] LABS: PTT 31.4 SECONDS (25.3-37.0)
--- NOTE | 2018-12-07 14:27 | XRAY ---
Indication: Chest pain. Comparison: November 27, 2018. Portable chest remains clear. Heart is within normal limits for AP portable technique. Bony thorax intact. Impression: Stable nonacute chest.
[2018-12-07 14:29] LABS: ALBUMIN 3.9 g/dL (3.5-5.0); ALKALINE PHOSPHATASE 102 U/L (38-126); BLOOD UREA NITROGEN 21 mg/dL (7-17); CHLORIDE 107 mmol/L (98-107); CK-Creatinine Phosphokinase 44 U/L (30-135); Calcium 9.1 mg/dL (8.4-10.2); Carbon Dioxide 25 mmol/L (22-30); Creatinine 1 0.66 mg/dL (0.52-1.04); Glucose 120 mg/dL (74-106); LIPASE 44 U/L (23-300); MAGNESIUM 1.9 mg/dL (1.6-2.3); NT PRO BNP 121 pg/mL (0-450); SGOT/AST 24 U/L (14-36); SGPT/ALT 34 U/L (0-35); SODIUM 141 mmol/L (137-145); Total Protein 6.9 g/dL (6.3-8.2)
[2018-12-07 14:34] LABS: TROPONIN < 0.012 ng/mL (0.000-0.034)
[2018-12-07] MEDS ORDERED: TYLENOL 325 MG PO PRN (16:24)
[2018-12-07] MEDS ORDERED: MAALOX ES 30 ML UNIT DOSE PO PRN (16:24)
[2018-12-07] MEDS ORDERED: MILK OF MAGNESIA 30 ML PO PRN (16:24)
[2018-12-07] MEDS ORDERED: Senokot-S Tablet PO PRN (16:24)
[2018-12-07] MEDS ORDERED: Nitrostat 0.4 MG Tablet SL PRN (16:24)
[2018-12-07] MEDS ORDERED: NovoLOG Insulin SQ PRN (16:24)
[2018-12-07] MEDS: PLAVIX 75 MG Tablet PO ONE ×2 (17:59→18:02)
[2018-12-07] MEDS: MORPHINE SULFATE 2 MG INJ IV PRN (21:03)
[2018-12-07] MEDS: Zofran 4 MG/2 ML VIAL IV PRN (21:03)
[2018-12-07] MEDS ORDERED: Pepcid 20 MG PO SCH (22:00)
[2018-12-07] MEDS ORDERED: Naprosyn 500 MG ONE (22:01)
[2018-12-07] MEDS: TOPIRAMATE PO SCH (22:59)
[2018-12-07] MEDS: Glucophage 500 MG PO SCH (22:59)
[2018-12-07] MEDS: Ativan 0.5 MG PO SCH (22:59)
[2018-12-07] MEDS: NAPROSYN 375 MG PO SCH (22:59)
[2018-12-07] MEDS: Pepcid 20 MG PO SCH (23:00)
[2018-12-07] MEDS: BENADRYL 25 MG CAPSULE PO SCH (23:00)
[2018-12-07] MEDS: Neurontin 400 MG PO SCH (23:03)
[2018-12-08] MEDS: Zofran 4 MG/2 ML VIAL IV PRN ×2 (01:16→09:00)
[2018-12-08] MEDS: MORPHINE SULFATE 2 MG INJ IV PRN ×2 (01:17→09:00)
[2018-12-08 02:54] LABS: Risk Ratio 4.1
[2018-12-08] MEDS ORDERED: NON-FORMULARY ITEM (Sumatriptan Succinate [Imitrex 50 Mg] 50 MG) PO PRN (07:09)
[2018-12-08] MEDS ORDERED: MEDICATION INTERVENTION PO SCH (07:30)
[2018-12-08] MEDS ORDERED: Glucophage 500 MG PO SCH (08:00)
--- NOTE | 2018-12-08 09:01 | PCM.HP ---
History of Present Illness - Chief Complaint Chief Complaint: Chest Pain History of Present Illness: is a 38 year old female pt of Dr. Sheehan with PMHx morbid obesity , DM, CHF, afib, COPD/asthma who was admitted through ER with chest pain. She has had pain off and on x 2 years but has been worse for the past 2 days. Was intermittent, now constant. Sharp/sabbing, with some pressure and ache, 8/10. Moving and sitting up makes it worse. Tylenol without relief; morphine wiht relief. The pain is substernal and radiates to L shoulder; does have some palpitations, nausea, and SOB. denies diaphoresis. Her EKG was NSR with L axis deviation, no acute ST changes. Her troponins are negative x 5. Of note, she has a hemoglobin of 9.2; she says she has had a transfusion before "for platelets." Pt has seen Dr. Walker in the past and was told she is too obese for a heart cath. 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 Her mother had an ND at age 40. Pt's father had CABG about age 50. Pt has not been a smoker. Pt does have panic attacks but states this pain feels different. She admits to having anxiety about her heart. Pt had a stress test last 1-2 years ago, she thinks - result not currently available to me. She does not recall having an echocardiogram. - Review of Systems Respiratory: Cough, Short Of Breath Cardiac: Chest Pain, Palpitations Psychological: Anxiety All Other Systems: Reviewed and Negative Medications & Allergies Home Medications: Home Medication List Metformin HCl 500 mg [Glucophage 500 MG] 500 mg PO DAILY 07/14/14 [ History Confirmed 12/07/18] Citalopram Hydrobromide 20 mg* [ceLEXa 20 MG] 20 mg PO DAILY 07/24/14 [ History Confirmed 12/07/18] Lorazepam 0.5 mg [Ativan 0.5 MG] 0.5 mg PO TID 07/02/15 [History Confirmed 12/07/18] Montelukast Sodium [Singulair] 10 mg PO DAILY 07/02/15 [History Confirmed ] Sitagliptin Phosphate [Januvia] 100 mg PO DAILY 07/08/15 [History Confirmed ] Famotidine 40 mg PO BID 03/09/16 [History Confirmed 12/07/18] Metformin HCl 500 mg [Glucophage 500 MG] 250 mg PO HS 03/09/16 [History Confirmed 12/07/18] Diphenhydramine HCl 25 mg [Benadryl 25 mg Capsule] 25 mg PO QHS 05/28/16 [ History Confirmed 12/07/18] Folic Acid 0.8 mg PO DAILY 08/16/16 [History Confirmed 12/07/18] Naproxen 375 mg [Naprosyn 375 mg] 375 mg PO BID 08/16/16 [History Confirmed 12/07/18] Furosemide [Lasix] 20 mg PO DAILY 09/15/16 [History Confirmed 12/07/18] SUMAtriptan succinate [Imitrex 50 mg] 50 mg PO DAILY PRN PRN 09/15/16 [History Confirmed 12/07/18] Levothyroxine Sodium 75 Mcg [Synthroid 75 Mcg] 75 mcg PO DAILY 11/04/16 [ History Confirmed 12/07/18] Acetaminophen 650 mg PO Q4H PRN PRN #30 tablet 12/03/16 [Rx Confirmed 12/07/18] Metoprolol Tartrate 25 mg [Lopressor 25MG Tab] 12.5 mg PO DAILY 08/28/17 [ History Confirmed 12/07/18] Rivaroxaban 10 mg Tablet [Xarelto 10 mg Tablet] 20 mg PO DAILY 08/28/17 [ History Confirmed 12/07/18] Topiramate 25 mg [Topamax 25 MG] 50 mg PO BID 10/14/17 [History Confirmed 12/07/18] Gabapentin 400 mg [Neurontin 400 MG] 400 mg PO BID 12/07/18 [History Confirmed 12/07/18] Allergies/Adverse Reactions: Allergies Allergy/AdvReac Type Severity Reaction Status Date / Time Sulfa (Sulfonamide Allergy Mild Rash Verified 12/07/18 20:53 Antibiotics) [Sulfa(Sulfonamide Antibiotics)] aspirin AdvReac Severe Verified 12/07/18 20:53 - Past Medical History Past Medical History: Yes Neurological History: No Pertinent History ENT History: No Pertinent History Cardiac History: Congestive Heart Failure, High Cholesterol, Other Respiratory History: Asthma Endocrine Medical History: Diabetes Type II Musculoskelatal History: No Pertinent History GI Medical History: GERD History: No Pertinent History Pyscho-Social History: Anxiety, Depression Reproductive Disorders: Fibroids Comment: patient states she has ITP, sleep apnea - Female History Hx Last Menstrual Period: 12/05/18 Are you now?: No - Past Surgical History Past Surgical History: Yes Neuro Surgical History: No Pertinent History Cardiac History: No Pertinent History Respiratory Surgery: No Pertinent History GI Surgical History: No Pertinent History Genitourinary Surgical Hx: No Pertinent History Musculskeletal Surgical Hx: Other Female Surgical History: No Pertinent History Other Surgical History: bunion to right foot - Social History Smoking Status: Never smoker Exposure to second hand smoke: No Alcohol: None Drug Use: none Significant Family History: no pertinent family hx, heart disease, hypertension - Physical Exam Vital Signs: Vital Signs - 24 hr Temp Pulse Pulse Resp BP Pulse Ox 12/08/18 08:00 98.2 F 76 18 113/60 99 12/08/18 05:00 99 12/08/18 04:00 98.4 F 69 18 128/58 99 12/08/18 01:00 96 12/08/18 00:00 97.8 F 74 19 145/61 94 L 12/07/18 20:51 98.1 F 89 18 138/60 96 12/07/18 20:00 90 L 12/07/18 17:19 96.7 F 70 16 113/81 97 12/07/18 17:17 96 12/07/18 16:51 96.7 F 70 16 113/81 97 12/07/18 16:50 96.7 F 70 16 113/81 97 12/07/18 16:24 98 12/07/18 16:04 75 16 108/60 98 12/07/18 14:34 57 L 16 116/69 99 12/07/18 13:29 98.6 F 77 77 18 92/80 98 Oxygen-Last 24 hours O2 Percentage 2 Liters = 28% O2 Percentage 2 Liters = 28% O2 Percentage 2 Liters = 28% General Appearance: mild distress (states increased CP since getting up and going to bathroom), alert, obese Neurologic Exam: 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, cooperative Eye Exam: eyes nml inspection Neck Exam: normal inspection, non-tender, No lymphadenopathy Respiratory Exam: normal breath sounds, lungs clear, wheezing (faint scattered) , No crackles/rales, No rhonchi Cardiovascular Exam: regular rate/rhythm, normal heart sounds, murmur (1/) Gastrointestinal/Abdomen Exam: soft, normal bowel sounds, No tenderness, No distention, No mass, No guarding, No rebound Back Exam: normal inspection, No CVA tenderness, No rash Extremity Exam: normal inspection, No pedal edema, No swelling Skin Exam: normal color, warm, dry, No rash Results - Labs Lab/Micro Results: Accuchecks Date 12/08/18 Date 12/07/18 Date 12/07/18 Time 08:04 Time 22:00 Time 16:30 Accucheck Value: 106 Accucheck Value: 137 Accucheck Value: 107 Lab Results-Last 24 Hours 12/07/18 12/07/18 12/07/18 Range/Units 13:58 13:58 13:58 WBC 6.3 (4.0-10.5) K/mm3 RBC 3.55 L (4.1-5.4) M/mm3 Hgb 9.2 L (12.0-16.0) gm/dl Hct 30.0 L (35-47) % MCV 84.5 (78-100) fl MCH 25.9 L (26-32) pg MCHC 30.7 L (32-36) g/dl RDW 15.6 H (11.5-14.0) % Plt Count 283 (150-450) K/mm3 MPV 10.0 H (6-9.5) fl Gran % 64.6 (36.0-66.0) % Eos # (Auto) 0.11 (0-0.5) Absolute Lymphs (auto) 1.63 (1.0-4.6) Absolute Monos (auto) 0.47 (0.0-1.3) Lymphocytes % 25.8 (24.0-44.0) % Monocytes % 7.4 (0.0-12.0) % Eosinophils % 1.7 (0.00-5.0) % Basophils % 0.5 (0.0-0.4) % Absolute Granulocytes 4.09 (1.4-6.9) Basophils # 0.03 (0-0.4) PT 12.4 H (9.95-12.35) SECONDS INR 1.10 (0.8-3.0) APTT 31.4 (25.3-37.0) SECONDS D-Dimer (215-500) ng/mL Sodium 141 (137-145) mmol/L Potassium 4.0 (3.5-5.1) mmol/L Chloride 107 (98-107) mmol/L Carbon Dioxide 25 (22-30) mmol/L Anion Gap 13.0 (5-15) MEQ/L BUN 21 H (7-17) mg/dL Creatinine 0.66 (0.52-1.04) mg/dL Estimated GFR > 60.0 ML/MIN Glucose 120 H (74-106) mg/dL Calcium 9.1 (8.4-10.2) mg/dL Magnesium 1.9 (1.6-2.3) mg/dL Total Bilirubin 0.30 (0.2-1.3) mg/dL AST 24 (14-36) U/L ALT 34 (0-35) U/L Alkaline Phosphatase 102 (38-126) U/L Creatine Kinase 44 (30-135) U/L Troponin I < 0.012 (0.000-0.034) ng/mL NT-Pro-B Natriuret Pep 121 (0-450) pg/mL Serum Total Protein 6.9 (6.3-8.2) g/dL Albumin 3.9 (3.5-5.0) g/dL Triglycerides (30-150) mg/dL Cholesterol (50-200) mg/dL LDL Cholesterol (30-100) mg/dL HDL Cholesterol (40-60) mg/dL Heart Disease Risk Ratio Lipase 44 (23-300) U/L 12/07/18 12/07/18 12/07/18 Range/Units 15:25 17:15 20:17 WBC (4.0-10.5) K/mm3 RBC (4.1-5.4) M/mm3 Hgb (12.0-16.0) gm/dl Hct (35-47) % MCV (78-100) fl MCH (26-32) pg MCHC (32-36) g/dl RDW (11.5-14.0) % Plt Count (150-450) K/mm3 MPV (6-9.5) fl Gran % (36.0-66.0) % Eos # (Auto) (0-0.5) Absolute Lymphs (auto) (1.0-4.6) Absolute Monos (auto) (0.0-1.3) Lymphocytes % (24.0-44.0) % Monocytes % (0.0-12.0) % Eosinophils % (0.00-5.0) % Basophils % (0.0-0.4) % Absolute Granulocytes (1.4-6.9) Basophils # (0-0.4) PT (9.95-12.35) SECONDS INR (0.8-3.0) APTT (25.3-37.0) SECONDS D-Dimer 310 (215-500) ng/mL Sodium (137-145) mmol/L Potassium (3.5-5.1) mmol/L Chloride (98-107) mmol/L Carbon Dioxide (22-30) mmol/L Anion Gap (5-15) MEQ/L BUN (7-17) mg/dL Creatinine (0.52-1.04) mg/dL Estimated GFR ML/MIN Glucose (74-106) mg/dL Calcium (8.4-10.2) mg/dL Magnesium (1.6-2.3) mg/dL Total Bilirubin (0.2-1.3) mg/dL AST (14-36) U/L ALT (0-35) U/L Alkaline Phosphatase (38-126) U/L Creatine Kinase (30-135) U/L Troponin I < 0.012 < 0.012 (0.000-0.034) ng/mL NT-Pro-B Natriuret Pep (0-450) pg/mL Serum Total Protein (6.3-8.2) g/dL Albumin (3.5-5.0) g/dL Triglycerides (30-150) mg/dL Cholesterol (50-200) mg/dL LDL Cholesterol (30-100) mg/dL HDL Cholesterol (40-60) mg/dL Heart Disease Risk Ratio Lipase (23-300) U/L 12/07/18 12/08/18 12/08/18 Range/Units 23:24 02:19 02:19 WBC (4.0-10.5) K/mm3 RBC (4.1-5.4) M/mm3 Hgb (12.0-16.0) gm/dl Hct (35-47) % MCV (78-100) fl MCH (26-32) pg MCHC (32-36) g/dl RDW (11.5-14.0) % Plt Count (150-450) K/mm3 MPV (6-9.5) fl Gran % (36.0-66.0) % Eos # (Auto) (0-0.5) Absolute Lymphs (auto) (1.0-4.6) Absolute Monos (auto) (0.0-1.3) Lymphocytes % (24.0-44.0) % Monocytes % (0.0-12.0) % Eosinophils % (0.00-5.0) % Basophils % (0.0-0.4) % Absolute Granulocytes (1.4-6.9) Basophils # (0-0.4) PT (9.95-12.35) SECONDS INR (0.8-3.0) APTT (25.3-37.0) SECONDS D-Dimer (215-500) ng/mL Sodium (137-145) mmol/L Potassium (3.5-5.1) mmol/L Chloride (98-107) mmol/L Carbon Dioxide (22-30) mmol/L Anion Gap (5-15) MEQ/L BUN (7-17) mg/dL Creatinine (0.52-1.04) mg/dL Estimated GFR ML/MIN Glucose (74-106) mg/dL Calcium (8.4-10.2) mg/dL Magnesium (1.6-2.3) mg/dL Total Bilirubin (0.2-1.3) mg/dL AST (14-36) U/L ALT (0-35) U/L Alkaline Phosphatase (38-126) U/L Creatine Kinase (30-135) U/L Troponin I < 0.012 < 0.012 (0.000-0.034) ng/mL NT-Pro-B Natriuret Pep (0-450) pg/mL Serum Total Protein (6.3-8.2) g/dL Albumin (3.5-5.0) g/dL Triglycerides 105 (30-150) mg/dL Cholesterol 134 (50-200) mg/dL LDL Cholesterol 81 (30-100) mg/dL HDL Cholesterol 33 L (40-60) mg/dL Heart Disease Risk Ratio 4.1 Lipase (23-300) U/L Accuchecks Date 12/08/18 Date 12/07/18 Date 12/07/18 Time 08:04 Time 22:00 Time 16:30 Accucheck Value: 106 Accucheck Value: 137 Accucheck Value: 107 - Radiology Impressions Radiology Exams & Impressions: Radiology Procedures Category Date Time Status CHEST 1 VIEW (PORTABLE) Stat Exams 12/07/18 13:49 Completed - Other Procedures and Tests Respiratory Therapy 12/07/18 16:24 Oxygen Nasal Cannula 2 lpm 12/09/18 05:00 EKG ONCE 12/10/18 05:00 EKG ONCE Assessment/Plan (1) Chest pain Current Visit: Yes Status: Acute Qualifiers: Chest pain type: unspecified Qualified Code(s): R07.9 - Chest pain, unspecified Assessment & Plan: Her troponins are neg and her EKG was non acute. However I am concerned with her PMHx and would like to do a telecardiology consult. Echo today. She will need workup outpatient. She is on naproxen. 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
[2018-12-08] MEDS ORDERED: Januvia 50 MG PO SCH (10:00)
[2018-12-08] MEDS ORDERED: LASIX 20 MG PO SCH (10:00)
[2018-12-08] MEDS ORDERED: ceLEXa 20 MG PO SCH (10:00)
[2018-12-08] MEDS ORDERED: XARELTO 10 MG TABLET PO SCH (10:00)
[2018-12-08] MEDS ORDERED: Lopressor 25MG Tab PO SCH (10:00)
[2018-12-08] MEDS ORDERED: Singulair 10 MG PO SCH (10:00)
[2018-12-08] MEDS ORDERED: NON-FORMULARY ITEM (Folic Acid [Folic Acid] 0.8 MG) PO SCH (10:00)
[2018-12-08] MEDS ORDERED: SYNTHROID 75 MCG PO SCH (10:00)
[2018-12-08] MEDS ORDERED: FOLATE 1 MG PO SCH (10:00)
[2018-12-08] MEDS: Ativan 0.5 MG PO SCH ×3 (10:32→22:55)
[2018-12-08] MEDS: Pepcid 20 MG PO SCH ×2 (10:34→20:57)
[2018-12-08] MEDS: NAPROSYN 375 MG PO SCH ×2 (10:35→21:00)
[2018-12-08] MEDS: Neurontin 400 MG PO SCH ×2 (10:35→21:01)
[2018-12-08] MEDS: TOPIRAMATE PO SCH ×2 (10:36→21:00)
[2018-12-08] MEDS ORDERED: NORCO 5/325 MG PO PRN (14:55)
[2018-12-08] MEDS ORDERED: NORCO 7.5/325 MG TAB PO PRN (20:32)
[2018-12-08] MEDS: Glucophage 500 MG PO SCH (20:58)
[2018-12-08] MEDS: BENADRYL 25 MG CAPSULE PO SCH (23:04)
[2018-12-09 07:39] VITALS: BP 101/58; PULSE 68; O2SAT 99
--- NOTE | 2018-12-09 08:01 | PCM.DS ---
Discharge Summary Date of Admission: 12/07/18 16:49 Admitting Physician: TIM MAGUIRE Consults: Consults on Case 12/08/18 09:06 Consult Cardiology ROUTINE Primary Care Provider: TIM MAGUIRE Allergies Allergies Sulfa (Sulfonamide Antibiotics) [Sulfa(Sulfonamide Antibiotics)] Allergy (Mild, Verified 12/07/18 20:53) Rash rash aspirin Adverse Reaction (Severe, Verified 12/07/18 20:53) advised not to take it d/t it will cause her to bleed Hospital Summary - Hospital Course Hospital Course: Chief Complaint Diagnosis Chest Pain Allergies Allergy/AdvReac Type Severity Reaction Status Date / Time Sulfa (Sulfonamide Allergy Mild Rash Verified 12/07/18 20:53 Antibiotics) [Sulfa(Sulfonamide Antibiotics)] aspirin AdvReac Severe Verified 12/07/18 20:53 Vital Signs (Last 24 hours) Temp Pulse Resp BP Pulse Ox 12/09/18 07:38 97.7 F 68 18 101/58 99 12/09/18 06:00 100 12/09/18 04:00 98.2 F 69 20 107/54 100 12/09/18 02:00 99 12/09/18 00:00 98.6 F 64 20 123/57 99 12/08/18 22:08 98 12/08/18 20:00 98.4 F 72 20 121/58 99 12/08/18 18:00 95 12/08/18 16:00 98.6 F 66 19 112/54 95 12/08/18 14:03 99 12/08/18 12:00 97.8 F 74 18 119/61 100 12/08/18 09:00 99 12/08/18 08:00 98.2 F 76 18 113/60 99 Home Medications Medication Instructions Recorded Confirmed Last Taken Type Gabapentin 400 mg [Neurontin 400 mg PO BID 12/07/18 12/07/18 12/06/18 History 400 MG] Current Medications Generic Name Dose Route Start Last Admin Trade Name Freq PRN Reason Stop Dose Admin Acetaminophen 650 mg 12/07/18 16:24 12/07/18 17:59 Tylenol 325 Mg PO 01/06/19 16:23 650 mg Q4H PRN PRN Administration PAIN AND/OR FEVER Hydrocodone Bitart/Acetaminophen 1 tab 12/08/18 20:32 12/08/18 20:57 [place] 7.5/325 Mg Tab PO 12/13/18 20:31 1 tab Q4H PRN PRN Administration PAIN Al Hydrox/Mg Hydrox/Simethicone 30 ml 12/07/18 16:24 Maalox Es 30 Ml Unit Dose PO 01/06/19 16:23 Q4H PRN PRN INDIGESTION Citalopram Hydrobromide 20 mg 12/08/18 10:00 12/08/18 10:33 Celexa 20 Mg PO 01/07/19 09:59 20 mg DAILY CAITY Administration Diphenhydramine HCl 25 mg 12/07/18 22:00 12/08/18 23:04 Benadryl 25 Mg Capsule PO 01/06/19 21:59 25 mg HS CAITY Administration Famotidine 40 mg 12/07/18 22:00 12/08/18 20:57 Pepcid 20 Mg PO 01/06/19 21:59 40 mg BID CAITY Administration Folic Acid 1 mg 12/08/18 10:00 12/08/18 10:33 Folate 1 Mg PO 01/07/19 09:59 1 mg DAILY CAITY Administration Furosemide 20 mg 12/08/18 10:00 12/08/18 10:35 Lasix 20 Mg PO 01/07/19 09:59 20 mg DAILY CAITY Administration Gabapentin 400 mg 12/07/18 22:00 12/08/18 21:01 Neurontin 400 Mg PO 01/06/19 21:59 400 mg BID CAIYT Administration Insulin Aspart 0 unit 12/07/18 16:24 Novolog Insulin SQ 01/06/19 16:23 PRN PRN HYPERGLYCEMIA Levothyroxine Sodium 75 mcg 12/08/18 10:00 12/08/18 10:33 Synthroid 75 Mcg PO 01/07/19 09:59 75 mcg DAILY CAITY Administration Lorazepam 0.5 mg 12/07/18 22:00 12/08/18 22:55 Ativan 0.5 Mg PO 01/06/19 21:59 Not Given TID CAITY Magnesium Hydroxide 30 - 60 ml 12/07/18 16:24 Milk Of Magnesia 30 Ml PO 01/06/19 16:23 QDP PRN CONSTIPATION Metformin HCl 250 mg 12/07/18 22:00 12/08/18 20:58 Glucophage 500 Mg PO 01/06/19 21:59 250 mg HS CAITY Administration Metformin HCl 500 mg 12/08/18 08:00 12/08/18 07:59 Glucophage 500 Mg PO 01/07/19 07:59 500 mg BREAKFAST CAITY Administration Metoprolol Tartrate 12.5 mg 12/08/18 10:00 12/08/18 10:33 Lopressor 25mg Tab PO 01/07/19 09:59 12.5 mg DAILY CAITY Administration Miscellaneous Information 1 each 12/08/18 07:30 Medication Intervention PO 01/07/19 07:29 .RN TO CHECK ON CAITY Montelukast Sodium 10 mg 12/08/18 10:00 12/08/18 10:33 Singulair 10 Mg PO 01/07/19 09:59 10 mg DAILY CAITY Administration Morphine Sulfate 2 mg 12/07/18 20:54 12/08/18 09:00 Morphine Sulfate 2 Mg Inj IV 12/12/18 20:53 2 mg Q4H PRN PRN Administration PAIN Naproxen 375 mg 12/07/18 22:00 12/08/18 21:00 Naprosyn 375 Mg PO 01/06/19 21:59 375 mg BID CAITY Administration Nitroglycerin 0.4 mg 12/07/18 16:24 Nitrostat 0.4 Mg Tablet SL 01/06/19 16:23 .Q5MIN PRN CHEST PAIN Ondansetron HCl 4 mg 12/07/18 16:24 12/08/18 09:00 Zofran 4 Mg/2 Ml Vial IV 01/06/19 16:23 4 mg Q4H PRN PRN Administration NAUSEA/VOMITING Rivaroxaban 20 mg 12/08/18 10:00 12/08/18 10:33 Xarelto 10 Mg Tablet PO 01/07/19 09:59 20 mg DAILY CAITY Administration Senna/Docusate Sodium 2 udtab 12/07/18 16:24 Senokot-S Tablet PO 01/06/19 16:23 BID PRN PRN CONSTIPATION Sitagliptin Phosphate 100 mg 12/08/18 10:00 12/08/18 10:33 Januvia 50 Mg PO 01/07/19 09:59 100 mg DAILY CAITY Administration Sodium Chloride 10 ml 12/09/18 14:00 Sodium Chloride 0.9% 10 Ml Flush Syringe IV 01/08/19 13:59 Q8HT CAITY Topiramate 50 mg 12/07/18 22:00 12/08/18 21:00 Topiramate PO 01/06/19 21:59 50 mg BID CAITY Administration Discontinued Medications Generic Name Dose Route Start Last Admin Trade Name Freq PRN Reason Stop Dose Admin Hydrocodone Bitart/Acetaminophen 1 tab 12/08/18 14:55 12/08/18 15:14 [place] 5/325 Mg PO 12/13/18 14:54 1 tab Q4H PRN PRN Administration PAIN Al Hydrox/Mg Hydrox/Simethicone Confirm 12/07/18 13:59 Maalox Es 30 Ml Unit Dose Administered 12/07/18 14:00 Dose 30 ml .ROUTE .STK-MED ONE Clopidogrel Bisulfate 75 mg 12/07/18 16:42 12/07/18 18:02 Plavix 75 Mg Tablet PO 12/07/18 16:43 Not Given STAT ONE Famotidine 20 mg 12/07/18 13:49 12/07/18 14:05 Pepcid 20 Mg Vial IV 12/07/18 13:50 20 mg STAT ONE Administration Famotidine Confirm 12/07/18 14:01 Pepcid 20 Mg Vial Administered 12/07/18 14:02 Dose 20 mg IV .STK-MED ONE Famotidine 20 mg 12/07/18 22:00 Pepcid 20 Mg PO 01/06/19 21:59 BID CAITY Lidocaine HCl Confirm 12/07/18 13:59 Xylocaine Hcl Viscous * Administered 12/07/18 14:00 Dose 15 ml .ROUTE .STK-MED ONE Magnesium Hydroxide 45 ml 12/07/18 13:51 12/07/18 14:05 Gi Cocktail 45 Ml (Maalox/Lidocaine) PO 12/07/18 13:52 45 ml STAT ONE Administration Naproxen Confirm 12/07/18 22:01 Naprosyn 500 Mg Administered 12/07/18 22:02 Dose 500 mg .ROUTE .STK-MED ONE Ondansetron HCl 4 mg 12/07/18 13:49 12/07/18 14:05 Zofran 4 Mg/2 Ml Vial IV 12/07/18 13:50 4 mg STAT ONE Administration Ondansetron HCl Confirm 12/07/18 14:00 Zofran 4 Mg/2 Ml Vial Administered 12/07/18 14:01 Dose 4 mg .ROUTE .STK-MED ONE Intake & Output (Last 24 hours) 12/06/18 12/07/18 12/08/18 12/09/18 11:59 11:59 11:59 11:59 Intake Total 1320 1620 Balance 1320 1620 Weight 147.8 kg 147.8 kg Laboratory Results (Last 24 hours) 12/08/18 12/08/18 14:55 02:00 ESR 25 H C-React Prot High Sens 6.56 H Orders (Last 24 hours) Category Date Time Status Consult Cardiology ROUTINE Cons 12/08/18 09:06 Completed ECHO W/2D AND DOPPLER [US] Routine Exams 12/08/18 10:30 Taken Erythrocyte Sedimentation Rate Urgent Lab 12/08/18 14:55 Completed Citalopram Hydrobromide 20 mg* [ceLEXa 20 MG] Med 12/08/18 10:00 Active 20 mg PO DAILY Folic Acid 1 mg [Folate 1 mg] Med 12/08/18 10:00 Active 1 mg PO DAILY Furosemide 20 mg [Lasix 20 mg] Med 12/08/18 10:00 Active 20 mg PO DAILY Hydrocodone /APAP 7.5/325 mg [[place] 7.5/325 mg Tab Med 12/08/18 20:32 Active ] 1 tab PO Q4H PRN PRN Hydrocodone/APAP 5/325 [[place] 5/325 mg] Med 12/08/18 14:55 Discontinued 1 tab PO Q4H PRN PRN Levothyroxine Sodium 75 Mcg [Synthroid 75 Mcg] Med 12/08/18 10:00 Active 75 mcg PO DAILY Medication Intervention Med 12/08/18 07:30 Active 1 each PO .RN TO CHECK ON Metformin HCl 500 mg [Glucophage 500 MG] Med 12/08/18 08:00 Active 500 mg PO BREAKFAST Metoprolol Tartrate 25 mg [Lopressor 25MG Tab] Med 12/08/18 10:00 Active 12.5 mg PO DAILY Montelukast Sodium 10 mg [Singulair 10 MG] Med 12/08/18 10:00 Active 10 mg PO DAILY NaCl 0.9% 10 ML FLUSH [Sodium Chloride 0.9% 10 ML FLUSH Med 12/09/18 14:00 Active Syringe] 10 ml IV Q8HT Rivaroxaban 10 mg Tablet [Xarelto 10 mg Tablet] Med 12/08/18 10:00 Active 20 mg PO DAILY Sitagliptin Phosphate 50 MG [Januvia 50 MG] Med 12/08/18 10:00 Active 100 mg PO DAILY EKG ONCE RT 12/09/18 05:00 Completed EKG ONCE RT 12/10/18 05:00 Active Patient Care Notes (Last 24 hours) 12/08/18 14:56 Nursing Note by Nahomy Funez Call placed to Dr Mcgraw to report decreased Hr with last dose of Morphine and throughout the night at times. Received new order for [place] 5-325mg, 1 tablet po q4 hours prn for pain, Initialized on 12/08/18 14:56 - END OF NOTE - Vitals & Intake/Output Vital Signs: Vital Signs Temperature 97.7 F 12/09/18 07:38 Pulse Rate 68 12/09/18 07:38 Respiratory Rate 18 12/09/18 07:38 Blood Pressure 101/58 12/09/18 07:38 O2 Sat by Pulse Oximetry 99 12/09/18 07:38 Oxygen-Last Documented O2 Percentage 2 Liters = 28% Intake & Output: Intake & Output 12/06/18 12/07/18 12/08/18 12/09/18 11:59 11:59 11:59 11:59 Intake Total 1320 1620 Balance 1320 1620 Weight 147.8 kg 147.8 kg - Lab Result Diagrams: 12/07/18 13:58 12/07/18 13:58 Lab Results-Last 24 Hrs: Accuchecks Date 12/08/18 Date 12/08/18 Time 16:30 Time 11:43 Accucheck Value: 110 Accucheck Value: 124 Accucheck Value: 110 Lab Results-Last 24 Hours 12/08/18 12/08/18 Range/Units 02:00 14:55 ESR 25 H (0-20) mm/hr C-React Prot High Sens 6.56 H (0.00-3.00) mg/L Micro Results-Entire Visit: Accuchecks Date 12/08/18 Date 12/08/18 Time 16:30 Time 11:43 Accucheck Value: 110 Accucheck Value: 124 Accucheck Value: 110 - Radiology Exams Ordered Rad Exams-Entire Visit: Radiology Procedures Category Date Time Status CHEST 1 VIEW (PORTABLE) Stat Exams 12/07/18 13:49 Completed ECHO W/2D AND DOPPLER [US] Routine Exams 12/08/18 10:30 Taken - Procedures and Test Procedures and Tests throughout Hospitalization: Therapy Orders & Screens 12/07/18 16:24 Oxygen Nasal Cannula 2 lpm Comment: 12/07/18 16:25 EKG Q8HX2,QAMX3,PRN Comment: 12/07/18 21:23 EKG ONCE Comment: 12/08/18 05:00 EKG ONCE Comment: 12/09/18 05:00 EKG ONCE Comment: 12/10/18 05:00 EKG ONCE Comment: Discharge Exam General Appearance: no apparent distress, alert Neurologic Exam: alert, 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, cooperative, normal mood/affect, nml cerebellar function, sensation nml, No motor deficits Eye Exam: PERRL, EOMI, eyes nml inspection Ears, Nose, Throat Exam: normal ENT inspection, pharynx normal, moist mucous membranes Neck Exam: normal inspection, non-tender, supple, full range of motion Respiratory Exam: normal breath sounds, lungs clear, No respiratory distress Cardiovascular Exam: regular rate/rhythm, normal heart sounds Gastrointestinal/Abdomen Exam: soft, No tenderness, No mass Pelvic Exam: deferred Rectal Exam: deferred Back Exam: normal inspection, normal range of motion, No CVA tenderness, No vertebral tenderness Extremity Exam: normal inspection, normal range of motion Skin Exam: normal color, warm, dry Final Diagnosis/Problem List - Final Discharge Diagnosis/Problem (1) Chest pain Current Visit: Yes Status: Acute Assessment & Plan: TX ruled out, cardiology consult reviewed and recommendations to follow Code(s): R07.9 - CHEST PAIN, UNSPECIFIED (2) Hx of intrinsic asthma Current Visit: Yes Status: Chronic Code(s): Z87.09 - PERSONAL HISTORY OF OTHER DISEASES OF THE RESPIRATORY SYSTEM (3) Hypertension Current Visit: Yes Status: Chronic Code(s): I10 - ESSENTIAL (PRIMARY) HYPERTENSION (4) Morbid obesity Current Visit: No Status: Chronic Code(s): E66.01 - MORBID (SEVERE) OBESITY DUE TO EXCESS CALORIES - Discharge Discharge Date: 12/09/18 Disposition: Home, Self-Care Condition: Stable Prescriptions: Continue Metformin HCl 500 mg [Glucophage 500 MG] 500 mg PO DAILY Citalopram Hydrobromide 20 mg* [ceLEXa 20 MG] 20 mg PO DAILY Montelukast Sodium [Singulair] 10 mg PO DAILY Lorazepam 0.5 mg [Ativan 0.5 MG] 0.5 mg PO TID Sitagliptin Phosphate [Januvia] 100 mg PO DAILY Metformin HCl 500 mg [Glucophage 500 MG] 250 mg PO HS Famotidine 40 mg PO BID Diphenhydramine HCl 25 mg [Benadryl 25 mg Capsule] 25 mg PO QHS Naproxen 375 mg [Naprosyn 375 mg] 375 mg PO BID Folic Acid 0.8 mg PO DAILY Furosemide [Lasix] 20 mg PO DAILY SUMAtriptan succinate [Imitrex 50 mg] 50 mg PO DAILY PRN PRN PRN Reason: Headache Levothyroxine Sodium 75 Mcg [Synthroid 75 Mcg] 75 mcg PO DAILY Acetaminophen 650 mg PO Q4H PRN PRN #30 tablet PRN Reason: Pain Rivaroxaban 10 mg Tablet [Xarelto 10 mg Tablet] 20 mg PO DAILY Metoprolol Tartrate 25 mg [Lopressor 25MG Tab] 12.5 mg PO DAILY Topiramate 25 mg [Topamax 25 MG] 50 mg PO BID Gabapentin 400 mg [Neurontin 400 MG] 400 mg PO BID Follow up with: Memo Ku MD [CONSULTING PHYSICIAN] - 1 Week (follow up with dr ku after stress test is completed) TIM MAGUIRE MD [Primary Care Provider] - 1 Week
[2018-12-09] MEDS ORDERED: Sodium Chloride 0.9% 10 ML FLUSH Syringe IV SCH (14:00)
== END 2018-12-09 08:35 | disposition home or self-care (01) ==
LOC: ED 13:16 → MED SURG 16:49
PROVIDERS: ADMIT General Practice; ATTEND General Practice
DX: R07.9 Chest pain, unspecified (principal); I10 Essential (primary) hypertension; E11.9 Type 2 diabetes mellitus without complications; I48.91 Unspecified atrial fibrillation; J44.9 Chronic obstructive pulmonary disease, unspecified; F41.8 Other specified anxiety disorders; Z87.09 Personal history of other diseases of the respiratory system; E78.00 Pure hypercholesterolemia, unspecified; D69.3 Immune thrombocytopenic purpura; G47.30 Sleep apnea, unspecified; E66.01 Morbid (severe) obesity due to excess calories; Z68.43 Body mass index [BMI] 50.0-59.9, adult; Z79.899 Other long term (current) drug therapy; Z79.01 Long term (current) use of anticoagulants
CPT/HCPCS: 36000; 36415; 71045; 80053; 80061; 82550; 82962; 83690; 83721; 83735; 83880; 84484; 85025; 85379; 85610; 85652; 85730; 86141; 93005; 93041; 93268; 93306; 94760; 96374; 96375; 99285; G0378; Q3014; J2270; J2405; A9270-GY

== ENCOUNTER 2019-03-20 13:21 | Emergency (ER) | payer SELFPAY ==
--- NOTE | 2019-03-20 13:28 | ERPHSYRPT ---
- History of Present Illness Time Seen by Provider: 03/20/19 13:28 Historian: patient, EMS Exam Limitations: no limitations Physician History: 38 y/o diabetic, mobidly obese white female with h/o cp, asthma, hypothyroidism , chf, itp, sleep apnea and migraine headaches and strong family h/o cardiac dz presents with substernal central cp for 3 days. pts pain radiates to both shoulders. pt is allergic to aspirin. no sig soa Timing/Duration: day(s) (3) Activities at Onset: none Quality: aching Location: substernal, central Chest Pain Radiation: arm (bilat shoulders) Severity of Pain-Max: mild Severity of Pain-Current: mild Modifying Factors: Improves With: nothing Associated Symptoms: denies symptoms Prior Chest Pain/Cardiac Workup: angina Aspirin Treatment Today: no aspirin today Allergies/Adverse Reactions: Sulfa (Sulfonamide Antibiotics) [Sulfa(Sulfonamide Antibiotics)] Allergy (Mild, Verified 12/07/18 20:53) Rash rash aspirin Adverse Reaction (Severe, Verified 12/07/18 20:53) advised not to take it d/t it will cause her to bleed Home Medications: Metformin HCl 500 mg [Glucophage 500 MG] 500 mg PO DAILY 07/14/14 [History ] Citalopram Hydrobromide 20 mg* [ceLEXa 20 MG] 20 mg PO DAILY 07/24/14 [ History] Lorazepam 0.5 mg [Ativan 0.5 MG] 0.5 mg PO TID 07/02/15 [History] Montelukast Sodium [Singulair] 10 mg PO DAILY 07/02/15 [History] Sitagliptin Phosphate [Januvia] 100 mg PO DAILY 07/08/15 [History] Famotidine 40 mg PO BID 03/09/16 [History] Metformin HCl 500 mg [Glucophage 500 MG] 250 mg PO HS 03/09/16 [History] Diphenhydramine HCl 25 mg [Benadryl 25 mg Capsule] 25 mg PO QHS 05/28/16 [ History] Folic Acid 0.8 mg PO DAILY 08/16/16 [History] Naproxen 375 mg [Naprosyn 375 mg] 375 mg PO BID 08/16/16 [History] Furosemide [Lasix] 20 mg PO DAILY 09/15/16 [History] SUMAtriptan succinate [Imitrex 50 mg] 50 mg PO DAILY PRN PRN 09/15/16 [History] Levothyroxine Sodium 75 Mcg [Synthroid 75 Mcg] 75 mcg PO DAILY 11/04/16 [ History] Metoprolol Tartrate 25 mg [Lopressor 25MG Tab] 12.5 mg PO DAILY 08/28/17 [ History] Rivaroxaban 10 mg Tablet [Xarelto 10 mg Tablet] 20 mg PO DAILY 08/28/17 [ History] Topiramate 25 mg [Topamax 25 MG] 50 mg PO BID 10/14/17 [History] Gabapentin 400 mg [Neurontin 400 MG] 400 mg PO BID 12/07/18 [History] Hx Tetanus, Diphtheria Vaccination/Date Given: Yes Hx Influenza Vaccination/Date Given: Yes Hx Pneumococcal Vaccination/Date Given: Yes - Review of Systems Constitutional: No Symptoms Eyes: No Symptoms Ears, Nose, & Throat: No Symptoms Respiratory: No Symptoms Cardiac: Chest Pain Abdominal/Gastrointestinal: No Symptoms Genitourinary Symptoms: No Symptoms Musculoskeletal: Joint Pain (bilat shoulders) Skin: No Symptoms Neurological: No Symptoms Psychological: No Symptoms Endocrine: No Symptoms Hematologic/Lymphatic: No Symptoms Immunological/Allergic: No Symptoms All Other Systems: Reviewed and Negative - Past Medical History Pertinent Past Medical History: Yes Neurological History: No Pertinent History ENT History: No Pertinent History Cardiac History: Congestive Heart Failure, High Cholesterol, Other Respiratory History: Asthma Endocrine Medical History: Diabetes Type II Musculoskeletal History: No Pertinent History GI Medical History: GERD History: No Pertinent History Psycho-Social History: Anxiety, Depression Female Reproductive Disorders: Fibroids Other Medical History: patient states she has ITP, sleep apnea - Past Surgical History Past Surgical History: Yes Neuro Surgical History: No Pertinent History Cardiac: No Pertinent History Respiratory: No Pertinent History Gastrointestinal: No Pertinent History Genitourinary: No Pertinent History Musculoskeletal: Other Female Surgical History: No Pertinent History Other Surgical History: bunion to right foot - Social History Smoking Status: Never smoker Exposure to second hand smoke: No Alcohol Use: None Drug Use: none Patient Lives Alone: No Significant Family History: no pertinent family hx, heart disease, hypertension - Nursing Vital Signs Nursing Vital Signs: Initial Vital Signs Temperature 97.3 F 03/20/19 13:26 Pulse Rate 88 03/20/19 13:26 Respiratory Rate 20 03/20/19 13:26 Blood Pressure 120/67 03/20/19 13:26 O2 Sat by Pulse Oximetry 99 03/20/19 13:26 Pain Scale Pain Intensity 9 - Physical Exam General Appearance: no apparent distress, alert, anxiety Eye Exam: PERRL/EOMI, eyes nml inspection Ears, Nose, Throat Exam: normal ENT inspection, moist mucous membranes Neck Exam: normal inspection, non-tender, supple, full range of motion Respiratory Exam: normal breath sounds, chest tenderness, lungs clear, airway intact, No respiratory distress Cardiovascular Exam: regular rate/rhythm, normal heart sounds, normal peripheral pulses Gastrointestinal/Abdomen Exam: soft, normal bowel sounds, No tenderness Pelvic Exam: not done Rectal Exam: not done Back Exam: normal inspection, normal range of motion, No CVA tenderness, No vertebral tenderness Extremity Exam: normal inspection, normal range of motion, No pelvis stable Neurologic Exam: alert, 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, cooperative, j2ee developer II-XII nml as tested Skin Exam: normal color, warm, dry Lymphatic Exam: No adenopathy SpO2 Interpretation: normal - Course Nursing assessment & vital signs reviewed: Yes EKG Interpreted by Me: RATE (85), Sinus Rhythm, NORMAL AXIS, NORMAL INTERVALS, NORMAL QRS, Other (new nonspecific st segment changes. persistent left ant fasc block on comparison ekg 12/09/18) Ordered Tests: Active Orders 24 hr Category Date Time Status Telemarketing Fundraiser STAT Care 03/20/19 13:29 Active EKG-ER Only STAT Care 03/20/19 13:28 Active IV Insertion STAT Care 03/20/19 13:28 Active Pulse Oximetry (ED) STAT Care 03/20/19 13:28 Active CHEST 1 VIEW (PORTABLE) Stat Exams 03/20/19 13:28 Completed CBC W DIFF Stat Lab 03/20/19 13:41 Completed CMP Stat Lab 03/20/19 13:41 Completed D-DIMER QUANTITATION Stat Lab 03/20/19 13:41 Completed NT PRO BNP Stat Lab 03/20/19 13:41 Completed TROPONIN Q3H Lab 03/20/19 13:41 Completed TROPONIN Q3H Lab 03/20/19 16:30 Ordered TROPONIN Q3H Lab 03/20/19 19:30 Ordered TROPONIN Q3H Lab 03/20/19 22:30 Ordered TROPONIN Q3H Lab 03/21/19 01:30 Ordered Medication Summary Generic Name Dose Route Start Last Admin Trade Name Freq PRN Reason Stop Dose Admin Morphine Sulfate 4 mg 03/20/19 14:48 Morphine Sulfate 4 Mg Inj IV 03/20/19 14:49 STAT ONE Ondansetron HCl 4 mg 03/20/19 14:48 Zofran 4 Mg/2 Ml Vial IV 03/20/19 14:49 STAT ONE Lab/Rad Data: Laboratory Result Diagrams 03/20/19 13:41 03/20/19 13:41 Laboratory Results 03/20/19 03/20/19 03/20/19 Range/Units 13:41 13:41 13:41 WBC (4.0-10.5) K/mm3 RBC (4.1-5.4) M/mm3 Hgb (12.0-16.0) gm/dl Hct (35-47) % MCV (78-100) fl MCH (26-32) pg MCHC (32-36) g/dl RDW (11.5-14.0) % Plt Count (150-450) K/mm3 MPV (6-9.5) fl Gran % (36.0-66.0) % Eos # (Auto) (0-0.5) Absolute Lymphs (auto) (1.0-4.6) Absolute Monos (auto) (0.0-1.3) Lymphocytes % (24.0-44.0) % Monocytes % (0.0-12.0) % Eosinophils % (0.00-5.0) % Basophils % (0.0-0.4) % Absolute Granulocytes (1.4-6.9) Basophils # (0-0.4) D-Dimer 330 (215-500) ng/mL Sodium 142 (137-145) mmol/L Potassium 4.1 (3.5-5.1) mmol/L Chloride 107 (98-107) mmol/L Carbon Dioxide 25 (22-30) mmol/L Anion Gap 14.2 (5-15) MEQ/L BUN 18 H (7-17) mg/dL Creatinine 0.71 (0.52-1.04) mg/dL Estimated GFR > 60.0 ML/MIN Glucose 158 H (74-106) mg/dL Calcium 9.2 (8.4-10.2) mg/dL Total Bilirubin 0.30 (0.2-1.3) mg/dL AST 19 (14-36) U/L ALT 26 (0-35) U/L Alkaline Phosphatase 92 (38-126) U/L Troponin I < 0.012 (0.000-0.034) ng/mL NT-Pro-B Natriuret Pep 171 (0-450) pg/mL Serum Total Protein 7.0 (6.3-8.2) g/dL Albumin 3.8 (3.5-5.0) g/dL 03/20/19 Range/Units 13:41 WBC 8.2 (4.0-10.5) K/mm3 RBC 3.70 L (4.1-5.4) M/mm3 Hgb 9.6 L (12.0-16.0) gm/dl Hct 31.0 L (35-47) % MCV 83.8 (78-100) fl MCH 25.9 L (26-32) pg MCHC 31.0 L (32-36) g/dl RDW 15.8 H (11.5-14.0) % Plt Count 275 (150-450) K/mm3 MPV 9.9 H (6-9.5) fl Gran % 72.7 H (36.0-66.0) % Eos # (Auto) 0.12 (0-0.5) Absolute Lymphs (auto) 1.53 (1.0-4.6) Absolute Monos (auto) 0.56 (0.0-1.3) Lymphocytes % 18.6 L (24.0-44.0) % Monocytes % 6.8 (0.0-12.0) % Eosinophils % 1.5 (0.00-5.0) % Basophils % 0.4 (0.0-0.4) % Absolute Granulocytes 5.98 (1.4-6.9) Basophils # 0.03 (0-0.4) D-Dimer (215-500) ng/mL Sodium (137-145) mmol/L Potassium (3.5-5.1) mmol/L Chloride (98-107) mmol/L Carbon Dioxide (22-30) mmol/L Anion Gap (5-15) MEQ/L BUN (7-17) mg/dL Creatinine (0.52-1.04) mg/dL Estimated GFR ML/MIN Glucose (74-106) mg/dL Calcium (8.4-10.2) mg/dL Total Bilirubin (0.2-1.3) mg/dL AST (14-36) U/L ALT (0-35) U/L Alkaline Phosphatase (38-126) U/L Troponin I (0.000-0.034) ng/mL NT-Pro-B Natriuret Pep (0-450) pg/mL Serum Total Protein (6.3-8.2) g/dL Albumin (3.5-5.0) g/dL - Progress Progress: improved Air Movement: good Progress Note: 03/20/19 14:58 cxr-no acute process Blood Culture(s) Obtained: No Antibiotics given: No Counseled pt/family regarding: lab results, diagnosis, need for follow-up, rad results - Departure Departure Disposition: Home Clinical Impression: Chest pain, Bilateral shoulder pain Condition: Stable Critical Care Time: No Referrals: TIM MAGUIRE MD [Primary Care Provider] -
[2019-03-20 13:50] LABS: Absolute Neutrophil Ct (ANC) 5.98 (1.4-6.9); BASOPHIL % 0.4 % (0.0-0.4); Basophil (Absolute #) 0.03 (0-0.4); Eosinophil % 1.5 % (0.00-5.0); Eosinophil (Absolute #) 0.12 (0-0.5); Hemoglobin 9.6 gm/dl (12.0-16.0); Lymphocyte (Absolute #) 1.53 (1.0-4.6); Lymphocytes % 18.6 % (24.0-44.0); Mean Cell Volume 83.8 fl (78-100); Mean Corpuscular Hemoglobin 25.9 pg (26-32); Mean Platelet Volume 9.9 fl (6-9.5); Monocyte (Absolute #) 0.56 (0.0-1.3); Monocytes % 6.8 % (0.0-12.0); Neutrophil % 72.7 % (36.0-66.0); Platelet Count 275 K/mm3 (150-450); Red Cell Distribution Width 15.8 % (11.5-14.0); White Blood Count 8.2 K/mm3 (4.0-10.5)
--- NOTE | 2019-03-20 13:59 | XRAY ---
Indication: Left chest and left arm pain. Comparison: December 07, 2018. Portable apical lordotic chest demonstrates normal heart, lungs, and bony thorax.
[2019-03-20 14:05] LABS: ALBUMIN 3.8 g/dL (3.5-5.0); ALKALINE PHOSPHATASE 92 U/L (38-126); ANION GAP 14.2 MEQ/L (5-15); BLOOD UREA NITROGEN 18 mg/dL (7-17); CHLORIDE 107 mmol/L (98-107); Calcium 9.2 mg/dL (8.4-10.2); Carbon Dioxide 25 mmol/L (22-30); Creatinine 1 0.71 mg/dL (0.52-1.04); Glucose 158 mg/dL (74-106); NT PRO BNP 171 pg/mL (0-450); Potassium 4.1 mmol/L (3.5-5.1); SGOT/AST 19 U/L (14-36); SGPT/ALT 26 U/L (0-35); SODIUM 142 mmol/L (137-145)
[2019-03-20] MEDS ORDERED: Zofran 4 MG/2 ML VIAL IV ONE (14:48)
[2019-03-20] MEDS ORDERED: MORPHINE SULFATE 4 MG INJ IV ONE (14:48)
[2019-03-20 15:29] VITALS: BP 112/73; PULSE 73; O2SAT 98
[2019-03-20] MEDS ORDERED: Zofran 4 MG/2 ML VIAL ONE (15:29)
[2019-03-20] MEDS ORDERED: MORPHINE SULFATE 4 MG INJ ONE (15:30)
== END 2019-03-20 16:03 | disposition home or self-care (01) ==
LOC: ED 13:21
DX: R07.89 Other chest pain (principal); M25.512 Pain in left shoulder; M25.511 Pain in right shoulder; Z79.899 Other long term (current) drug therapy; E03.9 Hypothyroidism, unspecified; E11.9 Type 2 diabetes mellitus without complications; I50.9 Heart failure, unspecified; D69.3 Immune thrombocytopenic purpura; G47.30 Sleep apnea, unspecified; J45.909 Unspecified asthma, uncomplicated; Z79.4 Long term (current) use of insulin; Z79.84 Long term (current) use of oral hypoglycemic drugs; E78.00 Pure hypercholesterolemia, unspecified
CPT/HCPCS: 36000; 36415; 71045; 80053; 83880; 84484; 85025; 85379; 93005; 93041; 94760; 96374; 96375; 99284; J2270; J2405

== ENCOUNTER 2019-04-25 13:58 | Emergency (ER) | payer SELFPAY ==
[2019-04-25] MEDS ORDERED: DUONEB 0.5-3 MG/3 ml Neb IH ONE ×3 (14:00→14:13)
[2019-04-25] MEDS ORDERED: Sodium Chloride 0.9% 1000 ML 1,000 ML IV STA (14:00)
--- NOTE | 2019-04-25 14:18 | ERPHSYRPT ---
- History of Present Illness Time Seen by Provider: 04/25/19 14:00 Source: patient Exam Limitations: no limitations Patient Subjective Stated Complaint: PT states "I was walking to work around 1 pm and I started to have an asthma attack. I have been out of my breathing meds for a week and I started coughing and just had a hard time stopping. I feel much better now." Triage Nursing Assessment: Pt presented via scat and placed in room 5. Pt alert and oriented X 3, skin pwd. PT able to speak in clear full sentences. Pt in no apparent respiratory distress. at this time. Physician History: Sudden onset of shortness of breath and wheezing going out into the cold air. Patient has been out of as the medications for one week. She called EMS, who gave her 125 mg of IV Solu-Medrol and 1 do no therapy which helped her symptoms improved significantly. The patient had some chest pain and tightness with the coughing. Timing/Duration: hour(s) (1), sudden, improved Activities at Onset: other (cold air) Severity of Dyspnea-Max: severe Severity of Dyspnea-Current: none Possible Cause: occasional episodes Modifying Factors: Improves With: albuterol nebulizer. Worsens With: coughing, deep breath, exertion, other (cold air) Associated Symptoms: intermittent, cough, chest pain/discomfort, wheezing, painful breathing, tightness, No edema, No fever, No insomnia, No loss of appetite, No lightheadedness, No weakness, No ankle swelling, No chills, No hemoptysis, No calf pain, No dizziness, No heaviness, No heart racing, No lightheadedness, No leg swelling, No muscle spasms feet, No muscle spasms hands , No productive cough, No sweating, No tingling face, No tingling hands International travel in last 2 weeks: No Allergies/Adverse Reactions: Sulfa (Sulfonamide Antibiotics) [Sulfa(Sulfonamide Antibiotics)] Allergy (Mild, Verified 12/07/18 20:53) Rash rash aspirin Adverse Reaction (Severe, Verified 12/07/18 20:53) advised not to take it d/t it will cause her to bleed Home Medications: Metformin HCl 500 mg [Glucophage 500 MG] 500 mg PO DAILY 07/14/14 [History ] Citalopram Hydrobromide 20 mg* [ceLEXa 20 MG] 20 mg PO DAILY 07/24/14 [ History] Lorazepam 0.5 mg [Ativan 0.5 MG] 0.5 mg PO TID 07/02/15 [History] Montelukast Sodium [Singulair] 10 mg PO DAILY 07/02/15 [History] Sitagliptin Phosphate [Januvia] 100 mg PO DAILY 07/08/15 [History] Famotidine 40 mg PO BID 03/09/16 [History] Metformin HCl 500 mg [Glucophage 500 MG] 250 mg PO HS 03/09/16 [History] Diphenhydramine HCl 25 mg [Benadryl 25 mg Capsule] 25 mg PO QHS 05/28/16 [ History] Folic Acid 0.8 mg PO DAILY 08/16/16 [History] Naproxen 375 mg [Naprosyn 375 mg] 375 mg PO BID 08/16/16 [History] Furosemide [Lasix] 20 mg PO DAILY 09/15/16 [History] SUMAtriptan succinate [Imitrex 50 mg] 50 mg PO DAILY PRN PRN 09/15/16 [History] Levothyroxine Sodium 75 Mcg [Synthroid 75 Mcg] 75 mcg PO DAILY 11/04/16 [ History] Metoprolol Tartrate 25 mg [Lopressor 25MG Tab] 12.5 mg PO DAILY 08/28/17 [ History] Rivaroxaban 10 mg Tablet [Xarelto 10 mg Tablet] 20 mg PO DAILY 08/28/17 [ History] Topiramate 25 mg [Topamax 25 MG] 50 mg PO BID 10/14/17 [History] Gabapentin 400 mg [Neurontin 400 MG] 400 mg PO BID 12/07/18 [History] Hx Tetanus, Diphtheria Vaccination/Date Given: Yes Hx Influenza Vaccination/Date Given: Yes Hx Pneumococcal Vaccination/Date Given: Yes Immunizations Up to Date: Yes - Review of Systems Constitutional: No Fever, No Chills, No Fatigue Eyes: No Eye Pain, No Tearing, No Vision Changes Ears, Nose, & Throat: No Nose Congestion, No Nose Discharge, No Throat Pain, No Throat Swelling, No Hoarse Respiratory: Cough, Dyspnea, Dyspnea on Exertion (MONZON) Cardiac: Chest Pain, No Palpitations Abdominal/Gastrointestinal: No Abdominal Pain, No Hematochezia, No Melena Genitourinary Symptoms: No Dysuria, No Frequency, No Hematuria, No Flank Pain Musculoskeletal: No Back Pain, No Neck Pain Skin: No Pruritis, No Rash Neurological: No Focal Weakness, No Headache, No Lethargy, No Parasthesia, No Tremors Psychological: No Anxiety Endocrine: No Excessive Sweating Hematologic/Lymphatic: No Easy Bleeding, No Easy Bruising All Other Systems: Reviewed and Negative - Past Medical History Pertinent Past Medical History: Yes Neurological History: No Pertinent History ENT History: No Pertinent History Cardiac History: Congestive Heart Failure, High Cholesterol, Other Respiratory History: Asthma Endocrine Medical History: Diabetes Type II Musculoskeletal History: No Pertinent History GI Medical History: GERD History: No Pertinent History Psycho-Social History: Anxiety, Depression Female Reproductive Disorders: Fibroids Other Medical History: patient states she has ITP, sleep apnea - Past Surgical History Past Surgical History: Yes Neuro Surgical History: No Pertinent History Cardiac: No Pertinent History Respiratory: No Pertinent History Gastrointestinal: No Pertinent History Genitourinary: No Pertinent History Musculoskeletal: Other Female Surgical History: No Pertinent History Other Surgical History: bunion to right foot - Social History Smoking Status: Never smoker Exposure to second hand smoke: Yes Alcohol Use: None Drug Use: none Patient Lives Alone: No Significant Family History: no pertinent family hx, heart disease, hypertension - Female History Hx Last Menstrual Period: now Hx Now: No - Nursing Vital Signs Nursing Vital Signs: Initial Vital Signs Temperature 99.4 F 04/25/19 14:03 Pulse Rate 91 H 04/25/19 14:03 Respiratory Rate 20 04/25/19 14:03 Blood Pressure 130/78 04/25/19 14:03 O2 Sat by Pulse Oximetry 97 04/25/19 14:03 Pain Scale Pain Intensity 0 - Physical Exam General Appearance: no apparent distress, alert Eye Exam: PERRL/EOMI, eyes nml inspection, No scleral icterus, No pale conjunctivae Ears, Nose, Throat Exam: hearing grossly normal, normal ENT inspection, normal pharynx, No sinus pain/drainage, No nasal congestion, No pharyngeal erythema, No tonsillar exudate Neck Exam: normal inspection, non-tender, No Brudzinski, No JVD, No lymphadenopathy (R), No lymphadenopathy (L) Respiratory Exam: lungs clear, airway intact, diminished breath sounds, No chest tenderness, No respiratory distress, No accessory muscle use, No crackles/ rales, No rhonchi, No wheezing, No stridor, No pleural rub Cardiovascular/Chest Exam: normal heart sounds, regular rate/rhythm, normal peripheral pulses, No murmur, No edema, No JVD Abdominal/Gastrointestinal Exam: soft, normal bowel sounds, No tenderness, No distention, No guarding, No rebound Extremity Exam: non-tender, normal range of motion, normal inspection, no calf tenderness, no pedal edema, No calf tenderness, No pedal edema, No swelling Neurologic Exam: alert, 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, cooperative, 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, normal mood/affect, sensation nml, No motor deficits Skin Exam: normal color, warm, dry, No rash, No petechiae, No cyanosis SpO2 Interpretation: normal SpO2: 97 O2 Delivery: Room Air - Course Nursing assessment & vital signs reviewed: Yes EKG Interpreted by Me: RATE, Sinus Rhythm, LAFB, NORMAL INTERVALS, NORMAL QRS, NORMAL ST-T, Other (no change from previous EKG from 03/20/2019) - Radiology Exams Chest X-ray Interpretation: Interpreted by me, Reviewed by me, Negative, No Fracture, No Pneumonia, No Pneumothorax, No Infiltrates, Nml Mediastinum, Other ( confirmed by Radiologist interpretation) Ordered Tests: Active Orders 24 hr Category Date Time Status Merchandising Director STAT Care 04/25/19 14:02 Active EKG-ER Only STAT Care 04/25/19 14:00 Active Pulse Oximetry (ED) STAT Care 04/25/19 14:00 Active CHEST 1 VIEW (PORTABLE) Stat Exams 04/25/19 14:01 Completed CBC W DIFF Stat Lab 04/25/19 14:40 Completed CMP Stat Lab 04/25/19 16:35 Completed CULTURE,URINE Stat Lab 04/25/19 14:38 Received D-DIMER QUANTITATION Stat Lab 04/25/19 14:40 Completed Lactic Acid Stat Lab 04/25/19 14:35 Completed MAGNESIUM Stat Lab 04/25/19 14:40 Completed NT PRO BNP Stat Lab 04/25/19 14:40 Completed PROTIME WITH INR Stat Lab 04/25/19 14:40 Completed PTT Stat Lab 04/25/19 14:40 Completed TROPONIN Q3H Lab 04/25/19 14:40 Completed TROPONIN Q3H Lab 04/25/19 17:15 Ordered TROPONIN Q3H Lab 04/25/19 20:15 Ordered TROPONIN Q3H Lab 04/25/19 23:15 Ordered TROPONIN Q3H Lab 04/26/19 02:15 Ordered UA W/RFX UR CULTURE Stat Lab 04/25/19 14:38 Completed VENOUS BLOOD GAS Stat Lab 04/25/19 14:35 Completed Peak Expiratory Flow Rate ONCE RT 04/25/19 14:21 Active Respiratory Therapy Assessment DAILY RT 04/25/19 14:20 Active Medication Summary Discontinued Medications Generic Name Dose Route Start Last Admin Trade Name Freq PRN Reason Stop Dose Admin Albuterol/Ipratropium 6 ml 04/25/19 14:00 04/25/19 14:12 Duoneb 0.5-3 Mg/3 Ml Neb IH 04/25/19 14:01 6 ml STAT ONE Administration Albuterol/Ipratropium Confirm 04/25/19 14:09 Duoneb 0.5-3 Mg/3 Ml Neb Administered 04/25/19 14:10 Dose 3 ml IH .STK-MED ONE Albuterol/Ipratropium Confirm 04/25/19 14:13 Duoneb 0.5-3 Mg/3 Ml Neb Administered 04/25/19 14:14 Dose 3 ml IH .STK-MED ONE Sodium Chloride 1,000 mls @ 999 mls/hr 04/25/19 14:00 04/25/19 15:51 Sodium Chloride 0.9% 1000 Ml IV 04/25/19 15:00 Infused .Q1H1M STA Infusion Sodium Chloride Confirm 04/25/19 14:39 Sodium Chloride 0.9% 1000 Ml Administered 04/25/19 14:40 Dose 1,000 mls @ ud .ROUTE .STK-MED ONE Methylprednisolone Sodium Succinate 125 mg 04/25/19 16:47 04/25/19 16:56 Solu-Medrol 125 Mg IV 04/25/19 16:48 125 mg STAT ONE Administration Methylprednisolone Sodium Succinate Confirm 04/25/19 16:48 Solu-Medrol 125 Mg Administered 04/25/19 16:49 Dose 125 mg .ROUTE .STK-MED ONE Morphine Sulfate 4 mg 04/25/19 15:07 04/25/19 15:15 Morphine Sulfate 4 Mg Inj IV 04/25/19 15:08 4 mg STAT ONE Administration Morphine Sulfate Confirm 04/25/19 15:14 Morphine Sulfate 4 Mg Inj Administered 04/25/19 15:15 Dose 4 mg .ROUTE .STK-MED ONE Lab/Rad Data: Laboratory Result Diagrams 04/25/19 14:40 04/25/19 16:35 Laboratory Results 04/25/19 04/25/19 04/25/19 Range/Units 16:35 14:40 14:40 WBC (4.0-10.5) K/mm3 RBC (4.1-5.4) M/mm3 Hgb (12.0-16.0) gm/dl Hct (35-47) % MCV (78-100) fl MCH (26-32) pg MCHC (32-36) g/dl RDW (11.5-14.0) % Plt Count (150-450) K/mm3 MPV (6-9.5) fl Gran % (36.0-66.0) % Eos # (Auto) (0-0.5) Absolute Lymphs (auto) (1.0-4.6) Absolute Monos (auto) (0.0-1.3) Lymphocytes % (24.0-44.0) % Monocytes % (0.0-12.0) % Eosinophils % (0.00-5.0) % Basophils % (0.0-0.4) % Absolute Granulocytes (1.4-6.9) Basophils # (0-0.4) PT 12.2 (9.95-12.35) SECONDS INR 1.08 (0.8-3.0) APTT 31.6 (25.3-37.0) SECONDS D-Dimer 351 (215-500) ng/mL pO2/FiO2 Ratio % VBG pH (7.32-7.42) VBG pCO2 at Pat Temp (42-55) mm/Hg VBG pO2 at Pat Temp (25-40) mm/Hg VBG HCO3 (22-28) meq/L VBG O2 Sat (Stephie) (95-100) VBG Base Excess (-2.0-2.0) VBG Hemoglobin VBG Carboxyhemoglobin (0.0-6.9) % T HGB POC Potassium (3.5-5.1) Sodium 143 (137-145) mmol/L Potassium 4.0 (3.5-5.1) mmol/L Chloride 108 H (98-107) mmol/L Carbon Dioxide 25 (22-30) mmol/L Anion Gap 13.9 (5-15) MEQ/L BUN 21 H (7-17) mg/dL Creatinine 0.63 (0.52-1.04) mg/dL Estimated GFR > 60.0 ML/MIN Glucose 155 H (74-106) mg/dL Lactic Acid (0.4-2.0) Calcium 9.1 (8.4-10.2) mg/dL Magnesium (1.6-2.3) mg/dL Total Bilirubin 0.30 (0.2-1.3) mg/dL AST 23 (14-36) U/L ALT 26 (0-35) U/L Alkaline Phosphatase 99 (38-126) U/L Troponin I < 0.012 (0.000-0.034) ng/mL NT-Pro-B Natriuret Pep (0-450) pg/mL Serum Total Protein 7.3 (6.3-8.2) g/dL Albumin 3.9 (3.5-5.0) g/dL Urine Color (YELLOW) Urine Appearance (CLEAR) Urine pH (5-6) Ur Specific [place] (1.005-1.025) Urine Protein (Negative) Urine Ketones (NEGATIVE) Urine Blood (0-5) Chago/ul Urine Nitrite (NEGATIVE) Urine Bilirubin (NEGATIVE) Urine Urobilinogen (0-1) mg/dL Ur Leukocyte Esterase (NEGATIVE) Urine WBC (Auto) (0-5) /HPF Urine RBC (Auto) (0-2) /HPF U Epithel Cells (Auto) (FEW) /HPF Urine Bacteria (Auto) (NEGATIVE) /HPF Urine Mucus (Auto) (NEGATIVE) /HPF Urine Culture Reflexed (NO) Urine Glucose (NEGATIVE) mg/dL 04/25/19 04/25/19 04/25/19 Range/Units 14:40 14:40 14:38 WBC 7.1 (4.0-10.5) K/mm3 RBC 3.66 L (4.1-5.4) M/mm3 Hgb 9.5 L (12.0-16.0) gm/dl Hct 30.7 L (35-47) % MCV 83.9 (78-100) fl MCH 25.9 L (26-32) pg MCHC 30.9 L (32-36) g/dl RDW 15.4 H (11.5-14.0) % Plt Count 308 (150-450) K/mm3 MPV 9.3 (6-9.5) fl Gran % 72.5 H (36.0-66.0) % Eos # (Auto) 0.09 (0-0.5) Absolute Lymphs (auto) 1.54 (1.0-4.6) Absolute Monos (auto) 0.29 (0.0-1.3) Lymphocytes % 21.7 L (24.0-44.0) % Monocytes % 4.1 (0.0-12.0) % Eosinophils % 1.3 (0.00-5.0) % Basophils % 0.4 (0.0-0.4) % Absolute Granulocytes 5.16 (1.4-6.9) Basophils # 0.03 (0-0.4) PT (9.95-12.35) SECONDS INR (0.8-3.0) APTT (25.3-37.0) SECONDS D-Dimer (215-500) ng/mL pO2/FiO2 Ratio % VBG pH (7.32-7.42) VBG pCO2 at Pat Temp (42-55) mm/Hg VBG pO2 at Pat Temp (25-40) mm/Hg VBG HCO3 (22-28) meq/L VBG O2 Sat (Stephie) (95-100) VBG Base Excess (-2.0-2.0) VBG Hemoglobin VBG Carboxyhemoglobin (0.0-6.9) % T HGB POC Potassium (3.5-5.1) Sodium (137-145) mmol/L Potassium (3.5-5.1) mmol/L Chloride (98-107) mmol/L Carbon Dioxide (22-30) mmol/L Anion Gap (5-15) MEQ/L BUN (7-17) mg/dL Creatinine (0.52-1.04) mg/dL Estimated GFR ML/MIN Glucose (74-106) mg/dL Lactic Acid (0.4-2.0) Calcium (8.4-10.2) mg/dL Magnesium 1.7 (1.6-2.3) mg/dL Total Bilirubin (0.2-1.3) mg/dL AST (14-36) U/L ALT (0-35) U/L Alkaline Phosphatase (38-126) U/L Troponin I (0.000-0.034) ng/mL NT-Pro-B Natriuret Pep 263 (0-450) pg/mL Serum Total Protein (6.3-8.2) g/dL Albumin (3.5-5.0) g/dL Urine Color YELLOW (YELLOW) Urine Appearance CLEAR (CLEAR) Urine pH 6.0 (5-6) Ur Specific [place] 1.017 (1.005-1.025) Urine Protein 100 (Negative) Urine Ketones NEGATIVE (NEGATIVE) Urine Blood MODERATE (0-5) Chago/ul Urine Nitrite NEGATIVE (NEGATIVE) Urine Bilirubin NEGATIVE (NEGATIVE) Urine Urobilinogen NEGATIVE (0-1) mg/dL Ur Leukocyte Esterase NEGATIVE (NEGATIVE) Urine WBC (Auto) NONE (0-5) /HPF Urine RBC (Auto) 3-5 (0-2) /HPF U Epithel Cells (Auto) RARE (FEW) /HPF Urine Bacteria (Auto) RARE (NEGATIVE) /HPF Urine Mucus (Auto) SLIGHT (NEGATIVE) /HPF Urine Culture Reflexed YES (NO) Urine Glucose NEGATIVE (NEGATIVE) mg/dL 04/25/19 Range/Units 14:35 WBC (4.0-10.5) K/mm3 RBC (4.1-5.4) M/mm3 Hgb (12.0-16.0) gm/dl Hct (35-47) % MCV (78-100) fl MCH (26-32) pg MCHC (32-36) g/dl RDW (11.5-14.0) % Plt Count (150-450) K/mm3 MPV (6-9.5) fl Gran % (36.0-66.0) % Eos # (Auto) (0-0.5) Absolute Lymphs (auto) (1.0-4.6) Absolute Monos (auto) (0.0-1.3) Lymphocytes % (24.0-44.0) % Monocytes % (0.0-12.0) % Eosinophils % (0.00-5.0) % Basophils % (0.0-0.4) % Absolute Granulocytes (1.4-6.9) Basophils # (0-0.4) PT (9.95-12.35) SECONDS INR (0.8-3.0) APTT (25.3-37.0) SECONDS D-Dimer (215-500) ng/mL pO2/FiO2 Ratio 21.0 % VBG pH 7.43 H (7.32-7.42) VBG pCO2 at Pat Temp 40 L (42-55) mm/Hg VBG pO2 at Pat Temp 42 H (25-40) mm/Hg VBG HCO3 26.5 (22-28) meq/L VBG O2 Sat (Stephie) 82.0 L (95-100) VBG Base Excess 2.0 (-2.0-2.0) VBG Hemoglobin 9.7 VBG Carboxyhemoglobin 2.4 (0.0-6.9) % T HGB POC Potassium 3.8 (3.5-5.1) Sodium (137-145) mmol/L Potassium (3.5-5.1) mmol/L Chloride (98-107) mmol/L Carbon Dioxide (22-30) mmol/L Anion Gap (5-15) MEQ/L BUN (7-17) mg/dL Creatinine (0.52-1.04) mg/dL Estimated GFR ML/MIN Glucose (74-106) mg/dL Lactic Acid 1.6 (0.4-2.0) Calcium (8.4-10.2) mg/dL Magnesium (1.6-2.3) mg/dL Total Bilirubin (0.2-1.3) mg/dL AST (14-36) U/L ALT (0-35) U/L Alkaline Phosphatase (38-126) U/L Troponin I (0.000-0.034) ng/mL NT-Pro-B Natriuret Pep (0-450) pg/mL Serum Total Protein (6.3-8.2) g/dL Albumin (3.5-5.0) g/dL Urine Color (YELLOW) Urine Appearance (CLEAR) Urine pH (5-6) Ur Specific [place] (1.005-1.025) Urine Protein (Negative) Urine Ketones (NEGATIVE) Urine Blood (0-5) Chago/ul Urine Nitrite (NEGATIVE) Urine Bilirubin (NEGATIVE) Urine Urobilinogen (0-1) mg/dL Ur Leukocyte Esterase (NEGATIVE) Urine WBC (Auto) (0-5) /HPF Urine RBC (Auto) (0-2) /HPF U Epithel Cells (Auto) (FEW) /HPF Urine Bacteria (Auto) (NEGATIVE) /HPF Urine Mucus (Auto) (NEGATIVE) /HPF Urine Culture Reflexed (NO) Urine Glucose (NEGATIVE) mg/dL - Progress Progress: re-examined Air Movement: good Progress Note: 04/25/19 16:31 the patient is feeling much better then when she came into the emergency department. patient is in no type of respiratory distress, no tachypnea, and clear to auscultation with improved airflow throughout all lung cooley. patient has remained in sinus rhythm throughout her time in the emergency department on the air sampling and monitoring with no signs of ectopy, arrhythmia, ischemia , injury or infarction. PERC for PE with negative range D-Dimer, low probability for pulmonary embolus causing her symptoms, no need for CT of the chest this time HEART score: 1 with negative Troponin, low risk, 0.9%-1.6% risk for MACE in the next 6 weeks Blood Culture(s) Obtained: No Antibiotics given: No Counseled pt/family regarding: lab results, diagnosis, need for follow-up, rad results - Departure Departure Disposition: Home Clinical Impression: Elevated blood pressure reading without diagnosis of hypertension, Chronic anemia Acute asthma exacerbation Qualifiers: Asthma severity: mild Asthma persistence: intermittent Qualified Code(s): J45.21 - Mild intermittent asthma with (acute) exacerbation Dyspnea Qualifiers: Dyspnea type: unspecified Qualified Code(s): R06.00 - Dyspnea, unspecified Condition: Good Critical Care Time: No Referrals: TIM MAGUIRE MD [Primary Care Provider] - 04/27/19 Instructions: Asthma, Adult (DC), Shortness of Breath (Dyspnea) (DC), DASH Diet , Normocytic Normochromic Anemia (DC) Additional Instructions: Your lab and chest x-ray results did not show any significant abnormalities that required you to stay in the hospital, and your shortness of breath most likely was from a acute asthma exacerbation. Return immediately back to the emergency room if any worsening shortness of breath, any chest pain, chest tightness, new fever, new wheezing, or any other concerning signs or symptoms that were not present at today's emergency department visit for immediate reevaluation in the emergency department. Forms: Work/School Release Form Prescriptions: Albuterol Sulfate [Proair Hfa] 8.5 gm IH Q4H PRN PRN #1 [email or web address] PRN Reason: Wheezing/Chest Congestion Albuterol/Ipratropium 3ml Neb* [DUONEB 0.5-3 MG/3 ml Neb] 3 ml NEBULIZE Q4H PRN PRN #1 box PRN Reason: Wheezing/Chest Congestion Prednisone 20 mg [Deltasone 20 mg] 60 mg PO DAILY #9 tablet
--- NOTE | 2019-04-25 14:30 | XRAY ---
Indication: Asthma. Comparison: March 20, 2019. Portable chest again demonstrates normal heart, lungs, and bony thorax.
[2019-04-25] MEDS ORDERED: Sodium Chloride 0.9% 1000 ML 1,000 ML ONE (14:39)
[2019-04-25 14:42] LABS: Lactic Acid 1.6 (0.4-2.0); VBG CARBOXYHEMOGLOBIN 2.4 % T HGB (0.0-6.9); VBG HCO3- 26.5 meq/L (22-28); VBG HEMOGLOBIN 9.7; VBG POTASSIUM 3.8 (3.5-5.1); VBG pH 7.43 (7.32-7.42)
[2019-04-25 14:48] LABS: Absolute Neutrophil Ct (ANC) 5.16 (1.4-6.9); BASOPHIL % 0.4 % (0.0-0.4); Basophil (Absolute #) 0.03 (0-0.4); Eosinophil % 1.3 % (0.00-5.0); Eosinophil (Absolute #) 0.09 (0-0.5); Hematocrit 30.7 % (35-47); Hemoglobin 9.5 gm/dl (12.0-16.0); Lymphocyte (Absolute #) 1.54 (1.0-4.6); Lymphocytes % 21.7 % (24.0-44.0); Mean Cell Volume 83.9 fl (78-100); Mean Corpuscular Hgb Concent. 30.9 g/dl (32-36); Mean Platelet Volume 9.3 fl (6-9.5); Monocyte (Absolute #) 0.29 (0.0-1.3); Monocytes % 4.1 % (0.0-12.0); Neutrophil % 72.5 % (36.0-66.0); Platelet Count 308 K/mm3 (150-450); Red Blood Count 3.66 M/mm3 (4.1-5.4); Red Cell Distribution Width 15.4 % (11.5-14.0); White Blood Count 7.1 K/mm3 (4.0-10.5)
[2019-04-25 14:50] LABS: Mean Corpuscular Hemoglobin 25.9 pg (26-32)
[2019-04-25 14:51] LABS: Appearance CLEAR (CLEAR); Bacteria RARE /HPF (NEGATIVE); Bilirubin NEGATIVE (NEGATIVE); Blood MODERATE Ery/ul (0-5); Epithelial Cells RARE /HPF (FEW); Glucose NEGATIVE (NEGATIVE); Ketones NEGATIVE (NEGATIVE); Leukocyte Esterase NEGATIVE (NEGATIVE); Mucus SLIGHT /HPF (NEGATIVE); Nitrite NEGATIVE (NEGATIVE); Protein,Urine Dip 100 (Negative); Specific Gravity 1.017 (1.005-1.025); Urobilinogen NEGATIVE mg/dL (0-1)
[2019-04-25 14:51] LABS: INR 1.08 (0.8-3.0); PROTIME 12.2 SECONDS (9.95-12.35)
[2019-04-25 14:54] LABS: PTT 31.6 SECONDS (25.3-37.0)
[2019-04-25 15:04] LABS: MAGNESIUM 1.7 mg/dL (1.6-2.3)
[2019-04-25] MEDS ORDERED: MORPHINE SULFATE 4 MG INJ IV ONE (15:07)
[2019-04-25] MEDS ORDERED: MORPHINE SULFATE 4 MG INJ ONE (15:14)
[2019-04-25] MEDS ORDERED: solu-MEDROL 125 MG IV ONE (16:47)
[2019-04-25] MEDS ORDERED: solu-MEDROL 125 MG ONE (16:48)
[2019-04-25 16:50] VITALS: BP 127/66
[2019-04-25 16:50] LABS: ALBUMIN 3.9 g/dL (3.5-5.0); ALKALINE PHOSPHATASE 99 U/L (38-126); ANION GAP 13.9 MEQ/L (5-15); BLOOD UREA NITROGEN 21 mg/dL (7-17); CHLORIDE 108 mmol/L (98-107); Calcium 9.1 mg/dL (8.4-10.2); Carbon Dioxide 25 mmol/L (22-30); Creatinine 1 0.63 mg/dL (0.52-1.04); Glucose 155 mg/dL (74-106); SGOT/AST 23 U/L (14-36); SGPT/ALT 26 U/L (0-35); SODIUM 143 mmol/L (137-145); Total Protein 7.3 g/dL (6.3-8.2)
[2019-04-25 17:05] VITALS: O2SAT 97
[2019-04-25 17:14] VITALS: PULSE 78
== END 2019-04-25 17:24 | disposition home or self-care (01) ==
LOC: ED 13:58
DX: J45.21 Mild intermittent asthma with (acute) exacerbation (principal); R03.0 Elevated blood-pressure reading, without diagnosis of hypertension; D64.89 Other specified anemias; R05 Cough; R07.9 Chest pain, unspecified; R06.00 Dyspnea, unspecified; I50.9 Heart failure, unspecified; E78.00 Pure hypercholesterolemia, unspecified; E11.9 Type 2 diabetes mellitus without complications; D69.3 Immune thrombocytopenic purpura
CPT/HCPCS: 36415; 71045; 80053; 81001; 82805; 83605; 83735; 83880; 84484; 85025; 85379; 85610; 85730; 87086; 93005; 93041; 94150; 94640; 94760; 96360; 96374; 96375; 99284; J2270; J2930; A9270-GY

== ENCOUNTER 2019-07-04 12:00 | Emergency (ER) | payer OTHER ==
[2019-07-04] MEDS ORDERED: Zofran 4 MG/2 ML VIAL IV ONE (12:44)
[2019-07-04] MEDS ORDERED: MORPHINE SULFATE 4 MG INJ IV ONE ×2 (12:44→14:09)
[2019-07-04] MEDS ORDERED: Sodium Chloride 0.9% 1000 ML 1,000 ML IV STA (12:44)
--- NOTE | 2019-07-04 12:51 | ERPHSYRPT ---
- History of Present Illness Time Seen by Provider: 07/04/19 12:26 Historian: patient Exam Limitations: no limitations Patient Subjective Stated Complaint: pt to ER with complaints of fever, cough ( since tuesday), vomiting and diarrhea since last night. pt states her temp this morning was 100 and took some tylenol. Triage Nursing Assessment: pt to ER with complaints of fever, vomiting and diarrhea since last night, cough since tuesday. Physician History: 38 yo presented with cc of flu like symptoms for the last 4 days with nasal congestion non productive cough followed by loose stool . last night she spiked fever of 100.3F and multiple episodes of non projectile /non bilious vomiting with no hemetemesis. she is also having gen body aches/pain and fatigure. works as [employer] and [employer] positive flu contacts. minimal abdominal discomfort with cramping at times. Allergies/Adverse Reactions: Sulfa (Sulfonamide Antibiotics) [Sulfa(Sulfonamide Antibiotics)] Allergy (Mild, Verified 07/04/19 12:15) Rash rash aspirin Adverse Reaction (Severe, Verified 07/04/19 12:15) advised not to take it d/t it will cause her to bleed Home Medications: Metformin HCl 500 mg [Glucophage 500 MG] 500 mg PO DAILY 07/14/14 [History ] Citalopram Hydrobromide 20 mg* [ceLEXa 20 MG] 20 mg PO DAILY 07/24/14 [ History] Lorazepam 0.5 mg [Ativan 0.5 MG] 0.5 mg PO TID 07/02/15 [History] Montelukast Sodium [Singulair] 10 mg PO DAILY 07/02/15 [History] Sitagliptin Phosphate [Januvia] 100 mg PO DAILY 07/08/15 [History] Famotidine 40 mg PO BID 03/09/16 [History] Metformin HCl 500 mg [Glucophage 500 MG] 250 mg PO HS 03/09/16 [History] Diphenhydramine HCl 25 mg [Benadryl 25 mg Capsule] 25 mg PO QHS 05/28/16 [ History] Folic Acid 0.8 mg PO DAILY 08/16/16 [History] Naproxen 375 mg [Naprosyn 375 mg] 375 mg PO BID 08/16/16 [History] Furosemide [Lasix] 20 mg PO DAILY 09/15/16 [History] SUMAtriptan succinate [Imitrex 50 mg] 50 mg PO DAILY PRN PRN 09/15/16 [History] Levothyroxine Sodium 75 Mcg [Synthroid 75 Mcg] 75 mcg PO DAILY 11/04/16 [ History] Metoprolol Tartrate 25 mg [Lopressor 25MG Tab] 12.5 mg PO DAILY 08/28/17 [ History] Rivaroxaban 10 mg Tablet [Xarelto 10 mg Tablet] 20 mg PO DAILY 08/28/17 [ History] Topiramate 25 mg [Topamax 25 MG] 50 mg PO BID 10/14/17 [History] Gabapentin 400 mg [Neurontin 400 MG] 400 mg PO BID 12/07/18 [History] Hx Tetanus, Diphtheria Vaccination/Date Given: Yes Hx Influenza Vaccination/Date Given: Yes Hx Pneumococcal Vaccination/Date Given: Yes Immunizations Up to Date: Yes - Review of Systems Constitutional: Fever, Chills, Fatigue, Malaise Eyes: No Symptoms Ears, Nose, & Throat: Nose Congestion, Throat Pain Respiratory: Cough, No Dyspnea on Exertion (MONZON), No Wheezing Cardiac: No Symptoms Abdominal/Gastrointestinal: Abdominal Pain, Nausea, Vomiting, Diarrhea Genitourinary Symptoms: No Symptoms Musculoskeletal: Myalgias Skin: No Symptoms Neurological: No Symptoms Psychological: No Symptoms Endocrine: No Symptoms Hematologic/Lymphatic: No Symptoms Immunological/Allergic: No Symptoms - Past Medical History Pertinent Past Medical History: Yes Neurological History: No Pertinent History ENT History: No Pertinent History Cardiac History: Congestive Heart Failure, High Cholesterol, Other Respiratory History: Asthma Endocrine Medical History: Diabetes Type II Musculoskeletal History: No Pertinent History GI Medical History: GERD History: No Pertinent History Psycho-Social History: Anxiety, Depression Female Reproductive Disorders: Fibroids Other Medical History: patient states she has ITP, sleep apnea - Past Surgical History Past Surgical History: Yes Neuro Surgical History: No Pertinent History Cardiac: No Pertinent History Respiratory: No Pertinent History Gastrointestinal: No Pertinent History Genitourinary: No Pertinent History Musculoskeletal: Other Female Surgical History: No Pertinent History Other Surgical History: bunion to right foot - Social History Smoking Status: Never smoker Exposure to second hand smoke: Yes Alcohol Use: None Drug Use: none Patient Lives Alone: No Significant Family History: no pertinent family hx, heart disease, hypertension - Female History Hx Now: No - Nursing Vital Signs Nursing Vital Signs: Initial Vital Signs Temperature 98.1 F 07/04/19 12:06 Pulse Rate 93 H 07/04/19 12:06 Respiratory Rate 18 07/04/19 12:06 Blood Pressure 139/90 07/04/19 12:06 O2 Sat by Pulse Oximetry 95 07/04/19 12:06 Pain Scale Pain Intensity 2 - Physical Exam General Appearance: no apparent distress Eye Exam: PERRL/EOMI Ears, Nose, Throat Exam: normal ENT inspection, TMs normal, pharyngeal erythema Neck Exam: normal inspection, non-tender Respiratory Exam: normal breath sounds, lungs clear, No chest tenderness, No respiratory distress Cardiovascular Exam: regular rate/rhythm, normal heart sounds, normal peripheral pulses Gastrointestinal/Abdomen Exam: soft, normal bowel sounds, tenderness, No distention, No mass, No guarding Back Exam: normal inspection Extremity Exam: normal inspection, normal range of motion Neurologic Exam: alert, 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, cooperative Skin Exam: normal color Lymphatic Exam: adenopathy SpO2 Interpretation: normal SpO2: 95 O2 Delivery: Room Air - Course Nursing assessment & vital signs reviewed: Yes Ordered Tests: Active Orders 24 hr Category Date Time Status IV Insertion STAT Care 07/04/19 12:44 Active GALLBLADDER [US] Stat Exams 07/04/19 16:12 Completed OBSTR/ACUTE ABDOMEN SERIES Stat Exams 07/04/19 12:44 Completed AMYLASE Stat Lab 07/04/19 12:30 Completed CBC W DIFF Stat Lab 07/04/19 12:30 Completed CMP Stat Lab 07/04/19 12:30 Completed CULTURE,URINE Stat Lab 07/04/19 14:00 Received HCG,QUALITATIVE URINE Stat Lab 07/04/19 14:00 Completed LIPASE Stat Lab 07/04/19 12:30 Completed UA W/RFX UR CULTURE Stat Lab 07/04/19 14:00 Completed Medication Summary Discontinued Medications Generic Name Dose Route Start Last Admin Trade Name Freq PRN Reason Stop Dose Admin Al Hydrox/Mg Hydrox/Simethicone Confirm 07/04/19 13:54 Maalox Es 30 Ml Unit Dose Administered 07/04/19 13:55 Dose 30 ml .ROUTE .STK-MED ONE Sodium Chloride 1,000 mls @ 999 mls/hr 07/04/19 12:44 07/04/19 14:06 Sodium Chloride 0.9% 1000 Ml IV 07/04/19 13:44 Infused .Q1H1M STA Infusion Sodium Chloride Confirm 07/04/19 12:59 Sodium Chloride 0.9% 1000 Ml Administered 07/04/19 13:00 Dose 1,000 mls @ ud .ROUTE .STK-MED ONE Lidocaine HCl Confirm 07/04/19 13:54 Xylocaine Hcl Viscous * Administered 07/04/19 13:55 Dose 15 ml .ROUTE .STK-MED ONE Magnesium Hydroxide 45 ml 07/04/19 14:09 07/04/19 14:53 Gi Cocktail 45 Ml (Maalox/Lidocaine) PO 07/04/19 14:10 45 ml STAT ONE Administration Morphine Sulfate 4 mg 07/04/19 12:44 07/04/19 13:03 Morphine Sulfate 4 Mg Inj IV 07/04/19 12:45 4 mg STAT ONE Administration Morphine Sulfate Confirm 07/04/19 12:59 Morphine Sulfate 4 Mg Inj Administered 07/04/19 13:00 Dose 4 mg .ROUTE .STK-MED ONE Morphine Sulfate 4 mg 07/04/19 14:09 07/04/19 14:20 Morphine Sulfate 4 Mg Inj IV 07/04/19 14:10 4 mg STAT ONE Administration Morphine Sulfate Confirm 07/04/19 14:19 Morphine Sulfate 4 Mg Inj Administered 07/04/19 14:20 Dose 4 mg .ROUTE .STK-MED ONE Ondansetron HCl 4 mg 07/04/19 12:44 07/04/19 13:03 Zofran 4 Mg/2 Ml Vial IV 07/04/19 12:45 4 mg STAT ONE Administration Ondansetron HCl Confirm 07/04/19 12:59 Zofran 4 Mg/2 Ml Vial Administered 07/04/19 13:00 Dose 4 mg .ROUTE .STK-MED ONE Lab/Rad Data: Laboratory Result Diagrams 07/04/19 12:30 07/04/19 12:30 Laboratory Results 07/04/19 07/04/19 07/04/19 Range/Units 14:00 14:00 13:00 WBC (4.0-10.5) K/mm3 RBC (4.1-5.4) M/mm3 Hgb (12.0-16.0) gm/dl Hct (35-47) % MCV (78-100) fl MCH (26-32) pg MCHC (32-36) g/dl RDW (11.5-14.0) % Plt Count (150-450) K/mm3 MPV (7.5-11.0) fl Gran % (36.0-66.0) % Eos # (Auto) (0-0.5) Absolute Lymphs (auto) (1.0-4.6) Absolute Monos (auto) (0.0-1.3) Lymphocytes % (24.0-44.0) % Monocytes % (0.0-12.0) % Eosinophils % (0.00-5.0) % Basophils % (0.0-0.4) % Absolute Granulocytes (1.4-6.9) Basophils # (0-0.4) Sodium (137-145) mmol/L Potassium (3.5-5.1) mmol/L Chloride (98-107) mmol/L Carbon Dioxide (22-30) mmol/L Anion Gap (5-15) MEQ/L BUN (7-17) mg/dL Creatinine (0.52-1.04) mg/dL Estimated GFR ML/MIN Glucose (74-106) mg/dL Calcium (8.4-10.2) mg/dL Total Bilirubin (0.2-1.3) mg/dL AST (14-36) U/L ALT (0-35) U/L Alkaline Phosphatase (38-126) U/L Serum Total Protein (6.3-8.2) g/dL Albumin (3.5-5.0) g/dL Amylase (30-110) U/L Lipase (23-300) U/L Urine Color YELLOW (YELLOW) Urine Appearance SLIGHTLY CLOUDY (CLEAR) Urine pH 5.0 (5-6) Ur Specific [place] 1.020 (1.005-1.025) Urine Protein NEGATIVE (Negative) Urine Ketones NEGATIVE (NEGATIVE) Urine Blood NEGATIVE (0-5) [place]/ul Urine Nitrite NEGATIVE (NEGATIVE) Urine Bilirubin NEGATIVE (NEGATIVE) Urine Urobilinogen NEGATIVE (0-1) mg/dL Ur Leukocyte Esterase SMALL (NEGATIVE) Urine WBC (Auto) 6-10 (0-5) /HPF Urine RBC (Auto) 3-5 (0-2) /HPF U Epithel Cells (Auto) FEW (FEW) /HPF Urine Bacteria (Auto) MODERATE (NEGATIVE) /HPF Urine Mucus (Auto) SLIGHT (NEGATIVE) /HPF Urine Culture Reflexed YES (NO) Urine Glucose NEGATIVE (NEGATIVE) mg/dL Urine HCG, Qual NEGATIVE (Negative) Influenza Type A Ag NEGATIVE (NEGATIVE) Influenza Type B Ag NEGATIVE (NEGATIVE) RSV (PCR) NEGATIVE (Negative) 07/04/19 07/04/19 Range/Units 12:30 12:30 WBC 10.7 H (4.0-10.5) K/mm3 RBC 4.11 (4.1-5.4) M/mm3 Hgb 10.5 L (12.0-16.0) gm/dl Hct 33.7 L (35-47) % MCV 82.0 (78-100) fl MCH 25.5 L (26-32) pg MCHC 31.2 L (32-36) g/dl RDW 16.1 H (11.5-14.0) % Plt Count 318 (150-450) K/mm3 MPV 9.7 (7.5-11.0) fl Gran % 74.2 H (36.0-66.0) % Eos # (Auto) 0.16 (0-0.5) Absolute Lymphs (auto) 1.78 (1.0-4.6) Absolute Monos (auto) 0.79 (0.0-1.3) Lymphocytes % 16.7 L (24.0-44.0) % Monocytes % 7.4 (0.0-12.0) % Eosinophils % 1.5 (0.00-5.0) % Basophils % 0.2 (0.0-0.4) % Absolute Granulocytes 7.91 H (1.4-6.9) Basophils # 0.02 (0-0.4) Sodium 140 (137-145) mmol/L Potassium 3.9 (3.5-5.1) mmol/L Chloride 106 (98-107) mmol/L Carbon Dioxide 24 (22-30) mmol/L Anion Gap 14.4 (5-15) MEQ/L BUN 22 H (7-17) mg/dL Creatinine 0.58 (0.52-1.04) mg/dL Estimated GFR > 60.0 ML/MIN Glucose 126 H (74-106) mg/dL Calcium 8.8 (8.4-10.2) mg/dL Total Bilirubin 0.50 (0.2-1.3) mg/dL AST 43 H (14-36) U/L ALT 47 H (0-35) U/L Alkaline Phosphatase 109 (38-126) U/L Serum Total Protein 7.7 (6.3-8.2) g/dL Albumin 4.2 (3.5-5.0) g/dL Amylase 77 (30-110) U/L Lipase 85 (23-300) U/L Urine Color (YELLOW) Urine Appearance (CLEAR) Urine pH (5-6) Ur Specific [place] (1.005-1.025) Urine Protein (Negative) Urine Ketones (NEGATIVE) Urine Blood (0-5) Ch[place]/ul Urine Nitrite (NEGATIVE) Urine Bilirubin (NEGATIVE) Urine Urobilinogen (0-1) mg/dL Ur Leukocyte Esterase (NEGATIVE) Urine WBC (Auto) (0-5) /HPF Urine RBC (Auto) (0-2) /HPF U Epithel Cells (Auto) (FEW) /HPF Urine Bacteria (Auto) (NEGATIVE) /HPF Urine Mucus (Auto) (NEGATIVE) /HPF Urine Culture Reflexed (NO) Urine Glucose (NEGATIVE) mg/dL Urine HCG, Qual (Negative) Influenza Type A Ag (NEGATIVE) Influenza Type B Ag (NEGATIVE) RSV (PCR) (Negative) - Progress Progress: improved, re-examined Progress Note: 38 years old is evaluated for flulike symptoms with vomiting and diarrhea but no fever. She has a negative flu. Negative acute abdomen series. Patient is given IV fluid and pain medications, and evaluation feeling better. She has some tenderness in the right upper quadrant ultrasound is negative for acute cholecystitis/stones. She did not vomit while in here. Patient probably had a viral gastroenteritis, recommended hydration and Tylenol along with Zofran as needed. Do not think she needs any further work up and is stable for discharge with outpatient follow up. 07/04/19 16:55 Counseled pt/family regarding: lab results, diagnosis, need for follow-up, rad results - Departure Departure Disposition: Home Clinical Impression: Gastroenteritis Condition: Good Critical Care Time: No Referrals: TIM MAGUIRE MD [Primary Care Provider] - (1-2 days for reevaluation) Instructions: Vomiting -- Adult, Diarrhea and Traveler's Diarrhea -- Adult Additional Instructions: drink plenty of fluids. Take Tylenol/Zofran as needed. Followup with primary care physician for reevaluation. Return to ER for worsening. Prescriptions: Ondansetron HCl [Zofran] 4 mg PO TID PRN #10 tablet PRN Reason: Nausea/Vomiting
[2019-07-04 12:57] LABS: Absolute Neutrophil Ct (ANC) 7.91 (1.4-6.9); BASOPHIL % 0.2 % (0.0-0.4); Basophil (Absolute #) 0.02 (0-0.4); Eosinophil % 1.5 % (0.00-5.0); Eosinophil (Absolute #) 0.16 (0-0.5); Hematocrit 33.7 % (35-47); Hemoglobin 10.5 gm/dl (12.0-16.0); Lymphocyte (Absolute #) 1.78 (1.0-4.6); Lymphocytes % 16.7 % (24.0-44.0); Mean Corpuscular Hemoglobin 25.5 pg (26-32); Mean Corpuscular Hgb Concent. 31.2 g/dl (32-36); Mean Platelet Volume 9.7 fl (7.5-11.0); Monocyte (Absolute #) 0.79 (0.0-1.3); Monocytes % 7.4 % (0.0-12.0); Neutrophil % 74.2 % (36.0-66.0); Platelet Count 318 K/mm3 (150-450); Red Blood Count 4.11 M/mm3 (4.1-5.4); Red Cell Distribution Width 16.1 % (11.5-14.0); White Blood Count 10.7 K/mm3 (4.0-10.5)
[2019-07-04] MEDS ORDERED: Zofran 4 MG/2 ML VIAL ONE (12:59)
[2019-07-04] MEDS ORDERED: MORPHINE SULFATE 4 MG INJ ONE ×2 (12:59→14:19)
[2019-07-04] MEDS ORDERED: Sodium Chloride 0.9% 1000 ML 1,000 ML ONE (12:59)
[2019-07-04 13:03] LABS: ALBUMIN 4.2 g/dL (3.5-5.0); ALKALINE PHOSPHATASE 109 U/L (38-126); AMYLASE 77 U/L (30-110); ANION GAP 14.4 MEQ/L (5-15); BLOOD UREA NITROGEN 22 mg/dL (7-17); CHLORIDE 106 mmol/L (98-107); Calcium 8.8 mg/dL (8.4-10.2); Carbon Dioxide 24 mmol/L (22-30); Creatinine 1 0.58 mg/dL (0.52-1.04); Glucose 126 mg/dL (74-106); LIPASE 85 U/L (23-300); Potassium 3.9 mmol/L (3.5-5.1); SGOT/AST 43 U/L (14-36); SGPT/ALT 47 U/L (0-35); SODIUM 140 mmol/L (137-145); Total Protein 7.7 g/dL (6.3-8.2)
--- NOTE | 2019-07-04 13:42 | XRAY ---
Indication: Nausea, vomiting, diarrhea. Flu symptoms. Comparison: Chest exam April 25, 2019. 2 views of the abdomen demonstrates nonspecific nonobstructed bowel gas pattern. No free air. Solid organs and osseous structures unremarkable. Single PA chest again demonstrates normal heart, lungs, and bony thorax. Impression: Nonacute nonobstructed abdomen. Stable normal 1 view chest.
[2019-07-04] MEDS ORDERED: MAALOX ES 30 ML UNIT DOSE ONE (13:54)
[2019-07-04] MEDS ORDERED: XYLOCAINE HCl Viscous ONE (13:54)
[2019-07-04 13:59] LABS: INFLUENZA A NEGATIVE (NEGATIVE); INFLUENZA B NEGATIVE (NEGATIVE); RESPIRATORY SYNCTIAL VIRUS NEGATIVE (Negative)
[2019-07-04 14:07] LABS: Appearance SLIGHTLY CLOUDY (CLEAR); Bacteria MODERATE /HPF (NEGATIVE); Bilirubin NEGATIVE (NEGATIVE); Blood NEGATIVE Ery/ul (0-5); Epithelial Cells FEW /HPF (FEW); Glucose NEGATIVE (NEGATIVE); Ketones NEGATIVE (NEGATIVE); Leukocyte Esterase SMALL (NEGATIVE); Mucus SLIGHT /HPF (NEGATIVE); Nitrite NEGATIVE (NEGATIVE); Protein,Urine Dip NEGATIVE (Negative); Urobilinogen NEGATIVE mg/dL (0-1)
[2019-07-04] MEDS ORDERED: GI COCKTAIL 45 ML (Maalox/Lidocaine) PO ONE (14:09)
[2019-07-04 15:11] VITALS: BP 146/88
--- NOTE | 2019-07-04 16:23 | XRAY ---
Indication: Fever and vomiting. Acute cholecystitis. Two-dimensional gallbladder sonogram performed. Comparison: June 22, 2016. Again fatty hepatomegaly measuring 22.7 cm. Remaining visualized gallbladder, pancreas, and right kidney appear sonographically unremarkable. Common bile duct measures 6 mm. Right kidney measures 11.3 cm in length. No ascites. Impression: Fatty hepatomegaly. Otherwise negative gallbladder sonogram.
[2019-07-04 16:52] VITALS: PULSE 70
[2019-07-04 16:54] VITALS: O2SAT 95
== END 2019-07-04 17:08 | disposition home or self-care (01) ==
LOC: ED 12:00
DX: K52.9 Noninfective gastroenteritis and colitis, unspecified (principal)
CPT/HCPCS: 36000; 36415; 74022; 76705; 80053; 81001; 82150; 83690; 84703; 85025; 87086; 87631; 96360; 96374; 96375; 99284; J2270; J2405; A9270-GY

== ENCOUNTER 2019-07-31 13:23 | Emergency (ER) | payer OTHER ==
--- NOTE | 2019-07-31 13:30 | ERPHSYRPT ---
- History of Present Illness Time Seen by Provider: 07/31/19 13:30 Source: patient, EMS Exam Limitations: no limitations Physician History: The patient is a 39-year-old female the past medical history significant for atrial fibrillation for which she is currently anticoagulated on Xarelto, hypertension, diabetes mellitus, in addition to obesity presents with a chief complaint of chest pain. 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 She reportedly went to [facility] emergency department and had a work-up at that location was released to follow-up with her primary care provider. She states her pain has been ongoing since that time is described as a sharp pain located in her midsternum and radiates to her left arm and back. The pain is associated with nausea and reported shortness of breath. Of note, the patient does have a history of anxiety and depression and reported has had multiple ED visits in the past for chest pain that is been attributed to anxiety according to her as well as her mother who eventually arrived at bedside. Patient states that she has been under a lot of stress and anxious about cardiac disease since her recently had backslash coronary bypass surgery. She arrives via EMS and reportedly received nitroglycerin which actually increased her pain. She reports that she has been taken Tylenol for her pain with no relief. Her chemical laboratory scientist is Dr. Denis Allergies/Adverse Reactions: Sulfa (Sulfonamide Antibiotics) [Sulfa(Sulfonamide Antibiotics)] Allergy (Mild, Verified 07/31/19 13:27) Rash rash aspirin Adverse Reaction (Severe, Verified 07/31/19 13:27) advised not to take it d/t it will cause her to bleed Home Medications: Metformin HCl 500 mg [Glucophage 500 MG] 500 mg PO DAILY 07/14/14 [History ] Citalopram Hydrobromide 20 mg* [ceLEXa 20 MG] 20 mg PO DAILY 07/24/14 [ History] Lorazepam 0.5 mg [Ativan 0.5 MG] 0.5 mg PO TID 07/02/15 [History] Montelukast Sodium [Singulair] 10 mg PO DAILY 07/02/15 [History] Sitagliptin Phosphate [Januvia] 100 mg PO DAILY 07/08/15 [History] Famotidine 40 mg PO BID 03/09/16 [History] Metformin HCl 500 mg [Glucophage 500 MG] 250 mg PO HS 03/09/16 [History] Diphenhydramine HCl 25 mg [Benadryl 25 mg Capsule] 25 mg PO QHS 05/28/16 [ History] Naproxen 375 mg [Naprosyn 375 mg] 375 mg PO BID 08/16/16 [History] Furosemide [Lasix] 20 mg PO DAILY 09/15/16 [History] SUMAtriptan succinate [Imitrex 50 mg] 50 mg PO DAILY PRN PRN 09/15/16 [History] Levothyroxine Sodium 75 Mcg [Synthroid 75 Mcg] 75 mcg PO DAILY 11/04/16 [ History] Metoprolol Tartrate 25 mg [Lopressor 25MG Tab] 12.5 mg PO DAILY 08/28/17 [ History] Rivaroxaban 10 mg Tablet [Xarelto 10 mg Tablet] 20 mg PO DAILY 08/28/17 [ History] Topiramate 25 mg [Topamax 25 MG] 50 mg PO BID 10/14/17 [History] Gabapentin 400 mg [Neurontin 400 MG] 400 mg PO BID 12/07/18 [History] Hx Tetanus, Diphtheria Vaccination/Date Given: Yes Hx Influenza Vaccination/Date Given: Yes Hx Pneumococcal Vaccination/Date Given: Yes - Review of Systems Constitutional: No Fever, No Chills Ears, Nose, & Throat: No Symptoms Respiratory: Dyspnea, No Cough, No Cyanosis Cardiac: Chest Pain, No Edema, No Palpitations, No Syncope, No Orthopnea, No PND Abdominal/Gastrointestinal: Nausea, No Abdominal Pain Genitourinary Symptoms: No Symptoms Musculoskeletal: No Symptoms Skin: No Symptoms Neurological: Dizziness, Headache Psychological: Anxiety, No Suicidal Ideations, No Homicidal Ideations, No Hallucinations Endocrine: No Symptoms All Other Systems: Reviewed and Negative - Past Medical History Pertinent Past Medical History: Yes Neurological History: No Pertinent History ENT History: No Pertinent History Cardiac History: Congestive Heart Failure, High Cholesterol, Other Respiratory History: Asthma Endocrine Medical History: Diabetes Type II Musculoskeletal History: No Pertinent History GI Medical History: GERD History: No Pertinent History Psycho-Social History: Anxiety, Depression Female Reproductive Disorders: Fibroids Other Medical History: patient states she has ITP, sleep apnea - Past Surgical History Past Surgical History: Yes Neuro Surgical History: No Pertinent History Cardiac: No Pertinent History Respiratory: No Pertinent History Gastrointestinal: No Pertinent History Genitourinary: No Pertinent History Musculoskeletal: Other Female Surgical History: No Pertinent History Other Surgical History: bunion to right foot - Social History Smoking Status: Never smoker Exposure to second hand smoke: Yes Alcohol Use: None Drug Use: none Patient Lives Alone: No Significant Family History: no pertinent family hx, heart disease, hypertension - Nursing Vital Signs Nursing Vital Signs: Initial Vital Signs Temperature 97.9 F 07/31/19 13:33 Pulse Rate 85 07/31/19 13:33 Respiratory Rate 18 07/31/19 13:33 Blood Pressure 133/61 07/31/19 13:33 O2 Sat by Pulse Oximetry 98 07/31/19 13:33 Pain Scale Pain Intensity 2 - Physical Exam General Appearance: no apparent distress, alert, obese Eye Exam: PERRL/EOMI, EOM palsy/anisocoria Ears, Nose, Throat Exam: No TM abnormal (R), No TM abnormal (L), No pharyngeal erythema, No tonsillar exudate Neck Exam: normal inspection Respiratory Exam: normal breath sounds, lungs clear, airway intact, No chest tenderness, No respiratory distress, No diminished breath sounds, No accessory muscle use Cardiovascular Exam: regular rate/rhythm, normal peripheral pulses, capillary refill <2 sec, No murmur, No friction rub, No gallop Gastrointestinal/Abdomen Exam: soft, other (Abdominal exam was limited due to abdominal obesity), No tenderness, No distention, No guarding Pelvic Exam: not done Rectal Exam: deferred Back Exam: normal inspection Extremity Exam: normal inspection, other (No symmetric lower extremity edema, calf tenderness, or erythema to suggest DVT), No contusions, No calf tenderness , No deformities, No pedal edema, No swelling, No tenderness Neurologic Exam: alert, 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, cooperative Skin Exam: normal color, warm, dry, No rash, No petechiae O2 Delivery: Room Air - Course Nursing assessment & vital signs reviewed: Yes EKG Interpreted by Me: RATE, Sinus Rhythm, Left Calhoun Deviation, NORMAL INTERVALS , NORMAL QRS, NORMAL ST-T, Other (No evidence of acute myocardial ischemia or injury) - Radiology Exams Chest X-ray Interpretation: Reviewed by me, Negative Ordered Tests: Medication Summary Discontinued Medications Generic Name Dose Route Start Last Admin Trade Name Paxton PRN Reason Stop Dose Admin Lorazepam 1 mg 07/31/19 14:12 07/31/19 14:14 Ativan 1 Mg PO 07/31/19 14:13 1 mg STAT ONE Administration Lorazepam Confirm 07/31/19 14:13 Ativan 1 Mg Administered 07/31/19 14:14 Dose 1 mg .ROUTE .STK-MED ONE Lab/Rad Data: Laboratory Result Diagrams 07/31/19 13:55 07/31/19 13:55 Laboratory Results 07/31/19 07/31/19 07/31/19 Range/Units 16:10 13:55 13:55 WBC 6.6 (4.0-10.5) K/mm3 RBC 3.90 L (4.1-5.4) M/mm3 Hgb 10.0 L (12.0-16.0) gm/dl Hct 32.1 L (35-47) % MCV 82.3 (78-100) fl MCH 25.6 L (26-32) pg MCHC 31.2 L (32-36) g/dl RDW 16.1 H (11.5-14.0) % Plt Count 313 (150-450) K/mm3 MPV 9.1 (7.5-11.0) fl Gran % 69.2 H (36.0-66.0) % Eos # (Auto) 0.09 (0-0.5) Absolute Lymphs (auto) 1.43 (1.0-4.6) Absolute Monos (auto) 0.46 (0.0-1.3) Lymphocytes % 21.8 L (24.0-44.0) % Monocytes % 7.0 (0.0-12.0) % Eosinophils % 1.4 (0.00-5.0) % Basophils % 0.6 (0.0-0.4) % Absolute Granulocytes 4.53 (1.4-6.9) Basophils # 0.04 (0-0.4) Sodium 139 (137-145) mmol/L Potassium 3.9 (3.5-5.1) mmol/L Chloride 111 H (98-107) mmol/L Carbon Dioxide 21 L (22-30) mmol/L Anion Gap 10.4 (5-15) MEQ/L BUN 19 H (7-17) mg/dL Creatinine 0.71 (0.52-1.04) mg/dL Estimated GFR > 60.0 ML/MIN Glucose 134 H (74-106) mg/dL Calcium 9.0 (8.4-10.2) mg/dL Troponin I < 0.012 < 0.012 (0.000-0.034) ng/mL NT-Pro-B Natriuret Pep 118 (0-450) pg/mL - Progress Progress: improved Progress Note: 07/31/19 14:47 Records from [facility] were faxed over to our location. It appears the patient was seen on July 29, 2019 for the same complaints. She underwent a noncontrasted head CT that was within normal limits in addition to a chest x- ray at that time that was within normal limits. Laboratory work-up was reviewed and appeared to be relatively benign to include cardiac markers, electrolytes and CBC. Her hemoglobin at that time was 10.1. [facility] also recommended that she follow-up with cardiology a Dr. Nithin Summers 2 to 3 days. 07/31/19 15:11 Patient is reassessed to find that she was feeling better but still having pain. Labs are reviewed and relatively benign with the exception of a mildly elevated glucose reflective of her known history of diabetes mellitus. Her EKG showed no evidence of acute myocardial ischemia or injury and her troponin is within normal limits. I will attempt to contact the chemical laboratory scientist she was referred to during her last ED visit in addition to checking a second troponin II hours from the initial troponin that was obtained today. If this is normal I feel the patient can be appropriately discharged home to follow-up with cardiology and her primary care provider as an outpatient. 07/31/19 15:[address] Francis, chemical laboratory scientist, at [facility] and discussed the case with him. He agreed the patient can be discharged home if her 2nd troponin is wnl. He will have the clinic nurse schedule her to be seen next week. 07/31/19 16:35 Repeat EKG at 1610 appears to be unchanged with no evidence of acute myocardial ischemia or injury. Nontoxic in appearance. Low gestalt for PE and given patient taking rivaroxban likelihood of PE thought to be low. Low suspicion for dissecting aortic aneurysm given CXR without evidence of widen mediastinum and equal peripheral pulses. Low suspicion for ACS at this time given patient's CP has been ongoing for well-over 24-48 hrs and with serial troponins and EKG relatively benign. Cardiology consulted (see above recommendations). CXR also ordered to r/o pneumonia, pleural effusion, PTX and was negative for such. Ultimately, the patient was discharged home to f/u with cardiology as an outpatient. ED return precautions for CP given. Discussed with Dr.: Other (Dr. Francis with cardiology at [facility]) Counseled pt/family regarding: lab results, diagnosis, need for follow-up, rad results - Departure Departure Disposition: Home Clinical Impression: Chest pain, unspecified Condition: Stable Critical Care Time: No Referrals: TIM MAGUIRE MD [Primary Care Provider] - JUSTEN FRANCIS MD [NON-STAFF PHY W/O PRIVILEGES] - Instructions: Chest Pain (DC) Additional Instructions: Please call Dr. Francis's cardiology at [facility] office to confirm your scheduled outpatient appointment that should ideally take place next week. He informed me that he was currently working with the clinical research administrator for you to be scheduled to be seen next week. Please return to the emergency department if your pain were to become worse. You can also call Dr. Summers's office who is one of Dr. Francis's partners. The number to the clinic is [phone] or .
[2019-07-31 14:03] LABS: Absolute Neutrophil Ct (ANC) 4.53 (1.4-6.9); BASOPHIL % 0.6 % (0.0-0.4); Basophil (Absolute #) 0.04 (0-0.4); Eosinophil % 1.4 % (0.00-5.0); Eosinophil (Absolute #) 0.09 (0-0.5); Hematocrit 32.1 % (35-47); Lymphocyte (Absolute #) 1.43 (1.0-4.6); Lymphocytes % 21.8 % (24.0-44.0); Mean Cell Volume 82.3 fl (78-100); Mean Corpuscular Hemoglobin 25.6 pg (26-32); Mean Corpuscular Hgb Concent. 31.2 g/dl (32-36); Mean Platelet Volume 9.1 fl (7.5-11.0); Monocyte (Absolute #) 0.46 (0.0-1.3); Neutrophil % 69.2 % (36.0-66.0); Platelet Count 313 K/mm3 (150-450); Red Cell Distribution Width 16.1 % (11.5-14.0); White Blood Count 6.6 K/mm3 (4.0-10.5)
[2019-07-31] MEDS ORDERED: Ativan 1 MG PO ONE (14:12)
[2019-07-31] MEDS ORDERED: Ativan 1 MG ONE (14:13)
--- NOTE | 2019-07-31 14:28 | XRAY ---
Indication: Chest pain. Comparison: April 25, 2019. PA/lateral chest again demonstrates normal heart, lungs, and bony thorax.
[2019-07-31 14:29] LABS: ANION GAP 10.4 MEQ/L (5-15); BLOOD UREA NITROGEN 19 mg/dL (7-17); CHLORIDE 111 mmol/L (98-107); Carbon Dioxide 21 mmol/L (22-30); Creatinine 1 0.71 mg/dL (0.52-1.04); Glucose 134 mg/dL (74-106); NT PRO BNP 118 pg/mL (0-450); Potassium 3.9 mmol/L (3.5-5.1); SODIUM 139 mmol/L (137-145)
[2019-07-31 14:50] LABS: TROPONIN < 0.012 ng/mL (0.000-0.034)
[2019-07-31 16:16] VITALS: O2SAT 98
[2019-07-31 16:54] VITALS: BP 117/71; PULSE 76
== END 2019-07-31 16:58 | disposition home or self-care (01) ==
LOC: ED 13:23
DX: R07.9 Chest pain, unspecified (principal)
CPT/HCPCS: 36000; 36415; 71046; 80048; 83880; 84484; 85025; 93005; 93041; 99284; A9270-GY

== ENCOUNTER 2019-09-10 05:27 | Emergency (ER) | payer OTHER ==
--- NOTE | 2019-09-10 05:49 | ERPHSYRPT ---
- History of Present Illness Source: patient Exam Limitations: no limitations Associated Symptoms: headaches, No nausea, No vomiting, No abdominal pain, No shortness of breath, No diaphoresis, No cough, No chills, No chest pain, No fever, No syncope Hx Tetanus, Diphtheria Vaccination/Date Given: Yes Hx Influenza Vaccination/Date Given: Yes Hx Pneumococcal Vaccination/Date Given: Yes <JAN BISHOP - Last Filed: 09/10/19 06:58> <EMORY FERNANDO - Last Filed: 09/10/19 07:44> - History of Present Illness Time Seen by Provider: 09/10/19 05:40 Physician History: The patient is a 39-year-old female who presents with a chief complaint of lightheadedness. She stated she had a dull headache that started over the weekend but when she awoke this morning she felt lightheaded. The lightheadedness gets worse with going from sitting to standing. She denies nausea, vomiting, changes in her visual acuity, chest pain, shortness of breath, syncope, diarrhea, fever or recent illness. She denies any recent head trauma or direct falls. She denies focal weakness. She states that she started taking amlodipine, metoprolol in addition to atorvastatin starting last Tuesday that was prescribed by her multigraph operator and was feeling fine until she started taking these medications. She was accompanied in the emergency department by her . (JAN BISHOP) Allergies/Adverse Reactions: Sulfa (Sulfonamide Antibiotics) [Sulfa(Sulfonamide Antibiotics)] Allergy (Mild, Verified 07/31/19 13:27) Rash rash aspirin Adverse Reaction (Severe, Verified 07/31/19 13:27) advised not to take it d/t it will cause her to bleed Home Medications: Metformin HCl 500 mg [Glucophage 500 MG] 500 mg PO DAILY 07/14/14 [History ] Citalopram Hydrobromide 20 mg* [ceLEXa 20 MG] 20 mg PO DAILY 07/24/14 [ History] Lorazepam 0.5 mg [Ativan 0.5 MG] 0.5 mg PO TID 07/02/15 [History] Montelukast Sodium [Singulair] 10 mg PO DAILY 07/02/15 [History] Sitagliptin Phosphate [Januvia] 100 mg PO DAILY 07/08/15 [History] Famotidine 40 mg PO BID 03/09/16 [History] Metformin HCl 500 mg [Glucophage 500 MG] 250 mg PO HS 03/09/16 [History] Diphenhydramine HCl 25 mg [Benadryl 25 mg Capsule] 25 mg PO QHS 05/28/16 [ History] Naproxen 375 mg [Naprosyn 375 mg] 375 mg PO BID 08/16/16 [History] Furosemide [Lasix] 20 mg PO DAILY 09/15/16 [History] SUMAtriptan succinate [Imitrex 50 mg] 50 mg PO DAILY PRN PRN 09/15/16 [History] Levothyroxine Sodium 75 Mcg [Synthroid 75 Mcg] 75 mcg PO DAILY 11/04/16 [ History] Metoprolol Tartrate 25 mg [Lopressor 25MG Tab] 12.5 mg PO DAILY 08/28/17 [ History] Rivaroxaban 10 mg Tablet [Xarelto 10 mg Tablet] 20 mg PO DAILY 08/28/17 [ History] Topiramate 25 mg [Topamax 25 MG] 50 mg PO BID 10/14/17 [History] Gabapentin 400 mg [Neurontin 400 MG] 400 mg PO BID 12/07/18 [History] Travel Risk - International Travel Have you traveled outside of the country in past 3 weeks: No Have you or anyone close to you been diagnosed with or: No Do your reside in a community with a known COVID-19 case?: No - Coronavirus Screening Has patient experienced Coronavirus symptoms: No <JAN BISHOP - Last Filed: 09/10/19 06:58> - Review of Systems Constitutional: No Fever, No Chills, No Weakness Eyes: No Symptoms Ears, Nose, & Throat: No No Symptoms Neurological: Dizziness, Headache, Other (Lightheaded) Psychological: No Symptoms Endocrine: No Symptoms Hematologic/Lymphatic: No Symptoms All Other Systems: Reviewed and Negative <JAN BISHOP - Last Filed: 09/10/19 06:58> - Past Medical History Pertinent Past Medical History: Yes Neurological History: No Pertinent History ENT History: No Pertinent History Cardiac History: Congestive Heart Failure, High Cholesterol, Other Respiratory History: Asthma Endocrine Medical History: Diabetes Type II Musculoskeletal History: No Pertinent History GI Medical History: GERD History: No Pertinent History Psycho-Social History: Anxiety, Depression Female Reproductive Disorders: Fibroids Other Medical History: patient states she has ITP, sleep apnea - Past Surgical History Past Surgical History: Yes Neuro Surgical History: No Pertinent History Cardiac: No Pertinent History Respiratory: No Pertinent History Gastrointestinal: No Pertinent History Genitourinary: No Pertinent History Musculoskeletal: Other Female Surgical History: No Pertinent History Other Surgical History: bunion to right foot - Social History Smoking Status: Never smoker Exposure to second hand smoke: Yes Alcohol Use: None Drug Use: none Patient Lives Alone: No Significant Family History: no pertinent family hx, heart disease, hypertension <JAN BISHOP - Last Filed: 09/10/19 06:58> - Physical Exam General Appearance: no apparent distress, alert Eye Exam: PERRL/EOMI, No scleral icterus, No photophobia, No EOM palsy/ anisocoria Ears, Nose, Throat Exam: normal ENT inspection, pharynx normal, moist mucous membranes, No TM abnormal (R), No TM abnormal (L), No pharyngeal erythema, No tonsillar exudate Neck Exam: normal inspection, supple, No non-tender Respiratory Exam: normal breath sounds, lungs clear, No chest tenderness Cardiovascular Exam: regular rate/rhythm, normal heart sounds, normal peripheral pulses, No murmur, No friction rub, No gallop, No capillary refill < 2 sec Gastrointestinal/Abdomen Exam: soft, No tenderness, No distention, No mass Pelvic Exam: not done Rectal Exam: deferred Back Exam: normal inspection Extremity Exam: normal inspection Neurologic Exam: alert, 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, cooperative, sensation nml, abnormal inspector subassemblies II-XII, other (patient became orthostatic when going from sitting to standing), No motor deficits, No sensory deficit, No disoriented, No agitation, No uncooperative, No intoxicated appearance, No slurred speech, No dysarthria Skin Exam: normal color, warm, dry, No rash, No petechiae SpO2 Interpretation: normal O2 Delivery: Room Air <JAN BISHOP - Last Filed: 09/10/19 06:58> - Nursing Vital Signs Nursing Vital Signs: Initial Vital Signs Temperature 97.7 F 09/10/19 05:36 Pulse Rate 71 09/10/19 05:36 Respiratory Rate 18 09/10/19 05:36 Blood Pressure 130/59 09/10/19 05:36 O2 Sat by Pulse Oximetry 99 09/10/19 05:36 Pain Scale Pain Intensity 2 - Course Nursing assessment & vital signs reviewed: Yes EKG Interpreted by Me: RATE, Sinus Rhythm, Left Carleton Deviation, NORMAL INTERVALS , NORMAL QRS, Other (LVH, sinus rhythm, ventricular rate 61 bpm, VT interval 167 ms, QRS duration 95 ms, QT/QTc 444/449, No evidence of acute myocardial ischemia or injury) <JAN BISHOP - Last Filed: 09/10/19 06:58> - CT Exams Head CT Interpretation: Negative (Head CT negative) <EMORY FERNANDO - Last Filed: 09/10/19 07:44> Ordered Tests: Active Orders 24 hr Category Date Time Status EKG-ER Only STAT Care 09/10/19 05:50 Active IV Insertion STAT Care 09/10/19 05:50 Active HEAD WITHOUT CONTRAST [CT] Stat Exams 09/10/19 06:10 Taken BMP Stat Lab 09/10/19 06:30 Completed CBC W DIFF Stat Lab 09/10/19 06:30 Completed Medication Summary Discontinued Medications Generic Name Dose Route Start Last Admin Trade Name Paxton PRN Reason Stop Dose Admin Acetaminophen 975 mg 09/10/19 05:50 09/10/19 06:09 Tylenol 325 Mg PO 09/10/19 05:51 975 mg STAT ONE Administration Acetaminophen Confirm 09/10/19 06:08 Tylenol 325 Mg Administered 09/10/19 06:09 Dose 975 mg .ROUTE .STK-MED ONE Sodium Chloride 1,000 mls @ 999 mls/hr 09/10/19 05:50 09/10/19 07:19 Sodium Chloride 0.9% 1000 Ml IV 09/10/19 06:50 Infused .Q1H1M STA Infusion Sodium Chloride Confirm 09/10/19 06:09 Sodium Chloride 0.9% 1000 Ml Administered 09/10/19 06:10 Dose 1,000 mls @ ud .ROUTE .STK-MED ONE Ondansetron HCl 4 mg 09/10/19 07:30 09/10/19 07:34 Zofran 4 Mg/2 Ml Vial IV 09/10/19 07:31 4 mg STAT ONE Administration Ondansetron HCl Confirm 09/10/19 07:31 Zofran 4 Mg/2 Ml Vial Administered 09/10/19 07:32 Dose 4 mg .ROUTE .STK-MED ONE Lab/Rad Data: Laboratory Result Diagrams 09/10/19 06:30 09/10/19 06:30 Laboratory Results 09/10/19 09/10/19 Range/Units 06:30 06:30 WBC 7.0 (4.0-10.5) K/mm3 RBC 3.69 L (4.1-5.4) M/mm3 Hgb 9.5 L (12.0-16.0) gm/dl Hct 30.6 L (35-47) % MCV 82.9 (78-100) fl MCH 25.7 L (26-32) pg MCHC 31.0 L (32-36) g/dl RDW 15.8 H (11.5-14.0) % Plt Count 299 (150-450) K/mm3 MPV 9.9 (7.5-11.0) fl Gran % 65.5 (36.0-66.0) % Eos # (Auto) 0.13 (0-0.5) Absolute Lymphs (auto) 1.83 (1.0-4.6) Absolute Monos (auto) 0.43 (0.0-1.3) Lymphocytes % 26.1 (24.0-44.0) % Monocytes % 6.1 (0.0-12.0) % Eosinophils % 1.9 (0.00-5.0) % Basophils % 0.4 (0.0-0.4) % Absolute Granulocytes 4.58 (1.4-6.9) Basophils # 0.03 (0-0.4) Sodium 141 (137-145) mmol/L Potassium 4.1 (3.5-5.1) mmol/L Chloride 110 H (98-107) mmol/L Carbon Dioxide 23 (22-30) mmol/L Anion Gap 11.3 (5-15) MEQ/L BUN 20 H (7-17) mg/dL Creatinine 0.77 (0.52-1.04) mg/dL Estimated GFR > 60.0 ML/MIN Glucose 142 H (74-106) mg/dL Calcium 8.9 (8.4-10.2) mg/dL <JAN BISHOP - Last Filed: 09/10/19 06:58> - Progress Progress: unchanged <EMORY FERNANDO - Last Filed: 09/10/19 07:44> - Progress Progress Note: 09/10/19 06:45 Nontoxic in appearance. The patient presents with orthostasis and a headache. Her neuro exam is relatively benign and I believe her complaint if indeed dizziness is likely peripheral in origin rather than central. Because she has a headache and is anticoagulated with rivaroxaban I will perform a noncontrasted head CT to rule out intracranial hemorrhage, specifically subdural and intraparenchymal hemorrhage which I currently have a low suspicion for at this time. I will also obtain screening labs to include CBC to eval for evidence of anemia, in addition to CKD or acute kidney injury which would suggest dehydration as her etiology. Ultimately, I suspect the patient may be suffering from a medication interaction given that her symptoms started after she started taking amlodipine in addition to metoprolol. I do not feel the atorvastatin is the likely culprit. Of note, the triage nurse noted that the patient had a normal gait and was walking fine when she arrived to the emergency department. When she went from sitting to standing she appeared to become orthostatic and had to sit back down. I will give her some IV fluids and I suspect she be safe for discharge after her work-up is completed and after her fluids have been administered. Patient care is being transitioned to Dr. Fernando (JAN BISHOP) - Departure Critical Care Time: No <JAN BISHOP - Last Filed: 09/10/19 06:58> - Departure Departure Disposition: Home Critical Care Time: No <EMORY FERNANDO - Last Filed: 09/10/19 07:44> - Departure Clinical Impression: Orthostatic dizziness, Headache, Medication reaction Condition: Good Referrals: TIM MAGUIRE MD [Primary Care Provider] - Instructions: Side Effects From Medicines, Dizziness, Nonvertigo, (DC) Additional Instructions: Please discontinue your metoprolol in addition to your amlodipine and talk to your multigraph operator about your emergency department visit and symptoms and to receive further instructions on how to proceed with taking your medications. Forms: Work/School Release Form
[2019-09-10] MEDS ORDERED: Sodium Chloride 0.9% 1000 ML 1,000 ML IV STA (05:50)
[2019-09-10] MEDS ORDERED: TYLENOL 325 MG PO ONE (05:50)
[2019-09-10 05:51] VITALS: O2SAT 99
[2019-09-10] MEDS ORDERED: TYLENOL 325 MG ONE (06:08)
[2019-09-10] MEDS ORDERED: Sodium Chloride 0.9% 1000 ML 1,000 ML ONE (06:09)
[2019-09-10 06:42] LABS: Absolute Neutrophil Ct (ANC) 4.58 (1.4-6.9); BASOPHIL % 0.4 % (0.0-0.4); Basophil (Absolute #) 0.03 (0-0.4); Eosinophil % 1.9 % (0.00-5.0); Eosinophil (Absolute #) 0.13 (0-0.5); Hematocrit 30.6 % (35-47); Hemoglobin 9.5 gm/dl (12.0-16.0); Lymphocyte (Absolute #) 1.83 (1.0-4.6); Lymphocytes % 26.1 % (24.0-44.0); Mean Cell Volume 82.9 fl (78-100); Mean Corpuscular Hemoglobin 25.7 pg (26-32); Mean Platelet Volume 9.9 fl (7.5-11.0); Monocyte (Absolute #) 0.43 (0.0-1.3); Monocytes % 6.1 % (0.0-12.0); Neutrophil % 65.5 % (36.0-66.0); Platelet Count 299 K/mm3 (150-450); Red Blood Count 3.69 M/mm3 (4.1-5.4); Red Cell Distribution Width 15.8 % (11.5-14.0)
[2019-09-10 07:04] LABS: ANION GAP 11.3 MEQ/L (5-15); BLOOD UREA NITROGEN 20 mg/dL (7-17); CHLORIDE 110 mmol/L (98-107); Calcium 8.9 mg/dL (8.4-10.2); Carbon Dioxide 23 mmol/L (22-30); Creatinine 1 0.77 mg/dL (0.52-1.04); Glucose 142 mg/dL (74-106); Potassium 4.1 mmol/L (3.5-5.1); SODIUM 141 mmol/L (137-145)
[2019-09-10] MEDS ORDERED: Zofran 4 MG/2 ML VIAL IV ONE (07:30)
[2019-09-10] MEDS ORDERED: Zofran 4 MG/2 ML VIAL ONE (07:31)
[2019-09-10 07:53] VITALS: BP 128/84; PULSE 63
--- NOTE | 2019-09-10 08:50 | XRAY ---
Indication: Headache and dizziness. Multiple contiguous axial images obtained through the head without contrast. Comparison: November 22, 2016. Again normal appearing brain parenchyma, ventricles, and bony calvarium. Visualized paranasal sinuses and mastoid air cells are clear. Impression: Continued normal CT head without contrast exam.
== END 2019-09-10 07:53 | disposition home or self-care (01) ==
LOC: ED 05:27
DX: R42 Dizziness and giddiness (principal); R51 Headache; T50.905A Adverse effect of unspecified drugs, medicaments and biological substances, initial encounter; I50.9 Heart failure, unspecified; E78.00 Pure hypercholesterolemia, unspecified; E11.9 Type 2 diabetes mellitus without complications; Z79.4 Long term (current) use of insulin; J45.909 Unspecified asthma, uncomplicated; K21.9 Gastro-esophageal reflux disease without esophagitis; F41.9 Anxiety disorder, unspecified; F32.9 Major depressive disorder, single episode, unspecified; G47.30 Sleep apnea, unspecified
CPT/HCPCS: 36000; 36415; 70450; 80048; 85025; 93005; 96360; 96374; 96375; 99284; J2405; A9270-GY

== ENCOUNTER 2019-10-08 11:51 | Emergency (ER) | payer OTHER ==
[2019-10-08 12:03] VITALS: O2SAT 99
--- NOTE | 2019-10-08 12:03 | ERPHSYRPT ---
- History of Present Illness Time Seen by Provider: 10/08/19 11:59 Source: patient Exam Limitations: no limitations Physician History: This is a 39-year-old morbidly obese female with chronic recurrent migraine headaches. Patient returns to the emergency department with a recurrent migraine headache. Patient's pain began at 230 this morning. She denies head injury. It is a typical migraine headache for her. She has light sensitivity and noise sensitivity. Patient did take her Imitrex this morning however, it did not work. Is not the worst headache she is ever had Timing/Duration: today Quality: aching, throbbing Head Pain Location: global Severity of Pain-Max: moderate Severity of Pain-Current: moderate Recent Head Trauma: no recent headache/trauma, frequent headaches Modifying Factors: Improves With: exposure to light, noise Associated Symptoms: sensitive to light Previous symptoms: same symptoms as today Allergies/Adverse Reactions: Sulfa (Sulfonamide Antibiotics) [Sulfa(Sulfonamide Antibiotics)] Allergy (Mild, Verified 07/31/19 13:27) Rash rash aspirin Adverse Reaction (Severe, Verified 07/31/19 13:27) advised not to take it d/t it will cause her to bleed Home Medications: Metformin HCl 500 mg [Glucophage 500 MG] 500 mg PO DAILY 07/14/14 [History ] Citalopram Hydrobromide 20 mg* [ceLEXa 20 MG] 20 mg PO DAILY 07/24/14 [ History] Lorazepam 0.5 mg [Ativan 0.5 MG] 0.5 mg PO TID 07/02/15 [History] Montelukast Sodium [Singulair] 10 mg PO DAILY 07/02/15 [History] Sitagliptin Phosphate [Januvia] 100 mg PO DAILY 07/08/15 [History] Famotidine 40 mg PO BID 03/09/16 [History] Metformin HCl 500 mg [Glucophage 500 MG] 250 mg PO HS 03/09/16 [History] Diphenhydramine HCl 25 mg [Benadryl 25 mg Capsule] 25 mg PO QHS 05/28/16 [ History] Naproxen 375 mg [Naprosyn 375 mg] 375 mg PO BID 08/16/16 [History] Furosemide [Lasix] 20 mg PO DAILY 09/15/16 [History] SUMAtriptan succinate [Imitrex 50 mg] 50 mg PO DAILY PRN PRN 09/15/16 [History] Levothyroxine Sodium 75 Mcg [Synthroid 75 Mcg] 75 mcg PO DAILY 11/04/16 [ History] Metoprolol Tartrate 25 mg [Lopressor 25MG Tab] 12.5 mg PO DAILY 08/28/17 [ History] Rivaroxaban 10 mg Tablet [Xarelto 10 mg Tablet] 20 mg PO DAILY 08/28/17 [ History] Topiramate 25 mg [Topamax 25 MG] 50 mg PO BID 10/14/17 [History] Gabapentin 400 mg [Neurontin 400 MG] 400 mg PO BID 12/07/18 [History] Hx Tetanus, Diphtheria Vaccination/Date Given: Yes Hx Influenza Vaccination/Date Given: Yes Hx Pneumococcal Vaccination/Date Given: Yes Travel Risk - International Travel Have you traveled outside of the country in past 3 weeks: No Have you or anyone close to you been diagnosed with or: No Do your reside in a community with a known COVID-19 case?: Yes If Yes where:: [place] - Review of Systems Constitutional: No Symptoms Eyes: No Symptoms Ears, Nose, & Throat: No Symptoms Respiratory: No Symptoms Cardiac: No Symptoms Abdominal/Gastrointestinal: No Symptoms Genitourinary Symptoms: No Symptoms Musculoskeletal: No Symptoms Skin: No Symptoms Neurological: Headache Psychological: No Symptoms Endocrine: No Symptoms Hematologic/Lymphatic: No Symptoms Immunological/Allergic: No Symptoms All Other Systems: Reviewed and Negative - Past Medical History Pertinent Past Medical History: Yes Neurological History: No Pertinent History ENT History: No Pertinent History Cardiac History: Congestive Heart Failure, High Cholesterol, Other Respiratory History: Asthma Endocrine Medical History: Diabetes Type II Musculoskeletal History: No Pertinent History GI Medical History: GERD History: No Pertinent History Psycho-Social History: Anxiety, Depression Female Reproductive Disorders: Fibroids Other Medical History: patient states she has ITP, sleep apnea - Past Surgical History Past Surgical History: Yes Neuro Surgical History: No Pertinent History Cardiac: No Pertinent History Respiratory: No Pertinent History Gastrointestinal: No Pertinent History Genitourinary: No Pertinent History Musculoskeletal: Other Female Surgical History: No Pertinent History Other Surgical History: bunion to right foot - Social History Smoking Status: Never smoker Exposure to second hand smoke: Yes Alcohol Use: None Drug Use: none Patient Lives Alone: No Significant Family History: no pertinent family hx, heart disease, hypertension - Nursing Vital Signs Nursing Vital Signs: Initial Vital Signs Temperature 98.9 F 10/08/19 11:58 Pulse Rate 74 10/08/19 11:58 Respiratory Rate 20 10/08/19 11:58 Blood Pressure 153/83 10/08/19 11:58 O2 Sat by Pulse Oximetry 99 10/08/19 11:58 Pain Scale Pain Intensity 10 - Physical Exam General Appearance: mild distress, alert, anxiety, obese Eye Exam: PERRL/EOMI, eyes nml inspection Ears, Nose, Throat Exam: normal ENT inspection, moist mucous membranes Neck Exam: normal inspection, non-tender, supple, full range of motion Respiratory Exam: normal breath sounds, lungs clear, airway intact, No chest tenderness, No respiratory distress Cardiovascular Exam: regular rate/rhythm, normal heart sounds, normal peripheral pulses Gastrointestinal/Abdominal Exam: soft, normal bowel sounds, No tenderness Back Exam: normal inspection, normal range of motion, No CVA tenderness, No vertebral tenderness Extremity Exam: normal inspection, normal range of motion, pelvis stable Mental Status Exam: alert, 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, cooperative leveler Exam: normal hearing, normal speech, PERRL Coordination/Gait Exam: normal finger to nose, normal gait, normal cerebellar function Motor/Sensory Exam: no motor deficit, no sensory deficit Skin Exam: normal color, warm, dry Lymphatic Exam: No adenopathy SpO2 Interpretation: normal O2 Delivery: Room Air - Course Nursing assessment & vital signs reviewed: Yes Ordered Tests: Medication Summary Discontinued Medications Generic Name Dose Route Start Last Admin Trade Name Freq PRN Reason Stop Dose Admin Hydromorphone HCl 0.5 mg 10/08/19 12:04 Hydromorphone 1 Mg/Ml Ampule IM 10/08/19 12:05 STAT ONE Promethazine HCl 25 mg 10/08/19 12:05 Phenergan 25 Mg Inj IM 10/08/19 12:06 STAT ONE - Progress Progress: re-examined, unchanged Blood Culture(s) Obtained: No Antibiotics given: No Counseled pt/family regarding: diagnosis, need for follow-up - Departure Departure Disposition: Home Clinical Impression: Migraine headache Condition: Stable Critical Care Time: No Referrals: TIM MAGUIRE MD [Primary Care Provider] - Additional Instructions: Take your migraine headache medication as prescribed. Follow-up with your prescribing physician for further management.
[2019-10-08] MEDS ORDERED: Hydromorphone 1 mg/ml Ampule IM ONE (12:04)
[2019-10-08] MEDS ORDERED: Phenergan 25 MG INJ IM ONE (12:05)
[2019-10-08] MEDS ORDERED: Phenergan 25 MG INJ ONE (12:09)
[2019-10-08] MEDS ORDERED: Hydromorphone 1 mg/ml Ampule ONE (12:10)
[2019-10-08 12:46] VITALS: BP 115/68; PULSE 59
== END 2019-10-08 12:54 | disposition home or self-care (01) ==
LOC: ED 11:51
DX: G43.909 Migraine, unspecified, not intractable, without status migrainosus (principal)
CPT/HCPCS: 96372; 99284; J1170; J2550

== ENCOUNTER 2019-11-07 05:56 | Emergency (ER) | payer OTHER ==
--- NOTE | 2019-11-07 06:06 | ERPHSYRPT ---
<MARYJANE PRICE - Last Filed: 11/07/19 06:58> - History of Present Illness Time Seen by Provider: 11/07/19 06:10 Historian: patient Exam Limitations: no limitations Physician History: Patient is a 39-year-old female with a history of morbid obesity, diabetes, congestive heart failure, hypertension presents to our ED with complaints of chest pain. Symptoms started yesterday but resolved. Upon awakening this morning patient felt well. As she began to walk she developed chest pain shortness of breath lightheadedness and dizziness. Chest pain described as an ache that radiates to her neck and left arm. Chest pain is intermittent. Chest pain occurs at rest as well. No specific worsening or improving factors. No associated nausea vomiting or diaphoresis. No syncope. Patient's last cardiac stress test was in August 2019. Patient was told "she has leaky heart valves". Her supervisor net making is Dr. Campbell (sp?) from [facility]. Patient has been taking all medications as required. She took 1 baby aspirin this morning. Patient voices no other complaints at this time. Patient advises that both her parents have significant cardiac history. Patient's mother had a heart attack at age 40. Timing/Duration: today Activities at Onset: activity Quality: aching Location: substernal Chest Pain Radiation: neck, arm Severity of Pain-Max: moderate Severity of Pain-Current: mild Modifying Factors: Improves With: nothing Associated Symptoms: shortness of breath, dizziness (lightheadedness) Prior Chest Pain/Cardiac Workup: stress test, recent hospitalization Nitro Today/Relief: no nitro taken today Aspirin Treatment Today: 81 mg x 1 Allergies/Adverse Reactions: Sulfa (Sulfonamide Antibiotics) [Sulfa(Sulfonamide Antibiotics)] Allergy (Mild, Verified 11/07/19 06:12) Rash rash Home Medications: Metformin HCl 500 mg [Glucophage 500 MG] 500 mg PO DAILY 07/14/14 [History ] Citalopram Hydrobromide 20 mg* [ceLEXa 20 MG] 20 mg PO DAILY 07/24/14 [ History] Lorazepam 0.5 mg [Ativan 0.5 MG] 0.5 mg PO TID 07/02/15 [History] Famotidine 40 mg PO BID 03/09/16 [History] Metformin HCl 500 mg [Glucophage 500 MG] 250 mg PO HS 03/09/16 [History] Diphenhydramine HCl 25 mg [Benadryl 25 mg Capsule] 25 mg PO QHS 05/28/16 [ History] Naproxen 375 mg [Naprosyn 375 mg] 375 mg PO BID 08/16/16 [History] Furosemide [Lasix] 20 mg PO DAILY 09/15/16 [History] SUMAtriptan succinate [Imitrex 50 mg] 50 mg PO DAILY PRN PRN 09/15/16 [History] Levothyroxine Sodium 75 Mcg [Synthroid 75 Mcg] 75 mcg PO DAILY 11/04/16 [ History] Rivaroxaban 10 mg Tablet [Xarelto 10 mg Tablet] 20 mg PO DAILY 08/28/17 [ History] Topiramate 25 mg [Topamax 25 MG] 50 mg PO BID 10/14/17 [History] Gabapentin 400 mg [Neurontin 400 MG] 400 mg PO BID 12/07/18 [History] Hx Tetanus, Diphtheria Vaccination/Date Given: Yes Hx Influenza Vaccination/Date Given: Yes Hx Pneumococcal Vaccination/Date Given: Yes - Review of Systems Constitutional: No Symptoms, No Fever, No Chills Eyes: No Symptoms Ears, Nose, & Throat: No Symptoms Respiratory: No Cough, No Dyspnea Cardiac: Chest Pain, No Edema, No Syncope Abdominal/Gastrointestinal: No Abdominal Pain, No Nausea, No Vomiting, No Diarrhea Genitourinary Symptoms: No Dysuria Musculoskeletal: No Symptoms, No Back Pain, No Neck Pain Skin: No Symptoms, No Rash Neurological: Dizziness, No Focal Weakness, No Sensory Changes, No Speech Changes Psychological: No Symptoms Endocrine: No Symptoms All Other Systems: Reviewed and Negative - Past Medical History Pertinent Past Medical History: Yes Neurological History: No Pertinent History ENT History: No Pertinent History Cardiac History: Congestive Heart Failure, High Cholesterol, Other Respiratory History: Asthma Endocrine Medical History: Diabetes Type II Musculoskeletal History: No Pertinent History GI Medical History: GERD History: No Pertinent History Psycho-Social History: Anxiety, Depression Female Reproductive Disorders: Fibroids Other Medical History: patient states she has ITP, sleep apnea - Past Surgical History Past Surgical History: Yes Neuro Surgical History: No Pertinent History Cardiac: No Pertinent History Respiratory: No Pertinent History Gastrointestinal: No Pertinent History Genitourinary: No Pertinent History Musculoskeletal: Other Female Surgical History: No Pertinent History Other Surgical History: bunion to right foot - Social History Smoking Status: Never smoker Exposure to second hand smoke: Yes Alcohol Use: None Drug Use: none Patient Lives Alone: No Significant Family History: no pertinent family hx, heart disease, hypertension - Female History Hx Now: No - Nursing Vital Signs Nursing Vital Signs: Initial Vital Signs Temperature 98.0 F 11/07/19 06:00 Pulse Rate 75 11/07/19 06:00 Respiratory Rate 20 11/07/19 06:00 Blood Pressure 130/70 11/07/19 06:00 O2 Sat by Pulse Oximetry 99 11/07/19 06:00 Pain Scale Pain Intensity 3 - Physical Exam General Appearance: no apparent distress, alert Eye Exam: PERRL/EOMI, eyes nml inspection, No scleral icterus Ears, Nose, Throat Exam: normal ENT inspection, TMs normal, moist mucous membranes, TM abnormal (L) Neck Exam: normal inspection, non-tender, supple, full range of motion Respiratory Exam: normal breath sounds, lungs clear, No respiratory distress Cardiovascular Exam: regular rate/rhythm, normal heart sounds, No normal peripheral pulses Gastrointestinal/Abdomen Exam: soft, No tenderness, No mass, No guarding, No pulsatile mass Pelvic Exam: not done Rectal Exam: deferred Back Exam: normal inspection, normal range of motion, No CVA tenderness, No vertebral tenderness Extremity Exam: normal inspection, normal range of motion, No oleg's sign Neurologic Exam: alert, 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, cooperative, normal mood/affect, sensation nml, No motor deficits Skin Exam: normal color, warm, dry SpO2 Interpretation: normal SpO2: 99 O2 Delivery: Room Air - Course Nursing assessment & vital signs reviewed: Yes EKG Interpreted by Me: RATE (rate 69), Sinus Rhythm, NORMAL AXIS, NORMAL INTERVALS Ordered Tests: Active Orders 24 hr Category Date Time Status Mobile Equipment Servicer STAT Care 11/07/19 06:01 Active EKG-ER Only STAT Care 11/07/19 06:00 Active IV Insertion STAT Care 11/07/19 06:00 Active Isolation, Initiate & Maintain Q4H Care 11/07/19 06:11 Active Pulse Oximetry (ED) STAT Care 11/07/19 06:00 Active CHEST 1 VIEW (PORTABLE) Stat Exams 11/07/19 06:00 Taken CBC W DIFF Stat Lab 11/07/19 06:45 Completed CMP Stat Lab 11/07/19 06:59 Completed D-DIMER QUANTITATIVE Stat Lab 11/07/19 06:59 Completed NT PRO BNP Stat Lab 11/07/19 06:59 Completed TROPONIN Q3H Lab 11/07/19 06:59 Completed TROPONIN Q3H Lab 11/07/19 09:23 Completed TROPONIN Q3H Lab 11/07/19 12:00 Ordered TROPONIN Q3H Lab 11/07/19 15:00 Ordered TROPONIN Q3H Lab 11/07/19 18:00 Ordered Urine Triage Profile Stat Lab 11/07/19 06:11 Completed Medication Summary Discontinued Medications Generic Name Dose Route Start Last Admin Trade Name Freq PRN Reason Stop Dose Admin Aspirin 162 mg 11/07/19 06:26 11/07/19 06:48 Baby Aspirin 81 Mg Chew PO 11/07/19 06:27 162 mg STAT ONE Administration Aspirin Confirm 11/07/19 06:47 Baby Aspirin 81 Mg Chew Administered 11/07/19 06:48 Dose 162 mg .ROUTE .STK-MED ONE Morphine Sulfate 4 mg 11/07/19 06:26 11/07/19 06:49 Morphine Sulfate 4 Mg Inj IV 11/07/19 06:27 4 mg STAT ONE Administration Morphine Sulfate Confirm 11/07/19 06:47 Morphine Sulfate 4 Mg Inj Administered 11/07/19 06:48 Dose 4 mg .ROUTE .STK-MED ONE Nitroglycerin 1 gm 11/07/19 06:26 11/07/19 06:49 Nitro-Bid 2% Ud Packets TOP 11/07/19 06:27 1 gm STAT ONE Administration Nitroglycerin Confirm 11/07/19 06:47 Nitro-Bid 2% Ud Packets Administered 11/07/19 06:48 Dose 1 gm .ROUTE .STK-MED ONE Ondansetron HCl 4 mg 11/07/19 07:47 11/07/19 07:59 Zofran 4 Mg/2 Ml Vial IV 11/07/19 07:48 4 mg STAT ONE Administration Ondansetron HCl Confirm 11/07/19 07:57 Zofran 4 Mg/2 Ml Vial Administered 11/07/19 07:58 Dose 4 mg .ROUTE .STK-MED ONE Lab/Rad Data: Laboratory Result Diagrams 11/07/19 06:45 11/07/19 06:59 Laboratory Results 11/07/19 11/07/19 11/07/19 Range/Units 09:23 06:59 06:59 WBC (4.0-10.5) K/mm3 RBC (4.1-5.4) M/mm3 Hgb (12.0-16.0) gm/dl Hct (35-47) % MCV (78-100) fl MCH (26-32) pg MCHC (32-36) g/dl RDW (11.5-14.0) % Plt Count (150-450) K/mm3 MPV (7.5-11.0) fl Gran % (36.0-66.0) % Eos # (Auto) (0-0.5) Absolute Lymphs (auto) (1.0-4.6) Absolute Monos (auto) (0.0-1.3) Lymphocytes % (24.0-44.0) % Monocytes % (0.0-12.0) % Eosinophils % (0.00-5.0) % Basophils % (0.0-0.4) % Absolute Granulocytes (1.4-6.9) Basophils # (0-0.4) D-Dimer 218 (215-500) ng/mL Sodium 141 (137-145) mmol/L Potassium 3.7 (3.5-5.1) mmol/L Chloride 110 H (98-107) mmol/L Carbon Dioxide 22 (22-30) mmol/L Anion Gap 12.7 (5-15) MEQ/L BUN 20 H (7-17) mg/dL Creatinine 0.69 (0.52-1.04) mg/dL Estimated GFR > 60.0 ML/MIN Glucose 155 H (74-106) mg/dL Calcium 8.6 (8.4-10.2) mg/dL Total Bilirubin 0.40 (0.2-1.3) mg/dL AST 18 (14-36) U/L ALT 21 (0-35) U/L Alkaline Phosphatase 115 (38-126) U/L Troponin I < 0.012 (0.000-0.034) ng/mL NT-Pro-B Natriuret Pep 160 (0-450) pg/mL Serum Total Protein 7.1 (6.3-8.2) g/dL Albumin 3.8 (3.5-5.0) g/dL Urine Opiates Level (NEGATIVE) Ur Methadone (NEGATIVE) Urine Barbiturates (NEGATIVE) Ur Phencyclidine (PCP) (NEGATIVE) Urine Amphetamine (NEGATIVE) U Benzodiazepine Level (NEGATIVE) Urine Cocaine (NEGATIVE) Urine Marijuana (THC) (NEGATIVE) 11/07/19 11/07/19 11/07/19 Range/Units 06:59 06:45 06:11 WBC 7.7 (4.0-10.5) K/mm3 RBC 3.53 L (4.1-5.4) M/mm3 Hgb 8.9 L (12.0-16.0) gm/dl Hct 29.4 L (35-47) % MCV 83.3 (78-100) fl MCH 25.2 L (26-32) pg MCHC 30.3 L (32-36) g/dl RDW 15.7 H (11.5-14.0) % Plt Count 271 (150-450) K/mm3 MPV 9.5 (7.5-11.0) fl Gran % 70.7 H (36.0-66.0) % Eos # (Auto) 0.10 (0-0.5) Absolute Lymphs (auto) 1.65 (1.0-4.6) Absolute Monos (auto) 0.46 (0.0-1.3) Lymphocytes % 21.6 L (24.0-44.0) % Monocytes % 6.0 (0.0-12.0) % Eosinophils % 1.3 (0.00-5.0) % Basophils % 0.4 (0.0-0.4) % Absolute Granulocytes 5.41 (1.4-6.9) Basophils # 0.03 (0-0.4) D-Dimer (215-500) ng/mL Sodium (137-145) mmol/L Potassium (3.5-5.1) mmol/L Chloride (98-107) mmol/L Carbon Dioxide (22-30) mmol/L Anion Gap (5-15) MEQ/L BUN (7-17) mg/dL Creatinine (0.52-1.04) mg/dL Estimated GFR ML/MIN Glucose (74-106) mg/dL Calcium (8.4-10.2) mg/dL Total Bilirubin (0.2-1.3) mg/dL AST (14-36) U/L ALT (0-35) U/L Alkaline Phosphatase (38-126) U/L Troponin I < 0.012 (0.000-0.034) ng/mL NT-Pro-B Natriuret Pep (0-450) pg/mL Serum Total Protein (6.3-8.2) g/dL Albumin (3.5-5.0) g/dL Urine Opiates Level NEGATIVE (NEGATIVE) Ur Methadone NEGATIVE (NEGATIVE) Urine Barbiturates NEGATIVE (NEGATIVE) Ur Phencyclidine (PCP) NEGATIVE (NEGATIVE) Urine Amphetamine NEGATIVE (NEGATIVE) U Benzodiazepine Level NEGATIVE (NEGATIVE) Urine Cocaine NEGATIVE (NEGATIVE) Urine Marijuana (THC) NEGATIVE (NEGATIVE) - Progress Progress: improved Air Movement: fair Progress Note: 11/07/19 06:58 Patient endorsed to at 0700. He will follow-up on pending labs and make final disposition. Blood Culture(s) Obtained: No Antibiotics given: No - Departure Clinical Impression: Chest pain Qualifiers: Chest pain type: unspecified Qualified Code(s): R07.9 - Chest pain, unspecified Condition: Stable Referrals: TIM MAGUIRE MD [Primary Care Provider] - Additional Instructions: Follow up with your family MD in 1 day. Return to ER for increasing chest pain or shortness of breath. <BLAS CASTILLO - Last Filed: 11/07/19 10:16> - Past Medical History Other Medical History: Cath Report 09/25/19 coronary arteries clean - Progress Air Movement: good Progress Note: 11/07/19 10:00 Picked up pt at shift change. 39yo wf w mid-sternal chest pain w radiation to neck and LUE x 3hr. Pain is sharp/constant/5 out of 10. She has had nausea/ dyspnea wo vomiting/diaphoresis. Pt has a pmh of htn/dm2/hyperlipidemia/ nebulous fh of CAD/does not smoke/denies meth-cocaine use. EKG demonstrates NSR- poor R wave progression wo acute changes. Trop and DD both wnl. Cath report from [facility] 09/25/19 w clear coronaries. 11/07/19 10:13 Troponin neg x2. With very recent neg cath, chest pain most likely non-cardiac. Will send home w PCP follow up. - Departure Departure Disposition: Home Critical Care Time: No
[2019-11-07] MEDS ORDERED: MORPHINE SULFATE 4 MG INJ ONE (06:47)
[2019-11-07] MEDS ORDERED: NITRO-BID 2% UD PACKETS ONE (06:47)
[2019-11-07] MEDS ORDERED: BABY ASPIRIN 81 MG CHEW ONE (06:47)
[2019-11-07] MEDS: BABY ASPIRIN 81 MG CHEW PO ONE (06:48)
[2019-11-07] MEDS: NITRO-BID 2% UD PACKETS TOP ONE (06:49)
[2019-11-07] MEDS: MORPHINE SULFATE 4 MG INJ IV ONE (06:49)
[2019-11-07 06:57] LABS: Absolute Neutrophil Ct (ANC) 5.41 (1.4-6.9); BASOPHIL % 0.4 % (0.0-0.4); Basophil (Absolute #) 0.03 (0-0.4); Eosinophil % 1.3 % (0.00-5.0); Hematocrit 29.4 % (35-47); Hemoglobin 8.9 gm/dl (12.0-16.0); Lymphocyte (Absolute #) 1.65 (1.0-4.6); Lymphocytes % 21.6 % (24.0-44.0); Mean Cell Volume 83.3 fl (78-100); Mean Corpuscular Hemoglobin 25.2 pg (26-32); Mean Corpuscular Hgb Concent. 30.3 g/dl (32-36); Mean Platelet Volume 9.5 fl (7.5-11.0); Monocyte (Absolute #) 0.46 (0.0-1.3); Neutrophil % 70.7 % (36.0-66.0); Platelet Count 271 K/mm3 (150-450); Red Blood Count 3.53 M/mm3 (4.1-5.4); Red Cell Distribution Width 15.7 % (11.5-14.0); White Blood Count 7.7 K/mm3 (4.0-10.5)
[2019-11-07 07:21] LABS: ALBUMIN 3.8 g/dL (3.5-5.0); ALKALINE PHOSPHATASE 115 U/L (38-126); BLOOD UREA NITROGEN 20 mg/dL (7-17); Calcium 8.6 mg/dL (8.4-10.2); Carbon Dioxide 22 mmol/L (22-30); Creatinine 1 0.69 mg/dL (0.52-1.04); Glucose 155 mg/dL (74-106); NT PRO BNP 160 pg/mL (0-450); Potassium 3.7 mmol/L (3.5-5.1); SGOT/AST 18 U/L (14-36); SGPT/ALT 21 U/L (0-35); SODIUM 141 mmol/L (137-145); Total Protein 7.1 g/dL (6.3-8.2)
[2019-11-07] MEDS ORDERED: Zofran 4 MG/2 ML VIAL ONE (07:57)
[2019-11-07] MEDS: Zofran 4 MG/2 ML VIAL IV ONE (07:59)
[2019-11-07 08:10] LABS: Amphetamine,Urine NEGATIVE (NEGATIVE); Barbiturate,Urine NEGATIVE (NEGATIVE); Benzodiazepine,Urine NEGATIVE (NEGATIVE); Cocaine,Urine NEGATIVE (NEGATIVE); Methadone,Urine NEGATIVE (NEGATIVE); Opiate,Urine NEGATIVE (NEGATIVE); PCP,Urine NEGATIVE (NEGATIVE); THC,Urine NEGATIVE (NEGATIVE)
[2019-11-07 08:26] LABS: CHLORIDE 110 mmol/L (98-107)
[2019-11-07 08:27] LABS: ANION GAP 12.7 MEQ/L (5-15)
[2019-11-07 10:29] VITALS: BP 108/63; PULSE 78; O2SAT 95
--- NOTE | 2019-11-07 16:26 | XRAY ---
AP 80 upright portable chest radiograph from 11/07/2019. Comparison: Two-view chest from 07/31/2019. Indication: 39-year-old female with chest pain. Findings: The lungs are adequately inflated. The transverse heart size is normal. The nancy and mediastinal structures appear unremarkable. No air space infiltrates, vascular congestion, pneumothorax, or pleural fluid is seen. No acute osseous process is evident. Impression: 1. No acute cardiopulmonary disease is seen.
== END 2019-11-07 10:29 | disposition home or self-care (01) ==
LOC: ED 05:56
DX: R07.9 Chest pain, unspecified (principal); I10 Essential (primary) hypertension; E11.9 Type 2 diabetes mellitus without complications; E78.5 Hyperlipidemia, unspecified; I25.10 Atherosclerotic heart disease of native coronary artery without angina pectoris
CPT/HCPCS: 36000; 36415; 71045; 80053; 80307; 83880; 84484; 85025; 85379; 93005; 93041; 94760; 96374; 96375; 99284; J2270; J2405; A9270-GY

== ENCOUNTER 2019-12-27 15:59 | Emergency (ER) | payer OTHER ==
[2019-12-27 16:17] VITALS: BP 128/80; PULSE 93; O2SAT 98
--- NOTE | 2019-12-27 16:38 | ERPHSYRPT ---
- History of Present Illness Time Seen by Provider: 12/27/19 16:19 Source: patient Exam Limitations: no limitations Patient Subjective Stated Complaint: pt reports hypertension. states a family member took her blood pressure prior to coming and it was 120/100. pt states mo nday 12/23/19 she passed out while working as a [employer] and was taken to [facility]. pt reports they found her hemoglobin to be low, denies receiving any blood products, states she stayed overnight for observation and was discharged home with a script for an iron pill. pt reports today she feels "bad", has a headache and feels tired. Triage Nursing Assessment: pt is aox3, pupils perrl, afebrile, resps easy and non labored, cap refill < 3 seconds, radial pulses strong and equal, pt skin pink warm dry. pt ambulatory to t area with no difficulties. Physician History: 39 years old morbidly obese female with history of multiple medical problems including diabetes mellitus, hypertension, hyperlipidemia, ITP, atrial fibrillation on blood thinners presented in the ER after her mom checked blood pressure which was 120/100 and made her rushed to the ER as diastolic number was high. Patient reports she feels at her baseline. She recently passed out at work and was taken to [facility] where she was found to have some anemia and was discharged on iron pills. Denies any shonna bleeding. She denies any abdominal pain chest pain palpitations or shortness of breath. Denies any nausea vomiting or diarrhea. Patient complains of generalized fatigue and tiredness which is going on for quite some time and is not any worse than usual. Her blood pressure on presentation is 128/80 without any intervention. Allergies/Adverse Reactions: Sulfa (Sulfonamide Antibiotics) [Sulfa(Sulfonamide Antibiotics)] Allergy (Mild, Verified 12/27/19 16:17) Rash rash Home Medications: Metformin HCl 500 mg [Glucophage 500 MG] 500 mg PO DAILY 07/14/14 [History] Citalopram Hydrobromide 20 mg* [ceLEXa 20 MG] 20 mg PO DAILY 07/24/14 [History] Lorazepam 0.5 mg [Ativan 0.5 MG] 0.5 mg PO TID 07/02/15 [History] Famotidine 40 mg PO BID 03/09/16 [History] Metformin HCl 500 mg [Glucophage 500 MG] 250 mg PO HS 03/09/16 [History] Diphenhydramine HCl 25 mg [Benadryl 25 mg Capsule] 25 mg PO QHS 05/28/16 [History] Naproxen 375 mg [Naprosyn 375 mg] 375 mg PO BID 08/16/16 [History] Furosemide [Lasix] 20 mg PO DAILY 09/15/16 [History] SUMAtriptan succinate [Imitrex 50 mg] 50 mg PO DAILY PRN PRN 09/15/16 [History] Levothyroxine Sodium 75 Mcg [Synthroid 75 Mcg] 75 mcg PO DAILY 11/04/16 [History] Rivaroxaban 10 mg Tablet [Xarelto 10 mg Tablet] 20 mg PO DAILY 08/28/17 [History] Topiramate 25 mg [Topamax 25 MG] 50 mg PO BID 10/14/17 [History] Gabapentin 400 mg [Neurontin 400 MG] 400 mg PO BID 12/07/18 [History] Hx Tetanus, Diphtheria Vaccination/Date Given: Yes Hx Influenza Vaccination/Date Given: Yes Hx Pneumococcal Vaccination/Date Given: No Immunizations Up to Date: Yes Travel Risk - International Travel Have you traveled outside of the country in past 3 weeks: No - Coronavirus Screening Are you exhibiting any of the following symptoms?: No Close contact with a COVID-19 positive Pt in past 14-21 Days: No - Review of Systems Constitutional: Fatigue, Weakness Eyes: No Symptoms Ears, Nose, & Throat: No Symptoms Respiratory: No Symptoms Cardiac: No Symptoms Abdominal/Gastrointestinal: No Symptoms Genitourinary Symptoms: No Symptoms Musculoskeletal: No Symptoms Skin: No Symptoms Neurological: No Symptoms Psychological: No Symptoms Endocrine: No Symptoms Hematologic/Lymphatic: No Symptoms Immunological/Allergic: No Symptoms - Past Medical History Pertinent Past Medical History: Yes Neurological History: No Pertinent History ENT History: No Pertinent History Cardiac History: Congestive Heart Failure, High Cholesterol, Other Respiratory History: Asthma Endocrine Medical History: Diabetes Type II Musculoskeletal History: No Pertinent History GI Medical History: GERD History: No Pertinent History Psycho-Social History: Anxiety, Depression Female Reproductive Disorders: Fibroids Other Medical History: Cath Report 09/25/19 coronary arteries clean - Past Surgical History Past Surgical History: Yes Neuro Surgical History: No Pertinent History Cardiac: No Pertinent History Respiratory: No Pertinent History Gastrointestinal: No Pertinent History Genitourinary: No Pertinent History Musculoskeletal: Other Female Surgical History: No Pertinent History Other Surgical History: bunion to right foot - Social History Smoking Status: Never smoker Exposure to second hand smoke: Yes Alcohol Use: None Drug Use: none Patient Lives Alone: No Significant Family History: no pertinent family hx, heart disease, hypertension - Female History Hx Last Menstrual Period: 12/27/19 Hx Now: No - Nursing Vital Signs Nursing Vital Signs: Initial Vital Signs Temperature 98.7 F 12/27/19 16:05 Pulse Rate 93 H 12/27/19 16:05 Respiratory Rate 20 12/27/19 16:05 Blood Pressure 128/80 12/27/19 16:05 O2 Sat by Pulse Oximetry 98 12/27/19 16:05 Pain Scale Pain Intensity 10 - Physical Exam General Appearance: no apparent distress, alert, anxiety Eye Exam: PERRL/EOMI, eyes nml inspection Ears, Nose, Throat Exam: normal ENT inspection, TMs normal, pharynx normal Neck Exam: normal inspection, non-tender, supple, full range of motion Respiratory Exam: normal breath sounds, lungs clear Cardiovascular Exam: regular rate/rhythm, normal heart sounds Gastrointestinal/Abdomen Exam: soft Extremity Exam: normal inspection, normal range of motion Neurologic Exam: alert, 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, 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 On presentation she has a BP 128/80. She is not in any distress. She has a chronic generalized weakness and tiredness which I believe is secondary to her anemia. She is advised to continue with iron pills. I have offered her baseline labs including EKG chest x-ray and some IV fluid but patient states "I came here to satisfy my mother and do not think I need anything in the ER and I do not have any symptoms". She is being discharged with outpatient follow-up. Signs symptoms of worsening needing return to ER which he seems understanding. - Departure Departure Disposition: Home Clinical Impression: Morbid obesity, Chronic anemia Hypertension Qualifiers: Hypertension type: unspecified Qualified Code(s): I10 - Essential (primary) hypertension Condition: Stable Critical Care Time: No Referrals: TIM MAGUIRE MD [Primary Care Provider] - (1-2 days for re evaluation) Instructions: High Blood Pressure (DC) Additional Instructions: Follow-up with primary care/cardiology for reevaluation. Return to ER for any worsening. Treat your blood pressure regularly and keep a log and take it to your doctor.
== END 2019-12-27 16:48 | disposition home or self-care (01) ==
LOC: ED 15:59
DX: E66.01 Morbid (severe) obesity due to excess calories (principal); D64.9 Anemia, unspecified; I10 Essential (primary) hypertension; E11.9 Type 2 diabetes mellitus without complications; E78.5 Hyperlipidemia, unspecified; Z86.79 Personal history of other diseases of the circulatory system; Z79.01 Long term (current) use of anticoagulants; Z79.4 Long term (current) use of insulin; Z79.899 Other long term (current) drug therapy
CPT/HCPCS: 99283

== ENCOUNTER 2020-03-02 21:33 | Emergency (ER) | payer OTHER ==
[2020-03-02 22:25] LABS: Absolute Neutrophil Ct (ANC) 4.42 (1.4-6.9); BASOPHIL % 0.3 % (0.0-0.4); Basophil (Absolute #) 0.02 (0-0.4); Eosinophil % 2.4 % (0.00-5.0); Eosinophil (Absolute #) 0.16 (0-0.5); Hematocrit 32.4 % (35-47); Hemoglobin 9.8 gm/dl (12.0-16.0); Lymphocyte (Absolute #) 1.73 (1.0-4.6); Lymphocytes % 25.6 % (24.0-44.0); Mean Cell Volume 83.5 fl (78-100); Mean Corpuscular Hemoglobin 25.3 pg (26-32); Mean Corpuscular Hgb Concent. 30.2 g/dl (32-36); Mean Platelet Volume 9.9 fl (7.5-11.0); Monocyte (Absolute #) 0.44 (0.0-1.3); Monocytes % 6.5 % (0.0-12.0); Neutrophil % 65.2 % (36.0-66.0); Platelet Count 280 K/mm3 (150-450); Red Blood Count 3.88 M/mm3 (4.1-5.4); Red Cell Distribution Width 16.7 % (11.5-14.0); White Blood Count 6.8 K/mm3 (4.0-10.5)
[2020-03-02 22:29] LABS: ALBUMIN 3.9 g/dL (3.5-5.0); ALKALINE PHOSPHATASE 130 U/L (38-126); ANION GAP 8.1 MEQ/L (5-15); BLOOD UREA NITROGEN 24 mg/dL (7-17); CHLORIDE 109 mmol/L (98-107); Calcium 8.8 mg/dL (8.4-10.2); Carbon Dioxide 24 mmol/L (22-30); Creatinine 1 0.85 mg/dL (0.52-1.04); EST GLOMERULAR FILTRATION RATE > 60.0 ML/MIN; Glucose 173 mg/dL (74-106); Potassium 4.1 mmol/L (3.5-5.1); SGOT/AST 22 U/L (14-36); SGPT/ALT 33 U/L (0-35); SODIUM 138 mmol/L (137-145)
--- NOTE | 2020-03-02 22:39 | ERPHSYRPT ---
- History of Present Illness Time Seen by Provider: 03/02/20 22:20 Historian: patient Exam Limitations: no limitations Patient Subjective Stated Complaint: pt c/o chest pain since yesterday at 1800 Triage Nursing Assessment: pt c/o chest pain off/sob and on since 1800 yesterday, dizziness, light headed, nausea occured today. Lungs clear, heart t ones reg. Abd lg, obese with active bx x4 quad, nontender. Physician History: Is a 39-year-old white obese female with a history of congestive heart failure and diabetes and presents with left anterior chest pain that was intermittent starting at 1800 on 03/01/2020. The pain is described as sharp and at times pressure with radiation to her left shoulder and arm. What made her concerned was that there was associated lightheadedness with this. Patient decided to go to work anyway thinking it might resolve on its own. It did not end became worse. She therefore came to the emergency department for evaluation. Patient states she is never had a myocardial infarction and is never been diagnosed with coronary artery disease. Patient's legal investigator is Dr. Marco Francis of [facility]. She recently wore a Holter monitor for approximately 1 month. She has not been back for her follow-up appointment yet. Timing/Duration: yesterday, intermittent, gradual onset, worse Activities at Onset: none Quality: pressure, sharpness Location: other (Anterior chest) Chest Pain Radiation: arm (What was her level of) Severity of Pain-Max: moderate Severity of Pain-Current: moderate Modifying Factors: Improves With: aspirin (1 baby aspirin daily) Prior Chest Pain/Cardiac Workup: echocardiography (Patient has a leaky heart valve per her report) Nitro Today/Relief: no nitro taken today Aspirin Treatment Today: 81 mg x 1, provided at home Allergies/Adverse Reactions: Sulfa (Sulfonamide Antibiotics) [Sulfa(Sulfonamide Antibiotics)] Allergy (Mild, Verified 03/02/20 21:44) Rash rash Home Medications: Metformin HCl 500 mg [Glucophage 500 MG] 500 mg PO DAILY 07/14/14 [History] Citalopram Hydrobromide 20 mg* [ceLEXa 20 MG] 20 mg PO DAILY 07/24/14 [History] Lorazepam 0.5 mg [Ativan 0.5 MG] 0.5 mg PO TID 07/02/15 [History] Famotidine 40 mg PO BID 03/09/16 [History] Metformin HCl 500 mg [Glucophage 500 MG] 250 mg PO DAILY 03/09/16 [History] Diphenhydramine HCl 25 mg [Benadryl 25 mg Capsule] 25 mg PO QAM 05/28/16 [History] Naproxen 375 mg [Naprosyn 375 mg] 375 mg PO BID 08/16/16 [History] Furosemide [Lasix] 20 mg PO UD 09/15/16 [History] SUMAtriptan succinate [Imitrex 50 mg] 50 mg PO DAILY PRN PRN 09/15/16 [History] Levothyroxine Sodium 75 Mcg [Synthroid 75 Mcg] 75 mcg PO DAILY 11/04/16 [History] Rivaroxaban 10 mg Tablet [Xarelto 10 mg Tablet] 20 mg PO DAILY 08/28/17 [History] Topiramate 25 mg [Topamax 25 MG] 50 mg PO BID 10/14/17 [History] Gabapentin 400 mg [Neurontin 400 MG] 400 mg PO BID 12/07/18 [History] Aspirin 81 mg PO DAILY 03/02/20 [History] Hx Tetanus, Diphtheria Vaccination/Date Given: Yes Hx Influenza Vaccination/Date Given: Yes Hx Pneumococcal Vaccination/Date Given: No Immunizations Up to Date: Yes Travel Risk - International Travel Have you traveled outside of the country in past 3 weeks: No - Coronavirus Screening Are you exhibiting any of the following symptoms?: No Close contact with a COVID-19 positive Pt in past 14-21 Days: No - Review of Systems Constitutional: No Symptoms Eyes: No Symptoms Ears, Nose, & Throat: No Symptoms Respiratory: No Symptoms Cardiac: Chest Pain Abdominal/Gastrointestinal: No Symptoms, No Abdominal Pain, No Nausea, No Vomiting Genitourinary Symptoms: No Symptoms Musculoskeletal: No Symptoms Skin: No Symptoms Neurological: No Symptoms Psychological: No Symptoms Endocrine: No Symptoms Hematologic/Lymphatic: No Symptoms Immunological/Allergic: No Symptoms All Other Systems: Reviewed and Negative - Past Medical History Pertinent Past Medical History: Yes Neurological History: No Pertinent History ENT History: No Pertinent History Cardiac History: Congestive Heart Failure, High Cholesterol, Other Respiratory History: Asthma Endocrine Medical History: Diabetes Type II Musculoskeletal History: No Pertinent History GI Medical History: GERD History: No Pertinent History Psycho-Social History: Anxiety, Depression Female Reproductive Disorders: Fibroids Other Medical History: Cath Report 09/25/19 coronary arteries clean, leaky heart valve - Past Surgical History Past Surgical History: Yes Neuro Surgical History: No Pertinent History Cardiac: Cardiac Catheterization Respiratory: No Pertinent History Gastrointestinal: No Pertinent History Genitourinary: No Pertinent History Musculoskeletal: Other Female Surgical History: No Pertinent History Other Surgical History: bunion to right foot - Social History Smoking Status: Never smoker Exposure to second hand smoke: No Alcohol Use: None Drug Use: none Patient Lives Alone: No Significant Family History: no pertinent family hx, heart disease, hypertension - Female History Hx Now: No - Nursing Vital Signs Nursing Vital Signs: Initial Vital Signs Temperature 97.7 F 03/02/20 21:34 Pulse Rate 63 03/02/20 21:34 Respiratory Rate 20 03/02/20 21:34 Blood Pressure 122/67 03/02/20 21:34 O2 Sat by Pulse Oximetry 99 03/02/20 21:34 Pain Scale Pain Intensity 4 - Physical Exam General Appearance: no apparent distress, alert, anxiety, obese Eye Exam: PERRL/EOMI, eyes nml inspection Ears, Nose, Throat Exam: normal ENT inspection, moist mucous membranes Neck Exam: normal inspection, non-tender, supple, full range of motion Respiratory Exam: normal breath sounds, chest tenderness, lungs clear, No respiratory distress, No airway intact Cardiovascular Exam: regular rate/rhythm, normal heart sounds, normal peripheral pulses Gastrointestinal/Abdomen Exam: soft, normal bowel sounds, No tenderness Pelvic Exam: not done Rectal Exam: not done Back Exam: normal inspection, normal range of motion, No CVA tenderness, No vertebral tenderness Extremity Exam: normal inspection, normal range of motion, pelvis stable Neurologic Exam: alert, 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, 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 STAT Care 03/02/20 22:10 Active EKG-ER Only STAT Care 03/02/20 22:09 Active IV Insertion STAT Care 03/02/20 22:09 Active CHEST 1 VIEW (PORTABLE) Stat Exams 03/02/20 22:10 Taken CBC W DIFF Stat Lab 03/02/20 22:00 Completed CMP Stat Lab 03/02/20 22:00 Completed D-DIMER QUANTITATIVE Stat Lab 03/02/20 22:00 Completed TROPONIN Q3H Lab 03/02/20 22:15 Completed TROPONIN Q3H Lab 03/03/20 01:14 Completed TROPONIN Q3H Lab 03/03/20 04:15 Ordered TROPONIN Q3H Lab 03/03/20 07:15 Ordered TROPONIN Q3H Lab 03/03/20 10:15 Ordered Medication Summary Discontinued Medications Generic Name Dose Route Start Last Admin Trade Name Paxton PRN Reason Stop Dose Admin Aspirin 324 mg 03/02/20 22:46 03/02/20 22:56 Baby Aspirin 81 Mg Chew PO 03/02/20 22:47 324 mg STAT ONE Administration Aspirin Confirm 03/02/20 22:54 Baby Aspirin 81 Mg Chew Administered 03/02/20 22:55 Dose 324 mg .ROUTE .STK-MED ONE Morphine Sulfate 4 mg 03/02/20 22:46 03/02/20 22:58 Morphine Sulfate 4 Mg Inj IV 03/02/20 22:47 4 mg STAT ONE Administration Morphine Sulfate Confirm 03/02/20 22:54 Morphine Sulfate 4 Mg Inj Administered 03/02/20 22:55 Dose 4 mg .ROUTE .STK-MED ONE Ondansetron HCl 4 mg 03/02/20 22:46 03/02/20 22:58 Zofran 4 Mg/2 Ml Vial IV 03/02/20 22:47 4 mg STAT ONE Administration Ondansetron HCl Confirm 03/02/20 22:53 Zofran 4 Mg/2 Ml Vial Administered 03/02/20 22:54 Dose 4 mg .ROUTE .STK-MED ONE Lab/Rad Data: Laboratory Result Diagrams 03/02/20 22:00 03/02/20 22:00 Laboratory Results 03/03/20 03/02/20 03/02/20 Range/Units 01:14 22:15 22:00 WBC (4.0-10.5) K/mm3 RBC (4.1-5.4) M/mm3 Hgb (12.0-16.0) gm/dl Hct (35-47) % MCV (78-100) fl MCH (26-32) pg MCHC (32-36) g/dl RDW (11.5-14.0) % Plt Count (150-450) K/mm3 MPV (7.5-11.0) fl Gran % (36.0-66.0) % Eos # (Auto) (0-0.5) Absolute Lymphs (auto) (1.0-4.6) Absolute Monos (auto) (0.0-1.3) Lymphocytes % (24.0-44.0) % Monocytes % (0.0-12.0) % Eosinophils % (0.00-5.0) % Basophils % (0.0-0.4) % Absolute Granulocytes (1.4-6.9) Basophils # (0-0.4) D-Dimer < 215 L (215-500) ng/mL Sodium (137-145) mmol/L Potassium (3.5-5.1) mmol/L Chloride (98-107) mmol/L Carbon Dioxide (22-30) mmol/L Anion Gap (5-15) MEQ/L BUN (7-17) mg/dL Creatinine (0.52-1.04) mg/dL Estimated GFR ML/MIN Glucose (74-106) mg/dL Calcium (8.4-10.2) mg/dL Total Bilirubin (0.2-1.3) mg/dL AST (14-36) U/L ALT (0-35) U/L Alkaline Phosphatase (38-126) U/L Troponin I < 0.012 < 0.012 (0.000-0.034) ng/mL Serum Total Protein (6.3-8.2) g/dL Albumin (3.5-5.0) g/dL 09/13/20 09/13/20 Range/Units 22:00 22:00 WBC 6.8 (4.0-10.5) K/mm3 RBC 3.88 L (4.1-5.4) M/mm3 Hgb 9.8 L (12.0-16.0) gm/dl Hct 32.4 L (35-47) % MCV 83.5 (78-100) fl MCH 25.3 L (26-32) pg MCHC 30.2 L (32-36) g/dl RDW 16.7 H (11.5-14.0) % Plt Count 280 (150-450) K/mm3 MPV 9.9 (7.5-11.0) fl Gran % 65.2 (36.0-66.0) % Eos # (Auto) 0.16 (0-0.5) Absolute Lymphs (auto) 1.73 (1.0-4.6) Absolute Monos (auto) 0.44 (0.0-1.3) Lymphocytes % 25.6 (24.0-44.0) % Monocytes % 6.5 (0.0-12.0) % Eosinophils % 2.4 (0.00-5.0) % Basophils % 0.3 (0.0-0.4) % Absolute Granulocytes 4.42 (1.4-6.9) Basophils # 0.02 (0-0.4) D-Dimer (215-500) ng/mL Sodium 138 (137-145) mmol/L Potassium 4.1 (3.5-5.1) mmol/L Chloride 109 H (98-107) mmol/L Carbon Dioxide 24 (22-30) mmol/L Anion Gap 8.1 (5-15) MEQ/L BUN 24 H (7-17) mg/dL Creatinine 0.85 (0.52-1.04) mg/dL Estimated GFR > 60.0 ML/MIN Glucose 173 H (74-106) mg/dL Calcium 8.8 (8.4-10.2) mg/dL Total Bilirubin 0.30 (0.2-1.3) mg/dL AST 22 (14-36) U/L ALT 33 (0-35) U/L Alkaline Phosphatase 130 H (38-126) U/L Troponin I (0.000-0.034) ng/mL Serum Total Protein 7.0 (6.3-8.2) g/dL Albumin 3.9 (3.5-5.0) g/dL - Progress Progress: re-examined Air Movement: good Progress Note: 03/03/20 01:29 Medical decision making: Patient denies any chest pain at this time. We are awaiting the 3-hour troponin. Patient's vital signs are stable. It is int eresting to note that when she falls asleep her heart rate does drop in the high 40s when we wake her up she has an increase in her heart rate up to the low 60s. Patient will be discharged to home if her second troponin is normal. She will call her legal investigator this morning to make arrangements for that follow-up appointment. Blood Culture(s) Obtained: No Antibiotics given: No Counseled pt/family regarding: lab results, diagnosis, need for follow-up, rad results - Departure Departure Disposition: Home Clinical Impression: Chest pain, Dizziness Condition: Stable Critical Care Time: No Referrals: TIM MAGUIRE MD [Primary Care Provider] - Additional Instructions: Take your medication as prescribed. Call your legal investigator this morning at 8:30 AM and let them know that you were in the emergency department having chest pain and dizziness. Make them aware that intermittently your heart rate dropped into the 40s range when you are sleeping.
[2020-03-02] MEDS ORDERED: Zofran 4 MG/2 ML VIAL IV ONE (22:46)
[2020-03-02] MEDS ORDERED: MORPHINE SULFATE 4 MG INJ IV ONE (22:46)
[2020-03-02] MEDS ORDERED: BABY ASPIRIN 81 MG CHEW PO ONE (22:46)
[2020-03-02] MEDS ORDERED: Zofran 4 MG/2 ML VIAL ONE (22:53)
[2020-03-02] MEDS ORDERED: MORPHINE SULFATE 4 MG INJ ONE (22:54)
[2020-03-02] MEDS ORDERED: BABY ASPIRIN 81 MG CHEW ONE (22:54)
[2020-03-03 01:48] VITALS: BP 107/85; PULSE 56; O2SAT 98
--- NOTE | 2020-03-03 09:33 | XRAY ---
Exam: AP upright portable chest film from 03/02/2020. Comparison: AP 80 upright portable chest film from 11/07/2019. Indication: Chest pain. Findings: The heart size is within normal limits for this AP portable technique. The nancy and mediastinal structures appear unremarkable. There is adequate inflation of the lungs. No air space infiltrates, vascular congestion, pneumothorax, or pleural fluid is seen. The patient is noted to be large. No acute osseous process is seen. Impression: 1. No air space infiltrates, heart failure/pulmonary edema, or other acute cardiopulmonary disease is seen. The findings are essentially unchanged from 11/07/2019.
== END 2020-03-03 01:55 | disposition home or self-care (01) ==
LOC: ED 21:33
DX: R07.9 Chest pain, unspecified (principal); R42 Dizziness and giddiness
CPT/HCPCS: 36000; 36415; 71045; 80053; 84484; 85025; 85379; 93005; 93041; 96374; 96375; 99284; J2270; J2405; A9270-GY

== ENCOUNTER 2020-03-27 18:44 | Emergency (ER) | payer OTHER ==
[2020-03-27 19:12] LABS: Absolute Neutrophil Ct (ANC) 5.41 (1.4-6.9); BASOPHIL % 0.4 % (0.0-0.4); Basophil (Absolute #) 0.03 (0-0.4); Eosinophil % 1.6 % (0.00-5.0); Eosinophil (Absolute #) 0.13 (0-0.5); Hematocrit 31.3 % (35-47); Hemoglobin 9.7 gm/dl (12.0-16.0); Lymphocyte (Absolute #) 2.19 (1.0-4.6); Lymphocytes % 26.4 % (24.0-44.0); Mean Cell Volume 83.5 fl (78-100); Mean Corpuscular Hemoglobin 25.9 pg (26-32); Monocyte (Absolute #) 0.53 (0.0-1.3); Monocytes % 6.4 % (0.0-12.0); Neutrophil % 65.2 % (36.0-66.0); Platelet Count 287 K/mm3 (150-450); Red Blood Count 3.75 M/mm3 (4.1-5.4); White Blood Count 8.3 K/mm3 (4.0-10.5)
[2020-03-27 19:51] LABS: ALBUMIN 3.9 g/dL (3.5-5.0); ALKALINE PHOSPHATASE 142 U/L (38-126); ANION GAP 11.5 MEQ/L (5-15); BLOOD UREA NITROGEN 30 mg/dL (7-17); CHLORIDE 108 mmol/L (98-107); Calcium 9.5 mg/dL (8.4-10.2); Carbon Dioxide 22 mmol/L (22-30); Creatinine 1 0.76 mg/dL (0.52-1.04); EST GLOMERULAR FILTRATION RATE > 60.0 ML/MIN; Glucose 148 mg/dL (74-106); NT PRO BNP 116 pg/mL (0-450); Potassium 3.5 mmol/L (3.5-5.1); SGOT/AST 24 U/L (14-36); SGPT/ALT 45 U/L (0-35); SODIUM 138 mmol/L (137-145); Total Protein 7.1 g/dL (6.3-8.2)
[2020-03-27] MEDS ORDERED: ZOFRAN ODT 4 MG PO ONE (20:16)
[2020-03-27] MEDS ORDERED: TYLENOL 325 MG PO ONE (20:16)
[2020-03-27] MEDS ORDERED: TYLENOL 325 MG ONE (20:23)
[2020-03-27] MEDS ORDERED: ZOFRAN ODT 4 MG ONE (20:23)
--- NOTE | 2020-03-27 21:48 | ERPHSYRPT ---
- History of Present Illness Time Seen by Provider: 03/27/20 18:50 Historian: patient Exam Limitations: no limitations Patient Subjective Stated Complaint: reports last evening at work she began with chest pressure, starts in the center of her chest and radiates under her left breast. reports she finished work and went home to sleep, states she woke today and after her shower she started to have pain again that was not relieved by nitro. pt also reports increased shortness of breath from normal. pt reports she works at an [employer] and is tested weekly for covid. Triage Nursing Assessment: pt is aox3, pupils perrl, afebrile, pt is short of breath with minimal exertion, pt lungs are clear, radial pulses strong and equal, cap refill < 3 seconds, pt skin pink warm dry. Physician History: Patient is a 39-year-old female presents to our ED with complaints of chest pressure. Patient has this same type of chest pressure chronically. She has been dealing with it for months. Symptoms are worse yesterday evening. Patient describes the pain at the center of her chest that radiates to her left breast. Symptoms are constant. Symptoms are associated with shortness of breath. No nausea or vomiting. No diarrhea. No rash. No fevers. Symptoms are mild to moderate in intensity. 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 However she has tested weekly for COVID. Patient tested negative. Patient take aspirin prior to arrival. Patient voices no other complaints concerns at this time. Timing/Duration: yesterday Activities at Onset: none Quality: aching Location: substernal Severity of Pain-Max: moderate Severity of Pain-Current: moderate Modifying Factors: Improves With: nothing. Worsens With: coughing, morphine, nitroglycerin, palpation, sitting up, change in position Associated Symptoms: denies symptoms, No nausea, No vomiting, No palpitations, No diaphoresis, No fever, No weakness, No syncope, No dizziness Prior Chest Pain/Cardiac Workup: no prior chest pain Aspirin Treatment Today: 81 mg x 1 Allergies/Adverse Reactions: Sulfa (Sulfonamide Antibiotics) [Sulfa(Sulfonamide Antibiotics)] Allergy (Mild, Verified 03/27/20 18:57) Rash rash Home Medications: Metformin HCl 500 mg [Glucophage 500 MG] 500 mg PO DAILY 07/14/14 [History] Citalopram Hydrobromide 20 mg* [ceLEXa 20 MG] 20 mg PO DAILY 07/24/14 [History] Lorazepam 0.5 mg [Ativan 0.5 MG] 0.5 mg PO TID 07/02/15 [History] Famotidine 40 mg PO BID 03/09/16 [History] Metformin HCl 500 mg [Glucophage 500 MG] 250 mg PO DAILY 03/09/16 [History] Diphenhydramine HCl 25 mg [Benadryl 25 mg Capsule] 25 mg PO QAM 05/28/16 [History] Naproxen 375 mg [Naprosyn 375 mg] 375 mg PO BID 08/16/16 [History] Furosemide [Lasix] 20 mg PO UD 09/15/16 [History] SUMAtriptan succinate [Imitrex 50 mg] 50 mg PO DAILY PRN PRN 09/15/16 [History] Levothyroxine Sodium 75 Mcg [Synthroid 75 Mcg] 75 mcg PO DAILY 11/04/16 [History] Rivaroxaban 10 mg Tablet [Xarelto 10 mg Tablet] 20 mg PO DAILY 08/28/17 [History] Topiramate 25 mg [Topamax 25 MG] 50 mg PO BID 10/14/17 [History] Gabapentin 400 mg [Neurontin 400 MG] 400 mg PO BID 12/07/18 [History] Aspirin 81 mg PO DAILY 03/02/20 [History] Hx Tetanus, Diphtheria Vaccination/Date Given: Yes Hx Influenza Vaccination/Date Given: Yes Hx Pneumococcal Vaccination/Date Given: Yes Immunizations Up to Date: Yes Travel Risk - International Travel Have you traveled outside of the country in past 3 weeks: No - Coronavirus Screening Are you exhibiting any of the following symptoms?: No Close contact with a COVID-19 positive Pt in past 14-21 Days: No - Review of Systems Constitutional: No Symptoms, No Fever, No Chills Eyes: No Symptoms Ears, Nose, & Throat: No Symptoms Respiratory: No Symptoms, No Cough, No Dyspnea Cardiac: No Symptoms, No Chest Pain, No Edema, No Syncope Abdominal/Gastrointestinal: No Symptoms, No Abdominal Pain, No Nausea, No Vomit ing, No Diarrhea Genitourinary Symptoms: No Symptoms, No Dysuria Musculoskeletal: No Symptoms, No Back Pain, No Neck Pain Skin: No Symptoms, No Rash Neurological: No Symptoms, No Dizziness, No Focal Weakness, No Sensory Changes Psychological: No Symptoms Endocrine: No Symptoms Hematologic/Lymphatic: No Symptoms Immunological/Allergic: No Symptoms All Other Systems: Reviewed and Negative - Past Medical History Pertinent Past Medical History: Yes Neurological History: No Pertinent History ENT History: No Pertinent History Cardiac History: Congestive Heart Failure, High Cholesterol, Other Respiratory History: Asthma Endocrine Medical History: Diabetes Type II Musculoskeletal History: No Pertinent History GI Medical History: GERD History: No Pertinent History Psycho-Social History: Anxiety, Depression Female Reproductive Disorders: Fibroids Other Medical History: Cath Report 09/25/19 coronary arteries clean, leaky heart valve - Past Surgical History Past Surgical History: Yes Neuro Surgical History: No Pertinent History Cardiac: Cardiac Catheterization Respiratory: No Pertinent History Gastrointestinal: No Pertinent History Genitourinary: No Pertinent History Musculoskeletal: Other Female Surgical History: No Pertinent History Other Surgical History: bunion to right foot - Social History Smoking Status: Never smoker Exposure to second hand smoke: No Alcohol Use: None Drug Use: none Patient Lives Alone: No Significant Family History: no pertinent family hx, heart disease, hypertension - Female History Hx Now: No - Nursing Vital Signs Nursing Vital Signs: Initial Vital Signs Temperature 98.2 F 03/27/20 18:45 Pulse Rate 96 H 03/27/20 18:45 Respiratory Rate 24 03/27/20 18:45 Blood Pressure 120/61 03/27/20 18:45 O2 Sat by Pulse Oximetry 98 03/27/20 18:45 Pain Scale Pain Intensity 3 - Physical Exam General Appearance: no apparent distress, alert Eye Exam: PERRL/EOMI, eyes nml inspection Ears, Nose, Throat Exam: normal ENT inspection, moist mucous membranes Neck Exam: normal inspection, non-tender, supple, full range of motion Respiratory Exam: normal breath sounds, lungs clear, No respiratory distress Cardiovascular Exam: regular rate/rhythm, normal heart sounds Gastrointestinal/Abdomen Exam: soft, No tenderness, No mass Back Exam: normal inspection, No CVA tenderness, No vertebral tenderness Extremity Exam: normal inspection, normal range of motion Neurologic Exam: alert, 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, cooperative, normal mood/affect, sensation nml, No motor deficits Skin Exam: normal color, warm, dry SpO2 Interpretation: normal SpO2: 97 O2 Delivery: Room Air - Course Nursing assessment & vital signs reviewed: Yes EKG Interpreted by Me: RATE ([id number]), Sinus Rhythm, NORMAL AXIS, NORMAL INTERVALS Ordered Tests: Active Orders 24 hr Category Date Time Status Engineer Fishing Vessel STAT Care 03/27/20 19:03 Active EKG-ER Only STAT Care 03/27/20 19:02 Active IV Insertion STAT Care 03/27/20 19:02 Active Pulse Oximetry (ED) STAT Care 03/27/20 19:02 Active CHEST 1 VIEW (PORTABLE) Stat Exams 03/27/20 19:03 Taken CBC W DIFF Stat Lab 03/27/20 19:08 Completed CMP Stat Lab 03/27/20 19:08 Completed D-DIMER QUANTITATIVE Stat Lab 03/27/20 19:08 Completed HCG,QUALITATIVE URINE Stat Lab 03/27/20 20:20 Completed LIPASE Stat Lab 03/27/20 22:15 Completed NT PRO BNP Stat Lab 03/27/20 19:08 Completed TROPONIN Q3H Lab 03/27/20 19:08 Completed TROPONIN Q3H Lab 03/27/20 22:06 Completed TROPONIN Q3H Lab 03/28/20 01:15 Ordered TROPONIN Q3H Lab 03/28/20 04:15 Ordered TROPONIN Q3H Lab 03/28/20 07:15 Ordered Medication Summary Discontinued Medications Generic Name Dose Route Start Last Admin Trade Name Freq PRN Reason Stop Dose Admin Acetaminophen 975 mg 03/27/20 20:16 03/27/20 20:24 Tylenol 325 Mg PO 03/27/20 20:17 975 mg STAT ONE Administration Acetaminophen Confirm 03/27/20 20:23 Tylenol 325 Mg Administered 03/27/20 20:24 Dose 975 mg .ROUTE .STK-MED ONE Ondansetron HCl 4 mg 03/27/20 20:16 03/27/20 20:24 Zofran Odt 4 Mg PO 03/27/20 20:17 4 mg STAT ONE Administration Ondansetron HCl Confirm 03/27/20 20:23 Zofran Odt 4 Mg Administered 03/27/20 20:24 Dose 4 mg .ROUTE .STK-MED ONE Lab/Rad Data: Laboratory Result Diagrams 03/27/20 19:08 03/27/20 19:08 Laboratory Results 03/27/20 03/27/20 03/27/20 Range/Units 22:15 22:06 20:20 WBC (4.0-10.5) K/mm3 RBC (4.1-5.4) M/mm3 Hgb (12.0-16.0) gm/dl Hct (35-47) % MCV (78-100) fl MCH (26-32) pg MCHC (32-36) g/dl RDW (11.5-14.0) % Plt Count (150-450) K/mm3 MPV (7.5-11.0) fl Gran % (36.0-66.0) % Eos # (Auto) (0-0.5) Absolute Lymphs (auto) (1.0-4.6) Absolute Monos (auto) (0.0-1.3) Lymphocytes % (24.0-44.0) % Monocytes % (0.0-12.0) % Eosinophils % (0.00-5.0) % Basophils % (0.0-0.4) % Absolute Granulocytes (1.4-6.9) Basophils # (0-0.4) D-Dimer (215-500) ng/mL Sodium (137-145) mmol/L Potassium (3.5-5.1) mmol/L Chloride (98-107) mmol/L Carbon Dioxide (22-30) mmol/L Anion Gap (5-15) MEQ/L BUN (7-17) mg/dL Creatinine (0.52-1.04) mg/dL Estimated GFR ML/MIN Glucose (74-106) mg/dL Calcium (8.4-10.2) mg/dL Total Bilirubin (0.2-1.3) mg/dL AST (14-36) U/L ALT (0-35) U/L Alkaline Phosphatase (38-126) U/L Troponin I < 0.012 (0.000-0.034) ng/mL NT-Pro-B Natriuret Pep (0-450) pg/mL Serum Total Protein (6.3-8.2) g/dL Albumin (3.5-5.0) g/dL Lipase 36 (23-300) U/L Urine HCG, Qual NEGATIVE (Negative) 03/27/20 03/27/2003/27/20 Range/Units 19:08 19:08 19:08 WBC (4.0-10.5) K/mm3 RBC (4.1-5.4) M/mm3 Hgb (12.0-16.0) gm/dl Hct (35-47) % MCV (78-100) fl MCH (26-32) pg MCHC (32-36) g/dl RDW (11.5-14.0) % Plt Count (150-450) K/mm3 MPV (7.5-11.0) fl Gran % (36.0-66.0) % Eos # (Auto) (0-0.5) Absolute Lymphs (auto) (1.0-4.6) Absolute Monos (auto) (0.0-1.3) Lymphocytes % (24.0-44.0) % Monocytes % (0.0-12.0) % Eosinophils % (0.00-5.0) % Basophils % (0.0-0.4) % Absolute Granulocytes (1.4-6.9) Basophils # (0-0.4) D-Dimer 286 (215-500) ng/mL Sodium 138 (137-145) mmol/L Potassium 3.5 (3.5-5.1) mmol/L Chloride 108 H (98-107) mmol/L Carbon Dioxide 22 (22-30) mmol/L Anion Gap 11.5 (5-15) MEQ/L BUN 30 H (7-17) mg/dL Creatinine 0.76 (0.52-1.04) mg/dL Estimated GFR > 60.0 ML/MIN Glucose 148 H (74-106) mg/dL Calcium 9.5 (8.4-10.2) mg/dL Total Bilirubin 0.30 (0.2-1.3) mg/dL AST 24 (14-36) U/L ALT 45 H (0-35) U/L Alkaline Phosphatase 142 H (38-126) U/L Troponin I < 0.012 (0.000-0.034) ng/mL NT-Pro-B Natriuret Pep 116 (0-450) pg/mL Serum Total Protein 7.1 (6.3-8.2) g/dL Albumin 3.9 (3.5-5.0) g/dL Lipase (23-300) U/L Urine HCG, Qual (Negative) 03/27/20 Range/Units 19:08 WBC 8.3 (4.0-10.5) K/mm3 RBC 3.75 L (4.1-5.4) M/mm3 Hgb 9.7 L (12.0-16.0) gm/dl Hct 31.3 L (35-47) % MCV 83.5 (78-100) fl MCH 25.9 L (26-32) pg MCHC 31.0 L (32-36) g/dl RDW 16.0 H (11.5-14.0) % Plt Count 287 (150-450) K/mm3 MPV 9.0 (7.5-11.0) fl Gran % 65.2 (36.0-66.0) % Eos # (Auto) 0.13 (0-0.5) Absolute Lymphs (auto) 2.19 (1.0-4.6) Absolute Monos (auto) 0.53 (0.0-1.3) Lymphocytes % 26.4 (24.0-44.0) % Monocytes % 6.4 (0.0-12.0) % Eosinophils % 1.6 (0.00-5.0) % Basophils % 0.4 (0.0-0.4) % Absolute Granulocytes 5.41 (1.4-6.9) Basophils # 0.03 (0-0.4) D-Dimer (215-500) ng/mL Sodium (137-145) mmol/L Potassium (3.5-5.1) mmol/L Chloride (98-107) mmol/L Carbon Dioxide (22-30) mmol/L Anion Gap (5-15) MEQ/L BUN (7-17) mg/dL Creatinine (0.52-1.04) mg/dL Estimated GFR ML/MIN Glucose (74-106) mg/dL Calcium (8.4-10.2) mg/dL Total Bilirubin (0.2-1.3) mg/dL AST (14-36) U/L ALT (0-35) U/L Alkaline Phosphatase (38-126) U/L Troponin I (0.000-0.034) ng/mL NT-Pro-B Natriuret Pep (0-450) pg/mL Serum Total Protein (6.3-8.2) g/dL Albumin (3.5-5.0) g/dL Lipase (23-300) U/L Urine HCG, Qual (Negative) - Progress Progress: improved Air Movement: good Progress Note: Patient reassessed. She feels well. Patient has been having the same chest pain chronically. Patient had 2- troponins. D-dimer negative. V flu negative. X-ray negative as well. Patient requesting discharge. Patient ambulated in [facility] ED. She feels fine. No active chest pain or shortness of breath. Case discussed with , our patient's primary care physician who agrees with disposition and discharge. Patient will follow-up with her primary care doctor within 48 hours for reevaluation. Patient voices no other complaints or concerns at this time. Lipase negative. In light of patient's ongoing pain. Pain involving the lower chest epigastric area we will order an outpatient ultrasound to assess for possible gallstones biliary colic. Results will be forwarded to Dr. Maguire. 03/27/20 22:57 03/27/20 23:26 Blood Culture(s) Obtained: No Antibiotics given: No Counseled pt/family regarding: lab results, diagnosis, need for follow-up, rad results - Departure Departure Disposition: Home Clinical Impression: Chest pain, Normocytic anemia, Elevated BUN, Hyperglycemia, Elevated alkaline phosphatase level, Biliary colic, Epigastric pain Condition: Stable Critical Care Time: No Referrals: TIM MAGUIRE MD [Primary Care Provider] - Instructions: Chest Pain Additional Instructions: Discharge/Care Plan JP MASON was seen on 03/27/20 in the Emergency Room. The patient was counseled regarding Diagnosis,Lab results, Imaging studies, need for follow up and when to return to the Emergency Room. Prescriptions given: Discharge Note I have spoken with the patient and/or caregivers. I have explained the patient's condition, diagnosis and treatment plan based on the information available to me at this time. I have answered the patient's and/or caregiver's questions and addressed any concerns. The patient and/or caregivers have as good understanding of the patient's diagnosis, condition and treatment plan as can be expected at this point. The vital signs have been stable. The patient's condition is stable and appropriate for discharge from the emergency department. The patient will pursue further outpatient evaluation with the primary care physician or other designated or consulting physician as outlined in the discharge instructions. The patient and/or caregivers are agreeable to this plan of care and follow-up instructions have been explained in detail. The patient and/or caregivers have received these instruction. The patient/and or caregivers are aware that any significant change in condition or worsening of symptoms should prompt an immediate return to this or the closest emergency department or call 911.
[2020-03-27 22:07] VITALS: BP 117/85
[2020-03-27 22:56] VITALS: O2SAT 97
[2020-03-27 23:10] VITALS: PULSE 73
--- NOTE | 2020-03-28 08:58 | XRAY ---
Indication: Chest pain. Comparison: March 02, 2020. Portable chest again demonstrates normal heart and lungs. Bony thorax intact. No new/acute findings.
== END 2020-03-27 23:30 | disposition home or self-care (01) ==
LOC: ED 18:44
DX: R07.9 Chest pain, unspecified (principal); D64.9 Anemia, unspecified; R94.4 Abnormal results of kidney function studies; E11.65 Type 2 diabetes mellitus with hyperglycemia; I50.9 Heart failure, unspecified; I38 Endocarditis, valve unspecified; R74.8 Abnormal levels of other serum enzymes; K80.50 Calculus of bile duct without cholangitis or cholecystitis without obstruction; R10.13 Epigastric pain
CPT/HCPCS: 36000; 36415; 71045; 80053; 83690; 83880; 84484; 84703; 85025; 85379; 93005; 93041; 94760; 99284; Q0162; A9270-GY

== ENCOUNTER 2020-04-04 12:54 | Emergency (ER) | payer OTHER ==
--- NOTE | 2020-04-04 13:04 | ERPHSYRPT ---
- History of Present Illness Time Seen by Provider: 04/04/20 13:04 Historian: patient Exam Limitations: no limitations Physician History: This is a 39-year-old morbidly obese white female patient who frequents the emergency department often typically for chest pain and vomiting issues. Patient does work in a [employer] and she gets COVID-19 tested often. She was recently tested and the result was negative. 3 days ago, the patient stated that she started having vomiting and felt like she had a fever although she did not take her temperature. She also states that she has a headache (patient has a history of migraines) and a sore throat. Patient has a history of diabetes, CHF, anxiety issues, chronic anemia and gastroesophageal reflux disease. Although she states that she is vomiting solid food, she is tolerating liquids without any problems per her report. Patient did go to work today but because of her symptoms, she was sent home. Patient denies chest pain and she denies cough. Timing/Duration: day(s) Activities at Onset: none Quality: other (No significant abdominal pain) Abdominal Pain Onset Location: other (No significant abdominal pain) Pain Radiation: no radiation Severity of Pain-Max: none Severity of Pain-Current: none Modifying Factors: Improves With: eating (Solid foods bring on vomiting liquids okay), vomiting Associated Symptoms: nausea, vomiting (With consumption of solid foods.) Previous symptoms: same symptoms as today Allergies/Adverse Reactions: Sulfa (Sulfonamide Antibiotics) [Sulfa(Sulfonamide Antibiotics)] Allergy (Mild, Verified 04/04/20 13:11) Rash rash Home Medications: Metformin HCl 500 mg [Glucophage 500 MG] 500 mg PO DAILY 07/14/14 [History] Citalopram Hydrobromide 20 mg* [ceLEXa 20 MG] 20 mg PO DAILY 07/24/14 [History] Lorazepam 0.5 mg [Ativan 0.5 MG] 0.5 mg PO TID 07/02/15 [History] Famotidine 40 mg PO BID 03/09/16 [History] Metformin HCl 500 mg [Glucophage 500 MG] 250 mg PO DAILY 03/09/16 [History] Diphenhydramine HCl 25 mg [Benadryl 25 mg Capsule] 25 mg PO QAM 05/28/16 [History] Naproxen 375 mg [Naprosyn 375 mg] 375 mg PO BID 08/16/16 [History] Furosemide [Lasix] 20 mg PO UD 09/15/16 [History] SUMAtriptan succinate [Imitrex 50 mg] 50 mg PO DAILY PRN PRN 09/15/16 [History] Levothyroxine Sodium 75 Mcg [Synthroid 75 Mcg] 75 mcg PO DAILY 11/04/16 [ History] Rivaroxaban 10 mg Tablet [Xarelto 10 mg Tablet] 20 mg PO DAILY 08/28/17 [History] Topiramate 25 mg [Topamax 25 MG] 50 mg PO BID 10/14/17 [History] Gabapentin 400 mg [Neurontin 400 MG] 400 mg PO BID 12/07/18 [History] Aspirin 81 mg PO DAILY 03/02/20 [History] Hx Tetanus, Diphtheria Vaccination/Date Given: Yes Hx Influenza Vaccination/Date Given: Yes Hx Pneumococcal Vaccination/Date Given: Yes Travel Risk - International Travel Have you traveled outside of the country in past 3 weeks: No - Coronavirus Screening Are you exhibiting any of the following symptoms?: No Close contact with a COVID-19 positive Pt in past 14-21 Days: No - Review of Systems Constitutional: Fever Eyes: No Symptoms Ears, Nose, & Throat: Throat Pain Respiratory: No Symptoms Cardiac: No Symptoms Abdominal/Gastrointestinal: Nausea, Vomiting, No Abdominal Pain, No Diarrhea Genitourinary Symptoms: No Symptoms Musculoskeletal: No Symptoms Skin: No Symptoms Neurological: No Symptoms Psychological: No Symptoms Endocrine: No Symptoms Hematologic/Lymphatic: No Symptoms Immunological/Allergic: No Symptoms All Other Systems: Reviewed and Negative - Past Medical History Pertinent Past Medical History: Yes Neurological History: No Pertinent History ENT History: No Pertinent History Cardiac History: Congestive Heart Failure, High Cholesterol, Other Respiratory History: Asthma Endocrine Medical History: Diabetes Type II Musculoskeletal History: No Pertinent History GI Medical History: GERD History: No Pertinent History Psycho-Social History: Anxiety, Depression Female Reproductive Disorders: Fibroids Other Medical History: Cath Report 09/25/19 coronary arteries clean, leaky heart v alve - Past Surgical History Past Surgical History: Yes Neuro Surgical History: No Pertinent History Cardiac: Cardiac Catheterization Respiratory: No Pertinent History Gastrointestinal: No Pertinent History Genitourinary: No Pertinent History Musculoskeletal: Other Female Surgical History: No Pertinent History Other Surgical History: bunion to right foot - Social History Smoking Status: Never smoker Exposure to second hand smoke: No Alcohol Use: None Drug Use: none Patient Lives Alone: No Significant Family History: no pertinent family hx, heart disease, hypertension - Nursing Vital Signs Nursing Vital Signs: Initial Vital Signs Temperature 99.5 F 04/04/20 13:05 Pulse Rate 105 H 04/04/20 13:05 Respiratory Rate 22 04/04/20 13:05 Blood Pressure 161/109 04/04/20 13:05 O2 Sat by Pulse Oximetry 98 04/04/20 13:05 Pain Scale Pain Intensity 5 - Physical Exam General Appearance: no apparent distress, alert, anxiety, obese Eye Exam: PERRL/EOMI, eyes nml inspection Ears, Nose, Throat Exam: normal ENT inspection, moist mucous membranes Neck Exam: normal inspection, non-tender, supple, full range of motion Respiratory Exam: normal breath sounds, lungs clear, airway intact, No chest tenderness, No respiratory distress Cardiovascular Exam: regular rate/rhythm, normal heart sounds, normal peripheral pulses Gastrointestinal/Abdomen Exam: soft, normal bowel sounds, No tenderness, No guarding, No rebound Pelvic Exam: not done Rectal Exam: not done Back Exam: normal inspection, normal range of motion, No CVA tenderness, No vertebral tenderness Extremity Exam: normal inspection, normal range of motion, pelvis stable Neurologic Exam: alert, 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, 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, 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, normal mood/affect, nml cerebellar function, nml station & gait, sensation nml Skin Exam: normal color, warm, dry Lymphatic Exam: No adenopathy SpO2 Interpretation: normal O2 Delivery: Room Air Ordered Tests: Active Orders 24 hr Category Date Time Status IV Insertion STAT Care 04/04/20 13:11 Active AMYLASE Stat Lab 04/04/20 13:23 Completed CBC W DIFF Stat Lab 04/04/20 13:23 Completed CMP Stat Lab 04/04/20 13:23 Completed CULTURE,URINE Stat Lab 04/04/20 13:13 Received LIPASE Stat Lab 04/04/20 13:23 Completed Lactic Acid Stat Lab 04/04/20 13:19 Completed Manual Differential NC Stat Lab 04/04/20 13:23 Completed Bullock Screen Stat Lab 04/04/20 Completed UA W/RFX UR CULTURE Stat Lab 04/04/20 13:13 Completed Medication Summary Generic Name Dose Route Start Last Admin Trade Name Paxton PRN Reason Stop Dose Admin Sodium Chloride 1,000 mls @ 100 mls/hr 04/04/20 13:15 04/04/20 13:16 Sodium Chloride 0.9% 1000 Ml IV 05/04/20 13:14 100 mls/hr .Q10H CAITY Administration Discontinued Medications Generic Name Dose Route Start Last Admin Trade Name Paxton PRN Reason Stop Dose Admin Morphine Sulfate 4 mg 04/04/20 13:54 04/04/20 14:00 Morphine Sulfate 4 Mg Inj IV 04/04/20 13:55 4 mg STAT ONE Administration Morphine Sulfate Confirm 04/04/20 13:59 Morphine Sulfate 4 Mg Inj Administered 04/04/20 14:00 Dose 4 mg .ROUTE .STK-MED ONE Ondansetron HCl 4 mg 04/04/20 13:11 04/04/20 13:16 Zofran 4 Mg/2 Ml Vial IV 04/04/20 13:12 4 mg STAT ONE Administration Ondansetron HCl Confirm 04/04/20 13:15 Zofran 4 Mg/2 Ml Vial Administered 04/04/20 13:16 Dose 4 mg .ROUTE .STK-MED ONE Lab/Rad Data: Laboratory Result Diagrams 04/04/20 13:23 04/04/20 13:23 Laboratory Results 04/04/20 04/04/20 04/04/20 Range/Units Unknown Unknown 13:23 WBC (4.0-10.5) K/mm3 RBC (4.1-5.4) M/mm3 Hgb (12.0-16.0) gm/dl Hct (35-47) % MCV (78-100) fl MCH (26-32) pg MCHC (32-36) g/dl RDW (11.5-14.0) % Plt Count (150-450) K/mm3 MPV (7.5-11.0) fl Absolute Granulocytes (1.4-6.9) Segmented Neutrophils (36.0-66.0) % Band Neutrophils (0.0-2.0) % Lymphocytes (Manual) (24-44) % Monocytes (Manual) (0.0-12.0) % Platelet Estimate (NORMAL) RBC Morphology Polychromasia Anisocytosis Ovalocytes Sodium 139 (137-145) mmol/L Potassium 4.0 (3.5-5.1) mmol/L Chloride 108 H (98-107) mmol/L Carbon Dioxide 23 (22-30) mmol/L Anion Gap 11.3 (5-15) MEQ/L BUN 15 (7-17) mg/dL Creatinine 0.75 (0.52-1.04) mg/dL Estimated GFR > 60.0 ML/MIN Glucose 152 H (74-106) mg/dL Lactic Acid (0.4-2.0) Calcium 9.1 (8.4-10.2) mg/dL Total Bilirubin 0.20 (0.2-1.3) mg/dL AST 41 H (14-36) U/L ALT 69 H (0-35) U/L Alkaline Phosphatase 148 H (38-126) U/L Serum Total Protein 7.5 (6.3-8.2) g/dL Albumin 4.2 (3.5-5.0) g/dL Amylase 48 (30-110) U/L Lipase 52 (23-300) U/L Urine Color (YELLOW) Urine Appearance (CLEAR) Urine pH (5-6) Ur Specific Mcgill (1.005-1.025) Urine Protein (Negative) Urine Ketones (NEGATIVE) Urine Blood (0-5) Chago/ul Urine Nitrite (NEGATIVE) Urine Bilirubin (NEGATIVE) Urine Urobilinogen (0-1) mg/dL Ur Leukocyte Esterase (NEGATIVE) Urine WBC (Auto) (0-5) /HPF Urine RBC (Auto) (0-2) /HPF U Epithel Cells (Auto) (FEW) /HPF Urine Bacteria (Auto) (NEGATIVE) /HPF Urine Mucus (Auto) (NEGATIVE) /HPF Urine Culture Reflexed (NO) Urine Glucose (NEGATIVE) mg/dL Monoscreen NEGATIVE (Negative) Influenza Type A Ag NEGATIVE (NEGATIVE) Influenza Type B Ag NEGATIVE (NEGATIVE) RSV (PCR) NEGATIVE (Negative) Group A Strep Antibody NOT DETECTED (NEGATIVE) 04/04/20 04/04/20 04/04/20 Range/Units 13:23 13:19 13:13 WBC 5.0 (4.0-10.5) K/mm3 RBC 4.03 L (4.1-5.4) M/mm3 Hgb 10.1 L (12.0-16.0) gm/dl Hct 33.5 L (35-47) % MCV 83.1 (78-100) fl MCH 25.1 L (26-32) pg MCHC 30.1 L (32-36) g/dl RDW 16.1 H (11.5-14.0) % Plt Count 293 (150-450) K/mm3 MPV 9.4 (7.5-11.0) fl Absolute Granulocytes 2.92 (1.4-6.9) Segmented Neutrophils 43 (36.0-66.0) % Band Neutrophils 15 H (0.0-2.0) % Lymphocytes (Manual) 32 (24-44) % Monocytes (Manual) 10 (0.0-12.0) % Platelet Estimate NORMAL (NORMAL) RBC Morphology ABNORMAL Polychromasia RARE Anisocytosis 1+ Ovalocytes 1+ Sodium (137-145) mmol/L Potassium (3.5-5.1) mmol/L Chloride (98-107) mmol/L Carbon Dioxide (22-30) mmol/L Anion Gap (5-15) MEQ/L BUN (7-17) mg/dL Creatinine (0.52-1.04) mg/dL Estimated GFR ML/MIN Glucose (74-106) mg/dL Lactic Acid 1.0 (0.4-2.0) Calcium (8.4-10.2) mg/dL Total Bilirubin (0.2-1.3) mg/dL AST (14-36) U/L ALT (0-35) U/L Alkaline Phosphatase (38-126) U/L Serum Total Protein (6.3-8.2) g/dL Albumin (3.5-5.0) g/dL Amylase (30-110) U/L Lipase (23-300) U/L Urine Color YELLOW (YELLOW) Urine Appearance SLIGHTLY CLOUDY (CLEAR) Urine pH 5.0 (5-6) Ur Specific Mcgill 1.019 (1.005-1.025) Urine Protein 30 (Negative) Urine Ketones NEGATIVE (NEGATIVE) Urine Blood NEGATIVE (0-5) Chago/ul Urine Nitrite NEGATIVE (NEGATIVE) Urine Bilirubin NEGATIVE (NEGATIVE) Urine Urobilinogen NEGATIVE (0-1) mg/dL Ur Leukocyte Esterase NEGATIVE (NEGATIVE) Urine WBC (Auto) 0-2 (0-5) /HPF Urine RBC (Auto) NONE (0-2) /HPF U Epithel Cells (Auto) RARE (FEW) /HPF Urine Bacteria (Auto) MODERATE (NEGATIVE) /HPF Urine Mucus (Auto) SLIGHT (NEGATIVE) /HPF Urine Culture Reflexed YES (NO) Urine Glucose NEGATIVE (NEGATIVE) mg/dL Monoscreen (Negative) Influenza Type A Ag (NEGATIVE) Influenza Type B Ag (NEGATIVE) RSV (PCR) (Negative) Group A Strep Antibody (NEGATIVE) - Progress Progress: improved, re-examined Counseled pt/family regarding: lab results, diagnosis, need for follow-up - Departure Departure Disposition: Home Clinical Impression: Vomiting Condition: Stable Critical Care Time: No Referrals: TIM MAGUIRE MD [Primary Care Provider] - Additional Instructions: Drink plenty of fluids. Not just water. Monitor your blood sugar levels closely. If your blood sugar levels are low do not take your diabetes medication. Advance your diet slowly. Follow-up with your primary care physician for further management. Prescriptions: Ondansetron HCl [Zofran] 4 mg PO TID PRN #10 tablet PRN Reason: Nausea/Vomiting
[2020-04-04] MEDS ORDERED: Zofran 4 MG/2 ML VIAL IV ONE (13:11)
[2020-04-04] MEDS ORDERED: Sodium Chloride 0.9% 1000 ML 1,000 ML IV SCH (13:15)
[2020-04-04] MEDS ORDERED: Sodium Chloride 0.9% 1000 ML 1,000 ML ONE (13:15)
[2020-04-04] MEDS ORDERED: Zofran 4 MG/2 ML VIAL ONE (13:15)
[2020-04-04 13:30] LABS: Appearance SLIGHTLY CLOUDY (CLEAR); Bacteria MODERATE /HPF (NEGATIVE); Bilirubin NEGATIVE (NEGATIVE); Blood NEGATIVE Ery/ul (0-5); Epithelial Cells RARE /HPF (FEW); Glucose NEGATIVE (NEGATIVE); Ketones NEGATIVE (NEGATIVE); Leukocyte Esterase NEGATIVE (NEGATIVE); Mucus SLIGHT /HPF (NEGATIVE); Nitrite NEGATIVE (NEGATIVE); Protein,Urine Dip 30 (Negative); Specific Gravity 1.019 (1.005-1.025); Urobilinogen NEGATIVE mg/dL (0-1); WBC 0-2 /HPF (0-5)
[2020-04-04 13:38] LABS: Hematocrit 33.5 % (35-47); Hemoglobin 10.1 gm/dl (12.0-16.0); Mean Cell Volume 83.1 fl (78-100); Mean Corpuscular Hemoglobin 25.1 pg (26-32); Mean Corpuscular Hgb Concent. 30.1 g/dl (32-36); Mean Platelet Volume 9.4 fl (7.5-11.0); Platelet Count 293 K/mm3 (150-450); Red Blood Count 4.03 M/mm3 (4.1-5.4); Red Cell Distribution Width 16.1 % (11.5-14.0)
[2020-04-04 13:42] LABS: ALBUMIN 4.2 g/dL (3.5-5.0); ALKALINE PHOSPHATASE 148 U/L (38-126); AMYLASE 48 U/L (30-110); ANION GAP 11.3 MEQ/L (5-15); BLOOD UREA NITROGEN 15 mg/dL (7-17); CHLORIDE 108 mmol/L (98-107); Calcium 9.1 mg/dL (8.4-10.2); Carbon Dioxide 23 mmol/L (22-30); Creatinine 1 0.75 mg/dL (0.52-1.04); EST GLOMERULAR FILTRATION RATE > 60.0 ML/MIN; Glucose 152 mg/dL (74-106); LIPASE 52 U/L (23-300); SGOT/AST 41 U/L (14-36); SGPT/ALT 69 U/L (0-35); SODIUM 139 mmol/L (137-145); Total Protein 7.5 g/dL (6.3-8.2)
[2020-04-04] MEDS ORDERED: MORPHINE SULFATE 4 MG INJ IV ONE (13:54)
[2020-04-04] MEDS ORDERED: MORPHINE SULFATE 4 MG INJ ONE (13:59)
[2020-04-04 14:12] LABS: ANISOCYTOSIS 1+; BAND 15 % (0.0-2.0); Lymphocytes 32 % (24-44); Monocyte 10 % (0.0-12.0); Neutrophils 43 % (36.0-66.0); Ovalocytes 1+; Platelet Estimate NORMAL (NORMAL); Polychromasia RARE; Total Cells Counted 100
[2020-04-04 14:13] LABS: Absolute Neutrophil Ct (ANC) 2.92 (1.4-6.9)
[2020-04-04 14:25] LABS: INFLUENZA A NEGATIVE (NEGATIVE); INFLUENZA B NEGATIVE (NEGATIVE); RESPIRATORY SYNCTIAL VIRUS NEGATIVE (Negative)
[2020-04-04 14:42] VITALS: O2SAT 98
[2020-04-04 14:54] LABS: Group A Strep NOT DETECTED (NEGATIVE)
[2020-04-04 16:13] VITALS: BP 126/72; PULSE 80
== END 2020-04-04 16:35 | disposition home or self-care (01) ==
LOC: ED 12:54
DX: R11.10 Vomiting, unspecified (principal)
CPT/HCPCS: 36000; 36415; 80053; 81001; 82150; 83605; 83690; 85025; 86308; 87086; 87631; 87651; 96374; 96375; 99284; J2270; J2405

== ENCOUNTER 2020-04-29 21:37 | Emergency (ER) | payer OTHER ==
--- NOTE | 2020-04-29 22:16 | ERPHSYRPT ---
- History of Present Illness Time Seen by Provider: 04/29/20 21:50 Source: patient Exam Limitations: no limitations Patient Subjective Stated Complaint: pt states "I had a asthma attack 30 minutes ago." Triage Nursing Assessment: pt came into the er via ambulance; pt is axo x4; c/o asthma attack; pt has hx of asthma; c/o chest tightness due to coughing; no cough present at this time; no SOB present; clear lung sounds in all lobes; clear heart tone; active bowel sounds; afebrile; negative COVID test on tuesday; vitals wnl Physician History: Patient is a 39-year-old female presents to our ED with complaints of asthma exacerbation. Patient has a history of asthma. She states she works at [employer]. Patient states her employer made her put on an N95 mask. She advised her employer that N95 masks tend to trigger her asthma. Patient states that her employer told her that she would need a doctor's excuse to avoid wearing an N95 mask. Patient did not want problems with her work so she wear the N95 mask against her better judgment. Upon arriving at her home patient took a nap. However upon awakening, began coughing. Patient began wheezing. Symptoms are mild to moderate in intensity. Patient stated her symptoms were typical asthma exacerbation. Patient took her home steroids. Patient was treated was treated with nebulizer. She did not significantly improve. However upon arrival to our ED her symptoms resolved. Patient's lungs are clear. Patient is no longer coughing. Patient denies shortness of breath. No chest pain. No nausea or vomiting. No diaphoresis. Vitals are within normal limits. Patient is asymptomatic. Patient declined any sort of work-up as she is asymptomatic. Patient requesting discharge. Timing/Duration: today Activities at Onset: none Severity of Dyspnea-Max: moderate Severity of Dyspnea-Current: mild Possible Cause: occasional episodes Modifying Factors: Improves With: nothing Associated Symptoms: denies symptoms (Patient is currently asymptomatic. However while she was experiencing asthma exacerbation she is experiencing coughing fits.) Allergies/Adverse Reactions: Sulfa (Sulfonamide Antibiotics) [Sulfa(Sulfonamide Antibiotics)] Allergy (Mild, Verified 04/29/20 21:40) Rash rash Home Medications: Metformin HCl 500 mg [Glucophage 500 MG] 500 mg PO DAILY 07/14/14 [History] Citalopram Hydrobromide 20 mg* [ceLEXa 20 MG] 20 mg PO DAILY 07/24/14 [History] Lorazepam 0.5 mg [Ativan 0.5 MG] 0.5 mg PO TID 07/02/15 [History] Famotidine 40 mg PO BID 03/09/16 [History] Metformin HCl 500 mg [Glucophage 500 MG] 250 mg PO DAILY 03/09/16 [History] Diphenhydramine HCl 25 mg [Benadryl 25 mg Capsule] 25 mg PO QAM 05/28/16 [History] Naproxen 375 mg [Naprosyn 375 mg] 375 mg PO BID 08/16/16 [History] Furosemide [Lasix] 20 mg PO UD 09/15/16 [History] SUMAtriptan succinate [Imitrex 50 mg] 50 mg PO DAILY PRN PRN 09/15/16 [History] Levothyroxine Sodium 75 Mcg [Synthroid 75 Mcg] 75 mcg PO DAILY 11/04/16 [History] Rivaroxaban 10 mg Tablet [Xarelto 10 mg Tablet] 20 mg PO DAILY 08/28/17 [History] Topiramate 25 mg [Topamax 25 MG] 50 mg PO BID 10/14/17 [History] Gabapentin 400 mg [Neurontin 400 MG] 400 mg PO BID 12/07/18 [History] Aspirin 81 mg PO DAILY 03/02/20 [History] Hx Tetanus, Diphtheria Vaccination/Date Given: Yes Hx Influenza Vaccination/Date Given: Yes Hx Pneumococcal Vaccination/Date Given: Yes Travel Risk - International Travel Have you traveled outside of the country in past 3 weeks: No - Coronavirus Screening Are you exhibiting any of the following symptoms?: No Close contact with a COVID-19 positive Pt in past 14-21 Days: No - Review of Systems Constitutional: No Symptoms, No Fever, No Chills Eyes: No Symptoms Ears, Nose, & Throat: No Symptoms Respiratory: No Symptoms, No Cough, No Dyspnea Cardiac: No Symptoms, No Chest Pain, No Edema, No Syncope Abdominal/Gastrointestinal: No Symptoms, No Abdominal Pain, No Nausea, No Vomiting, No Diarrhea Genitourinary Symptoms: No Symptoms, No Dysuria Musculoskeletal: No Symptoms, No Back Pain, No Neck Pain Skin: No Symptoms, No Rash Neurological: No Symptoms, No Dizziness, No Focal Weakness, No Sensory Changes Psychological: No Symptoms Endocrine: No Symptoms Hematologic/Lymphatic: No Symptoms Immunological/Allergic: No Symptoms All Other Systems: Reviewed and Negative - Past Medical History Pertinent Past Medical History: Yes Neurological History: No Pertinent History ENT History: No Pertinent History Cardiac History: Congestive Heart Failure, High Cholesterol, Other Respiratory History: Asthma Endocrine Medical History: Diabetes Type II Musculoskeletal History: No Pertinent History GI Medical History: GERD History: No Pertinent History Psycho-Social History: Anxiety, Depression Female Reproductive Disorders: Fibroids Other Medical History: Cath Report 09/25/19 coronary arteries clean, leaky heart valve - Past Surgical History Past Surgical History: Yes Neuro Surgical History: No Pertinent History Cardiac: Cardiac Catheterization Respiratory: No Pertinent History Gastrointestinal: No Pertinent History Genitourinary: No Pertinent History Musculoskeletal: Other Female Surgical History: No Pertinent History Other Surgical History: bunion to right foot - Social History Smoking Status: Never smoker Exposure to second hand smoke: No Alcohol Use: None Drug Use: none Patient Lives Alone: No Significant Family History: no pertinent family hx, heart disease, hypertension - Female History Hx Now: No - Nursing Vital Signs Nursing Vital Signs: Initial Vital Signs Temperature 98.8 F 04/29/20 21:41 Pulse Rate 91 H 04/29/20 21:41 Respiratory Rate 26 H 04/29/20 21:41 Blood Pressure 102/78 04/29/20 21:41 O2 Sat by Pulse Oximetry 95 04/29/20 21:41 Pain Scale Pain Intensity 5 - Physical Exam General Appearance: no apparent distress, alert Eye Exam: PERRL/EOMI Ears, Nose, Throat Exam: hearing grossly normal, normal ENT inspection, normal pharynx Neck Exam: normal inspection, supple Respiratory Exam: normal breath sounds Cardiovascular/Chest Exam: normal heart sounds, regular rate/rhythm Abdominal/Gastrointestinal Exam: soft, No tenderness, No distention, No mass Extremity Exam: non-tender, normal range of motion, normal inspection, no calf tenderness, no pedal edema Neurologic Exam: alert, 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, 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 She remains asymptomatic. Lungs are clear. Vitals are within normal limits. Patient is asymptomatic. Patient requesting discharge. Per patient's request we will discharge patient at this time. Patient voices no other complaints or concerns at this time. She agrees to follow-up with her primary care doctor within 48 hours for reevaluation. Blood Culture(s) Obtained: No Antibiotics given: No Counseled pt/family regarding: diagnosis, need for follow-up - Departure Departure Disposition: Home Clinical Impression: Asthma Condition: Stable Critical Care Time: No Referrals: TIM MAGUIRE MD [Primary Care Provider] - Additional Instructions: Discharge/Care Plan JP MASON was seen on 04/29/20 in the Emergency Room. The patient was counseled regarding Diagnosis,Lab results, Imaging studies, need for follow up and when to return to the Emergency Room. Prescriptions given: Discharge Note I have spoken with the patient and/or caregivers. I have explained the patient's condition, diagnosis and treatment plan based on the information available to me at this time. I have answered the patient's and/or caregiver's questions and addressed any concerns. The patient and/or caregivers have as good understanding of the patient's diagnosis, condition and treatment plan as can be expected at this point. The vital signs have been stable. The patient's condition is stable and appropriate for discharge from the emergency department. The patient will pursue further outpatient evaluation with the primary care physician or other designated or consulting physician as outlined in the discharge instructions. The patient and/or caregivers are agreeable to this plan of care and follow-up instructions have been explained in detail. The patient and/or caregivers have received these instruction. The patient/and or caregivers are aware that any significant change in condition or worsening of symptoms should prompt an immediate return to this or the closest emergency department or call 911.
[2020-04-29 22:39] VITALS: BP 106/68; PULSE 76; O2SAT 97
== END 2020-04-29 22:44 | disposition home or self-care (01) ==
LOC: ED 21:37
DX: J45.909 Unspecified asthma, uncomplicated (principal); Z79.899 Other long term (current) drug therapy; E11.9 Type 2 diabetes mellitus without complications; I50.9 Heart failure, unspecified; E78.5 Hyperlipidemia, unspecified
CPT/HCPCS: 99283

== ENCOUNTER 2020-06-10 21:39 | Emergency (ER) | payer OTHER ==
[2020-06-10 21:43] VITALS: O2SAT 98
[2020-06-10] MEDS ORDERED: Sodium Chloride 0.9% 1000 ML 1,000 ML IV SCH (22:00)
[2020-06-10] MEDS ORDERED: Sodium Chloride 0.9% 1000 ML 1,000 ML ONE (22:01)
--- NOTE | 2020-06-10 22:24 | ERPHSYRPT ---
- History of Present Illness Time Seen by Provider: 06/10/20 21:50 Source: patient Exam Limitations: no limitations Patient Subjective Stated Complaint: pt c/o "not feeling right" Triage Nursing Assessment: Pt woke up around 2029 and informed her spouse that she "just didn't feel right". ambulance was called. Pt brought in for dizziness, chest pain, nausea. Pt c/o chest pain at sternum area, under lt breast and down left amr. Pt was given zofran 4mg iv in route. Lungs clear, heart tones reg, abd soft with active bs x4 quad, nontender. Physician History: Patient is a 39-year-old female morbidly obese presents to our ED for evaluation of chest pain dizziness and nausea. Patient awoke at approximately 10:30 PM this evening. Patient's states that she was experiencing some vague chest pain primarily underneath her left breast. She felt some slight discomfort in her left arm as well. Patient felt somewhat nauseous but did not vomit. Patient called EMS. Patient received 4 mg of Zofran IV. No associated fever. No trauma. No vomiting. Symptoms are mild to moderate in intensity. No specific worsening improving factors. Patient states that she has had these symptoms many times over the past year. She has been worked up extensively for the symptoms and work-up has come up negative. Patient believes her symptoms are due to her recent medication adjustment. Patient voices no other complaints concerns at this time. Timing/Duration: today Severity: moderate Modifying Factors: Improves With: movement, nothing Associated Symptoms: nausea, chest pain, No vomiting, No shortness of breath, No diaphoresis, No fever, No malaise, No syncope, No seizure, No weakness Allergies/Adverse Reactions: Sulfa (Sulfonamide Antibiotics) [Sulfa(Sulfonamide Antibiotics)] Allergy (Mild, Verified 06/10/20 21:51) Rash rash Home Medications: Metformin HCl 500 mg [Glucophage 500 MG] 500 mg PO DAILY 07/14/14 [History] Citalopram Hydrobromide 20 mg* [ceLEXa 20 MG] 20 mg PO DAILY 07/24/14 [History] Famotidine 40 mg PO BID 03/09/16 [History] Metformin HCl 500 mg [Glucophage 500 MG] 250 mg PO DAILY 03/09/16 [History] Diphenhydramine HCl 25 mg [Benadryl 25 mg Capsule] 25 mg PO QAM 05/28/16 [History] Naproxen 375 mg [Naprosyn 375 mg] 375 mg PO BID 08/16/16 [History] Furosemide [Lasix] 20 mg PO UD 09/15/16 [History] SUMAtriptan succinate [Imitrex 50 mg] 50 mg PO DAILY PRN PRN 09/15/16 [History] Levothyroxine Sodium 75 Mcg [Synthroid 75 Mcg] 75 mcg PO DAILY 11/04/16 [History] Rivaroxaban 10 mg Tablet [Xarelto 10 mg Tablet] 20 mg PO DAILY 08/28/17 [History] Topiramate 25 mg [Topamax 25 MG] 50 mg PO BID 10/14/17 [History] Gabapentin 400 mg [Neurontin 400 MG] 400 mg PO BID 12/07/18 [History] Aspirin 81 mg PO DAILY 03/02/20 [History] Hx Tetanus, Diphtheria Vaccination/Date Given: Yes Hx Influenza Vaccination/Date Given: Yes Hx Pneumococcal Vaccination/Date Given: No Immunizations Up to Date: Yes Travel Risk - International Travel Have you traveled outside of the country in past 3 weeks: No - Coronavirus Screening Are you exhibiting any of the following symptoms?: No Close contact with a COVID-19 positive Pt in past 14-21 Days: No - Review of Systems Constitutional: No Symptoms, No Fever, No Chills Eyes: No Symptoms Ears, Nose, & Throat: No Symptoms Respiratory: No Symptoms, No Cough, No Dyspnea Cardiac: No Symptoms, No Chest Pain, No Edema, No Syncope Abdominal/Gastrointestinal: No Symptoms, No Abdominal Pain, No Nausea, No Vomiting, No Diarrhea Genitourinary Symptoms: No Symptoms, No Dysuria Musculoskeletal: No Symptoms, No Back Pain, No Neck Pain Skin: No Symptoms, No Rash Neurological: No Symptoms, No Dizziness, No Focal Weakness, No Sensory Changes Psychological: No Symptoms Endocrine: No Symptoms Hematologic/Lymphatic: No Symptoms Immunological/Allergic: No Symptoms All Other Systems: Reviewed and Negative - Past Medical History Pertinent Past Medical History: Yes Neurological History: No Pertinent History ENT History: No Pertinent History Cardiac History: Congestive Heart Failure, High Cholesterol, Hypertension, Other Respiratory History: Asthma Endocrine Medical History: Diabetes Type II Musculoskeletal History: No Pertinent History GI Medical History: GERD History: No Pertinent History Psycho-Social History: Anxiety, Depression Female Reproductive Disorders: Fibroids Other Medical History: Cath Report 09/25/19 coronary arteries clean, leaky heart valve - Past Surgical History Past Surgical History: Yes Neuro Surgical History: No Pertinent History Cardiac: Cardiac Catheterization Respiratory: No Pertinent History Gastrointestinal: No Pertinent History Genitourinary: No Pertinent History Musculoskeletal: Other Female Surgical History: No Pertinent History Other Surgical History: bunion to right foot - Social History Smoking Status: Never smoker Exposure to second hand smoke: No Alcohol Use: None Drug Use: none Patient Lives Alone: No Significant Family History: no pertinent family hx, heart disease, hypertension - Female History Hx Last Menstrual Period: 06/10/20 Hx Now: No - Nursing Vital Signs Nursing Vital Signs: Initial Vital Signs Temperature 98.5 F 06/10/20 21:41 Pulse Rate 80 06/10/20 21:41 Respiratory Rate 20 06/10/20 21:41 Blood Pressure 120/74 06/10/20 21:41 O2 Sat by Pulse Oximetry 98 06/10/20 21:41 Pain Scale Pain Intensity 0 - Physical Exam General Appearance: no apparent distress, alert Eye Exam: PERRL/EOMI, eyes nml inspection Ears, Nose, Throat Exam: normal ENT inspection, TMs normal, pharynx normal, moist mucous membranes Neck Exam: normal inspection, non-tender, supple, full range of motion Respiratory Exam: normal breath sounds, lungs clear, No respiratory distress Cardiovascular Exam: regular rate/rhythm, normal heart sounds, normal peripheral pulses Gastrointestinal/Abdomen Exam: soft, normal bowel sounds, No tenderness, No mass Back Exam: normal inspection, normal range of motion, No CVA tenderness, No vertebral tenderness Extremity Exam: normal inspection, normal range of motion, pelvis stable Neurologic Exam: alert, 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, cooperative, normal mood/affect, nml cerebellar function, sensation nml, No motor deficits Skin Exam: normal color, warm, dry, No rash Lymphatic Exam: No adenopathy SpO2 Interpretation: normal SpO2: 98 O2 Delivery: Room Air - Course Nursing assessment & vital signs reviewed: Yes EKG Interpreted by Me: RATE (77), Sinus Rhythm, NORMAL AXIS, NORMAL INTERVALS - Radiology Exams Chest X-ray Interpretation: Interpreted by me (Filtrate no consolidation no effusion normal bony thorax. No acute findings essentially negative chest x-ray.) Ordered Tests: Active Orders 24 hr Category Date Time Status Aircraft Detail Draftsperson STAT Care 06/10/20 21:49 Active EKG-ER Only STAT Care 06/10/20 21:49 Active IV Insertion STAT Care 06/10/20 21:49 Active Pulse Oximetry (ED) STAT Care 06/10/20 21:49 Active CHEST 1 VIEW (PORTABLE) Stat Exams 06/10/20 21:55 Taken CBC W DIFF Stat Lab 06/10/20 22:10 Completed CMP Stat Lab 06/10/20 22:10 Completed MAGNESIUM Stat Lab 06/10/20 22:10 Completed TROPONIN Q3H Lab 06/10/20 22:10 Completed TROPONIN Q3H Lab 06/11/20 01:00 Ordered TROPONIN Q3H Lab 06/11/20 04:00 Ordered TROPONIN Q3H Lab 06/11/20 07:00 Ordered TROPONIN Q3H Lab 06/11/20 10:00 Ordered TROPONIN Routine Lab 06/10/20 23:39 Completed Medication Summary Generic Name Dose Route Start Last Admin Trade Name Freq PRN Reason Stop Dose Admin Sodium Chloride 1,000 mls @ 100 mls/hr 06/10/20 22:00 06/10/20 22:05 Sodium Chloride 0.9% 1000 Ml IV 07/10/20 21:59 100 mls/hr .Q10H CAITY Administration Lab/Rad Data: Laboratory Result Diagrams 06/10/20 22:10 06/10/20 22:10 Laboratory Results 06/10/20 06/10/20 06/10/20 Range/Units 23:39 22:10 22:10 WBC (4.0-10.5) K/mm3 RBC (4.1-5.4) M/mm3 Hgb (12.0-16.0) gm/dl Hct (35-47) % MCV (78-100) fl MCH (26-32) pg MCHC (32-36) g/dl RDW (11.5-14.0) % Plt Count (150-450) K/mm3 MPV (7.5-11.0) fl Gran % (36.0-66.0) % Eos # (Auto) (0-0.5) Absolute Lymphs (auto) (1.0-4.6) Absolute Monos (auto) (0.0-1.3) Lymphocytes % (24.0-44.0) % Monocytes % (0.0-12.0) % Eosinophils % (0.00-5.0) % Basophils % (0.0-0.4) % Absolute Granulocytes (1.4-6.9) Basophils # (0-0.4) Sodium 141 (137-145) mmol/L Potassium 3.9 (3.5-5.1) mmol/L Chloride 114 H (98-107) mmol/L Carbon Dioxide 21 L (22-30) mmol/L Anion Gap 9.2 (5-15) MEQ/L BUN 25 H (7-17) mg/dL Creatinine 0.76 (0.52-1.04) mg/dL Estimated GFR > 60.0 ML/MIN Glucose 152 H (74-106) mg/dL Calcium 8.9 (8.4-10.2) mg/dL Magnesium 1.8 (1.6-2.3) mg/dL Total Bilirubin 0.20 (0.2-1.3) mg/dL AST 18 (14-36) U/L ALT 27 (0-35) U/L Alkaline Phosphatase 118 (38-126) U/L Troponin I < 0.012 < 0.012 (0.000-0.034) ng/mL Serum Total Protein 6.8 (6.3-8.2) g/dL Albumin 3.6 (3.5-5.0) g/dL 12/22/20 Range/Units 22:10 WBC 7.2 (4.0-10.5) K/mm3 RBC 3.85 L (4.1-5.4) M/mm3 Hgb 10.0 L (12.0-16.0) gm/dl Hct 32.5 L (35-47) % MCV 84.4 (78-100) fl MCH 26.0 (26-32) pg MCHC 30.8 L (32-36) g/dl RDW 15.8 H (11.5-14.0) % Plt Count 279 (150-450) K/mm3 MPV 9.6 (7.5-11.0) fl Gran % 58.0 (36.0-66.0) % Eos # (Auto) 0.19 (0-0.5) Absolute Lymphs (auto) 2.24 (1.0-4.6) Absolute Monos (auto) 0.56 (0.0-1.3) Lymphocytes % 31.2 (24.0-44.0) % Monocytes % 7.8 (0.0-12.0) % Eosinophils % 2.6 (0.00-5.0) % Basophils % 0.4 (0.0-0.4) % Absolute Granulocytes 4.16 (1.4-6.9) Basophils # 0.03 (0-0.4) Sodium (137-145) mmol/L Potassium (3.5-5.1) mmol/L Chloride (98-107) mmol/L Carbon Dioxide (22-30) mmol/L Anion Gap (5-15) MEQ/L BUN (7-17) mg/dL Creatinine (0.52-1.04) mg/dL Estimated GFR ML/MIN Glucose (74-106) mg/dL Calcium (8.4-10.2) mg/dL Magnesium (1.6-2.3) mg/dL Total Bilirubin (0.2-1.3) mg/dL AST (14-36) U/L ALT (0-35) U/L Alkaline Phosphatase (38-126) U/L Troponin I (0.000-0.034) ng/mL Serum Total Protein (6.3-8.2) g/dL Albumin (3.5-5.0) g/dL - Progress Progress: improved Progress Note: 06/11/20 00:20 Patient reassessed. Symptoms resolved. Patient currently asymptomatic. Patient ambulated in our ED. Patient felt well. No chest pain or shortness of breath. No nausea or vomiting. No diaphoresis. No dizziness. Troponin negative x2. EKG shows normal sinus rhythm. Chest x-ray negative for acute changes. Patient is requesting discharge at this time. Patient agrees to follow-up with her primary care doctor within 48 hours for reevaluation. Patient voices no other complaints or concerns at this time. Vital stable. 06/11/20 00:24 Counseled pt/family regarding: lab results, diagnosis, need for follow-up, rad results - Departure Departure Disposition: Home Clinical Impression: Anemia, Dizziness, Chest pain Condition: Stable Critical Care Time: No Referrals: TIM MAGUIRE MD [Primary Care Provider] - Instructions: Vertigo (a Type of Dizziness) (DC) Additional Instructions: Discharge/Care Plan JP MASON was seen on 06/11/20 in the Emergency Room. The patient was counseled regarding Diagnosis,Lab results, Imaging studies, need for follow up and when to return to the Emergency Room. Prescriptions given: Discharge Note I have spoken with the patient and/or caregivers. I have explained the patient's condition, diagnosis and treatment plan based on the information available to me at this time. I have answered the patient's and/or caregiver's questions and addressed any concerns. The patient and/or caregivers have as good understanding of the patient's diagnosis, condition and treatment plan as can be expected at this point. The vital signs have been stable. The patient's condition is stable and appropriate for discharge from the emergency department. The patient will pursue further outpatient evaluation with the primary care physician or other designated or consulting physician as outlined in the discharge instructions. The patient and/or caregivers are agreeable to this plan of care and follow-up instructions have been explained in detail. The patient and/or caregivers have received these instruction. The patient/and or caregivers are aware that any significant change in condition or worsening of symptoms should prompt an immediate return to this or the closest emergency department or call 911. Forms: Work/School Release Form
[2020-06-10 22:26] LABS: ALBUMIN 3.6 g/dL (3.5-5.0); ALKALINE PHOSPHATASE 118 U/L (38-126); ANION GAP 9.2 MEQ/L (5-15); Absolute Neutrophil Ct (ANC) 4.16 (1.4-6.9); BASOPHIL % 0.4 % (0.0-0.4); BLOOD UREA NITROGEN 25 mg/dL (7-17); Basophil (Absolute #) 0.03 (0-0.4); CHLORIDE 114 mmol/L (98-107); Calcium 8.9 mg/dL (8.4-10.2); Carbon Dioxide 21 mmol/L (22-30); Creatinine 1 0.76 mg/dL (0.52-1.04); EST GLOMERULAR FILTRATION RATE > 60.0 ML/MIN; Eosinophil % 2.6 % (0.00-5.0); Eosinophil (Absolute #) 0.19 (0-0.5); Glucose 152 mg/dL (74-106); Hematocrit 32.5 % (35-47); Lymphocyte (Absolute #) 2.24 (1.0-4.6); Lymphocytes % 31.2 % (24.0-44.0); MAGNESIUM 1.8 mg/dL (1.6-2.3); Mean Cell Volume 84.4 fl (78-100); Mean Corpuscular Hgb Concent. 30.8 g/dl (32-36); Mean Platelet Volume 9.6 fl (7.5-11.0); Monocyte (Absolute #) 0.56 (0.0-1.3); Monocytes % 7.8 % (0.0-12.0); Platelet Count 279 K/mm3 (150-450); Potassium 3.9 mmol/L (3.5-5.1); Red Blood Count 3.85 M/mm3 (4.1-5.4); Red Cell Distribution Width 15.8 % (11.5-14.0); SGOT/AST 18 U/L (14-36); SGPT/ALT 27 U/L (0-35); SODIUM 141 mmol/L (137-145); Total Protein 6.8 g/dL (6.3-8.2); White Blood Count 7.2 K/mm3 (4.0-10.5)
[2020-06-11 00:29] VITALS: BP 124/87; PULSE 71
--- NOTE | 2020-06-11 09:05 | XRAY ---
Indication: Chest pain. Comparison: March 27, 2020. Portable chest again demonstrates normal heart and lungs. Bony thorax intact. No new/acute findings.
== END 2020-06-11 00:34 | disposition home or self-care (01) ==
LOC: ED 21:39
DX: D64.9 Anemia, unspecified (principal); R42 Dizziness and giddiness
CPT/HCPCS: 36000; 36415; 71045; 80053; 83735; 84484; 85025; 93005; 93041; 94760; 99284

== ENCOUNTER 2020-07-07 21:27 | Emergency (ER) | payer OTHER ==
[2020-07-07] MEDS ORDERED: DELTASONE 20 MG PO ONE (22:13)
[2020-07-07] MEDS ORDERED: DELTASONE 20 MG ONE (22:52)
[2020-07-07 23:17] VITALS: BP 110/59; PULSE 90; O2SAT 99
--- NOTE | 2020-07-07 23:24 | ERPHSYRPT ---
- History of Present Illness Time Seen by Provider: 07/07/20 21:50 Source: patient Exam Limitations: no limitations Patient Subjective Stated Complaint: pt c/o asthma attack with wheezing Triage Nursing Assessment: pt c/o ashtma attack with wheezing, took albuterol neb at home and inhaler at home. No relief. Ambulance was called and she received albuterol neb in route. Pt c/o asthmatic cough and chest hurts due to coughing hard during attack. No cough currently. Pt 98% on rm air, denies sob or c/p at this time. Physician History: Patient is a 39-year-old female with a history of asthma presents to our ED with an asthma exacerbation. Patient states she was wheezing felt short of breath. Patient was coughing patient treated herself with albuterol at home. No significant relief. Patient called 911. She received an albuterol treatment in route. Symptoms significantly improved. Upon arrival lungs were clear. Patient denied short of breath. Patient denies chest pain. Patient has some chest discomfort only upon coughing. No nausea vomiting or diaphoresis.. Patient states she now wants to be discharged she feels well. Patient voices no other complaints concerns at this time. Timing/Duration: today Severity: moderate Modifying Factors: Improves With: nothing Associated Symptoms: denies symptoms, shortness of breath, No vomiting, No abdominal pain, No chest pain, No fever, No loss of appetite, No malaise Allergies/Adverse Reactions: Sulfa (Sulfonamide Antibiotics) [Sulfa(Sulfonamide Antibiotics)] Allergy (Mild, Verified 07/07/20 21:53) Rash rash Home Medications: Metformin HCl 500 mg [Glucophage 500 MG] 500 mg PO DAILY 07/14/14 [History] Citalopram Hydrobromide 20 mg* [ceLEXa 20 MG] 20 mg PO DAILY 07/24/14 [History] Famotidine 40 mg PO BID 03/09/16 [History] Metformin HCl 500 mg [Glucophage 500 MG] 250 mg PO DAILY 03/09/16 [History] Diphenhydramine HCl 25 mg [Benadryl 25 mg Capsule] 25 mg PO QAM 05/28/16 [History] Naproxen 375 mg [Naprosyn 375 mg] 375 mg PO BID 08/16/16 [History] Furosemide [Lasix] 20 mg PO UD 09/15/16 [History] SUMAtriptan succinate [Imitrex 50 mg] 50 mg PO DAILY PRN PRN 09/15/16 [History] Levothyroxine Sodium 75 Mcg [Synthroid 75 Mcg] 75 mcg PO DAILY 11/04/16 [History] Rivaroxaban 10 mg Tablet [Xarelto 10 mg Tablet] 20 mg PO DAILY 08/28/17 [History] Topiramate 25 mg [Topamax 25 MG] 50 mg PO BID 10/14/17 [History] Gabapentin 400 mg [Neurontin 400 MG] 400 mg PO BID 12/07/18 [History] Aspirin 81 mg PO DAILY 03/02/20 [History] Hx Tetanus, Diphtheria Vaccination/Date Given: Yes Hx Influenza Vaccination/Date Given: Yes Hx Pneumococcal Vaccination/Date Given: No Immunizations Up to Date: Yes Travel Risk - International Travel Have you traveled outside of the country in past 3 weeks: No - Coronavirus Screening Are you exhibiting any of the following symptoms?: No Close contact with a COVID-19 positive Pt in past 14-21 Days: No - Review of Systems Constitutional: No Symptoms, No Fever, No Chills Eyes: No Symptoms Ears, Nose, & Throat: No Symptoms Respiratory: No Symptoms, No Cough, No Dyspnea Cardiac: No Symptoms, No Chest Pain, No Edema, No Syncope Abdominal/Gastrointestinal: No Symptoms, No Abdominal Pain, No Nausea, No Vomiting, No Diarrhea Genitourinary Symptoms: No Symptoms, No Dysuria Musculoskeletal: No Symptoms, No Back Pain, No Neck Pain Skin: No Symptoms, No Rash Neurological: No Symptoms, No Dizziness, No Focal Weakness, No Sensory Changes Psychological: No Symptoms Endocrine: No Symptoms Hematologic/Lymphatic: No Symptoms Immunological/Allergic: No Symptoms All Other Systems: Reviewed and Negative - Past Medical History Pertinent Past Medical History: Yes Neurological History: No Pertinent History ENT History: No Pertinent History Cardiac History: Congestive Heart Failure, High Cholesterol, Hypertension, Other Respiratory History: Asthma, Bronchitis Endocrine Medical History: Diabetes Type II Musculoskeletal History: No Pertinent History GI Medical History: GERD History: No Pertinent History Psycho-Social History: Anxiety, Depression Female Reproductive Disorders: Fibroids Other Medical History: Cath Report 09/25/19 coronary arteries clean, leaky heart valve. ITP - Past Surgical History Past Surgical History: Yes Neuro Surgical History: No Pertinent History Cardiac: Cardiac Catheterization Respiratory: No Pertinent History Gastrointestinal: No Pertinent History Genitourinary: No Pertinent History Musculoskeletal: Other Female Surgical History: No Pertinent History Other Surgical History: bunion to right foot - Social History Smoking Status: Never smoker Exposure to second hand smoke: No Alcohol Use: None Drug Use: none Patient Lives Alone: No Significant Family History: no pertinent family hx, heart disease, hypertension - Female History Hx Now: No - Nursing Vital Signs Nursing Vital Signs: Initial Vital Signs Temperature 98.4 F 07/07/20 21:45 Pulse Rate 95 H 07/07/20 21:45 Respiratory Rate 20 07/07/20 21:45 Blood Pressure 114/70 07/07/20 21:45 O2 Sat by Pulse Oximetry 99 07/07/20 21:45 Pain Scale Pain Intensity 0 - Physical Exam General Appearance: no apparent distress, alert Eye Exam: PERRL/EOMI, eyes nml inspection Ears, Nose, Throat Exam: normal ENT inspection, TMs normal, pharynx normal, moist mucous membranes Neck Exam: normal inspection, non-tender, supple, full range of motion Respiratory Exam: normal breath sounds, lungs clear, No respiratory distress, No accessory muscle use Cardiovascular Exam: regular rate/rhythm, normal heart sounds, normal peripheral pulses Gastrointestinal/Abdomen Exam: soft, normal bowel sounds, No tenderness, No mass Back Exam: normal inspection, normal range of motion, No CVA tenderness, No vertebral tenderness Extremity Exam: normal inspection, normal range of motion, pelvis stable Neurologic Exam: alert, 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, cooperative, normal mood/affect, nml cerebellar function, nml station & gait, sensation nml, No motor deficits Skin Exam: normal color, warm, dry, No rash Lymphatic Exam: No adenopathy SpO2 Interpretation: normal SpO2: 99 O2 Delivery: Room Air - Course Nursing assessment & vital signs reviewed: Yes - Radiology Exams Chest X-ray Interpretation: Interpreted by me (Normal chest x-ray.) Ordered Tests: Active Orders 24 hr Category Date Time Status CHEST 1 VIEW (PORTABLE) Stat Exams 07/07/20 22:12 Taken Medication Summary Discontinued Medications Generic Name Dose Route Start Last Admin Trade Name Freq PRN Reason Stop Dose Admin Prednisone 60 mg 07/07/20 22:13 07/07/20 22:52 Deltasone 20 Mg PO 07/07/20 22:14 60 mg STAT ONE Administration Prednisone Confirm 07/07/20 22:52 Deltasone 20 Mg Administered 07/07/20 22:53 Dose 60 mg .ROUTE .STK-MED ONE - Progress Progress: improved Progress Note: Patient received a dose of prednisone. Patient observed. Vital stable. Patient ambulated in our ED. Patient maintain normal sats. No chest pain or shortness of breath. Patient feels well. Patient requesting discharge. No further work-up indicated at this time. Will discharge home. Patient agrees to follow-up with her primary care doctor within 48 hours for reevaluation. 07/07/20 Counseled pt/family regarding: diagnosis, need for follow-up, rad results - Departure Departure Disposition: Home Clinical Impression: Asthma exacerbation Condition: Stable Critical Care Time: No Referrals: TIM MAGUIRE MD [Primary Care Provider] - Additional Instructions: Discharge/Care Plan JP MASON was seen on 07/07/20 in the Emergency Room. The patient was counseled regarding Diagnosis,Lab results, Imaging studies, need for follow up and when to return to the Emergency Room. Prescriptions given: Discharge Note I have spoken with the patient and/or caregivers. I have explained the patient's condition, diagnosis and treatment plan based on the information available to me at this time. I have answered the patient's and/or caregiver's questions and addressed any concerns. The patient and/or caregivers have as good understanding of the patient's diagnosis, condition and treatment plan as can be expected at this point. The vital signs have been stable. The patient's condition is stable and appropriate for discharge from the emergency department. The patient will pursue further outpatient evaluation with the primary care physician or other designated or consulting physician as outlined in the discharge instructions. The patient and/or caregivers are agreeable to this plan of care and follow-up instructions have been explained in detail. The patient and/or caregivers have received these instruction. The patient/and or caregivers are aware that any significant change in condition or worsening of symptoms should prompt an immediate return to this or the closest emergency department or call 911. Prescriptions: Prednisone 10 mg [Deltasone 10 mg] 40 mg PO DAILY 3 Days #12 tablet
--- NOTE | 2020-07-08 08:38 | XRAY ---
Indication: Short of breath. Comparison: June 10, 2020. Portable chest again demonstrates normal heart and lungs. Bony thorax intact. No new/acute findings.
== END 2020-07-07 23:32 | disposition home or self-care (01) ==
LOC: ED 21:27
DX: J45.901 Unspecified asthma with (acute) exacerbation (principal)
CPT/HCPCS: 71045; 99284; A9270-GY

== ENCOUNTER 2021-11-14 17:46 | Inpatient (IN) | payer OTHER ==
[2021-11-14] MEDS ORDERED: DUONEB 0.5-3 MG/3 ml Neb IH ONE ×3 (18:26→21:44)
[2021-11-14 18:43] LABS: Absolute Neutrophil Ct (ANC) 4.27 x10^3/uL (1.4-6.9); Basophil (Absolute #) 0.03 x10^3/uL (0-0.4); Eosinophil % 1.5 % (0.00-5.0); Eosinophil (Absolute #) 0.09 x10^3/uL (0-0.5); Hematocrit 32.3 % (35-47); Hemoglobin 9.7 g/dL (12.0-16.0); Lymphocyte (Absolute #) 1.24 x10^3/uL (1.0-4.6); Lymphocytes % 20.4 % (24.0-44.0); Mean Cell Volume 89.2 fL (78-100); Mean Corpuscular Hemoglobin 26.8 pg (26-32); Mean Platelet Volume 9.3 fL (7.5-11.0); Monocytes % 4.9 % (0.0-12.0); Neutrophil % 70.2 % (36.0-66.0); Platelet Count 231 x10^3/uL (150-450); Red Blood Count 3.62 x10^6/uL (4.1-5.4); Red Cell Distribution Width 14.3 % (11.5-14.0); White Blood Count 6.1 x10^3/uL (4.0-10.5)
--- NOTE | 2021-11-14 18:52 | ERPHSYRPT ---
- History of Present Illness Time Seen by Provider: 11/14/21 17:58 Source: patient, EMS Exam Limitations: no limitations Patient Subjective Stated Complaint: Pt had an asthma attack while at home Triage Nursing Assessment: Pt brought to the ER by EMS, hypertensive, rates pain in her chest as 7/10, oxygen slowly dropping and is now at 92%, hx of asthma, pulses normal, oxygen placed on pt at 2L NC, skin n/w/d, lungs clear Physician History: 41 years old female with history of asthma presented in the ER via EMS with wylie dden increasing shortness of breath with wheezing. Patient reports she has been wheezing more than usual for the last couple of days probably from weather change. Patient is given DuoNeb and Solu-Medrol, placed on 2 L oxygen and currently improved with no wheezing or difficulty breathing. Complaining of generalized chest tightness and pressure. Has minimal nonproductive cough. No fever or chills reported. Timing/Duration: today, sudden, worse Severity of Dyspnea-Max: severe Severity of Dyspnea-Current: mild Possible Cause: unknown cause Modifying Factors: Improves With: albuterol nebulizer, oxygen. Worsens With: coughing Associated Symptoms: cough, chest pain/discomfort, wheezing, heaviness, tightness Allergies/Adverse Reactions: Sulfa (Sulfonamide Antibiotics) [Sulfa(Sulfonamide Antibiotics)] Allergy (Mild, Verified 11/14/21 17:57) Rash rash Home Medications: Metformin HCl 500 mg [Glucophage 500 MG] 1,000 mg PO BID 07/14/14 [History] Citalopram Hydrobromide 20 mg* [ceLEXa 20 MG] 20 mg PO DAILY 07/24/14 [History] Famotidine 40 mg PO BID 03/09/16 [History] Diphenhydramine HCl 25 mg [Benadryl 25 mg Capsule] 25 mg PO QAM 05/28/16 [History] Naproxen 375 mg [Naprosyn 375 mg] 375 mg PO BID 08/16/16 [History] Furosemide [Lasix] 20 mg PO UD 09/15/16 [History] Levothyroxine Sodium 75 Mcg [Synthroid 75 Mcg] 50 mcg PO DAILY 11/04/16 [History] Rivaroxaban 10 mg Tablet [Xarelto 10 mg Tablet] 20 mg PO DAILY 08/28/17 [History] Topiramate 25 mg [Topamax 25 MG] 50 mg PO BID 10/14/17 [History] Gabapentin [Neurontin ] 400 mg PO BID 12/07/18 [History] Aspirin 81 mg PO DAILY 03/02/20 [History] Atorvastatin Calcium 40 mg PO DAILY 11/14/21 [History] Insulin Detemir [Levemir] 60 unit SQ HS 11/14/21 [History] Lorazepam 0.5 mg [Ativan 0.5 MG] 0.5 mg PO BID 11/14/21 [History] Metoprolol Tartrate 50 mg [Lopressor 50 MG] 50 mg PO DAILY 11/14/21 [History] Montelukast Sodium 10 mg [Singulair 10 MG] 10 mg PO DAILY 11/14/21 [History] dilTIAZem HCL [Diltiazem 24Hr ER (Cd)] 120 mg PO DAILY 11/14/21 [History] Hx Tetanus, Diphtheria Vaccination/Date Given: Yes Hx Influenza Vaccination/Date Given: Yes Hx Pneumococcal Vaccination/Date Given: No Travel Risk - International Travel Have you traveled outside of the country in past 3 weeks: No - Coronavirus Screening Are you exhibiting any of the following symptoms?: No Close contact with a COVID-19 positive Pt in past 14-21 Days: No - Vaccine Status Have you recieved a Covid-19 vaccination: Yes C[employer] Hard: [place] - Vaccination Dates Date of 2cond Vaccination (if applicable): 2020 - Review of Systems Constitutional: No Symptoms Eyes: No Symptoms Ears, Nose, & Throat: No Symptoms Respiratory: Cough, Dyspnea, Wheezing Cardiac: Chest Pain Abdominal/Gastrointestinal: No Symptoms Genitourinary Symptoms: No Symptoms Musculoskeletal: No Symptoms Skin: No Symptoms Neurological: No Symptoms Endocrine: No Symptoms Hematologic/Lymphatic: No Symptoms Immunological/Allergic: No Symptoms - Past Medical History Pertinent Past Medical History: Yes Neurological History: No Pertinent History ENT History: No Pertinent History Cardiac History: Congestive Heart Failure, High Cholesterol, Hypertension, Other Respiratory History: Asthma, Bronchitis Endocrine Medical History: Diabetes Type II Musculoskeletal History: No Pertinent History GI Medical History: GERD History: No Pertinent History Psycho-Social History: Anxiety, Depression Female Reproductive Disorders: Fibroids Other Medical History: Cath Report 09/25/19 coronary arteries clean, leaky heart valve. ITP - Past Surgical History Past Surgical History: Yes Neuro Surgical History: No Pertinent History Cardiac: Cardiac Catheterization Respiratory: No Pertinent History Gastrointestinal: No Pertinent History Genitourinary: No Pertinent History Musculoskeletal: Other Female Surgical History: No Pertinent History Other Surgical History: bunion to right foot - Social History Smoking Status: Never smoker Exposure to second hand smoke: No Alcohol Use: None Drug Use: none Patient Lives Alone: No Significant Family History: no pertinent family hx, heart disease, hypertension - Female History Hx Now: (unkn) - Nursing Vital Signs Nursing Vital Signs: Initial Vital Signs Temperature 98.7 F 11/14/21 17:47 Pulse Rate 93 H 11/14/21 17:47 Blood Pressure 147/86 11/14/21 17:47 O2 Sat by Pulse Oximetry 93 L 11/14/21 17:47 Pain Scale Pain Intensity 6 - Physical Exam General Appearance: no apparent distress, alert Eye Exam: PERRL/EOMI, eyes nml inspection Ears, Nose, Throat Exam: hearing grossly normal, normal ENT inspection, normal pharynx Neck Exam: normal inspection, non-tender, supple, full range of motion Respiratory Exam: wheezing, No respiratory distress Cardiovascular/Chest Exam: normal heart sounds, regular rate/rhythm Abdominal/Gastrointestinal Exam: soft, No tenderness Extremity Exam: non-tender, normal range of motion Neurologic Exam: alert, 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, cooperative Skin Exam: normal color SpO2 Interpretation: O2 applied SpO2: 94 O2 Delivery: Nasal Cannula (2L) - Course EKG Interpreted by Me: RATE (82), Sinus Rhythm, NORMAL AXIS, NORMAL INTERVALS, Other (Nonspecific T wave changes;;; second EKG time 2237. Rate 156 rhythm atrial fibrillation anteroseptal Q waves,Nonspecific ST and T wave changes.) Ordered Tests: Active Orders 24 hr Category Date Time Status CHEST 1 VIEW (PORTABLE) Stat Exams 11/14/21 18:26 Taken BLOOD CULTURE Stat Lab 11/14/21 21:40 Received CBC W DIFF Stat Lab 11/14/21 18:41 Completed CMP Stat Lab 11/14/21 18:41 Completed CULTURE,URINE Stat Lab 11/14/21 19:37 Received HCG,QUALITATIVE URINE Stat Lab 11/14/21 19:37 Completed NT PRO BNP Stat Lab 11/14/21 18:41 Completed TROPONIN Q3H Lab 11/14/21 18:41 Completed TROPONIN Q3H Lab 11/14/21 21:40 Completed TROPONIN Q3H Lab 11/15/21 00:30 Ordered TROPONIN Q3H Lab 11/15/21 03:30 Ordered TROPONIN Q3H Lab 11/15/21 06:30 Ordered UA W/RFX CULTURE Stat Lab 11/14/21 19:37 Completed Respiratory Therapy Assessment DAILY RT 11/14/21 21:54 Active Transfer Order Routine Transfer 11/14/21 Ordered Medication Summary Generic Name Dose Route Start Last Admin Trade Name Freq PRN Reason Stop Dose Admin Diltiazem HCl 100 mls @ 5 mls/hr 11/14/21 22:42 11/14/21 23:05 Cardizem Drip 100 Mg/100 Ml D5w IV 12/14/21 22:41 10 mg/hr .Q20H PRN 10 mls/hr HEART RATE/ A-FIB Titration Protocol 5 MG/HR Discontinued Medications Generic Name Dose Route Start Last Admin Trade Name Freq PRN Reason Stop Dose Admin Albuterol/Ipratropium 3 ml 11/14/21 18:26 11/14/21 18:44 Ipratropium/Albuterol Sulfate 3 Ml Ampul.Neb 11/14/21 18:27 Not Given STAT ONE Albuterol/Ipratropium 3 ml 11/14/21 21:23 11/14/21 21:49 Ipratropium/Albuterol Sulfate 3 Ml Ampul.Neb IH 11/14/21 21:24 3 ml STAT ONE Administration Albuterol/Ipratropium Confirm 11/14/21 21:44 Ipratropium/Albuterol Sulfate 3 Ml Ampul.Neb Administered 11/14/21 21:45 Dose 3 ml IH .STK-MED ONE Diltiazem HCl 10 mg 11/14/21 22:42 11/14/21 22:48 Diltiazem Hcl Iv 5 Mg/Ml Vial IV 11/14/21 22:43 10 mg STAT ONE Administration Diltiazem HCl Confirm 11/14/21 22:44 Diltiazem Hcl Iv 5 Mg/Ml Vial Administered 11/14/21 22:45 Dose 50 mg IV .STK-MED ONE Ceftriaxone Sodium/Dextrose 2 g in 50 mls @ 100 mls/hr 11/14/21 21:22 11/14/21 22:27 Rocephin 2 Gm-D5w 50ml Bag IV 11/14/21 21:51 Infused STAT STA Infusion Azithromycin 500 mg in 250 mls @ 250 mls/hr 11/14/21 21:22 11/14/21 22:26 Zithromax 500 Mg/ 250 Ml Nacl Premix IV 11/14/21 22:21 250 mls/hr STAT STA 250 mls/hr Administration Ceftriaxone Sodium/Dextrose Confirm 11/14/21 21:42 Rocephin 2 Gm-D5w 50ml Bag Administered 11/14/21 21:43 Dose 2 g in 50 mls @ ud IV .STK-MED ONE Azithromycin Confirm 11/14/21 22:26 Zithromax 500 Mg/ 250 Ml Nacl Premix Administered 11/14/21 22:27 Dose 500 mg in 250 mls @ ud IV .STK-MED ONE Morphine Sulfate 4 mg 11/14/21 22:00 11/14/21 22:11 Morphine Sulfate 4 Mg/Ml Injection IV 11/14/21 22:01 4 mg STAT ONE Administration Morphine Sulfate Confirm 11/14/21 22:07 Morphine Sulfate 4 Mg/Ml Injection Administered 11/14/21 22:08 Dose 4 mg .ROUTE .STK-MED ONE Ondansetron HCl 4 mg 11/14/21 22:00 11/14/21 22:10 Ondansetron Hcl 4 Mg/2 Ml Vial IV 11/14/21 22:01 4 mg STAT ONE Administration Ondansetron HCl Confirm 11/14/21 22:07 Ondansetron Hcl 4 Mg/2 Ml Vial Administered 11/14/21 22:08 Dose 4 mg .ROUTE .STK-MED ONE Lab/Rad Data: Laboratory Result Diagrams 11/14/21 18:41 11/14/21 18:41 Laboratory Results 11/14/21 11/14/21 11/14/21 Range/Units 22:00 21:40 19:37 WBC (4.0-10.5) x10^3/uL RBC (4.1-5.4) x10^6/uL Hgb (12.0-16.0) g/dL Hct (35-47) % MCV (78-100) fL MCH (26-32) pg MCHC (32-36) g/dL RDW (11.5-14.0) % Plt Count (150-450) x10^3/uL MPV (7.5-11.0) fL Gran % (36.0-66.0) % Immature Gran % (Auto) (0.00-0.4) % Nucleat RBC Rel Count (0.00-0.1) % Eos # (Auto) (0-0.5) x10^3/uL Immature Gran # (Auto) (0.00-0.03) x10^3u/L Absolute Lymphs (auto) (1.0-4.6) x10^3/uL Absolute Monos (auto) (0.0-1.3) x10^3/uL Absolute Nucleated RBC (0.00-0.01) x10^3u/L Lymphocytes % (24.0-44.0) % Monocytes % (0.0-12.0) % Eosinophils % (0.00-5.0) % Basophils % (0.0-0.4) % Absolute Granulocytes (1.4-6.9) x10^3/uL Basophils # (0-0.4) x10^3/uL Sodium (137-145) mmol/L Potassium (3.5-5.1) mmol/L Chloride (98-107) mmol/L Carbon Dioxide (22-30) mmol/L Anion Gap (5-15) MEQ/L BUN (7-17) mg/dL Creatinine (0.52-1.04) mg/dL Estimated GFR ML/MIN Glucose (74-106) mg/dL Calcium (8.4-10.2) mg/dL Total Bilirubin (0.2-1.3) mg/dL AST (14-36) U/L ALT (0-35) U/L Alkaline Phosphatase (38-126) U/L Troponin I < 0.012 (0.000-0.034) ng/mL NT-Pro-B Natriuret Pep (0-450) pg/mL Serum Total Protein (6.3-8.2) g/dL Albumin (3.5-5.0) g/dL Urinalys Dipstick Clnc MAIN LAB Urine Color YELLOW (YELLOW) Urine Appearance CLOUDY (CLEAR) Urine pH 6.0 (5-6) Ur Specific [place] >=1.030 (1.005-1.025) POC Urine Protein Conf 100 (Negative) Urine Ketones TRACE (NEGATIVE) Urine Nitrite NEGATIVE (NEGATIVE) Urine Bilirubin NEGATIVE (NEGATIVE) Urine Urobilinogen 0.2 (0-1) mg/dL Urine Leukocytes SMALL (NEGATIVE) Urine WBC (Auto) 16-25 (0-5) /HPF Urine RBC (Auto) 3-5 (0-2) /HPF U Epithel Cells (Auto) MANY (FEW) /HPF Urine Bacteria (Auto) MANY (NEGATIVE) /HPF Urine RBC NEGATIVE (0-5) Chago/ul Unidentified Crystals 2-5 (NEGATIVE) /HPF Urine Mucus (Auto) SLIGHT (NEGATIVE) /HPF Ur Culture Indicated? YES Urine Glucose NEGATIVE (NEGATIVE) mg/dL Urine HCG, Qual (Negative) Influenza Type A Ag NEGATIVE (NEGATIVE) Influenza Type B Ag NEGATIVE (NEGATIVE) RSV (PCR) NEGATIVE (Negative) SARS-CoV-2 (PCR) NEGATIVE (NEGATIVE) 11/14/21 11/14/21 11/14/21 Range/Units 19:37 18:41 18:41 WBC (4.0-10.5) x10^3/uL RBC (4.1-5.4) x10^6/uL Hgb (12.0-16.0) g/dL Hct (35-47) % MCV (78-100) fL MCH (26-32) pg MCHC (32-36) g/dL RDW (11.5-14.0) % Plt Count (150-450) x10^3/uL MPV (7.5-11.0) fL Gran % (36.0-66.0) % Immature Gran % (Auto) (0.00-0.4) % Nucleat RBC Rel Count (0.00-0.1) % Eos # (Auto) (0-0.5) x10^3/uL Immature Gran # (Auto) (0.00-0.03) x10^3u/L Absolute Lymphs (auto) (1.0-4.6) x10^3/uL Absolute Monos (auto) (0.0-1.3) x10^3/uL Absolute Nucleated RBC (0.00-0.01) x10^3u/L Lymphocytes % (24.0-44.0) % Monocytes % (0.0-12.0) % Eosinophils % (0.00-5.0) % Basophils % (0.0-0.4) % Absolute Granulocytes (1.4-6.9) x10^3/uL Basophils # (0-0.4) x10^3/uL Sodium 138 (137-145) mmol/L Potassium 4.2 (3.5-5.1) mmol/L Chloride 103 (98-107) mmol/L Carbon Dioxide 28 (22-30) mmol/L Anion Gap 12.0 (5-15) MEQ/L BUN 17 (7-17) mg/dL Creatinine 0.81 (0.52-1.04) mg/dL Estimated GFR > 60.0 ML/MIN Glucose 217 H (74-106) mg/dL Calcium 8.8 (8.4-10.2) mg/dL Total Bilirubin 0.50 (0.2-1.3) mg/dL AST 25 (14-36) U/L ALT 37 H (0-35) U/L Alkaline Phosphatase 107 (38-126) U/L Troponin I < 0.012 (0.000-0.034) ng/mL NT-Pro-B Natriuret Pep 338 (0-450) pg/mL Serum Total Protein 6.4 (6.3-8.2) g/dL Albumin 3.6 (3.5-5.0) g/dL Urinalys Dipstick Clnc Urine Color (YELLOW) Urine Appearance (CLEAR) Urine pH (5-6) Ur Specific [place] (1.005-1.025) POC Urine Protein Conf (Negative) Urine Ketones (NEGATIVE) Urine Nitrite (NEGATIVE) Urine Bilirubin (NEGATIVE) Urine Urobilinogen (0-1) mg/dL Urine Leukocytes (NEGATIVE) Urine WBC (Auto) (0-5) /HPF Urine RBC (Auto) (0-2) /HPF U Epithel Cells (Auto) (FEW) /HPF Urine Bacteria (Auto) (NEGATIVE) /HPF Urine RBC (0-5) Chago/ul Unidentified Crystals (NEGATIVE) /HPF Urine Mucus (Auto) (NEGATIVE) /HPF Ur Culture Indicated? Urine Glucose (NEGATIVE) mg/dL Urine HCG, Qual NEGATIVE (Negative) Influenza Type A Ag (NEGATIVE) Influenza Type B Ag (NEGATIVE) RSV (PCR) (Negative) SARS-CoV-2 (PCR) (NEGATIVE) 11/14/21 Range/Units 18:41 WBC 6.1 (4.0-10.5) x10^3/uL RBC 3.62 L (4.1-5.4) x10^6/uL Hgb 9.7 L (12.0-16.0) g/dL Hct 32.3 L (35-47) % MCV 89.2 (78-100) fL MCH 26.8 (26-32) pg MCHC 30.0 L (32-36) g/dL RDW 14.3 H (11.5-14.0) % Plt Count 231 (150-450) x10^3/uL MPV 9.3 (7.5-11.0) fL Gran % 70.2 H (36.0-66.0) % Immature Gran % (Auto) 2.5 H (0.00-0.4) % Nucleat RBC Rel Count 0.0 (0.00-0.1) % Eos # (Auto) 0.09 (0-0.5) x10^3/uL Immature Gran # (Auto) 0.15 H (0.00-0.03) x10^3u/L Absolute Lymphs (auto) 1.24 (1.0-4.6) x10^3/uL Absolute Monos (auto) 0.30 (0.0-1.3) x10^3/uL Absolute Nucleated RBC 0.00 (0.00-0.01) x10^3u/L Lymphocytes % 20.4 L (24.0-44.0) % Monocytes % 4.9 (0.0-12.0) % Eosinophils % 1.5 (0.00-5.0) % Basophils % 0.5 (0.0-0.4) % Absolute Granulocytes 4.27 (1.4-6.9) x10^3/uL Basophils # 0.03 (0-0.4) x10^3/uL Sodium (137-145) mmol/L Potassium (3.5-5.1) mmol/L Chloride (98-107) mmol/L Carbon Dioxide (22-30) mmol/L Anion Gap (5-15) MEQ/L BUN (7-17) mg/dL Creatinine (0.52-1.04) mg/dL Estimated GFR ML/MIN Glucose (74-106) mg/dL Calcium (8.4-10.2) mg/dL Total Bilirubin (0.2-1.3) mg/dL AST (14-36) U/L ALT (0-35) U/L Alkaline Phosphatase (38-126) U/L Troponin I (0.000-0.034) ng/mL NT-Pro-B Natriuret Pep (0-450) pg/mL Serum Total Protein (6.3-8.2) g/dL Albumin (3.5-5.0) g/dL Urinalys Dipstick Clnc Urine Color (YELLOW) Urine Appearance (CLEAR) Urine pH (5-6) Ur Specific [place] (1.005-1.025) POC Urine Protein Conf (Negative) Urine Ketones (NEGATIVE) Urine Nitrite (NEGATIVE) Urine Bilirubin (NEGATIVE) Urine Urobilinogen (0-1) mg/dL Urine Leukocytes (NEGATIVE) Urine WBC (Auto) (0-5) /HPF Urine RBC (Auto) (0-2) /HPF U Epithel Cells (Auto) (FEW) /HPF Urine Bacteria (Auto) (NEGATIVE) /HPF Urine RBC (0-5) Chago/ul Unidentified Crystals (NEGATIVE) /HPF Urine Mucus (Auto) (NEGATIVE) /HPF Ur Culture Indicated? Urine Glucose (NEGATIVE) mg/dL Urine HCG, Qual (Negative) Influenza Type A Ag (NEGATIVE) Influenza Type B Ag (NEGATIVE) RSV (PCR) (Negative) SARS-CoV-2 (PCR) (NEGATIVE) - Progress Progress: improved Air Movement: fair Progress Note: 11/14/21 21:54 41 years old is evaluated for increasing shortness of breath wheezing. Patient is feeling better after DuoNeb and Solu-Medrol in route to the ER, given another DuoNeb. She is currently on 2 L oxygen with saturation around 94%. EKG showed sinus rhythm without any ST elevation and negative initial troponin. Normal white count, grossly unremarkable chemistries. Chest x-ray showed right-sided infiltrative process. Given a dose of antibiotics. Patient is ambulated in the ER and her oxygen saturation dropped to 88/89%. I believe patient would benefit with frequent neb treatments, steroids and antibiotics. Discussed with Dr. Chavez and patient is admitted. Plan discussed with patient who understand and agrees with it. 11/14/21 23:20 1 in the ER patient went into A. fib with RVR heart rate in 150s. She is started on Cardizem. Currently in 130s, discussed with Dr. Chavez and patient is being admitted to ICU. Blood Culture(s) Obtained: Yes Antibiotics given: Yes Discussed with Dr.: Mariajose Will see patient in: hospital (observation) Counseled pt/family regarding: lab results, diagnosis, rad results - Departure Departure Disposition: Home Clinical Impression: Acute asthma exacerbation, Atrial fibrillation with RVR Pneumonia Qualifiers: Pneumonia type: due to unspecified organism Laterality: right Lung location: lower lobe of lung Qualified Code(s): J18.9 - Pneumonia, unspecified organism Condition: Stable Critical Care Time: No Referrals: TIM MAGUIRE MD [Primary Care Provider] - Follow up/PCP as directed
[2021-11-14 19:17] LABS: ALBUMIN 3.6 g/dL (3.5-5.0); ALKALINE PHOSPHATASE 107 U/L (38-126); BLOOD UREA NITROGEN 17 mg/dL (7-17); CHLORIDE 103 mmol/L (98-107); Calcium 8.8 mg/dL (8.4-10.2); Carbon Dioxide 28 mmol/L (22-30); Creatinine 1 0.81 mg/dL (0.52-1.04); EST GLOMERULAR FILTRATION RATE > 60.0 ML/MIN; Glucose 217 mg/dL (74-106); NT PRO BNP 338 pg/mL (0-450); Potassium 4.2 mmol/L (3.5-5.1); SGOT/AST 25 U/L (14-36); SGPT/ALT 37 U/L (0-35); SODIUM 138 mmol/L (137-145); Total Protein 6.4 g/dL (6.3-8.2)
[2021-11-14 19:43] LABS: Appearance CLOUDY (CLEAR); Bilirubin NEGATIVE (NEGATIVE); Dipstick done @ ? MAIN LAB; Glucose NEGATIVE (NEGATIVE); Ketones TRACE (NEGATIVE); Nitrite NEGATIVE (NEGATIVE); Protein,Urine Dip 100 (Negative); RBC NEGATIVE Ery/ul (0-5); Specific Gravity >=1.030 (1.005-1.025); Urobilinogen 0.2 mg/dL (0-1)
[2021-11-14 19:46] LABS: Bacteria MANY /HPF (NEGATIVE); Epithelial Cells MANY /HPF (FEW); Mucus SLIGHT /HPF (NEGATIVE)
[2021-11-14 19:53] LABS: Urine Cultured Indicated? YES
[2021-11-14] MEDS ORDERED: ROCEPHIN 2 Gm-D5w 50ML BAG** 2 G/50 ML IVPB IV STA (21:22)
[2021-11-14] MEDS ORDERED: Zithromax 500 MG/ 250 ML NaCl Premix 500 MG/250 ML IVPB IV STA (21:22)
[2021-11-14] MEDS ORDERED: ROCEPHIN 2 Gm-D5w 50ML BAG** 2 G/50 ML IVPB IV ONE (21:42)
[2021-11-14] MEDS ORDERED: MORPHINE SULFATE 4 MG INJ IV ONE (22:00)
[2021-11-14] MEDS ORDERED: Zofran 4 MG/2 ML VIAL IV ONE (22:00)
[2021-11-14] MEDS ORDERED: MORPHINE SULFATE 4 MG INJ ONE (22:07)
[2021-11-14] MEDS ORDERED: Zofran 4 MG/2 ML VIAL ONE (22:07)
[2021-11-14] MEDS ORDERED: Zithromax 500 MG/ 250 ML NaCl Premix 500 MG/250 ML IVPB IV ONE (22:26)
[2021-11-14 22:41] LABS: INFLUENZA A NEGATIVE (NEGATIVE); INFLUENZA B NEGATIVE (NEGATIVE); RESPIRATORY SYNCTIAL VIRUS NEGATIVE (Negative); SARS-CoV-2 Xpert Express NEGATIVE (NEGATIVE)
[2021-11-14] MEDS ORDERED: Cardizem IV 50 MG/10 ML IV ONE ×3 (22:42→23:50)
[2021-11-14] MEDS ORDERED: CARDIZEM DRIP 100 MG/100 ML D5W 100 ML IV PRN (22:42)
[2021-11-15] MEDS ORDERED: TYLENOL 325 MG PO PRN (00:25)
[2021-11-15] MEDS ORDERED: Zofran 4 MG/2 ML VIAL IV PRN (00:25)
[2021-11-15] MEDS: MORPHINE SULFATE 2 MG INJ IV PRN ×6 (01:00→21:16)
[2021-11-15] MEDS: solu-MEDROL 80 MG, Sterile H2O 10 ml 2 ML IV SCH ×8 (01:05→17:01)
[2021-11-15] MEDS ORDERED: PROVENTIL 2.5 MG/3 ML NEB IH PRN (01:29)
[2021-11-15] MEDS: HUMALOG SQ PRN ×5 (01:33→21:48)
[2021-11-15] MEDS: DUONEB 0.5-3 MG/3 ml Neb IH SCH ×4 (01:38→19:10)
[2021-11-15] MEDS ORDERED: Sterile H2O 10 ml IJ ONE (05:56)
[2021-11-15] MEDS ORDERED: solu-MEDROL ONE ×2 (05:56→16:41)
[2021-11-15 06:18] LABS: Absolute Neutrophil Ct (ANC) 10.41 x10^3/uL (1.4-6.9); Basophil (Absolute #) 0.03 x10^3/uL (0-0.4); Eosinophil (Absolute #) 0 x10^3/uL (0-0.5); Hematocrit 31.7 % (35-47); Hemoglobin 9.9 g/dL (12.0-16.0); Lymphocyte (Absolute #) 0.89 x10^3/uL (1.0-4.6); Lymphocytes % 7.6 % (24.0-44.0); Mean Cell Volume 85.7 fL (78-100); Mean Corpuscular Hemoglobin 26.8 pg (26-32); Mean Corpuscular Hgb Concent. 31.2 g/dL (32-36); Mean Platelet Volume 9.6 fL (7.5-11.0); Monocyte (Absolute #) 0.23 x10^3/uL (0.0-1.3); Neutrophil % 88.6 % (36.0-66.0); Platelet Count 265 x10^3/uL (150-450); Red Cell Distribution Width 14.6 % (11.5-14.0); White Blood Count 11.7 x10^3/uL (4.0-10.5)
[2021-11-15 06:39] LABS: ALBUMIN 3.6 g/dL (3.5-5.0); ALKALINE PHOSPHATASE 99 U/L (38-126); ANION GAP 13.8 MEQ/L (5-15); BLOOD UREA NITROGEN 17 mg/dL (7-17); CHLORIDE 102 mmol/L (98-107); Calcium 8.7 mg/dL (8.4-10.2); Carbon Dioxide 25 mmol/L (22-30); Creatinine 1 0.49 mg/dL (0.52-1.04); EST GLOMERULAR FILTRATION RATE > 60.0 ML/MIN; Glucose 219 mg/dL (74-106); Potassium 4.4 mmol/L (3.5-5.1); SGOT/AST 33 U/L (14-36); SGPT/ALT 42 U/L (0-35); SODIUM 136 mmol/L (137-145); Total Protein 6.8 g/dL (6.3-8.2)
--- NOTE | 2021-11-15 07:38 | XRAY ---
Indication: Short of breath. Comparison: July 07, 2020. Portable chest now demonstrates borderline cardiomegaly with mild pulmonary congestion concerning for early/mild cardiac decompensation versus fluid overload. Superimposed pneumonia not completely excluded. Bony thorax intact.
--- NOTE | 2021-11-15 07:43 | PCM.HP ---
History of Present Illness - Chief Complaint Chief Complaint: Pneumonia, Afib History of Present Illness: is a 41 year old female who presented to the ER with acute onset of shortness of breath and pain in her chest, she has had some cough. hx of a fib and developed RVR in the ER, she is currently off cardizem in sinus rhythm not requiring any oxgen currently.. - Review of Systems Constitutional: No Fever, No Chills Respiratory: Cough, Short Of Breath, Wheezing Cardiac: No Chest Pain, No Edema, No Syncope Abdominal/Gastrointestinal: No Abdominal Pain, No Nausea, No Vomiting, No Diarrhea Skin: No Rash All Other Systems: Reviewed and Negative Medications & Allergies Home Medications: Home Medication List Metformin HCl 500 mg [Glucophage 500 MG] 1,000 mg PO BID 07/14/14 [History Confirmed 11/14/21] Citalopram Hydrobromide 20 mg* [ceLEXa 20 MG] 20 mg PO DAILY 07/24/14 [History Confirmed 11/14/21] Famotidine 40 mg PO BID 03/09/16 [History Confirmed 11/14/21] Diphenhydramine HCl 25 mg [Benadryl 25 mg Capsule] 25 mg PO HS 05/28/16 [History Confirmed 11/15/21] Naproxen 375 mg [Naprosyn 375 mg] 375 mg PO BID 08/16/16 [History Confirmed 11/14/21] Levothyroxine Sodium 75 Mcg [Synthroid 75 Mcg] 50 mcg PO DAILY 11/04/16 [History Confirmed 11/14/21] Rivaroxaban 10 mg Tablet [Xarelto 10 mg Tablet] 20 mg PO DAILY 08/28/17 [History Confirmed 11/14/21] Topiramate 25 mg [Topamax 25 MG] 50 mg PO BID 10/14/17 [History Confirmed 11/14/21] Gabapentin [Neurontin ] 400 mg PO BID 12/07/18 [History Confirmed 11/14/21] Albuterol/Ipratropium 3ml Neb* [DUONEB 0.5-3 MG/3 ml Neb] 3 ml NEBULIZE Q4H PRN PRN #1 box 04/25/19 [Rx Confirmed 11/14/21] Aspirin 81 mg PO DAILY 03/02/20 [History Confirmed 11/14/21] Atorvastatin Calcium 40 mg PO HS 11/14/21 [History Confirmed 11/15/21] Insulin Detemir [Levemir] 60 unit SQ HS 11/14/21 [History Confirmed 11/14/21] Lorazepam 0.5 mg [Ativan 0.5 MG] 0.5 mg PO BID 11/14/21 [History Confirmed 11/14/21] Metoprolol Tartrate 50 mg [Lopressor 50 MG] 50 mg PO DAILY 11/14/21 [History Confirmed 11/14/21] dilTIAZem HCL [Diltiazem 24Hr ER (Cd)] 120 mg PO DAILY 11/14/21 [History Confirmed 11/14/21] Albuterol Sulfate [Proair Hfa] 2 puff IH Q4H PRN PRN 11/15/21 [History Confirmed 11/15/21] Allergies/Adverse Reactions: Allergies Allergy/AdvReac Type Severity Reaction Status Date / Time Sulfa (Sulfonamide Allergy Mild Rash Verified 11/14/21 17:57 Antibiotics) [Sulfa(Sulfonamide Antibiotics)] - Past Medical History Past Medical History: Yes Neurological History: Migraines, Peripheral Neuropathy ENT History: No Pertinent History Cardiac History: Congestive Heart Failure, High Cholesterol, Hypertension, Other Respiratory History: Asthma, Bronchitis, Pneumonia, Sleep Apnea Endocrine Medical History: Diabetes Type II, Hypothyroidism Musculoskelatal History: No Pertinent History GI Medical History: GERD History: No Pertinent History Pyscho-Social History: Anxiety, Depression Reproductive Disorders: Fibroids Comment: Cath Report 09/25/19 coronary arteries clean, leaky heart valve. ITP - Female History Are you now?: No - Past Surgical History Past Surgical History: Yes Neuro Surgical History: No Pertinent History Cardiac History: Cardiac Catheterization Respiratory Surgery: No Pertinent History GI Surgical History: No Pertinent History Genitourinary Surgical Hx: No Pertinent History Musculskeletal Surgical Hx: Other Female Surgical History: No Pertinent History Other Surgical History: bunion to right foot - Social History Smoking Status: Never smoker Exposure to second hand smoke: No Alcohol: None Drug Use: none Significant Family History: no pertinent family hx, heart disease, hypertension - Physical Exam Vital Signs: Vital Signs - 24 hr Temp Pulse Resp BP BP Pulse Ox 11/15/21 07:27 109 H 11/15/21 07:00 98.0 F 109 H 17 127/82 11/15/21 06:50 70 17 90/44 11/15/21 06:12 75 14 111/79 11/15/21 06:00 75 12 111/79 97 11/15/21 05:00 75 19 112/63 94 L 11/15/21 04:50 79 16 112/63 11/15/21 04:35 78 17 113/49 11/15/21 04:00 77 18 113/49 95 11/15/21 03:42 76 15 116/60 11/15/21 03:00 78 16 117/63 94 L 11/15/21 02:50 78 16 117/63 11/15/21 02:11 79 16 11/15/21 02:00 78 13 123/87 94 L 11/15/21 01:50 80 16 123/87 11/15/21 01:36 108 H 17 110/68 11/15/21 01:31 128 H 22 97 11/15/21 01:16 123 H 18 130/74 11/15/21 01:00 128 H 21 130/74 95 11/15/21 00:42 98.0 F 133 H 17 131/71 131/71 95 11/15/21 00:00 117 H 18 132/91 93 L 11/14/21 23:59 131 H 18 131/95 95 11/14/21 23:50 131 H 16 137/90 11/14/21 23:22 94 L 11/14/21 23:05 146 H 18 119/78 11/14/21 23:00 129 H 15 133/92 94 L 11/14/21 22:50 156 H 18 114/71 11/14/21 22:30 126 H 18 144/98 97 11/14/21 21:49 97 H 24 96 11/14/21 21:14 94 H 18 135/87 97 11/14/21 17:47 98.7 F 93 H 147/86 94 L General Appearance: no apparent distress, obese Neurologic Exam: alert, 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 Respiratory Exam: wheezing Cardiovascular Exam: regular rate/rhythm, normal heart sounds, normal peripheral pulses Gastrointestinal/Abdomen Exam: soft, normal bowel sounds, No tenderness, No mass Extremity Exam: normal inspection Skin Exam: normal color, warm, dry, No rash Results - Labs Lab/Micro Results: Lab Results-Last 24 Hours 11/14/21 11/14/21 11/14/21 Range/Units 18:41 18:41 18:41 WBC 6.1 (4.0-10.5) x10^3/uL RBC 3.62 L (4.1-5.4) x10^6/uL Hgb 9.7 L (12.0-16.0) g/dL Hct 32.3 L (35-47) % MCV 89.2 (78-100) fL MCH 26.8 (26-32) pg MCHC 30.0 L (32-36) g/dL RDW 14.3 H (11.5-14.0) % Plt Count 231 (150-450) x10^3/uL MPV 9.3 (7.5-11.0) fL Gran % 70.2 H (36.0-66.0) % Immature Gran % (Auto) 2.5 H (0.00-0.4) % Nucleat RBC Rel Count 0.0 (0.00-0.1) % Eos # (Auto) 0.09 (0-0.5) x10^3/uL Immature Gran # (Auto) 0.15 H (0.00-0.03) x10^3u/L Absolute Lymphs (auto) 1.24 (1.0-4.6) x10^3/uL Absolute Monos (auto) 0.30 (0.0-1.3) x10^3/uL Absolute Nucleated RBC 0.00 (0.00-0.01) x10^3u/L Lymphocytes % 20.4 L (24.0-44.0) % Monocytes % 4.9 (0.0-12.0) % Eosinophils % 1.5 (0.00-5.0) % Basophils % 0.5 (0.0-0.4) % Absolute Granulocytes 4.27 (1.4-6.9) x10^3/uL Basophils # 0.03 (0-0.4) x10^3/uL Sodium 138 (137-145) mmol/L Potassium 4.2 (3.5-5.1) mmol/L Chloride 103 (98-107) mmol/L Carbon Dioxide 28 (22-30) mmol/L Anion Gap 12.0 (5-15) MEQ/L BUN 17 (7-17) mg/dL Creatinine 0.81 (0.52-1.04) mg/dL Estimated GFR > 60.0 ML/MIN Glucose 217 H (74-106) mg/dL POC Glucometer (74 to 106) mg/dL Calcium 8.8 (8.4-10.2) mg/dL Total Bilirubin 0.50 (0.2-1.3) mg/dL AST 25 (14-36) U/L ALT 37 H (0-35) U/L Alkaline Phosphatase 107 (38-126) U/L Troponin I < 0.012 (0.000-0.034) ng/mL NT-Pro-B Natriuret Pep 338 (0-450) pg/mL Serum Total Protein 6.4 (6.3-8.2) g/dL Albumin 3.6 (3.5-5.0) g/dL Urinalys Dipstick Clnc Urine Color (YELLOW) Urine Appearance (CLEAR) Urine pH (5-6) Ur Specific [place] (1.005-1.025) POC Urine Protein Conf (Negative) Urine Ketones (NEGATIVE) Urine Nitrite (NEGATIVE) Urine Bilirubin (NEGATIVE) Urine Urobilinogen (0-1) mg/dL Urine Leukocytes (NEGATIVE) Urine WBC (Auto) (0-5) /HPF Urine RBC (Auto) (0-2) /HPF U Epithel Cells (Auto) (FEW) /HPF Urine Bacteria (Auto) (NEGATIVE) /HPF Urine RBC (0-5) Chago/ul Unidentified Crystals (NEGATIVE) /HPF Urine Mucus (Auto) (NEGATIVE) /HPF Ur Culture Indicated? Urine Glucose (NEGATIVE) mg/dL Urine HCG, Qual (Negative) Influenza Type A Ag (NEGATIVE) Influenza Type B Ag (NEGATIVE) RSV (PCR) (Negative) SARS-CoV-2 (PCR) (NEGATIVE) 11/14/21 11/14/21 11/14/21 Range/Units 19:37 19:37 21:40 WBC (4.0-10.5) x10^3/uL RBC (4.1-5.4) x10^6/uL Hgb (12.0-16.0) g/dL Hct (35-47) % MCV (78-100) fL MCH (26-32) pg MCHC (32-36) g/dL RDW (11.5-14.0) % Plt Count (150-450) x10^3/uL MPV (7.5-11.0) fL Gran % (36.0-66.0) % Immature Gran % (Auto) (0.00-0.4) % Nucleat RBC Rel Count (0.00-0.1) % Eos # (Auto) (0-0.5) x10^3/uL Immature Gran # (Auto) (0.00-0.03) x10^3u/L Absolute Lymphs (auto) (1.0-4.6) x10^3/uL Absolute Monos (auto) (0.0-1.3) x10^3/uL Absolute Nucleated RBC (0.00-0.01) x10^3u/L Lymphocytes % (24.0-44.0) % Monocytes % (0.0-12.0) % Eosinophils % (0.00-5.0) % Basophils % (0.0-0.4) % Absolute Granulocytes (1.4-6.9) x10^3/uL Basophils # (0-0.4) x10^3/uL Sodium (137-145) mmol/L Potassium (3.5-5.1) mmol/L Chloride (98-107) mmol/L Carbon Dioxide (22-30) mmol/L Anion Gap (5-15) MEQ/L BUN (7-17) mg/dL Creatinine (0.52-1.04) mg/dL Estimated GFR ML/MIN Glucose (74-106) mg/dL POC Glucometer (74 to 106) mg/dL Calcium (8.4-10.2) mg/dL Total Bilirubin (0.2-1.3) mg/dL AST (14-36) U/L ALT (0-35) U/L Alkaline Phosphatase (38-126) U/L Troponin I < 0.012 (0.000-0.034) ng/mL NT-Pro-B Natriuret Pep (0-450) pg/mL Serum Total Protein (6.3-8.2) g/dL Albumin (3.5-5.0) g/dL Urinalys Dipstick Clnc MAIN LAB Urine Color YELLOW (YELLOW) Urine Appearance CLOUDY (CLEAR) Urine pH 6.0 (5-6) Ur Specific [place] >=1.030 (1.005-1.025) POC Urine Protein Conf 100 (Negative) Urine Ketones TRACE (NEGATIVE) Urine Nitrite NEGATIVE (NEGATIVE) Urine Bilirubin NEGATIVE (NEGATIVE) Urine Urobilinogen 0.2 (0-1) mg/dL Urine Leukocytes SMALL (NEGATIVE) Urine WBC (Auto) 16-25 (0-5) /HPF Urine RBC (Auto) 3-5 (0-2) /HPF U Epithel Cells (Auto) MANY (FEW) /HPF Urine Bacteria (Auto) MANY (NEGATIVE) /HPF Urine RBC NEGATIVE (0-5) Chago/ul Unidentified Crystals 2-5 (NEGATIVE) /HPF Urine Mucus (Auto) SLIGHT (NEGATIVE) /HPF Ur Culture Indicated? YES Urine Glucose NEGATIVE (NEGATIVE) mg/dL Urine HCG, Qual NEGATIVE (Negative) Influenza Type A Ag (NEGATIVE) Influenza Type B Ag (NEGATIVE) RSV (PCR) (Negative) SARS-CoV-2 (PCR) (NEGATIVE) 11/14/21 11/15/21 11/15/21 Range/Units 22:00 00:00 01:28 WBC (4.0-10.5) x10^3/uL RBC (4.1-5.4) x10^6/uL Hgb (12.0-16.0) g/dL Hct (35-47) % MCV (78-100) fL MCH (26-32) pg MCHC (32-36) g/dL RDW (11.5-14.0) % Plt Count (150-450) x10^3/uL MPV (7.5-11.0) fL Gran % (36.0-66.0) % Immature Gran % (Auto) (0.00-0.4) % Nucleat RBC Rel Count (0.00-0.1) % Eos # (Auto) (0-0.5) x10^3/uL Immature Gran # (Auto) (0.00-0.03) x10^3u/L Absolute Lymphs (auto) (1.0-4.6) x10^3/uL Absolute Monos (auto) (0.0-1.3) x10^3/uL Absolute Nucleated RBC (0.00-0.01) x10^3u/L Lymphocytes % (24.0-44.0) % Monocytes % (0.0-12.0) % Eosinophils % (0.00-5.0) % Basophils % (0.0-0.4) % Absolute Granulocytes (1.4-6.9) x10^3/uL Basophils # (0-0.4) x10^3/uL Sodium (137-145) mmol/L Potassium (3.5-5.1) mmol/L Chloride (98-107) mmol/L Carbon Dioxide (22-30) mmol/L Anion Gap (5-15) MEQ/L BUN (7-17) mg/dL Creatinine (0.52-1.04) mg/dL Estimated GFR ML/MIN Glucose (74-106) mg/dL POC Glucometer 276 H (74 to 106) mg/dL Calcium (8.4-10.2) mg/dL Total Bilirubin (0.2-1.3) mg/dL AST (14-36) U/L ALT (0-35) U/L Alkaline Phosphatase (38-126) U/L Troponin I < 0.012 (0.000-0.034) ng/mL NT-Pro-B Natriuret Pep (0-450) pg/mL Serum Total Protein (6.3-8.2) g/dL Albumin (3.5-5.0) g/dL Urinalys Dipstick Clnc Urine Color (YELLOW) Urine Appearance (CLEAR) Urine pH (5-6) Ur Specific [place] (1.005-1.025) POC Urine Protein Conf (Negative) Urine Ketones (NEGATIVE) Urine Nitrite (NEGATIVE) Urine Bilirubin (NEGATIVE) Urine Urobilinogen (0-1) mg/dL Urine Leukocytes (NEGATIVE) Urine WBC (Auto) (0-5) /HPF Urine RBC (Auto) (0-2) /HPF U Epithel Cells (Auto) (FEW) /HPF Urine Bacteria (Auto) (NEGATIVE) /HPF Urine RBC (0-5) Chago/ul Unidentified Crystals (NEGATIVE) /HPF Urine Mucus (Auto) (NEGATIVE) /HPF Ur Culture Indicated? Urine Glucose (NEGATIVE) mg/dL Urine HCG, Qual (Negative) Influenza Type A Ag NEGATIVE (NEGATIVE) Influenza Type B Ag NEGATIVE (NEGATIVE) RSV (PCR) NEGATIVE (Negative) SARS-CoV-2 (PCR) NEGATIVE (NEGATIVE) 11/15/21 11/15/21 11/15/21 Range/Units 03:14 06:10 06:10 WBC 11.7 H (4.0-10.5) x10^3/uL RBC 3.70 L (4.1-5.4) x10^6/uL Hgb 9.9 L (12.0-16.0) g/dL Hct 31.7 L (35-47) % MCV 85.7 (78-100) fL MCH 26.8 (26-32) pg MCHC 31.2 L (32-36) g/dL RDW 14.6 H (11.5-14.0) % Plt Count 265 (150-450) x10^3/uL MPV 9.6 (7.5-11.0) fL Gran % 88.6 H (36.0-66.0) % Immature Gran % (Auto) 1.5 H (0.00-0.4) % Nucleat RBC Rel Count 0.0 (0.00-0.1) % Eos # (Auto) 0 (0-0.5) x10^3/uL Immature Gran # (Auto) 0.18 H (0.00-0.03) x10^3u/L Absolute Lymphs (auto) 0.89 L (1.0-4.6) x10^3/uL Absolute Monos (auto) 0.23 (0.0-1.3) x10^3/uL Absolute Nucleated RBC 0.00 (0.00-0.01) x10^3u/L Lymphocytes % 7.6 L (24.0-44.0) % Monocytes % 2.0 (0.0-12.0) % Eosinophils % 0.0 (0.00-5.0) % Basophils % 0.3 (0.0-0.4) % Absolute Granulocytes 10.41 H (1.4-6.9) x10^3/uL Basophils # 0.03 (0-0.4) x10^3/uL Sodium (137-145) mmol/L Potassium (3.5-5.1) mmol/L Chloride (98-107) mmol/L Carbon Dioxide (22-30) mmol/L Anion Gap (5-15) MEQ/L BUN (7-17) mg/dL Creatinine (0.52-1.04) mg/dL Estimated GFR ML/MIN Glucose (74-106) mg/dL POC Glucometer (74 to 106) mg/dL Calcium (8.4-10.2) mg/dL Total Bilirubin (0.2-1.3) mg/dL AST (14-36) U/L ALT (0-35) U/L Alkaline Phosphatase (38-126) U/L Troponin I < 0.012 < 0.012 (0.000-0.034) ng/mL NT-Pro-B Natriuret Pep (0-450) pg/mL Serum Total Protein (6.3-8.2) g/dL Albumin (3.5-5.0) g/dL Urinalys Dipstick Clnc Urine Color (YELLOW) Urine Appearance (CLEAR) Urine pH (5-6) Ur Specific [place] (1.005-1.025) POC Urine Protein Conf (Negative) Urine Ketones (NEGATIVE) Urine Nitrite (NEGATIVE) Urine Bilirubin (NEGATIVE) Urine Urobilinogen (0-1) mg/dL Urine Leukocytes (NEGATIVE) Urine WBC (Auto) (0-5) /HPF Urine RBC (Auto) (0-2) /HPF U Epithel Cells (Auto) (FEW) /HPF Urine Bacteria (Auto) (NEGATIVE) /HPF Urine RBC (0-5) Chago/ul Unidentified Crystals (NEGATIVE) /HPF Urine Mucus (Auto) (NEGATIVE) /HPF Ur Culture Indicated? Urine Glucose (NEGATIVE) mg/dL Urine HCG, Qual (Negative) Influenza Type A Ag (NEGATIVE) Influenza Type B Ag (NEGATIVE) RSV (PCR) (Negative) SARS-CoV-2 (PCR) (NEGATIVE) 11/15/21 Range/Units 06:10 WBC (4.0-10.5) x10^3/uL RBC (4.1-5.4) x10^6/uL Hgb (12.0-16.0) g/dL Hct (35-47) % MCV (78-100) fL MCH (26-32) pg MCHC (32-36) g/dL RDW (11.5-14.0) % Plt Count (150-450) x10^3/uL MPV (7.5-11.0) fL Gran % (36.0-66.0) % Immature Gran % (Auto) (0.00-0.4) % Nucleat RBC Rel Count (0.00-0.1) % Eos # (Auto) (0-0.5) x10^3/uL Immature Gran # (Auto) (0.00-0.03) x10^3u/L Absolute Lymphs (auto) (1.0-4.6) x10^3/uL Absolute Monos (auto) (0.0-1.3) x10^3/uL Absolute Nucleated RBC (0.00-0.01) x10^3u/L Lymphocytes % (24.0-44.0) % Monocytes % (0.0-12.0) % Eosinophils % (0.00-5.0) % Basophils % (0.0-0.4) % Absolute Granulocytes (1.4-6.9) x10^3/uL Basophils # (0-0.4) x10^3/uL Sodium 136 L (137-145) mmol/L Potassium 4.4 (3.5-5.1) mmol/L Chloride 102 (98-107) mmol/L Carbon Dioxide 25 (22-30) mmol/L Anion Gap 13.8 (5-15) MEQ/L BUN 17 (7-17) mg/dL Creatinine 0.49 L (0.52-1.04) mg/dL Estimated GFR > 60.0 ML/MIN Glucose 219 H (74-106) mg/dL POC Glucometer (74 to 106) mg/dL Calcium 8.7 (8.4-10.2) mg/dL Total Bilirubin 0.40 (0.2-1.3) mg/dL AST 33 (14-36) U/L ALT 42 H (0-35) U/L Alkaline Phosphatase 99 (38-126) U/L Troponin I (0.000-0.034) ng/mL NT-Pro-B Natriuret Pep (0-450) pg/mL Serum Total Protein 6.8 (6.3-8.2) g/dL Albumin 3.6 (3.5-5.0) g/dL Urinalys Dipstick Clnc Urine Color (YELLOW) Urine Appearance (CLEAR) Urine pH (5-6) Ur Specific [place] (1.005-1.025) POC Urine Protein Conf (Negative) Urine Ketones (NEGATIVE) Urine Nitrite (NEGATIVE) Urine Bilirubin (NEGATIVE) Urine Urobilinogen (0-1) mg/dL Urine Leukocytes (NEGATIVE) Urine WBC (Auto) (0-5) /HPF Urine RBC (Auto) (0-2) /HPF U Epithel Cells (Auto) (FEW) /HPF Urine Bacteria (Auto) (NEGATIVE) /HPF Urine RBC (0-5) Chago/ul Unidentified Crystals (NEGATIVE) /HPF Urine Mucus (Auto) (NEGATIVE) /HPF Ur Culture Indicated? Urine Glucose (NEGATIVE) mg/dL Urine HCG, Qual (Negative) Influenza Type A Ag (NEGATIVE) Influenza Type B Ag (NEGATIVE) RSV (PCR) (Negative) SARS-CoV-2 (PCR) (NEGATIVE) Accuchecks Date 11/15/21 Time 01:30 - Radiology Impressions Radiology Exams & Impressions: Radiology Procedures Category Date Time Status CHEST 1 VIEW (PORTABLE) Stat Exams 11/14/21 18:26 Completed - Other Procedures and Tests Respiratory Therapy 11/15/21 00:25 Oxygen Nasal Cannula 2 lpm 11/15/21 01:28 BiPap/CPAP ROUTINE 11/15/21 07:34 Respiratory Therapy Assessment DAILY Assessment/Plan (1) Atrial fibrillation with RVR Current Visit: Yes Status: Acute Assessment & Plan: converted, continue home meds including xarelto and cardizem Code(s): I48.91 - UNSPECIFIED ATRIAL FIBRILLATION (2) Acute asthma exacerbation Current Visit: Yes Status: Acute Assessment & Plan: nebs and steroids (3) Pneumonia Current Visit: Yes Status: Acute Qualifiers: Pneumonia type: due to unspecified organism Laterality: right Lung location: lower lobe of lung Qualified Code(s): J18.9 - Pneumonia, unspecified organism Assessment & Plan: patient on rocephin and zithromax currently Code(s): J18.9 - PNEUMONIA, UNSPECIFIED ORGANISM
[2021-11-15] MEDS: ceLEXa 20 MG PO SCH (09:34)
[2021-11-15] MEDS: Lopressor 50 MG PO SCH (09:34)
[2021-11-15] MEDS: XARELTO 10 MG TABLET PO SCH (09:34)
[2021-11-15] MEDS: PROTONIX 40 MG IV IV SCH (09:34)
[2021-11-15] MEDS: Neurontin PO SCH ×2 (09:34→21:14)
[2021-11-15] MEDS: Ativan 0.5 MG PO SCH ×2 (09:35→21:15)
[2021-11-15] MEDS: Robitussin-Dm Syrup PO PRN (09:35)
[2021-11-15] MEDS: SYNTHROID 50 MCG PO SCH (09:35)
[2021-11-15] MEDS ORDERED: NON-FORMULARY ITEM (Topiramate 25 Mg*** [Topamax 25 Mg***] 25 MG Capsule) PO SCH (10:00)
[2021-11-15] MEDS ORDERED: SYNTHROID 75 MCG PO SCH (10:00)
[2021-11-15] MEDS ORDERED: NON-FORMULARY ITEM (Aspirin [Aspirin] 81 MG Tablet) PO SCH (10:00)
[2021-11-15] MEDS ORDERED: DILTIAZEM HCL 120 MG PO SCH (10:00)
[2021-11-15] MEDS ORDERED: NON-FORMULARY ITEM (Famotidine [Famotidine] 40 MG Tablet) PO SCH (10:00)
[2021-11-15] MEDS: NYSTOP POWDER 15 GM TP SCH ×2 (10:02→21:38)
[2021-11-15] MEDS: TOPIRAMATE PO SCH ×2 (10:02→21:15)
[2021-11-15] MEDS: ECOTRIN 81 MG PO SCH (10:02)
[2021-11-15] MEDS: Cardizem CD PO SCH (10:02)
[2021-11-15] MEDS: Pepcid 20 MG PO SCH ×2 (10:02→21:15)
[2021-11-15] MEDS: TYLENOL EXTRA STRENGTH 500 MG PO PRN (11:55)
[2021-11-15] MEDS: BENADRYL 25 MG CAPSULE PO PRN ×2 (14:27→21:15)
[2021-11-15] MEDS: Lantus Insulin SQ SCH (16:13)
[2021-11-15] MEDS: ZOCOR 20MG PO SCH (21:15)
[2021-11-15] MEDS: ROCEPHIN 1 Gm-D5w 50 ml Bag** 1 G/50 ML IVPB IV SCH (21:15)
[2021-11-15] MEDS: Zithromax 500 MG/ 250 ML NaCl Premix 500 MG/250 ML IVPB IV SCH (21:39)
[2021-11-15] MEDS ORDERED: Lantus Insulin SQ SCH (22:00)
[2021-11-15] MEDS ORDERED: ROCEPHIN 2 Gm-D5w 50ML BAG** 2 G/50 ML IVPB IV SCH (22:00)
[2021-11-15] MEDS ORDERED: LIPITOR 40MG PO SCH (22:00)
[2021-11-15] MEDS ORDERED: NON-FORMULARY ITEM (Insulin Detemir [Levemir] 100 UNIT/ML Vial) SQ SCH (22:00)
[2021-11-16] MEDS: solu-MEDROL 80 MG, Sterile H2O 10 ml 2 ML IV SCH ×10 (00:55→23:34)
[2021-11-16] MEDS: DUONEB 0.5-3 MG/3 ml Neb IH SCH ×4 (01:34→17:37)
[2021-11-16] MEDS: MORPHINE SULFATE 2 MG INJ IV PRN ×6 (02:14→23:34)
[2021-11-16] MEDS: Robitussin-Dm Syrup PO PRN ×3 (02:15→21:17)
[2021-11-16 04:59] LABS: Absolute Neutrophil Ct (ANC) 11.02 x10^3/uL (1.4-6.9); Basophil (Absolute #) 0.02 x10^3/uL (0-0.4); Eosinophil (Absolute #) 0 x10^3/uL (0-0.5); Hematocrit 31.7 % (35-47); Hemoglobin 9.9 g/dL (12.0-16.0); Lymphocyte (Absolute #) 1.09 x10^3/uL (1.0-4.6); Lymphocytes % 8.6 % (24.0-44.0); Mean Cell Volume 87.1 fL (78-100); Mean Corpuscular Hemoglobin 27.2 pg (26-32); Mean Corpuscular Hgb Concent. 31.2 g/dL (32-36); Monocyte (Absolute #) 0.35 x10^3/uL (0.0-1.3); Monocytes % 2.8 % (0.0-12.0); Platelet Count 271 x10^3/uL (150-450); Red Blood Count 3.64 x10^6/uL (4.1-5.4); Red Cell Distribution Width 15.1 % (11.5-14.0); White Blood Count 12.7 x10^3/uL (4.0-10.5)
[2021-11-16 05:32] LABS: ANION GAP 15.3 MEQ/L (5-15); BLOOD UREA NITROGEN 23 mg/dL (7-17); CHLORIDE 103 mmol/L (98-107); Calcium 8.9 mg/dL (8.4-10.2); Carbon Dioxide 26 mmol/L (22-30); Creatinine 1 0.67 mg/dL (0.52-1.04); EST GLOMERULAR FILTRATION RATE > 60.0 ML/MIN; Glucose 282 mg/dL (74-106); Potassium 4.5 mmol/L (3.5-5.1); SODIUM 140 mmol/L (137-145)
[2021-11-16] MEDS: BENADRYL 25 MG CAPSULE PO PRN ×2 (06:29→15:55)
[2021-11-16] MEDS: TYLENOL EXTRA STRENGTH 500 MG PO PRN (06:34)
[2021-11-16] MEDS: HUMALOG SQ PRN ×3 (07:14→21:30)
[2021-11-16] MEDS: Pepcid 20 MG PO SCH ×2 (08:59→21:13)
[2021-11-16] MEDS: PROTONIX 40 MG IV IV SCH (08:59)
[2021-11-16] MEDS: SYNTHROID 50 MCG PO SCH (09:00)
[2021-11-16] MEDS: Lopressor 50 MG PO SCH (09:00)
[2021-11-16] MEDS: Ativan 0.5 MG PO SCH ×2 (09:00→21:12)
[2021-11-16] MEDS: NYSTOP POWDER 15 GM TP SCH ×2 (09:00→21:13)
[2021-11-16] MEDS: ECOTRIN 81 MG PO SCH (09:00)
[2021-11-16] MEDS: Cardizem CD PO SCH (09:00)
[2021-11-16] MEDS: ceLEXa 20 MG PO SCH (09:00)
[2021-11-16] MEDS: Neurontin PO SCH ×2 (09:00→21:13)
[2021-11-16] MEDS: TOPIRAMATE PO SCH ×2 (09:00→21:13)
[2021-11-16] MEDS: XARELTO 10 MG TABLET PO SCH (09:00)
[2021-11-16 10:49] LABS: PROCALCITONIN 0.088 ng/mL (0.030-0.080); TSH, 3RD Generation 0.846 mIU/L (0.47-4.68)
[2021-11-16] MEDS: Lantus Insulin SQ SCH (17:07)
[2021-11-16] MEDS: ROCEPHIN 1 Gm-D5w 50 ml Bag** 1 G/50 ML IVPB IV SCH (21:13)
[2021-11-16] MEDS: ZOCOR 20MG PO SCH (21:13)
[2021-11-16] MEDS: Zithromax 500 MG/ 250 ML NaCl Premix 500 MG/250 ML IVPB IV SCH (21:48)
--- NOTE | 2021-11-16 23:56 | PCM.NOTE ---
Date and Time: 11/16/21 2355 Subjective Assessment: Patient is in for exacerbation of asthma,pneumonia and Afib RVR. She states when up to the bathroom she is very winded. She works as a [employer]. OBJECTIVE DATA Vital Signs: Vital Signs - 24 hr Temp Pulse Resp BP Pulse Ox 11/16/21 23:35 96.9 F 74 16 152/71 98 11/16/21 19:39 96.8 F 84 16 148/80 95 11/16/21 18:56 95 11/16/21 17:39 86 20 96 11/16/21 16:52 97.9 F 68 18 137/72 97 11/16/21 12:47 72 22 96 11/16/21 11:34 97.9 F 71 16 177/81 93 L 11/16/21 07:37 98.6 F 81 16 138/71 97 11/16/21 07:00 66 20 95 11/16/21 05:00 97.1 F 75 20 148/71 96 11/16/21 01:00 97.1 F 80 20 129/67 96 Pain Assessment - Last Documented Pain Intensity 10 Pain Scale Used 0-10 Pain Scale Intake and Output: Intake & Output 11/14/21 11/15/21 11/16/21 11/17/21 11:59 11:59 11:59 11:59 Intake Total 1140 480 Output Total 2000 Balance -860 480 Weight 159.9 kg 158.6 kg Lab Results: Lab Results-Last 24 Hours 11/16/21 11/16/21 11/16/21 Range/Units 04:20 04:20 04:20 WBC 12.7 H (4.0-10.5) x10^3/uL RBC 3.64 L (4.1-5.4) x10^6/uL Hgb 9.9 L (12.0-16.0) g/dL Hct 31.7 L (35-47) % MCV 87.1 (78-100) fL MCH 27.2 (26-32) pg MCHC 31.2 L (32-36) g/dL RDW 15.1 H (11.5-14.0) % Plt Count 271 (150-450) x10^3/uL MPV 10.0 (7.5-11.0) fL Gran % 87.0 H (36.0-66.0) % Immature Gran % (Auto) 1.4 H (0.00-0.4) % Nucleat RBC Rel Count 0.0 (0.00-0.1) % Eos # (Auto) 0 (0-0.5) x10^3/uL Immature Gran # (Auto) 0.18 H (0.00-0.03) x10^3u/L Absolute Lymphs (auto) 1.09 (1.0-4.6) x10^3/uL Absolute Monos (auto) 0.35 (0.0-1.3) x10^3/uL Absolute Nucleated RBC 0.00 (0.00-0.01) x10^3u/L Lymphocytes % 8.6 L (24.0-44.0) % Monocytes % 2.8 (0.0-12.0) % Eosinophils % 0.0 (0.00-5.0) % Basophils % 0.2 (0.0-0.4) % Absolute Granulocytes 11.02 H (1.4-6.9) x10^3/uL Basophils # 0.02 (0-0.4) x10^3/uL Sodium 140 (137-145) mmol/L Potassium 4.5 (3.5-5.1) mmol/L Chloride 103 (98-107) mmol/L Carbon Dioxide 26 (22-30) mmol/L Anion Gap 15.3 H (5-15) MEQ/L BUN 23 H (7-17) mg/dL Creatinine 0.67 (0.52-1.04) mg/dL Estimated GFR > 60.0 ML/MIN Glucose 282 H (74-106) mg/dL POC Glucometer (74 to 106) mg/dL Calcium 8.9 (8.4-10.2) mg/dL Procalcitonin 0.088 H (0.030-0.080) ng/mL TSH 3rd Generation 0.846 (0.47-4.68) mIU/L 11/16/21 11/16/21 11/16/21 Range/Units 07:11 11:16 16:31 WBC (4.0-10.5) x10^3/uL RBC (4.1-5.4) x10^6/uL Hgb (12.0-16.0) g/dL Hct (35-47) % MCV (78-100) fL MCH (26-32) pg MCHC (32-36) g/dL RDW (11.5-14.0) % Plt Count (150-450) x10^3/uL MPV (7.5-11.0) fL Gran % (36.0-66.0) % Immature Gran % (Auto) (0.00-0.4) % Nucleat RBC Rel Count (0.00-0.1) % Eos # (Auto) (0-0.5) x10^3/uL Immature Gran # (Auto) (0.00-0.03) x10^3u/L Absolute Lymphs (auto) (1.0-4.6) x10^3/uL Absolute Monos (auto) (0.0-1.3) x10^3/uL Absolute Nucleated RBC (0.00-0.01) x10^3u/L Lymphocytes % (24.0-44.0) % Monocytes % (0.0-12.0) % Eosinophils % (0.00-5.0) % Basophils % (0.0-0.4) % Absolute Granulocytes (1.4-6.9) x10^3/uL Basophils # (0-0.4) x10^3/uL Sodium (137-145) mmol/L Potassium (3.5-5.1) mmol/L Chloride (98-107) mmol/L Carbon Dioxide (22-30) mmol/L Anion Gap (5-15) MEQ/L BUN (7-17) mg/dL Creatinine (0.52-1.04) mg/dL Estimated GFR ML/MIN Glucose (74-106) mg/dL POC Glucometer 271 H 296 H 77 (74 to 106) mg/dL Calcium (8.4-10.2) mg/dL Procalcitonin (0.030-0.080) ng/mL TSH 3rd Generation (0.47-4.68) mIU/L 11/16/ Range/Units 21:28 WBC (4.0-10.5) x10^3/uL RBC (4.1-5.4) x10^6/uL Hgb (12.0-16.0) g/dL Hct (35-47) % MCV (78-100) fL MCH (26-32) pg MCHC (32-36) g/dL RDW (11.5-14.0) % Plt Count (150-450) x10^3/uL MPV (7.5-11.0) fL Gran % (36.0-66.0) % Immature Gran % (Auto) (0.00-0.4) % Nucleat RBC Rel Count (0.00-0.1) % Eos # (Auto) (0-0.5) x10^3/uL Immature Gran # (Auto) (0.00-0.03) x10^3u/L Absolute Lymphs (auto) (1.0-4.6) x10^3/uL Absolute Monos (auto) (0.0-1.3) x10^3/uL Absolute Nucleated RBC (0.00-0.01) x10^3u/L Lymphocytes % (24.0-44.0) % Monocytes % (0.0-12.0) % Eosinophils % (0.00-5.0) % Basophils % (0.0-0.4) % Absolute Granulocytes (1.4-6.9) x10^3/uL Basophils # (0-0.4) x10^3/uL Sodium (137-145) mmol/L Potassium (3.5-5.1) mmol/L Chloride (98-107) mmol/L Carbon Dioxide (22-30) mmol/L Anion Gap (5-15) MEQ/L BUN (7-17) mg/dL Creatinine (0.52-1.04) mg/dL Estimated GFR ML/MIN Glucose (74-106) mg/dL POC Glucometer 419 H (74 to 106) mg/dL Calcium (8.4-10.2) mg/dL Procalcitonin (0.030-0.080) ng/mL TSH 3rd Generation (0.47-4.68) mIU/L
[2021-11-17] MEDS: DUONEB 0.5-3 MG/3 ml Neb IH SCH ×5 (01:00→19:06)
[2021-11-17] MEDS: Robitussin-Dm Syrup PO PRN ×2 (02:51→08:56)
[2021-11-17] MEDS: BENADRYL 25 MG CAPSULE PO PRN ×2 (02:53→22:26)
[2021-11-17] MEDS: MORPHINE SULFATE 2 MG INJ IV PRN ×4 (04:11→21:43)
[2021-11-17 05:20] LABS: Hematocrit 31.5 % (35-47); Hemoglobin 9.4 g/dL (12.0-16.0); Mean Cell Volume 88.5 fL (78-100); Mean Corpuscular Hemoglobin 26.4 pg (26-32); Mean Corpuscular Hgb Concent. 29.8 g/dL (32-36); Mean Platelet Volume 10.1 fL (7.5-11.0); Platelet Count 293 x10^3/uL (150-450); Red Blood Count 3.56 x10^6/uL (4.1-5.4); Red Cell Distribution Width 14.9 % (11.5-14.0); White Blood Count 12.9 x10^3/uL (4.0-10.5)
[2021-11-17] MEDS: solu-MEDROL 80 MG, Sterile H2O 10 ml 2 ML IV SCH ×6 (05:58→17:26)
[2021-11-17 06:01] LABS: ALBUMIN 3.8 g/dL (3.5-5.0); ALKALINE PHOSPHATASE 116 U/L (38-126); ANION GAP 14.7 MEQ/L (5-15); BLOOD UREA NITROGEN 27 mg/dL (7-17); CHLORIDE 104 mmol/L (98-107); Calcium 8.8 mg/dL (8.4-10.2); Carbon Dioxide 25 mmol/L (22-30); Creatinine 1 0.75 mg/dL (0.52-1.04); EST GLOMERULAR FILTRATION RATE > 60.0 ML/MIN; Glucose 352 mg/dL (74-106); Potassium 4.5 mmol/L (3.5-5.1); SGOT/AST 46 U/L (14-36); SGPT/ALT 71 U/L (0-35); SODIUM 139 mmol/L (137-145); Total Protein 6.9 g/dL (6.3-8.2)
[2021-11-17 06:02] LABS: BAND 1 % (0.0-2.0); Lymphocytes 5 % (24-44); Monocyte 1 % (0.0-12.0); Total Cells Counted 100
[2021-11-17 06:03] LABS: Platelet Estimate NORMAL (NORMAL)
[2021-11-17] MEDS: HUMALOG SQ PRN ×4 (08:57→21:45)
[2021-11-17] MEDS: PROTONIX 40 MG IV IV SCH (10:06)
[2021-11-17] MEDS: XARELTO 10 MG TABLET PO SCH (10:07)
[2021-11-17] MEDS: ECOTRIN 81 MG PO SCH (10:07)
[2021-11-17] MEDS: Lopressor 50 MG PO SCH (10:08)
[2021-11-17] MEDS: Ativan 0.5 MG PO SCH ×2 (10:08→21:42)
[2021-11-17] MEDS: SYNTHROID 50 MCG PO SCH (10:08)
[2021-11-17] MEDS: TOPIRAMATE PO SCH ×2 (10:08→21:42)
[2021-11-17] MEDS: Cardizem CD PO SCH (10:08)
[2021-11-17] MEDS: ceLEXa 20 MG PO SCH (10:08)
[2021-11-17] MEDS: Neurontin PO SCH ×2 (10:09→21:43)
[2021-11-17] MEDS: NYSTOP POWDER 15 GM TP SCH ×2 (10:09→22:18)
[2021-11-17] MEDS: Pepcid 20 MG PO SCH ×2 (10:12→21:42)
--- NOTE | 2021-11-17 10:39 | PCM.NOTE ---
Date and Time: 11/17/21 1038 Subjective Assessment: still very short of breath - Review of Systems Constitutional: No Fever, No Chills Eyes: No Symptoms Ears, Nose, & Throat: No Symptoms Respiratory: Cough, Orthopnea, Short Of Breath, Wheezing Cardiac: No Chest Pain, No Edema, No Syncope Abdominal/Gastrointestinal: No Abdominal Pain, No Nausea, No Vomiting, No Diarrhea Genitourinary Symptoms: No Dysuria Musculoskeletal: No Back Pain, No Neck Pain Skin: No Rash Neurological: No Dizziness, No Focal Weakness, No Sensory Changes Psychological: No Symptoms Endocrine: No Symptoms Hematologic/Lymphatic: No Symptoms Immunological/Allergic: No Symptoms Objective Exam General Appearance: no apparent distress, alert Neurologic Exam: alert, 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, cooperative, normal mood/affect, nml cerebellar function, sensation nml, No motor deficits Skin Exam: normal color, warm, dry Eye Exam: PERRL, EOMI, eyes nml inspection Ears, Nose, Throat Exam: normal ENT inspection, pharynx normal, moist mucous membranes Neck Exam: normal inspection, non-tender, supple, full range of motion Respiratory Exam: respiratory distress, diminished breath sounds, crackles/rales, rhonchi, wheezing Cardiovascular Exam: regular rate/rhythm, normal heart sounds Gastrointestinal/Abdomen Exam: soft, No tenderness, No mass Extremity Exam: normal inspection, normal range of motion Back Exam: normal inspection, normal range of motion, No CVA tenderness, No vertebral tenderness Pelvic Exam: deferred Rectal Exam: deferred OBJECTIVE DATA Vital Signs: Vital Signs - 24 hr Temp Pulse Resp BP Pulse Ox 11/17/21 07:45 78 18 96 11/17/21 07:31 96.9 F 74 15 161/80 94 L 11/17/21 04:00 97.1 F 84 16 154/80 97 11/17/21 03:03 72 19 97 11/16/21 23:35 96.9 F 74 16 152/71 98 11/16/21 19:39 96.8 F 84 16 148/80 95 11/16/21 18:56 95 11/16/21 17:39 86 20 96 11/16/21 16:52 97.9 F 68 18 137/72 97 11/16/21 12:47 72 22 96 11/16/21 11:34 97.9 F 71 16 177/81 93 L Pain Assessment - Last Documented Pain Intensity 9 Pain Scale Used 0-10 Pain Scale Intake and Output: Intake & Output 11/14/21 11/15/21 11/16/21 11/17/21 11:59 11:59 11:59 11:59 Intake Total 1140 1200 Output Total 2000 Balance -860 1200 Weight 159.9 kg 158.6 kg 160.9 kg Lab Results: Lab Results-Last 24 Hours 11/16/21 11/16/21 11/16/21 Range/Units 04:20 11:16 16:31 WBC (4.0-10.5) x10^3/uL RBC (4.1-5.4) x10^6/uL Hgb (12.0-16.0) g/dL Hct (35-47) % MCV (78-100) fL MCH (26-32) pg MCHC (32-36) g/dL RDW (11.5-14.0) % Plt Count (150-450) x10^3/uL MPV (7.5-11.0) fL Segmented Neutrophils (36.0-66.0) % Band Neutrophils (0.0-2.0) % Lymphocytes (Manual) (24-44) % Monocytes (Manual) (0.0-12.0) % Platelet Estimate (NORMAL) RBC Morphology Sodium (137-145) mmol/L Potassium (3.5-5.1) mmol/L Chloride (98-107) mmol/L Carbon Dioxide (22-30) mmol/L Anion Gap (5-15) MEQ/L BUN (7-17) mg/dL Creatinine (0.52-1.04) mg/dL Estimated GFR ML/MIN Glucose (74-106) mg/dL POC Glucometer 296 H 77 (74 to 106) mg/dL Calcium (8.4-10.2) mg/dL Total Bilirubin (0.2-1.3) mg/dL AST (14-36) U/L ALT (0-35) U/L Alkaline Phosphatase (38-126) U/L Serum Total Protein (6.3-8.2) g/dL Albumin (3.5-5.0) g/dL Procalcitonin 0.088 H (0.030-0.080) ng/mL TSH 3rd Generation 0.846 (0.47-4.68) mIU/L 05/30/22 05/31/22 05/31/22 Range/Units 21:28 04:20 04:20 WBC 12.9 H (4.0-10.5) x10^3/uL RBC 3.56 L (4.1-5.4) x10^6/uL Hgb 9.4 L (12.0-16.0) g/dL Hct 31.5 L (35-47) % MCV 88.5 (78-100) fL MCH 26.4 (26-32) pg MCHC 29.8 L (32-36) g/dL RDW 14.9 H (11.5-14.0) % Plt Count 293 (150-450) x10^3/uL MPV 10.1 (7.5-11.0) fL Segmented Neutrophils 93 H (36.0-66.0) % Band Neutrophils 1 (0.0-2.0) % Lymphocytes (Manual) 5 L (24-44) % Monocytes (Manual) 1 (0.0-12.0) % Platelet Estimate NORMAL (NORMAL) RBC Morphology NORMAL Sodium 139 (137-145) mmol/L Potassium 4.5 (3.5-5.1) mmol/L Chloride 104 (98-107) mmol/L Carbon Dioxide 25 (22-30) mmol/L Anion Gap 14.7 (5-15) MEQ/L BUN 27 H (7-17) mg/dL Creatinine 0.75 (0.52-1.04) mg/dL Estimated GFR > 60.0 ML/MIN Glucose 352 H (74-106) mg/dL POC Glucometer 419 H (74 to 106) mg/dL Calcium 8.8 (8.4-10.2) mg/dL Total Bilirubin 0.40 (0.2-1.3) mg/dL AST 46 H (14-36) U/L ALT 71 H (0-35) U/L Alkaline Phosphatase 116 (38-126) U/L Serum Total Protein 6.9 (6.3-8.2) g/dL Albumin 3.8 (3.5-5.0) g/dL Procalcitonin (0.030-0.080) ng/mL TSH 3rd Generation (0.47-4.68) mIU/L 11/17/21 Range/Units 07:13 WBC (4.0-10.5) x10^3/uL RBC (4.1-5.4) x10^6/uL Hgb (12.0-16.0) g/dL Hct (35-47) % MCV (78-100) fL MCH (26-32) pg MCHC (32-36) g/dL RDW (11.5-14.0) % Plt Count (150-450) x10^3/uL MPV (7.5-11.0) fL Segmented Neutrophils (36.0-66.0) % Band Neutrophils (0.0-2.0) % Lymphocytes (Manual) (24-44) % Monocytes (Manual) (0.0-12.0) % Platelet Estimate (NORMAL) RBC Morphology Sodium (137-145) mmol/L Potassium (3.5-5.1) mmol/L Chloride (98-107) mmol/L Carbon Dioxide (22-30) mmol/L Anion Gap (5-15) MEQ/L BUN (7-17) mg/dL Creatinine (0.52-1.04) mg/dL Estimated GFR ML/MIN Glucose (74-106) mg/dL POC Glucometer 320 H (74 to 106) mg/dL Calcium (8.4-10.2) mg/dL Total Bilirubin (0.2-1.3) mg/dL AST (14-36) U/L ALT (0-35) U/L Alkaline Phosphatase (38-126) U/L Serum Total Protein (6.3-8.2) g/dL Albumin (3.5-5.0) g/dL Procalcitonin (0.030-0.080) ng/mL TSH 3rd Generation (0.47-4.68) mIU/L Assessment/Plan (1) Pneumonia Current Visit: Yes Status: Acute Qualifiers: Pneumonia type: due to unspecified organism Laterality: bilateral Lung location: lower lobe of lung Qualified Code(s): J18.9 - Pneumonia, unspecified organism Assessment & Plan: Chief Complaint Diagnosis Pneumonia, Afib Allergies Allergy/AdvReac Type Severity Reaction Status Date / Time Sulfa (Sulfonamide Allergy Mild Rash Verified 11/14/21 17:57 Antibiotics) [Sulfa(Sulfonamide Antibiotics)] Vital Signs (Last 24 hours) Temp Pulse Resp BP Pulse Ox 11/17/21 07:45 78 18 96 11/17/21 07:31 96.9 F 74 15 161/80 94 L 11/17/21 04:00 97.1 F 84 16 154/80 97 11/17/21 03:03 72 19 97 11/16/21 23:35 96.9 F 74 16 152/71 98 11/16/21 19:39 96.8 F 84 16 148/80 95 11/16/21 18:56 95 11/16/21 17:39 86 20 96 11/16/21 16:52 97.9 F 68 18 137/72 97 11/16/21 12:47 72 22 96 11/16/21 11:34 97.9 F 71 16 177/81 93 L Home Medications Medication Instructions Recorded Confirmed Last Taken Type Atorvastatin Calcium 40 mg PO HS 11/14/21 11/15/21 11/14/21 History Insulin Detemir [Levemir] 60 unit SQ HS 11/14/21 11/14/21 11/14/21 History Lorazepam 0.5 mg [Ativan 0.5 0.5 mg PO BID 11/14/21 11/14/21 11/14/21 History MG] Metoprolol Tartrate 50 mg 50 mg PO DAILY 11/14/21 11/14/21 11/14/21 History [Lopressor 50 MG] dilTIAZem HCL [Diltiazem 24Hr ER 120 mg PO DAILY 11/14/21 11/14/21 11/14/21 History (Cd)] Albuterol Sulfate [Proair Hfa] 2 puff IH Q4H PRN PRN 11/15/21 11/15/21 11/14/21 History Current Medications Generic Name Dose Route Start Last Admin Trade Name Freq PRN Reason Stop Dose Admin Acetaminophen 1,000 mg 11/15/21 11:34 11/16/21 06:34 Acetaminophen 500 Mg Tablet PO 12/15/21 11:33 1,000 mg Q4H PRN PRN Administration HEADACHE Albuterol Sulfate 2.5 mg 11/15/21 01:29 Albuterol Sulfate 2.5 Mg/3 Ml Neb IH 12/15/21 01:28 Q4H PRN PRN SHORTNESS OF BREATH/WHEEZING Albuterol/Ipratropium 3 ml 11/15/21 01:00 11/17/21 07:39 Ipratropium/Albuterol Sulfate 3 Ml Ampul.Neb IH 12/15/21 00:59 Not Given Q6HRT CAITY Aspirin 81 mg 11/15/21 10:00 11/17/21 10:07 Aspirin 81 Mg Tablet.Ec PO 12/15/21 09:59 81 mg DAILY CAITY Administration Citalopram Hydrobromide 20 mg 11/15/21 10:00 11/17/21 10:08 Citalopram Hydrobromide 20 Mg Tablet PO 12/15/21 09:59 20 mg DAILY CAITY Administration Methylprednisolone Sodium 0 mg 11/15/21 00:25 11/17/21 05:58 Succinate 80 mg/ Sterile Water IV 12/15/21 00:24 1.28 mg 2 ml Q6HT CAITY Administration Diltiazem HCl 120 mg 11/15/21 10:00 11/17/21 10:08 Diltiazem Hcl Cd 120 Mg Cap.Sr.24h PO 12/15/21 09:59 120 mg DAILY CAITY Administration Diphenhydramine HCl 50 mg 11/15/21 14:16 11/17/21 02:53 Diphenhydramine Hcl 25 Mg Capsule PO 12/15/21 14:15 50 mg Q6H PRN PRN Administration ITCHING Famotidine 40 mg 11/15/21 10:00 11/17/21 10:12 Famotidine 20 Mg Tablet PO 12/15/21 09:59 40 mg BID CAITY Administration Gabapentin 400 mg 11/15/21 10:00 11/17/21 10:09 Gabapentin 400 Mg Capsule PO 12/15/21 09:59 400 mg BID CAITY Administration Guaifenesin/Dextromethorphan 10 ml 11/15/21 09:20 11/17/21 08:56 Guaifenesin/D-Methorphan Hb 118 Ml Syrup PO 12/15/21 09:19 10 ml Q4H PRN PRN Administration COUGH Azithromycin 500 mg in 250 mls @ 250 mls/hr 11/15/21 22:00 11/16/21 21:48 Zithromax 500 Mg/ 250 Ml Nacl Premix IV 12/15/21 21:59 250 mls/hr Q24H22 CAITY Administration Ceftriaxone Sodium/Dextrose 1 g in 50 mls @ 100 mls/hr 11/15/21 22:00 11/16/21 21:13 Rocephin 1 Gm-D5w 50 Ml Bag IV 11/18/21 21:59 100 mls/hr Q24H22 CAITY Administration Insulin Glargine 60 unit 11/15/21 17:00 11/16/21 17:07 Insulin Glargine 1 Unit SQ 12/15/21 16:59 60 unit 1700 CAITY Administration Insulin Human Lispro 0 unit 11/15/21 00:25 11/17/21 08:57 Insulin Lispro 1 Unit SQ 12/15/21 00:24 9 unit UD PRN Administration HYPERGLYCEMIA Levothyroxine Sodium 50 mcg 11/15/21 10:00 11/17/21 10:08 Levothyroxine Sodium 50 Mcg Tablet PO 12/15/21 09:59 50 mcg DAILY CAITY Administration Lorazepam 0.5 mg 11/15/21 10:00 11/17/21 10:08 Lorazepam 0.5 Mg Tablet PO 12/15/21 09:59 0.5 mg BID CAITY Administration Metoprolol Tartrate 50 mg 11/15/21 10:00 11/17/21 10:08 Metoprolol Tartrate 50 Mg Tablet PO 12/15/21 09:59 50 mg DAILY CAITY Administration Morphine Sulfate 2 mg 11/15/21 00:25 11/17/21 08:56 Morphine Sulfate 2 Mg/Ml Inj IV 11/20/21 00:24 2 mg Q4H PRN PRN Administration PAIN Nystatin 1 gm 11/15/21 10:00 11/17/21 10:09 Nystatin 15 Gm Powder TP 12/15/21 09:59 1 gm BID CAITY Administration Ondansetron HCl 4 mg 11/15/21 00:25 Ondansetron Hcl 4 Mg/2 Ml Vial IV 12/15/21 00:24 Q6H PRN PRN NAUSEA/VOMITING Pantoprazole Sodium 40 mg 11/15/21 10:00 11/17/21 10:06 Pantoprazole 40 Mg Vial IV 12/15/21 09:59 40 mg Q24H10 CAITY Administration Rivaroxaban 20 mg 11/15/21 10:00 11/17/21 10:07 Rivaroxaban 10 Mg Tablet PO 12/15/21 09:59 20 mg DAILY CAITY Administration Simvastatin 40 mg 11/15/21 22:00 11/16/21 21:13 Simvastatin 20 Mg Tablet PO 12/15/21 21:59 40 mg HS CAITY Administration Topiramate 50 mg 11/15/21 10:00 11/17/21 10:08 Topiramate 50 Mg Tablet PO 12/15/21 09:59 50 mg BID CAITY Administration Discontinued Medications Generic Name Dose Route Start Last Admin Trade Name [place] PRN Reason Stop Dose Admin Acetaminophen 650 mg 11/15/21 00:25 Acetaminophen 325 Mg Tablet PO 12/15/21 00:24 Q4H PRN PRN PAIN AND/OR FEVER Albuterol/Ipratropium 3 ml 11/14/21 18:26 11/14/21 18:44 Ipratropium/Albuterol Sulfate 3 Ml Ampul.Neb 11/14/21 18:27 Not Given STAT ONE Albuterol/Ipratropium 3 ml 11/14/21 21:23 11/14/21 21:49 Ipratropium/Albuterol Sulfate 3 Ml Ampul.Neb 11/14/21 21:24 3 ml STAT ONE Administration Albuterol/Ipratropium Confirm 11/14/21 21:44 Ipratropium/Albuterol Sulfate 3 Ml Ampul.Neb Administered 11/14/21 21:45 Dose 3 ml IH .STK-MED ONE Diltiazem HCl 10 mg 11/14/21 22:42 11/14/21 22:48 Diltiazem Hcl Iv 5 Mg/Ml Vial IV 11/14/21 22:43 10 mg STAT ONE Administration Diltiazem HCl Confirm 11/14/21 22:44 Diltiazem Hcl Iv 5 Mg/Ml Vial Administered 11/14/21 22:45 Dose 50 mg IV .STK-MED ONE Diltiazem HCl 10 mg 11/14/21 23:50 11/14/21 23:58 Diltiazem Hcl Iv 5 Mg/Ml Vial IV 11/14/21 23:51 10 mg STAT ONE Administration Ceftriaxone Sodium/Dextrose 2 g in 50 mls @ 100 mls/hr 11/14/21 21:22 11/14/21 22:27 Rocephin 2 Gm-D5w 50ml Bag IV 11/14/21 21:51 Infused STAT STA Infusion Azithromycin 500 mg in 250 mls @ 250 mls/hr 11/14/21 21:22 11/14/21 23:37 Zithromax 500 Mg/ 250 Ml Nacl Premix IV 11/14/21 22:21 Infused STAT STA Infusion Ceftriaxone Sodium/Dextrose Confirm 11/14/21 21:42 Rocephin 2 Gm-D5w 50ml Bag Administered 11/14/21 21:43 Dose 2 g in 50 mls @ ud IV .STK-MED ONE Azithromycin Confirm 11/14/21 22:26 Zithromax 500 Mg/ 250 Ml Nacl Premix Administered 11/14/21 22:27 Dose 500 mg in 250 mls @ ud IV .STK-MED ONE Diltiazem HCl 100 mls @ 5 mls/hr 11/14/21 22:42 11/15/21 04:35 Cardizem Drip 100 Mg/100 Ml D5w IV 12/14/21 22:41 0 mg/hr .Q20H PRN 0 mls/hr HEART RATE/ A-FIB Titration Protocol 5 MG/HR Ceftriaxone Sodium/Dextrose 2 g in 50 mls @ 100 mls/hr 11/15/21 22:00 Rocephin 2 Gm-D5w 50ml Bag IV 11/18/21 21:59 Q24H22 CAITY Insulin Glargine 60 unit 11/15/21 22:00 Insulin Glargine 1 Unit SQ 12/15/21 21:59 HS CAITY Methylprednisolone Sodium Succinate Confirm 11/15/21 05:56 Methylprednis Sod Succ 125 Mg/2 Ml Vial Administered 11/15/21 05:57 Dose 125 mg .ROUTE .STK-MED ONE Methylprednisolone Sodium Succinate Confirm 11/15/21 16:41 Methylprednis Sod Succ 125 Mg/2 Ml Vial Administered 11/15/21 16:42 Dose 125 mg .ROUTE .STK-MED ONE Morphine Sulfate 4 mg 11/14/21 22:00 11/14/21 22:11 Morphine Sulfate 4 Mg/Ml Injection IV 11/14/21 22:01 4 mg STAT ONE Administration Morphine Sulfate Confirm 11/14/21 22:07 Morphine Sulfate 4 Mg/Ml Injection Administered 11/14/21 22:08 Dose 4 mg .ROUTE .STK-MED ONE Ondansetron HCl 4 mg 11/14/21 22:00 11/14/21 22:10 Ondansetron Hcl 4 Mg/2 Ml Vial IV 11/14/21 22:01 4 mg STAT ONE Administration Ondansetron HCl Confirm 11/14/21 22:07 Ondansetron Hcl 4 Mg/2 Ml Vial Administered 11/14/21 22:08 Dose 4 mg .ROUTE .STK-MED ONE Sterile Water Confirm 11/15/21 05:56 Water For Injection,Sterile 10 Ml Vial Administered 11/15/21 05:57 Dose 10 ml IJ .STK-MED ONE Intake & Output (Last 24 hours) 11/14/21 11/15/21 11/16/21 11/17/21 11:59 11:59 11:59 11:59 Intake Total 1140 1200 Output Total 2000 Balance -860 1200 Weight 159.9 kg 158.6 kg 160.9 kg Microbiology Results (Last 24 hours) 11/14/21 19:37 Urine, Void Urine Culture - Final MIXED NESHA; 3 OR MORE TYPES. NO PREDOMINANT ORGANISM. NO FURTHER WORKUP. PLEASE RESUBMIT IF CLINICALLY INDICATED. 11/14/21 21:40 Blood Blood Culture Gram Stain - Pending 11/14/21 21:40 Blood Blood Culture - Preliminary NO GROWTH TO DATE 11/14/21 18:40 Blood Blood Culture Gram Stain - Pending 11/14/21 18:40 Blood Blood Culture - Preliminary NO GROWTH TO DATE Laboratory Results (Last 24 hours) 11/17/21 11/17/21 11/17/21 07:13 04:20 04:20 WBC 12.9 H RBC 3.56 L Hgb 9.4 L Hct 31.5 L MCV 88.5 MCH 26.4 MCHC 29.8 L RDW 14.9 H Plt Count 293 MPV 10.1 Segmented Neutrophils 93 H Band Neutrophils 1 Lymphocytes (Manual) 5 L Monocytes (Manual) 1 Platelet Estimate NORMAL RBC Morphology NORMAL Sodium 139 Potassium 4.5 Chloride 104 Carbon Dioxide 25 Anion Gap 14.7 BUN 27 H Creatinine 0.75 Estimated GFR > 60.0 Glucose 352 H POC Glucometer 320 H Calcium 8.8 Total Bilirubin 0.40 AST 46 H ALT 71 H Alkaline Phosphatase 116 Serum Total Protein 6.9 Albumin 3.8 Procalcitonin TSH 3rd Generation 11/16/21 11/16/21 11/16/21 21:28 16:31 11:16 WBC RBC Hgb Hct MCV MCH MCHC RDW Plt Count MPV Segmented Neutrophils Band Neutrophils Lymphocytes (Manual) Monocytes (Manual) Platelet Estimate RBC Morphology Sodium Potassium Chloride Carbon Dioxide Anion Gap BUN Creatinine Estimated GFR Glucose POC Glucometer 419 H 77 296 H Calcium Total Bilirubin AST ALT Alkaline Phosphatase Serum Total Protein Albumin Procalcitonin TSH 3rd Generation 11/16/21 04:20 WBC RBC Hgb Hct MCV MCH MCHC RDW Plt Count MPV Segmented Neutrophils Band Neutrophils Lymphocytes (Manual) Monocytes (Manual) Platelet Estimate RBC Morphology Sodium Potassium Chloride Carbon Dioxide Anion Gap BUN Creatinine Estimated GFR Glucose POC Glucometer Calcium Total Bilirubin AST ALT Alkaline Phosphatase Serum Total Protein Albumin Procalcitonin 0.088 H TSH 3rd Generation 0.846 Orders (Last 24 hours) Category Date Time Status CHEST W/WO CONTRAST [CT] Urgent Exams 11/17/21 10:38 Ordered CBC W DIFF AM.LAB Lab 11/17/21 04:20 Completed CMP AM.LAB Lab 11/17/21 04:20 Completed D-DIMER QUANTITATIVE Urgent Lab 11/17/21 10:38 Ordered Manual Differential NC Routine Lab 11/17/21 04:20 Completed POCT GLUCOSE Stat Lab 11/16/21 11:16 Completed POCT GLUCOSE Stat Lab 11/16/21 16:31 Completed POCT GLUCOSE Stat Lab 11/16/21 21:28 Completed POCT GLUCOSE Stat Lab 11/17/21 07:13 Completed Patient Care Notes (Last 24 hours) 11/16/21 12:46 Nursing Note by Patricia Kamara AMBULATING IN HALLS, TOLERATED WELL. Initialized on 11/16/21 12:46 - END OF NOTE Code(s): J18.9 - PNEUMONIA, UNSPECIFIED ORGANISM
--- NOTE | 2021-11-17 12:57 | XRAY ---
Indication: Pneumonia. Short of breath. Multiple contiguous axial images obtained through the chest prior to and following 100 cc Isovue 370 contrast as ordered and using PE protocol. Comparison: August 16, 2016. There is good opacification of the pulmonary arteries to include the lobar and segmental branches. No pulmonary embolus. Heart is now enlarged. No pericardial effusion. Aorta is normal in course and caliber. No pathologic mediastinal/hilar lymphadenopathy. Stable small posterior right paratracheal air cyst. Noncontrasted images are negative for pathologic calcifications. Lungs demonstrates new diffuse bilateral groundglass airspace opacities without consolidation/effusion. Bony thorax intact with minimal degenerative changes throughout the spine. Limited upper abdomen again demonstrates fatty liver and 13.9 cm splenomegaly. Impression: 1. Negative pulmonary embolus. 2. New diffuse bilateral groundglass airspace disease without consolidation/large effusion. 3. New cardiomegaly without CHF. 4. Stable chronic findings including paratracheal air cyst, fatty liver, and splenomegaly. 5. Remaining CT chest with and without contrast exam is negative.
[2021-11-17] MEDS: Lantus Insulin SQ SCH (17:26)
[2021-11-17 18:24] LABS: INFLUENZA A NEGATIVE (NEGATIVE); INFLUENZA B NEGATIVE (NEGATIVE); RESPIRATORY SYNCTIAL VIRUS NEGATIVE (Negative); SARS-CoV-2 Xpert Express NEGATIVE (NEGATIVE)
[2021-11-17] MEDS: ROCEPHIN 1 Gm-D5w 50 ml Bag** 1 G/50 ML IVPB IV SCH (21:42)
[2021-11-17] MEDS: ZOCOR 20MG PO SCH (21:42)
[2021-11-17] MEDS: Zithromax 500 MG/ 250 ML NaCl Premix 500 MG/250 ML IVPB IV SCH (22:25)
[2021-11-18] MEDS: solu-MEDROL 80 MG, Sterile H2O 10 ml 2 ML IV SCH ×8 (01:20→17:07)
[2021-11-18] MEDS: DUONEB 0.5-3 MG/3 ml Neb IH SCH ×4 (01:45→18:08)
[2021-11-18 04:51] LABS: Hematocrit 31.7 % (35-47); Hemoglobin 9.7 g/dL (12.0-16.0); Mean Cell Volume 87.1 fL (78-100); Mean Corpuscular Hemoglobin 26.6 pg (26-32); Mean Corpuscular Hgb Concent. 30.6 g/dL (32-36); Mean Platelet Volume 9.6 fL (7.5-11.0); Platelet Count 288 x10^3/uL (150-450); Red Blood Count 3.64 x10^6/uL (4.1-5.4); Red Cell Distribution Width 14.9 % (11.5-14.0); White Blood Count 10.8 x10^3/uL (4.0-10.5)
[2021-11-18] MEDS: MORPHINE SULFATE 2 MG INJ IV PRN ×3 (04:58→20:09)
[2021-11-18 05:16] LABS: ALBUMIN 3.7 g/dL (3.5-5.0); ALKALINE PHOSPHATASE 99 U/L (38-126); ANION GAP 13.3 MEQ/L (5-15); BLOOD UREA NITROGEN 26 mg/dL (7-17); CHLORIDE 103 mmol/L (98-107); Calcium 8.4 mg/dL (8.4-10.2); Carbon Dioxide 25 mmol/L (22-30); Creatinine 1 0.71 mg/dL (0.52-1.04); EST GLOMERULAR FILTRATION RATE > 60.0 ML/MIN; Glucose 311 mg/dL (74-106); MAGNESIUM 2.4 mg/dL (1.6-2.3); Potassium 4.3 mmol/L (3.5-5.1); SGOT/AST 69 U/L (14-36); SGPT/ALT 95 U/L (0-35); SODIUM 136 mmol/L (137-145); Total Protein 6.7 g/dL (6.3-8.2)
[2021-11-18 05:28] LABS: Lymphocytes 20 % (24-44); Total Cells Counted 100
[2021-11-18] MEDS: HUMALOG SQ PRN ×3 (08:31→17:08)
[2021-11-18] MEDS: NYSTOP POWDER 15 GM TP SCH ×2 (10:00→22:05)
[2021-11-18] MEDS: XARELTO 10 MG TABLET PO SCH (10:03)
[2021-11-18] MEDS: TOPIRAMATE PO SCH ×2 (10:04→22:04)
[2021-11-18] MEDS: ECOTRIN 81 MG PO SCH (10:04)
[2021-11-18] MEDS: ceLEXa 20 MG PO SCH (10:04)
[2021-11-18] MEDS: Lopressor 50 MG PO SCH (10:04)
[2021-11-18] MEDS: Ativan 0.5 MG PO SCH ×2 (10:04→22:04)
[2021-11-18] MEDS: Pepcid 20 MG PO SCH ×2 (10:05→22:04)
[2021-11-18] MEDS: Cardizem CD PO SCH (10:05)
[2021-11-18] MEDS: SYNTHROID 50 MCG PO SCH (10:05)
[2021-11-18] MEDS: Neurontin PO SCH ×2 (10:05→22:03)
[2021-11-18] MEDS: PROTONIX 40 MG IV IV SCH (10:06)
[2021-11-18] MEDS: Lantus Insulin SQ SCH (17:08)
[2021-11-18] MEDS: ROCEPHIN 1 Gm-D5w 50 ml Bag** 1 G/50 ML IVPB IV SCH (22:03)
[2021-11-18] MEDS: Zithromax 500 MG/ 250 ML NaCl Premix 500 MG/250 ML IVPB IV SCH (22:03)
[2021-11-18] MEDS: ZOCOR 20MG PO SCH (22:04)
[2021-11-19] MEDS: solu-MEDROL 80 MG, Sterile H2O 10 ml 2 ML IV SCH ×6 (00:24→11:28)
[2021-11-19] MEDS: MORPHINE SULFATE 2 MG INJ IV PRN ×2 (00:42→05:10)
[2021-11-19] MEDS: DUONEB 0.5-3 MG/3 ml Neb IH SCH ×2 (05:02→07:07)
[2021-11-19] MEDS: Robitussin-Dm Syrup PO PRN (05:11)
[2021-11-19 07:13] VITALS: O2SAT 93
[2021-11-19] MEDS: HUMALOG SQ PRN ×2 (07:45→11:28)
[2021-11-19] MEDS: BENADRYL 25 MG CAPSULE PO PRN (07:56)
[2021-11-19] MEDS: ECOTRIN 81 MG PO SCH (09:33)
[2021-11-19] MEDS: SYNTHROID 50 MCG PO SCH (09:33)
[2021-11-19] MEDS: TOPIRAMATE PO SCH (09:33)
[2021-11-19] MEDS: PROTONIX 40 MG IV IV SCH (09:33)
[2021-11-19] MEDS: XARELTO 10 MG TABLET PO SCH (09:33)
[2021-11-19] MEDS: NYSTOP POWDER 15 GM TP SCH (09:34)
[2021-11-19] MEDS: Ativan 0.5 MG PO SCH (09:34)
[2021-11-19] MEDS: Neurontin PO SCH (09:34)
[2021-11-19] MEDS: Lopressor 50 MG PO SCH (09:34)
[2021-11-19] MEDS: ceLEXa 20 MG PO SCH (09:34)
[2021-11-19] MEDS: Cardizem CD PO SCH (09:34)
[2021-11-19] MEDS: Pepcid 20 MG PO SCH (09:34)
[2021-11-19 09:48] VITALS: BP 157/98; PULSE 72
--- NOTE | 2021-11-19 10:24 | PCM.NOTE ---
Date and Time: 11/18/21 1023 late entry Subjective Assessment: doing better - Review of Systems Constitutional: No Fever, No Chills Eyes: No Symptoms Ears, Nose, & Throat: No Symptoms Respiratory: Cough, Orthopnea, Short Of Breath, Wheezing Cardiac: No Chest Pain, No Edema, No Syncope Abdominal/Gastrointestinal: No Abdominal Pain, No Nausea, No Vomiting, No Diarrhea Genitourinary Symptoms: No Dysuria Musculoskeletal: No Back Pain, No Neck Pain Skin: No Rash Neurological: No Dizziness, No Focal Weakness, No Sensory Changes Psychological: No Symptoms Endocrine: No Symptoms Hematologic/Lymphatic: No Symptoms Immunological/Allergic: No Symptoms Objective Exam General Appearance: no apparent distress, alert Neurologic Exam: alert, 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, cooperative, normal mood/affect, nml cerebellar function, sensation nml, No motor deficits Skin Exam: normal color, warm, dry Eye Exam: PERRL, EOMI, eyes nml inspection Ears, Nose, Throat Exam: normal ENT inspection, pharynx normal, moist mucous membranes Neck Exam: normal inspection, non-tender, supple, full range of motion Respiratory Exam: crackles/rales, rhonchi, wheezing, No respiratory distress Cardiovascular Exam: regular rate/rhythm, normal heart sounds Gastrointestinal/Abdomen Exam: soft, No tenderness, No mass Extremity Exam: normal inspection, normal range of motion Back Exam: normal inspection, normal range of motion, No CVA tenderness, No vertebral tenderness Pelvic Exam: deferred Rectal Exam: deferred OBJECTIVE DATA Vital Signs: Vital Signs - 24 hr Temp Pulse Resp BP Pulse Ox 11/19/21 09:30 72 157/98 11/19/21 07:11 66 18 93 L 11/19/21 07:09 96.9 F 59 L 18 164/86 92 L 11/19/21 04:00 97.8 F 90 20 132/64 97 11/19/21 00:00 96.9 F 69 18 147/84 94 L 11/18/21 19:41 97.1 F 76 22 150/74 96 11/18/21 18:21 64 21 96 11/18/21 15:43 96.9 F 60 19 145/78 97 11/18/21 13:45 80 18 96 11/18/21 11:55 97.8 F 60 21 153/89 96 Pain Assessment - Last Documented Pain Intensity 0 Pain Scale Used 0-10 Pain Scale,FLACC Intake and Output: Intake & Output 11/16/21 11/17/21 11/18/21 11/19/21 11:59 11:59 11:59 11:59 Intake Total 1140 0607 541 2270 Output Total 1999 Balance -860 1995 591 9825 Weight 158.6 kg 160.9 kg 161.1 kg 160.5 kg Lab Results: Lab Results-Last 24 Hours 11/18/21 11/18/21 11/18/21 Range/Units 11:50 15:35 21:18 POC Glucometer 279 H 351 H 339 H (74 to 106) mg/dL 11/19/21 Range/Units 07:03 POC Glucometer 261 H (74 to 106) mg/dL Radiology Exams: Radiology Procedures Category Date Time Status CHEST W/WO CONTRAST [CT] Urgent Exams 11/17/21 10:38 Completed Multi-Disciplinary Progress Notes: Multi-Disciplinary Progress Notes 11/18/21 11:35 Case Management Note by Julee Fagan PATIENT CONTINUES TO DENY ANY NEW NEEDS AT TIME OF DC. 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 Initialized on 11/18/21 11:35 - END OF NOTE Assessment/Plan (1) Pneumonia Current Visit: Yes Status: Acute Qualifiers: Pneumonia type: due to unspecified organism Laterality: bilateral Lung location: lower lobe of lung Qualified Code(s): J18.9 - Pneumonia, unspecified organism Assessment & Plan: Last Vital Signs Temp 96.9 F 11/19/21 07:09 Pulse 72 11/19/21 09:30 Resp 18 11/19/21 07:11 BP 157/98 11/19/21 09:30 Pulse Ox 93 L 11/19/21 07:11 Allergies Sulfa (Sulfonamide Antibiotics) [Sulfa(Sulfonamide Antibiotics)] Allergy (Mild, Verified 11/14/21 17:57) Rash rash Active Medications Acetaminophen (Acetaminophen 500 Mg Tablet) 1,000 mg PO Q4H PRN PRN PRN Reason: HEADACHE Stop: 12/15/21 11:33 Last Admin: 11/16/21 06:34 Dose: 1,000 mg Albuterol Sulfate (Albuterol Sulfate 2.5 Mg/3 Ml Neb) 2.5 mg IH Q4H PRN PRN PRN Reason: SHORTNESS OF BREATH/WHEEZING Stop: 12/15/21 01:28 Albuterol/Ipratropium (Ipratropium/Albuterol Sulfate 3 Ml Ampul.Neb) 3 ml IH Q6HRT [facility] Stop: 12/15/21 00:59 Last Admin: 11/19/21 07:07 Dose: 3 ml Aspirin (Aspirin 81 Mg Tablet.Ec) 81 mg PO DAILY [facility] Stop: 12/15/21 09:59 Last Admin: 11/19/21 09:33 Dose: 81 mg Citalopram Hydrobromide (Citalopram Hydrobromide 20 Mg Tablet) 20 mg PO DAILY [facility] Stop: 12/15/21 09:59 Last Admin: 11/19/21 09:34 Dose: 20 mg Methylprednisolone Sodium Succinate 80 mg/ Sterile Water 2 ml 0 mg IV Q6HT [facility] Stop: 12/15/21 00:24 Last Admin: 11/19/21 05:14 Dose: 80 mg Diltiazem HCl (Diltiazem Hcl Cd 120 Mg Cap.Sr.24h) 120 mg PO DAILY [facility] Stop: 12/15/21 09:59 Last Admin: 11/19/21 09:34 Dose: 120 mg Diphenhydramine HCl (Diphenhydramine Hcl 25 Mg Capsule) 50 mg PO Q6H PRN PRN PRN Reason: ITCHING Stop: 12/15/21 14:15 Last Admin: 11/19/21 07:56 Dose: 50 mg Famotidine (Famotidine 20 Mg Tablet) 40 mg PO BID [facility] Stop: 12/15/21 09:59 Last Admin: 11/19/21 09:34 Dose: 40 mg Gabapentin (Gabapentin 400 Mg Capsule) 400 mg PO BID [facility] Stop: 12/15/21 09:59 Last Admin: 11/19/21 09:34 Dose: 400 mg Guaifenesin/Dextromethorphan (Guaifenesin/D-Methorphan Hb 118 Ml Syrup) 10 ml PO Q4H PRN PRN PRN Reason: COUGH Stop: 12/15/21 09:19 Last Admin: 11/19/21 05:11 Dose: 10 ml Azithromycin (Zithromax 500 Mg/ 250 Ml Nacl Premix) 500 mg in 250 mls @ 250 mls/hr IV Q24H22 [facility] Stop: 12/15/21 21:59 Last Admin: 11/18/21 22:03 Dose: 250 mls/hr Ceftriaxone Sodium/Dextrose (Rocephin 1 Gm-D5w 50 Ml Bag) 1 g in 50 mls @ 100 mls/hr IV Q24H22 [facility] Stop: 11/19/21 21:59 Last Admin: 11/18/21 22:03 Dose: 100 mls/hr Insulin Glargine (Insulin Glargine 1 Unit) 60 unit SQ 1700 [facility] Stop: 12/15/21 16:59 Last Admin: 11/18/21 17:08 Dose: 60 unit Insulin Human Lispro (Insulin Lispro 1 Unit) 0 unit SQ UD PRN PRN Reason: HYPERGLYCEMIA Stop: 12/15/21 00:24 Last Admin: 11/19/21 07:45 Dose: 7 unit Levothyroxine Sodium (Levothyroxine Sodium 50 Mcg Tablet) 50 mcg PO DAILY [facility] Stop: 12/15/21 09:59 Last Admin: 11/19/21 09:33 Dose: 50 mcg Lorazepam (Lorazepam 0.5 Mg Tablet) 0.5 mg PO BID [facility] Stop: 12/15/21 09:59 Last Admin: 11/19/21 09:34 Dose: 0.5 mg Metoprolol Tartrate (Metoprolol Tartrate 50 Mg Tablet) 50 mg PO DAILY [facility] Stop: 12/15/21 09:59 Last Admin: 11/19/21 09:34 Dose: 50 mg Morphine Sulfate (Morphine Sulfate 2 Mg/Ml Inj) 2 mg IV Q4H PRN PRN PRN Reason: PAIN Stop: 11/20/21 00:24 Last Admin: 11/19/21 05:10 Dose: 2 mg Nystatin (Nystatin 15 Gm Powder) 1 gm TP BID [facility] Stop: 12/15/21 09:59 Last Admin: 11/19/21 09:34 Dose: 1 gm Ondansetron HCl (Ondansetron Hcl 4 Mg/2 Ml Vial) 4 mg IV Q6H PRN PRN PRN Reason: NAUSEA/VOMITING Stop: 12/15/21 00:24 Pantoprazole Sodium (Pantoprazole 40 Mg Vial) 40 mg IV Q24H10 [facility] Stop: 12/15/21 09:59 Last Admin: 11/19/21 09:33 Dose: 40 mg Rivaroxaban (Rivaroxaban 10 Mg Tablet) 20 mg PO DAILY [facility] Stop: 12/15/21 09:59 Last Admin: 11/19/21 09:33 Dose: 20 mg Simvastatin (Simvastatin 20 Mg Tablet) 40 mg PO HS [facility] Stop: 12/15/21 21:59 Last Admin: 11/18/21 22:04 Dose: 40 mg Topiramate (Topiramate 50 Mg Tablet) 50 mg PO BID [facility] Stop: 12/15/21 09:59 Last Admin: 11/19/21 09:33 Dose: 50 mg Intake & Output 11/18/21 11/19/21 11:59 11:59 Intake Total 780 1080 Balance 780 1080 Weight 161.1 kg 160.5 kg Lab Tests 11/18/21 11/18/21 11/18/21 11:50 15:35 21:18 POC Glucometer 279 H 351 H 339 H 11/19/21 07:03 POC Glucometer 261 H Microbiology 11/14/21 21:40 Blood Blood Culture Gram Stain - Final Not Reportable 11/14/21 21:40 Blood Blood Culture - Final NO GROWTH 11/14/21 18:40 Blood Blood Culture Gram Stain - Final Not Reportable 11/14/21 18:40 Blood Blood Culture - Final NO GROWTH Code(s): J18.9 - PNEUMONIA, UNSPECIFIED ORGANISM
--- NOTE | 2021-11-19 10:25 | PCM.NOTE ---
Date and Time: 11/19/21 1024 Subjective Assessment: doing better. last 24 hours events noted - Review of Systems Constitutional: No Fever, No Chills Eyes: No Symptoms Ears, Nose, & Throat: No Symptoms Respiratory: Cough, Wheezing, No Short Of Breath Cardiac: No Chest Pain, No Edema, No Syncope Abdominal/Gastrointestinal: No Abdominal Pain, No Nausea, No Vomiting, No Diarrhea Genitourinary Symptoms: No Dysuria Musculoskeletal: No Back Pain, No Neck Pain Skin: No Rash Neurological: No Dizziness, No Focal Weakness, No Sensory Changes Psychological: No Symptoms Endocrine: No Symptoms Hematologic/Lymphatic: No Symptoms Immunological/Allergic: No Symptoms Objective Exam General Appearance: no apparent distress, alert Neurologic Exam: alert, 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, cooperative, normal mood/affect, nml cerebellar function, sensation nml, No motor deficits Skin Exam: normal color, warm, dry Eye Exam: PERRL, EOMI, eyes nml inspection Ears, Nose, Throat Exam: normal ENT inspection, pharynx normal, moist mucous membranes Neck Exam: normal inspection, non-tender, supple, full range of motion Respiratory Exam: diminished breath sounds, wheezing, No respiratory distress Cardiovascular Exam: regular rate/rhythm, normal heart sounds Gastrointestinal/Abdomen Exam: soft, No tenderness, No mass Extremity Exam: normal inspection, normal range of motion Back Exam: normal inspection, normal range of motion, No CVA tenderness, No vertebral tenderness Pelvic Exam: deferred Rectal Exam: deferred OBJECTIVE DATA Vital Signs: Vital Signs - 24 hr Temp Pulse Resp BP Pulse Ox 11/19/21 09:30 72 157/98 11/19/21 07:11 66 18 93 L 11/19/21 07:09 96.9 F 59 L 18 164/86 92 L 11/19/21 04:00 97.8 F 90 20 132/64 97 11/19/21 00:00 96.9 F 69 18 147/84 94 L 11/18/21 19:41 97.1 F 76 22 150/74 96 11/18/21 18:21 64 21 96 11/18/21 15:43 96.9 F 60 19 145/78 97 11/18/21 13:45 80 18 96 11/18/21 11:55 97.8 F 60 21 153/89 96 Pain Assessment - Last Documented Pain Intensity 0 Pain Scale Used 0-10 Pain Scale,FLACC Intake and Output: Intake & Output 05/30/22 05/31/22 06/01/22 06/02/22 11:59 11:59 11:59 11:59 Intake Total 1140 0141 669 9882 Output Total 1999 Balance -860 4467 558 5458 Weight 158.6 kg 160.9 kg 161.1 kg 160.5 kg Lab Results: Lab Results-Last 24 Hours 11/18/21 11/18/21 11/18/21 Range/Units 11:50 15:35 21:18 POC Glucometer 279 H 351 H 339 H (74 to 106) mg/dL 11/19/21 Range/Units 07:03 POC Glucometer 261 H (74 to 106) mg/dL Radiology Exams: Radiology Procedures Category Date Time Status CHEST W/WO CONTRAST [CT] Urgent Exams 11/17/21 10:38 Completed Multi-Disciplinary Progress Notes: Multi-Disciplinary Progress Notes 11/18/21 11:35 Case Management Note by Julee Fagan PATIENT CONTINUES TO DENY ANY NEW NEEDS AT TIME OF DC. 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 Initialized on 11/18/21 11:35 - END OF NOTE Assessment/Plan (1) Pneumonia Current Visit: Yes Status: Acute Qualifiers: Pneumonia type: due to unspecified organism Laterality: bilateral Lung location: lower lobe of lung Qualified Code(s): J18.9 - Pneumonia, unspecified organism Assessment & Plan: Chief Complaint Diagnosis AFIB W/RVR, PNEUMONIA Allergies Allergy/AdvReac Type Severity Reaction Status Date / Time Sulfa (Sulfonamide Allergy Mild Rash Verified 11/14/21 17:57 Antibiotics) [Sulfa(Sulfonamide Antibiotics)] Vital Signs (Last 24 hours) Temp Pulse Resp BP Pulse Ox 11/19/21 09:30 72 157/98 11/19/21 07:11 66 18 93 L 11/19/21 07:09 96.9 F 59 L 18 164/86 92 L 11/19/21 04:00 97.8 F 90 20 132/64 97 11/19/21 00:00 96.9 F 69 18 147/84 94 L 11/18/21 19:41 97.1 F 76 22 150/74 96 11/18/21 18:21 64 21 96 11/18/21 15:43 96.9 F 60 19 145/78 97 11/18/21 13:45 80 18 96 06/01/22 11:55 97.8 F 60 21 153/89 96 Home Medications Medication Instructions Recorded Confirmed Last Taken Type Atorvastatin Calcium 40 mg PO HS 11/14/21 11/15/21 11/14/21 History Insulin Detemir [Levemir] 60 unit SQ 11/14/21 11/14/21 11/14/21 History Lorazepam 0.5 mg [Ativan 0.5 0.5 mg PO BID 11/14/21 11/14/21 11/14/21 History MG] Metoprolol Tartrate 50 mg 50 mg PO DAILY 11/14/21 11/14/21 11/14/21 History [Lopressor 50 MG] dilTIAZem HCL [Diltiazem 24Hr ER 120 mg PO DAILY 11/14/21 11/14/21 11/14/21 History (Cd)] Albuterol Sulfate [Proair Hfa] 2 puff Q4H PRN PRN 11/15/21 11/15/21 11/14/21 History Current Medications Generic Name Dose Route Start Last Admin Trade Name Freq PRN Reason Stop Dose Admin Acetaminophen 1,000 mg 11/15/21 11:34 11/16/21 06:34 Acetaminophen 500 Mg Tablet PO 12/15/21 11:33 1,000 mg Q4H PRN PRN Administration HEADACHE Albuterol Sulfate 2.5 mg 11/15/21 01:29 Albuterol Sulfate 2.5 Mg/3 Ml formerly [facility] 12/15/21 01:28 Q4H PRN PRN SHORTNESS OF BREATH/WHEEZING Albuterol/Ipratropium 3 ml 11/15/21 01:00 11/19/21 07:07 Ipratropium/Albuterol Sulfate 3 Ml Ampul.formerly [facility] 12/15/21 00:59 3 ml Q6HRT [facility] Administration Aspirin 81 mg 11/15/21 10:00 11/19/21 09:33 Aspirin 81 Mg Tablet.Ec PO 12/15/21 09:59 81 mg DAILY [facility] Administration Citalopram Hydrobromide 20 mg 11/15/21 10:00 11/19/21 09:34 Citalopram Hydrobromide 20 Mg Tablet PO 12/15/21 09:59 20 mg DAILY [facility] Administration Methylprednisolone Sodium 0 mg 11/15/21 00:25 11/19/21 05:14 Succinate 80 mg/ Sterile Water IV 12/15/21 00:24 80 mg 2 ml Q6HT [facility] Administration Diltiazem HCl 120 mg 11/15/21 10:00 11/19/21 09:34 Diltiazem Hcl Cd 120 Mg Cap.Sr.24h PO 12/15/21 09:59 120 mg DAILY [facility] Administration Diphenhydramine HCl 50 mg 11/15/21 14:16 11/19/21 07:56 Diphenhydramine Hcl 25 Mg Capsule PO 12/15/21 14:15 50 mg Q6H PRN PRN Administration ITCHING Famotidine 40 mg 11/15/21 10:00 11/19/21 09:34 Famotidine 20 Mg Tablet PO 12/15/21 09:59 40 mg BID [facility] Administration Gabapentin 400 mg 11/15/21 10:00 11/19/21 09:34 Gabapentin 400 Mg Capsule PO 12/15/21 09:59 400 mg BID [facility] Administration Guaifenesin/Dextromethorphan 10 ml 11/15/21 09:20 11/19/21 05:11 Guaifenesin/D-Methorphan Hb 118 Ml Syrup PO 12/15/21 09:19 10 ml Q4H PRN PRN Administration COUGH Azithromycin 500 mg in 250 mls @ 250 mls/hr 11/15/21 22:00 11/18/21 22:03 Zithromax 500 Mg/ 250 Ml Nacl Premix IV 12/15/21 21:59 250 mls/hr Q24H22 [facility] Administration Ceftriaxone Sodium/Dextrose 1 g in 50 mls @ 100 mls/hr 11/15/21 22:00 11/18/21 22:03 Rocephin 1 Gm-D5w 50 Ml Bag IV 11/19/21 21:59 100 mls/hr Q24H22 [facility] Administration Insulin Glargine 60 unit 11/15/21 17:00 11/18/21 17:08 Insulin Glargine 1 Unit SQ 12/15/21 16:59 60 unit 1700 [facility] Administration Insulin Human Lispro 0 unit 11/15/21 00:25 11/19/21 07:45 Insulin Lispro 1 Unit SQ 12/15/21 00:24 7 unit UD PRN Administration HYPERGLYCEMIA Levothyroxine Sodium 50 mcg 11/15/21 10:00 11/19/21 09:33 Levothyroxine Sodium 50 Mcg Tablet PO 12/15/21 09:59 50 mcg DAILY [facility] Administration Lorazepam 0.5 mg 11/15/21 10:00 11/19/21 09:34 Lorazepam 0.5 Mg Tablet PO 12/15/21 09:59 0.5 mg BID [facility] Administration Metoprolol Tartrate 50 mg 11/15/21 10:00 11/19/21 09:34 Metoprolol Tartrate 50 Mg Tablet PO 12/15/21 09:59 50 mg DAILY [facility] Administration Morphine Sulfate 2 mg 11/15/21 00:25 11/19/21 05:10 Morphine Sulfate 2 Mg/Ml Inj IV 11/20/21 00:24 2 mg Q4H PRN PRN Administration PAIN Nystatin 1 gm 11/15/21 10:00 11/19/21 09:34 Nystatin 15 Gm Powder TP 12/15/21 09:59 1 gm BID [facility] Administration Ondansetron HCl 4 mg 11/15/21 00:25 Ondansetron Hcl 4 Mg/2 Ml Vial IV 12/15/21 00:24 Q6H PRN PRN NAUSEA/VOMITING Pantoprazole Sodium 40 mg 11/15/21 10:00 11/19/21 09:33 Pantoprazole 40 Mg Vial IV 12/15/21 09:59 40 mg Q24H10 [facility] Administration Rivaroxaban 20 mg 11/15/21 10:00 11/19/21 09:33 Rivaroxaban 10 Mg Tablet PO 12/15/21 09:59 20 mg DAILY [facility] Administration Simvastatin 40 mg 11/15/21 22:00 11/18/21 22:04 Simvastatin 20 Mg Tablet PO 12/15/21 21:59 40 mg HS [facility] Administration Topiramate 50 mg 11/15/21 10:00 11/19/21 09:33 Topiramate 50 Mg Tablet PO 12/15/21 09:59 50 mg BID [facility] Administration Discontinued Medications Generic Name Dose Route Start Last Admin Trade Name Freq PRN Reason Stop Dose Admin Acetaminophen 650 mg 11/15/21 00:25 Acetaminophen 325 Mg Tablet PO 12/15/21 00:24 Q4H PRN PRN PAIN AND/OR FEVER Albuterol/Ipratropium 3 ml 11/14/21 18:26 11/14/21 18:44 Ipratropium/Albuterol Sulfate 3 Ml Ampul.Neb IH 11/14/21 18:27 Not Given STAT ONE Albuterol/Ipratropium 3 ml 11/14/21 21:23 11/14/21 21:49 Ipratropium/Albuterol Sulfate 3 Ml Ampul.Neb IH 11/14/21 21:24 3 ml STAT ONE Administration Albuterol/Ipratropium Confirm 11/14/21 21:44 Ipratropium/Albuterol Sulfate 3 Ml Ampul.Neb Administered 11/14/21 21:45 Dose 3 ml IH .STK-MED ONE Diltiazem HCl 10 mg 11/14/21 22:42 11/14/21 22:48 Diltiazem Hcl Iv 5 Mg/Ml Vial IV 11/14/21 22:43 10 mg STAT ONE Administration Diltiazem HCl Confirm 11/14/21 22:44 Diltiazem Hcl Iv 5 Mg/Ml Vial Administered 11/14/21 22:45 Dose 50 mg IV .STK-MED ONE Diltiazem HCl 10 mg 11/14/21 23:50 11/14/21 23:58 Diltiazem Hcl Iv 5 Mg/Ml Vial IV 11/14/21 23:51 10 mg STAT ONE Administration Ceftriaxone Sodium/Dextrose 2 g in 50 mls @ 100 mls/hr 11/14/21 21:22 11/14/21 22:27 Rocephin 2 Gm-D5w 50ml Bag IV 11/14/21 21:51 Infused STAT STA Infusion Azithromycin 500 mg in 250 mls @ 250 mls/hr 11/14/21 21:22 11/14/21 23:37 Zithromax 500 Mg/ 250 Ml Nacl Premix IV 11/14/21 22:21 Infused STAT STA Infusion Ceftriaxone Sodium/Dextrose Confirm 11/14/21 21:42 Rocephin 2 Gm-D5w 50ml Bag Administered 11/14/21 21:43 Dose 2 g in 50 mls @ ud IV .STK-MED ONE Azithromycin Confirm 11/14/21 22:26 Zithromax 500 Mg/ 250 Ml Nacl Premix Administered 11/14/21 22:27 Dose 500 mg in 250 mls @ ud IV .STK-MED ONE Diltiazem HCl 100 mls @ 5 mls/hr 11/14/21 22:42 11/15/21 04:35 Cardizem Drip 100 Mg/100 Ml D5w IV 12/14/21 22:41 0 mg/hr .Q20H PRN 0 mls/hr HEART RATE/ A-FIB Titration Protocol 5 MG/HR Ceftriaxone Sodium/Dextrose 2 g in 50 mls @ 100 mls/hr 11/15/21 22:00 Rocephin 2 Gm-D5w 50ml Bag IV 11/18/21 21:59 Q24H22 [facility] Insulin Glargine 60 unit 11/15/21 22:00 Insulin Glargine 1 Unit SQ 12/15/21 21:59 HS [facility] Methylprednisolone Sodium Succinate Confirm 11/15/21 05:56 Methylprednis Sod Succ 125 Mg/2 Ml Vial Administered 11/15/21 05:57 Dose 125 mg .ROUTE .STK-MED ONE Methylprednisolone Sodium Succinate Confirm 11/15/21 16:41 Methylprednis Sod Succ 125 Mg/2 Ml Vial Administered 11/15/21 16:42 Dose 125 mg .ROUTE .STK-MED ONE Morphine Sulfate 4 mg 11/14/21 22:00 11/14/21 22:11 Morphine Sulfate 4 Mg/Ml Injection IV 11/14/21 22:01 4 mg STAT ONE Administration Morphine Sulfate Confirm 11/14/21 22:07 Morphine Sulfate 4 Mg/Ml Injection Administered 11/14/21 22:08 Dose 4 mg .ROUTE .STK-MED ONE Ondansetron HCl 4 mg 11/14/21 22:00 11/14/21 22:10 Ondansetron Hcl 4 Mg/2 Ml Vial IV 11/14/21 22:01 4 mg STAT ONE Administration Ondansetron HCl Confirm 11/14/21 22:07 Ondansetron Hcl 4 Mg/2 Ml Vial Administered 11/14/21 22:08 Dose 4 mg .ROUTE .STK-MED ONE Sterile Water Confirm 11/15/21 05:56 Water For Injection,Sterile 10 Ml Vial Administered 11/15/21 05:57 Dose 10 ml IJ .STK-MED ONE Intake & Output (Last 24 hours) 11/16/21 11/17/21 11/18/21 11/19/21 11:59 11:59 11:59 11:59 Intake Total 1140 1584 317 1761 Output Total 1999 Balance -860 7012 902 9152 Weight 158.6 kg 160.9 kg 161.1 kg 160.5 kg Microbiology Results (Last 24 hours) 11/14/21 21:40 Blood Blood Culture Gram Stain - Final Not Reportable 11/14/21 21:40 Blood Blood Culture - Final NO GROWTH 11/14/21 18:40 Blood Blood Culture Gram Stain - Final Not Reportable 11/14/21 18:40 Blood Blood Culture - Final NO GROWTH Laboratory Results (Last 24 hours) 11/19/21 11/18/21 11/18/21 07:03 21:18 15:35 POC Glucometer 261 H 339 H 351 H 11/18/21 11:50 POC Glucometer 279 H Orders (Last 24 hours) Category Date Time Status POCT GLUCOSE Stat Lab 11/18/21 11:50 Completed POCT GLUCOSE Stat Lab 11/18/21 15:35 Completed POCT GLUCOSE Stat Lab 11/18/21 21:18 Completed POCT GLUCOSE Stat Lab 11/19/21 07:03 Completed Patient Care Notes (Last 24 hours) 11/18/21 11:35 Case Management Note by Julee Fagan PATIENT CONTINUES TO DENY ANY NEW NEEDS AT TIME OF DC. 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 Initialized on 11/18/21 11:35 - END OF NOTE Code(s): J18.9 - PNEUMONIA, UNSPECIFIED ORGANISM
--- NOTE | 2021-11-20 12:44 | PCM.DS ---
Discharge Summary Date of Admission: 11/15/21 07:40 Admitting Physician: TIM MAGUIRE Primary Care Provider: TIM MAGUIRE Allergies Allergies Sulfa (Sulfonamide Antibiotics) [Sulfa(Sulfonamide Antibiotics)] Allergy (Mild, Verified 11/14/21 17:57) Rash rash Hospital Summary - Hospital Course Hospital Course: Chief Complaint Diagnosis AFIB W/RVR, PNEUMONIA Allergies Allergy/AdvReac Type Severity Reaction Status Date / Time Sulfa (Sulfonamide Allergy Mild Rash Verified 11/14/21 17:57 Antibiotics) [Sulfa(Sulfonamide Antibiotics)] Home Medications Medication Instructions Recorded Confirmed Last Taken Type Atorvastatin Calcium 40 mg PO HS 11/14/21 11/15/21 11/14/21 History Insulin Detemir [Levemir] 60 unit SQ HS 11/14/21 11/14/21 11/14/21 History Lorazepam 0.5 mg [Ativan 0.5 0.5 mg PO BID 11/14/21 11/14/21 11/14/21 History MG] Metoprolol Tartrate 50 mg 50 mg PO DAILY 11/14/21 11/14/21 11/14/21 History [Lopressor 50 MG] dilTIAZem HCL [Diltiazem 24Hr ER 120 mg PO DAILY 11/14/21 11/14/21 11/14/21 History (Cd)] Albuterol Sulfate [Proair Hfa] 2 puff IH Q4H PRN PRN 11/15/21 11/15/21 11/14/21 History Citalopram Hydrobromide 20 mg* 20 mg PO DAILY #0 11/19/21 11/14/21 11/14/21 Rx [ceLEXa 20 MG] Levofloxacin [Levofloxacin 250 mg PO DAILY #5 tab 11/19/21 Unknown Rx 250MG Tablet] Methylprednisolone Packet 4 mg PO UD #30 packet 11/19/21 Unknown Rx [Medrol Dosepack] Current Medications Discontinued Medications Generic Name Dose Route Start Last Admin Trade Name Freq PRN Reason Stop Dose Admin Acetaminophen 650 mg 11/15/21 00:25 Acetaminophen 325 Mg Tablet PO 12/15/21 00:24 Q4H PRN PRN PAIN AND/OR FEVER Acetaminophen 1,000 mg 11/15/21 11:34 11/16/21 06:34 Acetaminophen 500 Mg Tablet PO 12/15/21 11:33 1,000 mg Q4H PRN PRN Administration HEADACHE Albuterol Sulfate 2.5 mg 11/15/21 01:29 Albuterol Sulfate 2.5 Mg/3 Ml [facility] 12/15/21 01:28 Q4H PRN PRN SHORTNESS OF BREATH/WHEEZING Albuterol/Ipratropium 3 ml 11/14/21 18:26 11/14/21 18:44 Ipratropium/Albuterol Sulfate 3 Ml Ampul.[facility] 11/14/21 18:27 Not Given STAT ONE Albuterol/Ipratropium 3 ml 11/14/21 21:23 11/14/21 21:49 Ipratropium/Albuterol Sulfate 3 Ml Ampul.[facility] 11/14/21 21:24 3 ml STAT ONE Administration Albuterol/Ipratropium Confirm 11/14/21 21:44 Ipratropium/Albuterol Sulfate 3 Ml Ampul.Neb Administered 11/14/21 21:45 Dose 3 ml IH .STK-MED ONE Albuterol/Ipratropium 3 ml 11/15/21 01:00 11/19/21 07:07 Ipratropium/Albuterol Sulfate 3 Ml Ampul.[facility] 12/15/21 00:59 3 ml Q6HRT CAITY Administration Aspirin 81 mg 11/15/21 10:00 11/19/21 09:33 Aspirin 81 Mg Tablet.Ec PO 12/15/21 09:59 81 mg DAILY CAITY Administration Citalopram Hydrobromide 20 mg 11/15/21 10:00 11/19/21 09:34 Citalopram Hydrobromide 20 Mg Tablet PO 12/15/21 09:59 20 mg DAILY CAITY Administration Methylprednisolone Sodium 0 mg 11/15/21 00:25 11/19/21 11:28 Succinate 80 mg/ Sterile Water IV 12/15/21 00:24 80 mg 2 ml Q6HT CAITY Administration Diltiazem HCl 10 mg 11/14/21 22:42 11/14/21 22:48 Diltiazem Hcl Iv 5 Mg/Ml Vial IV 11/14/21 22:43 10 mg STAT ONE Administration Diltiazem HCl Confirm 11/14/21 22:44 Diltiazem Hcl Iv 5 Mg/Ml Vial Administered 11/14/21 22:45 Dose 50 mg IV .STK-MED ONE Diltiazem HCl 10 mg 11/14/21 23:50 11/14/21 23:58 Diltiazem Hcl Iv 5 Mg/Ml Vial IV 11/14/21 23:51 10 mg STAT ONE Administration Diltiazem HCl 120 mg 11/15/21 10:00 11/19/21 09:34 Diltiazem Hcl Cd 120 Mg Cap.Sr.24h PO 12/15/21 09:59 120 mg DAILY CAITY Administration Diphenhydramine HCl 50 mg 11/15/21 14:16 11/19/21 07:56 Diphenhydramine Hcl 25 Mg Capsule PO 12/15/21 14:15 50 mg Q6H PRN PRN Administration ITCHING Famotidine 40 mg 11/15/21 10:00 11/19/21 09:34 Famotidine 20 Mg Tablet PO 12/15/21 09:59 40 mg BID CAITY Administration Gabapentin 400 mg 11/15/21 10:00 11/19/21 09:34 Gabapentin 400 Mg Capsule PO 12/15/21 09:59 400 mg BID CAITY Administration Guaifenesin/Dextromethorphan 10 ml 11/15/21 09:20 11/19/21 05:11 Guaifenesin/D-Methorphan Hb 118 Ml Syrup PO 12/15/21 09:19 10 ml Q4H PRN PRN Administration COUGH Ceftriaxone Sodium/Dextrose 2 g in 50 mls @ 100 mls/hr 11/14/21 21:22 11/14/21 22:27 Rocephin 2 Gm-D5w 50ml Bag IV 11/14/21 21:51 Infused STAT STA Infusion Azithromycin 500 mg in 250 mls @ 250 mls/hr 11/14/21 21:22 11/14/21 23:37 Zithromax 500 Mg/ 250 Ml Nacl Premix IV 11/14/21 22:21 Infused STAT STA Infusion Ceftriaxone Sodium/Dextrose Confirm 11/14/21 21:42 Rocephin 2 Gm-D5w 50ml Bag Administered 11/14/21 21:43 Dose 2 g in 50 mls @ ud IV .STK-MED ONE Azithromycin Confirm 11/14/21 22:26 Zithromax 500 Mg/ 250 Ml Nacl Premix Administered 11/14/21 22:27 Dose 500 mg in 250 mls @ ud IV .STK-MED ONE Diltiazem HCl 100 mls @ 5 mls/hr 11/14/21 22:42 11/15/21 04:35 Cardizem Drip 100 Mg/100 Ml D5w IV 12/14/21 22:41 0 mg/hr .Q20H PRN 0 mls/hr HEART RATE/ A-FIB Titration Protocol 5 MG/HR Azithromycin 500 mg in 250 mls @ 250 mls/hr 11/15/21 22:00 11/18/21 22:03 Zithromax 500 Mg/ 250 Ml Nacl Premix IV 12/15/21 21:59 250 mls/hr Q24H22 CAITY Administration Ceftriaxone Sodium/Dextrose 2 g in 50 mls @ 100 mls/hr 11/15/21 22:00 Rocephin 2 Gm-D5w 50ml Bag IV 11/18/21 21:59 Q24H22 CAITY Ceftriaxone Sodium/Dextrose 1 g in 50 mls @ 100 mls/hr 11/15/21 22:00 11/18/21 22:03 Rocephin 1 Gm-D5w 50 Ml Bag IV 11/20/21 21:59 100 mls/hr Q24H22 CAITY Administration Insulin Glargine 60 unit 11/15/21 22:00 Insulin Glargine 1 Unit SQ 12/15/21 21:59 HS CAITY Insulin Glargine 60 unit 11/15/21 17:00 11/18/21 17:08 Insulin Glargine 1 Unit SQ 12/15/21 16:59 60 unit 1700 CAITY Administration Insulin Human Lispro 0 unit 11/15/21 00:25 11/19/21 11:28 Insulin Lispro 1 Unit SQ 12/15/21 00:24 9 unit UD PRN Administration HYPERGLYCEMIA Levothyroxine Sodium 50 mcg 11/15/21 10:00 11/19/21 09:33 Levothyroxine Sodium 50 Mcg Tablet PO 12/15/21 09:59 50 mcg DAILY CAITY Administration Lorazepam 0.5 mg 11/15/21 10:00 11/19/21 09:34 Lorazepam 0.5 Mg Tablet PO 12/15/21 09:59 0.5 mg BID CAITY Administration Methylprednisolone Sodium Succinate Confirm 11/15/21 05:56 Methylprednis Sod Succ 125 Mg/2 Ml Vial Administered 11/15/21 05:57 Dose 125 mg .ROUTE .STK-MED ONE Methylprednisolone Sodium Succinate Confirm 11/15/21 16:41 Methylprednis Sod Succ 125 Mg/2 Ml Vial Administered 11/15/21 16:42 Dose 125 mg .ROUTE .STK-MED ONE Metoprolol Tartrate 50 mg 11/15/21 10:00 11/19/21 09:34 Metoprolol Tartrate 50 Mg Tablet PO 12/15/21 09:59 50 mg DAILY CAITY Administration Morphine Sulfate 4 mg 11/14/21 22:00 11/14/21 22:11 Morphine Sulfate 4 Mg/Ml Injection IV 11/14/21 22:01 4 mg STAT ONE Administration Morphine Sulfate Confirm 11/14/21 22:07 Morphine Sulfate 4 Mg/Ml Injection Administered 11/14/21 22:08 Dose 4 mg .ROUTE .STK-MED ONE Morphine Sulfate 2 mg 11/15/21 00:25 11/19/21 05:10 Morphine Sulfate 2 Mg/Ml Inj IV 11/20/21 00:24 2 mg Q4H PRN PRN Administration PAIN Nystatin 1 gm 11/15/21 10:00 11/19/21 09:34 Nystatin 15 Gm Powder TP 12/15/21 09:59 1 gm BID CAITY Administration Ondansetron HCl 4 mg 11/14/21 22:00 11/14/21 22:10 Ondansetron Hcl 4 Mg/2 Ml Vial IV 11/14/21 22:01 4 mg STAT ONE Administration Ondansetron HCl Confirm 11/14/21 22:07 Ondansetron Hcl 4 Mg/2 Ml Vial Administered 11/14/21 22:08 Dose 4 mg .ROUTE .STK-MED ONE Ondansetron HCl 4 mg 11/15/21 00:25 Ondansetron Hcl 4 Mg/2 Ml Vial IV 12/15/21 00:24 Q6H PRN PRN NAUSEA/VOMITING Pantoprazole Sodium 40 mg 11/15/21 10:00 11/19/21 09:33 Pantoprazole 40 Mg Vial IV 12/15/21 09:59 40 mg Q24H10 CAITY Administration Rivaroxaban 20 mg 11/15/21 10:00 11/19/21 09:33 Rivaroxaban 10 Mg Tablet PO 12/15/21 09:59 20 mg DAILY CAITY Administration Simvastatin 40 mg 11/15/21 22:00 11/18/21 22:04 Simvastatin 20 Mg Tablet PO 12/15/21 21:59 40 mg HS CAITY Administration Sterile Water Confirm 11/15/21 05:56 Water For Injection,Sterile 10 Ml Vial Administered 11/15/21 05:57 Dose 10 ml IJ .STK-MED ONE Topiramate 50 mg 11/15/21 10:00 11/19/21 09:33 Topiramate 50 Mg Tablet PO 12/15/21 09:59 50 mg BID CAITY Administration Intake & Output (Last 24 hours) 11/18/21 11/19/21 11/20/21 11/21/21 11:59 11:59 11:59 11:59 Intake Total 780 1080 Balance 780 1080 Weight 161.1 kg 160.5 kg Microbiology Results (Last 24 hours) 11/14/21 21:40 Blood Blood Culture Gram Stain - Final Not Reportable 11/14/21 21:40 Blood Blood Culture - Final NO GROWTH 11/14/21 18:40 Blood Blood Culture Gram Stain - Final Not Reportable 11/14/21 18:40 Blood Blood Culture - Final NO GROWTH - Vitals & Intake/Output Vital Signs: Vital Signs Temperature 96.9 F 11/19/21 07:09 Pulse Rate 72 11/19/21 09:30 Respiratory Rate 18 11/19/21 07:11 Blood Pressure 157/98 11/19/21 09:30 O2 Sat by Pulse Oximetry 93 L 11/19/21 07:11 Intake & Output: Intake & Output 11/18/21 11/19/21 11/20/21 11/21/21 11:59 11:59 11:59 11:59 Intake Total 780 1080 Balance 780 1080 Weight 161.1 kg 160.5 kg - Lab Result Diagrams: 11/18/21 04:20 11/18/21 04:20 Micro Results-Entire Visit: Microbiology 11/14/21 21:40 Blood Culture Gram Stain - Final Blood Not Reportable Blood Culture - Final NO GROWTH 11/14/21 18:40 Blood Culture Gram Stain - Final Blood Not Reportable Blood Culture - Final NO GROWTH 11/14/21 19:37 Urine Culture - Final Urine, Void MIXED NESHA; 3 OR MORE TYPES. NO PREDOMINANT ORGANISM. NO FURTHER WORKUP. PLEASE RESUBMIT IF CLINICALLY INDICATED. - Procedures and Test Procedures and Tests throughout Hospitalization: Therapy Orders & Screens 11/14/21 21:54 Respiratory Therapy Assessment DAILY Comment: 11/15/21 00:25 Oxygen Nasal Cannula 2 lpm Comment: 11/15/21 01:28 BiPap/CPAP ROUTINE Comment: Diagnosis: Pneumonia, Afib 11/15/21 07:34 Respiratory Therapy Assessment DAILY Comment: Diagnosis: Pneumonia, Afib Discharge Exam General Appearance: no apparent distress, alert Neurologic Exam: alert, 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, cooperative, normal mood/affect, nml cerebellar function, sensation nml, No motor deficits Eye Exam: PERRL, EOMI, eyes nml inspection Ears, Nose, Throat Exam: normal ENT inspection, pharynx normal, moist mucous membranes Neck Exam: normal inspection, non-tender, supple, full range of motion Respiratory Exam: normal breath sounds, lungs clear, No respiratory distress Cardiovascular Exam: regular rate/rhythm, normal heart sounds Gastrointestinal/Abdomen Exam: soft, No tenderness, No mass Pelvic Exam: deferred Rectal Exam: deferred Back Exam: normal inspection, normal range of motion, No CVA tenderness, No vertebral tenderness Extremity Exam: normal inspection, normal range of motion Skin Exam: normal color, warm, dry Final Diagnosis/Problem List - Final Discharge Diagnosis/Problem (1) Pneumonia Status: Acute Priority: High Assessment & Plan: improved Code(s): J18.9 - PNEUMONIA, UNSPECIFIED ORGANISM (2) Atrial fibrillation with RVR Status: Chronic Priority: High Code(s): I48.91 - UNSPECIFIED ATRIAL FIBRILLATION - Discharge Discharge Date: 11/19/21 Disposition: Home, Self-Care Condition: Stable Prescriptions: New Levofloxacin [Levofloxacin 250MG Tablet] 250 mg PO DAILY #5 tab Methylprednisolone Packet [Medrol Dosepack] 4 mg PO UD #30 packet Continue Metformin HCl 500 mg [Glucophage 500 MG] 1,000 mg PO BID Famotidine 40 mg PO BID Diphenhydramine HCl 25 mg [Benadryl 25 mg Capsule] 25 mg PO HS Levothyroxine Sodium 75 Mcg [Synthroid 75 Mcg] 50 mcg PO DAILY Rivaroxaban 10 mg Tablet [Xarelto 10 mg Tablet] 20 mg PO DAILY Topiramate 25 mg [Topamax 25 MG] 50 mg PO BID Gabapentin [Neurontin ] 400 mg PO BID Albuterol/Ipratropium 3ml Neb* [DUONEB 0.5-3 MG/3 ml Neb] 3 ml NEBULIZE Q4H PRN PRN #1 box PRN Reason: Wheezing/Chest Congestion Aspirin 81 mg PO DAILY dilTIAZem HCL [Diltiazem 24Hr ER (Cd)] 120 mg PO DAILY Insulin Detemir [Levemir] 60 unit SQ HS Lorazepam 0.5 mg [Ativan 0.5 MG] 0.5 mg PO BID Metoprolol Tartrate 50 mg [Lopressor 50 MG] 50 mg PO DAILY Atorvastatin Calcium 40 mg PO HS Albuterol Sulfate [Proair Hfa] 2 puff IH Q4H PRN PRN PRN Reason: Wheezing/Chest Congestion Citalopram Hydrobromide 20 mg* [ceLEXa 20 MG] 20 mg PO DAILY #0 Discontinued Naproxen 375 mg [Naprosyn 375 mg] 375 mg PO BID Instructions: Pneumonia in Adults, Atrial Fibrillation (DC) Follow up with: TIM MAGUIRE MD [Primary Care Provider] - 11/26/21 11:15 am (at [place] ) Forms: Discharge Instructions
== END 2021-11-19 13:05 | disposition home or self-care (01) | DRG 194 ==
LOC: ED 17:46 → ICU 11-15 00:20 → OBSVTOIN 11-15 07:40 → MED SURG 11-15 10:25
PROVIDERS: ADMIT General Practice; ATTEND General Practice
DX: J18.9 Pneumonia, unspecified organism (principal); I48.20 Chronic atrial fibrillation, unspecified; I11.0 Hypertensive heart disease with heart failure; I50.9 Heart failure, unspecified; E78.00 Pure hypercholesterolemia, unspecified; J45.909 Unspecified asthma, uncomplicated; E11.9 Type 2 diabetes mellitus without complications; E03.9 Hypothyroidism, unspecified; Z79.899 Other long term (current) drug therapy; Z20.828 Contact with and (suspected) exposure to other viral communicable diseases
CPT/HCPCS: 0241U; 36000; 36415; 71045; 71270; 80048; 80053; 81015; 82947; 83036; 83735; 83880; 84145; 84443; 84484; 84703; 85025; 85379; 87040; 87086; 94640; 94660; 94760; 96365; 96374; 96375; 96376; 99284; J0456; J0696; J1817; J2270; J2405; J2930; A9270-GY

== ENCOUNTER 2022-02-21 20:53 | Emergency (ER) | payer OTHER ==
[2022-02-21 21:14] VITALS: BP 165/101; PULSE 99; O2SAT 100
[2022-02-21] MEDS ORDERED: PERCOCET TABLET 5/325MG PO STA ×2 (21:23)
[2022-02-21] MEDS ORDERED: KEFLEX 500 MG PO ONE (21:23)
--- NOTE | 2022-02-21 21:28 | ERPHSYRPT ---
- History of Present Illness Time Seen by Provider: 02/21/22 21:15 Source: patient, family Exam Limitations: no limitations Patient Subjective Stated Complaint: pt states "I have a bad tooth that has been hurting for a week and today my R face started swelling." Triage Nursing Assessment: pt ambulatory to bed by self, pt alert and oriented x3, pt c/o R upper tooth pain x1 week and R facial swelling that started today, pt denies fever at home, pt rating pain 10/10 Physician History: This is a 41-year-old morbidly obese white female patient of Dr. Maguire who presents with 1 week history of right upper tooth ache. The pain is persisted over this period of time and in the last 1 to 2 days she has had increased right cheek swelling. Patient has a history of diabetes, congestive heart failure, anxiety issues, chronic anemia and gastroesophageal reflux disease. Patient does not have dental insurance. However, she is going to follow-up with a dentist on 02/23/2022 to see if there is some way to work out a payment program for her to deal with this current dental infection. Timing/Duration: gradual onset Prearrival Treatment: over the counter meds Modifying Factors: Improves With: nothing Associated Symptoms: facial pain/swelling (Right cheek), tooth pain (Right upper molars) Allergies/Adverse Reactions: Sulfa (Sulfonamide Antibiotics) [Sulfa(Sulfonamide Antibiotics)] Allergy (Mild, Verified 02/21/22 21:07) Rash rash Home Medications: Metformin HCl 500 mg [Glucophage 500 MG] 1,000 mg PO BID 07/14/14 [History] Famotidine 40 mg PO BID 03/09/16 [History] Diphenhydramine HCl 25 mg [Benadryl 25 mg Capsule] 25 mg PO HS 05/28/16 [History] Levothyroxine Sodium 75 Mcg [Synthroid 75 Mcg] 50 mcg PO DAILY 11/04/16 [History] Rivaroxaban 10 mg Tablet [Xarelto 10 mg Tablet] 20 mg PO DAILY 08/28/17 [History] Topiramate 25 mg [Topamax 25 MG] 50 mg PO BID 10/14/17 [History] Gabapentin [Neurontin ] 400 mg PO BID 12/07/18 [History] Aspirin 81 mg PO DAILY 03/02/20 [History] Atorvastatin Calcium 40 mg PO HS 11/14/21 [History] Insulin Detemir [Levemir] 60 unit SQ HS 11/14/21 [History] Lorazepam 0.5 mg [Ativan 0.5 MG] 0.5 mg PO BID 11/14/21 [History] Metoprolol Tartrate 50 mg [Lopressor 50 MG] 50 mg PO DAILY 11/14/21 [History] dilTIAZem HCL [Diltiazem 24Hr ER (Cd)] 120 mg PO DAILY 11/14/21 [History] Albuterol Sulfate [Proair Hfa] 2 puff IH Q4H PRN PRN 11/15/21 [History] Hx Tetanus, Diphtheria Vaccination/Date Given: Yes Hx Influenza Vaccination/Date Given: Yes Hx Pneumococcal Vaccination/Date Given: No Immunizations Up to Date: No Travel Risk - International Travel Have you traveled outside of the country in past 3 weeks: No - Coronavirus Screening Are you exhibiting any of the following symptoms?: No Close contact with a COVID-19 positive Pt in past 14-21 Days: No - Vaccine Status Have you recieved a Covid-19 vaccination: Yes [employer]: [email or web address] - Vaccination Dates Date of 2cond Vaccination (if applicable): 2020 - Review of Systems Constitutional: No Symptoms Eyes: No Symptoms Ears, Nose, & Throat: Other (Dental pain, dental caries) Respiratory: No Symptoms Cardiac: No Symptoms Abdominal/Gastrointestinal: No Symptoms Genitourinary Symptoms: No Symptoms Musculoskeletal: No Symptoms Skin: No Symptoms Neurological: No Symptoms Psychological: No Symptoms Endocrine: No Symptoms Hematologic/Lymphatic: No Symptoms Immunological/Allergic: No Symptoms All Other Systems: Reviewed and Negative - Past Medical History Pertinent Past Medical History: Yes Neurological History: Migraines, Peripheral Neuropathy ENT History: No Pertinent History Cardiac History: Congestive Heart Failure, High Cholesterol, Hypertension, Other Respiratory History: Asthma, Bronchitis, Pneumonia, Sleep Apnea Endocrine Medical History: Diabetes Type II, Hypothyroidism Musculoskeletal History: No Pertinent History GI Medical History: GERD History: No Pertinent History Psycho-Social History: Anxiety, Depression Female Reproductive Disorders: Fibroids Other Medical History: Cath Report 09/25/19 coronary arteries clean, leaky heart valve. ITP - Past Surgical History Past Surgical History: Yes Neuro Surgical History: No Pertinent History Cardiac: Cardiac Catheterization Respiratory: No Pertinent History Gastrointestinal: No Pertinent History Genitourinary: No Pertinent History Musculoskeletal: Other Female Surgical History: No Pertinent History Other Surgical History: bunion to right foot - Social History Smoking Status: Never smoker Exposure to second hand smoke: No Alcohol Use: None Drug Use: none Patient Lives Alone: No Significant Family History: no pertinent family hx, heart disease, hypertension - Female History Hx Last Menstrual Period: 02/19/2022 Hx Now: No - Nursing Vital Signs Nursing Vital Signs: Initial Vital Signs Temperature 97.6 F 02/21/22 21:08 Pulse Rate 99 H 02/21/22 21:08 Respiratory Rate 18 02/21/22 21:08 Blood Pressure 165/101 02/21/22 21:08 O2 Sat by Pulse Oximetry 100 02/21/22 21:08 Pain Scale Pain Intensity 10 - Physical Exam General Appearance: no apparent distress, alert, anxiety, obese Eye Exam: bilateral eye: normal inspection, PERRL, EOMI Ear Exam: bilateral ear: auricle normal Nasal Exam: normal inspection Throat Exam: normal, pharynx normal, dental tenderness (Right upper dental molars), moist mucus membranes Neck Exam: normal inspection, non-tender, supple, full range of motion Cardiovascular/Respiratory Exam: chest non-tender, no respiratory distress Abdominal Exam: non-tender Neurologic Exam: alert, 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, 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, 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, normal mood/affect, nml cerebellar function, nml station & gait, sensation nml Skin Exam: normal color, warm, dry SpO2 Interpretation: normal SpO2: 100 O2 Delivery: Room Air - Course Nursing assessment & vital signs reviewed: Yes Ordered Tests: Medication Summary Generic Name Dose Route Start Last Admin Trade Name Freq PRN Reason Stop Dose Admin Cephalexin HCl 500 mg 02/21/22 21:23 Cephalexin Mh500 Mg Capsule PO 02/21/22 21:24 STAT ONE Oxycodone/Acetaminophen 1 tab 02/21/22 21:23 Oxycodone Hcl/Apap 5 Mg/325 Mg Tablet PO 02/21/22 21:24 STAT STA - Progress Progress: unchanged Counseled pt/family regarding: diagnosis, need for follow-up - Departure Departure Disposition: Home Clinical Impression: Pain due to dental caries Condition: Stable Critical Care Time: No Referrals: TIM MAGUIRE MD [Primary Care Provider] - Follow up/PCP as directed Additional Instructions: Follow-up with a dentist for definitive care. Take your antibiotics as prescribed. After completing your Percocet pain medicine, may start Tylenol and ibuprofen. Prescriptions: Cephalexin Mh 500 mg [Keflex 500 mg] 500 mg PO TID #21 cap
[2022-02-21] MEDS ORDERED: KEFLEX 500 MG ONE (21:33)
[2022-02-21] MEDS ORDERED: PERCOCET TABLET 5/325MG ONE (21:33)
== END 2022-02-21 21:49 | disposition home or self-care (01) ==
LOC: ED 20:53
DX: K02.9 Dental caries, unspecified (principal); K08.89 Other specified disorders of teeth and supporting structures; E78.5 Hyperlipidemia, unspecified; I11.0 Hypertensive heart disease with heart failure; I50.9 Heart failure, unspecified; E11.42 Type 2 diabetes mellitus with diabetic polyneuropathy; Z79.4 Long term (current) use of insulin; Z79.84 Long term (current) use of oral hypoglycemic drugs; Z79.899 Other long term (current) drug therapy
CPT/HCPCS: 99282; A9270-GY

== ENCOUNTER 2023-05-16 17:21 | Emergency (ER) | payer OTHER ==
[2023-05-16 17:41] VITALS: TEMP 97.5
--- NOTE | 2023-05-16 17:51 | ERPHSYRPT ---
- History of Present Illness Source: patient, EMS Exam Limitations: no limitations Patient Subjective Stated Complaint: C/O SOB that started at around 1630 today Triage Nursing Assessment: Patient arrived by ambulance. She was able to stand and transfer self from ambulance cot to ER bed. Some labored breathing noted. She is alert and oriented. Right lung base diminished. No coughing noted during assessment. Skin tone normal. Timing/Duration: day(s) (3 days) Activities at Onset: rest Severity of Dyspnea-Max: severe Severity of Dyspnea-Current: mild Possible Cause: occasional episodes Modifying Factors: Improves With: other (Better with DuoNeb and route) Associated Symptoms: denies symptoms Hx Tetanus, Diphtheria Vaccination/Date Given: Yes Hx Influenza Vaccination/Date Given: Yes Hx Pneumococcal Vaccination/Date Given: No Immunizations Up to Date: Yes <BLAS CASTILLO - Last Filed: 05/16/23 19:15> <SHELLI FINCH - Last Filed: 05/16/23 21:31> - History of Present Illness Physician History: 42-year-old female with history of asthma/COPD presents per EMS with wheezing and increased dyspnea for 3 days. Patient does not smoke and has increased use of her albuterol nebulizer treatments. She denies fever, cough, runny nose, nausea, vomiting, diarrhea, melena, hematochezia, abdominal pain, and chest pain. Patient is on Xarelto due to history of A-fib. She denies history of DVT/PE. EMS gave patient 125 mg IM Solu-Medrol and route and also DuoNeb with improvement. (BLAS CASTILLO) Allergies/Adverse Reactions: Sulfa (Sulfonamide Antibiotics) [Sulfa(Sulfonamide Antibiotics)] Allergy (Mild, Verified 05/16/23 17:26) Rash rash Home Medications: Famotidine 40 mg PO DAILY 03/09/16 [History] Levothyroxine Sodium 75 Mcg [Synthroid 75 Mcg] 50 mcg PO DAILY 11/04/16 [History] Rivaroxaban 10 mg Tablet [Xarelto 10 mg Tablet] 20 mg PO DAILY 08/28/17 [History] Topiramate 25 mg [Topamax 25 MG] 50 mg PO BID 10/14/17 [History] Gabapentin [Neurontin ] 400 mg PO BID 12/07/18 [History] Atorvastatin Calcium 40 mg PO HS 11/14/21 [History] Insulin Detemir [Levemir] 60 unit SQ HS 11/14/21 [History] Lorazepam 0.5 mg [Ativan 0.5 MG] 0.5 mg PO BID 11/14/21 [History] dilTIAZem HCL [Diltiazem 24Hr ER (Cd)] 120 mg PO DAILY 11/14/21 [History] Albuterol Sulfate [Proair Hfa] 2 puff IH Q4H PRN PRN 11/15/21 [History] Diphenhydramine HCl 25 mg [Benadryl 25 mg Capsule] 1 cap PO HS 05/16/23 [History] Travel Risk - International Travel Have you traveled outside of the country in past 3 weeks: No - Coronavirus Screening Are you exhibiting any of the following symptoms?: Yes Symptoms: Cough: New Onset, Shortness of Breath Close contact with a COVID-19 positive Pt in past 14-21 Days: No - Vaccine Status Have you recieved a Covid-19 vaccination: Yes 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: [employer] - Vaccination Dates Date of 2cond Vaccination (if applicable): 2020 <BLAS CASTILLO - Last Filed: 05/16/23 19:15> - Review of Systems Constitutional: No Symptoms Eyes: No Symptoms Ears, Nose, & Throat: No Symptoms Respiratory: Dyspnea, Dyspnea on Exertion (MONZON), Wheezing Cardiac: No Symptoms Abdominal/Gastrointestinal: No Symptoms Genitourinary Symptoms: No Symptoms Musculoskeletal: No Symptoms Skin: No Symptoms Neurological: No Symptoms Psychological: No Symptoms Endocrine: No Symptoms Hematologic/Lymphatic: No Symptoms Immunological/Allergic: No Symptoms <BLAS CASTILLO - Last Filed: 05/16/23 19:15> - Past Medical History Pertinent Past Medical History: Yes Neurological History: Migraines, Peripheral Neuropathy ENT History: No Pertinent History Cardiac History: Congestive Heart Failure, High Cholesterol, Hypertension, Other Respiratory History: Asthma, Bronchitis, Pneumonia, Sleep Apnea Endocrine Medical History: Diabetes Type II, Hypothyroidism Musculoskeletal History: No Pertinent History GI Medical History: GERD History: No Pertinent History Psycho-Social History: Anxiety, Depression Female Reproductive Disorders: Fibroids Other Medical History: Cath Report 09/25/19 coronary arteries clean, leaky heart valve. ITP - Past Surgical History Past Surgical History: Yes Neuro Surgical History: No Pertinent History Cardiac: Cardiac Catheterization, Other Respiratory: No Pertinent History Gastrointestinal: No Pertinent History Genitourinary: No Pertinent History Musculoskeletal: Other Female Surgical History: No Pertinent History Other Surgical History: bunion to right foot, ablasion - Social History Smoking Status: Never smoker Exposure to second hand smoke: No Alcohol Use: None Drug Use: none Patient Lives Alone: No Significant Family History: no pertinent family hx, heart disease, hypertension - Female History Hx Now: No <BLAS CASTILLO - Last Filed: 05/16/23 19:15> - Physical Exam General Appearance: no apparent distress Eye Exam: PERRL/EOMI, eyes nml inspection Ears, Nose, Throat Exam: hearing grossly normal, normal ENT inspection, normal pharynx Neck Exam: normal inspection, non-tender, supple, full range of motion, No Brudz inski, No Kernig's, No meningismus, No carotid bruit Respiratory Exam: other (Mild scattered wheezes bilaterally with marked decreased breath sounds at right base.) Cardiovascular/Chest Exam: normal heart sounds, regular rate/rhythm, normal peripheral pulses, No murmur Abdominal/Gastrointestinal Exam: soft (Morbid obese, soft, good bowel sounds all 4 quadrants, nontender to palpation) Extremity Exam: non-tender (No significant edema noted bilaterally) Peripheral Pulses Exam: carotid (R): 2+, carotid (L): 2+ Neurologic Exam: alert, 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, cooperative, fur cleaner II-XII nml as tested, normal mood/affect, nml cerebellar function, nml station & gait, sensation nml Skin Exam: normal color, warm, dry, No rash Lymphatic Exam: No adenopathy SpO2 Interpretation: normal SpO2: 97 O2 Delivery: Room Air <BLAS CASTILLO - Last Filed: 05/16/23 19:15> - Nursing Vital Signs Nursing Vital Signs: Initial Vital Signs Temperature 97.5 F 05/16/23 17:21 Pulse Rate 89 05/16/23 17:21 Respiratory Rate 14 05/16/23 17:21 Blood Pressure 120/74 05/16/23 17:21 O2 Sat by Pulse Oximetry 97 05/16/23 17:21 Pain Scale Pain Intensity 0 Within normal limits (BLAS CASTILLO) - Course Nursing assessment & vital signs reviewed: Yes EKG Interpreted by Me: RATE (Normal sinus rhythm/rate 90/prolonged QTc/poor R wave progression/right atrial enlargement/nonspecific ST-T wave changes T waves somewhat flattened) - Radiology Exams Chest X-ray Interpretation: Reviewed by me (Opacities bilateral lower lung zones.), Teleradiologist Report <BLAS CASTILLO - Last Filed: 05/16/23 19:15> Ordered Tests: Active Orders 24 hr Category Date Time Status EKG-ER Only STAT Care 05/16/23 17:44 Active CHEST 1 VIEW (PORTABLE) Stat Exams 05/16/23 17:45 Completed CHEST WITH CONTRAST [CT] Stat Exams 05/16/23 18:31 Completed CBC W DIFF Stat Lab 05/16/23 17:30 Completed CMP Stat Lab 05/16/23 17:30 Completed D-DIMER QUANTITATIVE Stat Lab 05/16/23 17:30 Completed NT PRO BNPII Stat Lab 05/16/23 17:30 Completed PROTIME WITH INR Stat Lab 05/16/23 17:30 Completed PTT Stat Lab 05/16/23 17:30 Completed TROPONIN Q4H Lab 05/16/23 17:30 Completed TROPONIN Q4H Lab 05/16/23 21:45 Completed TROPONIN Q4H Lab 05/17/23 01:45 Ordered Medication Summary Discontinued Medications Generic Name Dose Route Start Last Admin Trade Name Freq PRN Reason Stop Dose Admin Furosemide 40 mg 05/16/23 19:55 05/16/23 20:07 Furosemide 40 Mg/4 Ml Vial IV 05/16/23 19:56 40 mg STAT ONE Administration Furosemide Confirm 05/16/23 20:06 Furosemide 40 Mg/4 Ml Vial Administered 05/16/23 20:07 Dose 40 mg .ROUTE .STK-MED ONE Ondansetron HCl 4 mg 05/16/23 19:23 05/16/23 19:50 Ondansetron Hcl 4 Mg/2 Ml Vial IV 05/16/23 19:24 4 mg STAT ONE Administration Ondansetron HCl Confirm 05/16/23 19:50 Ondansetron Hcl 4 Mg/2 Ml Vial Administered 05/16/23 19:51 Dose 4 mg .ROUTE .STK-MED ONE Lab/Rad Data: Laboratory Result Diagrams 05/16/23 17:30 05/16/23 17:30 Laboratory Results 05/16/23 05/16/23 05/16/23 Range/Units 21:45 17:50 17:30 WBC (4.0-10.5) x10^3/uL RBC (4.1-5.4) x10^6/uL Hgb (12.0-16.0) g/dL Hct (35-47) % MCV (78-100) fL MCH (26-32) pg MCHC (32-36) g/dL RDW (11.5-14.0) % Plt Count (150-450) x10^3/uL MPV (7.5-11.0) fL Gran % (36.0-66.0) % Immature Gran % (Auto) (0.00-0.4) % Nucleat RBC Rel Count (0.00-0.1) % Eos # (Auto) (0-0.5) x10^3/uL Immature Gran # (Auto) (0.00-0.03) x10^3u/L Absolute Lymphs (auto) (1.0-4.6) x10^3/uL Absolute Monos (auto) (0.0-1.3) x10^3/uL Absolute Nucleated RBC (0.00-0.01) x10^3u/L Lymphocytes % (24.0-44.0) % Monocytes % (0.0-12.0) % Eosinophils % (0.00-5.0) % Basophils % (0.0-0.4) % Absolute Granulocytes (1.4-6.9) x10^3/uL Basophils # (0-0.4) x10^3/uL PT (9.4-12.5) SECONDS INR (0.8-3.0) APTT (25.1-36.5) SECONDS D-Dimer (0.0-0.50) mg/L Sodium (137-145) mmol/L Potassium (3.5-5.1) mmol/L Chloride (98-107) mmol/L Carbon Dioxide (22-30) mmol/L Anion Gap (5-15) MEQ/L BUN (7-17) mg/dL Creatinine (0.52-1.04) mg/dL Estimated GFR ML/MIN Glucose (74-106) mg/dL Calcium (8.4-10.2) mg/dL Total Bilirubin (0.2-1.3) mg/dL AST (14-36) U/L ALT (0-35) U/L Alkaline Phosphatase (38-126) U/L Troponin I < 0.012 < 0.012 (0.000-0.034) ng/mL NT-Pro-B Natriuret Pep (<300) pg/mL Serum Total Protein (6.3-8.2) g/dL Albumin (3.5-5.0) g/dL Influenza Type A Ag NEGATIVE (NEGATIVE) Influenza Type B Ag NEGATIVE (NEGATIVE) RSV (PCR) NEGATIVE (NEGATIVE) SARS-CoV-2 (PCR) NEGATIVE (NEGATIVE) 05/16/23 05/16/23 05/16/23 Range/Units 17:30 17:30 17:30 WBC 7.0 (4.0-10.5) x10^3/uL RBC 3.96 L (4.1-5.4) x10^6/uL Hgb 9.1 L (12.0-16.0) g/dL Hct 31.6 L (35-47) % MCV 79.8 (78-100) fL MCH 23.0 L (26-32) pg MCHC 28.8 L (32-36) g/dL RDW 16.0 H (11.5-14.0) % Plt Count 284 (150-450) x10^3/uL MPV 9.9 (7.5-11.0) fL Gran % 66.1 H (36.0-66.0) % Immature Gran % (Auto) 0.9 H (0.00-0.4) % Nucleat RBC Rel Count 0.0 (0.00-0.1) % Eos # (Auto) 0.08 (0-0.5) x10^3/uL Immature Gran # (Auto) 0.06 H (0.00-0.03) x10^3u/L Absolute Lymphs (auto) 1.75 (1.0-4.6) x10^3/uL Absolute Monos (auto) 0.47 (0.0-1.3) x10^3/uL Absolute Nucleated RBC 0.00 (0.00-0.01) x10^3u/L Lymphocytes % 24.9 (24.0-44.0) % Monocytes % 6.7 (0.0-12.0) % Eosinophils % 1.1 (0.00-5.0) % Basophils % 0.3 (0.0-0.4) % Absolute Granulocytes 4.66 (1.4-6.9) x10^3/uL Basophils # 0.02 (0-0.4) x10^3/uL PT 10.5 (9.4-12.5) SECONDS INR 0.96 (0.8-3.0) APTT 23.1 L (25.1-36.5) SECONDS D-Dimer 0.86 H* (0.0-0.50) mg/L Sodium 136 L (137-145) mmol/L Potassium 3.9 (3.5-5.1) mmol/L Chloride 104 (98-107) mmol/L Carbon Dioxide 22 (22-30) mmol/L Anion Gap 13.7 (5-15) MEQ/L BUN 14 (7-17) mg/dL Creatinine 0.56 (0.52-1.04) mg/dL Estimated GFR 116.1 ML/MIN Glucose 180 H (74-106) mg/dL Calcium 8.9 (8.4-10.2) mg/dL Total Bilirubin 0.90 (0.2-1.3) mg/dL AST 30 (14-36) U/L ALT 27 (0-35) U/L Alkaline Phosphatase 112 (38-126) U/L Troponin I (0.000-0.034) ng/mL NT-Pro-B Natriuret Pep 954 (<300) pg/mL Serum Total Protein 7.6 (6.3-8.2) g/dL Albumin 4.1 (3.5-5.0) g/dL Influenza Type A Ag (NEGATIVE) Influenza Type B Ag (NEGATIVE) RSV (PCR) (NEGATIVE) SARS-CoV-2 (PCR) (NEGATIVE) - Progress Progress: improved, re-examined Air Movement: good Blood Culture(s) Obtained: Yes Antibiotics given: No Counseled pt/family regarding: lab results, diagnosis, need for follow-up, rad results <SHELLI FINCH - Last Filed: 05/16/23 21:31> - Progress Progress Note: 05/16/23 20:02 The chest x-ray was interpreted by the radiologist. And I reviewed the impression. The impression is hazy opacities bilateral lower lung zones and c ardiomegaly. CT scan of the chest with contrast shows no radiologic evidence for pulmonary embolism. There is cardiomegaly present with mild bilateral pleural effusions. There is no mention of infiltrate or pneumonia on the CT scan. I reexamined the patient. She has no chest pain. Her shortness of breath has improved. Her room air oxygen saturation level is 96%. I reviewed the chest x- ray and CT scan of the chest with contrast results with the patient and family member. I will not treat her for pneumonia since the CT scan, which is more sensitive, is negative for any infiltrate. However, she does have mild CHF. She has known history of this and is off of her diuretic. She has switched doctors. We will provide her with 40 mg of intravenous Lasix. I will remotely send a prescription to her pharmacy for Lasix 20 mg twice a day for 2 days only. Patient will be instructed to follow-up with her primary care provider tomorrow, 05/09/2023, for reevaluation and further management in the next 3 to 5 days and to discuss whether or not the patient needs to be on chronic Lasix. I will keep her here to repeat a 3-hour twelve-lead EKG and 3-hour troponin level. If these are not acute or emergent, we will discharge the patient to home. 05/16/23 21:30 Patient reexamined. She has no complaints of shortness of breath or chest pain. Her repeat, 3-hour troponin level is normal. Her repeat, 3-hour twelve-lead EKG shows a heart rate of 87. It is normal sinus rhythm. There is borderline prolonged MO interval. There is no evidence of any acute ischemic changes. 05/16/23 21:31 Her room air oxygen saturation level is 97 to 98%. (SHELLI FINCH) Medical Desision Making - Independent Historian Additional History obtained from: Family - Diagnostic Testing Diagnostic test were ordered, analyzed, and reviewed by me: Yes Radiological Interpretation: Reviewed by me, Teleradiologist Report - Risk of complications The pt has a mod risk of morbidity or mortality based on: Need for prescription drug management <SHELLI FINCH - Last Filed: 05/16/23 21:31> <BLAS CASTILLO - Last Filed: 05/16/23 19:15> - Departure Departure Disposition: Home Critical Care Time: No <SHELLI FINCH - Last Filed: 05/16/23 21:31> - Departure Clinical Impression: Mild congestive heart failure Condition: Stable Referrals: TIM MAGUIRE MD [ACTIVE STAFF] - Follow up/PCP as directed Instructions: Heart Failure Additional Instructions: Take your medication as prescribed. Call your primary care physician tomorrow, 05/09/2023, to make a follow-up appointment for further evaluation and management and to discuss whether or not you need to be on chronic diuretic therapy. Prescriptions: Furosemide 20 mg [Lasix 20 mg] 20 mg PO BID 2 Days #4 tablet
[2023-05-16 18:03] LABS: Absolute Neutrophil Ct (ANC) 4.66 x10^3/uL (1.4-6.9); BASOPHIL % 0.3 % (0.0-0.4); Basophil (Absolute #) 0.02 x10^3/uL (0-0.4); Eosinophil % 1.1 % (0.00-5.0); Eosinophil (Absolute #) 0.08 x10^3/uL (0-0.5); Hematocrit 31.6 % (35-47); Hemoglobin 9.1 g/dL (12.0-16.0); IMMATURE GRAN # 0.06 x10^3u/L (0.00-0.03); IMMATURE GRAN % 0.9 % (0.00-0.4); Lymphocyte (Absolute #) 1.75 x10^3/uL (1.0-4.6); Lymphocytes % 24.9 % (24.0-44.0); Mean Cell Volume 79.8 fL (78-100); Mean Corpuscular Hgb Concent. 28.8 g/dL (32-36); Mean Platelet Volume 9.9 fL (7.5-11.0); Monocyte (Absolute #) 0.47 x10^3/uL (0.0-1.3); Monocytes % 6.7 % (0.0-12.0); Neutrophil % 66.1 % (36.0-66.0); Platelet Count 284 x10^3/uL (150-450); Red Blood Count 3.96 x10^6/uL (4.1-5.4)
[2023-05-16 18:26] LABS: INR 0.96 (0.8-3.0); PROTIME 10.5 SECONDS (9.4-12.5); PTT 23.1 SECONDS (25.1-36.5)
[2023-05-16 18:28] LABS: ALBUMIN 4.1 g/dL (3.5-5.0); ANION GAP 13.7 MEQ/L (5-15); BILIRUBIN,TOTAL 0.9 mg/dL (0.2-1.3); Calcium 8.9 mg/dL (8.4-10.2); Creatinine 1 0.56 mg/dL (0.52-1.04); EST GLOMERULAR FILTRATION RATE 116.1 ML/MIN; Potassium 3.9 mmol/L (3.5-5.1); Total Protein 7.6 g/dL (6.3-8.2)
[2023-05-16 18:31] LABS: D-DIMER QUANTITATIVE 0.86 mg/L (0.0-0.50)
[2023-05-16 18:37] LABS: INFLUENZA A NEGATIVE (NEGATIVE); INFLUENZA B NEGATIVE (NEGATIVE); RESPIRATORY SYNCTIAL VIRUS NEGATIVE (NEGATIVE); SARS-CoV-2 Xpert Express NEGATIVE (NEGATIVE)
--- NOTE | 2023-05-16 19:08 | XRAY ---
CLINICAL HISTORY:Dyspnea COMPARISON:None. TECHNIQUE:X-ray of the chest was performed in 1 view: AP upright projection. FINDINGS: Hazy opacities are seen at both lower lung zones. No hydrothorax or pneumothorax is seen. No fracture is seen. There is no evidence of any focal area of consolidation. The hilar and pulmonary vasculature is normal. Cardiomegaly. The costophrenic angles are clear. IMPRESSION: 1. Hazy opacities are seen at both lower lung zones. Possible pneumonic infiltrates. For clinical correlation. 2. Cardiomegaly. Electronically Signed by: Arnaud Villalta MD. (05/16/2023 19:04:29 EST)
[2023-05-16] MEDS ORDERED: Zofran 4 MG/2 ML VIAL IV ONE (19:23)
[2023-05-16] MEDS ORDERED: Zofran 4 MG/2 ML VIAL ONE (19:50)
--- NOTE | 2023-05-16 19:50 | XRAY ---
CLINICAL HISTORY:PE COMPARISON:None. TECHNIQUE:CT chest has been performed with IV contrast. Coronal and sagittal reformatted images have also been acquired. FINDINGS: The main pulmonary artery trunk, its main and segmental branches show normal opacification. No thrombosis or area of stenosis identified. The aorta and its main branches also show normal origin and opacification. No aneurysmal dilatation, thrombosis, dissection, or area of stenosis seen. Both lungs show mosaic attenuation which is likely due to congestion. No definite area of consolidation or soft tissue nodular infiltration seen in both lungs. No possible infarction seen. Heart size is enlarged. Bilateral mild pleural effusion is noted. No pericardial effusion is noted. No pathologically significant mediastinal, axillary, or supraclavicular lymphadenopathy. The visualized skeleton shows mild degenerative changes, no lytic or sclerotic osseous lesion seen. Slices acquired through the upper abdomen are unremarkable. IMPRESSION: 1. No radiological evidence of pulmonary embolism on this CT Chest. 2. Cardiomegaly with mosaic attenuation of both lungs and mild pleural effusion seen bilaterally, findings are concerning for pulmonary edema. Please correlate with the clinical picture. Electronically Signed by: Arnaud Villalta MD. (05/16/2023 19:46:31 EST)
[2023-05-16] MEDS ORDERED: Lasix 40 MG/4 ML IV ONE (19:55)
[2023-05-16] MEDS ORDERED: Lasix 40 MG/4 ML ONE (20:06)
[2023-05-16 20:17] VITALS: RESP 19
[2023-05-16 21:05] VITALS: BP 139/77; PULSE 81; O2SAT 96
[2023-05-16 21:53] LABS: Slide Review 1 YES
== END 2023-05-16 21:55 | disposition home or self-care (01) ==
LOC: ED 17:21
DX: I11.0 Hypertensive heart disease with heart failure (principal); I50.9 Heart failure, unspecified; R06.00 Dyspnea, unspecified; E11.42 Type 2 diabetes mellitus with diabetic polyneuropathy; E78.5 Hyperlipidemia, unspecified; Z79.01 Long term (current) use of anticoagulants; Z79.4 Long term (current) use of insulin; Z79.899 Other long term (current) drug therapy; Z20.828 Contact with and (suspected) exposure to other viral communicable diseases
CPT/HCPCS: 0241U; 36000; 36415; 71045; 71260; 80053; 83880; 84484; 85025; 85379; 85610; 85730; 93005; 96374; 99284; J1940; J2405

== ENCOUNTER 2023-08-23 19:49 | Emergency (ER) | payer OTHER ==
[2023-08-23 19:57] VITALS: RESP 22; TEMP 97.9
[2023-08-23 20:09] VITALS: PULSE 86; O2SAT 97
[2023-08-23] MEDS ORDERED: Compazine 10 MG/2 ML ONE (21:03)
[2023-08-23] MEDS ORDERED: TORAdol 30 mg Injection ONE (21:03)
[2023-08-23] MEDS: Compazine 10 MG/2 ML IV ONE (21:18)
[2023-08-23] MEDS: TORAdol 30 mg Injection IV ONE (21:22)
--- NOTE | 2023-08-23 21:22 | ERPHSYRPT ---
- History of Present Illness Time Seen by Provider: 08/23/23 20:00 Source: patient Exam Limitations: no limitations Patient Subjective Stated Complaint: headache since yesterday Triage Nursing Assessment: Pt ambulated into ER without diff, spouse at bedside. Pt c/o headache since yesterday with relief occasionally, but headache has returned and unbale to get rid of it. Pt c/o nausea, denies any dizziness or loc. Physician History: 43-year-old female with a history of chronic migraine presents to our ED with a migraine headache that started yesterday. Today's headache is somewhat worse than normal. No associated numbness tingling or weakness. No blurred vision. No neck pain. No meningeal signs no fever. Symptoms are constant. Symptoms are moderate in intensity. Patient displays sound and light sensitivity. Patient otherwise feels well. She denies trauma. Patient voices no other complaints or concerns at this time. Portions of this note were created with voice recognition technology. There may be grammatical, spelling, punctuation or sound alike errors Timing/Duration: yesterday Quality: aching Head Pain Location: frontal Severity of Pain-Max: moderate Severity of Pain-Current: mild Recent Head Trauma: no recent headache/trauma Modifying Factors: Improves With: exposure to light Associated Symptoms: other (Patient complains of some nausea), No stiff neck Previous symptoms: same symptoms as today (Symptoms similar to previous but somewhat worse today) Allergies/Adverse Reactions: Sulfa (Sulfonamide Antibiotics) [Sulfa(Sulfonamide Antibiotics)] Allergy (Mild, Verified 08/23/23 20:03) Rash rash Home Medications: Famotidine 40 mg PO DAILY 03/09/16 [History] Levothyroxine Sodium 75 Mcg [Synthroid 75 Mcg] 75 mcg PO DAILY 11/04/16 [History] Rivaroxaban 10 mg Tablet [Xarelto 10 mg Tablet] 20 mg PO DAILY 08/28/17 [History] Gabapentin [Neurontin ] 400 mg PO BID 12/07/18 [History] Atorvastatin Calcium 40 mg PO HS 11/14/21 [History] Insulin Detemir [Levemir] 60 unit SQ HS PRN PRN 11/14/21 [History] dilTIAZem HCL [Diltiazem 24Hr ER (Cd)] 120 mg PO DAILY 11/14/21 [History] Albuterol Sulfate [Proair Hfa] 2 puff IH Q4H PRN PRN 11/15/21 [History] Diphenhydramine HCl 25 mg [Benadryl 25 mg Capsule] 1 cap PO HS 05/16/23 [History] Hx Tetanus, Diphtheria Vaccination/Date Given: Yes Hx Influenza Vaccination/Date Given: No Hx Pneumococcal Vaccination/Date Given: No Travel Risk - International Travel Have you traveled outside of the country in past 3 weeks: No - Coronavirus Screening Are you exhibiting any of the following symptoms?: Yes Symptoms: Headaches/Body Aches/Fatigue Close contact with a COVID-19 positive Pt in past 14-21 Days: No - Vaccine Status Have you recieved a Covid-19 vaccination: Yes 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: [employer] - Vaccination Dates Date of 2cond Vaccination (if applicable): 2020 - Review of Systems Constitutional: No Symptoms, No Fever, No Chills Eyes: No Symptoms Ears, Nose, & Throat: No Symptoms Respiratory: No Symptoms, No Cough, No Dyspnea Cardiac: No Symptoms, No Chest Pain, No Edema, No Syncope Abdominal/Gastrointestinal: No Symptoms, No Abdominal Pain, No Nausea, No Vomiting, No Diarrhea Genitourinary Symptoms: No Symptoms, No Dysuria Musculoskeletal: No Symptoms, No Back Pain, No Neck Pain Skin: No Symptoms, No Rash Neurological: No Symptoms, No Dizziness, No Focal Weakness, No Sensory Changes Psychological: No Symptoms Endocrine: No Symptoms Hematologic/Lymphatic: No Symptoms Immunological/Allergic: No Symptoms All Other Systems: Reviewed and Negative - Past Medical History Pertinent Past Medical History: Yes Neurological History: Migraines, Peripheral Neuropathy ENT History: No Pertinent History Cardiac History: Congestive Heart Failure, High Cholesterol, Hypertension, Other Respiratory History: Asthma, Bronchitis, Pneumonia, Sleep Apnea Endocrine Medical History: Diabetes Type II, Hypothyroidism Musculoskeletal History: No Pertinent History GI Medical History: GERD History: No Pertinent History Psycho-Social History: Anxiety, Depression Female Reproductive Disorders: Fibroids Other Medical History: Cath Report 09/25/19 coronary arteries clean, leaky heart valve. ITP - Past Surgical History Past Surgical History: Yes Neuro Surgical History: No Pertinent History Cardiac: Cardiac Catheterization, Other Respiratory: No Pertinent History Gastrointestinal: No Pertinent History Genitourinary: No Pertinent History Musculoskeletal: Other Female Surgical History: No Pertinent History Other Surgical History: bunion to right foot, ablation - Social History Smoking Status: Never smoker Exposure to second hand smoke: No Alcohol Use: None Drug Use: none Patient Lives Alone: No Significant Family History: no pertinent family hx, heart disease, hypertension - Female History Hx Last Menstrual Period: 08/17/23 Hx Now: No - Nursing Vital Signs Nursing Vital Signs: Initial Vital Signs Temperature 97.9 F 08/23/23 19:56 Pulse Rate 84 08/23/23 19:56 Respiratory Rate 22 08/23/23 19:56 Blood Pressure 143/75 08/23/23 19:56 O2 Sat by Pulse Oximetry 98 08/23/23 19:56 Pain Scale Pain Intensity 9 - Physical Exam General Appearance: no apparent distress Eye Exam: PERRL/EOMI Ears, Nose, Throat Exam: normal ENT inspection, moist mucous membranes Neck Exam: normal inspection, supple, full range of motion, No meningismus Respiratory Exam: normal breath sounds, lungs clear Cardiovascular Exam: regular rate/rhythm, normal heart sounds Gastrointestinal/Abdominal Exam: soft, No tenderness, No distention Back Exam: normal inspection, normal range of motion Mental Status Exam: 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, 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, 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 Exam: normal speech, PERRL, No facial droop Coordination/Gait Exam: normal cerebellar function Motor/Sensory Exam: no motor deficit, no sensory deficit Skin Exam: normal color, warm, dry, No rash Lymphatic Exam: No adenopathy SpO2 Interpretation: normal SpO2: 97 O2 Delivery: Room Air - Course Nursing assessment & vital signs reviewed: Yes - CT Exams Head CT Interpretation: Tele-radiologist Report (Continued normal head compared to 09/10/2019) Ordered Tests: Active Orders 24 hr Category Date Time Status IV Insertion STAT Care 08/23/23 20:58 Completed HEAD WITHOUT CONTRAST [CT] Stat Exams 08/23/23 21:00 Taken Medication Summary Discontinued Medications Generic Name Dose Route Start Last Admin Trade Name Felicianoq PRN Reason Stop Dose Admin Ketorolac Tromethamine 30 mg 08/23/23 20:59 08/23/23 21:22 Ketorolac Tromethamine 30 Mg/Ml Inj IV 08/23/23 21:00 30 mg STAT ONE Administration Ketorolac Tromethamine Confirm 08/23/23 21:03 Ketorolac Tromethamine 30 Mg/Ml Inj Administered 08/23/23 21:04 Dose 30 mg .ROUTE .STK-MED ONE Prochlorperazine Edisylate 10 mg 08/23/23 20:58 08/23/23 21:18 Prochlorperazine Edisylate 10 Mg/2 Ml Vial IV 08/23/23 20:59 10 mg STAT ONE Administration Prochlorperazine Edisylate Confirm 08/23/23 21:03 Prochlorperazine Edisylate 10 Mg/2 Ml Vial Administered 08/23/23 21:04 Dose 10 mg .ROUTE .STK-MED ONE - Progress Progress: improved Air Movement: good Progress Note: 43-year-old female presents to the emergency department for evaluation of a migraine headache. Physical exam essentially nonremarkable. CT head negative for acute intracranial pathology. Patient treated with Compazine and Toradol. Headache resolved. Patient states he is ready for discharge. No indication for further workup at this time. Patient agrees to follow-up with a primary care doctor within 48 hours for reevaluation. Portions of this note were created with voice recognition technology. There may be grammatical, spelling, punctuation or sound alike errors Complexity problem addressed is moderate acute complicated No critical care time Complexity of data reviewed and analyzed is moderate. Test ordered test reviewed. Results analyzed and correlated clinically with history and physical exam. Risk of complication and or risk of morbidity/mortality of patient management is low Vital stable. Time spent to discharge patient is approximately 20 minutes. Plan of care established for shared decision making. No social determinants of health present impede follow-up. Portions of this note were created with voice recognition technology. There may be grammatical, spelling, punctuation or sound alike errors 08/23/23 22:16 Blood Culture(s) Obtained: No Antibiotics given: No Counseled pt/family regarding: diagnosis, need for follow-up, rad results - Departure Departure Disposition: Home Clinical Impression: Migraine Condition: Stable Critical Care Time: No Referrals: ELADIO QUISPE MD [Primary Care Provider] - Follow up/PCP as directed Instructions: Headache, Adult ED Additional Instructions: Discharge/Care Plan JP MASON was seen on 08/23/23 in the Emergency Room. The patient was counseled regarding Diagnosis,Lab results, Imaging studies, need for follow up and when to return to the Emergency Room. Prescriptions given: Discharge Note I have spoken with the patient and/or caregivers. I have explained the patient's condition, diagnosis and treatment plan based on the information available to me at this time. I have answered the patient's and/or caregiver's questions and addressed any concerns. The patient and/or caregivers have as good understanding of the patient's diagnosis, condition and treatment plan as can be expected at this point. The vital signs have been stable. The patient's condition is stable and appropriate for discharge from the emergency department. The patient will pursue further outpatient evaluation with the primary care physician or other designated or consulting physician as outlined in the discharge instructions. The patient and/or caregivers are agreeable to this plan of care and follow-up instructions have been explained in detail. The patient and/or caregivers have received these instruction. The patient/and or caregivers are aware that any significant change in condition or worsening of symptoms should prompt an immediate return to this or the closest emergency department or call 911.
[2023-08-23 22:16] VITALS: BP 132/61
--- NOTE | 2023-08-24 08:36 | XRAY ---
Indication: Headache. Multiple contiguous axial images obtained through the head without contrast. Comparison: September 10, 2019 Normal appearing brain parenchyma, ventricles, and bony calvarium. Visualized paranasal sinuses and mastoid air cells are clear. Impression: Continued normal CT head without contrast exam.
== END 2023-08-23 22:27 | disposition home or self-care (01) ==
LOC: ED 19:49
DX: G43.909 Migraine, unspecified, not intractable, without status migrainosus (principal); E78.5 Hyperlipidemia, unspecified; I11.0 Hypertensive heart disease with heart failure; I50.9 Heart failure, unspecified; E11.42 Type 2 diabetes mellitus with diabetic polyneuropathy; Z79.01 Long term (current) use of anticoagulants; Z79.4 Long term (current) use of insulin; Z79.899 Other long term (current) drug therapy
CPT/HCPCS: 36000; 70450; 96374; 99284; J1885

== ENCOUNTER 2023-12-19 11:01 | Observation (INO) | payer SELFPAY ==
--- NOTE | 2023-12-19 11:32 | ERPHSYRPT ---
- History of Present Illness Time Seen by Provider: 12/19/23 11:32 Source: patient Exam Limitations: no limitations Patient Subjective Stated Complaint: SOB Triage Nursing Assessment: Patient brought back to ED per w/c and transferred self to bed. Patient A+O X3. Patient's skin pink, warm and dry. Patient complains of SOB that has gotten worse today. Patient states she has had a cough for the past month and has been seen twice and prescribed atb and steroids. Patient states she has a non productive cough. Lungs noted to have wheezing throughout. Patient complains of chest discomfort when coughing /10. Physician History: The patient, with a history of COPD, asthma, and AFib, presents with a persistent cough and shortness of breath for over a month. [facility] where she was prescribed antibiotics and steroids, but her symptoms did not improve. The cough is non-productive and associated with chest pain and headaches. She also reports feeling like she's going to pass out when walking from one room to another. She has been using an albuterol inhaler every four to six hours and albuterol breathing treatments, but these have not been helpful. She denies any swelling in her legs and reports no fevers, but does experience hot and cold flashes. She was recently tested for strep throat and COVID-19, both of which were negative. She has not had a chest x-ray. She is also on a daily inhaler for her COPD, the name of which she cannot recall, but it is a red inhaler. She denies smoking. Timing/Duration: week(s) (4) Activities at Onset: rest Severity of Dyspnea-Max: severe Severity of Dyspnea-Current: severe Possible Cause: frequent episodes, illness exposure Modifying Factors: Improves With: albuterol inhaler, albuterol nebulizer. Worsens With: activity, coughing, deep breath, exertion Associated Symptoms: constant, cough, chest pain/discomfort (with breathing), wheezing, No edema, No fever, No hemoptysis, No calf pain, No leg swelling, No productive cough Allergies/Adverse Reactions: Sulfa (Sulfonamide Antibiotics) [Sulfa(Sulfonamide Antibiotics)] Allergy (Mild, Verified 12/19/23 17:25) Rash rash Home Medications: Famotidine 40 mg PO BID 03/09/16 [History] Rivaroxaban 10 mg Tablet [Xarelto 10 mg Tablet] 20 mg PO DAILY 08/28/17 [History] Gabapentin [Neurontin ] 400 mg PO BID 12/07/18 [History] Atorvastatin Calcium 40 mg PO HS 11/14/21 [History] Insulin Detemir [Levemir] 60 unit SQ HS PRN PRN 11/14/21 [History] dilTIAZem HCL [Diltiazem 24Hr ER (Cd)] 120 mg PO DAILY 11/14/21 [History] Albuterol Sulfate [Proair Hfa] 2 puff IH Q4H PRN PRN 11/15/21 [History] Empagliflozin [Jardiance] 20 mg PO DAILY 12/19/23 [History] Levothyroxine Sodium 50 Mcg [Synthroid 50 Mcg] 50 mcg PO DAILY 12/19/23 [History] Lorazepam 0.5 mg [Ativan 0.5 MG] 0.5 mg PO BID 12/19/23 [History] Metformin HCl 500 mg [Glucophage 500 MG] 500 mg PO BIDWM 12/19/23 [History] Topiramate 25 mg [Topamax 25 MG] 50 mg PO DAILY 12/19/23 [History] Hx Tetanus, Diphtheria Vaccination/Date Given: Yes Hx Influenza Vaccination/Date Given: No Hx Pneumococcal Vaccination/Date Given: No Travel Risk - International Travel Have you traveled outside of the country in past 3 weeks: No - Emerging Infectious Disease Are you exhibiting symptoms associated with any current EIDs: No - Review of Systems All Other Systems: Reviewed and Negative - Past Medical History Pertinent Past Medical History: Yes Neurological History: Migraines, Peripheral Neuropathy ENT History: No Pertinent History Cardiac History: Congestive Heart Failure, High Cholesterol, Hypertension, Other Respiratory History: Asthma, Bronchitis, Pneumonia, Sleep Apnea Endocrine Medical History: Diabetes Type II, Hypothyroidism Musculoskeletal History: No Pertinent History GI Medical History: GERD History: No Pertinent History Psycho-Social History: Anxiety, Depression Female Reproductive Disorders: Fibroids Other Medical History: Cath Report 09/25/19 coronary arteries clean, leaky heart valve. ITP - Past Surgical History Past Surgical History: Yes Neuro Surgical History: No Pertinent History Cardiac: Cardiac Catheterization, Other Respiratory: No Pertinent History Gastrointestinal: No Pertinent History Genitourinary: No Pertinent History Musculoskeletal: Other Female Surgical History: No Pertinent History Other Surgical History: bunion to right foot, ablation Significant Family History: no pertinent family hx, heart disease, hypertension - Female History Hx Last Menstrual Period: last month Hx Now: No - Social History Smoking Status: Never smoker Exposure to second hand smoke: No Alcohol Use: None Drug Use: none Patient Lives Alone: No - Social Determinants of Health Will the patient participate in the screening: Yes Do you worry about a steady place to live?: No Do you have any problems with any of the following?: No known problems In the past 12 months,have you had to go without utilities?: No Transportation Issues: No Has anyone in your support network made you feel unsafe?: No Have you or anyone in your house had to go without enough: No - Nursing Vital Signs Nursing Vital Signs: Initial Vital Signs Temperature 98.5 F 12/19/23 11:10 Pulse Rate 134 H 12/19/23 11:10 Respiratory Rate 30 H 12/19/23 11:10 Blood Pressure 162/87 12/19/23 11:10 O2 Sat by Pulse Oximetry 96 12/19/23 11:10 Pain Scale Pain Intensity 7 - Physical Exam General Appearance: mild distress, obese Eye Exam: eyes nml inspection Ears, Nose, Throat Exam: hearing grossly normal Neck Exam: normal inspection, supple, full range of motion Respiratory Exam: chest tenderness, airway intact, wheezing, No respiratory distress Cardiovascular/Chest Exam: normal heart sounds, tachycardia Extremity Exam: No pedal edema, No swelling Neurologic Exam: alert, 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, cooperative Skin Exam: normal color, warm, dry SpO2 Interpretation: normal SpO2: 96 O2 Delivery: Room Air - Course Nursing assessment & vital signs reviewed: Yes EKG Interpreted by Me: RATE (103), Sinus Tach, NORMAL AXIS, NORMAL INTERVALS, Other (LVH) - CT Exams Chest CT Interpretation: Tele-radiologist Report, No PE, Pneumonia (bilateral patchy ground glass) Ordered Tests: Active Orders 24 hr Category Date Time Status Call Admit Doctor for Orders ON ADMISSION Care 12/19/23 17:13 Active Code Status Order ROUTINE Care 12/19/23 17:[address] in Observation ROUTINE Care 12/19/23 17:13 Active Telemetry q6h Care 12/19/23 17:13 Active CHEST WITH CONTRAST [CT] Stat Exams 12/19/23 13:04 Completed BLOOD CULTURE Stat Lab 12/19/23 12:15 Received CBC W DIFF Stat Lab 12/19/23 11:50 Completed CMP Stat Lab 12/19/23 11:50 Completed D-DIMER QUANTITATIVE Stat Lab 12/19/23 11:50 Completed Ferritin Stat Lab 12/19/23 11:50 Completed Lactic Acid Stat Lab 12/19/23 11:33 Completed MAGNESIUM Stat Lab 12/19/23 11:50 Completed Occult Blood-Fecal Screen (Diagnostic) [OB-FECAL SCREEN Lab 12/19/23 Ordered ] Stat TROPONIN Q4H Lab 12/19/23 11:50 Completed TROPONIN Q4H Lab 12/19/23 15:20 Completed TROPONIN Q4H Lab 12/19/23 19:45 Completed VENOUS BLOOD GAS Stat Lab 12/19/23 11:33 Completed Pulse Oximetry .continuos RT 12/19/23 17:13 Active Respiratory Therapy Assessment DAILY RT 12/19/23 11:47 Completed Respiratory Therapy Consult ONCE RT 12/19/23 17:13 Completed Transfer Order Routine Transfer 12/19/23 Completed Medication Summary Generic Name Dose Route Start Last Admin Trade Name Freq PRN Reason Stop Dose Admin Albuterol Sulfate 2 puff 12/19/23 18:19 Albuterol Common Canister Inhaler 01/18/24 18:18 Q4H PRN PRN Wheezing/Chest Congestion Albuterol/Ipratropium 3 ml 12/19/23 19:00 12/19/23 22:43 Ipratropium/Albuterol Sulfate 3 Ml Ampul.Neb IH 01/18/24 18:59 3 ml Q4HRT CAITY Administration Citalopram Hydrobromide 20 mg 12/20/23 10:00 Citalopram Hydrobromide 20 Mg Tablet PO 01/19/24 09:59 DAILY CAITY Famotidine 40 mg 12/19/23 22:00 12/19/23 21:33 Famotidine 20 Mg Tablet PO 01/18/24 21:59 40 mg BID CAITY Administration Gabapentin 400 mg 12/19/23 22:00 12/19/23 21:33 Gabapentin 400 Mg Capsule PO 01/18/24 21:59 400 mg BID CAITY Administration Ceftriaxone Sodium 1 gm in 100 mls @ 200 mls/hr 12/20/23 10:00 Rocephin 1 Gm / 100 Ml Nacl IV 01/19/24 09:59 Q24H10 CAITY Azithromycin 500 mg in 250 mls @ 250 mls/hr 12/20/23 10:00 Zithromax 500 Mg/ 250 Ml Nacl Premix IV 01/19/24 09:59 Q24H10 CAITY Insulin Glargine 60 unit 12/19/23 21:16 12/19/23 21:41 Insulin Glargine 1 Unit SQ 01/18/24 21:15 60 unit HS PRN PRN Administration HYPERGLYCEMIA Insulin Human Lispro 0 unit 12/19/23 17:34 12/19/23 21:41 Insulin Lispro 1 Unit SQ 01/18/24 17:33 15 unit UD PRN Administration HYPERGLYCEMIA Levothyroxine Sodium 50 mcg 12/20/23 10:00 Levothyroxine Sodium 50 Mcg Tablet PO 01/19/24 09:59 DAILY CAITY Lorazepam 0.5 mg 12/19/23 22:00 12/19/23 21:33 Lorazepam 0.5 Mg Tablet PO 01/18/24 21:59 0.5 mg BID CAITY Administration Morphine Sulfate 2 mg 12/19/23 18:10 12/19/23 19:47 Morphine Sulfate 2 Mg/Ml Inj IV 12/24/23 18:09 2 mg Q4H PRN PRN Administration PAIN Non-Formulary Medication 120 mg 12/20/23 10:00 Diltiazem Hcl PO 01/19/24 09:59 DAILY CAITY Prochlorperazine Edisylate 10 mg 12/19/23 18:14 Prochlorperazine Edisylate 10 Mg/2 Ml Vial IM 01/18/24 18:13 Q6H PRN PRN NAUSEA/VOMITING Rivaroxaban 20 mg 12/20/23 10:00 Rivaroxaban 10 Mg Tablet PO 01/19/24 09:59 DAILY CAITY Fluticasone/Salmeterol 1 each 12/19/23 19:00 12/19/23 22:56 Fluticasone/Salmeterol 500/50* 1 Each Inh IH 01/18/24 18:59 Not Given BIDRT CAITY Simvastatin 40 mg 12/19/23 22:00 12/19/23 21:33 Simvastatin 20 Mg Tablet PO 01/18/24 21:59 40 mg HS CAITY Administration Topiramate 50 mg 12/20/23 10:00 Topiramate 50 Mg Tablet PO 01/19/24 09:59 DAILY CAITY Discontinued Medications Generic Name Dose Route Start Last Admin Trade Name Paxton PRN Reason Stop Dose Admin Acetaminophen 975 mg 12/19/23 11:57 12/19/23 12:31 Acetaminophen 325 Mg Tablet PO 12/19/23 11:58 975 mg STAT STA Administration Acetaminophen Confirm 12/19/23 12:29 Acetaminophen 325 Mg Tablet Administered 12/19/23 12:30 Dose 975 mg .ROUTE .STK-MED ONE Albuterol/Ipratropium 3 ml 12/19/23 11:33 12/19/23 11:47 Ipratropium/Albuterol Sulfate 3 Ml Ampul.Neb IH 12/19/23 11:34 3 ml STAT ONE Administration Albuterol/Ipratropium Confirm 12/19/23 11:49 Ipratropium/Albuterol Sulfate 3 Ml Ampul.Neb Administered 12/19/23 11:50 Dose 3 ml IH .STK-MED ONE Atorvastatin Calcium 40 mg 12/19/23 22:00 Atorvastatin Calcium 40 Mg Tablet PO 01/18/24 21:59 HS CAITY Methylprednisolone Sodium 0 mg 12/19/23 11:33 12/19/23 11:45 Succinate 125 mg/ Sterile IV 12/19/23 11:34 125 mg Water 2 ml STAT ONE Administration Sodium Chloride 1,000 mls @ 999 mls/hr 12/19/23 11:33 12/19/23 12:58 Sodium Chloride 0.9% 1000 Ml IV 12/19/23 12:33 Infused .Q1H1M STA Infusion Azithromycin 500 mg in 250 mls @ 250 mls/hr 12/19/23 11:33 12/19/23 13:51 Zithromax 500 Mg/ 250 Ml Nacl Premix IV 12/19/23 12:32 Infused STAT STA Infusion Levofloxacin/Dextrose 750 mg in 150 mls @ 100 mls/hr 12/19/23 11:33 12/19/23 15:40 Levofloxacin 750mg/150ml D5w IV 12/19/23 13:02 Infused STAT STA Infusion Sodium Chloride Confirm 12/19/23 11:44 Sodium Chloride 0.9% 1000 Ml Administered 12/19/23 11:45 Dose 1,000 mls @ ud .ROUTE .STK-MED ONE Azithromycin Confirm 12/19/23 12:28 Zithromax 500 Mg/ 250 Ml Nacl Premix Administered 12/19/23 12:29 Dose 500 mg in 250 mls @ ud IV .STK-MED ONE Levofloxacin/Dextrose Confirm 12/19/23 14:03 Levofloxacin 750mg/150ml D5w Administered 12/19/23 14:04 Dose 750 mg in 150 mls @ ud IV .STK-MED ONE Sodium Chloride 1,000 mls @ 999 mls/hr 12/19/23 15:47 12/19/23 16:27 Sodium Chloride 0.9% 1000 Ml IV 12/19/23 16:47 999 mls/hr .Q1H1M STA Administration Sodium Chloride Confirm 12/19/23 16:25 Sodium Chloride 0.9% 1000 Ml Administered 12/19/23 16:26 Dose 1,000 mls @ ud .ROUTE .STK-MED ONE Levothyroxine Sodium 75 mcg 12/20/23 10:00 Levothyroxine Sodium 75 Mcg Tablet PO 01/19/24 09:59 DAILY CAITY Methylprednisolone Sodium Succinate Confirm 12/19/23 11:44 Methylprednis Sod Succ 125 Mg/2 Ml Vial Administered 12/19/23 11:45 Dose 125 mg .ROUTE .STK-MED ONE Non-Formulary Medication 40 mg 12/20/23 10:00 Famotidine [Famotidine] PO 01/19/24 09:59 DAILY [facility] Non-Formulary Medication 60 unit 12/19/23 18:19 Insulin Detemir [Levemir] SQ HS PRN PRN diabetes Sterile Water Confirm 12/19/23 11:44 Water For Injection,Sterile 10 Ml Vial Administered 12/19/23 11:45 Dose 10 ml IJ .STK-MED ONE Tramadol HCl 50 mg 12/19/23 15:26 12/19/23 15:35 Tramadol Hcl 50 Mg Tablet PO 12/19/23 15:27 50 mg STAT ONE Administration Tramadol HCl Confirm 12/19/23 15:33 Tramadol Hcl 50 Mg Tablet Administered 12/19/23 15:34 Dose 50 mg .ROUTE .STK-MED ONE Lab/Rad Data: Laboratory Result Diagrams 12/19/23 11:50 12/19/23 11:50 Laboratory Results 12/19/23 12/19/23 12/19/23 Range/Units 15:20 12:00 11:50 WBC (3.98-10.04) x10^3/uL RBC (3.93-5.22) x10^6/uL Hgb (11.2-15.7) g/dL Hct (34.1-44.9) % MCV (79.4-94.8) fL MCH (25.6-32.2) pg MCHC (32.2-35.5) g/dL RDW (11.7-14.4) % Plt Count (182-369) x10^3/uL MPV (9.4-12.3) fL Gran % (34.0-71.1) % Immature Gran % (Auto) (0.001-0.429) % Nucleat RBC Rel Count (0.00-0.2) % Eos # (Auto) (0.04-0.36) x10^3/uL Immature Gran # (Auto) (0.001-0.031) x10^3u/L Absolute Lymphs (auto) (1.18-3.74) x10^3/uL Absolute Monos (auto) (0.24-0.86) x10^3/uL Absolute Nucleated RBC (0.00-0.012) x10^3u/L Lymphocytes % (19.3-51.7) % Monocytes % (4.7-12.5) % Eosinophils % (0.7-5.8) % Basophils % (0.1-1.2) % Absolute Granulocytes (1.56-6.13) x10^3/uL Basophils # (0.01-0.08) x10^3/uL D-Dimer (0.0-0.50) mg/L pO2/FiO2 Ratio % VBG pH (7.32-7.42) VBG pCO2 at Pat Temp (42-55) mm/Hg VBG pO2 at Pat Temp (25-40) mm/Hg VBG HCO3 (22-28) meq/L VBG O2 Sat (Stephie) (95-100) VBG Base Excess (-2.0-2.0) VBG Hemoglobin VBG Carboxyhemoglobin (0.0-6.9) % T HGB POC Potassium (3.5-5.1) Sodium (135-145) mmol/L Potassium (3.5-5.1) mmol/L Chloride (98-107) mmol/L Carbon Dioxide (22-30) mmol/L Anion Gap (5-15) MEQ/L BUN (7-17) mg/dL Creatinine (0.52-1.04) mg/dL Estimated GFR ML/MIN Glucose (74-106) mg/dL Hemoglobin A1c (4.5-6.0) % Lactic Acid (0.4-2.0) Calcium (8.4-10.2) mg/dL Magnesium (1.6-2.3) mg/dL Iron 30 L (37-170) ug/dL TIBC 378 (265-462) ug/dL Iron Saturation 8 L (20-39) % Ferritin (6.24-137) ng/mL Total Bilirubin (0.2-1.3) mg/dL AST (14-36) U/L ALT (0-35) U/L Alkaline Phosphatase (38-126) U/L Troponin I < 0.012 (0.000-0.033) ng/mL NT-Pro-B Natriuret Pep (<300) pg/mL Serum Total Protein (6.3-8.2) g/dL Albumin (3.5-5.0) g/dL Influenza Type A Ag NEGATIVE (NEGATIVE) Influenza Type B Ag NEGATIVE (NEGATIVE) RSV (PCR) NEGATIVE (NEGATIVE) SARS-CoV-2 (PCR) NEGATIVE (NEGATIVE) 12/19/23 12/19/23 12/19/23 Range/Units 11:50 11:50 11:50 WBC (3.98-10.04) x10^3/uL RBC (3.93-5.22) x10^6/uL Hgb (11.2-15.7) g/dL Hct (34.1-44.9) % MCV (79.4-94.8) fL MCH (25.6-32.2) pg MCHC (32.2-35.5) g/dL RDW (11.7-14.4) % Plt Count (182-369) x10^3/uL MPV (9.4-12.3) fL Gran % (34.0-71.1) % Immature Gran % (Auto) (0.001-0.429) % Nucleat RBC Rel Count (0.00-0.2) % Eos # (Auto) (0.04-0.36) x10^3/uL Immature Gran # (Auto) (0.001-0.031) x10^3u/L Absolute Lymphs (auto) (1.18-3.74) x10^3/uL Absolute Monos (auto) (0.24-0.86) x10^3/uL Absolute Nucleated RBC (0.00-0.012) x10^3u/L Lymphocytes % (19.3-51.7) % Monocytes % (4.7-12.5) % Eosinophils % (0.7-5.8) % Basophils % (0.1-1.2) % Absolute Granulocytes (1.56-6.13) x10^3/uL Basophils # (0.01-0.08) x10^3/uL D-Dimer 0.71 H* (0.0-0.50) mg/L pO2/FiO2 Ratio % VBG pH (7.32-7.42) VBG pCO2 at Pat Temp (42-55) mm/Hg VBG pO2 at Pat Temp (25-40) mm/Hg VBG HCO3 (22-28) meq/L VBG O2 Sat (Stephie) (95-100) VBG Base Excess (-2.0-2.0) VBG Hemoglobin VBG Carboxyhemoglobin (0.0-6.9) % T HGB POC Potassium (3.5-5.1) Sodium (135-145) mmol/L Potassium (3.5-5.1) mmol/L Chloride (98-107) mmol/L Carbon Dioxide (22-30) mmol/L Anion Gap (5-15) MEQ/L BUN (7-17) mg/dL Creatinine (0.52-1.04) mg/dL Estimated GFR ML/MIN Glucose (74-106) mg/dL Hemoglobin A1c (4.5-6.0) % Lactic Acid (0.4-2.0) Calcium (8.4-10.2) mg/dL Magnesium (1.6-2.3) mg/dL Iron (37-170) ug/dL TIBC (265-462) ug/dL Iron Saturation (20-39) % Ferritin 20.4 (6.24-137) ng/mL Total Bilirubin (0.2-1.3) mg/dL AST (14-36) U/L ALT (0-35) U/L Alkaline Phosphatase (38-126) U/L Troponin I 0.014 (0.000-0.033) ng/mL NT-Pro-B Natriuret Pep (<300) pg/mL Serum Total Protein (6.3-8.2) g/dL Albumin (3.5-5.0) g/dL Influenza Type A Ag (NEGATIVE) Influenza Type B Ag (NEGATIVE) RSV (PCR) (NEGATIVE) SARS-CoV-2 (PCR) (NEGATIVE) 12/19/23 12/19/23 12/19/23 Range/Units 11:50 11:50 11:33 WBC 9.3 (3.98-10.04) x10^3/uL RBC 3.97 (3.93-5.22) x10^6/uL Hgb 8.5 L (11.2-15.7) g/dL Hct 29.0 L (34.1-44.9) % MCV 73.0 L (79.4-94.8) fL MCH 21.4 L (25.6-32.2) pg MCHC 29.3 L (32.2-35.5) g/dL RDW 16.6 H (11.7-14.4) % Plt Count 344 (182-369) x10^3/uL MPV 10.1 (9.4-12.3) fL Gran % 73.1 H (34.0-71.1) % Immature Gran % (Auto) 1.2 H (0.001-0.429) % Nucleat RBC Rel Count 0.0 (0.00-0.2) % Eos # (Auto) 0.15 (0.04-0.36) x10^3/uL Immature Gran # (Auto) 0.11 H (0.001-0.031) x10^3u/L Absolute Lymphs (auto) 1.65 (1.18-3.74) x10^3/uL Absolute Monos (auto) 0.56 (0.24-0.86) x10^3/uL Absolute Nucleated RBC 0.00 (0.00-0.012) x10^3u/L Lymphocytes % 17.7 L (19.3-51.7) % Monocytes % 6.0 (4.7-12.5) % Eosinophils % 1.6 (0.7-5.8) % Basophils % 0.4 (0.1-1.2) % Absolute Granulocytes 6.80 H (1.56-6.13) x10^3/uL Basophils # 0.04 (0.01-0.08) x10^3/uL D-Dimer (0.0-0.50) mg/L pO2/FiO2 Ratio % VBG pH (7.32-7.42) VBG pCO2 at Pat Temp (42-55) mm/Hg VBG pO2 at Pat Temp (25-40) mm/Hg VBG HCO3 (22-28) meq/L VBG O2 Sat (Stephie) (95-100) VBG Base Excess (-2.0-2.0) VBG Hemoglobin VBG Carboxyhemoglobin (0.0-6.9) % T HGB POC Potassium (3.5-5.1) Sodium 139 (135-145) mmol/L Potassium 4.0 (3.5-5.1) mmol/L Chloride 101 (98-107) mmol/L Carbon Dioxide 29 (22-30) mmol/L Anion Gap 13.3 (5-15) MEQ/L BUN 16 (7-17) mg/dL Creatinine 0.66 (0.52-1.04) mg/dL Estimated GFR 110.9 ML/MIN Glucose 260 H (74-106) mg/dL Hemoglobin A1c (4.5-6.0) % Lactic Acid (0.4-2.0) Calcium 9.8 (8.4-10.2) mg/dL Magnesium 1.6 (1.6-2.3) mg/dL Iron (37-170) ug/dL TIBC (265-462) ug/dL Iron Saturation (20-39) % Ferritin (6.24-137) ng/mL Total Bilirubin 0.60 (0.2-1.3) mg/dL AST 25 (14-36) U/L ALT 44 H (0-35) U/L Alkaline Phosphatase 136 H (38-126) U/L Troponin I (0.000-0.033) ng/mL NT-Pro-B Natriuret Pep 2870 (<300) pg/mL Serum Total Protein 7.1 (6.3-8.2) g/dL Albumin 3.8 (3.5-5.0) g/dL Influenza Type A Ag (NEGATIVE) Influenza Type B Ag (NEGATIVE) RSV (PCR) (NEGATIVE) SARS-CoV-2 (PCR) (NEGATIVE) 12/19/23 12/19/23 Range/Units 11:33 11:33 WBC (3.98-10.04) x10^3/uL RBC (3.93-5.22) x10^6/uL Hgb (11.2-15.7) g/dL Hct (34.1-44.9) % MCV (79.4-94.8) fL MCH (25.6-32.2) pg MCHC (32.2-35.5) g/dL RDW (11.7-14.4) % Plt Count (182-369) x10^3/uL MPV (9.4-12.3) fL Gran % (34.0-71.1) % Immature Gran % (Auto) (0.001-0.429) % Nucleat RBC Rel Count (0.00-0.2) % Eos # (Auto) (0.04-0.36) x10^3/uL Immature Gran # (Auto) (0.001-0.031) x10^3u/L Absolute Lymphs (auto) (1.18-3.74) x10^3/uL Absolute Monos (auto) (0.24-0.86) x10^3/uL Absolute Nucleated RBC (0.00-0.012) x10^3u/L Lymphocytes % (19.3-51.7) % Monocytes % (4.7-12.5) % Eosinophils % (0.7-5.8) % Basophils % (0.1-1.2) % Absolute Granulocytes (1.56-6.13) x10^3/uL Basophils # (0.01-0.08) x10^3/uL D-Dimer (0.0-0.50) mg/L pO2/FiO2 Ratio 21.0 % VBG pH 7.43 H (7.32-7.42) VBG pCO2 at Pat Temp 45 (42-55) mm/Hg VBG pO2 at Pat Temp 30 (25-40) mm/Hg VBG HCO3 29.9 H* (22-28) meq/L VBG O2 Sat (Stephie) 49.0 L (95-100) VBG Base Excess 5.0 H (-2.0-2.0) VBG Hemoglobin 9.1 VBG Carboxyhemoglobin 3.2 (0.0-6.9) % T HGB POC Potassium 4.2 (3.5-5.1) Sodium (135-145) mmol/L Potassium (3.5-5.1) mmol/L Chloride (98-107) mmol/L Carbon Dioxide (22-30) mmol/L Anion Gap (5-15) MEQ/L BUN (7-17) mg/dL Creatinine (0.52-1.04) mg/dL Estimated GFR ML/MIN Glucose (74-106) mg/dL Hemoglobin A1c 9.30 H (4.5-6.0) % Lactic Acid 1.3 (0.4-2.0) Calcium (8.4-10.2) mg/dL Magnesium (1.6-2.3) mg/dL Iron (37-170) ug/dL TIBC (265-462) ug/dL Iron Saturation (20-39) % Ferritin (6.24-137) ng/mL Total Bilirubin (0.2-1.3) mg/dL AST (14-36) U/L ALT (0-35) U/L Alkaline Phosphatase (38-126) U/L Troponin I (0.000-0.033) ng/mL NT-Pro-B Natriuret Pep (<300) pg/mL Serum Total Protein (6.3-8.2) g/dL Albumin (3.5-5.0) g/dL Influenza Type A Ag (NEGATIVE) Influenza Type B Ag (NEGATIVE) RSV (PCR) (NEGATIVE) SARS-CoV-2 (PCR) (NEGATIVE) - Progress Progress: improved Air Movement: good Progress Note: D-dimer came back elevated at 0.71. Will proceed with CTA chest to rule out PE at this time. Patient does feel like her breathing has improved after nebs, steroids and antibiotics. 12/19/23 13:06 12/19/23 15:50 CTA negative for PE demonstrates bilateral patchy groundglass opacities with small pleural effusion. Patient continues to feel short of breath and is wheezing. Her oxygen saturation has remained in the mid 90s but does desaturate with ambulation. Her hemoglobin was also found to be 8.5 which is lower than her baseline which could also be a confounding factor with her shortness of breath as well. I recommended discussion with hospitalist for admission and she is agreeable. 12/19/23 16:26 Dr. Hawthorne accepts admission at 1626. Blood Culture(s) Obtained: Yes Antibiotics given: Yes Counseled pt/family regarding: lab results, diagnosis, need for follow-up, rad results Medical Desision Making - Discussion of managment Care discussed with:: hospitalist Agreed on:: place in obs Will see patient: in hospital - Diagnostic Testing Diagnostic test were ordered, analyzed, and reviewed by me: Yes Radiological Interpretation: Interpreted by me, Reviewed by me, Teleradiologist Report - Risk of complications The pt has a mod risk of morbidity or mortality based on: Need for prescription drug management The pt has a high risk of morbidity or mortality based on: Decision regarding hospitilization or escalation of hosp level of care - Departure Departure Disposition: Observation Clinical Impression: SOB (shortness of breath), COPD (chronic obstructive pulmonary disease), COPD with exacerbation, Wheezing, Anemia, Paroxysmal A-fib, Type 2 diabetes mellitus with hyperglycemia, without long-term current use of insulin, Atypical pneumonia, Failure of outpatient treatment Condition: Stable Critical Care Time: No
[2023-12-19] MEDS ORDERED: solu-MEDROL ONE (11:44)
[2023-12-19] MEDS ORDERED: Sterile H2O 10 ml IJ ONE (11:44)
[2023-12-19] MEDS ORDERED: Sodium Chloride 0.9% 1000 ML 1,000 ML ONE ×2 (11:44→16:25)
[2023-12-19 11:45] LABS: Lactic Acid 1.3 (0.4-2.0); VBG CARBOXYHEMOGLOBIN 3.2 % T HGB (0.0-6.9); VBG HCO3- 29.9 meq/L (22-28); VBG HEMOGLOBIN 9.1; VBG POTASSIUM 4.2 (3.5-5.1); VBG pH 7.43 (7.32-7.42)
[2023-12-19] MEDS: Sodium Chloride 0.9% 1000 ML 1,000 ML IV STA ×2 (11:45→16:27)
[2023-12-19] MEDS: solu-MEDROL 125 MG, Sterile H2O 10 ml 2 ML IV ONE (11:45)
[2023-12-19] MEDS: DUONEB 0.5-3 MG/3 ml Neb IH ONE (11:47)
[2023-12-19] MEDS ORDERED: DUONEB 0.5-3 MG/3 ml Neb IH ONE (11:49)
[2023-12-19] MEDS ORDERED: Zithromax 500 MG/ 250 ML NaCl Premix 500 MG/250 ML IVPB IV ONE (12:28)
[2023-12-19 12:29] LABS: BASOPHIL % 0.4 % (0.1-1.2); Basophil (Absolute #) 0.04 x10^3/uL (0.01-0.08); Eosinophil % 1.6 % (0.7-5.8); Eosinophil (Absolute #) 0.15 x10^3/uL (0.04-0.36); Hemoglobin 8.5 g/dL (11.2-15.7); IMMATURE GRAN # 0.11 x10^3u/L (0.001-0.031); IMMATURE GRAN % 1.2 % (0.001-0.429); Lymphocyte (Absolute #) 1.65 x10^3/uL (1.18-3.74); Lymphocytes % 17.7 % (19.3-51.7); Mean Corpuscular Hemoglobin 21.4 pg (25.6-32.2); Mean Corpuscular Hgb Concent. 29.3 g/dL (32.2-35.5); Mean Platelet Volume 10.1 fL (9.4-12.3); Monocyte (Absolute #) 0.56 x10^3/uL (0.24-0.86); Neutrophil % 73.1 % (34.0-71.1); Platelet Count 344 x10^3/uL (182-369); Red Blood Count 3.97 x10^6/uL (3.93-5.22); Red Cell Distribution Width 16.6 % (11.7-14.4); White Blood Count 9.3 x10^3/uL (3.98-10.04)
[2023-12-19] MEDS ORDERED: TYLENOL 325 MG ONE (12:29)
[2023-12-19] MEDS: TYLENOL 325 MG PO STA (12:31)
[2023-12-19] MEDS: Zithromax 500 MG/ 250 ML NaCl Premix 500 MG/250 ML IVPB IV STA (12:32)
[2023-12-19 12:44] LABS: ALBUMIN 3.8 g/dL (3.5-5.0); ANION GAP 13.3 MEQ/L (5-15); BILIRUBIN,TOTAL 0.6 mg/dL (0.2-1.3); Calcium 9.8 mg/dL (8.4-10.2); Creatinine 1 0.66 mg/dL (0.52-1.04); EST GLOMERULAR FILTRATION RATE 110.9 ML/MIN; MAGNESIUM 1.6 mg/dL (1.6-2.3); Total Protein 7.1 g/dL (6.3-8.2)
[2023-12-19 13:02] LABS: INFLUENZA A NEGATIVE (NEGATIVE); INFLUENZA B NEGATIVE (NEGATIVE); RESPIRATORY SYNCTIAL VIRUS NEGATIVE (NEGATIVE); SARS-CoV-2 Xpert Express NEGATIVE (NEGATIVE)
[2023-12-19] MEDS ORDERED: LEVOFLOXACIN 750MG/150ML D5W 750 MG/150 ML BAG IV ONE (14:03)
[2023-12-19] MEDS: LEVOFLOXACIN 750MG/150ML D5W 750 MG/150 ML BAG IV STA (14:05)
--- NOTE | 2023-12-19 14:15 | XRAY ---
Indication: Short of breath. Chest pain. Elevated d-dimer. Multiple contiguous axial images obtained through the chest using 80 cc Isovue 370 contrast and PE protocol. Comparison: May 16, 2023 Adequate opacification of the pulmonary arteries to include the lobar and segmental branches. Respiration artifact and patient body habitus limits evaluation of the more distal lobar and segmental branches. No obvious pulmonary embolus. Heart again enlarged. Aorta is normal in course and caliber. No pathologic mediastinal/hilar lymphadenopathy. Lungs again demonstrates diffuse patchy groundglass airspace disease, right greater than left. Tiny right effusion. No consolidation. Bony thorax intact again with minimal degenerative changes throughout the spine. Limited upper abdomen again demonstrates fatty liver. Impression: 1. Pulmonary embolus evaluation limited by respiration artifact and patient body habitus. Again no obvious pulmonary embolus. 2. Again diffuse bilateral patchy groundglass airspace disease with tiny right effusion. 3. Chronic cardiomegaly and fatty liver.
[2023-12-19 14:24] LABS: Iron 30 ug/dL (37-170); Iron Saturation 8 % (20-39); TIBC 378 ug/dL (265-462)
[2023-12-19] MEDS ORDERED: ULTRAM 50 MG ONE (15:33)
[2023-12-19] MEDS: ULTRAM 50 MG PO ONE (15:35)
--- NOTE | 2023-12-19 17:30 | PCM.HP ---
History of Present Illness - Chief Complaint Chief Complaint: SOB, COPD, pneumonia Date: 12/19/23 History of Present Illness: is a 43 year old female with PMHX of COPD, asthma, AFib, migraines, peripheral neuropathy, CHF, hyperlipidemia, HTN, Chronic bronchitis, apleep apnea, morbid obesity, TYpe II Dm, hypothyroidism, GERD, anxiety, depression, fibroids, iron def. anemia, and ITP ( follows Dr. Enriquez- hematology). She presents with a persistent cough and shortness of breath for over a month. She initially sought care at a [facility] where she was prescribed antibiotics and steroids, but her symptoms did not improve. She again went to [facility] and was referred to ER as SOB worsened with exertion starting Tuesday. She reports a cough with yellow production and associated with chest pain, headaches, and nausea. She also reports feeling like she's going to pass out when walking from one room to another as she gets so SOB. She admits to orthopnea. She has been using an albuterol inhaler every four to six hours and albuterol breathing treatments, but these have not been helpful. She denies any swelling in her legs and reports no fevers, but does experience hot and cold flashes. She does feel swollen all over however. She was recently tested for strep throat and COVID-19, both of which were negative. She is also on a daily inhaler for her COPD, the name of which she cannot recall, but it is a red inhaler. She denies smoking. She reports she has not had her A1C checked in over a year and admits to not f/u on this. She was giving tylenol in ER which helped her H/A but not chest discomfort from pneumoina. She was also given tramadol in ER and reports this was not helpful. She is currently RA 95% O2. Anemia panel done in ER shows iron def anemia. She does have a hx of this but reports she has not been on iron for quite some time. She denies dark or tarry stools. She Follows hematology already. Will restart ferrous sulfate. D-Dimer 0.[address] negative for PE but + for pneumonia. Will continue IV antibiotics and breathing txs. Since pt has a hx of CHF will order Echo and BNP. Trop x2 negative. She denies abd. pain V/D. - Review of Systems Constitutional: No Fever, No Chills Eyes: No Symptoms Ears, Nose, & Throat: No Symptoms Respiratory: Cough, Short Of Breath Cardiac: Chest Pain, No Edema, No Syncope Abdominal/Gastrointestinal: Nausea, No Abdominal Pain, No Vomiting, No Diarrhea Genitourinary Symptoms: No Dysuria Musculoskeletal: No Back Pain, No Neck Pain Skin: No Rash Neurological: No Dizziness, No Focal Weakness, No Sensory Changes Psychological: No Symptoms Endocrine: No Symptoms Hematologic/Lymphatic: No Symptoms Immunological/Allergic: No Symptoms Medications & Allergies Home Medications: Home Medication List Famotidine 40 mg PO DAILY 03/09/16 [History Confirmed 12/19/23] Levothyroxine Sodium 75 Mcg [Synthroid 75 Mcg] 75 mcg PO DAILY 11/04/16 [History Confirmed 12/19/23] Rivaroxaban 10 mg Tablet [Xarelto 10 mg Tablet] 20 mg PO DAILY 08/28/17 [History Confirmed 12/19/23] Gabapentin [Neurontin ] 400 mg PO BID 12/07/18 [History Confirmed 12/19/23] Albuterol/Ipratropium 3ml Neb* [DUONEB 0.5-3 MG/3 ml Neb] 3 ml NEBULIZE Q4H PRN PRN #1 box 04/25/19 [Rx Confirmed 12/19/23] Atorvastatin Calcium 40 mg PO HS 11/14/21 [History Confirmed 12/19/23] Insulin Detemir [Levemir] 60 unit SQ HS PRN PRN 11/14/21 [History Confirmed 12/19/23] dilTIAZem HCL [Diltiazem 24Hr ER (Cd)] 120 mg PO DAILY 11/14/21 [History Confirmed 12/19/23] Albuterol Sulfate [Proair Hfa] 2 puff IH Q4H PRN PRN 11/15/21 [History Confirmed 12/19/23] Citalopram Hydrobromide 20 mg* [ceLEXa 20 MG] 20 mg PO DAILY #0 11/19/21 [Rx Confirmed 12/19/23] Allergies/Adverse Reactions: Allergies Allergy/AdvReac Type Severity Reaction Status Date / Time Sulfa (Sulfonamide Allergy Mild Rash Verified 07/01/24 17:25 Antibiotics) [Sulfa(Sulfonamide Antibiotics)] - Past Medical History Past Medical History: Yes Neurological History: Migraines, Peripheral Neuropathy ENT History: No Pertinent History Cardiac History: Congestive Heart Failure, High Cholesterol, Hypertension, Other Respiratory History: Asthma, Bronchitis, Pneumonia, Sleep Apnea Endocrine Medical History: Diabetes Type II, Hypothyroidism Musculoskelatal History: No Pertinent History GI Medical History: GERD History: No Pertinent History Pyscho-Social History: Anxiety, Depression Reproductive Disorders: Fibroids Comment: Cath Report 09/25/19 coronary arteries clean, leaky heart valve. ITP - Female History Hx Last Menstrual Period: last month Are you now?: No - Past Surgical History Past Surgical History: Yes Neuro Surgical History: No Pertinent History Cardiac History: Cardiac Catheterization, Other Respiratory Surgery: No Pertinent History GI Surgical History: No Pertinent History Genitourinary Surgical Hx: No Pertinent History Musculskeletal Surgical Hx: Other Female Surgical History: No Pertinent History Other Surgical History: bunion to right foot, ablation Significant Family History: no pertinent family hx, heart disease, hypertension - Social History Smoking Status: Never smoker Exposure to second hand smoke: No Alcohol: None Drug Use: none - Social Determinants of Health Will the patient participate in the screening: Yes Do you worry about a steady place to live?: No Do you have any problems with any of the following?: No known problems In the past 12 months,have you had to go without utilities?: No Have you or anyone in your house had to go without enough: No Transportation Issues: No Has anyone in your support network made you feel unsafe?: No - Physical Exam Vital Signs: Vital Signs - 24 hr Temp Pulse Resp BP BP Pulse Ox 12/19/23 16:54 101 H 17 135/81 95 12/19/23 16:27 96 12/19/23 13:15 93 H 26 H 142/84 94 L 12/19/23 13:00 94 H 25 H 138/84 96 12/19/23 12:46 98 H 19 125/84 95 12/19/23 12:31 96 H 18 146/83 96 12/19/23 12:30 88 14 97 12/19/23 12:20 95 H 26 H 96 12/19/23 12:18 90 22 95 12/19/23 12:02 90 21 146/87 96 12/19/23 12:00 91 H 21 139/89 96 07/01/24 11:10 98.5 F 134 H 30 H 162/87 96 General Appearance: no apparent distress, alert, obese Neurologic Exam: alert, 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, cooperative, normal mood/affect, nml cerebellar function, nml station & gait, sensation nml, No motor deficits Eye Exam: PERRL/EOMI, eyes nml inspection Ears, Nose, Throat Exam: normal ENT inspection, TMs normal, pharynx normal, moist mucous membranes Neck Exam: normal inspection, non-tender, supple, full range of motion Respiratory Exam: normal breath sounds, lungs clear, diminished breath sounds (BLLL), No respiratory distress Cardiovascular Exam: regular rate/rhythm, normal heart sounds, normal peripheral pulses Gastrointestinal/Abdomen Exam: soft, normal bowel sounds, No tenderness, No mass Back Exam: normal inspection, normal range of motion, No CVA tenderness, No vertebral tenderness Extremity Exam: normal inspection, normal range of motion, pelvis stable Skin Exam: normal color, warm, dry, No rash Lymphatic Exam: No adenopathy Results - Labs Lab/Micro Results: Lab Results-Last 24 Hours 12/19/23 12/19/23 12/19/23 Range/Units 11:33 11:50 11:50 WBC 9.3 (3.98-10.04) x10^3/uL RBC 3.97 (3.93-5.22) x10^6/uL Hgb 8.5 L (11.2-15.7) g/dL Hct 29.0 L (34.1-44.9) % MCV 73.0 L (79.4-94.8) fL MCH 21.4 L (25.6-32.2) pg MCHC 29.3 L (32.2-35.5) g/dL RDW 16.6 H (11.7-14.4) % Plt Count 344 (182-369) x10^3/uL MPV 10.1 (9.4-12.3) fL Gran % 73.1 H (34.0-71.1) % Immature Gran % (Auto) 1.2 H (0.001-0.429) % Nucleat RBC Rel Count 0.0 (0.00-0.2) % Eos # (Auto) 0.15 (0.04-0.36) x10^3/uL Immature Gran # (Auto) 0.11 H (0.001-0.031) x10^3u/L Absolute Lymphs (auto) 1.65 (1.18-3.74) x10^3/uL Absolute Monos (auto) 0.56 (0.24-0.86) x10^3/uL Absolute Nucleated RBC 0.00 (0.00-0.012) x10^3u/L Lymphocytes % 17.7 L (19.3-51.7) % Monocytes % 6.0 (4.7-12.5) % Eosinophils % 1.6 (0.7-5.8) % Basophils % 0.4 (0.1-1.2) % Absolute Granulocytes 6.80 H (1.56-6.13) x10^3/uL Basophils # 0.04 (0.01-0.08) x10^3/uL D-Dimer (0.0-0.50) mg/L pO2/FiO2 Ratio 21.0 % VBG pH 7.43 H (7.32-7.42) VBG pCO2 at Pat Temp 45 (42-55) mm/Hg VBG pO2 at Pat Temp 30 (25-40) mm/Hg VBG HCO3 29.9 H* (22-28) meq/L VBG O2 Sat (Stephie) 49.0 L (95-100) VBG Base Excess 5.0 H (-2.0-2.0) VBG Hemoglobin 9.1 VBG Carboxyhemoglobin 3.2 (0.0-6.9) % T HGB POC Potassium 4.2 (3.5-5.1) Sodium 139 (135-145) mmol/L Potassium 4.0 (3.5-5.1) mmol/L Chloride 101 (98-107) mmol/L Carbon Dioxide 29 (22-30) mmol/L Anion Gap 13.3 (5-15) MEQ/L BUN 16 (7-17) mg/dL Creatinine 0.66 (0.52-1.04) mg/dL Estimated GFR 110.9 ML/MIN Glucose 260 H (74-106) mg/dL Lactic Acid 1.3 (0.4-2.0) Calcium 9.8 (8.4-10.2) mg/dL Magnesium 1.6 (1.6-2.3) mg/dL Iron (37-170) ug/dL TIBC (265-462) ug/dL Iron Saturation (20-39) % Ferritin (6.24-137) ng/mL Total Bilirubin 0.60 (0.2-1.3) mg/dL AST 25 (14-36) U/L ALT 44 H (0-35) U/L Alkaline Phosphatase 136 H (38-126) U/L Troponin I (0.000-0.033) ng/mL Serum Total Protein 7.1 (6.3-8.2) g/dL Albumin 3.8 (3.5-5.0) g/dL Influenza Type A Ag (NEGATIVE) Influenza Type B Ag (NEGATIVE) RSV (PCR) (NEGATIVE) SARS-CoV-2 (PCR) (NEGATIVE) 12/19/23 12/19/23 12/19/23 Range/Units 11:50 11:50 11:50 WBC (3.98-10.04) x10^3/uL RBC (3.93-5.22) x10^6/uL Hgb (11.2-15.7) g/dL Hct (34.1-44.9) % MCV (79.4-94.8) fL MCH (25.6-32.2) pg MCHC (32.2-35.5) g/dL RDW (11.7-14.4) % Plt Count (182-369) x10^3/uL MPV (9.4-12.3) fL Gran % (34.0-71.1) % Immature Gran % (Auto) (0.001-0.429) % Nucleat RBC Rel Count (0.00-0.2) % Eos # (Auto) (0.04-0.36) x10^3/uL Immature Gran # (Auto) (0.001-0.031) x10^3u/L Absolute Lymphs (auto) (1.18-3.74) x10^3/uL Absolute Monos (auto) (0.24-0.86) x10^3/uL Absolute Nucleated RBC (0.00-0.012) x10^3u/L Lymphocytes % (19.3-51.7) % Monocytes % (4.7-12.5) % Eosinophils % (0.7-5.8) % Basophils % (0.1-1.2) % Absolute Granulocytes (1.56-6.13) x10^3/uL Basophils # (0.01-0.08) x10^3/uL D-Dimer 0.71 H* (0.0-0.50) mg/L pO2/FiO2 Ratio % VBG pH (7.32-7.42) VBG pCO2 at Pat Temp (42-55) mm/Hg VBG pO2 at Pat Temp (25-40) mm/Hg VBG HCO3 (22-28) meq/L VBG O2 Sat (Stephie) (95-100) VBG Base Excess (-2.0-2.0) VBG Hemoglobin VBG Carboxyhemoglobin (0.0-6.9) % T HGB POC Potassium (3.5-5.1) Sodium (135-145) mmol/L Potassium (3.5-5.1) mmol/L Chloride (98-107) mmol/L Carbon Dioxide (22-30) mmol/L Anion Gap (5-15) MEQ/L BUN (7-17) mg/dL Creatinine (0.52-1.04) mg/dL Estimated GFR ML/MIN Glucose (74-106) mg/dL Lactic Acid (0.4-2.0) Calcium (8.4-10.2) mg/dL Magnesium (1.6-2.3) mg/dL Iron (37-170) ug/dL TIBC (265-462) ug/dL Iron Saturation (20-39) % Ferritin 20.4 (6.24-137) ng/mL Total Bilirubin (0.2-1.3) mg/dL AST (14-36) U/L ALT (0-35) U/L Alkaline Phosphatase (38-126) U/L Troponin I 0.014 (0.000-0.033) ng/mL Serum Total Protein (6.3-8.2) g/dL Albumin (3.5-5.0) g/dL Influenza Type A Ag (NEGATIVE) Influenza Type B Ag (NEGATIVE) RSV (PCR) (NEGATIVE) SARS-CoV-2 (PCR) (NEGATIVE) 12/19/23 12/19/23 12/19/23 Range/Units 11:50 12:00 15:20 WBC (3.98-10.04) x10^3/uL RBC (3.93-5.22) x10^6/uL Hgb (11.2-15.7) g/dL Hct (34.1-44.9) % MCV (79.4-94.8) fL MCH (25.6-32.2) pg MCHC (32.2-35.5) g/dL RDW (11.7-14.4) % Plt Count (182-369) x10^3/uL MPV (9.4-12.3) fL Gran % (34.0-71.1) % Immature Gran % (Auto) (0.001-0.429) % Nucleat RBC Rel Count (0.00-0.2) % Eos # (Auto) (0.04-0.36) x10^3/uL Immature Gran # (Auto) (0.001-0.031) x10^3u/L Absolute Lymphs (auto) (1.18-3.74) x10^3/uL Absolute Monos (auto) (0.24-0.86) x10^3/uL Absolute Nucleated RBC (0.00-0.012) x10^3u/L Lymphocytes % (19.3-51.7) % Monocytes % (4.7-12.5) % Eosinophils % (0.7-5.8) % Basophils % (0.1-1.2) % Absolute Granulocytes (1.56-6.13) x10^3/uL Basophils # (0.01-0.08) x10^3/uL D-Dimer (0.0-0.50) mg/L pO2/FiO2 Ratio % VBG pH (7.32-7.42) VBG pCO2 at Pat Temp (42-55) mm/Hg VBG pO2 at Pat Temp (25-40) mm/Hg VBG HCO3 (22-28) meq/L VBG O2 Sat (Stephie) (95-100) VBG Base Excess (-2.0-2.0) VBG Hemoglobin VBG Carboxyhemoglobin (0.0-6.9) % T HGB POC Potassium (3.5-5.1) Sodium (135-145) mmol/L Potassium (3.5-5.1) mmol/L Chloride (98-107) mmol/L Carbon Dioxide (22-30) mmol/L Anion Gap (5-15) MEQ/L BUN (7-17) mg/dL Creatinine (0.52-1.04) mg/dL Estimated GFR ML/MIN Glucose (74-106) mg/dL Lactic Acid (0.4-2.0) Calcium (8.4-10.2) mg/dL Magnesium (1.6-2.3) mg/dL Iron 30 L (37-170) ug/dL TIBC 378 (265-462) ug/dL Iron Saturation 8 L (20-39) % Ferritin (6.24-137) ng/mL Total Bilirubin (0.2-1.3) mg/dL AST (14-36) U/L ALT (0-35) U/L Alkaline Phosphatase (38-126) U/L Troponin I < 0.012 (0.000-0.033) ng/mL Serum Total Protein (6.3-8.2) g/dL Albumin (3.5-5.0) g/dL Influenza Type A Ag NEGATIVE (NEGATIVE) Influenza Type B Ag NEGATIVE (NEGATIVE) RSV (PCR) NEGATIVE (NEGATIVE) SARS-CoV-2 (PCR) NEGATIVE (NEGATIVE) - Radiology Impressions Radiology Exams & Impressions: Radiology Procedures Category Date Time Status CHEST WITH CONTRAST [CT] Stat Exams 12/19/23 13:04 Completed - Other Procedures and Tests Respiratory Therapy 12/19/23 17:13 Respiratory Therapy Consult ONCE Assessment/Plan (1) Pneumonia Current Visit: Yes Status: Acute Assessment & Plan: - Antibiotocs, breathing treatments, Advair - Labs daily - RA- 95% - RT eval and treat - Flu/COVID/RSV negative - Tele - Tylenol for pain PRN - Zofran for nausea PRN - Ddimer - Chest CT:- negative for PE- likely 2:2 pneumonia Impression: 1. Pulmonary embolus evaluation limited by respiration artifact and patient body habitus. Again no obvious pulmonary embolus. 2. Again diffuse bilateral patchy groundglass airspace disease with tiny right effusion. 3. Chronic cardiomegaly and fatty liver. Code(s): J18.9 - PNEUMONIA, UNSPECIFIED ORGANISM (2) COPD with exacerbation Current Visit: Yes Status: Acute Assessment & Plan: - see above plan for pneumonia - RA-95% Code(s): J44.1 - CHRONIC OBSTRUCTIVE PULMONARY DISEASE W (ACUTE) EXACERBATION (3) Iron deficiency anemia Current Visit: Yes Status: Chronic Assessment & Plan: - anemia panel reviewed - Occult stool ordered in ER - known hx and has not been on iron supplementation for over a yr. - restart ferrous sulfate daily - trend- Hgb 8.5 trend Code(s): D50.9 - IRON DEFICIENCY ANEMIA, UNSPECIFIED (4) Hyperlipidemia Current Visit: Yes Status: Chronic Assessment & Plan: - Continue statin Code(s): E78.5 - HYPERLIPIDEMIA, UNSPECIFIED (5) Hypothyroidism Current Visit: Yes Status: Chronic Assessment & Plan: - Continue synthroid Code(s): E03.9 - HYPOTHYROIDISM, UNSPECIFIED (6) GERD (gastroesophageal reflux disease) Current Visit: Yes Status: Chronic Assessment & Plan: - Continue pepcid Code(s): K21.9 - GASTRO-ESOPHAGEAL REFLUX DISEASE WITHOUT ESOPHAGITIS (7) Depression Current Visit: Yes Status: Acute Assessment & Plan: - Continue Citalopram Code(s): F32.A - DEPRESSION, UNSPECIFIED (8) Anxiety disorder Current Visit: No Status: Chronic Assessment & Plan: - Continue Citalopram Code(s): F41.9 - ANXIETY DISORDER, UNSPECIFIED (9) DM2 (diabetes mellitus, type 2) Current Visit: No Status: Chronic 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: with 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 use Assessment & Plan: - accuchecks ac/hs - Humalog s/s, Lantus at HS PRN per records - A1C - Carb consistent diet (10) Morbid obesity Current Visit: No Status: Chronic Assessment & Plan: - Advised ADA diet and exercise control Code(s): E66.01 - MORBID (SEVERE) OBESITY DUE TO EXCESS CALORIES (11) History of atrial fibrillation Current Visit: Yes Status: Acute Assessment & Plan: - Continue home meds - Tele - Echo - BNP Code(s): Z86.79 - PERSONAL HISTORY OF OTHER DISEASES OF THE CIRCULATORY SYSTEM (12) Sleep apnea, obstructive Current Visit: No Status: Chronic Assessment & Plan: - Cpap at night - RT to provide as pt did not bring home CPAP VTE: xarelto PPI: pepcid Next of KIN:spouse Code status: Full Code(s): G47.33 - OBSTRUCTIVE SLEEP APNEA (ADULT) (PEDIATRIC) Telemedicine Encounter - Telemedicine Encounter Telemedicine Encounter: The entirety of this encounter was performed via Telemedicine" This visit was performed using real-time audio and video connection between my location and thepatients locationwith the assistance of a surrogateat the patients location. Written or verbal consent was obtained from the patient/guardian to perform this visit usingsynchronoustelemedicine technology. Any patient questions regarding the telemedicine interaction were answered.
[2023-12-19] MEDS: HUMALOG SQ PRN (17:43)
[2023-12-19] MEDS ORDERED: Compazine 10 MG/2 ML IM PRN (18:14)
[2023-12-19] MEDS ORDERED: VENTOLIN COMMON CANISTER IH PRN (18:19)
[2023-12-19] MEDS ORDERED: NON-FORMULARY ITEM (Insulin Detemir [Levemir] 100 UNIT/ML Vial) SQ PRN (18:19)
[2023-12-19] MEDS: DUONEB 0.5-3 MG/3 ml Neb IH SCH (18:50)
[2023-12-19] MEDS ORDERED: ADVAIR 500-50 DISKUS IH SCH (19:00)
[2023-12-19] MEDS ORDERED: Advair Hfa 230/21 Mcg COMMON CANISTER IH SCH (19:00)
[2023-12-19] MEDS: MORPHINE SULFATE 2 MG INJ IV PRN (19:47)
[2023-12-19] MEDS: ZOCOR 20MG PO SCH (21:33)
[2023-12-19] MEDS: Neurontin PO SCH (21:33)
[2023-12-19] MEDS: Pepcid 20 MG PO SCH (21:33)
[2023-12-19] MEDS: Ativan 0.5 MG PO SCH (21:33)
[2023-12-19] MEDS: Lantus Insulin SQ PRN (21:41)
[2023-12-19] MEDS ORDERED: LIPITOR 40MG PO SCH (22:00)
[2023-12-19] MEDS: ADVAIR 500-50 DISKUS IH SCH (22:56)
[2023-12-20] MEDS: BENADRYL 25 MG CAPSULE PO PRN (03:33)
[2023-12-20 07:43] LABS: Hemoglobin 7.9 g/dL (11.2-15.7); Mean Cell Volume 74.2 fL (79.4-94.8); Mean Corpuscular Hemoglobin 21.7 pg (25.6-32.2); Mean Corpuscular Hgb Concent. 29.3 g/dL (32.2-35.5); Mean Platelet Volume 9.6 fL (9.4-12.3); Platelet Count 321 x10^3/uL (182-369); Red Blood Count 3.64 x10^6/uL (3.93-5.22); Red Cell Distribution Width 16.8 % (11.7-14.4); White Blood Count 9.3 x10^3/uL (3.98-10.04)
[2023-12-20] MEDS: Advair Hfa 230/21 Mcg COMMON CANISTER IH SCH (07:45)
[2023-12-20 07:56] LABS: ALBUMIN 3.7 g/dL (3.5-5.0); ANION GAP 13.8 MEQ/L (5-15); BILIRUBIN,TOTAL 0.5 mg/dL (0.2-1.3); Calcium 9.1 mg/dL (8.4-10.2); Creatinine 1 0.58 mg/dL (0.52-1.04); EST GLOMERULAR FILTRATION RATE 114.4 ML/MIN; Potassium 3.7 mmol/L (3.5-5.1); Total Protein 6.9 g/dL (6.3-8.2)
[2023-12-20] MEDS: SYNTHROID 50 MCG PO SCH (08:30)
[2023-12-20] MEDS: HUMALOG SQ SCH (08:32)
[2023-12-20] MEDS: FEOSOL 325 MG PO SCH (09:57)
[2023-12-20] MEDS: ceLEXa 20 MG PO SCH (09:57)
[2023-12-20] MEDS: XARELTO 10 MG TABLET PO SCH (09:57)
[2023-12-20] MEDS: Lasix 40 MG/4 ML IV SCH (09:58)
[2023-12-20] MEDS: Ativan 0.5 MG PO SCH (09:58)
[2023-12-20] MEDS: Cardizem CD PO SCH (09:58)
[2023-12-20] MEDS ORDERED: NON-FORMULARY ITEM (Topiramate 25 Mg*** [Topamax 25 Mg***] 25 MG Capsule) PO SCH (10:00)
[2023-12-20] MEDS ORDERED: DILTIAZEM HCL 120 MG PO SCH (10:00)
[2023-12-20] MEDS ORDERED: SYNTHROID 50 MCG PO SCH (10:00)
[2023-12-20] MEDS ORDERED: NON-FORMULARY ITEM (Famotidine [Famotidine] 40 MG Tablet) PO SCH (10:00)
[2023-12-20] MEDS ORDERED: SYNTHROID 75 MCG PO SCH (10:00)
--- NOTE | 2023-12-20 10:35 | PCM.DS ---
Discharge Summary Date of Admission: 12/19/23 17:05 Date of Discharge: 12/20/23 Admitting Physician: ONUR ORTIZ MD Primary Care Provider: ELADIO QUISPE Allergies Allergies Sulfa (Sulfonamide Antibiotics) [Sulfa(Sulfonamide Antibiotics)] Allergy (Mild, Verified 12/19/23 17:25) Rash [facility] Summary - Hospital Course Hospital Course: 12/19/23 is a 43 year old female with PMHX of COPD, asthma, AFib, migraines, peripheral neuropathy, CHF, hyperlipidemia, HTN, Chronic bronchitis, apleep apnea, morbid obesity, TYpe II Dm, hypothyroidism, GERD, anxiety, depression, fibroids, iron def. anemia, and ITP ( follows Dr. Enriquez- hematology). She presents with a persistent cough and shortness of breath for over a month. She initially sought care at a quick care clinic where she was prescribed antibiotics and steroids, but her symptoms did not improve. She again went [facility] and was referred to ER as SOB worsened with exertion starting Tuesday. She reports a cough with yellow production and associated with chest pain, headaches, and nausea. She also reports feeling like she's going to pass out when walking from one room to another as she gets so SOB. She admits to orthopnea. She has been using an albuterol inhaler every four to six hours and albuterol breathing treatments, but these have not been helpful. She denies any swelling in her legs and reports no fevers, but does experience hot and cold flashes. She does feel swollen all over however. She was recently tested for strep throat and COVID-19, both of which were negative. She is also on a daily inhaler for her COPD, the name of which she cannot recall, but it is a red inhaler. She denies smoking. She reports she has not had her A1C checked in over a year and admits to not f/u on this. She was giving tylenol in ER which helped her H/A but not chest discomfort from pneumoina. She was also given tramadol in ER and reports this was not helpful. She is currently RA 95% O2. Anemia panel done in ER shows iron def anemia. She does have a hx of this but reports she has not been on iron for quite some time. She denies dark or tarry stools. She Follows hematology already. Will restart ferrous sulfate. D-Dimer 0.[address] negative for PE but + for pneumonia. Will continue IV antibiotics and breathing txs. Since pt has a hx of CHF will order Echo and BNP. Trop x2 negative. She denies abd. pain V/D. 12/20/23 Pt resting in bed. She explains she is feeling much better today. Continues to have a cough and some shortness of breath, however lungs are clear and not requiring oxygen. Diabetic education provided and pt admits she has not been doing well with taking meds as prescribed or controlling blood sugars. She admits to not eating a diabetic diet and needs to improve on eating more fruits and vegetables. Will d/c pt today with antibiotics and cough medication. Echo is pending results. She denies CP, SOB, abd. pain, N/V/D. - Vitals & Intake/Output Vital Signs: Vital Signs Temperature 97.8 F 12/20/23 07:18 Pulse Rate 87 12/20/23 07:45 Respiratory Rate 21 12/20/23 07:45 Blood Pressure 126/60 12/20/23 07:18 O2 Sat by Pulse Oximetry 98 12/20/23 07:45 Intake & Output: Intake & Output 12/17/23 12/18/23 12/19/23 12/20/23 11:59 11:59 11:59 11:59 Intake Total 880 Balance 880 Weight 157.1 kg 157.7 kg - Lab Result Diagrams: 12/20/23 07:36 12/20/23 07:36 Lab Results-Last 24 Hrs: Lab Results-Last 24 Hours 12/19/23 12/19/23 12/19/23 Range/Units 11:33 11:33 11:33 WBC (3.98-10.04) x10^3/uL RBC (3.93-5.22) x10^6/uL Hgb (11.2-15.7) g/dL Hct (34.1-44.9) % MCV (79.4-94.8) fL MCH (25.6-32.2) pg MCHC (32.2-35.5) g/dL RDW (11.7-14.4) % Plt Count (182-369) x10^3/uL MPV (9.4-12.3) fL Gran % (34.0-71.1) % Immature Gran % (Auto) (0.001-0.429) % Nucleat RBC Rel Count (0.00-0.2) % Eos # (Auto) (0.04-0.36) x10^3/uL Immature Gran # (Auto) (0.001-0.031) x10^3u/L Absolute Lymphs (auto) (1.18-3.74) x10^3/uL Absolute Monos (auto) (0.24-0.86) x10^3/uL Absolute Nucleated RBC (0.00-0.012) x10^3u/L Lymphocytes % (19.3-51.7) % Monocytes % (4.7-12.5) % Eosinophils % (0.7-5.8) % Basophils % (0.1-1.2) % Absolute Granulocytes (1.56-6.13) x10^3/uL Basophils # (0.01-0.08) x10^3/uL D-Dimer (0.0-0.50) mg/L pO2/FiO2 Ratio 21.0 % VBG pH 7.43 H (7.32-7.42) VBG pCO2 at Pat Temp 45 (42-55) mm/Hg VBG pO2 at Pat Temp 30 (25-40) mm/Hg VBG HCO3 29.9 H* (22-28) meq/L VBG O2 Sat (Stephie) 49.0 L (95-100) VBG Base Excess 5.0 H (-2.0-2.0) VBG Hemoglobin 9.1 VBG Carboxyhemoglobin 3.2 (0.0-6.9) % T HGB POC Potassium 4.2 (3.5-5.1) Sodium (135-145) mmol/L Potassium (3.5-5.1) mmol/L Chloride (98-107) mmol/L Carbon Dioxide (22-30) mmol/L Anion Gap (5-15) MEQ/L BUN (7-17) mg/dL Creatinine (0.52-1.04) mg/dL Estimated GFR ML/MIN Glucose (74-106) mg/dL POC Glucometer (74 to 106) mg/dL Hemoglobin A1c 9.30 H (4.5-6.0) % Lactic Acid 1.3 (0.4-2.0) Calcium (8.4-10.2) mg/dL Magnesium (1.6-2.3) mg/dL Iron (37-170) ug/dL TIBC (265-462) ug/dL Iron Saturation (20-39) % Ferritin (6.24-137) ng/mL Total Bilirubin (0.2-1.3) mg/dL AST (14-36) U/L ALT (0-35) U/L Alkaline Phosphatase (38-126) U/L Troponin I (0.000-0.033) ng/mL NT-Pro-B Natriuret Pep 2870 (<300) pg/mL Serum Total Protein (6.3-8.2) g/dL Albumin (3.5-5.0) g/dL Influenza Type A Ag (NEGATIVE) Influenza Type B Ag (NEGATIVE) RSV (PCR) (NEGATIVE) SARS-CoV-2 (PCR) (NEGATIVE) 12/19/23 12/19/23 12/19/23 Range/Units 11:50 11:50 11:50 WBC 9.3 (3.98-10.04) x10^3/uL RBC 3.97 (3.93-5.22) x10^6/uL Hgb 8.5 L (11.2-15.7) g/dL Hct 29.0 L (34.1-44.9) % MCV 73.0 L (79.4-94.8) fL MCH 21.4 L (25.6-32.2) pg MCHC 29.3 L (32.2-35.5) g/dL RDW 16.6 H (11.7-14.4) % Plt Count 344 (182-369) x10^3/uL MPV 10.1 (9.4-12.3) fL Gran % 73.1 H (34.0-71.1) % Immature Gran % (Auto) 1.2 H (0.001-0.429) % Nucleat RBC Rel Count 0.0 (0.00-0.2) % Eos # (Auto) 0.15 (0.04-0.36) x10^3/uL Immature Gran # (Auto) 0.11 H (0.001-0.031) x10^3u/L Absolute Lymphs (auto) 1.65 (1.18-3.74) x10^3/uL Absolute Monos (auto) 0.56 (0.24-0.86) x10^3/uL Absolute Nucleated RBC 0.00 (0.00-0.012) x10^3u/L Lymphocytes % 17.7 L (19.3-51.7) % Monocytes % 6.0 (4.7-12.5) % Eosinophils % 1.6 (0.7-5.8) % Basophils % 0.4 (0.1-1.2) % Absolute Granulocytes 6.80 H (1.56-6.13) x10^3/uL Basophils # 0.04 (0.01-0.08) x10^3/uL D-Dimer 0.71 H* (0.0-0.50) mg/L pO2/FiO2 Ratio % VBG pH (7.32-7.42) VBG pCO2 at Pat Temp (42-55) mm/Hg VBG pO2 at Pat Temp (25-40) mm/Hg VBG HCO3 (22-28) meq/L VBG O2 Sat (Stephie) (95-100) VBG Base Excess (-2.0-2.0) VBG Hemoglobin VBG Carboxyhemoglobin (0.0-6.9) % T HGB POC Potassium (3.5-5.1) Sodium 139 (135-145) mmol/L Potassium 4.0 (3.5-5.1) mmol/L Chloride 101 (98-107) mmol/L Carbon Dioxide 29 (22-30) mmol/L Anion Gap 13.3 (5-15) MEQ/L BUN 16 (7-17) mg/dL Creatinine 0.66 (0.52-1.04) mg/dL Estimated GFR 110.9 ML/MIN Glucose 260 H (74-106) mg/dL POC Glucometer (74 to 106) mg/dL Hemoglobin A1c (4.5-6.0) % Lactic Acid (0.4-2.0) Calcium 9.8 (8.4-10.2) mg/dL Magnesium 1.6 (1.6-2.3) mg/dL Iron (37-170) ug/dL TIBC (265-462) ug/dL Iron Saturation (20-39) % Ferritin (6.24-137) ng/mL Total Bilirubin 0.60 (0.2-1.3) mg/dL AST 25 (14-36) U/L ALT 44 H (0-35) U/L Alkaline Phosphatase 136 H (38-126) U/L Troponin I (0.000-0.033) ng/mL NT-Pro-B Natriuret Pep (<300) pg/mL Serum Total Protein 7.1 (6.3-8.2) g/dL Albumin 3.8 (3.5-5.0) g/dL Influenza Type A Ag (NEGATIVE) Influenza Type B Ag (NEGATIVE) RSV (PCR) (NEGATIVE) SARS-CoV-2 (PCR) (NEGATIVE) 12/19/23 12/19/23 12/19/23 Range/Units 11:50 11:50 11:50 WBC (3.98-10.04) x10^3/uL RBC (3.93-5.22) x10^6/uL Hgb (11.2-15.7) g/dL Hct (34.1-44.9) % MCV (79.4-94.8) fL MCH (25.6-32.2) pg MCHC (32.2-35.5) g/dL RDW (11.7-14.4) % Plt Count (182-369) x10^3/uL MPV (9.4-12.3) fL Gran % (34.0-71.1) % Immature Gran % (Auto) (0.001-0.429) % Nucleat RBC Rel Count (0.00-0.2) % Eos # (Auto) (0.04-0.36) x10^3/uL Immature Gran # (Auto) (0.001-0.031) x10^3u/L Absolute Lymphs (auto) (1.18-3.74) x10^3/uL Absolute Monos (auto) (0.24-0.86) x10^3/uL Absolute Nucleated RBC (0.00-0.012) x10^3u/L Lymphocytes % (19.3-51.7) % Monocytes % (4.7-12.5) % Eosinophils % (0.7-5.8) % Basophils % (0.1-1.2) % Absolute Granulocytes (1.56-6.13) x10^3/uL Basophils # (0.01-0.08) x10^3/uL D-Dimer (0.0-0.50) mg/L pO2/FiO2 Ratio % VBG pH (7.32-7.42) VBG pCO2 at Pat Temp (42-55) mm/Hg VBG pO2 at Pat Temp (25-40) mm/Hg VBG HCO3 (22-28) meq/L VBG O2 Sat (Stephie) (95-100) VBG Base Excess (-2.0-2.0) VBG Hemoglobin VBG Carboxyhemoglobin (0.0-6.9) % T HGB POC Potassium (3.5-5.1) Sodium (135-145) mmol/L Potassium (3.5-5.1) mmol/L Chloride (98-107) mmol/L Carbon Dioxide (22-30) mmol/L Anion Gap (5-15) MEQ/L BUN (7-17) mg/dL Creatinine (0.52-1.04) mg/dL Estimated GFR ML/MIN Glucose (74-106) mg/dL POC Glucometer (74 to 106) mg/dL Hemoglobin A1c (4.5-6.0) % Lactic Acid (0.4-2.0) Calcium (8.4-10.2) mg/dL Magnesium (1.6-2.3) mg/dL Iron 30 L (37-170) ug/dL TIBC 378 (265-462) ug/dL Iron Saturation 8 L (20-39) % Ferritin 20.4 (6.24-137) ng/mL Total Bilirubin (0.2-1.3) mg/dL AST (14-36) U/L ALT (0-35) U/L Alkaline Phosphatase (38-126) U/L Troponin I 0.014 (0.000-0.033) ng/mL NT-Pro-B Natriuret Pep (<300) pg/mL Serum Total Protein (6.3-8.2) g/dL Albumin (3.5-5.0) g/dL Influenza Type A Ag (NEGATIVE) Influenza Type B Ag (NEGATIVE) RSV (PCR) (NEGATIVE) SARS-CoV-2 (PCR) (NEGATIVE) 12/19/23 12/19/23 12/19/23 Range/Units 12:00 15:20 17:32 WBC (3.98-10.04) x10^3/uL RBC (3.93-5.22) x10^6/uL Hgb (11.2-15.7) g/dL Hct (34.1-44.9) % MCV (79.4-94.8) fL MCH (25.6-32.2) pg MCHC (32.2-35.5) g/dL RDW (11.7-14.4) % Plt Count (182-369) x10^3/uL MPV (9.4-12.3) fL Gran % (34.0-71.1) % Immature Gran % (Auto) (0.001-0.429) % Nucleat RBC Rel Count (0.00-0.2) % Eos # (Auto) (0.04-0.36) x10^3/uL Immature Gran # (Auto) (0.001-0.031) x10^3u/L Absolute Lymphs (auto) (1.18-3.74) x10^3/uL Absolute Monos (auto) (0.24-0.86) x10^3/uL Absolute Nucleated RBC (0.00-0.012) x10^3u/L Lymphocytes % (19.3-51.7) % Monocytes % (4.7-12.5) % Eosinophils % (0.7-5.8) % Basophils % (0.1-1.2) % Absolute Granulocytes (1.56-6.13) x10^3/uL Basophils # (0.01-0.08) x10^3/uL D-Dimer (0.0-0.50) mg/L pO2/FiO2 Ratio % VBG pH (7.32-7.42) VBG pCO2 at Pat Temp (42-55) mm/Hg VBG pO2 at Pat Temp (25-40) mm/Hg VBG HCO3 (22-28) meq/L VBG O2 Sat (Stephie) (95-100) VBG Base Excess (-2.0-2.0) VBG Hemoglobin VBG Carboxyhemoglobin (0.0-6.9) % T HGB POC Potassium (3.5-5.1) Sodium (135-145) mmol/L Potassium (3.5-5.1) mmol/L Chloride (98-107) mmol/L Carbon Dioxide (22-30) mmol/L Anion Gap (5-15) MEQ/L BUN (7-17) mg/dL Creatinine (0.52-1.04) mg/dL Estimated GFR ML/MIN Glucose (74-106) mg/dL POC Glucometer 459 H (74 to 106) mg/dL Hemoglobin A1c (4.5-6.0) % Lactic Acid (0.4-2.0) Calcium (8.4-10.2) mg/dL Magnesium (1.6-2.3) mg/dL Iron (37-170) ug/dL TIBC (265-462) ug/dL Iron Saturation (20-39) % Ferritin (6.24-137) ng/mL Total Bilirubin (0.2-1.3) mg/dL AST (14-36) U/L ALT (0-35) U/L Alkaline Phosphatase (38-126) U/L Troponin I < 0.012 (0.000-0.033) ng/mL NT-Pro-B Natriuret Pep (<300) pg/mL Serum Total Protein (6.3-8.2) g/dL Albumin (3.5-5.0) g/dL Influenza Type A Ag NEGATIVE (NEGATIVE) Influenza Type B Ag NEGATIVE (NEGATIVE) RSV (PCR) NEGATIVE (NEGATIVE) SARS-CoV-2 (PCR) NEGATIVE (NEGATIVE) 12/19/23 12/19/23 12/20/23 Range/Units 19:45 21:34 07:36 WBC 9.3 (3.98-10.04) x10^3/uL RBC 3.64 L (3.93-5.22) x10^6/uL Hgb 7.9 L (11.2-15.7) g/dL Hct 27.0 L (34.1-44.9) % MCV 74.2 L (79.4-94.8) fL MCH 21.7 L (25.6-32.2) pg MCHC 29.3 L (32.2-35.5) g/dL RDW 16.8 H (11.7-14.4) % Plt Count 321 (182-369) x10^3/uL MPV 9.6 (9.4-12.3) fL Gran % (34.0-71.1) % Immature Gran % (Auto) (0.001-0.429) % Nucleat RBC Rel Count (0.00-0.2) % Eos # (Auto) (0.04-0.36) x10^3/uL Immature Gran # (Auto) (0.001-0.031) x10^3u/L Absolute Lymphs (auto) (1.18-3.74) x10^3/uL Absolute Monos (auto) (0.24-0.86) x10^3/uL Absolute Nucleated RBC (0.00-0.012) x10^3u/L Lymphocytes % (19.3-51.7) % Monocytes % (4.7-12.5) % Eosinophils % (0.7-5.8) % Basophils % (0.1-1.2) % Absolute Granulocytes (1.56-6.13) x10^3/uL Basophils # (0.01-0.08) x10^3/uL D-Dimer (0.0-0.50) mg/L pO2/FiO2 Ratio % VBG pH (7.32-7.42) VBG pCO2 at Pat Temp (42-55) mm/Hg VBG pO2 at Pat Temp (25-40) mm/Hg VBG HCO3 (22-28) meq/L VBG O2 Sat (Stephie) (95-100) VBG Base Excess (-2.0-2.0) VBG Hemoglobin VBG Carboxyhemoglobin (0.0-6.9) % T HGB POC Potassium (3.5-5.1) Sodium (135-145) mmol/L Potassium (3.5-5.1) mmol/L Chloride (98-107) mmol/L Carbon Dioxide (22-30) mmol/L Anion Gap (5-15) MEQ/L BUN (7-17) mg/dL Creatinine (0.52-1.04) mg/dL Estimated GFR ML/MIN Glucose (74-106) mg/dL POC Glucometer 443 H (74 to 106) mg/dL Hemoglobin A1c (4.5-6.0) % Lactic Acid (0.4-2.0) Calcium (8.4-10.2) mg/dL Magnesium (1.6-2.3) mg/dL Iron (37-170) ug/dL TIBC (265-462) ug/dL Iron Saturation (20-39) % Ferritin (6.24-137) ng/mL Total Bilirubin (0.2-1.3) mg/dL AST (14-36) U/L ALT (0-35) U/L Alkaline Phosphatase (38-126) U/L Troponin I < 0.012 (0.000-0.033) ng/mL NT-Pro-B Natriuret Pep (<300) pg/mL Serum Total Protein (6.3-8.2) g/dL Albumin (3.5-5.0) g/dL Influenza Type A Ag (NEGATIVE) Influenza Type B Ag (NEGATIVE) RSV (PCR) (NEGATIVE) SARS-CoV-2 (PCR) (NEGATIVE) 12/20/23 12/20/23 Range/Units 07:36 07:36 WBC (3.98-10.04) x10^3/uL RBC (3.93-5.22) x10^6/uL Hgb (11.2-15.7) g/dL Hct (34.1-44.9) % MCV (79.4-94.8) fL MCH (25.6-32.2) pg MCHC (32.2-35.5) g/dL RDW (11.7-14.4) % Plt Count (182-369) x10^3/uL MPV (9.4-12.3) fL Gran % (34.0-71.1) % Immature Gran % (Auto) (0.001-0.429) % Nucleat RBC Rel Count (0.00-0.2) % Eos # (Auto) (0.04-0.36) x10^3/uL Immature Gran # (Auto) (0.001-0.031) x10^3u/L Absolute Lymphs (auto) (1.18-3.74) x10^3/uL Absolute Monos (auto) (0.24-0.86) x10^3/uL Absolute Nucleated RBC (0.00-0.012) x10^3u/L Lymphocytes % (19.3-51.7) % Monocytes % (4.7-12.5) % Eosinophils % (0.7-5.8) % Basophils % (0.1-1.2) % Absolute Granulocytes (1.56-6.13) x10^3/uL Basophils # (0.01-0.08) x10^3/uL D-Dimer (0.0-0.50) mg/L pO2/FiO2 Ratio % VBG pH (7.32-7.42) VBG pCO2 at Pat Temp (42-55) mm/Hg VBG pO2 at Pat Temp (25-40) mm/Hg VBG HCO3 (22-28) meq/L VBG O2 Sat (Stephie) (95-100) VBG Base Excess (-2.0-2.0) VBG Hemoglobin VBG Carboxyhemoglobin (0.0-6.9) % T HGB POC Potassium (3.5-5.1) Sodium 138 (135-145) mmol/L Potassium 3.7 (3.5-5.1) mmol/L Chloride 102 (98-107) mmol/L Carbon Dioxide 25 (22-30) mmol/L Anion Gap 13.8 (5-15) MEQ/L BUN 15 (7-17) mg/dL Creatinine 0.58 (0.52-1.04) mg/dL Estimated GFR 114.4 ML/MIN Glucose 262 H (74-106) mg/dL POC Glucometer 238 H (74 to 106) mg/dL Hemoglobin A1c (4.5-6.0) % Lactic Acid (0.4-2.0) Calcium 9.1 (8.4-10.2) mg/dL Magnesium (1.6-2.3) mg/dL Iron (37-170) ug/dL TIBC (265-462) ug/dL Iron Saturation (20-39) % Ferritin (6.24-137) ng/mL Total Bilirubin 0.50 (0.2-1.3) mg/dL AST 18 (14-36) U/L ALT 37 H (0-35) U/L Alkaline Phosphatase 111 (38-126) U/L Troponin I (0.000-0.033) ng/mL NT-Pro-B Natriuret Pep (<300) pg/mL Serum Total Protein 6.9 (6.3-8.2) g/dL Albumin 3.7 (3.5-5.0) g/dL Influenza Type A Ag (NEGATIVE) Influenza Type B Ag (NEGATIVE) RSV (PCR) (NEGATIVE) SARS-CoV-2 (PCR) (NEGATIVE) Micro Results-Entire Visit: Accuchecks Date 12/20/23 Date 12/19/23 Time 07:52 - Radiology Exams Ordered Rad Exams-Entire Visit: Radiology Procedures Category Date Time Status CHEST WITH CONTRAST [CT] Stat Exams 12/19/23 13:04 Completed ECHO W/2D AND DOPPLER [US] Routine Exams 12/20/23 18:13 Ordered - Procedures and Test Procedures and Tests throughout Hospitalization: Therapy Orders & Screens 12/19/23 11:47 Respiratory Therapy Assessment DAILY Comment: 12/19/23 17:13 Respiratory Therapy Consult ONCE Comment: Reason For Exam: 12/19/23 17:59 BiPap/CPAP ROUTINE Comment: CPAP 12CM H2O AT NIGHT Diagnosis: SOB, COPD, pneumonia 12/19/23 18:12 RT Miscellaneous Order ROUTINE Comment: Physician Instructions: RT eval and treat PRN Reason For Exam: CPAP at noc Diagnosis: SOB, COPD, pneumonia 12/19/23 18:20 Respiratory MDI BID Comment: Diagnosis: SOB, COPD, pneumonia 12/19/23 18:53 Respiratory MDI UD Comment: Diagnosis: SOB, COPD, pneumonia 12/19/23 18:59 Respiratory MDI UD Comment: Diagnosis: SOB, COPD, pneumonia 12/19/23 19:32 Respiratory Therapy Assessment DAILY Comment: Diagnosis: SOB, COPD, pneumonia Discharge Exam General Appearance: no apparent distress, alert, obese Neurologic Exam: alert, 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, cooperative, normal mood/affect, nml cerebellar function, sensation nml, No motor deficits Eye Exam: PERRL, EOMI, eyes nml inspection Ears, Nose, Throat Exam: normal ENT inspection, pharynx normal, moist mucous membranes Neck Exam: normal inspection, non-tender, supple, full range of motion Respiratory Exam: normal breath sounds, lungs clear, No respiratory distress Cardiovascular Exam: regular rate/rhythm, normal heart sounds Gastrointestinal/Abdomen Exam: soft, No tenderness, No mass Pelvic Exam: deferred Rectal Exam: deferred Back Exam: normal inspection, normal range of motion, No CVA tenderness, No vertebral tenderness Extremity Exam: normal inspection, normal range of motion Skin Exam: normal color, warm, dry Final Diagnosis/Problem List - Final Discharge Diagnosis/Problem (1) Pneumonia Current Visit: Yes Status: Acute Code(s): J18.9 - PNEUMONIA, UNSPECIFIED ORGANISM (2) COPD with exacerbation Current Visit: Yes Status: Acute Code(s): J44.1 - CHRONIC OBSTRUCTIVE PULMONARY DISEASE W (ACUTE) EXACERBATION (3) Iron deficiency anemia Current Visit: Yes Status: Chronic Code(s): D50.9 - IRON DEFICIENCY ANEMIA, UNSPECIFIED (4) Hyperlipidemia Current Visit: Yes Status: Chronic Code(s): E78.5 - HYPERLIPIDEMIA, UNSPECIFIED (5) Hypothyroidism Current Visit: Yes Status: Chronic Code(s): E03.9 - HYPOTHYROIDISM, UNSPECIFIED (6) GERD (gastroesophageal reflux disease) Current Visit: Yes Status: Chronic Code(s): K21.9 - GASTRO-ESOPHAGEAL REFLUX DISEASE WITHOUT ESOPHAGITIS (7) Depression Current Visit: Yes Status: Acute Code(s): F32.A - DEPRESSION, UNSPECIFIED (8) Anxiety disorder Current Visit: No Status: Chronic Code(s): F41.9 - ANXIETY DISORDER, UNSPECIFIED (9) DM2 (diabetes mellitus, type 2) Current Visit: No Status: Chronic (10) Morbid obesity Current Visit: No Status: Chronic Code(s): E66.01 - MORBID (SEVERE) OBESITY DUE TO EXCESS CALORIES (11) History of atrial fibrillation Current Visit: Yes Status: Acute Code(s): Z86.79 - PERSONAL HISTORY OF OTHER DISEASES OF THE CIRCULATORY SYSTEM (12) Sleep apnea, obstructive Current Visit: No Status: Chronic Assessment & Plan: (1) Pneumonia Current Visit: Yes Status: Acute Assessment & Plan: - Antibiotics, breathing treatments, Advair - Labs daily - RA- 95% - RT eval and treat - Flu/COVID/RSV negative - Tele - Tylenol for pain PRN - Zofran for nausea PRN - Ddimer - Chest CT:- negative for PE- likely 2:2 pneumonia Impression: 1. Pulmonary embolus evaluation limited by respiration artifact and patient body habitus. Again no obvious pulmonary embolus. 2. Again diffuse bilateral patchy ground glass airspace disease with tiny right effusion. 3. Chronic cardiomegaly and fatty liver. 12/19 - Continue OP antibiotics - BC x2 pending- will cotinue to follow OP - RA 96% Code(s): J18.9 - PNEUMONIA, UNSPECIFIED ORGANISM (2) COPD with exacerbation Current Visit: Yes Status: Acute Assessment & Plan: - see above plan for pneumonia - RA-95% 12/19 - RA 96% Code(s): J44.1 - CHRONIC OBSTRUCTIVE PULMONARY DISEASE W (ACUTE) EXACERBATION (3) Iron deficiency anemia Current Visit: Yes Status: Chronic Assessment & Plan: - anemia panel reviewed - Occult stool ordered in ER - known hx and has not been on iron supplementation for over a yr. - restart ferrous sulfate daily - trend- Hgb 8.5 trend Code(s): D50.9 - IRON DEFICIENCY ANEMIA, UNSPECIFIED (4) Hyperlipidemia Current Visit: Yes Status: Chronic Assessment & Plan: - Continue statin Code(s): E78.5 - HYPERLIPIDEMIA, UNSPECIFIED (5) Hypothyroidism Current Visit: Yes Status: Chronic Assessment & Plan: - Continue synthroid Code(s): E03.9 - HYPOTHYROIDISM, UNSPECIFIED (6) GERD (gastroesophageal reflux disease) Current Visit: Yes Status: Chronic Assessment & Plan: - Continue pepcid Code(s): K21.9 - GASTRO-ESOPHAGEAL REFLUX DISEASE WITHOUT ESOPHAGITIS (7) Depression Current Visit: Yes Status: Acute Assessment & Plan: - Continue Citalopram Code(s): F32.A - DEPRESSION, UNSPECIFIED (8) Anxiety disorder Current Visit: No Status: Chronic Assessment & Plan: - Continue Citalopram Code(s): F41.9 - ANXIETY DISORDER, UNSPECIFIED (9) DM2 (diabetes mellitus, type 2) Current Visit: No Status: Chronic Qualifiers: Diabetes mellitus snf insulin use: 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 Assessment & Plan: - accuchecks ac/hs - Humalog s/s, Lantus at HS PRN per records - A1C 9.30 - Carb consistent diet - diabetic education provided (10) Morbid obesity Current Visit: No Status: Chronic Assessment & Plan: - Advised ADA diet and exercise control Code(s): E66.01 - MORBID (SEVERE) OBESITY DUE TO EXCESS CALORIES (11) History of atrial fibrillation Current Visit: Yes Status: Acute Assessment & Plan: - Continue home meds - Tele - Echo- pending results - BNP Code(s): Z86.79 - PERSONAL HISTORY OF OTHER DISEASES OF THE CIRCULATORY SYSTEM (12) Sleep apnea, obstructive Current Visit: No Status: Chronic Assessment & Plan: - Cpap at night - RT to provide as pt did not bring home CPAP Code(s): G47.33 - OBSTRUCTIVE SLEEP APNEA (ADULT) (PEDIATRIC) - Discharge Discharge Date: 12/20/23 Disposition: Home, Self-Care Condition: Stable Prescriptions: New Ferrous Sulfate 325 mg [Feosol 325 mg] 325 mg PO DAILY 30 Days #30 tablet Continue Famotidine 40 mg PO BID Rivaroxaban 10 mg Tablet [Xarelto 10 mg Tablet] 20 mg PO DAILY Gabapentin [Neurontin ] 400 mg PO BID Albuterol/Ipratropium 3ml Neb* [DUONEB 0.5-3 MG/3 ml Neb] 3 ml NEBULIZE Q4H PRN PRN #1 box PRN Reason: Wheezing/Chest Congestion dilTIAZem HCL [Diltiazem 24Hr ER (Cd)] 120 mg PO DAILY Insulin Detemir [Levemir] 10 - 15 unit SQ HS Atorvastatin Calcium 40 mg PO HS Albuterol Sulfate [Proair Hfa] 2 puff IH Q4H PRN PRN PRN Reason: Wheezing/Chest Congestion Citalopram Hydrobromide 20 mg* [ceLEXa 20 MG] 20 mg PO DAILY #0 Metformin HCl 500 mg [Glucophage 500 MG] 500 mg PO BIDWM Levothyroxine Sodium 50 Mcg [Synthroid 50 Mcg] 50 mcg PO DAILY Empagliflozin [Jardiance] 10 mg PO DAILY Amiodarone HCl 200 mg PO BID Follow up with: ELADIO QUISPE MD [Primary Care Provider] -
[2023-12-20] MEDS: TOPIRAMATE PO SCH ×2 (11:03)
[2023-12-20] MEDS: ROCEPHIN 1 GM / 100 ML NaCl 1 GM/100 ML IVPB IV SCH (11:24)
[2023-12-20] MEDS: Tessalon Perles 100 MG PO PRN (11:24)
[2023-12-20 11:34] VITALS: RESP 20
[2023-12-20 11:56] VITALS: BP 132/61; PULSE 104; TEMP 98.5; O2SAT 94
[2023-12-20] MEDS: Zithromax 500 MG/ 250 ML NaCl Premix 500 MG/250 ML IVPB IV SCH (11:57)
[2023-12-20] MEDS: JARDIANCE PO SCH (12:09)
[2023-12-21] MEDS ORDERED: Glucophage 500 MG PO SCH (17:00)
== END 2023-12-20 14:57 | disposition home or self-care (01) ==
LOC: ED 11:01 → MED SURG 17:05
PROVIDERS: ADMIT Internal Medicine; ATTEND Internal Medicine
DX: J18.9 Pneumonia, unspecified organism (principal); J44.1 Chronic obstructive pulmonary disease with (acute) exacerbation; D50.9 Iron deficiency anemia, unspecified; E78.5 Hyperlipidemia, unspecified; E03.9 Hypothyroidism, unspecified; K21.9 Gastro-esophageal reflux disease without esophagitis; F32.A Depression, unspecified; F41.9 Anxiety disorder, unspecified; E11.9 Type 2 diabetes mellitus without complications; E66.01 Morbid (severe) obesity due to excess calories; I11.0 Hypertensive heart disease with heart failure; I50.9 Heart failure, unspecified; Z86.79 Personal history of other diseases of the circulatory system; G47.33 Obstructive sleep apnea (adult) (pediatric); Z79.899 Other long term (current) drug therapy; Z79.01 Long term (current) use of anticoagulants
CPT/HCPCS: 0241U; 36000; 36415; 71260; 80053; 82728; 82805; 82947; 83036; 83540; 83550; 83605; 83735; 83880; 84484; 85025; 85027; 85379; 87040; 93005; 93268; 93306; 94640; 94660; 94762; 96360; 96361; 96365; 96367; 96374; 99285; G0378; Q3014; J0456; J0696; J1817; J1940; J1956; J2270; J2919; A9270-GY

== ENCOUNTER 2024-04-23 16:40 | Emergency (ER) | payer OTHER ==
--- NOTE | 2024-04-23 16:42 | ERPHSYRPT ---
- History of Present Illness Time Seen by Provider: 04/23/24 16:42 Source: patient, EMS, old records Physician History: This is a morbidly obese 43-year-old white female patient of Dr. Quispe who p resents to the emergency department transported by the paramedics because of shortness of breath and coughing without fever that occurred after a nap today. Patient states for the last 2 to 3 days she was not feeling very well but then yesterday she actually felt a lot better. Today, she took a nap before work, then woke up with shortness of breath cough without a fever. She gave herself a nebulizer treatment and inhaler treatment without much benefit. Patient denies chest pain. She currently denies shortness of breath and her room air oxygen saturation level is 98%. Her heart rate is in the 80s. The patient had a negative cardiac catheterization performed on 09/25/2019. Patient is on Xarelto. She does have a history gastroesophageal proximal disease, hyperlipidemia, hypothyroidism, diabetes, peripheral neuropathy, anxiety, CHF, hypertension, asthma and bronchitis. Timing/Duration: today Activities at Onset: none Severity of Dyspnea-Max: mild Severity of Dyspnea-Current: mild Possible Cause: occasional episodes Modifying Factors: Improves With: albuterol inhaler, albuterol nebulizer, coughing Associated Symptoms: cough, wheezing, No chest pain/discomfort Allergies/Adverse Reactions: Sulfa (Sulfonamide Antibiotics) [Sulfa(Sulfonamide Antibiotics)] Allergy (Mild, Verified 04/23/24 16:44) Rash rash Home Medications: Famotidine 40 mg PO BID 03/09/16 [History] Rivaroxaban 10 mg Tablet [Xarelto 10 mg Tablet] 20 mg PO DAILY 08/28/17 [H istory] Gabapentin [Neurontin ] 400 mg PO BID 12/07/18 [History] Atorvastatin Calcium 40 mg PO HS 11/14/21 [History] Insulin Detemir [Levemir] 10 - 15 unit SQ HS 11/14/21 [History] dilTIAZem HCL [Diltiazem 24Hr ER (Cd)] 120 mg PO DAILY 11/14/21 [History] Albuterol Sulfate [Proair Hfa] 2 puff IH Q4H PRN PRN 11/15/21 [History] Empagliflozin [Jardiance] 10 mg PO DAILY 12/19/23 [History] Levothyroxine Sodium 50 Mcg [Synthroid 50 Mcg] 50 mcg PO DAILY 12/19/23 [History] Metformin HCl 500 mg [Glucophage 500 MG] 500 mg PO BIDWM 12/19/23 [History] Amiodarone HCl 200 mg PO BID 12/20/23 [History] Hx Tetanus, Diphtheria Vaccination/Date Given: Yes Hx Influenza Vaccination/Date Given: No Hx Pneumococcal Vaccination/Date Given: No Travel Risk - International Travel Have you traveled outside of the country in past 3 weeks: No - Emerging Infectious Disease Are you exhibiting symptoms associated with any current EIDs: Yes Symptoms: Cough: New Onset, Shortness of Breath - Review of Systems Constitutional: No Symptoms Eyes: No Symptoms Ears, Nose, & Throat: No Symptoms Respiratory: Cough, Dyspnea, Wheezing Cardiac: No Symptoms Abdominal/Gastrointestinal: No Symptoms Genitourinary Symptoms: No Symptoms Musculoskeletal: No Symptoms Skin: No Symptoms Neurological: No Symptoms Psychological: No Symptoms Endocrine: No Symptoms Hematologic/Lymphatic: No Symptoms Immunological/Allergic: No Symptoms All Other Systems: Reviewed and Negative - Past Medical History Pertinent Past Medical History: Yes Neurological History: Migraines, Peripheral Neuropathy ENT History: No Pertinent History Cardiac History: Congestive Heart Failure, High Cholesterol, Hypertension, Other Respiratory History: Asthma, Bronchitis, Pneumonia, Sleep Apnea Endocrine Medical History: Diabetes Type II, Hypothyroidism Musculoskeletal History: No Pertinent History GI Medical History: GERD History: No Pertinent History Psycho-Social History: Anxiety, Depression Female Reproductive Disorders: Fibroids Other Medical History: Cath Report 09/25/19 coronary arteries clean, leaky heart valve. ITP - Past Surgical History Past Surgical History: Yes Neuro Surgical History: No Pertinent History Cardiac: Cardiac Catheterization, Other Respiratory: No Pertinent History Gastrointestinal: No Pertinent History Genitourinary: No Pertinent History Musculoskeletal: Other Female Surgical History: No Pertinent History Other Surgical History: bunion to right foot, ablation Significant Family History: no pertinent family hx, heart disease, hypertension - Female History Hx Last Menstrual Period: last month - Social History Smoking Status: Never smoker Exposure to second hand smoke: No Alcohol Use: None Drug Use: none Patient Lives Alone: No - Social Determinants of Health Will the patient participate in the screening: Yes Do you worry about a steady place to live?: No In the past 12 months,have you had to go without utilities?: No Transportation Issues: No Has anyone in your support network made you feel unsafe?: No Have you or anyone in your house had to go without enough: No - Nursing Vital Signs Nursing Vital Signs: Initial Vital Signs Temperature 97.7 F 04/23/24 16:41 Pulse Rate 92 H 04/23/24 16:41 Respiratory Rate 18 04/23/24 16:41 Blood Pressure 130/75 04/23/24 16:41 O2 Sat by Pulse Oximetry 96 04/23/24 16:41 Pain Scale Pain Intensity 4 - Physical Exam General Appearance: no apparent distress, alert, anxiety, obese Eye Exam: PERRL/EOMI, eyes nml inspection Ears, Nose, Throat Exam: hearing grossly normal, normal ENT inspection, normal pharynx Neck Exam: normal inspection, non-tender, supple, full range of motion Respiratory Exam: chest tenderness, airway intact, wheezing (Mild bibasilar wheezing), No respiratory distress Cardiovascular/Chest Exam: normal heart sounds, regular rate/rhythm, normal peripheral pulses Abdominal/Gastrointestinal Exam: soft, normal bowel sounds, No tenderness Rectal Exam: not done Extremity Exam: non-tender, normal range of motion, normal inspection Neurologic Exam: alert, 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, cooperative, visual developer II-XII nml as tested, nml cerebellar function, nml station & gait, sensation nml Skin Exam: normal color, warm, dry Lymphatic Exam: No adenopathy SpO2 Interpretation: normal O2 Delivery: Room Air - Course Nursing assessment & vital signs reviewed: Yes EKG Interpreted by Me: RATE (76), Sinus Rhythm, NORMAL AXIS, NORMAL INTERVALS, Right Bundle Branch Block (Incomplete), Other (No acute ischemic changes on today's twelve-lead EKG. QTc is 476. When compared to twelve-lead EKG dated 12/19/2023, there is resolution today of the sinus tachycardia and there are no Q waves on today's twelve-lead EKG) Ordered Tests: Active Orders 24 hr Category Date Time Status EKG-ER Only STAT Care 04/23/24 17:08 Active IV Insertion STAT Care 04/23/24 17:08 Completed Pulse Oximetry (ED) STAT Care 04/23/24 17:08 Active CHEST 1 VIEW (PORTABLE) Stat Exams 04/23/24 18:11 Taken BLOOD CULTURE Stat Lab 04/23/24 17:35 Received CBC W DIFF Stat Lab 04/23/24 17:35 Completed CMP Stat Lab 04/23/24 17:35 Completed MAGNESIUM Stat Lab 04/23/24 17:35 Completed NT PRO BNPII Stat Lab 04/23/24 17:35 Completed PROTIME WITH INR Stat Lab 04/23/24 17:35 Completed TROPONIN Q4H Lab 04/23/24 17:35 Completed TROPONIN Q4H Lab 04/23/24 21:15 Ordered TROPONIN Q4H Lab 04/24/24 01:15 Ordered Medication Summary Generic Name Dose Route Start Last Admin Trade Name Freq PRN Reason Stop Dose Admin Ceftriaxone Sodium 1 gm in 100 mls @ 200 mls/hr 04/23/24 18:54 04/23/24 19:01 Rocephin 1 Gm / 100 Ml Nacl IV 04/23/24 19:23 200 ml/hr STAT ONE 200 mls/hr Administration Lab/Rad Data: Laboratory Result Diagrams 04/23/24 17:35 04/23/24 17:35 Laboratory Results 04/23/24 04/23/24 04/23/24 Range/Units 17:45 17:35 17:35 WBC (3.98-10.04) x10^3/uL RBC (3.93-5.22) x10^6/uL Hgb (11.2-15.7) g/dL Hct (34.1-44.9) % MCV (79.4-94.8) fL MCH (25.6-32.2) pg MCHC (32.2-35.5) g/dL RDW (11.7-14.4) % Plt Count (182-369) x10^3/uL MPV (9.4-12.3) fL Gran % (34.0-71.1) % Immature Gran % (Auto) (0.001-0.429) % Nucleat RBC Rel Count (0.00-0.2) % Eos # (Auto) (0.04-0.36) x10^3/uL Immature Gran # (Auto) (0.001-0.031) x10^3u/L Absolute Lymphs (auto) (1.18-3.74) x10^3/uL Absolute Monos (auto) (0.24-0.86) x10^3/uL Absolute Nucleated RBC (0.00-0.012) x10^3u/L Lymphocytes % (19.3-51.7) % Monocytes % (4.7-12.5) % Eosinophils % (0.7-5.8) % Basophils % (0.1-1.2) % Absolute Granulocytes (1.56-6.13) x10^3/uL Basophils # (0.01-0.08) x10^3/uL PT 10.7 (9.4-12.5) SECONDS INR 0.98 (0.8-3.0) Sodium (135-145) mmol/L Potassium (3.5-5.1) mmol/L Chloride (98-107) mmol/L Carbon Dioxide (22-30) mmol/L Anion Gap (5-15) MEQ/L BUN (7-17) mg/dL Creatinine (0.52-1.04) mg/dL Estimated GFR ML/MIN Glucose (74-106) mg/dL Calcium (8.4-10.2) mg/dL Magnesium (1.6-2.3) mg/dL Total Bilirubin (0.2-1.3) mg/dL AST (14-36) U/L ALT (0-35) U/L Alkaline Phosphatase (38-126) U/L Troponin I < 0.012 (0.000-0.033) ng/mL NT-Pro-B Natriuret Pep (<300) pg/mL Serum Total Protein (6.3-8.2) g/dL Albumin (3.5-5.0) g/dL Influenza Type A Ag NEGATIVE (NEGATIVE) Influenza Type B Ag NEGATIVE (NEGATIVE) RSV (PCR) NEGATIVE (NEGATIVE) SARS-CoV-2 (PCR) NEGATIVE (NEGATIVE) 04/23/24 04/23/24 Range/Units 17:35 17:35 WBC 7.2 (3.98-10.04) x10^3/uL RBC 3.98 (3.93-5.22) x10^6/uL Hgb 9.5 L (11.2-15.7) g/dL Hct 31.4 L (34.1-44.9) % MCV 78.9 L (79.4-94.8) fL MCH 23.9 L (25.6-32.2) pg MCHC 30.3 L (32.2-35.5) g/dL RDW 17.1 H (11.7-14.4) % Plt Count 290 (182-369) x10^3/uL MPV 9.1 L (9.4-12.3) fL Gran % 72.5 H (34.0-71.1) % Immature Gran % (Auto) 1.0 H (0.001-0.429) % Nucleat RBC Rel Count 0.0 (0.00-0.2) % Eos # (Auto) 0.08 (0.04-0.36) x10^3/uL Immature Gran # (Auto) 0.07 H (0.001-0.031) x10^3u/L Absolute Lymphs (auto) 1.33 (1.18-3.74) x10^3/uL Absolute Monos (auto) 0.46 (0.24-0.86) x10^3/uL Absolute Nucleated RBC 0.00 (0.00-0.012) x10^3u/L Lymphocytes % 18.4 L (19.3-51.7) % Monocytes % 6.4 (4.7-12.5) % Eosinophils % 1.1 (0.7-5.8) % Basophils % 0.6 (0.1-1.2) % Absolute Granulocytes 5.26 (1.56-6.13) x10^3/uL Basophils # 0.04 (0.01-0.08) x10^3/uL PT (9.4-12.5) SECONDS INR (0.8-3.0) Sodium 139 (135-145) mmol/L Potassium 3.6 (3.5-5.1) mmol/L Chloride 106 (98-107) mmol/L Carbon Dioxide 23 (22-30) mmol/L Anion Gap 13.4 (5-15) MEQ/L BUN 14 (7-17) mg/dL Creatinine 0.67 (0.52-1.04) mg/dL Estimated GFR 110.5 ML/MIN Glucose 193 H (74-106) mg/dL Calcium 8.7 (8.4-10.2) mg/dL Magnesium 1.6 (1.6-2.3) mg/dL Total Bilirubin 0.30 (0.2-1.3) mg/dL AST 24 (14-36) U/L ALT 39 H (0-35) U/L Alkaline Phosphatase 106 (38-126) U/L Troponin I (0.000-0.033) ng/mL NT-Pro-B Natriuret Pep 715 (<300) pg/mL Serum Total Protein 6.8 (6.3-8.2) g/dL Albumin 3.8 (3.5-5.0) g/dL Influenza Type A Ag (NEGATIVE) Influenza Type B Ag (NEGATIVE) RSV (PCR) (NEGATIVE) SARS-CoV-2 (PCR) (NEGATIVE) - Progress Progress: improved, re-examined Air Movement: good Progress Note: 04/23/24 18:08 My medical decision making and the assignment of moderate complexity to this patient's medical issue today is based on review of the patient's past medical history, review the patient's medication list, reviewed patient drug allergy list, history present illness and physical findings on examination. The workup in this patient includes placement of intravenous line, respiratory therapy evaluation, CBC, CMP, troponin level, BNP, chest x-ray, twelve-lead EKG, viral swabs. The differential diagnosis includes but is not limited to pneumonia, viral illness, COPD exacerbation, CHF exacerbation, myocardial infarction, electrolyte abnormalities, arrhythmia 04/23/24 18:51 I interpreted the patient's laboratory data results. The patient has chronic anemia and her hemoglobin today is higher than the last recorded outpatient level. I did not draw a D-dimer level as the patient is on Xarelto and has no complaints of chest pain. There are no other acute, emergent findings. I interpreted the preliminary report of this patient's chest x-ray. I am interpreting this x-ray as an early right lower lobe infiltrate versus atelectasis versus radiographic technique. 04/23/24 19:02 I reexamined the patient. The patient does not have shortness of breath at this time. She has no chest pain. Her room air oxygenation saturation levels 98%. She is in no distress. Blood Culture(s) Obtained: Yes Antibiotics given: Yes Counseled pt/family regarding: lab results, diagnosis, need for follow-up, rad results Medical Desision Making - Independent Historian Additional History obtained from: Event Marketing Assistant/EMT - Diagnostic Testing Diagnostic test were ordered, analyzed, and reviewed by me: Yes - Risk of complications The pt has a mod risk of morbidity or mortality based on: Need for prescription drug management - Departure Departure Disposition: Home Clinical Impression: Pulmonary infiltrate in right lung on chest x-ray, Chronic anemia Condition: Stable Critical Care Time: No Referrals: ELADIO QUISPE MD [Primary Care Provider] - Follow up/PCP as directed Additional Instructions: Drink plenty fluids. Avoid exposure to any type of smoke. Take your antibiotics and other medications as prescribed. Call your primary care provider tomorrow, 04/24/2024, to make arranges for follow-up appointment for further evaluation management. Continue nebulizer and inhaler treatments as prescribed. Prescriptions: Cefdinir 300 mg PO BID #14 cap
[2024-04-23 16:44] VITALS: TEMP 97.7
[2024-04-23 17:52] LABS: Absolute Neutrophil Ct (ANC) 5.26 x10^3/uL (1.56-6.13); BASOPHIL % 0.6 % (0.1-1.2); Basophil (Absolute #) 0.04 x10^3/uL (0.01-0.08); Eosinophil % 1.1 % (0.7-5.8); Eosinophil (Absolute #) 0.08 x10^3/uL (0.04-0.36); Hematocrit 31.4 % (34.1-44.9); Hemoglobin 9.5 g/dL (11.2-15.7); IMMATURE GRAN # 0.07 x10^3u/L (0.001-0.031); Lymphocyte (Absolute #) 1.33 x10^3/uL (1.18-3.74); Lymphocytes % 18.4 % (19.3-51.7); Mean Cell Volume 78.9 fL (79.4-94.8); Mean Corpuscular Hemoglobin 23.9 pg (25.6-32.2); Mean Corpuscular Hgb Concent. 30.3 g/dL (32.2-35.5); Mean Platelet Volume 9.1 fL (9.4-12.3); Monocyte (Absolute #) 0.46 x10^3/uL (0.24-0.86); Monocytes % 6.4 % (4.7-12.5); Neutrophil % 72.5 % (34.0-71.1); Platelet Count 290 x10^3/uL (182-369); Red Blood Count 3.98 x10^6/uL (3.93-5.22); Red Cell Distribution Width 17.1 % (11.7-14.4); White Blood Count 7.2 x10^3/uL (3.98-10.04)
[2024-04-23 18:08] LABS: INR 0.98 (0.8-3.0); PROTIME 10.7 SECONDS (9.4-12.5)
[2024-04-23 18:13] VITALS: O2SAT 97
[2024-04-23 18:17] LABS: ALBUMIN 3.8 g/dL (3.5-5.0); ANION GAP 13.4 MEQ/L (5-15); BILIRUBIN,TOTAL 0.3 mg/dL (0.2-1.3); Calcium 8.7 mg/dL (8.4-10.2); Creatinine 1 0.67 mg/dL (0.52-1.04); EST GLOMERULAR FILTRATION RATE 110.5 ML/MIN; MAGNESIUM 1.6 mg/dL (1.6-2.3); Potassium 3.6 mmol/L (3.5-5.1); Total Protein 6.8 g/dL (6.3-8.2)
[2024-04-23 18:39] LABS: INFLUENZA A NEGATIVE (NEGATIVE); INFLUENZA B NEGATIVE (NEGATIVE); RESPIRATORY SYNCTIAL VIRUS NEGATIVE (NEGATIVE); SARS-CoV-2 Xpert Express NEGATIVE (NEGATIVE)
[2024-04-23 18:44] VITALS: RESP 18
[2024-04-23] MEDS ORDERED: ROCEPHIN 1 GM / 100 ML NaCl 1 GM/100 ML IVPB IV ONE (19:00)
[2024-04-23] MEDS: ROCEPHIN 1 GM / 100 ML NaCl 1 GM/100 ML IVPB IV ONE (19:01)
[2024-04-23 19:19] VITALS: BP 133/78; PULSE 74
--- NOTE | 2024-04-24 08:31 | XRAY ---
Indication: Cough. Short of breath. Comparison: May 16, 2023 Portable chest remains inflated and clear. Heart not enlarged for AP portable technique. Bony thorax intact. No new/acute findings.
== END 2024-04-23 19:57 | disposition home or self-care (01) ==
LOC: ED 16:40
DX: R91.8 Other nonspecific abnormal finding of lung field (principal); D64.9 Anemia, unspecified; R06.02 Shortness of breath; R05.1 Acute cough; E78.5 Hyperlipidemia, unspecified; E11.42 Type 2 diabetes mellitus with diabetic polyneuropathy; I11.0 Hypertensive heart disease with heart failure; I50.9 Heart failure, unspecified; Z79.01 Long term (current) use of anticoagulants; Z79.4 Long term (current) use of insulin; Z79.84 Long term (current) use of oral hypoglycemic drugs; Z79.899 Other long term (current) drug therapy
CPT/HCPCS: 0241U; 36000; 36415; 71045; 80053; 83735; 83880; 84484; 85025; 85610; 87040; 93005; 94760; 96365; 99284; J0696